=== PATIENT | male | born 1960 | race African-American/Black ===

== ENCOUNTER 2023-05-05 11:49 | Inpatient (IN) | payer MEDICAID, SELFPAY ==
[2023-05-05] VITALS (28 sets, daily range): BP systolic 82–132; BP diastolic 51–91; PULSE 94–121; RESP 20–41; TEMP 36.6–38.2; O2SAT 92–100; BMI 22.5
--- NOTE | 2023-05-05 12:03 | EKG12_ITS ---
Test Reason : ALT LOC Blood Pressure : / mmHG Vent. Rate : 107 BPM Atrial Rate : 107 BPM P-R Int : 112 ms QRS Dur : 076 ms QT Int : 348 ms P-R-T Axes : 045 040 050 degrees QTc Int : 464 ms Sinus tachycardia Otherwise normal ECG Confirmed by Aj Younger ([id number]), fashion editor ELIZABETH CAO ([id number]) on 05/06/2023 10:34:44 AM Referred By: Confirmed By:Aj Younger
--- NOTE | 2023-05-05 12:04 | CT_ITS ---
EXAM: CT HEAD WITHOUT INTRAVENOUS CONTRAST CLINICAL INDICATION: AMS TECHNIQUE: Multiple axial images were obtained of the head without intravenous contrast. This CT exam was performed using one or more of the following dose reduction techniques: automated exposure control, adjustment of the mA and/or kV according to patient size, and/or use of iterative reconstruction technique. COMPARISON: No relevant prior studies available. FINDINGS: BRAIN AND EXTRA-AXIAL SPACES: Chronic bilateral basal ganglia and left thalamic lacunar infarcts noted. No hemorrhage or mass effect. No acute ischemia. Areas of diminished white matter density noted within both cerebral hemispheres suggestive of chronic microvascular change. Prominence of the cortical sulci and ventricles related to volume loss change. BONES/JOINTS: Normal calvarium. SINUSES: Mucoperiosteal thickening of the right maxillary sinus noted indicative of chronic sinusitis. MASTOID AIR CELLS: Normal. Clear. CT/Brain/Head without Contrast IMPRESSION: No acute intracranial abnormality. Chronic microvascular changes. Electronically Signed: Cricket Lancaster MD at 13:36 EST ,
--- NOTE | 2023-05-05 12:07 | ED.VIS.DYS ---
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 Nicotine dependence, other tobacco product, uncomplicated Other hereditary and idiopathic neuropathies Type 2 diabetes mellitus without complications Vitamin D deficiency, unspecified Home Medications ammonium lactate 12 % topical cream 1 applic topical BID PRN dry skin 05/05/23 [History Last Taken Unknown] aspirin 81 mg chewable tablet 1 tab feeding tube DAILY CARDIOVASCULAR 05/05/23 [History Last Taken Unknown] atorvastatin 80 mg tablet 80 mg feeding tube DAILY CHOLESTEROL 05/05/23 [History Last Taken Unknown] carvedilol 25 mg tablet 25 mg feeding tube BID HIGH BLOOD PRESSURE 05/05/23 [History Last Taken Unknown] cholecalciferol (vitamin D3) 50 mcg (2,000 unit) capsule 50 mcg feeding tube DAILY VIT D DEFICIENCY 05/05/23 [History Last Taken Unknown] insulin glargine 100 unit/mL subcutaneous solution 16 unit subcut QPM DIABETES 05/05/23 [History Last Taken Unknown] losartan 50 mg tablet 50 mg feeding tube DAILY HIGH BLOOD PRESSURE 05/05/23 [History Last Taken Unknown] multivitamin with iron-mineral 1 tab feeding tube DAILY VITAMIN 05/05/23 [History Last Taken Unknown] thiamine HCl (vitamin B1) 100 mg tablet 100 mg feeding tube DAILY VITAMIN B DIFICIENCY 05/05/23 [History Last Taken Unknown] Allergy/AdvReac Type Severity Reaction Status Date / Time No Known Allergies Allergy Verified 05/05/23 11:58 Social History Smoking Status: Former smoker EXAM Physical Exam Const Vital Signs: 05/05/23 11:50 05/05/23 11:58 05/05/23 11:58 Temperature 98 F Temperature Source Temporal Pulse Rate 110 H 121 H Respiratory Rate 34 H 41 H Respiratory Effort Short of Breath Respiratory Depth Shallow Respiratory Pattern Tachypnea Blood Pressure 83/59 L Blood Pressure Mean 67 Pulse Ox 93 Oxygen Delivery Method Non-Rebreather Non-Rebreather Oxygen Flow Rate (L/min) 05/05/23 12:00 05/05/23 12:27 05/05/23 12:28 Temperature Temperature Source Pulse Rate 107 H Respiratory Rate 34 H Respiratory Effort Respiratory Depth Respiratory Pattern Blood Pressure 84/54 L 98/70 Blood Pressure Mean 64 79 Pulse Ox 96 94 Oxygen Delivery Method Nasal Cannula Oxygen Flow Rate (L/min) 05/05/23 13:18 Temperature Temperature Source Pulse Rate 102 H Respiratory Rate 25 H Respiratory Effort Respiratory Depth Respiratory Pattern Blood Pressure 94/60 Blood Pressure Mean 71 Pulse Ox 100 Oxygen Delivery Method High Flow Oxygen Flow Rate (L/min) 15 [facility] Medical decision making narrative: HISTORY OF PRESENT ILLNESS: 63 M here with AMS, difficulty breathing. The patient cannot provide a reliable history. Spoke to mom over the phone. Noted facility called to say the patient was having problems breathing. Notes hx of CVA, right sided paralysis. Wants pt to be full code. REVIEW OF SYSTEMS: unable to obtain ROS given mental status PHYSICAL EXAM: Nursing triage notes reviewed, Vital signs reviewed Constitutional: please see mdm HENT: MMM Eyes: Pupils equal round and reactive to light, Extraocular muscles intact Neck: No stridor, no JVD, full neck ROM Lungs: Clear to auscultation, No wheezing or rales. No increased work of breathing, no conversational dyspnea, no accessory muscle use, no nasal flaring. No respiratory distress noted Heart: Regular rate and rhythm, No murmurs, No rubs and No gallops, 2+ distal pulses (radial, femoral, posterior tibial) in all extremities Abdomen: Soft, there is no tenderness, rigidity, rebound or guarding, no obvious peritoneal signs, no palpable pulsatile abdominal masses, no auscultated abdominal bruit : No CVAT rectal: Performed with brenda Pritchett RN revealed dark stool. Sent for Hemoccult Extremities: No edema Neuro: No focal neurological deficits, cranial nerves II through XII intact, 5/5 strength in all extremities. Intact sensation to light touch in all extremities, 2+ reflexes bilateral patella tendons. Normal gait. No ataxia. Skin: No rash or lesions noted MEDICAL DECISION MAKING: Chief Complaint: AMS External records reviewed: No records noted in [facility] Factors affecting care: CVA, right hemiplegia, type 2 diabetes, COPD Social determinants of health: facility resident History obtained from others: EMS, family Consults: n internal medicine, critical care [facility] Narrative: Patient was initially hypotensive, tachycardic and tachypneic. He was also altered and somnolent responsive to painful stimuli minimally. I considered placing the patient on mechanical ventilation however took a cautious approach given hypotension and signs of tachypnea and concern for. The patient decompensation and long-term issues with being able to be weaned off the ventilator. I opted to place the patient on high flow nasal cannula to provide better oxygenation and to resuscitate the patient before I would consider intubating. I considered the following differential diagnosis: sepsis, DKA, UTI, metabolic or infectious encephalopathy, ICH, pneumonia, COVID, CHF, arrhythmia, anemia ALL IMAGES (IF OBTAINED) HAVE BEEN PERSONALLY REVIEWED AND INTERPRETED BY MYSELF. VBG without respiratory acidosis, no metabolic acidosis, no evidence of DKA CBC with leukocytosis, mild anemia, no thrombocytopenia Acetone negative Lactate elevated consistent with endorgan hypoperfusion concerning for distributive infection BMP with acute kidney injury, no significant electrolyte abnormalities,, no anion gap, bicarb normal limit suggestive of no metabolic acidosis High-sensitivity troponin is negative, no evidence of myocardial ischemia Serum albumin low consistent with malnourishment Chest x-ray was read reviewed myself shows evidence of right lower lobe infiltrate consistent with pneumonia. Radiologist agrees my interpretation CT scan head shows no evidence of intracranial abnormality The synthesis of the patient's history, physical exam, labs and images suggest respiratory failure secondary to community-acquired pneumonia. Patient received broad-spectrum antibiotics. Blood cultures and urine culture pending at this time. Given patient's reliance on high flow nasal cannula oxygen he will need admission to the intensive care unit. Discussed this with the hospitalist (Dr. Barrera). The patient and/or family, caregivers express understanding. The patient and/or family, caregivers agrees with the plan. Shared decision making: I will have a discussion with the patient and or visitors regarding risk/benefits of further testing or admission. They will be made aware of of the risk/benefits inherent in this decision they will be given the opportunity to voice understanding. Total critical care time today provided was at least 60 minutes. This excludes separately billable procedures. Critical care time (if documented) is secondary to the patient having high probability of clinically significant/life threatening deterioration in the patient's condition which required my urgent intervention. Impression: 1. AMS 2. Acute Respiratory Failure 3. Community-acquired pneumonia Dispo: Admit to ICU This note was generated with [employer] software. It may contain incorrect words, spelling, and punctuation that were not noted in review of the chart prior to signing. Lab Data Labs: Laboratory Results - last 24 hr 05/05/23 05/05/23 05/05/23 12:02 12:49 12:55 WBC 15.2 H RBC 4.74 Hgb 12.9 L Hct 41.6 MCV 87.8 MCH 27.2 MCHC 31.0 L RDW Std Deviation 39.8 RDW Coeff of [place] 12.4 Plt Count 219 MPV 12.7 H Immature Gran % (Auto) 0.300 Neut % (Auto) 77.9 H Lymph % (Auto) 13.0 L [place] % (Auto) 8.2 Eos % (Auto) 0.1 Baso % (Auto) 0.5 Absolute Neuts (auto) 11.8 H Absolute Lymphs (auto) 1.98 Nucleated RBC % 0 PT 14.2 INR 1.1 APTT 22.6 L Sodium 143 Potassium 4.7 Chloride 106 Carbon Dioxide 32.0 Anion Gap 5 BUN 77 H Creatinine 1.70 H Estim Creat Clear Calc 47.37 Est GFR (MDRD) Af Amer 53 L Est GFR (MDRD) Non-Af 44 L BUN/Creatinine Ratio 45.3 H Glucose 370 H Lactic Acid 3.0 H* Calcium 10.1 Total Bilirubin 0.40 AST 9 L ALT 26 Alkaline Phosphatase 96 Troponin I High Sens 7 Total Protein 7.0 Albumin 3.0 L Globulin 4.0 Albumin/Globulin Ratio 0.8 L Urine Color Yellow Urine Clarity Cloudy Urine pH 6.5 Ur Specific [place] 1.015 Urine Protein 100 H Urine Glucose (UA) 50 H Urine Ketones 5 H Urine Occult Blood 250 H Urine Nitrite Negative Urine Bilirubin Negative Urine Urobilinogen 1 H Ur Leukocyte Esterase 25 H Urine RBC 10-25 SEEN Urine WBC 0-5 SEEN Ur Squamous Epith Cells 0 SEEN Amorphous Sediment 4+ Urine Bacteria 0 SEEN Urine Mucus 0 SEEN Ethyl Alcohol < 3.0 Acetone Level NEGATIVE ABG Data ABG results: ABG 05/05/23 12:07 Specimen Type JER Sample Site Not entered O2 % 15.0 VBG pH 7.44 H VBG pO2 22 L VBG HCO3 33 H VBG Total CO2 35 H VBG O2 Sat (Calc) 39 L VBG Base Excess 9 H POC Mix VBG pCO2 Pt Tmp 48.7 O2 Delivery Device HFNC Radiography Diagnostic Testing: Clinical Impression(s) from Imaging Studies Brain CT 05/05/23 12:04 IMPRESSION: No acute intracranial abnormality. Chronic microvascular changes. Electronically Signed: Cricket Lancaster MD at 13:36 EST , Chest X-Ray 05/05/23 12:20 IMPRESSION: Right lower lobe pneumonia. Question small left lower lobe infiltrate. Electronically Signed: Cricket Lancaster MD at 12:51 EST , Discharge Plan Dx/Rx/DC Orders Clinical Impression: Acute hypoxemic respiratory failure Disposition Disposition: Acute Care Hospital [facility] Discharge Date/Time: 05/05/23 14:26
[2023-05-05] MEDS: 0.9% Normal Saline (1000mL) 1,000 ML 999 ML IV ×3 (12:08→15:17)
[2023-05-05 12:12] LABS: Blood Gas Specimen Type VEN; O2 Delivery Device HFNC; SITE Not entered; VBG BASE EXCESS 9 mmol/L (-1.0-3.5); VBG Bicarbonate 33 mmol/L (22-26); VBG PO2 22 mmHg (25-40); VBG SO2 39 % (50-70); VBG TCO2 35 mmol/L (23-33); VBG pCO2 48.7 mmHg (41-51); VBG pH 7.44 (7.32-7.42)
--- NOTE | 2023-05-05 12:20 | RAD_ITS ---
EXAM: XR CHEST, 1 VIEW CLINICAL INDICATION: AMS TECHNIQUE: Frontal view of the chest. COMPARISON: No relevant prior studies available. FINDINGS: LUNGS AND PLEURAL SPACES: Airspace opacification of the right lower lobe consistent with pneumonia. Questionable infiltrate left lung base. HEART: Normal heart size. MEDIASTINUM: No mediastinal or hilar mass. BONES/JOINTS: No acute abnormality. RAD/Chest 1 View (Portable) IMPRESSION: Right lower lobe pneumonia. Question small left lower lobe infiltrate. Electronically Signed: Cricket Lancaster MD at 12:51 EST ,
[2023-05-05 12:21] LABS: Absolute Lymphocyte Count 1.98 X10^3/uL (0.83-4.51); Absolute Neutrophil Count 11.8 X10^3/uL (2.0-7.7); Basophil# 0.08 X10^3/uL; Basophil% 0.5 % (0-1); Eosinophil# 0.01 X10^3/uL; Eosinophils% 0.1 % (0-5); Hematocrit 41.6 % (40-54); Hemoglobin 12.9 g/dL (13.0-16.5); Lymphocyte # 1.98 X10^3/ul (0.83-4.51); Mean Corpuscular Hgb 27.2 pg (27.0-32.0); Mean Corpuscular Volume 87.8 fL (80-94); Mean Platelet Vol. 12.7 fl (6.2-12.0); Monocyte# 1.24 X10^3/uL; Monocyte% 8.2 % (0-10); NRBC Flagged by Analyzer 0 % (0-5); Neutrophil # 11.82 X10^3/uL (2.7-7.7); Neutrophil % 77.9 % (47-70); Platelet Count 219 K/mm3 (150-450); RBC Distribution Width CV 12.4 % (11.6-14.6); RBC Distribution Width SD 39.8 fl (35.1-43.9); Red Blood Count 4.74 M/mm3 (4.6-6.2); White Blood Count 15.2 K/mm3 (4.4-11.0)
[2023-05-05 12:26] LABS: International Normalized Ratio 1.1; Prothrombin Time (Protime)PT. 14.2 SECONDS (11.7-14.9)
[2023-05-05 12:28] LABS: Partial Thromboplast Time 22.6 Seconds (24.1-36.2)
--- NOTE | 2023-05-05 12:32 | ED.RN ---
NO OLD EKG
[2023-05-05 12:34] LABS: ALB/GLOB Ratio 0.8 RATIO (0.9-2.4); AST(SGOT) 9 U/L (15-37); Alanine Aminotransfer ALT/SGPT 26 U/L (16-61); Alkaline Phosphatase 96 U/L (45-117); Anion Gap 5 (5-15); BUN 77 mg/dL (7-18); BUN/Creat Ratio 45.3 RATIO (10-20); Calcium,Total 10.1 mg/dL (8.5-10.1); Chloride 106 mmol/L (98-107); EST Glomerular Filtration Rate 44 mL/min (>60); Est Glom Filt Rate - Afr Amer 53 mL/min (>60); Estimated Creatinine Clearance 47.37 ml/min; Glucose 370 mg/dL (74-106); Potassium 4.7 mmol/L (3.5-5.1); Sodium Level 143 mmol/L (136-145); Troponin-I HS 7 pg/mL (3.0-78.0)
[2023-05-05 12:59] LABS: Bacteria 0 SEEN /hpf (None Seen); Mucous, Urine 0 SEEN /hpf (<or=2+); Squamous Epithelial Cells - UA 0 SEEN /hpf (0-5)
[2023-05-05 13:03] LABS: Color, Urine Yellow (Yellow); Glucose, Dipstick 50 mg/dl (Normal); Ketone-Dipstick 5 mg/dl (Negative); Leukocyte Esterase-Dipstick 25 /ul (Negative); Nitrite-Dipstick Negative (Negative); Occult Blood-Urine 250 /ul (Negative); Protein-Dipstick 100 mg/dl (Negative); Specific Gravity, Urine 1.015 (1.002-1.030); Urine Bilirubin Dipstick Negative (Negative); Urine Clarity Cloudy (Clear); Urine Urobilinogen 1 mg/dl (Normal); Urine pH 6.5 (5.0 - 8.0)
[2023-05-05 13:12] LABS: Amorphous Sediment 4+; Red Blood Cells-Urine 10-25 SEEN /hpf (0-5); White Blood Cells 0-5 SEEN /hpf (0-5)
[2023-05-05] MEDS: Piperacil/Tazobactam 4.5 GM in 0.9% Normal Saline (100mL MB+) 100 ML IV (13:16)
[2023-05-05 13:45] LABS: Alcohol, Blood (Medical)-Serum < 3.0 mg/dL
--- NOTE | 2023-05-05 13:45 | HP.PCM_ITS ---
HPI - General General Date of Admission: 05/05/23 Date of Service: 05/05/23 Chief Complaint: shortness of breath HPI Narrative DREA MORLEY, is a 63 M who presents via the ED on 05/05/2023 with a PMH as outlined with a complaint of shortness of breath. [facility] from [facility] facility. He was noted to be short of breath and somnolent in his SNF. Patient was alert but could not give much of a history. Vitals in the ED were BP of 94/60, MA of 102, RR of 25 and oxygen sats of 100% on 15L of high flow oxygen. CBC showed hemoglobin of 12.9 with WBC of 15.2 with platelets of 219. Chemistry shows sodium of 143 with potassium of 4.7 and creatinine of 1.7. Lactic acid was 3 and calcium was 10.1. Urinalysis showed 3+ bacteria. CXR showed a right lower lobe pneumonia and brain CT showed no acute intracranial abnormality. He is being admitted to be managed for acute hypoxic respiratory failure due to community acquired pneumonia. [facility] Medical History (Updated 05/05/23 @ 13:[address] 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 Nicotine dependence, other tobacco product, uncomplicated Other hereditary and idiopathic neuropathies Type 2 diabetes mellitus without complications Vitamin D deficiency, unspecified Home Medications ammonium lactate 12 % topical cream 1 applic topical BID PRN dry skin 05/05/23 [History Last Taken Unknown] aspirin 81 mg chewable tablet 1 tab feeding tube DAILY CARDIOVASCULAR 05/05/23 [History Last Taken Unknown] aspirin 81 mg tablet,delayed release (Adult Aspirin Regimen) 81 mg PO DAILY heart 05/05/23 [History Last Taken Unknown] atorvastatin 80 mg tablet 80 mg PO DAILY cholesterol 05/05/23 [History Last Taken Unknown] atorvastatin 80 mg tablet 80 mg feeding tube DAILY CHOLESTEROL 05/05/23 [History Last Taken Unknown] carvedilol 25 mg tablet 25 mg PO BID blood pressur 05/05/23 [History Last Taken Unknown] carvedilol 25 mg tablet 25 mg feeding tube BID HIGH BLOOD PRESSURE 05/05/23 [History Last Taken Unknown] cholecalciferol (vitamin D3) 50 mcg (2,000 unit) capsule 50 mcg PO DAILY bone health 05/05/23 [History Last Taken Unknown] cholecalciferol (vitamin D3) 50 mcg (2,000 unit) capsule 50 mcg feeding tube DA [place]ENA VIT D DEFICIENCY 05/05/23 [History Last Taken Unknown] insulin glargine 100 unit/mL subcutaneous solution 16 unit subcut QPM DIABETES 05/05/23 [History Last Taken Unknown] insulin glargine-yfgn 100 unit/mL subcutaneous solution 16 unit subcut QPM blood sugar 05/05/23 [History Last Taken Unknown] losartan 50 mg tablet 50 mg feeding tube DAILY HIGH BLOOD PRESSURE 05/05/23 [History Last Taken Unknown] losartan 50 mg tablet (Cozaar) 50 mg PO DAILY heart 05/05/23 [History Last Taken Unknown] multivitamin with iron-mineral 1 tab feeding tube DAILY VITAMIN 05/05/23 [History Last Taken Unknown] thiamine HCl (vitamin B1) 100 mg tablet 100 mg PO DAILY supplement 05/05/23 [History Last Taken Unknown] thiamine HCl (vitamin B1) 100 mg tablet 100 mg feeding tube DAILY VITAMIN B DIFICIENCY 05/05/23 [History Last Taken Unknown] Allergy/AdvReac Type Severity Reaction Status Date / Time No Known Allergies Allergy Verified 05/05/23 11:58 Social History Smoking Status: Former smoker ROS Review of Systems ROS Unobtainable: due to encephalopathy Vital Signs Vital Signs Vital Signs: 05/05/23 11:50 05/05/23 11:58 05/05/23 11:58 Temperature 98 F Temperature Source Temporal Pulse Rate 110 H 121 H Respiratory Rate 34 H 41 H Respiratory Effort Short of Breath Respiratory Depth Shallow Respiratory Pattern Tachypnea Blood Pressure 83/59 L Blood Pressure Mean 67 Pulse Ox 93 Oxygen Delivery Method Non-Rebreather Non-Rebreather Oxygen Flow Rate (L/min) 05/05/23 12:00 05/05/23 12:27 05/05/23 12:28 Temperature Temperature Source Pulse Rate 107 H Respiratory Rate 34 H Respiratory Effort Respiratory Depth Respiratory Pattern Blood Pressure 84/54 L 98/70 Blood Pressure Mean 64 79 Pulse Ox 96 94 Oxygen Delivery Method Nasal Cannula Oxygen Flow Rate (L/min) 05/05/23 13:18 Temperature Temperature Source Pulse Rate 102 H Respiratory Rate 25 H Respiratory Effort Respiratory Depth Respiratory Pattern Blood Pressure 94/60 Blood Pressure Mean 71 Pulse Ox 100 Oxygen Delivery Method High Flow Oxygen Flow Rate (L/min) 15 Weight Weight: 166 lb 0.129 oz Body Mass Index (BMI) 22.5 Physical Exam Const Constitutional Narrative: alert, opens his eyes in response to voice but could not respond to any questions Orientation / Consciousness: lethargic HEENT normocephalic and head/scalp atraumatic Eyes PERRL and EOMs intact bilaterally Lymph Lymphatic: no lymphadenopathy noted Resp Resp Narrative: diminished breath sounds bilaterally. Coarse crackles in right lower lung base, no crackles. tachypneic. Effort and Inspection: respiratory distress Cardio Cardio Narrative: tachycardia, normal S1 and S2, no murmurs. GI normal to inspection, nondistended, normoactive bowel sounds, soft to palpation, non-tender and non-distended Extremity normal capillary refill, no clubbing, cyanosis or edema and no calf tenderness Skin General Skin Exam: no breakdown Neuro Neuro Narrative: alert, nonverbal, frail. Right hemiplegia with right hand contracted due to history of previous stroke Motor Exam: general weakness Psych Mood & Affect: flat affect Results Lab / Micro Data 05/05/23 12:02 05/05/23 12:02 Labs: Laboratory Results - last 24 hr 05/05/23 12:02: WBC 15.2 H, RBC 4.74, Hgb 12.9 L, Hct 41.6, MCV 87.8, MCH 27.2, MCHC 31.0 L, RDW Std Deviation 39.8, RDW Coeff of [place] 12.4, Plt Count 219, MPV 12.7 H, Immature Gran % (Auto) 0.300, Neut % (Auto) 77.9 H, Lymph % (Auto) 13.0 L, [place] % (Auto) 8.2, Eos % (Auto) 0.1, Baso % (Auto) 0.5, Absolute Neuts (auto) 11.8 H, Absolute Lymphs (auto) 1.98, Nucleated RBC % 0, PT 14.2, INR 1.1, APTT 22.6 L, Sodium 143, Potassium 4.7, Chloride 106, Carbon Dioxide 32.0, Anion Gap 5, BUN 77 H, Creatinine 1.70 H, Estim Creat Clear Calc 47.37, Est GFR (MDRD) Af Amer 53 L, Est GFR (MDRD) Non-Af 44 L, BUN/Creatinine Ratio 45.3 H, Glucose 370 H, Lactic Acid 3.0 H*, Calcium 10.1, Total Bilirubin 0.40, AST 9 L, ALT 26, Alkaline Phosphatase 96, Troponin I High Sens 7, Total Protein 7.0, Albumin 3.0 L, Globulin 4.0, Albumin/Globulin Ratio 0.8 L, Acetone Level NEGATIVE 05/05/23 12:49: Ethyl Alcohol < 3.0 05/05/23 12:55: Urine Color Yellow, Urine Clarity Cloudy, Urine pH 6.5, Ur Specific [place] 1.015, Urine Protein 100 H, Urine Glucose (UA) 50 H, Urine Ketones 5 H, Urine Occult Blood 250 H, Urine Nitrite Negative, Urine Bilirubin Negative, Urine Urobilinogen 1 H, Ur Leukocyte Esterase 25 H, Urine RBC 10-25 SEEN, Urine WBC 0-5 SEEN, Ur Squamous Epith Cells 0 SEEN, Amorphous Sediment 4+, Urine Bacteria 0 SEEN, Urine Mucus 0 SEEN Micro: Microbiology 05/05/23 12:20 Mucosa - Nose SARS-CoV-2, Influenza & RSV (PCR) - Final 05/05/23 12:25 Stool Stool Occult Blood (JOANA) - Final Occult Blood Positive ABG Data ABG results: ABG 05/05/23 12:07 Specimen Type JER Sample Site Not entered O2 % 15.0 VBG pH 7.44 H VBG pO2 22 L VBG HCO3 33 H VBG Total CO2 35 H VBG O2 Sat (Calc) 39 L VBG Base Excess 9 H POC Mix VBG pCO2 Pt Tmp 48.7 O2 Delivery Device HFNC Imaging Radiology Impression Brain CT 05/05/23 12:04 IMPRESSION: No acute intracranial abnormality. Chronic microvascular changes. Electronically Signed: Cricket Lancaster MD at 13:36 EST , Chest X-Ray 05/05/23 12:20 IMPRESSION: Right lower lobe pneumonia. Question small left lower lobe infiltrate. Electronically Signed: Cricket Lancaster MD at 12:51 EST , Assessment & Plan Assessment/Plan (1) Acute hypoxemic respiratory failure: (2) Pneumonia: PLAN: Plan #Acute hypoxic respiratory failure due to community acquired pneumonia * admitted with a complaint of shortness of breath. * CXR showed right lower lobe pneumonia * now on 15L of oxygen. * start on IV zosyn and vancomycin * get urine for strep and legionella * get sputum and blood cultures * consult critical care * titrate oxygen to maintain sats >90% * low threshold for intubation * #Lactic acidosis:lactic acid is 3. Likely due to hypoxia. Should resolve with hydration and as respiratory status improves #History of stroke: has right sided hemiplegia. Will monitor. On aspirin, plavix and carvedilol. Hold carvedilol due to hypotension #Hypertension: On losartan and carvedilol. Will hold these due to hypotension. #Type 2 diabetes mellitus: On Lantus 16 units twice daily. Insulin sliding sca le. Accu-Cheks ACHS. #DVT prophylaxis; lovenox Code status: full code- unverified. Patient unable to communicate, but per ED doctor he spoke to patient's mother who wanted him to be full code. Charges/Coding Visit Charges Inpatient E&M: 10513 Init Hosp L3 Procedures Hospitalists Procedures: 51816 Advncd Care Plan 30 Min
[2023-05-05] MEDS: Vancomycin HCl 1,250 MG in 0.9% Normal Saline (250mL Bag) 250 ML 167 MG IV (13:56)
--- NOTE | 2023-05-05 14:01 | ED.RN ---
PER DR DESAI TO ADMINISTER 3RD 1000ML AT A RATE OF 250MLS/HR ONCE 2ND 1000ML BOLUS IS COMPLETE.
[2023-05-05 14:29] LABS: Bedside Glucose 351 mg/dL (74-106)
--- NOTE | 2023-05-05 14:40 | PCM.RX.CS ---
Consult Antibiotic Management Pharmacy has been consulted to manage selected antibiotic: Vancomycin Type of Intervention Type of Consult: New start Suspected Infection Suspected Infection: Pneumonia Prior Doses of Antibiotics Prior Doses of Antibiotics Received/Current Regimen: Vancomycin 1250 mg IV x 1 given 05/05/23 @ 1356, also patient is on piperacillin/tazobactam 3.375 grams Q8H Labs Labs: Sodium 143 mmol/L (136-145) 05/05/23 12:02 Potassium 4.7 mmol/L (3.5-5.1) 05/05/23 12:02 Chloride 106 mmol/L (98-107) 05/05/23 12:02 Carbon Dioxide 32.0 mmol/L (21.0-32.0) 05/05/23 12:02 Anion Gap 5 (5-15) 05/05/23 12:02 BUN 77 mg/dL (7-18) H 05/05/23 12:02 Creatinine 1.70 mg/dL (0.70-1.30) H 05/05/23 12:02 Est GFR (MDRD) Af Amer 53 mL/min (>60) L 05/05/23 12:02 Est GFR (MDRD) Non-Af 44 mL/min (>60) L 05/05/23 12:02 BUN/Creatinine Ratio 45.3 RATIO (10-20) H 05/05/23 12:02 Glucose 370 mg/dL (74-106) H 05/05/23 12:02 Microbiology Microbiology: Microbiology 05/05/23 12:20 Mucosa - Nose SARS-CoV-2, Influenza & RSV (PCR) - Final 05/05/23 12:25 Stool Stool Occult Blood (JOANA) - Final Occult Blood Positive Dosing Weight Weight used for dosin.3 kg Estimated Creatinine Clearance Estimated Creatinine Clearance: ~47 Goal Trough Goal Trough: 15-20 mcg/mL Pharmacy Plan for Drug Dosing Pharmacy Plan for Drug Dosing: Vancomycin 1250 mg IV x1, followed by 500 mg IV Q12H based on weight and renal function Pharmacy Service will continue to monitor and adjust dosing as required. Follow-Up Labs Follow-Up Labs: Trough: Vancomycin Date/Time Labs Ordered Labs to be done on [date and time ordered]: 05/10/23 @ 8602
--- NOTE | 2023-05-05 15:34 | PCMCONS.TICU ---
HPI Consult Data Date of Consult: 05/05/23 HPI Narrative HPI Narrative: 63yo M w/ CVA 12/2022 c/b R sided hemiplegia, DM, h/o EtOH/tobacco abuse, anemia, dysphagia s/p G-tube who was admitted for respiratory failure. He is unable to provide much history. Per his sister he was apparently [facility] when [facility], however earlier today he apparently developed worsening lethargy and respiratory distress and so was sent here. He was hypoxic on arrival requiring up to 15L NC, now weaning down. Also febrile and hypotensive, now s/p 3L IVF boluses. He is lethargic but is arousable and will answer some simple questions when stimulated. At baseline per family he does have some intermittent mild confusion and word slurring, but can carry some conversations. He apparently is given some careful oral feeding along with G tube feedings, no reported vomiting or choking recently. He was also noted to have several melanic bowel movements here. No prior h/o cardiac or pulmonary disease. Used to drink EtOH heavily daily and smoke tobacco until he had his CVA. 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 Nicotine dependence, other tobacco product, uncomplicated Other hereditary and idiopathic neuropathies Type 2 diabetes mellitus without complications Vitamin D deficiency, unspecified Home Medications ammonium lactate 12 % topical cream 1 applic topical BID PRN dry skin 05/05/23 [History Last Taken Unknown] aspirin 81 mg chewable tablet 1 tab feeding tube DAILY CARDIOVASCULAR 05/05/23 [History Last Taken Unknown] atorvastatin 80 mg tablet 80 mg feeding tube DAILY CHOLESTEROL 05/05/23 [History Last Taken Unknown] carvedilol 25 mg tablet 25 mg feeding tube BID HIGH BLOOD PRESSURE 05/05/23 [History Last Taken Unknown] cholecalciferol (vitamin D3) 50 mcg (2,000 unit) capsule 50 mcg feeding tube DAILY VIT D DEFICIENCY 05/05/23 [History Last Taken Unknown] insulin glargine 100 unit/mL subcutaneous solution 16 unit subcut QPM DIABETES 05/05/23 [History Last Taken Unknown] losartan 50 mg tablet 50 mg feeding tube DAILY HIGH BLOOD PRESSURE 05/05/23 [History Last Taken Unknown] multivitamin with iron-mineral 1 tab feeding tube DAILY VITAMIN 05/05/23 [History Last Taken Unknown] thiamine HCl (vitamin B1) 100 mg tablet 100 mg feeding tube DAILY VITAMIN B DIFICIENCY 05/05/23 [History Last Taken Unknown] Allergy/AdvReac Type Severity Reaction Status Date / Time No Known Allergies Allergy Verified 05/05/23 11:58 Social History Smoking Status: Former smoker ROS Review of Systems ROS Unobtainable: due to encephalopathy Objective Data Objective Data Vital Signs: Vital Signs Last response Temperature 38.1 C H 05/05/23 14:55 Temperature Source Core 05/05/23 14:55 Pulse Rate 105 H 05/05/23 14:55 Respiratory Rate 27 H 05/05/23 14:55 Respiratory Effort Short of Breath 05/05/23 11:58 Respiratory Depth Shallow 05/05/23 11:58 Respiratory Pattern Tachypnea 05/05/23 11:58 Blood Pressure 95/55 L 05/05/23 14:55 Blood Pressure Mean 68 05/05/23 14:55 Blood Pressure Source Monitor 05/05/23 14:55 Blood Pressure Position Semi-Fowlers 05/05/23 14:55 Blood Pressure Location Right Arm 05/05/23 14:55 Pulse Ox 100 05/05/23 14:55 Oxygen Delivery Method High Flow 05/05/23 14:55 Oxygen Flow Rate (L/min) 15 05/05/23 14:55 I&O: I&O Last 24 Hours 05/04/23 05/05/23 05/05/23 23:59 11:59 23:59 Intake Total 2099 Balance 2099 I&O: Total Stay 05/05/23 11:49 thru 05/05/23 15:16 Intake Total 2099 Current Meds Ordered / Administered: Current meds ordered / Administered Generic Name Dose Route Start Last Admin Trade Name Freq PRN Reason Stop Dose Admin Acetaminophen 650 mg 05/05/23 14:29 Acetaminophen 325 Mg Tablet PO Q6H PRN PRN Pain 1-10 Or Fever >100.7 Enoxaparin Sodium 40 mg 05/06/23 10:00 Enoxaparin 40 Mg/0.4 Ml Syringe SC DAILY VINCE Sodium Chloride 1,000 mls @ 150 mls/hr 05/05/23 14:29 IV 05/06/23 03:48 .[id number] [facility] Vancomycin IV-PHARMACY TO DOSE 500 mls @ 250 mls/hr 05/05/23 14:29 1 each/ Sodium Chloride IV PRN PRN Rx to Dose Protocol Piperacillin Sod/Tazobactam 50 mls @ 12.5 mls/hr 05/05/23 22:00 Sod 3.375 gm/ Sodium Chloride IV Q8 VINCE Sodium Chloride 250 mls @ 15 mls/hr 05/05/23 14:40 IV .[id number] PRN Additional IVPB Infusion Sodium Chloride 250 mls @ 15 mls/hr 05/05/23 14:40 IV .[id number] PRN Saline Flush Vancomycin HCl 500 mg in 100 mls @ 100 mls/hr 05/06/23 02:00 IV Q12H VINCE Morphine Sulfate 2 - 4 mg 05/05/23 14:29 Morphine 2 Mg/Ml Syringe IV Q3H PRN PRN Pain Score 6-10 Ondansetron HCl 4 mg 05/05/23 14:29 Ondansetron 4 Mg/2 Ml Vial IV Q8H PRN PRN NAUSEA/VOMITING Sodium Chloride 10 - 40 ml 05/05/23 14:40 0.9% Saline Lock 10 Ml Syringe IV UD PRN SALINE FLUSH Vancomycin Protocol 1 lab 05/06/23 23:30 Vancomycin Trough/Random Due 05/07/23 03:30 DAILY [facility] Lab / Micro Data 05/05/23 12:02 05/05/23 12:02 Labs: Laboratory Results - last 24 hr 05/05/23 12:02: WBC 15.2 H, RBC 4.74, Hgb 12.9 L, Hct 41.6, MCV 87.8, MCH 27.2, MCHC 31.0 L, RDW Std Deviation 39.8, RDW Coeff of [place] 12.4, Plt Count 219, MPV 12.7 H, Immature Gran % (Auto) 0.300, Neut % (Auto) 77.9 H, Lymph % (Auto) 13.0 L, [place] % (Auto) 8.2, Eos % (Auto) 0.1, Baso % (Auto) 0.5, Absolute Neuts (auto) 11.8 H, Absolute Lymphs (auto) 1.98, Nucleated RBC % 0, PT 14.2, INR 1.1, APTT 22.6 L, Sodium 143, Potassium 4.7, Chloride 106, Carbon Dioxide 32.0, Anion Gap 5, BUN 77 H, Creatinine 1.70 H, Estim Creat Clear Calc 47.37, Est GFR (MDRD) Af Amer 53 L, Est GFR (MDRD) Non-Af 44 L, BUN/Creatinine Ratio 45.3 H, Glucose 370 H, Lactic Acid 3.0 H*, Calcium 10.1, Total Bilirubin 0.40, AST 9 L, ALT 26, Alkaline Phosphatase 96, Troponin I High Sens 7, Total Protein 7.0, Albumin 3.0 L, Globulin 4.0, Albumin/Globulin Ratio 0.8 L, Acetone Level NEGATIVE 05/05/23 12:49: Ethyl Alcohol < 3.0 05/05/23 12:55: Urine Color Yellow, Urine Clarity Cloudy, Urine pH 6.5, Ur Specific [place] 1.015, Urine Protein 100 H, Urine Glucose (UA) 50 H, Urine Ketones 5 H, Urine Occult Blood 250 H, Urine Nitrite Negative, Urine Bilirubin Negative, Urine Urobilinogen 1 H, Ur Leukocyte Esterase 25 H, Urine RBC 10-25 SEEN, Urine WBC 0-5 SEEN, Ur Squamous Epith Cells 0 SEEN, Amorphous Sediment 4+, Urine Bacteria 0 SEEN, Urine Mucus 0 SEEN 05/05/23 13:58: POC Glucose 351 H Micro: Microbiology 05/05/23 12:20 Mucosa - Nose SARS-CoV-2, Influenza & RSV (PCR) - Final 05/05/23 12:25 Stool Stool Occult Blood (JOANA) - Final Occult Blood Positive ABG Data ABG results: ABG 05/05/23 12:07 Specimen Type JER Sample Site Not entered O2 % 15.0 VBG pH 7.44 H VBG pO2 22 L VBG HCO3 33 H VBG Total CO2 35 H VBG O2 Sat (Calc) 39 L VBG Base Excess 9 H POC Mix VBG pCO2 Pt Tmp 48.7 O2 Delivery Device HFNC Imaging Radiology Impression Brain CT 05/05/23 12:04 IMPRESSION: No acute intracranial abnormality. Chronic microvascular changes. Electronically Signed: Cricket Lancaster MD at 13:36 EST , Chest X-Ray 05/05/23 12:20 IMPRESSION: Right lower lobe pneumonia. Question small left lower lobe infiltrate. Electronically Signed: Cricket Lancaster MD at 12:51 EST , Assessment and Plan . Assessment and plan: Physical Exam: Gen - NAD, chronically ill-appearing HEENT - MMM. Sclera anicteric Resp - Diminished in bases. Mild tachypnea CV - RRR. No m/g/r Abd - Soft, NT, ND. +G-tube in place Ext - No c/c/e. MSK - No joint swelling/deformity Skin - No rashes? Neuro - Lethargic. Baseline hemiplegia. Will wake up when stimulated and can answer some simple questions, but falls back asleep I have reviewed the pertinent vital sign, laboratory, and imaging data. ASSESSMENT: # Acute hypoxic respiratory failure # Pneumonia - possible aspiration # GI bleed/melena # Lactic acidosis # YADI - vs CKD, unknown baseline # CVA 12/2022 c/b R sided hemiplegia # DM # h/o EtOH/tobacco abuse # Anemia # Dysphagia s/p G-tube PLAN: -On 12L NC, wean to keep sats > 90%. Can switch to HHFNC if increased WOB; low threshold to intubate if worsening -Empiric vanc/cefepime/doxy (switched zosyn given renal failure). f/u Cx, MRSA nares, urine strep/legionella. COVID/flu/RSV negative -Cont IVF. Monitor for worsening hypotension, may need pressors. Trend lactate -Nebs, mucomyst -Follow CBC. Start PPI gtt. Recommend GI consult -Follow mental status. CT head without acute pathology -Speech eval when improved -SQ insulin FEN/GI: NPO Proph DVT/GI: SCDs, protonix gtt Updated family at bedside Critical Care Time: 60 mins The entirety of this encounter was completed via telemedicine
--- NOTE | 2023-05-05 15:52 | EKG12_ITS ---
Test Reason : routine Blood Pressure : / mmHG Vent. Rate : 106 BPM Atrial Rate : 106 BPM P-R Int : 120 ms QRS Dur : 076 ms QT Int : 326 ms P-R-T Axes : 045 047 042 degrees QTc Int : 433 ms Sinus tachycardia Otherwise normal ECG When compared with ECG of 05-MAY-2023 12:13, MANUAL COMPARISON REQUIRED, DATA IS UNCONFIRMED Confirmed by Aj Younegr ([id number]), avid editor ELIZABETH CAO ([id number]) on 05/07/2023 7:46:43 AM Referred By: Carlos Confirmed By:Aj Younger
[2023-05-05 16:13] LABS: Reflex Lactate? Y
[2023-05-05] MEDS: 0.9% Normal Saline (1000mL) 1,000 ML 100 ML IV (16:26)
[2023-05-05] MEDS: guaiFENesin 10 ML UDC (200MG/10ML) GT ×2 (17:13→22:33)
[2023-05-05] MEDS: Doxycycline 100 MG in Dextrose 5%-Water (250mL Bag) 250 ML 250 MG IV ×2 (17:13→22:15)
[2023-05-05] MEDS: Acetaminophen 650 MG/20 ML UDC GT (17:13)
[2023-05-05] MEDS: Pantoprazole Sodium 80 MG in 0.9% Normal Saline (50mL Bag) 15 ML 420 MG IV BOLUS (17:13)
[2023-05-05] MEDS: 0.9% Normal Saline (250mL Bag) 250 ML 15 ML IV (17:20)
[2023-05-05 17:24] LABS: Lactic Acid 4.2 mmol/L (0.4-1.9)
[2023-05-05] MEDS: Pantoprazole Sodium 80 MG in 0.9% Normal Saline (100mL Bag) 80 ML 10 MG CONT INF (17:24)
[2023-05-05 17:57] LABS: Hematocrit 34.3 % (40-54); Hemoglobin 10.2 g/dL (13.0-16.5); Mean Corp Hgb Conc 29.7 g/dL (32-36); Mean Corpuscular Hgb 26.6 pg (27.0-32.0); Mean Corpuscular Volume 89.6 fL (80-94); Mean Platelet Vol. 12.5 fl (6.2-12.0); Platelet Count 155 K/mm3 (150-450); RBC Distribution Width CV 12.4 % (11.6-14.6); RBC Distribution Width SD 39.8 fl (35.1-43.9); Red Blood Count 3.83 M/mm3 (4.6-6.2); White Blood Count 13.4 K/mm3 (4.4-11.0)
[2023-05-05 18:31] LABS: M R Staph aureus DNA By PCR Negative (Negative); Staph aureus DNA By PCR POSITIVE (Negative)
[2023-05-05 18:32] LABS: Probe Check PASS; Specimen Processing Control PASS
[2023-05-05] MEDS: Ipratropium/Albuterol Sulfate 3 ML AMPUL.NEB INHALATION (19:01)
[2023-05-05] MEDS: Budesonide Respules 0.5 MG/2 ML AMPUL.NEB. INHALATION (19:01)
[2023-05-05] MEDS: Acetylcysteine 800 MG/4 ML VIAL.NEB. INHALATION (19:03)
[2023-05-05] MEDS: Insulin Glargine-YFGN 100 UNIT/ML Pen 16 UNIT SC (22:08)
[2023-05-05] MEDS: Cefepime HCl 1 GM in 0.9% Normal Saline (50mL MB+) 50 ML IV (22:10)
[2023-05-05 22:50] LABS: Bedside Glucose 354 mg/dL (74-106)
[2023-05-06] VITALS (19 sets, daily range): BP systolic 87–133; BP diastolic 53–94; PULSE 92–113; RESP 17–34; TEMP 36.9–38.2; O2SAT 27–100; BMI 22.5; BMI 27.8
--- NOTE | 2023-05-06 00:04 | CT_ITS ---
EXAM: CT CHEST WITHOUT INTRAVENOUS CONTRAST CLINICAL INDICATION: electrical alternans TECHNIQUE: Helically acquired images were obtained of the chest without intravenous contrast. This CT exam was performed using one or more of the following dose reduction techniques: automated exposure control, adjustment of the mA and/or kV according to patient size, and/or use of iterative reconstruction technique. RADIATION DOSE: CTDIvol = 14.78 mGy, DLP = 528.03 mGy-cm COMPARISON: Single view chest 05/05/2023 FINDINGS: LUNGS AND PLEURAL SPACES: Dense right lower lobe consolidation with some additional patchy airspace disease in the right upper and left lower lobes. Small right pleural effusion. No mass. HEART: Unremarkable. Heart size is normal. No pericardial effusion. No significant coronary artery calcifications. MEDIASTINUM: Unremarkable. No mediastinal or hilar adenopathy. Esophagus is unremarkable. No hiatal hernia. THYROID: Unremarkable. No thyroid lesions. BONES/JOINTS: Unremarkable. No suspicious lytic or blastic abnormality. VASCULATURE: Unremarkable. Thoracic aorta is non-dilated. CT/Chest without Contrast IMPRESSION: Dense right lower lobe consolidation with some additional patchy airspace disease in the right upper and left lower lobes. Small right pleural effusion. Findings consistent with pneumonia. Electronically Signed: Tez Ibarra MD at 0:58 EST ,
--- NOTE | 2023-05-06 00:05 | NURSING ---
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 Notified Dr. Thomason of findings, STAT chest CT/noncon; pt transported to radiology on monitor and O2 at 2lpm NC. Returned to room and repositioned in bed.
[2023-05-06 01:17] LABS: Absolute Neutrophil Count 8.1 X10^3/uL (2.0-7.7); Basophil# 0.04 X10^3/uL; Basophil% 0.4 % (0-1); Eosinophil# 0.02 X10^3/uL; Eosinophils% 0.2 % (0-5); Hematocrit 34.8 % (40-54); Hemoglobin 10.5 g/dL (13.0-16.5); Lymphocyte % 22.3 % (19-41); Mean Corp Hgb Conc 30.2 g/dL (32-36); Mean Corpuscular Hgb 26.9 pg (27.0-32.0); Mean Corpuscular Volume 89.2 fL (80-94); Mean Platelet Vol. 12.7 fl (6.2-12.0); Monocyte# 0.55 X10^3/uL; Monocyte% 4.9 % (0-10); NRBC Flagged by Analyzer 0 % (0-5); Neutrophil # 8.05 X10^3/uL (2.7-7.7); Neutrophil % 71.9 % (47-70); Platelet Count 171 K/mm3 (150-450); RBC Distribution Width CV 12.5 % (11.6-14.6); RBC Distribution Width SD 40.5 fl (35.1-43.9); White Blood Count 11.2 K/mm3 (4.4-11.0)
[2023-05-06 01:32] LABS: Anion Gap 5 (5-15); BUN 70 mg/dL (7-18); BUN/Creat Ratio 47.3 RATIO (10-20); Calcium,Total 9.1 mg/dL (8.5-10.1); Chloride 115 mmol/L (98-107); Creatinine, Serum 1.48 mg/dL (0.70-1.30); EST Glomerular Filtration Rate 51 mL/min (>60); Est Glom Filt Rate - Afr Amer 62 mL/min (>60); Estimated Creatinine Clearance 56.07 ml/min; Glucose 400 mg/dL (74-106); Potassium 3.9 mmol/L (3.5-5.1); Sodium Level 145 mmol/L (136-145)
[2023-05-06] MEDS: Acetylcysteine 800 MG/4 ML VIAL.NEB. INHALATION ×2 (01:36→06:49)
[2023-05-06] MEDS: Ipratropium/Albuterol Sulfate 3 ML AMPUL.NEB INHALATION ×4 (01:36→20:04)
[2023-05-06 01:42] LABS: Lactic Acid 3.3 mmol/L (0.4-1.9)
--- NOTE | 2023-05-06 01:52 | CPS ---
Patient agitated and not keeping aerosol mask on. Patient only took half of treatment at this time
[2023-05-06] MEDS: Vancomycin IV 500 MG/100 ML BAG 100 MG IV ×2 (02:03→13:28)
[2023-05-06] MEDS: 0.9% Saline Lock 10 ML Syringe IV ×3 (02:04→22:05)
[2023-05-06] MEDS: Pantoprazole Sodium 80 MG in 0.9% Normal Saline (100mL Bag) 80 ML 10 MG CONT INF ×3 (03:23→22:04)
[2023-05-06] MEDS: 0.9% Normal Saline (1000mL) 1,000 ML 100 ML IV (03:23)
[2023-05-06 05:14] LABS: Reflex Lactate? Y
[2023-05-06] MEDS: guaiFENesin 10 ML UDC (200MG/10ML) GT ×3 (06:49→22:06)
[2023-05-06] MEDS: Budesonide Respules 0.5 MG/2 ML AMPUL.NEB. INHALATION ×2 (06:49→20:04)
--- NOTE | 2023-05-06 07:18 | PCM.PN.INT ---
Assessment & Plan Assessment/Plan (1) Acute hypoxemic respiratory failure: (2) Pneumonia: PLAN: Plan RECOMMENDATIONS: 1. Continue antibiotics as ordered. 2. Discontinue IV fluids. 3. Supplemental oxygen, if needed, to maintain saturations at or above 90%. 4. Maintain n.p.o. status. 5. Speech therapy evaluation. 6. Restart bolus tube feeding per baseline regimen. 7. Continue bronchodilator therapy. IMPRESSIONS: 1. Acute hypoxemic respiratory failure The patient was initially admitted to the hospital from his nursing facility in the setting of acute respiratory failure over concerns for aspiration pneumonia. The patient has improved clinically over the last 24 hours with supportive care, including supplemental oxygen and IV antimicrobial therapy. In addition, the patient is being maintained on scheduled bronchodilators, which will be continued without change. Recommend continuing antibiotics as ordered. The patient is currently maintaining appropriate oxygen saturations on room air. Speech therapy is scheduled to evaluate the patient today. The patient will be maintained n.p.o. status. Baseline bolus tube feeding can be initiated today from my perspective. 2. History of CVA with residual right-sided hemiplegia/hypertension/diabetes mellitus/history of alcohol and tobacco dependency/dysphagia Complicates care, management, recovery and prognosis. Continue home medications as indicated. Speech therapy to evaluate the patient. Maintain n.p.o. status for now. This note was generated with [employer] dictation software. It may contain incorrect words, spelling, and punctuation that were not noted in checking the note before signing. Subjective Subjective The patient was seen and examined at the bedside this morning. Events from the last 24 hours have been reviewed. The patient is currently afebrile, hemodynamically stable and maintaining appropriate oxygen saturations on room air. The patient was admitted yesterday after presenting from his senior living facility with shortness of breath. There is concern for potential aspiration event leading to his clinical decompensation. The patient has improved significantly from a respiratory perspective over the last 24 hours. White count this morning was noted to be 11,000 with a hemoglobin of 10.5 g/dL. Platelet count is normal. The patient is essentially nonverbal this morning. Objective Data Objective Data The patient's most recent lab work, culture data and imaging studies have all been personally reviewed. Stool for occult blood was noted to be positive on May 04. Strep and urine Legionella antigens were negative. Blood and urine cultures are pending. Vital Signs: Vital Signs Temp Pulse Resp BP Pulse Ox O2 Del Method O2 Flow Rate 100.4 F H 109 H 34 H 119/75 94 Nasal Cannula 2 05/06/23 06:00 05/06/23 07:00 05/06/23 07:00 05/06/23 07:00 05/06/23 07:00 05/06/23 07:00 05/06/23 07:00 Oxygen Flow Rate (L/min) 2 Oxygen Delivery Method Nasal Cannula Weight: 205 lb 0.478 oz Body Mass Index (BMI) 27.8 Intake & Output: Intake and Output for Last 24 Hours 05/04/23 05/05/23 05/06/23 23:59 23:59 23:59 Intake Total 4634.17 / 4634.17 655.58 / 655.58 Output Total 800 / 1150 850 / 850 Balance 3834.17 / 3484.17 -194.42 / -194.42 Lab / Micro Data Attestation: I reviewed the patient's lab results. 05/06/23 01:05 05/06/23 01:05 Labs: Laboratory Results - last 24 hr 05/05/23 12:02: WBC 15.2 H, RBC 4.74, Hgb 12.9 L, Hct 41.6, MCV 87.8, MCH 27.2, MCHC 31.0 L, RDW Std Deviation 39.8, RDW Coeff of [place] 12.4, Plt Count 219, MPV 12.7 H, Immature Gran % (Auto) 0.300, Neut % (Auto) 77.9 H, Lymph % (Auto) 13.0 L, [place] % (Auto) 8.2, Eos % (Auto) 0.1, Baso % (Auto) 0.5, Absolute Neuts (auto) 11.8 H, Absolute Lymphs (auto) 1.98, Nucleated RBC % 0, PT 14.2, INR 1.1, APTT 22.6 L, Sodium 143, Potassium 4.7, Chloride 106, Carbon Dioxide 32.0, Anion Gap 5, BUN 77 H, Creatinine 1.70 H, Estim Creat Clear Calc 47.37, Est GFR (MDRD) Af Amer 53 L, Est GFR (MDRD) Non-Af 44 L, BUN/Creatinine Ratio 45.3 H, Glucose 370 H, Lactic Acid 3.0 H*, Calcium 10.1, Total Bilirubin 0.40, AST 9 L, ALT 26, Alkaline Phosphatase 96, Troponin I High Sens 7, Total Protein 7.0, Albumin 3.0 L, Globulin 4.0, Albumin/Globulin Ratio 0.8 L, Acetone Level NEGATIVE 05/05/23 12:49: Ethyl Alcohol < 3.0 05/05/23 12:55: Urine Color Yellow, Urine Clarity Cloudy, Urine pH 6.5, Ur Specific [place] 1.015, Urine Protein 100 H, Urine Glucose (UA) 50 H, Urine Ketones 5 H, Urine Occult Blood 250 H, Urine Nitrite Negative, Urine Bilirubin Negative, Urine Urobilinogen 1 H, Ur Leukocyte Esterase 25 H, Urine RBC 10-25 SEEN, Urine WBC 0-5 SEEN, Ur Squamous Epith Cells 0 SEEN, Amorphous Sediment 4+, Urine Bacteria 0 SEEN, Urine Mucus 0 SEEN 05/05/23 13:58: POC Glucose 351 H 05/05/23 15:00: S.aureus Protein A PCR Cancelled 05/05/23 15:00: S.aureus Protein A PCR POSITIVE H, MRSA (PCR) Cancelled 05/05/23 15:00: MRSA (PCR) Negative 05/05/23 16:30: Lactic Acid 4.2 H* 05/05/23 17:50: WBC 13.4 H, RBC 3.83 L, Hgb 10.2 L, Hct 34.3 L, MCV 89.6, MCH 26.6 L, MCHC 29.7 L, RDW Std Deviation 39.8, RDW Coeff of [place] 12.4, Plt Count 155, MPV 12.5 H 05/05/23 22:07: POC Glucose 354 H 05/06/23 01:05: WBC 11.2 H, RBC 3.90 L, Hgb 10.5 L, Hct 34.8 L, MCV 89.2, MCH 26.9 L, MCHC 30.2 L, RDW Std Deviation 40.5, RDW Coeff of [place] 12.5, Plt Count 171, MPV 12.7 H, Immature Gran % (Auto) 0.300, Neut % (Auto) 71.9 H, Lymph % (Auto) 22.3, [place] % (Auto) 4.9, Eos % (Auto) 0.2, Baso % (Auto) 0.4, Absolute Neuts (auto) 8.1 H, Absolute Lymphs (auto) 2.50, Nucleated RBC % 0, Sodium 145, Potassium 3.9, Chloride 115 H, Carbon Dioxide 25.0, Anion Gap 5, BUN 70 H, Creatinine 1.48 H, Estim Creat Clear Calc 56.07, Est GFR (MDRD) Af Amer 62, Est GFR (MDRD) Non-Af 51 L, BUN/Creatinine Ratio 47.3 H, Glucose 400 H, Lactic Acid 3.3 H*, Calcium 9.1 Micro: Microbiology 05/05/23 12:55 Urine Catheter - [place] Legionella Antigen - Final 05/05/23 12:55 Urine Catheter - [place] Streptococcus pneumoniae Antigen (M - Final 05/05/23 12:20 Mucosa - Nose SARS-CoV-2, Influenza & RSV (PCR) - Final 05/05/23 12:25 Stool Stool Occult Blood (JOANA) - Final Occult Blood Positive ABG Data ABG results: ABG 05/05/23 12:07 Specimen Type JER Sample Site Not entered O2 % 15.0 VBG pH 7.44 H VBG pO2 22 L VBG HCO3 33 H VBG Total CO2 35 H VBG O2 Sat (Calc) 39 L VBG Base Excess 9 H POC Mix VBG pCO2 Pt Tmp 48.7 O2 Delivery Device HFNC Radiography Diagnostic Testing: Radiology Impression Brain CT 05/05/23 12:04 IMPRESSION: No acute intracranial abnormality. Chronic microvascular changes. Electronically Signed: Cricket Lancaster MD at 13:36 EST Reading Location ID and State: [facility] / [place] Tel , Service support , Chest X-Ray 05/05/23 12:20 IMPRESSION: Right lower lobe pneumonia. Question small left lower lobe infiltrate. Electronically Signed: Cricket Lancaster MD at 12:51 EST , Chest CT 05/06/23 00:04 IMPRESSION: Dense right lower lobe consolidation with some additional patchy airspace disease in the right upper and left lower lobes. Small right pleural effusion. Findings consistent with pneumonia. Electronically Signed: Tez Ibarra MD at 0:58 EST , Physical Exam Const alert and no apparent distress General Appearance: cooperative HEENT normocephalic and head/scalp atraumatic Eyes PERRL, EOMs intact bilaterally and conjunctivae normal Neck supple General: trachea midline Chest inspection of chest normal Resp Effort and Inspection: tachypneic Auscultation: diminished lung sounds Cardio S1 normal heart sound and S2 normal heart sound Rate: tachycardic GI normal to inspection, nondistended, normoactive bowel sounds Inspection: GI tube present Extremity no clubbing, cyanosis or edema Skin no rashes or lesions noted Neuro Neuro Narrative: Baseline neurological status. Psych Mood & Affect: flat affect Charges/Coding Visit Charges Inpatient E&M: 40351 Subs Hosp L3
[2023-05-06] MEDS: Atorvastatin Calcium 80 MG Tablet GT (08:24)
[2023-05-06] MEDS: Thiamine Hydrochloride 100 MG Tablet GT (08:24)
[2023-05-06] MEDS: Multivitamins,Ther W-Minerals Tablet 1 TABLET GT (08:24)
[2023-05-06] MEDS: Cholecalciferol (VIT D3) 25 MCG TABLET (1,000 UNITS) 50 MCG GT (08:24)
[2023-05-06] MEDS: Cefepime HCl 1 GM in 0.9% Normal Saline (50mL MB+) 50 ML IV ×2 (10:04→22:03)
[2023-05-06 10:19] LABS: Hematocrit 30.2 % (40-54); Hemoglobin 9.5 g/dL (13.0-16.5); Mean Corp Hgb Conc 31.5 g/dL (32-36); Mean Corpuscular Hgb 27.7 pg (27.0-32.0); Mean Platelet Vol. 12.4 fl (6.2-12.0); Platelet Count 159 K/mm3 (150-450); RBC Distribution Width CV 12.6 % (11.6-14.6); RBC Distribution Width SD 40.7 fl (35.1-43.9); Red Blood Count 3.43 M/mm3 (4.6-6.2); White Blood Count 11.6 K/mm3 (4.4-11.0)
[2023-05-06] MEDS: Insulin Lispro 100 UNIT/ML INSULN.PEN SC ×3 (11:05→19:47)
[2023-05-06 11:21] LABS: Bedside Glucose 244 mg/dL (74-106)
--- NOTE | 2023-05-06 12:06 | CASEMGMT ---
Addendum entered by Amira Cuba 05/06/23 12:19: Patients anna plan requires precert for skilled and intermediate. Amira Cuba, Discharge Planning Asst. Original Note: Discharge Planning Updates sent via [facility] to [facility]. Asked if precert is needed. Awaiting response. Amira Cuba, Discharge Planning Asst.
--- NOTE | 2023-05-06 13:04 | PN.HOSP_ITS ---
Reason for Visit Reason for Visit: Diagnoses Pneumonia, unspecified organism (05/05/23) Acute respiratory failure with hypoxia (05/05/23) Subjective Subjective No acute events overnight. Patient seen at bedside this morning. Patient was sleeping on arrival to the room. He denied any acute pain or discomfort. His cognition and speech are slowed but this is chronic for him after his stroke. He is currently breathing comfortably on room air with good oxygen saturations. No other acute concerns at this time. Objective Data Objective Data Vital Signs: Vital Signs Temp Pulse Resp BP Pulse Ox O2 Del Method O2 Flow Rate 99.7 F H 105 H 20 H 110/68 99 Room Air 2 05/06/23 12:00 05/06/23 12:21 05/06/23 12:21 05/06/23 12:00 05/06/23 12:00 05/06/23 12:00 05/06/23 07:00 Oxygen Flow Rate (L/min) 2 Oxygen Delivery Method Room Air Weight: 93 kg Body Mass Index (BMI) 27.8 Intake & Output: Intake and Output for Last 24 Hours 05/04/23 05/05/23 05/06/23 23:59 23:59 23:59 Intake Total 4634.17 / 4634.17 1497.16 / 1497.16 Output Total 800 / 1150 1250 / 1250 Balance 3834.17 / 3484.17 247.16 / 247.16 Lab / Micro Data 05/06/23 10:10 05/06/23 01:05 Labs: Laboratory Results - last 24 hr 05/05/23 12:49: Ethyl Alcohol < 3.0 05/05/23 12:55: Urine Color Yellow, Urine Clarity Cloudy, Urine pH 6.5, Ur Specific [place] 1.015, Urine Protein 100 H, Urine Glucose (UA) 50 H, Urine Ketones 5 H, Urine Occult Blood 250 H, Urine Nitrite Negative, Urine Bilirubin Negative, Urine Urobilinogen 1 H, Ur Leukocyte Esterase 25 H, Urine RBC 10-25 SEEN, Urine WBC 0-5 SEEN, Ur Squamous Epith Cells 0 SEEN, Amorphous Sediment 4+, Urine Bacteria 0 SEEN, Urine Mucus 0 SEEN 05/05/23 13:58: POC Glucose 351 H 05/05/23 15:00: S.aureus Protein A PCR Cancelled 05/05/23 15:00: S.aureus Protein A PCR POSITIVE H, MRSA (PCR) Cancelled 05/05/23 15:00: MRSA (PCR) Negative 05/05/23 16:30: Lactic Acid 4.2 H* 05/05/23 17:50: WBC 13.4 H, RBC 3.83 L, Hgb 10.2 L, Hct 34.3 L, MCV 89.6, MCH 26.6 L, MCHC 29.7 L, RDW Std Deviation 39.8, RDW Coeff of Warren 12.4, Plt Count 155, MPV 12.5 H 05/05/23 22:07: POC Glucose 354 H 05/06/23 01:05: WBC 11.2 H, RBC 3.90 L, Hgb 10.5 L, Hct 34.8 L, MCV 89.2, MCH 26.9 L, MCHC 30.2 L, RDW Std Deviation 40.5, RDW Coeff of Warren 12.5, Plt Count 171, MPV 12.7 H, Immature Gran % (Auto) 0.300, Neut % (Auto) 71.9 H, Lymph % (Auto) 22.3, [place] % (Auto) 4.9, Eos % (Auto) 0.2, Baso % (Auto) 0.4, Absolute Neuts (auto) 8.1 H, Absolute Lymphs (auto) 2.50, Nucleated RBC % 0, Sodium 145, Potassium 3.9, Chloride 115 H, Carbon Dioxide 25.0, Anion Gap 5, BUN 70 H, Creatinine 1.48 H, Estim Creat Clear Calc 56.07, Est GFR (MDRD) Af Amer 62, Est GFR (MDRD) Non-Af 51 L, BUN/Creatinine Ratio 47.3 H, Glucose 400 H, Lactic Acid 3.3 H*, Calcium 9.1 05/06/23 10:10: WBC 11.6 H, RBC 3.43 L, Hgb 9.5 L, Hct 30.2 L, MCV 88.0, MCH 27.7, MCHC 31.5 L, RDW Std Deviation 40.7, RDW Coeff of Warren 12.6, Plt Count 159, MPV 12.4 H 05/06/23 11:03: POC Glucose 244 H Micro: Microbiology 05/05/23 12:55 Urine Catheter - Hubbard Legionella Antigen - Final 05/05/23 12:55 Urine Catheter - Hubbard Streptococcus pneumoniae Antigen (M - Final 05/05/23 12:20 Mucosa - Nose SARS-CoV-2, Influenza & RSV (PCR) - Final 05/05/23 12:25 Stool Stool Occult Blood (JOANA) - Final Occult Blood Positive Radiography Diagnostic Testing: Radiology Impression Brain CT 05/05/23 12:04 IMPRESSION: No acute intracranial abnormality. Chronic microvascular changes. Electronically Signed: Cricket Lancaster MD at 13:36 EST , Chest CT 05/06/23 00:04 IMPRESSION: Dense right lower lobe consolidation with some additional patchy airspace disease in the right upper and left lower lobes. Small right pleural effusion. Findings consistent with pneumonia. Electronically Signed: Tez Ibarra MD at 0:58 EST , Physical Exam Const alert, no apparent distress and average body habitus Constitutional Narrative: Elderly male, chronically ill-appearing, alert and answering questions with short responses, cognition and speech delayed, otherwise comfortably in bed and in no acute distress. General Appearance: cooperative and comfortable HEENT normocephalic, head/scalp atraumatic, hearing grossly normal bilaterally, nasal mucous membranes and turbinates normal and moist oral mucous membranes Eyes PERRL, EOMs intact bilaterally and conjunctivae normal Neck no lymphadenopathy and supple Lymph Lymphatic: no lymphadenopathy noted Chest inspection of chest normal Resp normal respiratory effort and no use of accessory muscles Resp Narrative: Breathing comfortably on room air with good oxygen saturations. Mildly decrease d breath sounds bilaterally, worse in right base. No wheezing or crackles noted. Cardio no murmurs and peripheral pulses 2+ throughout Cardio Narrative: Tachycardic, regular rhythm. GI normal to inspection, nondistended, normoactive bowel sounds, soft to palpation, non-tender and non-distended Extremity normal to inspection and no pedal edema Skin no rashes or lesions noted Neuro Neuro Narrative: Residual right-sided hemiplegia noted. Sensorium / Orientation: alert Psych mental status grossly normal Assessment & Plan Assessment/Plan (1) Pneumonia: (2) Acute hypoxemic respiratory failure: (3) Sepsis without septic shock: PLAN: Plan Patient is a 63-year-old male who presented to [facility] ED on 06/01/2023 with shortness of breath. 1. Acute hypoxic respiratory failure and sepsis without shock secondary to community-acquired pneumonia with unknown organism, improving Chest x-ray on admit showed right lower lobe pneumonia, CT chest showed dense right lower lobe consolidation with some additional patchy airspace disease in right upper and left lower lobes consistent with pneumonia. Required up to 15 L of oxygen on admission. Met sepsis criteria on admission with leukocytosis, fever, tachycardia, tachypnea, YADI, altered mental status as noted below. Given 1 L normal saline on admission with maintenance fluids after this, with some improvement in tachycardia, blood pressure stable throughout. Did not give full 30 cc/kg for sepsis fluids given respiratory failure. Respiratory panel negative. Urine antigens negative. Unable to produce sputum culture. Blood cultures pending. ? Telephone Information Clerk following. Stable on room air on 05/05, okay for transfer out of the ICU. Continue IV vancomycin and cefepime for antibiotic coverage. Continue scheduled bronchodilators. Okay to start baseline bolus tube feeding on 05/05 per regional account executive. 2. Acute metabolic encephalopathy, improving ? Presumed secondary to respiratory failure and sepsis as noted above. CT head on admit with no acute findings. Mental status improving with treatment as above, continue to monitor. 3. Suspected YADI, improving ? Creatinine 1.70 on admit, baseline creatinine unknown. Creatinine improved to 1.48 on 05/05 after IV fluids. Adequate urine output. Monitor daily BMP and urine output. 4. Recent history of stroke with right-sided hemiplegia and dysphagia ? Had recent stroke in 12/2022. Has been residing at skilled nurse facility since then. Has PEG tube in place for tube feeds. Nutrition consulted, okay to resume tube feeds on 05/05 as noted above. Chronic medical conditions: ? Hypertension: Continue to hold home Coreg and losartan for now, restart when able. ? Type 2 diabetes mellitus: Continue home Lantus 16 units at night with sliding scale insulin with tube feeds, adjust as needed. ? Hyperlipidemia: Continue home statin. ? GERD: Continue home PPI. DVT prophylaxis: Lovenox CODE STATUS: Full code, unverified Expected disposition: Back to SNF, 2 to 3 days Total clinical time spent by myself addressing the patient's medical issues, reviewing all the data, and collaborating with patient's care team: 35 minutes. Charges/Coding Visit Charges Inpatient E&M: 82467 Subs Hosp L2
[2023-05-06] MEDS: Jevity 1.5 1,000 ML 30 ML GT (14:50)
--- NOTE | 2023-05-06 16:34 | CASEMGMT ---
Social Work SW met w/pt's parents in room in regard to plan. Pt has been at [facility] just since last Saturday. Pt had a [facility] in December, [facility]. Pt's parents are not happy with the care at [facility]. SW did provide a list to pt's [facility] w[facility] insurance, in pt's preferred geographic area, and with quality and resource use data. They would like referrals sent to [place], [facility] and [facility]. Referrals to be sent in the morning. Pt's mother states that they did have referrals sent to [place] and [facility] from the [place] but they did not take pt and she wasn't sure why. [facility], but it may have something to do with the type of Medicaid pt has, if has something called [facility] Medicaid they may not cover terminal worker care, and then they would need to apply for disability or wait until pt turns 65. THAI Piedra
[2023-05-06] MEDS: Acetaminophen 650 MG/20 ML UDC GT (16:43)
--- NOTE | 2023-05-06 18:34 | CON.PCM.GI_ITS ---
HPI Consult Data Date of Consult: 05/06/23 HPI Narrative Reason for Consultation: GI bleed HPI Narrative: DREA MORLEY, is a 63 M who presents via the ED on 05/05/2023 with a PMH as outlined with a complaint of shortness of breath. He was brought from his senior care facility. He was noted to be short of breath and somnolent in his SNF. Patient was alert but could not give much of a history. Vitals in the ED were BP of 94/60, SD of 102, RR of 25 and oxygen sats of 100% on 15L of high flow oxygen. CBC showed hemoglobin of 12.9 with WBC of 15.2 with platelets of 219. Chemistry shows sodium of 143 with potassium of 4.7 and crea tinine of 1.7. Lactic acid was 3 and calcium was 10.1. Urinalysis showed 3+ bacteria. CXR showed a right lower lobe pneumonia and brain CT showed no acute intracranial abnormality. He is being admitted to be managed for acute hypoxic respiratory failure due to community acquired pneumonia. I was asked to see him because of vomiting, aspiration pneumonia and esophageal dysphagia. Patient cannot give a history due to his previous history of CVA so most history is obtained from the chart. [facility] Medical History (Updated 05/06/23 @ 15:[address] 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 Nicotine dependence, other tobacco product, uncomplicated Other hereditary and idiopathic neuropathies Type 2 diabetes mellitus without complications Vitamin D deficiency, unspecified Home Medications ammonium lactate 12 % topical cream 1 applic topical BID PRN dry skin 05/05/23 [History Last Taken Unknown] aspirin 81 mg chewable tablet 1 tab feeding tube DAILY CARDIOVASCULAR 05/05/23 [History Last Taken Unknown] atorvastatin 80 mg tablet 80 mg feeding tube DAILY CHOLESTEROL 05/05/23 [History Last Taken Unknown] carvedilol 25 mg tablet 25 mg feeding tube BID HIGH BLOOD PRESSURE 05/05/23 [History Last Taken Unknown] cholecalciferol (vitamin D3) 50 mcg (2,000 unit) capsule 50 mcg feeding tube DAILY VIT D DEFICIENCY 05/05/23 [History Last Taken Unknown] insulin glargine 100 unit/mL subcutaneous solution 16 unit subcut QPM DIABETES 05/05/23 [History Last Taken Unknown] losartan 50 mg tablet 50 mg feeding tube DAILY HIGH BLOOD PRESSURE 05/05/23 [History Last Taken Unknown] multivitamin with iron-mineral 1 tab feeding tube DAILY VITAMIN 05/05/23 [History Last Taken Unknown] thiamine HCl (vitamin B1) 100 mg tablet 100 mg feeding tube DAILY VITAMIN B DIFICIENCY 05/05/23 [History Last Taken Unknown] Allergy/AdvReac Type Severity Reaction Status Date / Time No Known Allergies Allergy Verified 05/05/23 11:58 Social History Smoking Status: Former smoker ROS Review of Systems ROS Unobtainable: due to encephalopathy Physical Exam Const alert, no apparent distress and average body habitus Constitutional Narrative: Elderly male, chronically ill-appearing, more awake and alert appearing today, answers questions with short appropriate responses, cognition and speech remain delayed, resting comfortably in bed and in no acute distress. General Appearance: cooperative and comfortable HEENT normocephalic, head/scalp atraumatic, hearing grossly normal bilaterally and nasal mucous membranes and turbinates normal Eyes PERRL, EOMs intact bilaterally and conjunctivae normal Chest inspection of chest normal Resp normal respiratory effort and no use of accessory muscles Resp Narrative: Breathing comfortably on room air with good oxygen saturations. Mildly decreased breath sounds bilaterally, worse in right base. No wheezing or crackles noted. Cardio regular rate, regular rhythm, no murmurs and peripheral pulses 2+ throughout GI normal to inspection, nondistended, normoactive bowel sounds, soft to palpation, non-tender and non-distended Extremity normal to inspection and no pedal edema Skin no rashes or lesions noted Neuro Neuro Narrative: Residual right-sided hemiplegia noted. Sensorium / Orientation: alert Psych mental status grossly normal Lab / Micro Data 05/07/23 01:33 05/07/23 01:33 Labs: Laboratory Results - last 24 hr 05/06/23 16:42: POC Glucose 249 H 05/06/23 19:46: POC Glucose 269 H 05/07/23 00:26: POC Glucose 214 H 05/07/23 01:33: WBC 8.6, RBC 3.21 L, Hgb 8.9 L, Hct 28.2 L, MCV 87.9, MCH 27.7, MCHC 31.6 L, RDW Std Deviation 40.7, RDW Coeff of Warren 12.7, Plt Count 150, MPV 12.3 H, Sodium 150 H, Potassium 3.7, Chloride 124 H, Carbon Dioxide 24.0, Anion Gap 2 L, BUN 47 H, Creatinine 1.07, Estim Creat Clear Calc 77.56, Est GFR (MDRD) Af Amer 90, Est GFR (MDRD) Non-Af 74, BUN/Creatinine Ratio 43.9 H, Glucose 235 H , Hemoglobin A1c 7.4 H, Calcium 9.2, Vancomycin Trough 12.2 05/07/23 03:57: POC Glucose 219 H 05/07/23 09:26: POC Glucose 234 H 05/07/23 13:37: POC Glucose 168 H Micro: Microbiology 05/05/23 12:02 Blood Culture (Wb) - Anticubital Left Blood Culture - Prel iminary No growth in 48 hours. 05/05/23 12:00 Blood Culture (Wb) - Anticubital Right Blood Culture - Preliminary No growth in 48 hours. 05/05/23 12:55 Urine, Catheterized Urine Culture - Final Culture exhibits no growth. Assessment & Plan Assessment/Plan (1) Acute hypoxemic respiratory failure: (2) Pneumonia: PLAN: Plan # Dysphagia with nausea vomiting and dysphagia * Differential diagnosis does include esophageal dysphagia secondary to previous CVA. He likely has oropharyngeal dysphagia also. He did have some hematemesis that is possibly secondary to tube feedings, not through the esophagus particularly if he is not at a 90 degree angle. Recommendations to evaluate his upper GI tract. His bowel return was explained alternatives, risk, benefits include nondistended bleeding, infection, sepsis, perforation, need for bankruptcy judge and . He will have an ASA of 3. * #Acute hypoxic respiratory failure due to community acquired pneumonia * admitted with a complaint of shortness of breath. * CXR showed right lower lobe pneumonia * Currently being followed by pulmonary/ intensive care * #Lactic acidosis:lactic acid is 3. Likely due to hypoxia. Should resolve with hydration and as respiratory status improves #History of stroke: has right sided hemiplegia. Will monitor. On aspirin, plavix and carvedilol. Hold carvedilol due to hypotension #Hypertension: On losartan and carvedilol. Will hold these due to hypotension. #Type 2 diabetes mellitus: On Lantus 16 units twice daily. Insulin sliding scale. Accu-Cheks ACHS. #DVT prophylaxis; lovenox Code status: full code- unverified. Patient unable to communicate, but per ED doctor he spoke to patient's mother who wanted him to be full code. Charges/Coding Visit Charges Inpatient E&M: 94661 Init Hosp L3
[2023-05-06 18:49] LABS: Bedside Glucose 249 mg/dL (74-106)
[2023-05-06] MEDS: Insulin Glargine-YFGN 100 UNIT/ML Pen 16 UNIT SC (21:59)
[2023-05-06 22:58] LABS: Bedside Glucose 269 mg/dL (74-106)
[2023-05-07] VITALS (9 sets, daily range): BP systolic 99–154; BP diastolic 62–83; PULSE 85–101; RESP 14–20; TEMP 36.3–37.2; O2SAT 91–100; BMI 27.8; BMI 22.6
[2023-05-07] MEDS: Insulin Lispro 100 UNIT/ML INSULN.PEN SC ×5 (00:31→21:38)
[2023-05-07] MEDS: 0.9% Saline Lock 10 ML Syringe IV (00:31)
[2023-05-07 01:00] LABS: Bedside Glucose 214 mg/dL (74-106)
[2023-05-07 01:44] LABS: Hematocrit 28.2 % (40-54); Hemoglobin 8.9 g/dL (13.0-16.5); Mean Corp Hgb Conc 31.6 g/dL (32-36); Mean Corpuscular Hgb 27.7 pg (27.0-32.0); Mean Corpuscular Volume 87.9 fL (80-94); Mean Platelet Vol. 12.3 fl (6.2-12.0); Platelet Count 150 K/mm3 (150-450); RBC Distribution Width CV 12.7 % (11.6-14.6); RBC Distribution Width SD 40.7 fl (35.1-43.9); Red Blood Count 3.21 M/mm3 (4.6-6.2); White Blood Count 8.6 K/mm3 (4.4-11.0)
[2023-05-07 01:58] LABS: Anion Gap 2 (5-15); BUN 47 mg/dL (7-18); BUN/Creat Ratio 43.9 RATIO (10-20); Calcium,Total 9.2 mg/dL (8.5-10.1); Chloride 124 mmol/L (98-107); Creatinine, Serum 1.07 mg/dL (0.70-1.30); EST Glomerular Filtration Rate 74 mL/min (>60); Est Glom Filt Rate - Afr Amer 90 mL/min (>60); Estimated Creatinine Clearance 77.56 ml/min; Glucose 235 mg/dL (74-106); Potassium 3.7 mmol/L (3.5-5.1); Sodium Level 150 mmol/L (136-145)
[2023-05-07 02:00] LABS: Vancomycin, Trough Level 12.2 ug/mL (5.0-15.0)
--- NOTE | 2023-05-07 02:16 | PCM.RX.CS ---
Consult Antibiotic Management Pharmacy has been consulted to manage selected antibiotic: Vancomycin Type of Intervention Type of Consult: Follow-up Suspected Infection Suspected Infection: Pneumonia Labs Labs: Sodium 150 mmol/L (136-145) H 05/07/23 01:33 Potassium 3.7 mmol/L (3.5-5.1) 05/07/23 01:33 Chloride 124 mmol/L (98-107) H 05/07/23 01:33 Carbon Dioxide 24.0 mmol/L (21.0-32.0) 05/07/23 01:33 Anion Gap 2 (5-15) L 05/07/23 01:33 BUN 47 mg/dL (7-18) H 05/07/23 01:33 Creatinine 1.07 mg/dL (0.70-1.30) 05/07/23 01:33 Est GFR (MDRD) Af Amer 90 mL/min (>60) 05/07/23 01:33 Est GFR (MDRD) Non-Af 74 mL/min (>60) 05/07/23 01:33 BUN/Creatinine Ratio 43.9 RATIO (10-20) H 05/07/23 01:33 Glucose 235 mg/dL (74-106) H 05/07/23 01:33 Vancomycin Trough 12.2 ug/mL (5.0-15.0) 05/07/23 01:33 Microbiology Microbiology: Microbiology 05/05/23 12:55 Urine Catheter - Hubbard Legionella Antigen - Final 05/05/23 12:55 Urine Catheter - Hubbard Streptococcus pneumoniae Antigen (M - Final 05/05/23 12:20 Mucosa - Nose SARS-CoV-2, Influenza & RSV (PCR) - Final 05/05/23 12:25 Stool Stool Occult Blood (JOANA) - Final Occult Blood Positive Dosing Weight Weight used for dosin kg Estimated Creatinine Clearance Estimated Creatinine Clearance: 78 Goal Trough Goal Trough: 15-20 mcg/mL Pharmacy Plan for Drug Dosing Pharmacy Plan for Drug Dosing: Vancomycin trough level of 12.2, drawn 12 hours post-dose, was below the target range of 15-20. Consistent with improvement in renal function (SCr from 1.70 to 1.07). Will increase dose to 750mg q12h, and will draw another trough level prior to fourth dose of the new regimen. Pharmacy Service will continue to monitor and adjust dosing as required. Follow-Up Labs Follow-Up Labs: Trough: Vancomycin Date/Time Labs Ordered Labs to be done on [date and time ordered]: 05/08/23 @1400
[2023-05-07] MEDS: Vancomycin HCl 750 MG in 0.9% Normal Saline (250mL Bag) 250 ML 250 MG IV ×2 (02:19→15:18)
[2023-05-07 04:28] LABS: Bedside Glucose 219 mg/dL (74-106)
[2023-05-07] MEDS: guaiFENesin 10 ML UDC (200MG/10ML) GT ×2 (05:20→21:29)
[2023-05-07] MEDS: Budesonide Respules 0.5 MG/2 ML AMPUL.NEB. INHALATION (06:57)
[2023-05-07] MEDS: Ipratropium/Albuterol Sulfate 3 ML AMPUL.NEB INHALATION ×2 (06:57→12:47)
[2023-05-07] MEDS: Pantoprazole Sodium 80 MG in 0.9% Normal Saline (100mL Bag) 80 ML 10 MG CONT INF ×2 (09:21→19:44)
--- NOTE | 2023-05-07 09:25 | CASEMGMT ---
Addendum entered by Amira Cuba 05/07/23 12:42: CC declined referral. SW updated. Amira Cuba, Discharge Planning Asst. Original Note: Discharge Planning Referral sent via [facility] to [place], [facility], and [facility]. Amira Cuba, Discharge Planning Asst.
[2023-05-07 09:48] LABS: Hemoglobin A1c 7.4 % (3.8-5.6)
[2023-05-07] MEDS: Cefepime HCl 1 GM in 0.9% Normal Saline (50mL MB+) 50 ML IV ×2 (09:59→21:32)
[2023-05-07 10:02] LABS: Bedside Glucose 234 mg/dL (74-106)
--- NOTE | 2023-05-07 10:13 | PCM.PN.HOSP ---
Reason for Visit Reason for Visit: Diagnoses Sepsis, unspecified organism (05/05/23) Pneumonia, unspecified organism (05/05/23) Acute respiratory failure with hypoxia (05/05/23) Subjective Subjective No acute events overnight. Patient seen at bedside this morning. Patient appeared more awake and alert this morning than previous days. Was making appropriate eye contact and answering questions with short appropriate responses. Primary concern this morning was that his mouth felt dry and he was hoping to drink water if possible, however I noted to patient that he remains n.p.o. at this time given history of dysphagia in setting of previous stroke. He otherwise denies any acute pain or discomfort. No other acute concerns. Objective Data Objective Data Vital Signs: Vital Signs Temp Pulse Resp BP Pulse Ox O2 Del Method O2 Flow Rate 99.0 F 97 16 141/77 H 95 Room Air 2 05/07/23 09:23 05/07/23 09:23 05/07/23 09:23 05/07/23 09:23 05/07/23 09:23 05/07/23 09:23 05/06/23 07:02 Oxygen Flow Rate (L/min) 2 Oxygen Delivery Method Room Air Weight: 75.9 kg Body Mass Index (BMI) 22.6 Intake & Output: Intake and Output for Last 24 Hours 05/05/23 05/06/23 05/07/23 23:59 23:59 23:59 Intake Total 4634.17 / 4634.17 2049.66 / 2049.66 1033.00 / 1033.00 Output Total 800 / 1150 1650 / 1650 900 / 900 Balance 3834.17 / 3484.17 399.66 / 399.66 133.00 / 133.00 Lab / Micro Data 05/07/23 01:33 05/07/23 01:33 Labs: Laboratory Results - last 24 hr 05/06/23 10:10: WBC 11.6 H, RBC 3.43 L, Hgb 9.5 L, Hct 30.2 L, MCV 88.0, MCH 27.7, MCHC 31.5 L, RDW Std Deviation 40.7, RDW Coeff of Warren 12.6, Plt Count 159, MPV 12.4 H 05/06/23 11:03: POC Glucose 244 H 05/06/23 16:42: POC Glucose 249 H 05/06/23 19:46: POC Glucose 269 H 05/07/23 00:26: POC Glucose 214 H 05/07/23 01:33: WBC 8.6, RBC 3.21 L, Hgb 8.9 L, Hct 28.2 L, MCV 87.9, MCH 27.7, MCHC 31.6 L, RDW Std Deviation 40.7, RDW Coeff of Warren 12.7, Plt Count 150, MPV 12.3 H, Sodium 150 H, Potassium 3.7, Chloride 124 H, Carbon Dioxide 24.0, Anion Gap 2 L, BUN 47 H, Creatinine 1.07, Estim Creat Clear Calc 77.56, Est GFR (MDRD) Af Amer 90, Est GFR (MDRD) Non-Af 74, BUN/Creatinine Ratio 43.9 H, Glucose 235 H, Hemoglobin A1c 7.4 H, Calcium 9.2, Vancomycin Trough 12.2 05/07/23 03:57: POC Glucose 219 H 05/07/23 09:26: POC Glucose 234 H Micro: Microbiology 05/05/23 12:02 Blood Culture (Wb) - Anticubital Left Blood Culture - Preliminary No growth in 48 hours. 05/05/23 12:00 Blood Culture (Wb) - Anticubital Right Blood Culture - Preliminary No growth in 48 hours. 05/05/23 12:55 Urine, Catheterized Urine Culture - Final Culture exhibits no growth. 05/05/23 12:55 Urine Catheter - Hubbard Legionella Antigen - Final 05/05/23 12:55 Urine Catheter - Hubbard Streptococcus pneumoniae Antigen (M - Final 05/05/23 12:20 Mucosa - Nose SARS-CoV-2, Influenza & RSV (PCR) - Final 05/05/23 12:25 Stool Stool Occult Blood (JOANA) - Final Occult Blood Positive Physical Exam Const alert, no apparent distress and average body habitus Constitutional Narrative: Elderly male, chronically ill-appearing, more awake and alert appearing today, answers questions with short appropriate responses, cognition and speech remain delayed, resting comfortably in bed and in no acute distress. General Appearance: cooperative and comfortable HEENT normocephalic, head/scalp atraumatic, hearing grossly normal bilaterally and nasal mucous membranes and turbinates normal Eyes PERRL, EOMs intact bilaterally and conjunctivae normal Chest inspection of chest normal Resp normal respiratory effort and no use of accessory muscles Resp Narrative: Breathing comfortably on room air with good oxygen saturations. Mildly decreased breath sounds bilaterally, worse in right base. No wheezing or crackles noted. Cardio regular rate, regular rhythm, no murmurs and peripheral pulses 2+ throughout GI normal to inspection, nondistended, normoactive bowel sounds, soft to palpation, non-tender and non-distended Extremity normal to inspection and no pedal edema Skin no rashes or lesions noted Neuro Neuro Narrative: Residual right-sided hemiplegia noted. Sensorium / Orientation: alert Psych mental status grossly normal Assessment & Plan Assessment/Plan (1) Pneumonia: (2) Acute hypoxemic respiratory failure: (3) Sepsis without septic shock: PLAN: Plan Patient is a 63-year-old male who presented to [facility] ED on 06/01/2023 with shortness of breath. 1. Acute hypoxic respiratory failure and sepsis without shock secondary to community-acquired pneumonia with unknown organism, improving Chest x-ray on admit showed right lower lobe pneumonia, CT chest showed dense right lower lobe consolidation with some additional patchy airspace disease in right upper and left lower lobes consistent with pneumonia. Required up to 15 L of oxygen on admission. Met sepsis criteria on admission with leukocytosis, fever, tachycardia, tachypnea, YADI, altered mental status as noted below. Given 1 L normal saline on admission with maintenance fluids after this, with some improvement in tachycardia, blood pressure stable throughout. Did not give full 30 cc/kg for sepsis fluids given respiratory failure. Respiratory panel negative. Urine antigens negative. Unable to produce sputum culture. Blood cultures pending. ? Copy Chaser followed. Stable on room air on 05/05, transferred out of ICU. Continue IV vancomycin and cefepime for antibiotic coverage for now. Continue scheduled bronchodilators. Tube feeds restarted on 05/05 without issue. 2. Acute metabolic encephalopathy, resolved ? Presumed secondary to respiratory failure and sepsis as noted above. CT head on admit with no acute findings. Mental status improved to baseline on 05/06. 3. Suspected YADI, improving ? Creatinine 1.70 on admit, baseline creatinine unknown. Creatinine improving with IV fluids and restarting tube feeds, most recent creatinine 1.07 on 05/06 Adequate urine output. Monitor daily BMP and urine output. 4. Recent history of stroke with right-sided hemiplegia and dysphagia ? Had recent stroke in 12/2022. Has been residing at skilled nurse facility since then. Has PEG tube in place for tube feeds. Nutrition consulted, okay to resume tube feeds on 05/05 as noted above. Speech therapy following, planning for MBSS on 05/06 to further assess concerns for aspiration. 5. Hypernatremia ? Sodium 150 on 05/06, chloride 124. Presumed secondary to dehydration from n.p.o. status. Continue free water flushes of 175 mL every 4 hours with tube feeds for now, monitor daily sodium. Chronic medical conditions: ? Hypertension: Continue to hold home Coreg and losartan for now, restart when able. ? Type 2 diabetes mellitus: Continue home Lantus 16 units at night with sliding scale insulin with tube feeds, adjust as needed. ? Hyperlipidemia: Continue home statin. ? GERD: Continue home PPI. DVT prophylaxis: Lovenox CODE STATUS: Full code, unverified Expected disposition: Back to SNF, 2 to 3 days Total clinical time spent by myself addressing the patient's medical issues, reviewing all the data, and collaborating with patient's care team: 35 minutes. Charges/Coding Visit Charges Inpatient E&M: 25265 Subs Hosp L2
[2023-05-07 14:01] LABS: Bedside Glucose 168 mg/dL (74-106)
--- NOTE | 2023-05-07 15:52 | CASEMGMT ---
[facility] accepted patient. DAGO sent updates to [facility] and asked that they start pre-cert. DAGO also called patient's mom Amanda and let her know [facility] accepted, but the other 2 facilities declined. Amanda would like [facility]. DAGO told Amanda someone would notify her when patient is approved and ready for discharge. Plan: d/c to [facility] pending insurance approval. Ayaka Coley CIVIL DESIGN TECHNICIAN JASE
--- NOTE | 2023-05-07 16:00 | EGD_PTH ---
PATIENT: DREA MORLEY LOC: [facility] U#:[id number] AGE/SX: 63/M ROOM: [facility] RE05/05/[address]: Dr. Roverto Zavala DO : 1960 BED: 1 DIS: 05/10/2023 SPEC #: [id number] RECD: 05/08/23 12:10 STATUS: RIYA REQ #: [id number] ROSE MARY: 05/07/23 16:[address]: Ryan Larios DEPT: SURGICAL PATHOLOGY RECD BY: Silvia Jorge ENTERED: 05/08/23 12:10 SP TYPE: EGD BIOPSY OTHR DR: MD Dr. Roverto Perry DO Dr. Bruce Arthur, MD Dr. Derek Brown, DO Dr. Gautam Baskaran, MD Dr. Yordanos Habtegebriel, MD Dr. Hemant Dand, MD Dr. Kimber Foust, MD Dr. Lamia Aljundi, MD Dr. Nana Yaa Koram, MD Dr. Pavan Irukulla, MD Dr. Saad Farooqi, MD Dr. Vikram Anand, MD Dr. William Haden, MD Caitlin Stathopoulos, PORTABLE GRINDING MACHINE OPERATOR-C Tissues: Esophageal mucous membrane Procedures: Special Stain Group I Surgery Specimen Level IV GMS Stain (control) Comments: @ Ordering doctor for SUIV edited from to @ by LINA at 05/08/23 1517 @ Submitting doctor edited from to @ by LINA at 05/08/23 1518 HEADER OPERATION: EGD, biopsy PRE-OP DIAGNOSIS: GI bleed TISSUE SUBMITTED: Random esophagus MICROSCOPIC DIAGNOSIS Esophagus, random biopsy: Fragments of squamous mucosa with extensive ulceration, fibrinopurulent exudation, acute inflammation and reactive epithelial changes. Negative for malignancy. See comment. SJ:patricia 05/09/2023 COMMENT Special stain for fungi is positive for organisms (yeast and pseudohyphae) consistent with Lynnette species in the fibrinopurulent exudate; matched control is appropriate. Correlation with clinical, endoscopic findings and appropriate follow up are necessary. This case has been reviewed in consultation with Dr. Epps who concurs with the above diagnosis. MICROSCOPIC DESCRIPTION Slides are reviewed. GROSS DESCRIPTION Received in fixative is one container labeled with the patient's name and designated random esophagus. The specimen consists of multiple irregular fragments of light parker soft tissue that in aggregate measure 0.6 x 0.5 x 0.1 cm. The specimen is totally submitted in one cassette. / SJ:patricia 05/08/2023 TC:2 CPT: 64871, 41198
--- NOTE | 2023-05-07 18:08 | OP.EGD_ITS ---
Patient Name: Ata Copeland Procedure Date: 05/07/2023 5:45 PM Date of : 1960 Age: 63 Procedure: Upper GI endoscopy Indications: Coffee-ground emesis Providers: Ryan Larios DO Medicines: Monitored Anesthesia Care Patient Profile: This is a 63 year old male. Refer to note in patient chart for documentation of history and physical. Patient has symptoms of acute regurgitation and acute vomiting. Complications: No immediate complications. Procedure: Pre-Anesthesia Assessment: - Prior to the procedure, a History and Physical was performed, and patient medications and allergies were reviewed. The patient is competent. The risks and benefits of the procedure and the sedation options and risks were discussed with the patient. All questions were answered and informed consent was obtained. Patient identification and proposed procedure were verified by the physician in the pre-procedure area. Mental Status Examination: alert and oriented. Airway Examination: normal oropharyngeal airway and neck mobility. Respiratory Examination: clear to auscultation. CV Examination: normal. Prophylactic Antibiotics: The patient does not require prophylactic antibiotics. Prior Anticoagulants: The patient has taken no anticoagulant or antiplatelet agents. After reviewing the risks and benefits, the patient was deemed in satisfactory condition to undergo the procedure. The anesthesia plan was to use monitored anesthesia care (MAC). Immediately prior to administration of medications, the patient was re-assessed for adequacy to receive sedatives. The heart rate, respiratory rate, oxygen saturations, blood pressure, adequacy of pulmonary ventilation, and response to care were monitored throughout the procedure. The physical status of the patient was re-assessed after the procedure. After obtaining informed consent, the endoscope was passed under direct vision. Throughout the procedure, the patient's blood pressure, pulse, and oxygen saturations were monitored continuously. The gastroscope was introduced through the mouth, and advanced to the second part of duodenum. The upper GI endoscopy was accomplished without difficulty. The patient tolerated the procedure well. Scope In: 5:59:49 PM Scope Out: 6:02:38 PM Total Procedure Duration Time 0 hours 2 minutes 49 seconds Findings: LA Grade D (one or more mucosal breaks involving at least 75% of esophageal circumference) esophagitis with bleeding was found 34 to 39 cm from the incisors. Biopsies for histology were taken with a cold forceps for evaluation of celiac disease. Verification of patient identification for the specimen was done. Estimated blood loss was minimal. Coagulation for hemostasis using monopolar probe was successful. Estimated blood loss was minimal. There was evidence of an intact gastrostomy with a patent G-tube present in the gastric body. This was characterized by healthy appearing mucosa. No gross lesions were noted in the duodenal bulb. Impression: - LA Grade D erosive esophagitis with bleeding. Biopsied. Treated with a monopolar probe. - Intact gastrostomy with a patent G-tube present characterized by healthy appearing mucosa. - No gross lesions in the duodenal bulb. Recommendation: - Return patient to hospital phan for ongoing care. - Resume previous diet. - Continue present medications. - Await pathology results. - Repeat upper endoscopy in 3 months for surveillance. Procedure Code(s): --- Professional --- 80715, 59, Esophagogastroduodenoscopy, flexible, transoral; with control of bleeding, any method 47049, 51, Esophagogastroduodenoscopy, flexible, transoral; with biopsy, single or multiple CPT copyright 2021 [employer]. All rights reserved. The codes documented in this report are preliminary and upon underwater hunter trapper review may be revised to meet current compliance requirements. Ryan Larios DO 05/07/2023 6:08:29 PM This report has been signed electronically. Number of Addenda: 0 Note Initiated On: 05/07/2023 5:45 PM
--- NOTE | 2023-05-07 18:09 | OP.CCLET_ITS ---
05/07/2023 Jovan Jiménez Re : Upper GI endoscopy procedure for Ata Copeland Dear Lavell This procedure was performed on Sunday, May 07, 2023. My impressions and recommendations are as follows: Impressions : - LA Grade D erosive esophagitis with bleeding. Biopsied. Treated with a monopolar probe. - Intact gastrostomy with a patent G-tube present characterized by healthy appearing mucosa. - No gross lesions in the duodenal bulb. Recommendations : - Return patient to hospital phan for ongoing care. - Resume previous diet. - Continue present medications. - Await pathology results. - Repeat upper endoscopy in 3 months for surveillance. My findings are described in the full procedure note, which is enclosed. If I can be of further assistance, please feel free to contact me at . Sincerely, Ryan Larios, 05/07/2023 6:08:29 PM This report has been signed electronically.
[2023-05-07] MEDS: Jevity 1.5 1,000 ML 60 ML GT (18:59)
[2023-05-07] MEDS: 0.9% Normal Saline (1000mL) 1,000 ML 15 ML IV (19:00)
[2023-05-07 19:23] LABS: Bedside Glucose 161 mg/dL (74-106)
[2023-05-07] MEDS: Insulin Glargine-YFGN 100 UNIT/ML Pen 16 UNIT SC (21:39)
[2023-05-07 23:32] LABS: Bedside Glucose 215 mg/dL (74-106)
[2023-05-08 01:04] VITALS: BP 130/62; PULSE 98; RESP 18; TEMP 36.6; O2SAT 98
[2023-05-08] MEDS: Insulin Lispro 100 UNIT/ML INSULN.PEN SC ×6 (01:08→20:52)
[2023-05-08] MEDS: Vancomycin HCl 750 MG in 0.9% Normal Saline (250mL Bag) 250 ML 250 MG IV (01:52)
[2023-05-08 02:41] LABS: Bedside Glucose 238 mg/dL (74-106)
[2023-05-08 03:21] VITALS: BMI 22.5
[2023-05-08 04:19] VITALS: BP 143/76; PULSE 97; RESP 18; TEMP 36.9; O2SAT 99
[2023-05-08 05:06] LABS: Bedside Glucose 226 mg/dL (74-106)
[2023-05-08] MEDS: Pantoprazole Sodium 80 MG in 0.9% Normal Saline (100mL Bag) 80 ML 10 MG CONT INF ×2 (05:15→15:16)
[2023-05-08] MEDS: guaiFENesin 10 ML UDC (200MG/10ML) GT ×3 (05:23→20:46)
[2023-05-08] MEDS: Multivitamins,Ther W-Minerals Tablet 1 TABLET GT (08:32)
[2023-05-08] MEDS: Cholecalciferol (VIT D3) 25 MCG TABLET (1,000 UNITS) 50 MCG GT (08:45)
[2023-05-08] MEDS: Thiamine Hydrochloride 100 MG Tablet GT (08:45)
[2023-05-08] MEDS: Atorvastatin Calcium 80 MG Tablet GT (08:45)
[2023-05-08 08:51] LABS: Bedside Glucose 196 mg/dL (74-106)
--- NOTE | 2023-05-08 10:04 | ST.MBS ---
Modified Barium Swallow Patient Information Study Date: 05/08/23 Study Time: 09:30 Direct Billable Minutes: 83 Total Minutes procedure & reportin Diagnosis: PNA J18.9, Acute hypoxemic respiratory failure J96.0 Referring Physician: Roverto Zavala Reason for Referral: Objectively assess swallow function, assess risk for aspiration, and determine recommendations for least restrictive diet textures and compensatory strategies to improve safety of swallow. 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 The patient presented to [facility] ED on 05/05/2023 with shortness of breath from his SNF. CXR showed a right lower lobe pneumonia. He was admitted to be managed for acute hypoxic respiratory failure due to community acquired pneumonia. Of note, the patient has dysphagia s/p G-tube. At SNF, he has been on mechanical soft textures / mildly thick liquids with FFWP. BSE completed 05/06/23 recommending NPO with sips of water after oral care and plans for MBSS once cleared for oral intake by GI. EGD 05/07/23 showed esophagitis with bleeding that was treated, he was cleared to resume previous diet. Current Diet Ordered: NPO with sips of water via tsp Dentition: WNL and Natural Teeth Mental Status: Impaired (from CVA; however, able to follow commands without difficulty) Respiratory Status: Oxygenating on Room Air Penetration-Aspiration Scale Penetration-Aspiration Scale: OBJECTIVE ASSESSMENT OF SWALLOW FUNCTION (QUANTITATIVE ? PER TRIAL): PENETRATION / ASPIRATION SCALE (LINDER): 1 = does not enter airway 2 = enters airway/above vocal folds/ejected 3 = enters airway/above vocal folds/not ejected 4 = enters airway/contacts vocal folds/ejected 5 = enters airway/contacts vocal folds/not ejected 6 = enters airway/below vocal folds/ejected 7 = enters airway/below vocal folds/not ejected despite effort 8 = enters airway/below vocal folds/no effort VIDEOFLOROSCOPIC SCALE SCORE (LINDER): Grade I = aspiration of material that has penetrated into the laryngeal vestibule, intact cough reflex Grade II = aspiration < 10 % of the bolus, intact cough reflex Grade III = aspiration of < 10 % of the bolus, reduced cough reflex or aspiration of > 10 % of the bolus, intact cough reflex Grade IV = aspiration of > 10 % of the bolus, reduced cough reflex Penetration-Aspiration Scale Score Thin Liquid via teaspoon: Result: 1= does not enter airway Thin Liquid via teaspoon Trial 2: Result: 1= does not enter airway Thin Liquid via small single sip: cup: Result: 2= enter airway/above vocal folds/ejected [place] Thick Liquid via small single sip: cup: Result: 1= does not enter airway Pudding via teaspoon: Result: 1= does not enter airway Comment: Esophageal Screen - min retention in the mid esophagus with little to no improvement from thin liquid wash. 1/2 Cookie: Result: 1= does not enter airway Thin Liquid via sequential sips:straw: Result: 2= enter airway/above vocal folds/ejected Oral Phase Labial Seal: No Labial Escape Tongue Control During Bolus Hold: Posterior escape of greater than half of bolus Bolus Preparation/Mastication: Disorganized chewing/mashing with solid pieces of bolus unchewed Bolus Transport/Lingual Motion: Slowed tongue motion Oral Residue: Trace residue lining oral structures Pharyngeal Phase Initiation of Pharyngeal Swallow: Bolus head in pyriforms Soft Palate Elevation: Trace column of contrast/air between soft palate and pharyngeal wall Laryngeal Elevation: Comp. Superior move thyroid cart w/comp. apprx arytenoid cart-epig pet Anterior Hyoid Excursion: Partial anterior movement Epiglottic Movement: Complete inversion Laryngeal Vestibule Closure at Height of Swallow: Incomplete; narrow column of air/contrast in laryngeal vestibule Pharyngeal Stripping Wave: Present - complete Pharyngoesophageal Segment Opening: Complete distension and complete duration; no obstruction of flow Tongue Base Retraction: Trace column of contrast between tongue base & post. pharyngeal wall Pharyngeal Residue: Trace residue within or on pharyngeal structures Esophageal Phase Esophageal Clearance: Esophageal retention (minimal retention of pudding in the mid esophagus) Diagnosis/Impression Diagnosis: Mild-Moderate Oropharyngeal Dysphagia R13.12 Impression: The oral phase is primarily marked by... -Decreased bolus control with >1/2 of the bolus spilling posteriorly to the pyriforms prior to swallow onset observed with all trials. -Slowed tongue motion for A-P transport. -Trace oral residue after the swallow, which mostly cleared with independent initiation of a second swallow as needed.? -Disorganized mastication with pieces of the cookie left un-chewed.? ? The pharyngeal phase is primarily marked by... -Delayed swallow onset. -Trace laryngeal penetration with two trials of thin liquids that all reliably ejected from the laryngeal vestibule after the swallow. No aspiration observed. ? The esophageal phase is primarily marked by... -Minimal esophageal retention of pudding in mid esophagus. Thin liquid wash made little to no impact in clearing pudding contrast from the mid esophagus.? Recommendations Diet: Mechanical Soft Textures (Soft and Bite Size Textures - IDDSI Level 6) and Thin Liquids Comment: Frequent oral care Compensatory Strategies: Small Bites, Small Sips, Slow Rate, Alternate bites/solids and sips/liquids, Sitting upright and Remain sitting upright for 30 minutes after PO intake Supervision: 1:1 Close Supervision Recommend Repeat Modified Barium Swallow: TBD Need for Skilled Speech Therapy Services: Yes Comment: -Train the patient in use of strategies to decrease risk for aspiration. -Ongoing assessment of diet tolerance of recommended textures. -Train the patient oropharyngeal exercise program to improve bolus control, anterior hyoid excursion, and swallow onset (lingual resistance, Kerri, CTAR). Education Completed: 1. Described result of evaluation., 2. Pt understands evaluation & agrees with goals and treatment plan., 4. Family/caregivers understand evaluation & agree w/ goals & tx plan. (HOUSEKEEPER MANAGER called mother to educate her on results and recommendations of MBSS. Education well received.) and 7. Pt requires further education on strategies & risks. Status Active ST Patient: Active Contact Information [facility] Speech Therapy:: Julee Fonseca M.A. [facility]-HOUSEKEEPER MANAGER? Speech-Language Pathologist?? [facility] [address]?? [place] [address]?? [email or web address]?? [phone]??
[2023-05-08] MEDS: Cefepime HCl 1 GM in 0.9% Normal Saline (50mL MB+) 50 ML IV ×2 (10:09→20:41)
[2023-05-08 10:12] VITALS: BP 145/82; PULSE 91; RESP 14; TEMP 36.7; O2SAT 97
[2023-05-08 10:30] LABS: Hematocrit 31.8 % (40-54); Hemoglobin 9.5 g/dL (13.0-16.5); Mean Corp Hgb Conc 29.9 g/dL (32-36); Mean Corpuscular Volume 90.3 fL (80-94); Mean Platelet Vol. 12.9 fl (6.2-12.0); POSITIVE COUNT YES; RBC Distribution Width CV 12.7 % (11.6-14.6); RBC Distribution Width SD 41.8 fl (35.1-43.9); Red Blood Count 3.52 M/mm3 (4.6-6.2); White Blood Count 7.6 K/mm3 (4.4-11.0)
[2023-05-08 10:49] LABS: Scan Indicated on CBC? Y/N YES- FLAGS NOTED
[2023-05-08 10:59] LABS: Anion Gap 5 (5-15); BUN 19 mg/dL (7-18); BUN/Creat Ratio 24.7 RATIO (10-20); Calcium,Total 8.5 mg/dL (8.5-10.1); Chloride 119 mmol/L (98-107); Creatinine, Serum 0.77 mg/dL (0.70-1.30); EST Glomerular Filtration Rate 109 mL/min (>60); Est Glom Filt Rate - Afr Amer 132 mL/min (>60); Estimated Creatinine Clearance 104.58 ml/min; Glucose 219 mg/dL (74-106); Potassium 3.6 mmol/L (3.5-5.1); Sodium Level 143 mmol/L (136-145)
[2023-05-08 11:04] LABS: Platelet Count 133 K/mm3 (150-450)
[2023-05-08 12:23] LABS: Bedside Glucose 226 mg/dL (74-106)
[2023-05-08] MEDS: Jevity 1.5 1,000 ML 60 ML GT (12:24)
--- NOTE | 2023-05-08 13:22 | PCM.PN.HOSP ---
Reason for Visit Reason for Visit: Diagnoses Sepsis, unspecified organism (05/05/23) Pneumonia, unspecified organism (05/05/23) Acute respiratory failure with hypoxia (05/05/23) Subjective Subjective No acute events overnight. Patient seen at bedside this morning. Sitting up comfortably in bed, in no acute distress. Appears similar to yesterday, more awake and alert and appears to have a good level of energy this morning. Patient's primary concern is being able to eat and drink if able. Patient notably had an EGD done yesterday that showed no concerning findings, and plan was for MBSS today to determine patient's swallowing capabilities. Patient denied any other acute concerns this morning. Objective Data Objective Data Vital Signs: Vital Signs Temp Pulse Resp BP Pulse Ox O2 Del Method O2 Flow Rate 98.1 F 91 14 145/82 H 97 Room Air 4 05/08/23 10:12 05/08/23 10:12 05/08/23 10:12 05/08/23 10:12 05/08/23 10:12 05/08/23 10:12 05/07/23 18:20 Oxygen Flow Rate (L/min) 4 Oxygen Delivery Method Room Air Weight: 75.3 kg Body Mass Index (BMI) 22.5 Intake & Output: Intake and Output for Last 24 Hours 05/06/23 05/07/23 05/08/23 23:59 23:59 23:59 Intake Total 2049.66 / 2049.66 1848.00 / 1848.00 1570.17 / 1570.17 Output Total 1650 / 1650 1700 / 2550 2200 / 2200 Balance 399.66 / 399.66 148.00 / -702.00 -629.83 / -629.83 Lab / Micro Data 05/08/23 10:00 05/08/23 10:00 Labs: Laboratory Results - last 24 hr 05/07/23 13:37: POC Glucose 168 H 05/07/23 19:03: POC Glucose 161 H 05/07/23 21:27: POC Glucose 215 H 05/08/23 01:07: POC Glucose 238 H 05/08/23 04:26: POC Glucose 226 H 05/08/23 08:29: POC Glucose 196 H 05/08/23 10:00: WBC 7.6, RBC 3.52 L, Hgb 9.5 L, Hct 31.8 L, MCV 90.3, MCH 27.0, MCHC 29.9 L D, RDW Std Deviation 41.8, RDW Coeff of Warren 12.7, Plt Count 133 L, MPV 12.9 H, Sodium 143, Potassium 3.6, Chloride 119 H, Carbon Dioxide 19.0 L, Anion Gap 5, BUN 19 H, Creatinine 0.77, Estim Creat Clear Calc 104.58, Est GFR (MDRD) Af Amer 132, Est GFR (MDRD) Non-Af 109, BUN/Creatinine Ratio 24.7 H, Glucose 219 H, Calcium 8.5 05/08/23 11:58: POC Glucose 226 H Micro: Microbiology 05/05/23 12:02 Blood Culture (Wb) - Anticubital Left Blood Culture - Preliminary No growth in 48 hours. 05/05/23 12:00 Blood Culture (Wb) - Anticubital Right Blood Culture - Preliminary No growth in 48 hours. 05/05/23 12:55 Urine, Catheterized Urine Culture - Final Culture exhibits no growth. 05/05/23 12:55 Urine Catheter - Hubbard Legionella Antigen - Final 05/05/23 12:55 Urine Catheter - Hubbard Streptococcus pneumoniae Antigen (M - Final 05/05/23 12:20 Mucosa - Nose SARS-CoV-2, Influenza & RSV (PCR) - Final 05/05/23 12:25 Stool Stool Occult Blood (JOANA) - Final Occult Blood Positive Physical Exam Const alert, no apparent distress and average body habitus Constitutional Narrative: Elderly male, chronically ill-appearing, awake and alert appearing today, answers questions with short appropriate responses, cognition and speech remain delayed, resting comfortably in bed and in no acute distress. General Appearance: cooperative and comfortable HEENT normocephalic, head/scalp atraumatic, hearing grossly normal bilaterally and nasal mucous membranes and turbinates normal Eyes PERRL, EOMs intact bilaterally and conjunctivae normal Chest inspection of chest normal Resp normal respiratory effort and no use of accessory muscles Resp Narrative: Breathing comfortably on room air with good oxygen saturations. Mildly decreased breath sounds bilaterally, worse in right base. No wheezing or crackles noted. Cardio regular rate, regular rhythm, no murmurs and peripheral pulses 2+ throughout GI normal to inspection, nondistended, normoactive bowel sounds, soft to palpation, non-tender and non-distended Extremity normal to inspection and no pedal edema Skin no rashes or lesions noted Neuro Neuro Narrative: Residual right-sided hemiplegia noted. Sensorium / Orientation: alert Psych mental status grossly normal Assessment & Plan Assessment/Plan (1) Pneumonia: (2) Acute hypoxemic respiratory failure: (3) Sepsis without septic shock: PLAN: Plan Patient is a 63-year-old male who presented to [facility] ED on 06/01/2023 with shortness of breath. 1. Acute hypoxic respiratory failure and sepsis without shock secondary to community-acquired pneumonia with unknown organism, improving Chest x-ray on admit showed right lower lobe pneumonia, CT chest showed dense right lower lobe consolidation with some additional patchy airspace disease in right upper and left lower lobes consistent with pneumonia. Required up to 15 L of oxygen on admission. Met sepsis criteria on admission with leukocytosis, fever, tachycardia, tachypnea, YADI, altered mental status as noted below. Given 1 L normal saline on admission with maintenance fluids after this, with some improvement in tachycardia, blood pressure stable throughout. Did not give full 30 cc/kg for sepsis fluids given respiratory failure. Respiratory panel negative. Urine antigens negative. Unable to produce sputum culture. Blood cultures pending. ? Steam Setter followed. Stable on room air on 05/05, transferred out of ICU. Continue IV vancomycin and cefepime for antibiotic coverage for now. Continue scheduled bronchodilators. Tube feeds restarted on 05/05 without issue. 2. Acute metabolic encephalopathy, resolved ? Presumed secondary to respiratory failure and sepsis as noted above. CT head on admit with no acute findings. Mental status improved to baseline on 05/06. 3. Suspected YADI, resolved ? Creatinine 1.70 on admit, baseline creatinine unknown. Creatinine improving with IV fluids and restarting tube feeds, most recent creatinine 0.77 on 05/07 with adequate urine output. Monitor daily BMP and urine output. 4. Recent history of stroke with right-sided hemiplegia and dysphagia ? Had recent stroke in 12/2022. Has been residing at skilled nurse facility since then. Has PEG tube in place for tube feeds. ? Nutrition following, tube feeds restarted on 05/05 without issue. ? GI following, EGD on 05/06 showed erosive esophagitis with bleeding that was treated with heater probe, otherwise showed an intact gastrostomy with patent G-tube characterized by healthy-appearing mucosa. ? Speech therapy following. Patient completed MBSS on 05/07, okay for diet with mechanical soft textures and thin liquids with small bites, small sips, slow rate and one-to-one close supervision. ? PT/OT/case management following. Planning for SNF on discharge, [facility] opposed to returning to his previous SNF as he had a poor experience there. Medically ready for discharge on 05/07, awaiting placement. 5. Hypernatremia, improved ? Sodium 150 on 05/06, chloride 124. Presumed secondary to dehydration from n.p.o. status. Slightly increased to 200 ml of free water given with each tube feed bolus every 4 hours on 05/06, repeat sodium 143 on 05/07. Continue free water with tube feeds, will discuss with nutrition on amount of free water given as needed. Monitor daily sodium. 6. Acute on chronic anemia ? Hemoglobin 12.9 on admit, decreased to 10.2 after IV fluids. No previously known baseline. Hemoglobin slowly downtrended during admission with eliana at 8.9 on 05/06. GI following, s/p EGD on 05/06 that showed grade D erosive esophagitis with bleeding that was treated, no ulcers noted. Repeat hemoglobin 9.5 on 05/07. Continue p.o. PPI twice daily. Monitor hemoglobin daily. Chronic medical conditions: ? Hypertension: Continue to hold home Coreg and losartan for now, restart when able. ? Type 2 diabetes mellitus: Continue home Lantus 16 units at night with sliding scale insulin with tube feeds, adjust as needed. ? Hyperlipidemia: Continue home statin. ? GERD: Increased to p.o. PPI twice daily as noted above. DVT prophylaxis: Lovenox CODE STATUS: Full code, unverified Expected disposition: SNF, medically ready for discharge on 05/07, awaiting placement. Total clinical time spent by myself addressing the patient's medical issues, reviewing all the data, and collaborating with patient's care team: 35 minutes. Charges/Coding Visit Charges Inpatient E&M: 25837 Subs Hosp L2
[2023-05-08 14:41] LABS: Vancomycin, Trough Level 10.8 ug/mL (5.0-15.0)
--- NOTE | 2023-05-08 15:01 | PCM.RX.CS ---
Consult Antibiotic Management Pharmacy has been consulted to manage selected antibiotic: Vancomycin Type of Intervention Type of Consult: Follow-up Suspected Infection Suspected Infection: Pneumonia Prior Doses of Antibiotics Prior Doses of Antibiotics Received/Current Regimen: Presently on 750mg iv q12h. Labs Labs: Sodium 143 mmol/L (136-145) 05/08/23 10:00 Potassium 3.6 mmol/L (3.5-5.1) 05/08/23 10:00 Chloride 119 mmol/L (98-107) H 05/08/23 10:00 Carbon Dioxide 19.0 mmol/L (21.0-32.0) L 05/08/23 10:00 Anion Gap 5 (5-15) 05/08/23 10:00 BUN 19 mg/dL (7-18) H 05/08/23 10:00 Creatinine 0.77 mg/dL (0.70-1.30) 05/08/23 10:00 Est GFR (MDRD) Af Amer 132 mL/min (>60) 05/08/23 10:00 Est GFR (MDRD) Non-Af 109 mL/min (>60) 05/08/23 10:00 BUN/Creatinine Ratio 24.7 RATIO (10-20) H 05/08/23 10:00 Glucose 219 mg/dL (74-106) H 05/08/23 10:00 Vancomycin Trough 10.8 ug/mL (5.0-15.0) 05/08/23 14:00 Microbiology Microbiology: Microbiology 05/05/23 12:02 Blood Culture (Wb) - Anticubital Left Blood Culture - Preliminary No growth in 48 hours. 05/05/23 12:00 Blood Culture (Wb) - Anticubital Right Blood Culture - Preliminary No growth in 48 hours. 05/05/23 12:55 Urine, Catheterized Urine Culture - Final Culture exhibits no growth. 05/05/23 12:55 Urine Catheter - Hubbard Legionella Antigen - Final 05/05/23 12:55 Urine Catheter - Hubbard Streptococcus pneumoniae Antigen (M - Final 05/05/23 12:20 Mucosa - Nose SARS-CoV-2, Influenza & RSV (PCR) - Final 05/05/23 12:25 Stool Stool Occult Blood (JOANA) - Final Occult Blood Positive Dosing Weight Weight used for dosin kg Estimated Creatinine Clearance Estimated Creatinine Clearance: 105ml/min Goal Trough Goal Trough: 15-20 mcg/mL Pharmacy Plan for Drug Dosing Pharmacy Plan for Drug Dosing: Trough today 12hrs post dose 10.8 and below desired range of 15-20mcg/ml. Explained by renal CrCl improving from 78 to 105ml/min. Recommend a dose change to 1000mg iv q12h with repeat trough before fourth dose of new regimen. Pharmacy Service will continue to monitor and adjust dosing as required. Follow-Up Labs Follow-Up Labs: Trough: Vancomycin (3.8.24 @0230)
[2023-05-08 16:00] VITALS: BP 155/82; PULSE 92; RESP 14; TEMP 36.6; O2SAT 97
[2023-05-08] MEDS: Vancomycin IV 1,000 MG/200 ML BAG 200 MG IV (16:13)
[2023-05-08 16:28] LABS: Bedside Glucose 238 mg/dL (74-106)
--- NOTE | 2023-05-08 19:32 | PN.GI_ITS ---
Subjective Subjective Patient underwent an upper endoscopy yesterday. He tolerated procedure without any problems. There was no acute pathology seen in the patient's esophagus that would contribute to his ongoing Dysphagia except for severe erosive esophagitis.. Patient is scheduled to get follow-up swallowing evaluation today. Objective Data Objective Data Vital Signs: Vital Signs Temp Pulse Resp BP Pulse Ox O2 Del Method O2 Flow Rate 97.9 F 92 14 155/82 H 97 Room Air 4 05/08/23 16:00 05/08/23 16:00 05/08/23 16:00 05/08/23 16:00 05/08/23 16:00 05/08/23 16:00 05/07/23 18:20 Oxygen Flow Rate (L/min) 4 Oxygen Delivery Method Room Air Weight: 166 lb 0.129 oz Body Mass Index (BMI) 22.5 Intake & Output: Intake and Output for Last 24 Hours 05/06/23 05/07/23 05/08/23 23:59 23:59 23:59 Intake Total 2049.66 / 2049.66 1848.00 / 1848.00 2130.17 / 2130.17 Output Total 1650 / 1650 1700 / 2550 2850 / 2850 Balance 399.66 / 399.66 148.00 / -702.00 -719.83 / -719.83 Lab / Micro Data 05/08/23 10:00 05/08/23 10:00 Labs: Laboratory Results - last 24 hr 05/07/23 21:27: POC Glucose 215 H 05/08/23 01:07: POC Glucose 238 H 05/08/23 04:26: POC Glucose 226 H 05/08/23 08:29: POC Glucose 196 H 05/08/23 10:00: WBC 7.6, RBC 3.52 L, Hgb 9.5 L, Hct 31.8 L, MCV 90.3, MCH 27.0, MCHC 29.9 L D, RDW Std Deviation 41.8, RDW Coeff of [place] 12.7, Plt Count 133 L, MPV 12.9 H, Sodium 143, Potassium 3.6, Chloride 119 H, Carbon Dioxide 19.0 L, Anion Gap 5, BUN 19 H, Creatinine 0.77, Estim Creat Clear Calc 104.58, Est GFR (MDRD) Af Amer 132, Est GFR (MDRD) Non-Af 109, BUN/Creatinine Ratio 24.7 H, Glucose 219 H, Calcium 8.5 05/08/23 11:58: POC Glucose 226 H 05/08/23 14:00: Vancomycin Trough 10.8 05/08/23 16:04: POC Glucose 238 H Micro: Microbiology 05/05/23 12:02 Blood Culture (Wb) - Anticubital Left Blood Culture - Prelimi nary No growth in 48 hours. 05/05/23 12:00 Blood Culture (Wb) - Anticubital Right Blood Culture - Preliminary No growth in 48 hours. 05/05/23 12:55 Urine, Catheterized Urine Culture - Final Culture exhibits no growth. 05/05/23 12:55 Urine Catheter - Hubbard Legionella Antigen - Final 05/05/23 12:55 Urine Catheter - Hubbard Streptococcus pneumoniae Antigen (M - Final 05/05/23 12:20 Mucosa - Nose SARS-CoV-2, Influenza & RSV (PCR) - Final 05/05/23 12:25 Stool Stool Occult Blood (JOANA) - Final Occult Blood Positive Physical Exam Const alert, no apparent distress and average body habitus Constitutional Narrative: Elderly male, chronically ill-appearing, more awake and alert appearing today, answers questions with short appropriate responses, cognition and speech remain delayed, resting comfortably in bed and in no acute distress. General Appearance: cooperative and comfortable HEENT normocephalic, head/scalp atraumatic, hearing grossly normal bilaterally and nasal mucous membranes and turbinates normal Eyes PERRL, EOMs intact bilaterally and conjunctivae normal Chest inspection of chest normal Resp normal respiratory effort and no use of accessory muscles Resp Narrative: Breathing comfortably on room air with good oxygen saturations. Mildly decreased breath sounds bilaterally, worse in right base. No wheezing or crackles noted. Cardio regular rate, regular rhythm, no murmurs and peripheral pulses 2+ throughout GI normal to inspection, nondistended, normoactive bowel sounds, soft to palpation, non-tender and non-distended Extremity normal to inspection and no pedal edema Skin no rashes or lesions noted Neuro Neuro Narrative: Residual right-sided hemiplegia noted. Sensorium / Orientation: alert Psych mental status grossly normal Assessment & Plan Assessment/Plan (1) Acute hypoxemic respiratory failure: (2) Pneumonia: PLAN: Plan # Dysphagia with nausea vomiting and dysphagia * Differential diagnosis does include esophageal dysphagia secondary to previous CVA. He likely has oropharyngeal dysphagia also. He did have some hematemesis that is possibly secondary to tube feedings, not through the esophagus particularly if he is not at a 90 degree angle. Recommendations to evaluate his upper GI tract. His bowel return was explained alternatives, risk, benefits include nondistended bleeding, infection, sepsis, perforation, need for armed security officer and . He will have an ASA of 3. * #Acute hypoxic respiratory failure due to community acquired pneumonia * admitted with a complaint of shortness of breath. * CXR showed right lower lobe pneumonia * Currently being followed by pulmonary/ intensive care * #Lactic acidosis:lactic acid is 3. Likely due to hypoxia. Should resolve with hydration and as respiratory status improves #History of stroke: has right sided hemiplegia. Will monitor. On aspirin, plavix and carvedilol. Hold carvedilol due to hypotension #Hypertension: On losartan and carvedilol. Will hold these due to hypotension. #Type 2 diabetes mellitus: On Lantus 16 units twice daily. Insulin sliding scale. Accu-Cheks ACHS. #DVT prophylaxis; lovenox Code status: full code- unverified. Patient unable to communicate, but per ED doctor he spoke to patient's mother who wanted him to be full code. 05/08/23-EGD findings :LA Grade D (one or more mucosal breaks involving at least 75% of esophageal circumference) esophagitis with bleeding was found 34 to 39 cm from the incisors. Biopsies for histology were taken with a cold forceps for evaluation of celiac disease. Verification of patient identification for the specimen was done. Estimated blood loss was minimal. Coagulation for hemostasis using monopolar probe was successful. Estimated blood loss was minimal. There was evidence of an intact gastrostomy with a patent G-tube present in the gastric body. This was characterized by healthy appearing mucosa. No gross lesions were noted in the duodenal bulb. Impression: - LA Grade D erosive esophagitis with bleeding. Biopsied. Treated with a monopolar probe. - Intact gastrostomy with a patent G-tube present characterized by healthy appearing mucosa. - No gross lesions in the duodenal bulb. Recommendation: - Return patient to hospital phan for ongoing care. - Resume previous diet. - Continue present medications. - Await pathology results. - Repeat upper endoscopy in 3 months for surveillance -Protonix 40 mg twice daily via PEG Charges/Coding Visit Charges Inpatient E&M: 89835 Subs Hosp L3
[2023-05-08] MEDS: Insulin Glargine-YFGN 100 UNIT/ML Pen 16 UNIT SC (20:52)
[2023-05-08 20:56] VITALS: BP 141/70; PULSE 89; RESP 15; TEMP 36.8; O2SAT 95
[2023-05-08 21:55] LABS: Bedside Glucose 262 mg/dL (74-106)
[2023-05-09] MEDS: Pantoprazole Sodium 80 MG in 0.9% Normal Saline (100mL Bag) 80 ML 10 MG CONT INF (01:00)
[2023-05-09] MEDS: Insulin Lispro 100 UNIT/ML INSULN.PEN SC ×6 (01:00→21:32)
[2023-05-09 01:12] LABS: Bedside Glucose 233 mg/dL (74-106)
[2023-05-09 03:40] VITALS: BP 123/98; PULSE 83; RESP 15; TEMP 37.1; O2SAT 100
[2023-05-09] MEDS: Vancomycin IV 1,000 MG/200 ML BAG 200 MG IV ×2 (03:52→14:28)
[2023-05-09] MEDS: Jevity 1.5 1,000 ML 60 ML GT ×2 (04:52→21:17)
[2023-05-09] MEDS: guaiFENesin 10 ML UDC (200MG/10ML) GT ×3 (04:52→21:17)
[2023-05-09 06:00] VITALS: BMI 22.6
[2023-05-09 06:27] LABS: Hematocrit 41.3 % (40-54); Mean Corp Hgb Conc 31.5 g/dL (32-36); Mean Corpuscular Hgb 27.5 pg (27.0-32.0); Mean Corpuscular Volume 87.3 fL (80-94); Mean Platelet Vol. 12.2 fl (6.2-12.0); Platelet Count 100 K/mm3 (150-450); RBC Distribution Width CV 12.1 % (11.6-14.6); RBC Distribution Width SD 39.3 fl (35.1-43.9); Red Blood Count 4.73 M/mm3 (4.6-6.2); White Blood Count 4.1 K/mm3 (4.4-11.0)
[2023-05-09 06:30] LABS: Anion Gap 7 (5-15); BUN 14 mg/dL (7-18); BUN/Creat Ratio 18.4 RATIO (10-20); Calcium,Total 8.3 mg/dL (8.5-10.1); Chloride 109 mmol/L (98-107); Creatinine, Serum 0.76 mg/dL (0.70-1.30); EST Glomerular Filtration Rate 110 mL/min (>60); Est Glom Filt Rate - Afr Amer 133 mL/min (>60); Estimated Creatinine Clearance 106.24 ml/min; Glucose 260 mg/dL (74-106); Potassium 3.4 mmol/L (3.5-5.1); Sodium Level 140 mmol/L (136-145)
[2023-05-09 06:50] LABS: Bedside Glucose 242 mg/dL (74-106)
[2023-05-09 07:28] VITALS: O2SAT 95
[2023-05-09] MEDS: Multivitamins,Ther W-Minerals Tablet 1 TABLET GT (08:23)
[2023-05-09] MEDS: Atorvastatin Calcium 80 MG Tablet GT (08:23)
[2023-05-09] MEDS: Thiamine Hydrochloride 100 MG Tablet GT (08:24)
[2023-05-09] MEDS: Cholecalciferol (VIT D3) 25 MCG TABLET (1,000 UNITS) 50 MCG GT (08:24)
--- NOTE | 2023-05-09 08:37 | CASEMGMT ---
Discharge Planning Divine notified that patient will not be returning. Copy of patients passr records requested. Amira Cuba, Discharge Planning Asst.
[2023-05-09 08:42] LABS: Bedside Glucose 207 mg/dL (74-106)
[2023-05-09 08:59] LABS: POSITIVE MORPHOLOGY YES
[2023-05-09 09:40] VITALS: BP 143/74; PULSE 88; RESP 14; TEMP 37; O2SAT 95
[2023-05-09] MEDS: Pantoprazole Sodium 40 MG Tablet PO ×2 (09:49→21:16)
[2023-05-09] MEDS: Cefepime HCl 1 GM in 0.9% Normal Saline (50mL MB+) 50 ML IV ×2 (09:52→21:17)
[2023-05-09 12:19] LABS: Bedside Glucose 164 mg/dL (74-106)
--- NOTE | 2023-05-09 15:14 | PCM.PN.HOSP ---
Reason for Visit Reason for Visit: Diagnoses Sepsis, unspecified organism (05/05/23) Pneumonia, unspecified organism (05/05/23) Acute respiratory failure with hypoxia (05/05/23) Subjective Subjective No acute events overnight. Patient seen at bedside this morning. Therapy was working with him when I saw him this morning. Patient appeared well this morning, similar to previous days. Denied any acute pain or discomfort today. No other acute concerns. Objective Data Objective Data Vital Signs: Vital Signs Temp Pulse Resp BP Pulse Ox O2 Del Method O2 Flow Rate 98.6 F 88 14 143/74 H 95 Room Air 4 05/09/23 09:40 05/09/23 09:40 05/09/23 09:40 05/09/23 09:40 05/09/23 09:40 05/09/23 10:00 05/07/23 18:20 Oxygen Flow Rate (L/min) 4 Oxygen Delivery Method Room Air Weight: 75.5 kg Body Mass Index (BMI) 22.6 Intake & Output: Intake and Output for Last 24 Hours 05/07/23 05/08/23 05/09/23 23:59 23:59 23:59 Intake Total 1848.00 / 1848.00 2200.17 / 2200.17 1478.83 / 1478.83 Output Total 1700 / 2550 3050 / 3050 350 / 350 Balance 148.00 / -702.00 -849.83 / -849.83 1128.83 / 1128.83 Lab / Micro Data 05/09/23 05:50 05/09/23 05:50 Labs: Laboratory Results - last 24 hr 05/08/23 16:04: POC Glucose 238 H 05/08/23 20:48: POC Glucose 262 H 05/09/23 00:55: POC Glucose 233 H 05/09/23 05:12: POC Glucose 242 H 05/09/23 05:50: WBC 4.1 L, RBC 4.73, Hgb 13.0, Hct 41.3, MCV 87.3, MCH 27.5, MCHC 31.5 L D, RDW Std Deviation 39.3, RDW Coeff of Warren 12.1, Plt Count 100 L, MPV 12.2 H, Sodium 140, Potassium 3.4 L, Chloride 109 H, Carbon Dioxide 24.0, Anion Gap 7, BUN 14, Creatinine 0.76, Estim Creat Clear Calc 106.24, Est GFR (MDRD) Af Amer 133, Est GFR (MDRD) Non-Af 110, BUN/Creatinine Ratio 18.4, Glucose 260 H, Calcium 8.3 L 05/09/23 08:17: POC Glucose 207 H 05/09/23 11:55: POC Glucose 164 H Micro: Microbiology 05/05/23 12:02 Blood Culture (Wb) - Anticubital Left Blood Culture - Preliminary No growth in 48 hours. 05/05/23 12:00 Blood Culture (Wb) - Anticubital Right Blood Culture - Preliminary No growth in 48 hours. 05/05/23 12:55 Urine, Catheterized Urine Culture - Final Culture exhibits no growth. 05/05/23 12:55 Urine Catheter - Hubbard Legionella Antigen - Final 05/05/23 12:55 Urine Catheter - Hubbard Streptococcus pneumoniae Antigen (M - Final 05/05/23 12:20 Mucosa - Nose SARS-CoV-2, Influenza & RSV (PCR) - Final 05/05/23 12:25 Stool Stool Occult Blood (JOANA) - Final Occult Blood Positive Physical Exam Const alert, no apparent distress and average body habitus Constitutional Narrative: Elderly male, chronically ill-appearing, awake and alert appearing today, answers questions with short appropriate responses, cognition and speech remain delayed, resting comfortably in bed and in no acute distress. General Appearance: cooperative and comfortable HEENT normocephalic, head/scalp atraumatic, hearing grossly normal bilaterally and nasal mucous membranes and turbinates normal Eyes PERRL, EOMs intact bilaterally and conjunctivae normal Chest inspection of chest normal Resp normal respiratory effort and no use of accessory muscles Resp Narrative: Breathing comfortably on room air with good oxygen saturations. Mildly decreased breath sounds bilaterally, worse in right base. No wheezing or crackles noted. Cardio regular rate, regular rhythm, no murmurs and peripheral pulses 2+ throughout GI normal to inspection, nondistended, normoactive bowel sounds, soft to palpation, non-tender and non-distended Extremity normal to inspection and no pedal edema Skin no rashes or lesions noted Neuro Neuro Narrative: Residual right-sided hemiplegia noted. Sensorium / Orientation: alert Psych mental status grossly normal Assessment & Plan Assessment/Plan (1) Pneumonia: (2) Acute hypoxemic respiratory failure: (3) Sepsis without septic shock: PLAN: Plan Patient is a 63-year-old male who presented to [facility] ED on 06/01/2023 with shortness of breath. 1. Acute hypoxic respiratory failure and sepsis without shock secondary to community-acquired pneumonia with unknown organism, improving Chest x-ray on admit showed right lower lobe pneumonia, CT chest showed dense right lower lobe consolidation with some additional patchy airspace disease in right upper and left lower lobes consistent with pneumonia. Required up to 15 L of oxygen on admission. Met sepsis criteria on admission with leukocytosis, fever, tachycardia, tachypnea, YADI, altered mental status as noted below. Given 1 L normal saline on admission with maintenance fluids after this, with some improvement in tachycardia, blood pressure stable throughout. Did not give full 30 cc/kg for sepsis fluids given respiratory failure. Respiratory panel negative. Urine antigens negative. Unable to produce sputum culture. Blood cultures pending. ? Ingredient Scaler Helper followed. Stable on room air on 05/05, transferred out of ICU. Continue IV vancomycin for antibiotic coverage for now. Continue scheduled bronchodilators. Tube feeds restarted on 05/05 without issue. 2. Acute metabolic encephalopathy, resolved ? Presumed secondary to respiratory failure and sepsis as noted above. CT head on admit with no acute findings. Mental status improved to baseline on 05/06. 3. Suspected YADI, resolved ? Creatinine 1.70 on admit, baseline creatinine unknown. Creatinine improving with IV fluids and restarting tube feeds, most recent creatinine 0.77 on 05/07 with adequate urine output. Monitor daily BMP and urine output. 4. Recent history of stroke with right-sided hemiplegia and dysphagia ? Had recent stroke in 12/2022. Has been residing at skilled nurse facility since then. Has PEG tube in place for tube feeds. ? Nutrition following, tube feeds restarted on 05/05 without issue. ? GI following, EGD on 05/06 showed erosive esophagitis with bleeding that was treated with heater probe, otherwise showed an intact gastrostomy with patent G-tube characterized by healthy-appearing mucosa. ? Speech therapy following. Patient completed MBSS on 05/07, okay for diet with mechanical soft textures and thin liquids with small bites, small sips, slow rate and one-to-one close supervision. ? PT/OT/case management following. Planning for SNF on discharge, [facility] to returning to his previous SNF as he had a poor experience there. Medically ready for discharge on 05/07, awaiting placement. 5. Hypernatremia, improved ? Sodium 150 on 05/06, chloride 124. Presumed secondary to dehydration from n.p.o. status. Slightly increased to 200 ml of free water given with each tube feed bolus every 4 hours on 05/06, repeat sodium 143 on 05/07. Continue free water with tube feeds, will discuss with nutrition on amount of free water given as needed. Monitor daily sodium. 6. Acute on chronic anemia ? Hemoglobin 12.9 on admit, decreased to 10.2 after IV fluids. No previously known baseline. Hemoglobin slowly downtrended during admission with eliana at 8.9 on 05/06. GI following, s/p EGD on 05/06 that showed grade D erosive esophagitis with bleeding that was treated, no ulcers noted. Repeat hemoglobin 9.5 on 05/07. Continue p.o. PPI twice daily. Monitor hemoglobin daily. Chronic medical conditions: ? Hypertension: Continue to hold home Coreg and losartan for now, restart when able. ? Type 2 diabetes mellitus: Continue home Lantus 16 units at night with sliding scale insulin with tube feeds, adjust as needed. ? Hyperlipidemia: Continue home statin. ? GERD: Increased to p.o. PPI twice daily as noted above. DVT prophylaxis: Lovenox CODE STATUS: Full code, unverified Expected disposition: SNF, medically ready for discharge on 05/07, awaiting placement Total clinical time spent by myself addressing the patient's medical issues, reviewing all the data, and collaborating with patient's care team: 35 minutes. Charges/Coding Visit Charges Inpatient E&M: 32360 Subs Hosp L2
[2023-05-09 15:40] VITALS: BP 166/91; PULSE 96; RESP 18; TEMP 37.1; O2SAT 99
[2023-05-09 16:12] LABS: Bedside Glucose 224 mg/dL (74-106)
[2023-05-09 20:00] VITALS: PULSE 97; RESP 32
[2023-05-09] MEDS: Ipratropium/Albuterol Sulfate 3 ML AMPUL.NEB INHALATION (20:03)
[2023-05-09] MEDS: Budesonide Respules 0.5 MG/2 ML AMPUL.NEB. INHALATION (20:05)
[2023-05-09] MEDS: Insulin Glargine-YFGN 100 UNIT/ML Pen 16 UNIT SC (21:33)
[2023-05-09 21:38] VITALS: BP 135/75; PULSE 101; RESP 16; TEMP 37.2; O2SAT 100
[2023-05-09 21:56] LABS: Bedside Glucose 298 mg/dL (74-106)
[2023-05-10] MEDS: Insulin Lispro 100 UNIT/ML INSULN.PEN SC ×4 (01:05→11:51)
[2023-05-10 01:24] LABS: Bedside Glucose 247 mg/dL (74-106)
[2023-05-10 01:58] VITALS: PULSE 96; RESP 32
[2023-05-10] MEDS: Ipratropium/Albuterol Sulfate 3 ML AMPUL.NEB INHALATION (01:58)
[2023-05-10 02:47] LABS: Hematocrit 43.9 % (40-54); Mean Corp Hgb Conc 31.9 g/dL (32-36); Mean Corpuscular Hgb 27.2 pg (27.0-32.0); Mean Corpuscular Volume 85.2 fL (80-94); Mean Platelet Vol. 12.1 fl (6.2-12.0); Platelet Count 105 K/mm3 (150-450); RBC Distribution Width SD 37.2 fl (35.1-43.9); Red Blood Count 5.15 M/mm3 (4.6-6.2); White Blood Count 5.1 K/mm3 (4.4-11.0)
[2023-05-10 02:55] LABS: Anion Gap 9 (5-15); BUN 12 mg/dL (7-18); BUN/Creat Ratio 16.2 RATIO (10-20); Calcium,Total 8.5 mg/dL (8.5-10.1); Chloride 103 mmol/L (98-107); Creatinine, Serum 0.74 mg/dL (0.70-1.30); EST Glomerular Filtration Rate 114 mL/min (>60); Est Glom Filt Rate - Afr Amer 137 mL/min (>60); Estimated Creatinine Clearance 109.11 ml/min; Glucose 246 mg/dL (74-106); Potassium 3.6 mmol/L (3.5-5.1); Sodium Level 136 mmol/L (136-145)
[2023-05-10 02:58] LABS: Vancomycin, Trough Level 13.1 ug/mL (5.0-15.0)
--- NOTE | 2023-05-10 03:06 | PCM.RX.CS ---
Consult Antibiotic Management Pharmacy has been consulted to manage selected antibiotic: Vancomycin Type of Intervention Type of Consult: Follow-up Labs Labs: Sodium 136 mmol/L (136-145) 05/10/23 02:19 Potassium 3.6 mmol/L (3.5-5.1) 05/10/23 02:19 Chloride 103 mmol/L (98-107) 05/10/23 02:19 Carbon Dioxide 24.0 mmol/L (21.0-32.0) 05/10/23 02:19 Anion Gap 9 (5-15) 05/10/23 02:19 BUN 12 mg/dL (7-18) 05/10/23 02:19 Creatinine 0.74 mg/dL (0.70-1.30) 05/10/23 02:19 Est GFR (MDRD) Af Amer 137 mL/min (>60) 05/10/23 02:19 Est GFR (MDRD) Non-Af 114 mL/min (>60) 05/10/23 02:19 BUN/Creatinine Ratio 16.2 RATIO (10-20) 05/10/23 02:19 Glucose 246 mg/dL (74-106) H 05/10/23 02:19 Vancomycin Trough 13.1 ug/mL (5.0-15.0) 05/10/23 02:19 Microbiology Microbiology: Microbiology 05/05/23 12:02 Blood Culture (Wb) - Anticubital Left Blood Culture - Preliminary No growth in 48 hours. 05/05/23 12:00 Blood Culture (Wb) - Anticubital Right Blood Culture - Preliminary No growth in 48 hours. 05/05/23 12:55 Urine, Catheterized Urine Culture - Final Culture exhibits no growth. 05/05/23 12:55 Urine Catheter - Hubbard Legionella Antigen - Final 05/05/23 12:55 Urine Catheter - Hubbard Streptococcus pneumoniae Antigen (M - Final 05/05/23 12:20 Mucosa - Nose SARS-CoV-2, Influenza & RSV (PCR) - Final 05/05/23 12:25 Stool Stool Occult Blood (JOANA) - Final Occult Blood Positive Goal Trough Goal Trough: 15-20 mcg/mL Pharmacy Plan for Drug Dosing Pharmacy Plan for Drug Dosing: Pharmacy Service will continue to monitor and adjust dosing as required. TROUGH 13.1 @ 12 HOURS. INCREASE TO 1250MG Q12H AND FOLLOW UP TROUGH PRIOR TO 4TH DOSE Follow-Up Labs Follow-Up Labs: Trough: Vancomycin Date/Time Labs Ordered Labs to be done on [date and time ordered]: 05/10 @ 4531
[2023-05-10] MEDS: 0.9% Saline Lock 10 ML Syringe IV (03:14)
[2023-05-10] MEDS: Vancomycin HCl 1,250 MG in 0.9% Normal Saline (250mL Bag) 250 ML 167 MG IV ×2 (03:15→15:14)
[2023-05-10 03:33] LABS: Scan Indicated on CBC? Y/N NO
[2023-05-10 03:38] VITALS: BP 132/72; PULSE 96; RESP 16; TEMP 36.7; O2SAT 96
[2023-05-10] MEDS: guaiFENesin 10 ML UDC (200MG/10ML) GT ×2 (04:55→15:14)
[2023-05-10] MEDS: 0.9% Normal Saline (250mL Bag) 250 ML 15 ML IV (05:04)
[2023-05-10 05:53] VITALS: BMI 23.1
[2023-05-10 06:36] LABS: Bedside Glucose 251 mg/dL (74-106)
[2023-05-10] MEDS: Cefepime HCl 1 GM in 0.9% Normal Saline (50mL MB+) 50 ML IV (08:11)
[2023-05-10] MEDS: Multivitamins,Ther W-Minerals Tablet 1 TABLET GT (08:15)
[2023-05-10] MEDS: Thiamine Hydrochloride 100 MG Tablet GT (08:15)
[2023-05-10] MEDS: Pantoprazole Sodium 40 MG Tablet PO (08:15)
[2023-05-10] MEDS: Atorvastatin Calcium 80 MG Tablet GT (08:16)
[2023-05-10] MEDS: Cholecalciferol (VIT D3) 25 MCG TABLET (1,000 UNITS) 50 MCG GT (08:16)
[2023-05-10 08:32] LABS: Bedside Glucose 214 mg/dL (74-106)
--- NOTE | 2023-05-10 09:22 | CASEMGMT ---
[facility] sent updates to [facility]. Await pre-cert. Ayaka Coley [employer] CERTIFIED SURGICAL TECHNICIAN
[2023-05-10 09:38] VITALS: BP 133/68; PULSE 98; RESP 16; TEMP 37.2; O2SAT 95
--- NOTE | 2023-05-10 10:44 | CASEMGMT ---
Social Work As per admitting RN, pt does not have LW/POA, declined further information. THAI Piedra
--- NOTE | 2023-05-10 14:02 | DCINST_ITS ---
Discharge Instructions Diet Discharge Diet: No restrictions Activity Discharge Activity: No Restrictions Weight Bearing Status: Full weight bearing Follow Up Care Test Results: Test results from this visit will be discussed in further detail at your follow- up appointment, if applicable. Discharge Plan Admission Admit Date/Time: 05/05/23 13:56 Primary Reason for Your Visit: acute respiratory failure secondary to pneumonia Attending Provider: Roverto Zavala Primary Care Provider: Maddy Monte Consulting Providers: Abril Barrera Discharge Orders/Prescriptions Prescriptions: New pantoprazole 40 mg Tablet,Delayed Release (Dr/Ec) 40 mg PO BID Qty: 0 0RF doxycycline hyclate 100 mg capsule 100 mg PO BID 2 Days Qty: 4 0RF Continued ammonium lactate 12 % cream 1 applic topical BID PRN (Reason: dry skin) aspirin 81 mg tablet,chewable 1 tab feeding tube DAILY atorvastatin 80 mg tablet 80 mg feeding tube DAILY carvedilol 25 mg tablet 25 mg feeding tube BID cholecalciferol (vitamin D3) 50 mcg (2,000 unit) capsule 50 mcg feeding tube DAILY insulin glargine 100 unit/mL solution 16 unit subcut QPM Rx Instructions: DO NOT HOLD UNLESS APPROVED BY losartan 50 mg tablet 50 mg feeding tube DAILY multivitamin with iron-mineral Tablet 1 tab feeding tube DAILY thiamine HCl (vitamin B1) 100 mg tablet 100 mg feeding tube DAILY Referrals / Follow Up: Juan C Barnes MD [Med Staff - Active Staff] - Maddy Monte, WEATHERIZATION FIELD TECHNICIAN-C [Primary Care Provider] - Disposition Disposition (needs filled in before D/C Order can be placed): [facility]
--- NOTE | 2023-05-10 14:05 | PCM.TXEXTCAR ---
Diet Diet Order/Speech Therapy: 05/08/23 09:57 Diet: Regular - General Food consistency:: Soft & Bite Sized Liquid Consistency:: Regular/Thin Is pt able to select menu?: No Diet Comments: Direct supervision - SMALL bites/sips, one at a time Routine Orders/Code Status Code Status: Full Code Therapies Weight Bearing: Weight bearing as tolerated Physical Therapy: Eval and Treat Occupational Therapy: Eval and Treat Speech Therapy: Eval and Treat Problem/Diagnosis (1) Pneumonia: Status: Acute Code(s): J18.9 - Pneumonia, unspecified organism (2) Acute hypoxemic respiratory failure: Status: Acute Code(s): J96.01 - Acute respiratory failure with hypoxia (3) Sepsis without septic shock: Status: Acute Code(s): A41.9 - Sepsis, unspecified organism Plan Patient is a 63-year-old male who presented to [facility] ED on 05/05/2023 with shortness of breath. Hospital course as noted below. Patient was discharged to SNF in stable condition on 05/09. 1. Acute hypoxic respiratory failure and sepsis without shock secondary to community-acquired pneumonia with unknown organism, improving Chest x-ray on admit showed right lower lobe pneumonia, CT chest showed dense right lower lobe consolidation with some additional patchy airspace disease in right upper and left lower lobes consistent with pneumonia. Required up to 15 L of oxygen on admission. Met sepsis criteria on admission with leukocytosis, fever, tachycardia, tachypnea, YADI, altered mental status as noted below. Given 1 L normal saline on admission with maintenance fluids after this, with some improvement in tachycardia, blood pressure stable throughout. Did not give full 30 cc/kg for sepsis fluids given respiratory failure. Respiratory panel negative. Urine antigens negative. Unable to produce sputum culture. Blood cultures negative. ? Scientist Electronics followed. Stable on room air on 05/05, transferred out of ICU. Treated with cefepime and vancomycin while inpatient, discharged on doxycycline to complete a 7-day course of antibiotics total. Continue scheduled bronchodilators. Tube feeds restarted on 05/05 without issue. 2. Acute metabolic encephalopathy, resolved ? Presumed secondary to respiratory failure and sepsis as noted above. CT head on admit with no acute findings. Mental status improved to baseline on 05/06. 3. Suspected YADI, resolved ? Creatinine 1.70 on admit, baseline creatinine unknown. Creatinine improving with IV fluids and restarting tube feeds, most recent creatinine 0.77 on 05/07 with adequate urine output. Monitor daily BMP and urine output. 4. Recent history of stroke with right-sided hemiplegia and dysphagia ? Had recent stroke in 12/2022. Has been residing at skilled nurse facility since then. Has PEG tube in place for tube feeds. ? Nutrition following, tube feeds restarted on 05/05 without issue. ? GI following, EGD on 05/06 showed erosive esophagitis with bleeding that was treated with heater probe, otherwise showed an intact gastrostomy with patent G-tube characterized by healthy-appearing mucosa. ? Speech therapy following. Patient completed MBSS on 05/07, okay for diet with mechanical soft textures and thin liquids with small bites, small sips, slow rate and one-to-one close supervision. ? PT/OT/case management followed. Medically ready for discharge on 05/07, discharged to SNF in stable condition on 05/09. 5. Hypernatremia, resolved ? Sodium 150 on 05/06, chloride 124. Presumed secondary to dehydration from n.p.o. status. Slightly increased to 200 ml of free water given with each tube feed bolus every 4 hours on 05/06, repeat sodium 143 on 05/07. Nutrition followed, appreciate further recs with how much free water to give with tube feeds going forward. 6. Acute on chronic anemia ? Hemoglobin 12.9 on admit, decreased to 10.2 after IV fluids. No previously known baseline. Hemoglobin slowly downtrended during admission with eliana at 8.9 on 05/06. GI following, s/p EGD on 05/06 that showed grade D erosive esophagitis with bleeding that was treated, no ulcers noted. Repeat hemoglobin 9.5 on 05/07. Continue p.o. PPI twice daily. Hemoglobin stable ~9 on discharge. Chronic medical conditions: ? Hypertension: Home Coreg and losartan held during admission, okay to resume on discharge. ? Type 2 diabetes mellitus: Continue home Lantus 16 units at night with sliding scale insulin with tube feeds, adjust as needed. ? Hyperlipidemia: Continue home statin. ? GERD: Increased to p.o. PPI twice daily as noted above. Total clinical time spent by myself addressing the patient's medical issues, reviewing all the data, and collaborating with patient's care team: 35 minutes. Allergies/Procedures Done in Hospital Allergies No Known Allergies Allergy (Verified 05/05/23 11:58) Procedures: EKG and - (CT brain without contrast, CXR, CT chest w/out contrast, MBSS) Type of Care/Length of Stay Estimated LOS: Convalescent Care Less Than 30 days Type of Care Needed: Skilled Rehab Potential: Fair Prognosis: Fair Additional Orders/Day of Discharge H&P will serve as current which was dated: 05/05/23 Day of Discharge: 05/10/23 Dietary and Speech Recommendations Dietitian Recommendations/Changes: Continue TF support via PEG tube: Jevity 1.5 at 60mL/hour with 200mL H2O flush every 4 hours to provide 2160 calories, 92 g protein, and 2294mL total fluid/day. PO diet for comfort: regular diet as tolerated with textures/consistency per AIRCRAFT STEEL FABRICATOR. Will adjust diet/Enteral nutrition support as indicated; TF meeting~100% estimated nutrition needs as currently ordered. Discharge Plan Admission Admit Date/Time: 05/05/23 13:56 Primary Reason for Your Visit: acute respiratory failure secondary to pneumonia Attending Provider: Roverto Zavala Primary Care Provider: Maddy Monte Consulting Providers: Abril Barrera Discharge Orders/Prescriptions Prescriptions: New pantoprazole 40 mg Tablet,Delayed Release (Dr/Ec) 40 mg PO BID Qty: 0 0RF Continued ammonium lactate 12 % cream 1 applic topical BID PRN (Reason: dry skin) aspirin 81 mg tablet,chewable 1 tab feeding tube DAILY atorvastatin 80 mg tablet 80 mg feeding tube DAILY carvedilol 25 mg tablet 25 mg feeding tube BID cholecalciferol (vitamin D3) 50 mcg (2,000 unit) capsule 50 mcg feeding tube DAILY insulin glargine 100 unit/mL solution 16 unit subcut QPM Rx Instructions: DO NOT HOLD UNLESS APPROVED BY losartan 50 mg tablet 50 mg feeding tube DAILY multivitamin with iron-mineral Tablet 1 tab feeding tube DAILY thiamine HCl (vitamin B1) 100 mg tablet 100 mg feeding tube DAILY Referrals / Follow Up: Juan C Barnes MD [Med Staff - Active Staff] - Maddy Monte NP-C [Primary Care Provider] - Disposition Disposition (needs filled in before D/C Order can be placed): [facility] Facility Charges/Coding Visit Charges Inpatient E&M: 90696 Disch Hosp >30min
--- NOTE | 2023-05-10 14:11 | PCM.DC.SUM ---
Providers Date of Admission: 05/05/23 Date of Discharge: 05/10/23 Primary Care Physician: KATIE Jiménez Consultations 05/05/23 14:17 Consult: Pilot Captain / Pulmonary Medicine Routine Consulting Provider: Intensivists/Pulmonary Med Reason for Consult: acute hypoxic respiratory failure EMERGENT Consult: No Notified: Yes Date Notified: 05/05/23 Time Notified: 14:17 Method of Notification: Notified TELE-ICU 05/05/23 18:53 Consult: Gastroenterology Routine Consulting Provider: [facility] Reason for Consult: GI Bleed EMERGENT Consult: No Notified: Yes Date Notified: 05/05/23 Time Notified: 18:54 Method of Notification: Text Reason For Visit: ACUTE HYPOXIC RESPIRATORY FAILURE Diagnosis Discharge Diagnosis (1) Pneumonia: Status: Acute Code(s): J18.9 - Pneumonia, unspecified organism (2) Acute hypoxemic respiratory failure: Status: Acute Code(s): J96.01 - Acute respiratory failure with hypoxia (3) Sepsis without septic shock: Status: Acute Code(s): A41.9 - Sepsis, unspecified organism Medications at Discharge Home Medications ammonium lactate 12 % topical cream 1 applic topical BID PRN dry skin 05/05/23 aspirin 81 mg chewable tablet 1 tab feeding tube DAILY CARDIOVASCULAR 05/05/23 atorvastatin 80 mg tablet 80 mg feeding tube DAILY CHOLESTEROL 05/05/23 carvedilol 25 mg tablet 25 mg feeding tube BID HIGH BLOOD PRESSURE 05/05/23 cholecalciferol (vitamin D3) 50 mcg (2,000 unit) capsule 50 mcg feeding tube DAILY VIT D DEFICIENCY 05/05/23 insulin glargine 100 unit/mL subcutaneous solution 16 unit subcut QPM DIABETES 05/05/23 losartan 50 mg tablet 50 mg feeding tube DAILY HIGH BLOOD PRESSURE 05/05/23 multivitamin with iron-mineral 1 tab feeding tube DAILY VITAMIN 05/05/23 thiamine HCl (vitamin B1) 100 mg tablet 100 mg feeding tube DAILY VITAMIN B DIFICIENCY 05/05/23 doxycycline hyclate 100 mg capsule 100 mg PO BID 2 days #4 caps 05/10/23 pantoprazole 40 mg tablet,delayed release 40 mg PO BID #0 tabs 05/10/23 Hospital Course Operations None Procedures EKG, Modified Barium Swallow and - (CT brain without contrast, CT chest without contrast, chest x-ray) Summary of Care Provided Minutes Spent on Discharge: 35 Hospital Course: Patient is a 63-year-old male who presented to [facility] ED on 05/05/2023 with shortness of breath. Hospital course as noted below. Patient was discharged to SNF in stable condition on 05/09. 1. Acute hypoxic respiratory failure and sepsis without shock secondary to community-acquired pneumonia with unknown organism, improving Chest x-ray on admit showed right lower lobe pneumonia, CT chest showed dense right lower lobe consolidation with some additional patchy airspace disease in right upper and left lower lobes consistent with pneumonia. Required up to 15 L of oxygen on admission. Met sepsis criteria on admission with leukocytosis, fever, tachycardia, tachypnea, YADI, altered mental status as noted below. Given 1 L normal saline on admission with maintenance fluids after this, with some improvement in tachycardia, blood pressure stable throughout. Did not give full 30 cc/kg for sepsis fluids given respiratory failure. Respiratory panel negative. Urine antigens negative. Unable to produce sputum culture. Blood cultures negative. ? Pilot Captain followed. Stable on room air on 05/05, transferred out of ICU. Treated with cefepime and vancomycin while inpatient, discharged on doxycycline to complete a 7-day course of antibiotics total. Continue scheduled bronchodilators. Tube feeds restarted on 05/05 without issue. 2. Acute metabolic encephalopathy, resolved ? Presumed secondary to respiratory failure and sepsis as noted above. CT head on admit with no acute findings. Mental status improved to baseline on 05/06. 3. Suspected YADI, resolved ? Creatinine 1.70 on admit, baseline creatinine unknown. Creatinine improving with IV fluids and restarting tube feeds, most recent creatinine 0.77 on 05/07 with adequate urine output. Monitor daily BMP and urine output. 4. Recent history of stroke with right-sided hemiplegia and dysphagia ? Had recent stroke in 12/2022. Has been residing at skilled nurse facility since then. Has PEG tube in place for tube feeds. ? Nutrition following, tube feeds restarted on 05/05 without issue. ? GI following, EGD on 05/06 showed erosive esophagitis with bleeding that was treated with heater probe, otherwise showed an intact gastrostomy with patent G-tube characterized by healthy-appearing mucosa. ? Speech therapy following. Patient completed MBSS on 05/07, okay for diet with mechanical soft textures and thin liquids with small bites, small sips, slow rate and one-to-one close supervision. ? PT/OT/case management followed. Medically ready for discharge on 05/07, discharged to SNF in stable condition on 05/09. 5. Hypernatremia, resolved ? Sodium 150 on 05/06, chloride 124. Presumed secondary to dehydration from n.p.o. status. Slightly increased to 200 ml of free water given with each tube feed bolus every 4 hours on 05/06, repeat sodium 143 on 05/07. Nutrition followed, appreciate further recs with how much free water to give with tube feeds going forward. 6. Acute on chronic anemia ? Hemoglobin 12.9 on admit, decreased to 10.2 after IV fluids. No previously known baseline. Hemoglobin slowly downtrended during admission with eliana at 8.9 on 05/06. GI following, s/p EGD on 05/06 that showed grade D erosive esophagitis with bleeding that was treated, no ulcers noted. Repeat hemoglobin 9.5 on 05/07. Continue p.o. PPI twice daily. Hemoglobin stable ~9 on discharge. Chronic medical conditions: ? Hypertension: Home Coreg and losartan held during admission, okay to resume on discharge. ? Type 2 diabetes mellitus: Continue home Lantus 16 units at night with sliding scale insulin with tube feeds, adjust as needed. ? Hyperlipidemia: Continue home statin. ? GERD: Increased to p.o. PPI twice daily as noted above. Total clinical time spent by myself addressing the patient's medical issues, reviewing all the data, and collaborating with patient's care team: 35 minutes. Physical Exam Const alert, no apparent distress and average body habitus Constitutional Narrative: Elderly male, chronically ill-appearing, awake and alert appearing today, answers questions with short appropriate responses, cognition and speech remain delayed, resting comfortably in bed and in no acute distress. General Appearance: cooperative and comfortable HEENT normocephalic, head/scalp atraumatic, hearing grossly normal bilaterally and nasal mucous membranes and turbinates normal Eyes PERRL, EOMs intact bilaterally and conjunctivae normal Chest inspection of chest normal Resp normal respiratory effort and no use of accessory muscles Resp Narrative: Breathing comfortably on room air with good oxygen saturations. Mildly decreased breath sounds bilaterally, worse in right base. No wheezing or crackles noted. Cardio regular rate, regular rhythm, no murmurs and peripheral pulses 2+ throughout GI normal to inspection, nondistended, normoactive bowel sounds, soft to palpation, non-tender and non-distended Extremity normal to inspection and no pedal edema Skin no rashes or lesions noted Neuro Neuro Narrative: Residual right-sided hemiplegia noted. Sensorium / Orientation: alert Psych mental status grossly normal Weight / BMI Weight Weight: 77.25 kg Body Mass Index (BMI) 23.1 ABG / Lab / Microbiology Data 05/10/23 02:19 05/10/23 02:19 Laboratory: Laboratory Results - last 24 hr 05/09/23 15:45: POC Glucose 224 H 05/09/23 21:32: POC Glucose 298 H 05/10/23 01:03: POC Glucose 247 H 05/10/23 02:19: WBC 5.1, RBC 5.15, Hgb 14.0, Hct 43.9, MCV 85.2, MCH 27.2, MCHC 31.9 L, RDW Std Deviation 37.2, RDW Coeff of [place] 12.0, Plt Count 105 L, MPV 12.1 H, Sodium 136, Potassium 3.6, Chloride 103, Carbon Dioxide 24.0, Anion Gap 9, BUN 12, Creatinine 0.74, Estim Creat Clear Calc 109.11, Est GFR (MDRD) Af Amer 137, Est GFR (MDRD) Non-Af 114, BUN/Creatinine Ratio 16.2, Glucose 246 H, Calcium 8.5, Vancomycin Trough 13.1 05/10/23 05:00: POC Glucose 251 H 05/10/23 08:08: POC Glucose 214 H Microbiology: Microbiology 05/05/23 12:02 Blood Culture (Wb) - Anticubital Left Blood Culture - Final No growth in 5 days. 05/05/23 12:00 Blood Culture (Wb) - Anticubital Right Blood Culture - Final No growth in 5 days. 05/05/23 12:55 Urine, Catheterized Urine Culture - Final Culture exhibits no growth. 05/05/23 12:55 Urine Catheter - [place] Legionella Antigen - Final 05/05/23 12:55 Urine Catheter - [place] Streptococcus pneumoniae Antigen (M - Final 05/05/23 12:20 Mucosa - Nose SARS-CoV-2, Influenza & RSV (PCR) - Final 05/05/23 12:25 Stool Stool Occult Blood (JOANA) - Final Occult Blood Positive D/C Instructions Discharge Diet: No restrictions Weight Bearing Status: Full weight bearing Meaningful Use Info Meaningful Use Diagnoses (Choose all that apply): None applicable Discharge Plan Admission Admit Date/Time: 05/05/23 13:56 Primary Reason for Your Visit: acute respiratory failure secondary to pneumonia Attending Provider: Roverto Zavala Primary Care Provider: Maddy Monte Consulting Providers: Abril Barrera Discharge Orders/Prescriptions Prescriptions: New pantoprazole 40 mg Tablet,Delayed Release (Dr/Ec) 40 mg PO BID Qty: 0 0RF doxycycline hyclate 100 mg capsule 100 mg PO BID 2 Days Qty: 4 0RF Continued ammonium lactate 12 % cream 1 applic topical BID PRN (Reason: dry skin) aspirin 81 mg tablet,chewable 1 tab feeding tube DAILY atorvastatin 80 mg tablet 80 mg feeding tube DAILY carvedilol 25 mg tablet 25 mg feeding tube BID cholecalciferol (vitamin D3) 50 mcg (2,000 unit) capsule 50 mcg feeding tube DAILY insulin glargine 100 unit/mL solution 16 unit subcut QPM Rx Instructions: DO NOT HOLD UNLESS APPROVED BY losartan 50 mg tablet 50 mg feeding tube DAILY multivitamin with iron-mineral Tablet 1 tab feeding tube DAILY thiamine HCl (vitamin B1) 100 mg tablet 100 mg feeding tube DAILY Referrals / Follow Up: Juan C Barnes MD [Med Staff - Active Staff] - Maddy Monte NP-C [Primary Care Provider] - Disposition Disposition (needs filled in before D/C Order can be placed): [facility] Charges/Coding Visit Charges Inpatient E&M: 56178 Disch Hosp >30min
--- NOTE | 2023-05-10 14:17 | CASEMGMT ---
Patient was approved to go to [facility]. SW notified physician. DAGO called [facility] and arranged for patient to get picked up at 19:00. SW sent orders and bead picker time to [facility] via [facility]. DAGO notified RN, corporate secretary, and patient's mom via phone. Plan: d/c to [facility] under skilled level of care. Physicians will transport patient via cot. Ayaka Coley [employer] JASE
[2023-05-10 14:24] LABS: Bedside Glucose 210 mg/dL (74-106)
--- NOTE | 2023-05-10 14:53 | PHA.DC.MR.R ---
Pharmacy [place] Med Reconciliation Pharmacy Service has performed discharge medication reconciliation for this patient. The patient's discharge medication list was reviewed for discrepancies and discrepancies were resolved. Medications at Discharge Home Medications ammonium lactate 12 % topical cream 1 applic topical BID PRN dry skin 05/05/23 aspirin 81 mg chewable tablet 1 tab feeding tube DAILY CARDIOVASCULAR 05/05/23 atorvastatin 80 mg tablet 80 mg feeding tube DAILY CHOLESTEROL 05/05/23 carvedilol 25 mg tablet 25 mg feeding tube BID HIGH BLOOD PRESSURE 05/05/23 cholecalciferol (vitamin D3) 50 mcg (2,000 unit) capsule 50 mcg feeding tube DAILY VIT D DEFICIENCY 05/05/23 insulin glargine 100 unit/mL subcutaneous solution 16 unit subcut QPM DIABETES 05/05/23 losartan 50 mg tablet 50 mg feeding tube DAILY HIGH BLOOD PRESSURE 05/05/23 multivitamin with iron-mineral 1 tab feeding tube DAILY VITAMIN 05/05/23 thiamine HCl (vitamin B1) 100 mg tablet 100 mg feeding tube DAILY VITAMIN B DIFICIENCY 05/05/23 doxycycline hyclate 100 mg capsule 100 mg PO BID 2 days #4 caps 05/10/23 pantoprazole 40 mg tablet,delayed release 40 mg PO BID #0 tabs 05/10/23
[2023-05-10] MEDS: Jevity 1.5 1,000 ML 60 ML GT (15:16)
== END 2023-05-10 18:37 | disposition skilled nursing facility (03) | DRG 720 ==
LOC: ED 13:47 → ICU 14:13 → PCU 05-06 18:56
PROVIDERS: Family Medicine; Internal Medicine Gastroenterology; Internal Medicine Pulmonary Disease; Admitting Provider Student in an Organized Health Care Education/Training Program; Emergency Provider Emergency Medicine; PCP Nurse Practitioner Family; Visit Provider Hospitalist
PROC: 0DJ08ZZ Inspection of Upper Intestinal Tract, Via Natural or Artificial Opening Endoscopic (ICD-10-PCS; CPT 43235; principal; 2023-05-07 15:55)
DX: A41.9 Sepsis, unspecified organism (principal); J96.01 Acute respiratory failure with hypoxia; J69.0 Pneumonitis due to inhalation of food and vomit; G93.41 Metabolic encephalopathy; K21.01 Gastro-esophageal reflux disease with esophagitis, with bleeding; N17.9 Acute kidney failure, unspecified; I69.351 Hemiplegia and hemiparesis following cerebral infarction affecting right dominant side; E11.9 Type 2 diabetes mellitus without complications; Z79.4 Long term (current) use of insulin; Z93.1 Gastrostomy status; D64.9 Anemia, unspecified; I10 Essential (primary) hypertension; E87.0 Hyperosmolality and hypernatremia; E78.5 Hyperlipidemia, unspecified; I69.391 Dysphagia following cerebral infarction; E86.0 Dehydration; Z79.82 Long term (current) use of aspirin; Z79.899 Other long term (current) drug therapy; Z87.891 Personal history of nicotine dependence
CPT/HCPCS: 36415; 36569; 70450; 71045; 71250; 74230; 80048; 80053; 80202; 80320; 81001; 82009; 82274; 82803; 82962; 83036; 83605; 84484; 85025; 85027; 85610; 85730; 87040; 87086; 87449; 87631; 87640; 88305; 88312; 92526; 92610; 92611; 93005; 94640; 94762; 97110; 97162; 97166; 97530; 97535; 97802; 97803; 99252; 99285; J7030; J7040; J7050; A4216; G0463; G0480; J3490

== ENCOUNTER 2023-05-15 09:09 | Emergency (ER) | payer MEDICAID, SELFPAY ==
[2023-05-15] VITALS (27 sets, daily range): BP systolic 96–158; BP diastolic 66–96; PULSE 76–112; RESP 16–18; TEMP 36–36.6; O2SAT 94–99; BMI 18.7
--- NOTE | 2023-05-15 09:42 | RAD_ITS ---
STUDY: X-RAY CHEST REASON FOR EXAM: Male, 63 years old. Fever and cough TECHNIQUE: Single AP portable view of the chest. COMPARISON: 05/05/2023 FINDINGS: Lungs are expanded with partial but not yet complete resolution of previously described opacifications in the right mid and lower lung pickard. Previously noted opacification in the left lung base has cleared. Normal size heart. Normal mediastinum and aman. Normal visualized pulmonary arteries. Normal visualized aortic arch and descending thoracic aorta. Normal visualized thoracic spine. Normal visualized ribs, clavicles, and shoulders. There is no demonstrated abnormality of the visualized soft tissue structures of the upper abdomen.
--- NOTE | 2023-05-15 09:42 | EX.ED.DYSGE1 ---
HPI History of Present Illness Chief Complaint: Nausea/Vomiting Informant: patient and parent Onset/Context/Timing Onset: Today Context: Gradual Onset Timing: Continuous Current Severity: Mild Maximum Severity: Mild Narrative Narrative: 63-year-old male currently in [facility] of the [facility]. Had a large stroke with right-sided hemiparalysis in December. Was here than [facility] in the [place]. He then was readmitted and discharged a week ago for pneumonia and dehydration. He does have a history of diabetes and hypertension also. Reportedly had nausea and vomiting today. Patient is a limited informant. His parents have arrived while was doing my exam. I spoken with them. 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 Nicotine dependence, other tobacco product, uncomplicated Other hereditary and idiopathic neuropathies Type 2 diabetes mellitus without complications Vitamin D deficiency, unspecified Home Medications ammonium lactate 12 % topical cream 1 applic topical BID PRN dry skin 05/05/23 [History Last Taken Unknown] aspirin 81 mg chewable tablet 1 tab feeding tube DAILY CARDIOVASCULAR 05/05/23 [History Last Taken Unknown] atorvastatin 80 mg tablet 80 mg feeding tube DAILY CHOLESTEROL 05/05/23 [History Last Taken Unknown] carvedilol 25 mg tablet 25 mg feeding tube BID HIGH BLOOD PRESSURE 05/05/23 [History Last Taken Unknown] cholecalciferol (vitamin D3) 50 mcg (2,000 unit) capsule 50 mcg feeding tube DAILY VIT D DEFICIENCY 05/05/23 [History Last Taken Unknown] insulin glargine 100 unit/mL subcutaneous solution 16 unit subcut QPM DIABETES 05/05/23 [History Last Taken Unknown] losartan 50 mg tablet 50 mg feeding tube DAILY HIGH BLOOD PRESSURE 05/05/23 [History Last Taken Unknown] multivitamin with iron-mineral 1 tab feeding tube DAILY VITAMIN 05/05/23 [History Last Taken Unknown] thiamine HCl (vitamin B1) 100 mg tablet 100 mg feeding tube DAILY VITAMIN B DIFICIENCY 05/05/23 [History Last Taken Unknown] doxycycline hyclate 100 mg capsule 100 mg PO BID 2 days #4 caps 05/10/23 [Rx Last Taken Unknown] pantoprazole 40 mg tablet,delayed release 40 mg PO BID #0 tabs 05/10/23 [Rx Last Taken Unknown] ondansetron 4 mg disintegrating tablet 4 mg PO Q6H PRN nausea and vomiting #10 tabs 05/15/23 [Rx Last Taken Unknown] Allergy/AdvReac Type Severity Reaction Status Date / Time No Known Allergies Allergy Verified 05/15/23 09:09 Social History Smoking Status: Former smoker ROS ROS ED ROS Narrative Nausea and vomiting today.Patient is a limited informant. Review of Systems ROS Unobtainable: Denies due to encephalopathy Constitutional Constitutional ED: Denies chills or fever(s) Eyes Eyes: Denies blurry vision ENT ENT ED: Denies ear pain Cardiovascular Cardiovascular: Denies chest pain Respiratory/Chest Respiratory/Chest: Denies cough Gastrointestinal Gastrointestinal: Reports nausea and vomiting; Denies abdominal pain, constipation, diarrhea or melena Genitourinary Genitourinary ED: Denies dysuria or hematuria Musculoskeletal Musculoskeletal: Denies arthralgias Integumentary Denies abscess Neurologic Neurologic: Denies headache(s) Psychiatric Psychiatric: Denies anxiety Endocrine Endocrinology: Denies cold intolerance Hematologic/Lymphatic Hematologic/Lymphatic: Reports none Allergic/Immunologic Allergic/Immunologic ED: Denies mouth swelling, tongue swelling or urticaria EXAM Physical Exam Narrative Exam Narrative: Six 3-year-old male initial blood pressure 96/66. Pulse ox 95% on room air. Afebrile. H EENT exam at light. Dry mucous members. Neck nontender no lymphadenopathy. Lungs clear to auscultation bilaterally. Heart regular rhythm rate about 110 no murmur. Chest wall and ribs nontender. Abdomen soft, nondistended normal bowel sounds no peritoneal signs. No signs of obstruction. He does have a left upper quadrant feeding tube. Extremities he has paralysis on the right upper and right lower extremity. They fall right back to the bed. 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 The hemiparalysis on the right is chronic from his stroke in December. He is awake. He does answer limited questions. He is a limited informant. Const Vital Signs: 05/15/23 09:10 05/15/23 09:10 05/15/23 11:09 Temperature 96.8 F L 96.8 F L Temperature Source Temporal Temporal Pulse Rate 112 H 111 H 109 H Respiratory Rate 18 18 18 Blood Pressure 96/66 96/66 100/68 Blood Pressure Mean 76 76 78 Pulse Ox 95 95 99 Oxygen Delivery Method Room Air 05/15/23 13:00 05/15/23 15:00 Temperature Temperature Source Pulse Rate 108 H 107 H Respiratory Rate 18 16 Blood Pressure 119/86 H 136/85 H Blood Pressure Mean 97 102 Pulse Ox 97 97 Oxygen Delivery Method Room Air Room Air Positive well nourished and well developed; Negative for obese, cachectic, contractures or unkempt General Appearance ED: well developed; Negative for unkempt, cachectic, contractures, cyanotic, diaphoretic, NAD or pallor Nutritional Appearance: Negative for cachectic or obese HEENT Reports dry mucous membranes; Denies moist mucous membranes Negative for trauma or tenderness Mouth ED: Yes dry mucous membranes Mouth: dry mucous membranes Eyes PERRL and EOMs intact bilaterally General Eye ED: Negative for pale conjunctiva or scleral icterus Neck no lymphadenopathy, supple and no JVD General: Negative for tenderness Lymph Lymphatic: Negative for other Chest Wall inspection of chest normal and palpation of chest normal Chest: Negative for other Resp normal respiratory effort and clear to auscultation bilaterally Effort and Inspection: Negative for retractions Auscultation: Negative for rales, rhonchi or wheezes Cardio regular rhythm, S1 normal heart sound, S2 normal heart sound and no murmurs; Negative for regular rate Palpation: Negative for palpable S3 or palpable S4 Rate: tachycardic Rhythm: Negative for abnormal rhythm GI normal to inspection, nondistended, normoactive bowel sounds, non-tender, non-distended and no masses Inspection: Negative for abdominal distention Auscultation: normoactive bowel sounds Palpation: soft; Negative for tender, guarding or rebound tenderness present Back/Spine no CVA tenderness General Back: Negative for CVA tenderness Cervical Spine: Negative for cervical spine tenderness Thoracic Spine / Upper Back: Negative for thoracic spinal tenderness Lumbar Spine / Lower Back: Negative for lumbar spinal tenderness Extremity Negative for normal to inspection Extremity Narrative: Right upper and lower extremity paralysis. General Extremety ED: Negative for edema or tenderness General Extremity: Negative for edema Neuro No oriented x3 Neuro Narrative: Right-sided hemiparalysis. Awake. Alert. Limited informant. Sensorium / Orientation: alert and orientation impaired Motor Exam: strength abnormal; Negative for strength 5/5 throughout Psych mental status grossly normal Appearance: Negative for unkempt Attitude: No agitated Mood & Affect: Negative for depressed, anxious or tearful Skin no rashes or lesions noted and no wounds General Skin Exam: Negative for jaundice or pallor Lesions: No lesion noted Rashes: No rashes noted Trauma: Negative for abrasion Wounds: Negative for wounds noted MDM MDM MDM Narrative Medical decision making narrative: 63-year-old male history of a large stroke in December with right-sided paralysis. Currently in extended-care facility resident. Presents today hypotensive with nausea and vomiting. Patient is a limited informant but his parents are present in the room I spoke to them about his history. Repeat exam patient doing well at 12:20 PM. I discussed with the patient and his mom his lab results. Due to the elevated white count him to get a CT of his abdomen. Repeat abdominal exam complains of mild periumbilical left-sided tenderness. There is no hernia, mass or obstruction. There is deafly no peritoneal signs. There is no specific right upper or right lower quadrant tenderness. No appreciable mass. He does not anymore currently for nausea according to his mom. He is receiving IV fluids. There is elevated blood sugar of 436 will be treated with subcu insulin. His gap is only 8. He is not in DKA. CAT scan of his abdomen showed no acute intra-abdominal pathology. He has a resolving right-sided pneumonia. The chest x-ray was much improved on that. Patient doing well at 2:25 PM. Will be discharged back to extended-care facility. I spoke to his parents earlier. Patient's had no signs of bleeding. We will hook his PEG tube up to suction and ensure there is no blood there. He has had multiple episodes of vomiting and has been no blood in his emesis. I did speak to Dr. Larios about his recent endoscopy. He and I are comfortable the patient being discharged back to the extended care facility. History & Record Review Discussion w/independent historian: Patient and Family Additional record(s) reviewed:: Prior inpatient record, Prior outpatient record, Prior ED visit and Prior labs Lab Data Attestation: I reviewed the patient's lab results. Lab results narrative: CBC shows an elevated white count at 18.0. H&H 9.4 and 30. Platelets 549. Electrolytes show a gap of 8. BUN of 27 creatinine 1.19 consistent with dehydration. Glucose is elevated 436. Liver enzymes alk phos is 208. ALT 72. Lipase is only 77. Urinalysis is negative. No white or red cells. No nitrites nor bacteria. Labs: Laboratory Results - last 24 hr 05/15/23 05/15/23 10:25 13:20 WBC 18.0 H RBC 3.58 L Hgb 9.4 L Hct 30.4 L MCV 84.9 MCH 26.3 L MCHC 30.9 L RDW Std Deviation 36.3 RDW Coeff of [place] 11.9 Plt Count 549 H MPV 11.2 Immature Gran % (Auto) 0.400 Neut % (Auto) 80.9 H Lymph % (Auto) 14.0 L Faulk % (Auto) 3.8 Eos % (Auto) 0.6 Baso % (Auto) 0.3 Absolute Neuts (auto) 14.5 H Absolute Lymphs (auto) 2.52 Nucleated RBC % 0 Sodium 138 Potassium 4.4 Chloride 98 Carbon Dioxide 32.0 Anion Gap 8 BUN 27 H Creatinine 1.19 Estim Creat Clear Calc 66.05 Est GFR (MDRD) Af Amer 79 Est GFR (MDRD) Non-Af 66 BUN/Creatinine Ratio 22.7 H Glucose 436 H Calcium 10.5 H Total Bilirubin 0.30 AST 20 ALT 72 H Alkaline Phosphatase 208 H Total Protein 8.4 H Albumin 2.5 L Globulin 5.9 H Albumin/Globulin Ratio 0.4 L Lipase 77 H Urine Color Yellow Urine Clarity Clear Urine pH 7.0 Ur Specific [place] 1.010 Urine Protein 100 H Urine Glucose (UA) 1000 H Urine Ketones Negative Urine Occult Blood Negative Urine Nitrite Negative Urine Bilirubin Negative Urine Urobilinogen Normal Ur Leukocyte Esterase 25 H Urine RBC 0 SEEN Urine WBC 0 SEEN Ur Squamous Epith Cells 0-5 SEEN Urine Bacteria 0 SEEN Urine Mucus 0 SEEN Radiography Chest X-Ray - ED: 1 View, Read by ED Physician, Read by Radiologist, Heart, Lungs, Mediastinum, Bony Structures, No Acute Disease and Chronic Changes Diagnostic Testing: Clinical Impression(s) from Imaging Studies Chest X-Ray 05/15/23 09:42 IMPRESSION: Improvement since the previous study with near complete resolution of the previously noted right lower lobe infiltrate. Follow-up recommended to assure complete resolution. Previously noted left basilar opacification has cleared Electronically Signed: Jeff Mariano MD at 10:14 EDT , Abdomen/Pelvis CT 05/15/23 12:19 IMPRESSION: 1. Residual right middle and lower lobe pneumonia with interval improvement in the right lower lobe consolidation. 2. No acute abdominal or pelvic abnormality. Electronically Signed: Cricket Lancaster MD at 13:06 EDT , Chest x-ray, portable, single view interpreted both by myself and the radiologist is unremarkable. Chronic changes. No acute process. Prior pneumonia is resolved. CT shows no acute intra-abdominal pathology. Read by the radiologist and reviewed by me. Discharge Plan Triage Chief Complaint: Nausea/Vomiting ED Provider: Venancio Boswell Dx/Rx/DC Orders Clinical Impression: History of embolic stroke, Hyperglycemia due to diabetes mellitus, History of diabetes mellitus, Abdominal pain, Vomiting Instructions: ED Diabetic Hyperglycemia, ED Vomiting (Adult) Prescriptions: New ondansetron 4 mg tablet,disintegrating 4 mg PO Q6H PRN (Reason: nausea and vomiting) Qty: 10 0RF Rx Instructions: Zofran for the nausea. You can put it through his feeding tube. No Action ammonium lactate 12 % cream 1 applic topical BID PRN (Reason: dry skin) aspirin 81 mg tablet,chewable 1 tab feeding tube DAILY atorvastatin 80 mg tablet 80 mg feeding tube DAILY carvedilol 25 mg tablet 25 mg feeding tube BID cholecalciferol (vitamin D3) 50 mcg (2,000 unit) capsule 50 mcg feeding tube DAILY insulin glargine 100 unit/mL solution 16 unit subcut QPM Rx Instructions: DO NOT HOLD UNLESS APPROVED BY losartan 50 mg tablet 50 mg feeding tube DAILY multivitamin with iron-mineral Tablet 1 tab feeding tube DAILY thiamine HCl (vitamin B1) 100 mg tablet 100 mg feeding tube DAILY pantoprazole 40 mg Tablet,Delayed Release (Dr/Ec) 40 mg PO BID Qty: 0 0RF doxycycline hyclate 100 mg capsule 100 mg PO BID 2 Days Qty: 4 0RF Primary Care Provider: Juan C Barnes Referrals: Juan C Barnes MD [Primary Care Provider] - 1-2 Days if not improving Maddy Monte NP-C [Non-Staff -Ordering Privileges] - Activity Restrictions/Additional Instructions: Follow-up in next several days for reevaluation either by your staff there or with his primary care provider. Plenty of fluids. Zofran as needed for nausea which you can put into his feeding tube. His labs show an elevated blood sugar of 436. We gave him insulin here subcu 12 units. His blood sugar will need to be rechecked tonight at dinnertime. Otherwise his labs and the CAT scan of his abdomen did not show any acute pathology. Disposition Disposition: Home, Self Care
[2023-05-15] MEDS: Ondansetron 4 MG/2 ML Vial IV ×2 (10:04→12:55)
[2023-05-15] MEDS: 0.9% Normal Saline (1000mL) 1,000 ML 1000 ML IV (10:04)
[2023-05-15 10:38] LABS: Absolute Lymphocyte Count 2.52 X10^3/uL (0.83-4.51); Absolute Neutrophil Count 14.5 X10^3/uL (2.0-7.7); Basophil# 0.06 X10^3/uL; Basophil% 0.3 % (0-1); Eosinophils% 0.6 % (0-5); Hematocrit 30.4 % (40-54); Hemoglobin 9.4 g/dL (13.0-16.5); Lymphocyte # 2.52 X10^3/ul (0.83-4.51); Mean Corp Hgb Conc 30.9 g/dL (32-36); Mean Corpuscular Hgb 26.3 pg (27.0-32.0); Mean Corpuscular Volume 84.9 fL (80-94); Mean Platelet Vol. 11.2 fl (6.2-12.0); Monocyte# 0.68 X10^3/uL; Monocyte% 3.8 % (0-10); NRBC Flagged by Analyzer 0 % (0-5); Neutrophil # 14.51 X10^3/uL (2.7-7.7); Neutrophil % 80.9 % (47-70); Platelet Count 549 K/mm3 (150-450); RBC Distribution Width CV 11.9 % (11.6-14.6); RBC Distribution Width SD 36.3 fl (35.1-43.9); Red Blood Count 3.58 M/mm3 (4.6-6.2)
[2023-05-15 10:56] LABS: ALB/GLOB Ratio 0.4 RATIO (0.9-2.4); AST(SGOT) 20 U/L (15-37); Alanine Aminotransfer ALT/SGPT 72 U/L (16-61); Albumin, Serum 2.5 g/dL (3.2-5.0); Alkaline Phosphatase 208 U/L (45-117); Anion Gap 8 (5-15); BUN 27 mg/dL (7-18); BUN/Creat Ratio 22.7 RATIO (10-20); Calcium,Total 10.5 mg/dL (8.5-10.1); Chloride 98 mmol/L (98-107); Creatinine, Serum 1.19 mg/dL (0.70-1.30); EST Glomerular Filtration Rate 66 mL/min (>60); Est Glom Filt Rate - Afr Amer 79 mL/min (>60); Estimated Creatinine Clearance 66.05 ml/min; Globulin 5.9 g/dL (2.2-4.2); Glucose 436 mg/dL (74-106); Lipase 77 U/L (13-75); Potassium 4.4 mmol/L (3.5-5.1); Protein, Total 8.4 g/dL (6.4-8.2); Sodium Level 138 mmol/L (136-145)
--- NOTE | 2023-05-15 12:19 | CT_ITS ---
EXAM: CT ABDOMEN AND PELVIS WITH INTRAVENOUS CONTRAST CLINICAL INDICATION: vomiting, hiccups TECHNIQUE: Helically acquired images were obtained of the abdomen and pelvis with intravenous contrast. This CT exam was performed using one or more of the following dose reduction techniques: automated exposure control, adjustment of the mA and/or kV according to patient size, and/or use of iterative reconstruction technique. CONTRAST: 100 ml isovue 300 COMPARISON: CT chest 05/06/2023 FINDINGS: LOWER THORAX: Significant improvement in the consolidation/atelectasis of the right lower lobe. Residual airspace opacification of the right middle and lower lobes. Minimal residual right pleural effusion. ABDOMEN: LIVER: Normal. Homogeneous. No focal mass. PANCREAS: Normal. No focal cystic or solid mass. SPLEEN: Normal. Normal size without focal cystic or solid mass. ADRENALS: Normal. No nodules. KIDNEYS AND URETERS: 13 mm simple appearing left renal cyst. No follow-up indicated. Normal renal size and position. No hydronephrosis. STOMACH AND BOWEL: Residual high density contrast within the large bowel and rectum. Nonspecific fluid distention of the stomach. PELVIS: APPENDIX: No evidence of acute appendicitis. BLADDER: Normal. REPRODUCTIVE: Unremarkable as visualized. No mass. ABDOMEN and PELVIS: INTRAPERITONEAL SPACE: Normal. No ascites or other fluid collection. No free air. BONES/JOINTS: No suspicious lytic or blastic abnormality. SOFT TISSUES: Normal. No discrete abdominal or pelvic wall hernia. VASCULATURE: Normal. Abdominal aorta is non-dilated. LYMPH NODES: Normal. No enlarged lymph nodes. TUBES, LINES AND DEVICES: Gastrostomy tube in place. CT/Abdomen/Pelvis W IV Cont ONLY IMPRESSION: 1. Residual right middle and lower lobe pneumonia with interval improvement in the right lower lobe consolidation. 2. No acute abdominal or pelvic abnormality. Electronically Signed: Cricket Lancaster MD at 13:06 EDT ,
[2023-05-15 13:26] LABS: Bacteria 0 SEEN /hpf (None Seen); Mucous, Urine 0 SEEN /hpf (<or=2+); Red Blood Cells-Urine 0 SEEN /hpf (0-5); White Blood Cells 0 SEEN /hpf (0-5)
[2023-05-15 13:31] LABS: Color, Urine Yellow (Yellow); Glucose, Dipstick 1000 mg/dl (Normal); Ketone-Dipstick Negative (Negative); Leukocyte Esterase-Dipstick 25 /ul (Negative); Nitrite-Dipstick Negative (Negative); Occult Blood-Urine Negative /ul (Negative); Protein-Dipstick 100 mg/dl (Negative); Urine Bilirubin Dipstick Negative (Negative); Urine Clarity Clear (Clear); Urine Urobilinogen Normal (Normal)
--- OUTSIDE RECORDS SUMMARY | 2023-05-15 14:07 | XMS RPT_ITS | CCD ---
Author Name Unknown Address [address] [place] [address] Organization [facility] Care Team Providers Care Mold Shaker Name Role Phone DEAN MCGINNIS Admitting Unavailable CHA WILLINGHAM Attending Unavailable PARISH GODINEZ Consulting Unavaila ble Problems Problem Classification Problem Date Documented Da te Episodic/Chronic Acute cerebrovascular disease (1 source) Cerebral infarction, unspecified; Translations: [Acute ischemic stroke (HCC)] Onset: 12-10-2022 Chronic Malaise and fatigue (1 source) Weakness; Translations: [Right sided weakness] Onset: 12-10-2022 Episodic Other connective tissue disease (1 source) Facial weakness; Translations: [Facial droop] Onset: 12-09-2022 Episodic Residual codes; unclassified (1 source) Altered mental status, unspecified; Translations: [Altered mental status, unspecified altered mental status type] Onset: 12-06-2022 Episodic Results Test Name Value Interpretation Reference Range Facil ity Encounters Encounter Date Encounter Type Care Provider Facility Start: 12-09-2022 End: 12-10-2022 Evaluation and management of inpatient DEANSAMANTHA MCGINNIS Facility:[id number] Start: 12-06-2022 End: 12-07-2022 Emergency department patient visit DEANSAMANTHA MCGINNIS Facility:[id number] Payers Date Payer Category Payer Unknown [id number] Progress note 12-15-2022 Note Date & Type Note Facility 12-15-2022 Note HNO ID: [id number] Author: Note, Interface Service: ? Author Type: ? Type: Progress Notes Filed: 12/15/2022 6:01 AM Note Text: Epic Scheduled Downtime: 12/15/2022 1:00:00 AM to 12/15/2022 1:28:00 AM [facility] Progress note 12-10-2022 Note Date & Type Note Facility 12-10-2022 Note HNO ID: [id number] Author: Cha Willingham DO Service: Hospital Medicine Author Type: Physician Type: Progress Notes Filed: 12/10/2022 9:32 PM Note Text: DISCHARGE SUMMARY PATIENT NAME: Ata Copeland Code Status: Full Code Highest Readmission Risk Score: 12 The 30 day readmissions risk score is derived from an internally validated risk model which evaluates patient level characteristics, utilization history, medication orders and lab results up until the day of discharge. Patients with a score of 40 or above are considered highest risk for readmission. Specific patient level drivers will be listed at the bottom of the summary. Admission Information Admission Information ADMIT DATE: 12/09/2022 DISCHARGE DATE: 12/10/2022 MY DOCTORS AND MEDICAL TEAM: My Main Hospital Doctor: Cha Willingham DO Primary Care Provider: [facility] OSMIN MARTIN My Medical Team Members: Treatment Team: Attending Provider: Cha Willingham DO Consulting: Parish Godinez MD Attending: MR CHARISSA WESLEY MY CONDITION AT DISCHARGE: Fair REASON I WAS IN THE HOSPITAL: Strokelike symptoms SUMMARY OF WHAT HAPPENED WHILE I WAS IN THE HOSPITAL: Admitted for further stroke evaluation with MRI, echocardiogram dual antiplatelet therapy was started with aspirin and Plavix high intensity statin permissive hypertension was followed by stroke neurologist ACCELERATOR SYSTEMS DIRECTOR, PT and OT to work with patient, risk stratification has dyslipidemia with LDL (bad cholesterol) 180 when goal is < 70, HDL 37 goal is greater than 40, blood sugars have not been well controlled on average over the past 3 months with an A1c of 8.1% goal is less than 7%, magnesium was slightly low at 1.5 this morning requiring IV replacement meanwhile the preference was to be transferred back to [facility] and George Cerrillos accepted with transport plan for the evening and screening COVID test. MRI confirmed strokes Acute infarcts in the left mesial temporal lobe, posterior limb of the internal capsule and lateral thalamus, likely in the left anterior choroidal artery territory. 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) Mixed dyslipidemia Hypertensive emergency Alcohol abuse history Tobacco abuse history Hypomagnesemia OPERATIONS PERFORMED WHILE IN THE HOSPITAL: None IMPORTANT TEST/PROCEDURES: No procedures performed TEST RESULTS NOT AVAILABLE AT THIS TIME: No pending results Discharge Disposition Discharge Disposition: Acute Care Facility Additional Provider to Provider Information: Treatment Team: Attending Provider: Cha Willingham DO Consulting: Parish Godinez MD Attending: MR CHARISSA WESLEY Transitions of Care Critical Issues: SPECIALIST [facility] LABS AND PROCEDURES PENDING AT DISCHARGE: No pending results. FOLLOW-UP APPOINTMENTS ALREADY SCHEDULED WITH A [facility] PROVIDER: No future appointments. ALLERGIES No Known Allergies DISCHARGE MEDICATION: Medication List You have not been prescribed any medications. Discharge Physical Exam: VITAL SIGNS: BP 189/96 Pulse 97 Temp 36.6 ?C (97.9 ?F) (Oral) Resp 18 Ht 170.2 cm (5' 7 ) Wt 79.5 kg (175 lb 4.8 oz) SpO2 96% BMI 27.46 kg/m? GENERAL: Alert, no distress, cooperative LUNGS: Lungs clear to auscultation, Good diaphragmatic excursion CARDIAC: Normal S1 and S2; no rubs, murmurs, or gallops ABDOMEN: Soft, nontender EXTREMITIES: Extremities normal, no deformities, edema, clubbing or skin discoloration. Good capillary refill., No ulcers NEURO: Grossly normal cognition, motor function, and cranial nerves III-XII, slight dysarthria, right sided weakness The patient's risk for 30-day readmission is determined using the following contributing factors: Pt variables contributing to increased readmission risk: 13 Active Medication Orders 10 Most Recent BUN Result 9.6 First Resulted Calcium During Admission 2 Number of Previous ED Visits (6 mos.) 1 Previous ED Visit (6 mos.)? 1 Insurance - Private Coverage 1 Active Anticoagulant I have performed the [id number] and relevant services for a total of >30 minutes. SIGNATURE: Cha Willingham DO DATE: December 10, 2022 TIME: 1:43 PM [facility] Progress note 12-10-2022 Note Date & Type Note Facility 12-10-2022 Note HNO ID: [id number] Author: Luz Maria Schulz RT(R) Service: ? Author Type: Technologist Type: Progress Notes Filed: 12/10/2022 9:29 AM Note Text: Summary: MRI Radiology Service Progress Note PATIENT NAME: Ata Copeland DATE OF SERVICE: December 10, 2022 TIME: 9:29 AM PATIENT IDENTITY VERIFICATION COMPLETED USING TWO (2) IDENTIFIERS: Name and Date of confirmed by patient verbally and Name and Date of confirmed by identification band. FALL SCREENING: Has the patient had 2 falls in the last year or 1 fall with injury or currently using an Ambulatory Assistive Device (Walker, Cane, Wheelchair, Crutches, etc.)? Inpatient: Screened on floor PATIENT GENDER DATA: Male PATIENT RELEVANT IMPLANT DATA REVIEWED: Yes RADIOLOGY DEPARTMENT: MR; Exam(s) Completed: Head: Routine Brain PERIPHERAL IV DATA: Not applicable SIGNED BY: Luz Maria Schulz, (R) December 10, 2022 9:29 AM [facility] Clinical Note 12-09-2022 Note Date & Type Note Facility 12-09-2022 Note HNO ID: [id number] Author: Taiwo Taylor RN Service: Care Management Author Type: Registered Nurse Type: Care Mgt Progress Note Filed: 12/09/2022 1:17 PM Note Text: CARE MANAGEMENT PROGRESS NOTE SERVICE DATE: 12/09/2022 SERVICE TIME: 10:05 AM LOS: [address] Bustillo pt will need to be admitted for probable stroke, but pt is service connected [facility] and prefers to transfer to [facility] to make sure stay is covered. Called [facility] and spoke to Toshia who will review clinicals that were faxed and call back. 11:05 Josephine from [facility] called back, states she will fax over consent to transfer form for pt to complete and will review case with their ED physician for approval for ED to ED transfer. If approved, she will arrange transportation. 13:10 [facility] called back, states their ED physician does not want to do ED to ED transfer, would rather pt be evaluated by their neurologist for direct admit to neurology, but they do not have an on-call neurologist over the weekend. Josephine states to admit pt here at [facility] today and they will follow up in the morning for transfer to [facility]. Dr. Bustillo notified. SIGNATURE: Taiwo Taylor RN PATIENT NAME: Ata Copeland DATE: December 09, 2022 TIME: 10:05 AM PAGER/CONTACT #: [phone] [facility] Summary Purpose Family History No Family History Records Found Advance Directives No Advanced Directives Records Found Additional Source Comments (unrecognized sect ion and content) No Status Records Found INFORMATION SOURCE (unrecogn ized section and content) FOR RECORDS PERTAINING TO PATIENTS WHO ARE OR HAVE BEEN ENROLLED IN A CHEMICAL DEPENDENCY/SUBSTANCEABUSE PROGRAM, SOME INFORMATION MAY BE OMITTED. This clinical summary was aggregated from multiple sources. Caution should be exercised in using it in the provision of clinical care. This summary normalizes information from multiple sources, and as a consequence, information in this document may materially change the coding, format and clinical context of patient data. In addition, data may be omitted in some cases. CLINICAL DECISIONS SHOULD BE BASED ON THE PRIMARY CLINICAL RECORDS. [employer] provides no warranty or guarantee of the accuracy or completeness of information in this document.
[2023-05-15 14:10] LABS: Squamous Epithelial Cells - UA 0-5 SEEN /hpf (0-5)
[2023-05-15] MEDS: Insulin Lispro 100 UNIT/ML INSULN.PEN 12 UNIT SC (14:52)
--- NOTE | 2023-05-15 17:29 | NURSING ---
CALLED [facility], ETA IS 90 MIN
== END 2023-05-15 19:03 | disposition home or self-care (01) ==
PROVIDERS: Emergency Provider Emergency Medicine; PCP Family Medicine; Visit Provider Emergency Medicine
DX: E11.65 Type 2 diabetes mellitus with hyperglycemia (principal); I69.351 Hemiplegia and hemiparesis following cerebral infarction affecting right dominant side; R10.9 Unspecified abdominal pain; R11.10 Vomiting, unspecified; Z87.891 Personal history of nicotine dependence
CPT/HCPCS: 51701; 36415; 71045; 74177; 80053; 81001; 83690; 85025; 96374; 96376; 99284; J7030; P9612; Q9967; A4216; J2405

== ENCOUNTER 2023-06-24 10:55 | Day surgery (SDC) | payer MEDICAID, SELFPAY ==
--- NOTE | 2023-06-24 | ESO_PTH ---
PATIENT: DREA MORLEY LOC: EN U#:[id number] AGE/SX: 63/M ROOM: RE06/24/[address]: Dr. Ryan Larios DO : 1960 BED: DIS: 06/24/2023 SPEC #: [id number] RECD: 06/24/23 18:23 STATUS: RIYA JOE #: [id number] ROSE MARY: 06/24/23 00:[address]: Ryan Larios DEPT: SURGICAL PATHOLOGY RECD BY: Kee Pineda ENTERED: 06/25/23 08:00 SP TYPE: KEY MARTINEZ DR: Dr. Juan C Barnes MD Tissues: Esophagus, NOS Procedures: Special Stain Group II Surgery Specimen Level IV Alcian Blue/PAS (control) HEADER OPERATION: EGD with biopsy PRE-OP DIAGNOSIS: Screening TISSUE SUBMITTED: Distal esophagus biopsy MICROSCOPIC DIAGNOSIS Distal esophagus, biopsy: Fragments of gastroesophageal mucosa with chronic inflammation. Intestinal metaplasia (goblet cell metaplasia) not identified. See comment. TONNY/ 06/26/23 COMMENT Alcian blue/PAS stain with matched control is used in the evaluation of the specimen. MICROSCOPIC DESCRIPTION Slides are reviewed. GROSS DESCRIPTION Received in fixative is one container labeled with the patient's name and designated Distal esophagus biopsy. The specimen consists of two irregular fragments of light parker soft tissue that in aggregate measure 0.8 x 0.4 x 0.1 cm. The specimen is totally submitted in one cassette. / 06/25/2023 TC:3 CPT:96752,53609
--- NOTE | 2023-06-24 11:29 | HP.PCM_ITS ---
History and Physical Date of Admission: 06/24/23 DREA MORLEY, is a 63 M who presents to the office today for HFU. BGI established via [facility] hospitalization .05.25-05.10.23. Presented with SOB per pneumonia. GI consulted for emesis, aspiration pneumonia and dysphagia. EGD 05.07.2324 Grade D erosive esophagitis with bleeding. Increased PPI to BID. [facility] ER 05.15.23 presented with nausea and vomiting. OV 06.07.23- Pt here with transporter with [facility]. States he is not having any nausea or vomiting. Unsure how long he has PEG or why it was placed. Pt states he does do some oral intake without difficulty. ROS Const Constitutional: No fatigue ENT ENT: No difficulty swallowing Gastro GI: No abdominal pain, belching, bloating, change in bowel habits, change in stool character, coffee ground emesis, constipation, cramping, diarrhea, heartburn, difficulty swallowing, feeling full early, excessive flatus, incontinent of stools, Vomiting blood/hematemesis, Blood in stool, loose stools, Black,tarry stools, nausea/dyspepsia, pain with swallowing, vomiting or other Musc Musculoskeletal: No joint pain Skin Skin: No yellowing of the eye or itchy eyes Psych Psychiatric: No anxiety and No depression Endo Endocrine: No fatigue Aller/Imm Allergy/Immunologic: No itchy eyes Kayden/Lymp Hematologic/Lymphatic: No easy bleeding or easy bruising Exam Const General: cooperative and comfortable Nutritional Appearance: average body habitus and well nourished [facility] Head: normal to inspection Ears: hearing grossly normal bilaterally Nose: external nose normal Face and sinus: normal facial exam Mouth: oral mucosae normal Throat: posterior oropharynx normal Eyes General: appearance normal, both eyes and all related structures Neck Neck: normal visual inspection Chest Chest palpation & inspection: normal inspection of the chest and normal palpation of entire chest wall Resp Effort & Inspection: normal respiratory effort Auscultation: Bilateral: Clear to Auscultation Cardio Palpation: normal PMI Rate: regular rate Rhythm: regular rhythm GI Inspection: normal to inspection Auscultation: normal bowel sounds Percussion: normal to percussion Palpation: no hepatosplenomegaly Skin General: no rashes or lesions noted Neuro General: patient alert Extrem General: normal to inspection Psych Affect: normal affect Quality Reporting Tobacco Screening ([facility] 138) Smoking Status: Former smoker Assessment and Plan Assessment and Plan (1) Abdominal pain: Status: Inactive Plan: 63-year-old male history of a large stroke in December with right-sided paralysis. Currently in extended-care facility resident. Presented to the ER due to him being hypotensive with nausea and vomiting. Repeat exam patient doing well at 12:20 PM. I discussed with the patient and his mom his lab results. Due to the elevated white count him to get a CT of his abdomen. Repeat abdominal exam complains of mild periumbilical left-sided tenderness. There is no hernia, mass or obstruction. There is deafly no peritoneal signs. There is no specific right upper or right lower quadrant tenderness. No appreciable mass. He does not anymore currently for nausea according to his mom. He is receiving IV fluids. There is elevated blood sugar of 436 will be treated with subcu insulin. His gap is only 8. He is not in DKA. CAT scan of his abdomen showed no acute intra-abdominal pathology. He has a resolving right-sided pneumonia. The chest x-ray was much improved on that. His upper endoscopy did show severe erosive esophagitis LA grade D along with some inflammation in his stomach thought to be secondary to delayed gastric emptying from getting a PEG tube placed in the history of diabetes. Recommendation: Repeat upper endoscopy, check lab work including ESR, CRP, lactic acid, LDH and CBC I have examined the patient and the H&P has been reviewed. There are no clinical changes since date of exam.
[2023-06-24] MEDS: Lactated Ringers 1,000 ML 15 ML IV (11:30)
[2023-06-24 11:42] VITALS: BP 133/72; PULSE 81; RESP 16; TEMP 36.4; O2SAT 98; BMI 17.8
[2023-06-24 11:51] LABS: Bedside Glucose 128 mg/dL (74-106)
--- NOTE | 2023-06-24 13:23 | OP.EGD_ITS ---
Patient Name: Ata Copeland Procedure Date: 06/24/2023 11:53 AM Date of : 1960 Age: 63 Procedure: Upper GI endoscopy Indications: Epigastric abdominal pain, Esophageal reflux Providers: Ryan Larios DO Referring MD: Juan C Barnes MD Medicines: Monitored Anesthesia Care Patient Profile: This is a 63 year old male. Refer to note in patient chart for documentation of history and physical. Patient has symptoms of chronic regurgitation, acute vomiting and chronic vomiting. Complications: No immediate complications. Procedure: Pre-Anesthesia Assessment: - Prior to the procedure, a History and Physical was performed, and patient medications and allergies were reviewed. The risks and benefits of the procedure and the sedation options and risks were discussed with the patient. All questions were answered and informed consent was obtained. Patient identification and proposed procedure were verified by the physician. Mental Status Examination: normal. Prophylactic Antibiotics: The patient does not require prophylactic antibiotics. Prior Anticoagulants: The patient has taken no anticoagulant or antiplatelet agents. ASA Grade Assessment: II - A patient with mild systemic disease. After reviewing the risks and benefits, the patient was deemed in satisfactory condition to undergo the procedure. The anesthesia plan was to use monitored anesthesia care (MAC). Immediately prior to administration of medications, the patient was re-assessed for adequacy to receive sedatives. The heart rate, respiratory rate, oxygen saturations, blood pressure, adequacy of pulmonary ventilation, and response to care were monitored throughout the procedure. The physical status of the patient was re-assessed after the procedure. After obtaining informed consent, the endoscope was passed under direct vision. Throughout the procedure, the patient's blood pressure, pulse, and oxygen saturations were monitored continuously. The gastroscope was introduced through the mouth, and advanced to the second part of duodenum. The upper GI endoscopy was accomplished without difficulty. The patient tolerated the procedure well. Scope In: 1:15:46 PM Scope Out: 1:18:14 PM Total Procedure Duration Time 0 hours 2 minutes 28 seconds Findings: The examined esophagus was normal. The Z-line was irregular and was found 39 cm from the incisors. Biopsies were taken with a cold forceps for histology. Verification of patient identification for the specimen was done. Estimated blood loss was minimal. There was evidence of an intact gastrostomy with a patent G-tube present in the gastric body. This was characterized by healthy appearing mucosa. No gross lesions were noted in the first portion of the duodenum. Impression: - Normal esophagus. - Z-line irregular, 39 cm from the incisors. Biopsied. - Intact gastrostomy with a patent G-tube present characterized by healthy appearing mucosa. - No gross lesions in the first portion of the duodenum. Recommendation: - Return patient to referring hospital for ongoing care. - Resume previous diet. - Continue present medications. - Await pathology results. - Repeat upper endoscopy in 1 year for surveillance. Procedure Code(s): --- Professional --- 68212, Esophagogastroduodenoscopy, flexible, transoral; with biopsy, single or multiple CPT copyright 2021 [employer]. All rights reserved. The codes documented in this report are preliminary and upon closing machine operator review may be revised to meet current compliance requirements. Ryan Larios DO 06/24/2023 1:23:28 PM This report has been signed electronically. Number of Addenda: 0 Note Initiated On: 06/24/2023 11:53 AM
--- NOTE | 2023-06-24 13:24 | OP.CCLET_ITS ---
06/24/2023 Juan C Barnes MD [address] [id number] Re : Upper GI endoscopy procedure for Ata Copeland Dear Dr. Barnes This procedure was performed on Saturday, June 24, 2023. My impressions and recommendations are as follows: Impressions : - Normal esophagus. - Z-line irregular, 39 cm from the incisors. Biopsied. - Intact gastrostomy with a patent G-tube present characterized by healthy appearing mucosa. - No gross lesions in the first portion of the duodenum. Recommendations : - Return patient to referring hospital for ongoing care. - Resume previous diet. - Continue present medications. - Await pathology results. - Repeat upper endoscopy in 1 year for surveillance. My findings are described in the full procedure note, which is enclosed. If I can be of further assistance, please feel free to contact me at . Sincerely, Ryan Larios, 06/24/2023 1:23:28 PM This report has been signed electronically.
[2023-06-24 13:25] VITALS: BP 133/72; BP 98/70; PULSE 84; RESP 14; TEMP 36.4; O2SAT 100
[2023-06-24 13:30] VITALS: BP 102/74; BP 133/72; PULSE 84; RESP 16; O2SAT 100
[2023-06-24 13:35] VITALS: BP 116/86; BP 133/72; PULSE 86; RESP 16; O2SAT 100
[2023-06-24 13:40] VITALS: BP 133/72; BP 137/96; PULSE 92; RESP 16; TEMP 36.3; O2SAT 100
[2023-06-24 14:05] VITALS: BP 133/72
--- NOTE | 2023-06-24 14:13 | SUR.PHASEII ---
NURSE LARISA FROM [facility] CALLED FOR REPORT.
== END 2023-06-24 14:05 | disposition home or self-care (01) ==
LOC: EN 10:56 → AC 10:58
PROVIDERS: PCP Family Medicine; Referring Provider Family Medicine; Visit Provider Internal Medicine Gastroenterology
PROC: 0DJ08ZZ Inspection of Upper Intestinal Tract, Via Natural or Artificial Opening Endoscopic (ICD-10-PCS; CPT 43235; principal; 2023-06-24 12:00)
DX: R10.9 Unspecified abdominal pain (principal); Z93.1 Gastrostomy status; Z79.4 Long term (current) use of insulin; E11.9 Type 2 diabetes mellitus without complications; I10 Essential (primary) hypertension; K21.9 Gastro-esophageal reflux disease without esophagitis; E78.00 Pure hypercholesterolemia, unspecified; E55.9 Vitamin D deficiency, unspecified; Z86.73 Personal history of transient ischemic attack (TIA), and cerebral infarction without residual deficits; Z87.891 Personal history of nicotine dependence; Z79.899 Other long term (current) drug therapy
CPT/HCPCS: 43239; 82962; 88305; 88313; J7120; J2405

== ENCOUNTER 2023-08-10 09:59 | Inpatient (IN) | payer MEDICAID, SELFPAY ==
[2023-08-10] VITALS (8 sets, daily range): BP systolic 124–153; BP diastolic 73–80; PULSE 64–97; RESP 12–26; TEMP 35.7–37.2; O2SAT 98–100; BMI 23.3; BMI 23.8
--- NOTE | 2023-08-10 10:08 | RAD_ITS ---
STUDY: X-RAY CHEST REASON FOR EXAM: Male, 63 years old. Worsening shortness of breath TECHNIQUE: Single AP portable view of the chest. COMPARISON: 05/15/2023 FINDINGS: EKG leads overlie the chest. Stable elevation of the right hemidiaphragm The lungs are clear and expanded. There is no demonstrated pleural abnormality. Normal size heart. Normal mediastinum and aman. Normal visualized pulmonary arteries. Normal visualized aortic arch and descending thoracic aorta. Normal visualized thoracic spine. Normal visualized ribs, clavicles, and shoulders. There is no demonstrated abnormality of the visualized soft tissue structures of the upper abdomen. RAD/Chest 1 View IMPRESSION: No acute pulmonary process Electronically Signed: Jeff Mariano MD at 10:48 EDT ,
--- NOTE | 2023-08-10 10:08 | EKG12_ITS ---
Test Reason : CP Blood Pressure : / mmHG Vent. Rate : 092 BPM Atrial Rate : 092 BPM P-R Int : 128 ms QRS Dur : 080 ms QT Int : 378 ms P-R-T Axes : 046 036 058 degrees QTc Int : 467 ms Sinus rhythm with frequent Premature ventricular complexes Otherwise normal ECG Confirmed by OSWALDO SOMMERS, OUMAR ([id number]), scientific publications editor ELIZABETH CAO ([id number]) on 08/12/2023 9:49:13 AM Referred By: Confirmed By:OUMAR CHACON MD
[2023-08-10 10:20] LABS: Absolute Lymphocyte Count 2.65 X10^3/uL (0.83-4.51); Absolute Neutrophil Count 4.5 X10^3/uL (2.0-7.7); Basophil# 0.04 X10^3/uL; Basophil% 0.5 % (0-1); Eosinophil# 0.08 X10^3/uL; Hematocrit 41.2 % (40-54); Hemoglobin 12.9 g/dL (13.0-16.5); Lymphocyte # 2.65 X10^3/ul (0.83-4.51); Lymphocyte % 34.2 % (19-41); Mean Corp Hgb Conc 31.3 g/dL (32-36); Mean Corpuscular Hgb 26.5 pg (27.0-32.0); Mean Corpuscular Volume 84.6 fL (80-94); Mean Platelet Vol. 12.7 fl (6.2-12.0); Monocyte# 0.46 X10^3/uL; Monocyte% 5.9 % (0-10); NRBC Flagged by Analyzer 0 % (0-5); Neutrophil # 4.49 X10^3/uL (2.7-7.7); Neutrophil % 58.1 % (47-70); Platelet Count 221 K/mm3 (150-450); RBC Distribution Width CV 13.2 % (11.6-14.6); RBC Distribution Width SD 40.7 fl (35.1-43.9); Red Blood Count 4.87 M/mm3 (4.6-6.2); White Blood Count 7.7 K/mm3 (4.4-11.0)
--- NOTE | 2023-08-10 10:29 | CT_ITS ---
STUDY: CT ABDOMEN AND PELVIS WITH CONTRAST REASON FOR EXAM: Male, 63 years old. Diffuse abdominal pain, blood noted in PEG tube RADIATION DOSAGE (If Supplied By Facility): CTDIvol = ( 12.62 ) mGy, DLP = ( 799.05 ) mGycm TECHNIQUE: Transaxial images were obtained from the dome of the diaphragm to the symphysis pubis without oral contrast. IV 100mL Isovue-370 was administered. Sagittal and coronal images were reconstructed. Individualized dose optimization techniques were used for this CT. COMPARISON: 05/15/2023 FINDINGS: The visualized lung bases are unremarkable. The visualized portions of the heart are within normal limits. Normal liver. Normal gallbladder and extrahepatic biliary system. Normal spleen. Normal pancreas. Normal bilateral adrenal glands. No obstructive uropathy, or suspicious solid renal lesion there is a simple left renal cyst. Stomach is distended with an air-fluid level, PEG tube noted in the body the stomach without complication. The pyloric channel and proximal half of the duodenum is also fluid distended, there is a transition point and narrowing of the fourth portion of the duodenum as it crosses between the aorta and the SMA. Retained stool noted throughout the colon including the rectum distended with stool. The appendix is visualized and appears normal. Appendix seen on coronal reconstructed image 64 Normal abdominal aorta. Normal inferior vena cava. Normal retroperitoneum. No bladder wall thickening or mass lesion, there are dependent bladder calcifications noted. Normal abdominal wall. Mild degenerative bony changes CT/Abdomen/Pelvis W IV Cont ONLY IMPRESSION: Distended stomach containing an air-fluid level with distended proximal half of the duodenum. There is a transition point in the distal duodenum as it passes between the aorta and the SMA, there may be a nutcracker effect present PEG tube noted in the body of the stomach with no CT evidence of complication Simple left renal cyst no specific follow-up needed Dependent bladder calcifications Degenerative bony changes Electronically Signed: Jeff Mariano MD at 11:47 EDT ,
--- NOTE | 2023-08-10 10:31 | ED.VIS.GI ---
HPI HPI - GI History of Present Illness Chief Complaint: GI Bleed Detail of Chief Complaint: Blood in PEG tube and vomiting Informant: patient and SNF Narrative Narrative: Patient presents via EMS from snf with concern for blood in his feeding tube and vomiting. Patient has had prior stroke and does have some expressive aphasia but will answer yes/no questions. He denies any chest pain. He does admit to abdominal pain. He admits to vomiting that started this morning and abdominal pain that started this morning. Denies being on blood thinners. Patient with prior gastrostomy. No history of ulcers. [facility] Medical History (Updated 08/10/23 @ 12:[address] 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 Type 2 diabetes mellitus without complications Iron deficiency anemia, unspecified Hyperlipidemia, unspecified Essential (primary) hypertension Cerebral infarction 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 Hemiplegia, unspecified affecting right dominant side Hemiplegia Diabetes Home Medications ?Medication ?Instructions ?Recorded ?Last Taken ?Type ammonium lactate 12 % topical cream 1 applic topical BID PRN dry skin 05/05/23 Unknown History atorvastatin 80 mg tablet 80 mg feeding tube QHS CHOLESTEROL 05/05/23 Unknown History carvedilol 25 mg tablet 25 mg feeding tube BID HIGH BLOOD 05/05/23 06/23/23 20:00 History PRESSURE cholecalciferol (vitamin D3) 50 50 mcg feeding tube DAILY VIT D 05/05/23 Unknown History mcg (2,000 unit) capsule DEFICIENCY insulin glargine 100 unit/mL 18 unit subcut QPM DIABETES 05/05/23 Unknown History subcutaneous solution losartan 50 mg tablet 50 mg feeding tube DAILY HIGH 05/05/23 Unknown History BLOOD PRESSURE multivitamin with iron-mineral 1 tab feeding tube DAILY VITAMIN 05/05/23 Unknown History thiamine HCl (vitamin B1) 100 mg 100 mg feeding tube DAILY VITAMIN 05/05/23 Unknown History tablet B DIFICIENCY ondansetron 4 mg disintegrating 4 mg PO Q6H PRN nausea and 05/15/23 Unknown Rx tablet vomiting #10 tabs acetaminophen 500 mg capsule 500 mg feeding tube Q6H PRN pain 06/19/23 Unknown History bisacodyl 10 mg rectal suppository 10 mg [place] DAILY PRN constipation 06/19/23 Unknown History esomeprazole magnesium 40 mg 40 mg PO BID 06/19/23 Unknown History granules delayed release for susp (Nexium Packet) insulin lispro 100 unit/mL 1 sliding scale dose subcut 4X/DAY 06/19/23 Unknown History subcutaneous pen metoclopramide HCl 10 mg tablet 10 mg feeding tube 4X/DAY 08/10/23 Unknown History Allergy/AdvReac Type Severity Reaction Status Date / Time No Known Allergies Allergy Verified 06/24/23 11:36 Surgical History (Updated 06/19/23 @ 15:12 by Chelsi Urbina) History of gastrostomy Social History Smoking Status: Former smoker ROS ROS ED Review of Systems ROS Unobtainable: other Constitutional Constitutional ED: Reports lethargy; Denies chills, fever(s), sweats or weight loss Eyes Eyes: Denies blurry vision, change in vision or diplopia ENT ENT ED: Denies rhinorrhea or sore throat Cardiovascular Cardiovascular: Denies chest pain, orthopnea or racing heartbeat Respiratory/Chest Respiratory/Chest: Denies cough, dyspnea, dyspnea on exertion, orthopnea or sputum Gastrointestinal Gastrointestinal: Reports abdominal pain, nausea, vomiting and other Details: Blood in feeding tube ; Denies diarrhea Genitourinary Genitourinary ED: Denies dysuria, hematuria or urinary frequency Musculoskeletal Musculoskeletal: Denies arthralgias, back pain, myalgias or neck pain Integumentary Denies abscess, Abrasions or rash Neurologic Neurologic: Denies headache(s) or weakness Psychiatric Psychiatric: Denies anxiety, depression or suicidal thoughts Endocrine Endocrinology: Denies polydipsia, polyphagia or polyuria Hematologic/Lymphatic Hematologic/Lymphatic: Denies easy bleeding, easy bruising or lymphadenopathy Allergic/Immunologic Allergic/Immunologic ED: Denies mouth swelling, tongue swelling or urticaria EXAM Physical Exam Const Vital Signs: 08/10/23 10:00 08/10/23 10:05 08/10/23 11:05 Temperature 96.2 F L 96.2 F L 98.9 F Temperature Source Temporal Temporal Temporal Pulse Rate 95 93 78 Respiratory Rate 26 H 26 H 16 Blood Pressure 126/73 H 126/73 H 134/78 H Blood Pressure Mean 90 90 96 Pulse Ox 98 100 98 Oxygen Delivery Method Room Air Room Air Room Air 08/10/23 12:00 Temperature 98.9 F Temperature Source Temporal Pulse Rate 95 Respiratory Rate 16 Blood Pressure 153/80 H Blood Pressure Mean 104 Pulse Ox 99 Oxygen Delivery Method Room Air Positive well nourished and well developed General Appearance ED: well developed and NAD HEENT Reports TM's clear and moist mucous membranes normocephalic and atraumatic; Negative for trauma or tenderness Tympanic Membrane ED: Yes TM's clear Eyes PERRL and EOMs intact bilaterally General Eye ED: Negative for pale conjunctiva or scleral icterus Neck no lymphadenopathy, supple and no JVD General: Negative for tenderness Chest Wall inspection of chest normal and palpation of chest normal Chest: Negative for tenderness Resp normal respiratory effort and clear to auscultation bilaterally Effort and Inspection: Negative for respiratory distress or pain with movement Auscultation: Negative for rhonchi, wheezes or diminished lung sounds Cardio regular rate, regular rhythm, S1 normal heart sound, S2 normal heart sound and no murmurs Peripheral Pulses: pulses 2+ throughout GI normal to inspection, nondistended, normoactive bowel sounds, soft to palpation, non-tender, non-distended and no masses Back/Spine no CVA tenderness and no thoracic nor lumbar tenderness Extremity normal to inspection General Extremety ED: Negative for edema General Extremity: Negative for edema Neuro oriented x3, CN's II-XII intact bilaterally, no sensory deficits noted and gait normal Sensorium / Orientation: awake, alert, oriented to person, oriented to place and oriented to time Motor Exam: strength 5/5 throughout and strength abnormal Psych mental status grossly normal Skin no rashes or lesions noted and no wounds MDM MDM MDM Narrative Medical decision making narrative: Patient presents with abdominal pain and blood from his PEG tube. Poor historian due to history of aphasia related to prior stroke. Some of the history comes from his significant other was with him. IV line established. CBC with differential white count 7.7 with hemoglobin 12.9 platelet count of 221. Chemistries unremarkable. BUN was 29 and creatinine 0.95. Lactate normal at 1.4. Troponin normal. Type and screen ordered. He was given normal saline. He was started on Protonix drip. CT scan of the abdomen pelvis obtained interpreted by radiology as fluid-filled and distended stomach with air-fluid levels. There is a transition point in the distal duodenum as it passes between the aorta and SMA and there may be a nutcracker effect present. Case discussed with his pearl diver Dr. Larios who recommended admission for EGD. Discussed case with hospitalist who will also evaluate patient for admission. I have concerned about possible gastric outlet obstruction related to the nutcracker effect. Patient will be kept on the Protonix. Lab Data Attestation: I reviewed the patient's lab results. Labs: Laboratory Results - last 24 hr 08/10/23 08/10/23 10:15 10:40 WBC 7.7 RBC 4.87 Hgb 12.9 L Hct 41.2 MCV 84.6 MCH 26.5 L MCHC 31.3 L RDW Std Deviation 40.7 RDW Coeff of [place] 13.2 Plt Count 221 MPV 12.7 H Immature Gran % (Auto) 0.300 Neut % (Auto) 58.1 Lymph % (Auto) 34.2 [place] % (Auto) 5.9 Eos % (Auto) 1.0 Baso % (Auto) 0.5 Absolute Neuts (auto) 4.5 Absolute Lymphs (auto) 2.65 Nucleated RBC % 0 Sodium 139 Potassium 3.9 Chloride 102 Carbon Dioxide 32.0 Anion Gap 5 BUN 29 H Creatinine 0.95 Estim Creat Clear Calc 79.59 Est GFR (MDRD) Af Amer 103 Est GFR (MDRD) Non-Af 85 BUN/Creatinine Ratio 30.6 H Glucose 215 H Lactic Acid 1.4 Calcium 9.9 Troponin I High Sens 8 7 Lipase 54 Blood Type O NEGATIVE Antibody Screen NEGATIVE Radiography Diagnostic Testing: Clinical Impression(s) from Imaging Studies Chest X-Ray 08/10/23 10:08 IMPRESSION: No acute pulmonary process Electronically Signed: Jeff Mariano MD at 10:48 EDT , Abdomen/Pelvis CT 08/10/23 10:29 IMPRESSION: Distended stomach containing an air-fluid level with distended proximal half of the duodenum. There is a transition point in the distal duodenum as it passes between the aorta and the SMA, there may be a nutcracker effect present PEG tube noted in the body of the stomach with no CT evidence of complication Simple left renal cyst no specific follow-up needed Dependent bladder calcifications Degenerative bony changes Electronically Signed: Jeff Mariano MD at 11:47 EDT , 1 view chest x-ray obtained interpreted by myself as no evidence of infiltrate or pneumothorax or acute disease process. Radiology in agreement. EKG Initial EKG: Attestation: I personally reviewed and interpreted this EKG as follows: Comments: Sinus rhythm with rate of 92 bpm with occasional PVCs Discharge Plan Triage Chief Complaint: GI Bleed ED Provider: Narcisa Fuentes Dx/Rx/DC Orders Clinical Impression: Abdominal pain, Acute upper GI bleed, Gastric outlet obstruction Prescriptions: No Action ammonium lactate 12 % cream 1 applic topical BID PRN (Reason: dry skin) atorvastatin 80 mg tablet 80 mg feeding tube QHS carvedilol 25 mg tablet 25 mg feeding tube BID cholecalciferol (vitamin D3) 50 mcg (2,000 unit) capsule 50 mcg feeding tube DAILY insulin glargine 100 unit/mL solution 18 unit subcut QPM Rx Instructions: DO NOT HOLD UNLESS APPROVED BY losartan 50 mg tablet 50 mg feeding tube DAILY multivitamin with iron-mineral Tablet 1 tab feeding tube DAILY thiamine HCl (vitamin B1) 100 mg tablet 100 mg feeding tube DAILY ondansetron 4 mg tablet,disintegrating 4 mg PO Q6H PRN (Reason: nausea and vomiting) Qty: 10 0RF Rx Instructions: Zofran for the nausea. You can put it through his feeding tube. acetaminophen 500 mg capsule 500 mg feeding tube Q6H PRN (Reason: pain) bisacodyl 10 mg suppository 10 mg [place] DAILY PRN (Reason: constipation) insulin lispro 100 unit/mL insulin pen 1 sliding scale dose subcut 4X/DAY Protocol: 6. Sliding Scale Insulin Custom Condition: mg/dl range Dose/Route: Number of Units Condition: 150-199 mg/dl = 1 unit Condition: 200-249 mg/dl = 2 unit Condition: 250-299 mg/dl = 3 unit Condition: 300-349 mg/dl = 4 unit Condition: 350-399 mg/dl = 5 unit Condition: 400-449 mg/dl = 6 unit Condition: 450+= 7 units Protocol Text: Custom Sliding Scale esomeprazole magnesium [Nexium Packet] [address] for susp in packet 40 mg PO BID metoclopramide HCl 10 mg tablet 10 mg feeding tube 4X/DAY Primary Care Provider: Juan C Barnes Referrals: Juan C Barnes MD [Primary Care Provider] - Print Language: Setswana Disposition Disposition: Acute Care Hospital [facility]
[2023-08-10 10:34] LABS: Anion Gap 5 (5-15); BUN 29 mg/dL (7-18); BUN/Creat Ratio 30.6 RATIO (10-20); Calcium,Total 9.9 mg/dL (8.5-10.1); Chloride 102 mmol/L (98-107); Creatinine, Serum 0.95 mg/dL (0.70-1.30); EST Glomerular Filtration Rate 85 mL/min (>60); Est Glom Filt Rate - Afr Amer 103 mL/min (>60); Estimated Creatinine Clearance 79.59 ml/min; Glucose 215 mg/dL (74-106); Potassium 3.9 mmol/L (3.5-5.1); Sodium Level 139 mmol/L (136-145)
[2023-08-10 10:42] LABS: Troponin-I HS 8 pg/mL (3.0-78.0)
[2023-08-10] MEDS: 0.9% Normal Saline (1000mL) 1,000 ML 125 ML IV (10:46)
[2023-08-10] MEDS: Ondansetron 4 MG/2 ML Vial IV (10:46)
[2023-08-10 11:08] LABS: Lipase 54 U/L (13-75); Troponin-I HS 7 pg/mL (3.0-78.0)
[2023-08-10] MEDS: Pantoprazole Sodium 80 MG in 0.9% Normal Saline (100mL Bag) 80 ML 10 MG CONT INF (11:11)
[2023-08-10 11:23] LABS: Lactic Acid 1.4 mmol/L (0.4-1.9)
--- NOTE | 2023-08-10 13:01 | NURSING ---
pcu kotskbs upper gi bleed, abd pain, gastric outlet obstruction
--- NOTE | 2023-08-10 15:00 | HP.PCM.HOS_ITS ---
HPI - General General Date of Admission: 08/10/23 HPI Narrative DREA MORLEY, is a 63 M who presents to the hospital from the care home with concerns for GI bleed. He is status post stroke but not on a blood thinner and was complaining of nausea and vomiting and it was noticed that he had some blood in his PEG tube. Hemoglobin here in the ER is 12.9 which is higher than it was on discharge in May when it was 9.4. Guaiac testing in the ER did come back positive gastric fluid. CT of the abdomen and pelvis demonstrated distended stomach especially with a distended first and second portion of the duodenum there is some concern for compression by the SMA. Gastroenterology was notified by the ED physician and will plan on EGD. He was started on PPI ER. He does have a little bit of aphasia but is able to answer some questions in a more yes or no fashion. He denies any abdominal pain currently. [facility] Medical History (Updated 08/10/23 @ 12:[address] 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 Type 2 diabetes mellitus without complications Iron deficiency anemia, unspecified Hyperlipidemia, unspecified Essential (primary) hypertension Cerebral infarction 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 Hemiplegia, unspecified affecting right dominant side Hemiplegia Diabetes Home Medications ?Medication ?Instructions ?Recorded ?Last Taken ?Type ammonium lactate 12 % topical cream 1 applic topical BID PRN dry skin 05/05/23 Unknown History atorvastatin 80 mg tablet 80 mg feeding tube QHS CHOLESTEROL 05/05/23 Unknown History carvedilol 25 mg tablet 25 mg feeding tube BID HIGH BLOOD 05/05/23 06/23/23 20:00 History PRESSURE cholecalciferol (vitamin D3) 50 50 mcg feeding tube DAILY VIT D 05/05/23 Unknown History mcg (2,000 unit) capsule DEFICIENCY insulin glargine 100 unit/mL 18 unit subcut QPM DIABETES 05/05/23 Unknown History subcutaneous solution losartan 50 mg tablet 50 mg feeding tube DAILY HIGH 05/05/23 Unknown History BLOOD PRESSURE multivitamin with iron-mineral 1 tab feeding tube DAILY VITAMIN 05/05/23 Unknown History thiamine HCl (vitamin B1) 100 mg 100 mg feeding tube DAILY VITAMIN 05/05/23 Unknown History tablet B DIFICIENCY ondansetron 4 mg disintegrating 4 mg PO Q6H PRN nausea and 05/15/23 Unknown Rx tablet vomiting #10 tabs acetaminophen 500 mg capsule 500 mg feeding tube Q6H PRN pain 06/19/23 Unknown History bisacodyl 10 mg rectal suppository 10 mg [place] DAILY PRN constipation 06/19/23 Unknown History esomeprazole magnesium 40 mg 40 mg PO BID 06/19/23 Unknown History granules delayed release for susp (Nexium Packet) insulin lispro 100 unit/mL 1 sliding scale dose subcut 4X/DAY 06/19/23 Unknown History subcutaneous pen metoclopramide HCl 10 mg tablet 10 mg feeding tube 4X/DAY 08/10/23 Unknown History Allergy/AdvReac Type Severity Reaction Status Date / Time No Known Allergies Allergy Verified 06/24/23 11:36 Family History (Updated 08/10/23 @ 15:[address] Mau Contreras MD) Other Hypertension Surgical History (Updated 06/19/23 @ 15:12 by Chelsi Urbina) History of gastrostomy Social History Smoking Status: Former smoker ROS Constitutional Constitutional: Denies chills, fatigue, fever(s) or malaise Eyes Eyes: Denies blurry vision ENT HEENT: Denies headache(s) or nasal discharge Cardiovascular Cardiovascular: Denies chest pain, dyspnea on exertion or syncope Respiratory/Chest Respiratory/Chest: Denies cough, shortness of breath at rest or shortness of breath with exertion Gastrointestinal Gastrointestinal: Reports nausea and vomiting; Denies constipation or diarrhea Genitourinary Genitourinary: Denies dysuria Neurologic Neurologic: Denies focal weakness, numbness or tremor(s) Psychiatric Psychiatric: Denies anxiety or depression Vital Signs Vital Signs Vital Signs: 08/10/23 10:00 08/10/23 10:05 08/10/23 11:05 Temperature 96.2 F L 96.2 F L 98.9 F Temperature Source Temporal Temporal Temporal Pulse Rate 95 93 78 Respiratory Rate 26 H 26 H 16 Blood Pressure 126/73 H 126/73 H 134/78 H Blood Pressure Mean 90 90 96 Blood Pressure Source Blood Pressure Position Blood Pressure Location Pulse Ox 98 100 98 Oxygen Delivery Method Room Air Room Air Room Air 08/10/23 12:00 08/10/23 13:00 08/10/23 14:00 Temperature 98.9 F 98.6 F 98.3 F Temperature Source Temporal Temporal Temporal Pulse Rate 95 64 90 Respiratory Rate 16 16 12 Blood Pressure 153/80 H 124/78 H 132/73 H Blood Pressure Mean 104 93 92 Blood Pressure Source Blood Pressure Position Blood Pressure Location Pulse Ox 99 98 98 Oxygen Delivery Method Room Air Room Air Room Air 08/10/23 14:04 08/10/23 14:04 Temperature 98.3 F 98.3 F Temperature Source Temporal Oral Pulse Rate 90 90 Respiratory Rate 14 14 Blood Pressure 132/73 H 132/73 H Blood Pressure Mean 92 92 Blood Pressure Source Monitor Blood Pressure Position Semi-Fowlers Blood Pressure Location Left Arm Pulse Ox 98 98 Oxygen Delivery Method Room Air Room Air Weight Weight: 161 lb 2.526 oz Body Mass Index (BMI) 23.8 Physical Exam Narrative General: Alert, Oriented, Cooperative, No apparent distress HEENT: Atraumatic, PERRLA, EOMI, Normocephalic Oral: Moist Mucosa Neck: Supple, No JVD Lungs: Diminished, Normal air movement, No rhonchi, No wheeze, No rales Cardiovascular: Regular rate, Regular Rhythm, Normal S1, Normal S2, No murmurs Abdomen: Soft, Non Tender, Non-Distended, No Hepato-splenomegaly, PEG tube in place no surrounding redness or bleeding Extremities: No edema, Capillary Refill Less than 3 Seconds Skin: No rashes, No breakdown Musculoskeletal: No Tenderness to Palpation of Joints or Extremities Neurological: Chronic right-sided deficits right upper extremity is contracted towards midline very minimal movement in his right lower extremity Psych/Mental Status: Flat Results Lab / Micro Data 08/10/23 10:15 08/10/23 10:15 Labs: Laboratory Results - last 24 hr 08/10/23 10:15: WBC 7.7, RBC 4.87, Hgb 12.9 L, Hct 41.2, MCV 84.6, MCH 26.5 L, M CHC 31.3 L, RDW Std Deviation 40.7, RDW Coeff of [place] 13.2, Plt Count 221, MPV 12.7 H, Immature Gran % (Auto) 0.300, Neut % (Auto) 58.1, Lymph % (Auto) 34.2, [place] % (Auto) 5.9, Eos % (Auto) 1.0, Baso % (Auto) 0.5, Absolute Neuts (auto) 4.5, Absolute Lymphs (auto) 2.65, Nucleated RBC % 0, Sodium 139, Potassium 3.9, Chloride 102, Carbon Dioxide 32.0, Anion Gap 5, BUN 29 H, Creatinine 0.95, Estim Creat Clear Calc 79.59, Est GFR (MDRD) Af Amer 103, Est GFR (MDRD) Non-Af 85, B UN/Creatinine Ratio 30.6 H, Glucose 215 H, Calcium 9.9, Troponin I High Sens 8 08/10/23 10:40: Lactic Acid 1.4, Troponin I High Sens 7, Lipase 54, Blood Type O NEGATIVE, Antibody Screen NEGATIVE Micro: Microbiology 08/10/23 11:56 Gastric Fluid/Contents Gastric Occult Blood - Final Occult Blood Positive Imaging Radiology Impression Chest X-Ray 08/10/23 10:08 IMPRESSION: No acute pulmonary process Electronically Signed: Jeff Mariano MD at 10:48 EDT , Abdomen/Pelvis CT 08/10/23 10:29 IMPRESSION: Distended stomach containing an air-fluid level with distended proximal half of the duodenum. There is a transition point in the distal duodenum as it passes between the aorta and the SMA, there may be a nutcracker effect present PEG tube noted in the body of the stomach with no CT evidence of complication Simple left renal cyst no specific follow-up needed Dependent bladder calcifications Degenerative bony changes Electronically Signed: Jeff Mariano MD at 11:47 EDT , Assessment & Plan Assessment/Plan (1) Gastric outlet obstruction: (2) Acute upper GI bleed: PLAN: Plan 1. Upper GI bleed with gastric outlet obstruction ? Unclear as to the origin of the gastric outlet obstruction no concern for SMA compression ? Continue with twice daily PPI ? Will place gastrostomy tube to gravity to assist with drainage without having to place an NG tube ? Will hold his home medications ? Will consult gastroenterology for evaluation and an EGD 2. Essential HTN/HLD/history of CVA ? Will hold his home medications ? If necessary can place him on as needed labetalol to control his blood pressure while pending evaluation by GI ? We will monitor make adjustments as necessary 3. DM2 ? Will hold his home insulin ? Will place him on every6 sliding scale insulin with Accu-Cheks ? We will monitor make adjustments as necessary DVT: SCDs 75 minutes was spent on direct patient care, including documentation as well as chart review and collaboration with colleagues Charges/Coding Visit Charges Inpatient E&M: 34406 Init Hosp L3
--- NOTE | 2023-08-10 16:08 | CASEMGMT ---
Social Work As per physician, family would like a different SNF as [facility] was not doing therapy w/pt any longer, and has told family therapy would be $400/day(for one hour, $200 for a half hour). DAGO met w/pt's parents, sister, [id number] and family friend in the room. 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 Pt's mother mentioned a few times that [facility] does not take [facility]. SW explained to pt's mother how [place] benefits work, and that [place] not be involved in payment for SNF, explained that [place] only covers senior living if pt is 70% service connected. Family spoke about possibly making a senior living change due to the therapy. SW explained that the insurance would likely cover therapy only for a couple of weeks no matter where pt goes. DAGO educated pt's family that insurance will stop covering therapy if pt stops making progress, or makes so much progress therapy is not needed. SW said to family it seems that perhaps pt stopped making progress and insurance would not cover anymore. SW did explain we can try again w/[facility] to see if insurance would cover therapy again for a couple of weeks, or we can look at other options. Pt's brother in law seems to have a good understanding of the senior living process and the [place] as he has worked with is own father with the [place] and nursing homes, he reiterated a lot of what SW explained to family. Pt's mother asked about [facility]. DAGO did provide a list via [facility] of alf facilities in network w/pt's insurance, in pt's preferred geographic area, and complete w/quality and resource use data. [facility] is not on the list, SW explained to family we can always check on this on Saturday. SW let them know that DAGO Velazquez will follow up w/them on Saturday to see if they would like new referrals sent, or would like pt to go to [facility] again and try again for insurance to cover therapy. If they choose a different facility, they would likely want to know the out of pocket cost for therapy for when insurance no longer covers. Pt's friend(unclear relationship to family, possibly a caregiver for pt and/or parents--DAGO asked but was not given a clear answer) had multiple questions also for SW regarding whether or not an hour of therapy would be enough for pt. DAGO advised family friend that this is good question for PT/OT or the physician. SW will follow up Saturday to see if family wants to try [facility] again, look into [facility] or another facility. THAI Piedra
[2023-08-10 16:49] LABS: Bedside Glucose 152 mg/dL (74-106)
[2023-08-10 19:14] LABS: Hemoglobin 11.5 g/dL (13.0-16.5)
[2023-08-10] MEDS: 0.9% Normal Saline (1000mL) 1,000 ML 100 ML IV (22:09)
[2023-08-10] MEDS: Pantoprazole Sodium 40 MG in 0.9% Normal Saline (100mL MB+) 100 ML 330 MG IV (22:25)
[2023-08-11 00:33] LABS: Bedside Glucose 130 mg/dL (74-106)
[2023-08-11 03:22] VITALS: BP 114/71; PULSE 91; RESP 18; TEMP 36.9; O2SAT 96
[2023-08-11 06:09] LABS: Absolute Neutrophil Count 2.7 X10^3/uL (2.0-7.7); Basophil# 0.03 X10^3/uL; Basophil% 0.5 % (0-1); Eosinophil# 0.15 X10^3/uL; Eosinophils% 2.5 % (0-5); Hematocrit 33.5 % (40-54); Hemoglobin 10.4 g/dL (13.0-16.5); Lymphocyte % 44.9 % (19-41); Mean Corpuscular Hgb 26.3 pg (27.0-32.0); Mean Corpuscular Volume 84.8 fL (80-94); Monocyte# 0.41 X10^3/uL; Monocyte% 6.8 % (0-10); NRBC Flagged by Analyzer 0 % (0-5); Neutrophil # 2.72 X10^3/uL (2.7-7.7); Neutrophil % 45.1 % (47-70); Platelet Count 197 K/mm3 (150-450); RBC Distribution Width CV 13.2 % (11.6-14.6); RBC Distribution Width SD 41.1 fl (35.1-43.9); Red Blood Count 3.95 M/mm3 (4.6-6.2)
[2023-08-11 06:14] LABS: Bedside Glucose 127 mg/dL (74-106)
[2023-08-11 07:01] LABS: Anion Gap 6 (5-15); BUN 21 mg/dL (7-18); BUN/Creat Ratio 26.8 RATIO (10-20); Calcium,Total 9.1 mg/dL (8.5-10.1); Chloride 112 mmol/L (98-107); Creatinine, Serum 0.78 mg/dL (0.70-1.30); EST Glomerular Filtration Rate 106 mL/min (>60); Est Glom Filt Rate - Afr Amer 128 mL/min (>60); Estimated Creatinine Clearance 96.94 ml/min; Glucose 129 mg/dL (74-106); Potassium 3.5 mmol/L (3.5-5.1); Sodium Level 144 mmol/L (136-145)
--- NOTE | 2023-08-11 09:09 | PN.HOSP_ITS ---
Subjective Subjective Doing well today, feels a bit more comfortable since we are able to drain his stomach by putting his PEG tube to gravity Objective Data Objective Data Vital Signs: Vital Signs Temp Pulse Resp BP Pulse Ox O2 Del Method 98.4 F 91 18 114/71 96 Room Air 08/11/23 03:22 08/11/23 03:22 08/11/23 03:22 08/11/23 03:22 08/11/23 03:22 08/11/23 08:26 Oxygen Delivery Method Room Air Weight: 161 lb 2.526 oz Body Mass Index (BMI) 23.8 Intake & Output: Intake and Output for Last 24 Hours 08/10/23 08/11/23 08/12/23 03:59 03:59 03:59 Intake Total 562.59 / 562.59 Output Total 700 / 700 Balance -137.41 / -137.41 Lab / Micro Data 08/11/23 05:20 08/11/23 05:20 Labs: Laboratory Results - last 24 hr 08/10/23 10:15: WBC 7.7, RBC 4.87, Hgb 12.9 L, Hct 41.2, MCV 84.6, MCH 26.5 L, M CHC 31.3 L, RDW Std Deviation 40.7, RDW Coeff of Warren 13.2, Plt Count 221, MPV 12.7 H, Immature Gran % (Auto) 0.300, Neut % (Auto) 58.1, Lymph % (Auto) 34.2, [place] % (Auto) 5.9, Eos % (Auto) 1.0, Baso % (Auto) 0.5, Absolute Neuts (auto) 4.5, Absolute Lymphs (auto) 2.65, Nucleated RBC % 0, Sodium 139, Potassium 3.9, Chloride 102, Carbon Dioxide 32.0, Anion Gap 5, BUN 29 H, Creatinine 0.95, Estim Creat Clear Calc 79.59, Est GFR (MDRD) Af Amer 103, Est GFR (MDRD) Non-Af 85, B UN/Creatinine Ratio 30.6 H, Glucose 215 H, Calcium 9.9, Troponin I High Sens 8 08/10/23 10:40: Lactic Acid 1.4, Troponin I High Sens 7, Lipase 54, Blood Type O NEGATIVE, Antibody Screen NEGATIVE 08/10/23 16:27: POC Glucose 152 H 08/10/23 19:03: Hgb 11.5 L, Hct 36.0 L 08/11/23 00:12: POC Glucose 130 H 08/11/23 05:20: WBC 6.0, RBC 3.95 L, Hgb 10.4 L, Hct 33.5 L, MCV 84.8, MCH 26.3 L, MCHC 31.0 L, RDW Std Deviation 41.1, RDW Coeff of [place] 13.2, Plt Count 197, MPV 12.0, Immature Gran % (Auto) 0.200, Neut % (Auto) 45.1 L, Lymph % (Auto) 44.9 H, [place] % (Auto) 6.8, Eos % (Auto) 2.5, Baso % (Auto) 0.5, Absolute Neuts (auto) 2.7, Absolute Lymphs (auto) 2.70, Nucleated RBC % 0, Sodium 144, Potassium 3.5, Chloride 112 H, Carbon Dioxide 26.0, Anion Gap 6, BUN 21 H, Creatinine 0.78, Estim Creat Clear Calc 96.94, Est GFR (MDRD) Af Amer 128, Est GFR (MDRD) Non-Af 106, BUN/Creatinine Ratio 26.8 H, Glucose 129 H, Calcium 9.1 08/11/23 05:53: POC Glucose 127 H Micro: Microbiology 08/10/23 11:56 Gastric Fluid/Contents Gastric Occult Blood - Final Occult Blood Positive Radiography Diagnostic Testing: Radiology Impression Chest X-Ray 08/10/23 10:08 IMPRESSION: No acute pulmonary process Electronically Signed: Jeff Mariano MD at 10:48 EDT , Abdomen/Pelvis CT 08/10/23 10:29 IMPRESSION: Distended stomach containing an air-fluid level with distended proximal half of the duodenum. There is a transition point in the distal duodenum as it passes between the aorta and the SMA, there may be a nutcracker effect present PEG tube noted in the body of the stomach with no CT evidence of complication Simple left renal cyst no specific follow-up needed Dependent bladder calcifications Degenerative bony changes Electronically Signed: Jeff Mariano MD at 11:47 EDT , Physical Exam Narrative General: Alert, Oriented, Cooperative, No apparent distress HEENT: Atraumatic, PERRLA, EOMI, Normocephalic Oral: Moist Mucosa Neck: Supple, No JVD Lungs: Diminished, Normal air movement, No rhonchi, No wheeze, No rales Cardiovascular: Regular rate, Regular Rhythm, Normal S1, Normal S2, No murmurs Abdomen: Soft, Non Tender, Non-Distended, No Hepato-splenomegaly, PEG tube in place no surrounding redness or bleeding, with a Hubbard bag hanging to gravity Extremities: No edema, Capillary Refill Less than 3 Seconds Skin: No rashes, No breakdown Musculoskeletal: No Tenderness to Palpation of Joints or Extremities Neurological: Chronic right-sided deficits right upper extremity is contracted towards midline very minimal movement in his right lower extremity Psych/Mental Status: Flat Assessment & Plan Assessment/Plan (1) Gastric outlet obstruction: (2) Acute upper GI bleed: PLAN: Plan 1. Upper GI bleed with gastric outlet obstruction ? Unclear as to the origin of the gastric outlet obstruction with concern for SMA compression ? Continue with twice daily PPI ? Will place gastrostomy tube to gravity, he has had approximately a liter of coffee-ground liquid output ? Will hold his home medications ? Will consult gastroenterology for evaluation and an EGD 2. Essential HTN/HLD/history of CVA ? Will hold his home medications ? If necessary can place him on as needed labetalol to control his blood pressure while pending evaluation by GI ? We will monitor make adjustments as necessary 3. DM2 ? Will hold his home insulin ? Will place him on every6 sliding scale insulin with Accu-Cheks ? We will monitor make adjustments as necessary DVT: SCDs Charges/Coding Visit Charges Inpatient E&M: 47031 Subs Hosp L2
[2023-08-11] MEDS: Pantoprazole Sodium 40 MG in 0.9% Normal Saline (100mL MB+) 100 ML 330 MG IV ×2 (09:10→21:00)
[2023-08-11] MEDS: 0.9% Normal Saline (1000mL) 1,000 ML 100 ML IV ×2 (09:10→21:01)
[2023-08-11 09:20] VITALS: BP 106/72; PULSE 89; RESP 18; TEMP 36.8; O2SAT 97
[2023-08-11 12:30] LABS: Bedside Glucose 143 mg/dL (74-106)
[2023-08-11 14:52] VITALS: BP 114/62; PULSE 84; RESP 18; TEMP 36.6; O2SAT 97
--- NOTE | 2023-08-11 16:21 | CON.PCM.GI_ITS ---
HPI Consult Data Date of Consult: 08/11/23 HPI Narrative Reason for Consultation: GI bleed HPI Narrative: DREA MORLEY, is a 63 M who presents via EMS from long-term with concern for blood in his feeding tube and vomiting. Patient has had prior stroke and does have some expressive aphasia but will answer yes/no questions. He denies any chest pain. He does admit to abdominal pain. He admits to vomiting that started this morning and abdominal pain that started this morning. Denies being on blood thinners. Patient with prior gastrostomy. No history of ulcers. CT scan of the abdomen and pelvis: Distended stomach containing an air-fluid level with distended proximal half of the duodenum. There is a transition point in the distal duodenum as it passes between the aorta and the SMA, there may be a nutcracker effect present PEG tube noted in the body of the stomach with no CT evidence of complication He had an upper endoscopy on 06/24/2023 and it displayed: Findings: The examined esophagus was normal. The Z-line was irregular and was found 39 cm from the incisors. Biopsies were taken with a cold forceps for histology. Verification of patient identification for the specimen was done. Estimated blood loss was minimal. There was evidence of an intact gastrostomy with a patent G-tube present in the gastric body. This was characterized by healthy appearing mucosa. No gross lesions were noted in the first portion of the duodenum. Impression: - Normal esophagus. - Z-line irregular, 39 cm from the incisors. Biopsied. - Intact gastrostomy with a patent G-tube present characterized by healthy appearing mucosa. - No gross lesions in the first portion of the duodenum. [facility] Medical History (Updated 08/10/23 @ 12:[address] 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 Type 2 diabetes mellitus without complications Iron deficiency anemia, unspecified Hyperlipidemia, unspecified Essential (primary) hypertension Cerebral infarction 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 Hemiplegia, unspecified affecting right dominant side Hemiplegia Diabetes Home Medications ?Medication ?Instructions ?Recorded ?Last Taken ?Type ammonium lactate 12 % topical cream 1 applic topical BID PRN dry skin 05/05/23 Unknown History atorvastatin 80 mg tablet 80 mg feeding tube QHS CHOLESTEROL 05/05/23 Unknown History carvedilol 25 mg tablet 25 mg feeding tube BID HIGH BLOOD 05/05/23 06/23/23 20:00 History PRESSURE cholecalciferol (vitamin D3) 50 50 mcg feeding tube DAILY VIT D 05/05/23 Unknown History mcg (2,000 unit) capsule DEFICIENCY insulin glargine 100 unit/mL 18 unit subcut QPM DIABETES 05/05/23 Unknown History subcutaneous solution losartan 50 mg tablet 50 mg feeding tube DAILY HIGH 05/05/23 Unknown History BLOOD PRESSURE multivitamin with iron-mineral 1 tab feeding tube DAILY VITAMIN 05/05/23 Unknown History thiamine HCl (vitamin B1) 100 mg 100 mg feeding tube DAILY VITAMIN 05/05/23 Unknown History tablet B DIFICIENCY ondansetron 4 mg disintegrating 4 mg PO Q6H PRN nausea and 05/15/23 Unknown Rx tablet vomiting #10 tabs acetaminophen 500 mg capsule 500 mg feeding tube Q6H PRN pain 06/19/23 Unknown History bisacodyl 10 mg rectal suppository 10 mg [place] DAILY PRN constipation 06/19/23 Unknown History esomeprazole magnesium 40 mg 40 mg PO BID 06/19/23 Unknown History granules delayed release for susp (Nexium Packet) insulin lispro 100 unit/mL 1 sliding scale dose subcut 4X/DAY 06/19/23 Unknown History subcutaneous pen metoclopramide HCl 10 mg tablet 10 mg feeding tube 4X/DAY 08/10/23 Unknown History Allergy/AdvReac Type Severity Reaction Status Date / Time No Known Allergies Allergy Verified 06/24/23 11:36 Family History (Updated 08/10/23 @ 15:[address] Mau Contreras MD) Other Hypertension Surgical History (Updated 06/19/23 @ 15:12 by Chelsi Urbina) History of gastrostomy Social History Smoking Status: Former smoker ROS Constitutional Constitutional: Denies chills, fatigue, fever(s) or malaise Eyes Eyes: Denies blurry vision ENT HEENT: Denies headache(s) or nasal discharge Cardiovascular Cardiovascular: Denies chest pain, dyspnea on exertion or syncope Respiratory/Chest Respiratory/Chest: Denies cough, shortness of breath at rest or shortness of breath with exertion Gastrointestinal Gastrointestinal: Reports nausea and vomiting; Denies constipation or diarrhea Genitourinary Genitourinary: Denies dysuria Neurologic Neurologic: Denies focal weakness, numbness or tremor(s) Psychiatric Psychiatric: Denies anxiety or depression Physical Exam Narrative General: Alert, Oriented, Cooperative, No apparent distress HEENT: Atraumatic, PERRLA, EOMI, Normocephalic Oral: Moist Mucosa Neck: Supple, No JVD Lungs: Diminished, Normal air movement, No rhonchi, No wheeze, No rales Cardiovascular: Regular rate, Regular Rhythm, Normal S1, Normal S2, No murmurs Abdomen: Soft, Non Tender, Non-Distended, No Hepato-splenomegaly, PEG tube in place no surrounding redness or bleeding, with a Hubbard bag hanging to gravity Extremities: No edema, Capillary Refill Less than 3 Seconds Skin: No rashes, No breakdown Musculoskeletal: No Tenderness to Palpation of Joints or Extremities Neurological: Chronic right-sided deficits right upper extremity is contracted towards midline very minimal movement in his right lower extremity Psych/Mental Status: Flat Lab / Micro Data 08/11/23 05:20 08/11/23 05:20 Labs: Laboratory Results - last 24 hr 08/10/23 16:27: POC Glucose 152 H 08/10/23 19:03: Hgb 11.5 L, Hct 36.0 L 08/11/23 00:12: POC Glucose 130 H 08/11/23 05:20: WBC 6.0, RBC 3.95 L, Hgb 10.4 L, Hct 33.5 L, MCV 84.8, MCH 26.3 L, MCHC 31.0 L, RDW Std Deviation 41.1, RDW Coeff of [place] 13.2, Plt Count 197, MPV 12.0, Immature Gran % (Auto) 0.200, Neut % (Auto) 45.1 L, Lymph % (Auto) 44.9 H, [place] % (Auto) 6.8, Eos % (Auto) 2.5, Baso % (Auto) 0.5, Absolute Neuts (auto) 2.7, Absolute Lymphs (auto) 2.70, Nucleated RBC % 0, Sodium 144, Potassium 3.5, Chloride 112 H, Carbon Dioxide 26.0, Anion Gap 6, BUN 21 H, Creatinine 0.78, Estim Creat Clear Calc 96.94, Est GFR (MDRD) Af Amer 128, Est GFR (MDRD) Non-Af 106, BUN/Creatinine Ratio 26.8 H, Glucose 129 H, Calcium 9.1 08/11/23 05:53: POC Glucose 127 H 08/11/23 11:14: POC Glucose 143 H Assessment & Plan Assessment/Plan (1) Acute hypoxemic respiratory failure: (2) Pneumonia: PLAN: Plan 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 He likely has oropharyngeal dysphagia also. He did have some hematemesis that is possibly secondary to erosive esophagitis ,tube feedings, and gastric outlet obstruction or underlying gastroparesis from PEG tube placement. Not through the esophagus particularly if he is not at a 90 degree angle. Recommendations to evaluate his upper GI tract. 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 He will have an ASA of 3. Code status: full code- unverified. Patient unable to communicate, but per ED doctor he spoke to patient's mother who wanted him to be full code. 05/08/23-EGD findings : -LA Grade D (one or more mucosal breaks involving at least 75% of esophageal circumference) esophagitis with bleeding was found 34 to 39 cm from the incisors. Biopsies for histology were taken with a cold forceps for evaluation of celiac disease. Verification of patient identification for the specimen was done. Estimated blood loss was minimal. Coagulation for hemostasis using monopolar probe was successful. Estimated blood loss was minimal. There was evidence of an intact gastrostomy with a patent G-tube present in the gastric body. This was characterized by healthy appearing mucosa. No gross lesions were noted in the duodenal bulb. Charges/Coding Visit Charges Inpatient E&M: 59623 Init Hosp L3
[2023-08-11 18:04] LABS: Bedside Glucose 122 mg/dL (74-106)
[2023-08-11 19:22] LABS: Hematocrit 31.6 % (40-54); Hemoglobin 9.7 g/dL (13.0-16.5)
[2023-08-11 20:55] VITALS: BP 137/71; PULSE 88; RESP 18; TEMP 37.1; O2SAT 100
[2023-08-12] VITALS (8 sets, daily range): BP systolic 115–147; BP diastolic 59–83; PULSE 88–96; RESP 16–20; TEMP 36.2–37.1; O2SAT 95–100
--- NOTE | 2023-08-12 | EGD_PTH ---
PATIENT: DREA MORLEY LOC: [facility] U#:[id number] AGE/SX: 63/M ROOM: [facility] RE08/10/[address]: Dr. Tommy Batista DO : 1960 BED: 1 DIS: 08/17/2023 SPEC #: [id number] RECD: 08/12/23 11:34 STATUS: RIYA REElvira #: [id number] ROSE MARY: 08/12/23 00:[address]: Ryan Larios DEPT: SURGICAL PATHOLOGY RECD BY: Martha Gonzales ENTERED: 08/12/23 13:05 SP TYPE: EGD BIOPSY OTHR DR: DO Dr. Mau Lucia MD Dr. Paul Nielsen, MD Tissues: Duodenum, NOS Procedures: Surgery Specimen Level IV Comments: @ Ordering doctor for SUIV edited from to @ asher ALICEA at 08/12/23 1345 @ Submitting doctor edited from to @ asher ALICEA at 08/12/23 1345 HEADER OPERATION: EGD with biopsy, electrohemostasis PRE-OP DIAGNOSIS: GI bleed TISSUE SUBMITTED: Duodenal ulcer biopsy MICROSCOPIC DIAGNOSIS Duodenal ulcer, biopsy: Fragments of small intestinal mucosa with mild non-specific chronic inflammation, congestion and hemorrhage. TONNY/ 08/13/2023 MICROSCOPIC DESCRIPTION Slides are reviewed. GROSS DESCRIPTION Received in fixative is one container labeled with the patient's name and designated Duodenal ulcer biopsy. The specimen consists of multiple irregular fragments of light parker soft tissue that in aggregate measure 1.0 x 0.3 x 0.1 cm. The specimen is totally submitted in one cassette. TNONY/ 08/12/2023 TC:3 CPT:02076
[2023-08-12 00:13] LABS: Bedside Glucose 98 mg/dL (74-106)
[2023-08-12 05:31] LABS: Absolute Lymphocyte Count 2.62 X10^3/uL (0.83-4.51); Absolute Neutrophil Count 1.8 X10^3/uL (2.0-7.7); Basophil# 0.05 X10^3/uL; Eosinophil# 0.14 X10^3/uL; Eosinophils% 2.9 % (0-5); Hematocrit 31.1 % (40-54); Hemoglobin 9.5 g/dL (13.0-16.5); Lymphocyte # 2.62 X10^3/ul (0.83-4.51); Lymphocyte % 53.7 % (19-41); Mean Corp Hgb Conc 30.5 g/dL (32-36); Mean Corpuscular Hgb 26.5 pg (27.0-32.0); Mean Corpuscular Volume 86.9 fL (80-94); Mean Platelet Vol. 11.9 fl (6.2-12.0); Monocyte# 0.28 X10^3/uL; Monocyte% 5.7 % (0-10); NRBC Flagged by Analyzer 0 % (0-5); Neutrophil # 1.78 X10^3/uL (2.7-7.7); Neutrophil % 36.5 % (47-70); Platelet Count 194 K/mm3 (150-450); RBC Distribution Width CV 13.3 % (11.6-14.6); RBC Distribution Width SD 42.2 fl (35.1-43.9); Red Blood Count 3.58 M/mm3 (4.6-6.2); White Blood Count 4.9 K/mm3 (4.4-11.0)
[2023-08-12 06:18] LABS: Bedside Glucose 100 mg/dL (74-106)
[2023-08-12] MEDS: 0.9% Normal Saline (1000mL) 1,000 ML 100 ML IV (06:47)
[2023-08-12 06:52] LABS: Anion Gap 7 (5-15); BUN 17 mg/dL (7-18); BUN/Creat Ratio 23.8 RATIO (10-20); Calcium,Total 9.1 mg/dL (8.5-10.1); Chloride 117 mmol/L (98-107); Creatinine, Serum 0.71 mg/dL (0.70-1.30); EST Glomerular Filtration Rate 118 mL/min (>60); Est Glom Filt Rate - Afr Amer 143 mL/min (>60); Estimated Creatinine Clearance 106.49 ml/min; Glucose 106 mg/dL (74-106); Potassium 3.4 mmol/L (3.5-5.1); Sodium Level 146 mmol/L (136-145)
[2023-08-12 07:36] LABS: International Normalized Ratio 1.2; Prothrombin Time (Protime)PT. 15.3 SECONDS (11.7-14.9)
[2023-08-12 07:37] LABS: Partial Thromboplast Time 26.9 Seconds (24.1-36.2)
--- NOTE | 2023-08-12 09:07 | OP.CCLET_ITS ---
08/12/2023 Juan C Barnse MD [address] [id number] Re : Upper GI endoscopy procedure for Ata Min Dear Dr. Barnes This procedure was performed on Saturday, August 12, 2023. My impressions and recommendations are as follows: Impressions : - Normal esophagus. - Intact gastrostomy with a patent G-tube present characterized by healthy appearing mucosa. - Non-bleeding duodenal ulcer with no stigmata of bleeding. Biopsied. - Oozing duodenal ulcer with pigmented material. Treated with a heater probe. Clip was placed. 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 Recommendations : - Return patient to hospital phan for ongoing care. - Resume previous diet. - Continue present medications. My findings are described in the full procedure note, which is enclosed. If I can be of further assistance, please feel free to contact me at . Sincerely, Ryan Friend, 08/12/2023 9:07:27 AM This report has been signed electronically.
--- NOTE | 2023-08-12 09:07 | OP.EGD_ITS ---
Patient Name: Ata Copeland Procedure Date: 08/12/2023 8:32 AM Date of : 1960 Age: 63 Procedure: Upper GI endoscopy Indications: Epigastric abdominal pain, Hematemesis Providers: Ryan Larios DO Medicines: Monitored Anesthesia Care Patient Profile: This is a 63 year old male. Refer to note in patient chart for documentation of history and physical. Patient has symptoms of acute epigastric abdominal pain, acute dyspepsia and acute vomiting. Complications: No immediate complications. Procedure: Pre-Anesthesia Assessment: - Prior to the procedure, a History and Physical was performed, and patient medications and allergies were reviewed. The patient is competent. The risks and benefits of the procedure and the sedation options and risks were discussed with the patient. All questions were answered and informed consent was obtained. Patient identification and proposed procedure were verified by the physician in the pre-procedure area. Mental Status Examination: alert and oriented. Airway Examination: normal oropharyngeal airway and neck mobility. Respiratory Examination: clear to auscultation. CV Examination: normal. Prophylactic Antibiotics: The patient does not require prophylactic antibiotics. Prior Anticoagulants: The patient has taken no anticoagulant or antiplatelet agents. ASA Grade Assessment: III - A patient with severe systemic disease. After reviewing the risks and benefits, the patient was deemed in satisfactory condition to undergo the procedure. The anesthesia plan was to use monitored anesthesia care (MAC). Immediately prior to administration of medications, the patient was re-assessed for adequacy to receive sedatives. The heart rate, respiratory rate, oxygen saturations, blood pressure, adequacy of pulmonary ventilation, and response to care were monitored throughout the procedure. The physical status of the patient was re-assessed after the procedure. After obtaining informed consent, the endoscope was passed under direct vision. Throughout the procedure, the patient's blood pressure, pulse, and oxygen saturations were monitored continuously. The colonoscope was introduced through the mouth, and advanced to the second part of duodenum. The upper GI endoscopy was accomplished without difficulty. The patient tolerated the procedure well. Scope In: 8:51:40 AM Scope Out: 9:00:53 AM Total Procedure Duration Time 0 hours 9 minutes 13 seconds Findings: The examined esophagus was normal. There was evidence of an intact gastrostomy with a patent G-tube present on the greater curvature of the stomach. This was characterized by healthy appearing mucosa. One non-bleeding linear duodenal ulcer with no stigmata of bleeding was found in the second portion of the duodenum. The lesion was 3 mm in largest dimension. Biopsies were taken with a cold forceps for histology. Verification of patient identification for the specimen was done. Estimated blood loss was minimal. One oozing linear duodenal ulcer with pigmented material was found in the second portion of the duodenum. The lesion was 8 mm in largest dimension. Coagulation for hemostasis using heater probe was successful. For location marking, one hemostatic clip was successfully placed. 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 There was no bleeding at the end of the procedure. Impression: - Normal esophagus. - Intact gastrostomy with a patent G-tube present characterized by healthy appearing mucosa. - Non-bleeding duodenal ulcer with no stigmata of bleeding. Biopsied. - Oozing duodenal ulcer with pigmented material. Treated with a heater probe. Clip was placed. 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 Recommendation: - Return patient to hospital phan for ongoing care. - Resume previous diet. - Continue present medications. Procedure Code(s): --- Professional --- 09465, 59, Esophagogastroduodenoscopy, flexible, transoral; with control of bleeding, any method 13024, 51, Esophagogastroduodenoscopy, flexible, transoral; with biopsy, single or multiple 55078, Unlisted procedure, small intestine CPT copyright 2021 [employer]. All rights reserved. The codes documented in this report are preliminary and upon emery wheel molder review may be revised to meet current compliance requirements. Ryan Larios DO 08/12/2023 9:07:27 AM This report has been signed electronically. Number of Addenda: 0 Note Initiated On: 08/12/2023 8:32 AM
[2023-08-12 09:45] LABS: Hemoglobin A1c 5.4 % (3.8-5.6)
[2023-08-12 12:19] LABS: Bedside Glucose 119 mg/dL (74-106)
--- NOTE | 2023-08-12 16:54 | CASEMGMT ---
Advance Directive Validation Upon admission to [facility] patient answered no to any advance directives and declined any further information for such. Patient's parents are both still living, and are reported as patient' next of kin. -CANDIDA Moreira
[2023-08-12] MEDS: Jevity 1.5 1,000 ML 20 ML GT (17:48)
[2023-08-12 17:52] LABS: Bedside Glucose 102 mg/dL (74-106)
[2023-08-12] MEDS: Lansoprazole 15 MG Capsule.DR 30 MG GT ×2 (17:52→22:36)
--- NOTE | 2023-08-12 17:54 | PCM.PN.HOSP ---
Reason for Visit Reason for Visit: Diagnoses Pneumonia, unspecified organism (08/10/23) Acute respiratory failure with hypoxia (08/10/23) Adult hypertrophic pyloric stenosis (08/10/23) Gastrointestinal hemorrhage, unspecified (08/10/23) Subjective Subjective Patient was seen and examined today, he did not carry on a conversation with this examiner. Patient had an EGD today which showed a nonbleeding duodenal ulcer with no stigmata of bleeding, there is also noted to be oozing duodenal ulcer with pigmented material. Treatment was instituted with a heater probe and a clip was placed. I talked briefly to gastroenterology who stated that the patient could resume tube feeds, we do not have a recommendation from dietary however as to which tube feed to institute. For now, I have elected to give the patient fluids through his PEG tube, IV access was lost today and I elected to leave the IV out today and convert some of the meds down the PEG tube. Objective Data Objective Data Vital Signs: Vital Signs Temp Pulse Resp BP Pulse Ox O2 Del Method 98.6 F 89 16 146/72 H 100 Room Air 08/12/23 15:44 08/12/23 15:44 08/12/23 15:44 08/12/23 15:44 08/12/23 15:44 08/12/23 15:44 Oxygen Delivery Method Room Air Weight: 73.1 kg Body Mass Index (BMI) 23.8 Intake & Output: Intake and Output for Last 24 Hours 08/10/23 08/11/23 08/12/23 23:59 23:59 23:59 Intake Total 562.59 / 562.59 2460.00 / 2460.00 1378.34 / 1378.34 Output Total 700 / 700 100 / 100 Balance -137.41 / -137.41 2360.00 / 2360.00 1378.34 / 1378.34 Lab / Micro Data 08/12/23 04:40 08/12/23 04:40 Labs: Laboratory Results - last 24 hr 08/11/23 17:46: POC Glucose 122 H 08/11/23 19:05: Hgb 9.7 L, Hct 31.6 L 08/11/23 23:52: POC Glucose 98 08/12/23 04:40: WBC 4.9, RBC 3.58 L, Hgb 9.5 L, Hct 31.1 L, MCV 86.9, MCH 26.5 L, MCHC 30.5 L, RDW Std Deviation 42.2, RDW Coeff of Warren 13.3, Plt Count 194, MPV 11.9, Immature Gran % (Auto) 0.200, Neut % (Auto) 36.5 L, Lymph % (Auto) 53.7 H, [place] % (Auto) 5.7, Eos % (Auto) 2.9, Baso % (Auto) 1.0, Absolute Neuts (auto) 1.8 L, Absolute Lymphs (auto) 2.62, Nucleated RBC % 0, Sodium 146 H, Potassium 3.4 L, Chloride 117 H, Carbon Dioxide 22.0, Anion Gap 7, BUN 17, Creatinine 0.71, Estim Creat Clear Calc 106.49, Est GFR (MDRD) Af Amer 143, Est GFR (MDRD) Non-Af 118, BUN/Creatinine Ratio 23.8 H, Glucose 106, Hemoglobin A1c 5.4, Calcium 9.1 08/12/23 05:59: POC Glucose 100 08/12/23 06:12: PT 15.3 H, INR 1.2, APTT 26.9 08/12/23 11:56: POC Glucose 119 H 08/12/23 17:33: POC Glucose 102 Micro: Microbiology 08/10/23 11:56 Gastric Fluid/Contents Gastric Occult Blood - Final Occult Blood Positive Physical Exam Narrative Patient is nonverbal, he is resting quietly HEENT head/scalp atraumatic Head and Scalp: normocephalic Eyes conjunctivae normal Neck no JVD Resp normal respiratory effort, no retractions, no use of accessory muscles and clear to auscultation bilaterally Cardio regular rate, regular rhythm, S1 normal heart sound and S2 normal heart sound GI normal to inspection, nondistended, normoactive bowel sounds GI Narrative: Patient has PEG tube in place Extremity no clubbing, cyanosis or edema Neuro Neuro Narrative: Patient is nonverbal to this examiner, patient has right hemiplegia Psych Psych Narrative: Patient has flat affect Assessment & Plan Assessment/Plan (1) Acute upper GI bleed: PLAN: Plan 1. 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 at this time, again tube feeds may be reinstituted tomorrow #6 chronic debility secondary to cerebrovascular disease-patient's family has requested the patient be discharged to a different snf facility, plans are underway to locate one for the patient. Total clinical time spent by myself addressing the patient's medical issues, reviewing all of his data, and collaborating with patient's care team: 35 minutes Charges/Coding Visit Charges Inpatient E&M: 19187 Subs Hosp L2
[2023-08-12 18:07] LABS: Magnesium 1.8 mg/dL (1.6-2.6)
--- NOTE | 2023-08-12 18:43 | CASEMGMT ---
Social Work Followed up with patient's mother via phone regarding discharge planning for this patient. At this point family is still wants patient to go to a different nursing facility but has not yet considered any other alternatives other than interested [facility]. This show card writer asked though mother to please review chart and determine additional choices. The mother reportedly called this show card writer later today or in the morning with choices. This show card writer spoke with Lo at [facility] regarding patient's particular insurance. She and reports [facility]. Based on this facility being the facility of choice and interest, this show card writer made referral via care port. Message left for the patient's mother with update. Plan: Referral pending at [facility]. -THAI Moreira, SPA THERAPIST *This note was generated with shopp dictation software. It may contain incorrect words, spelling, and punctuation that were not noted in review of the chart prior to signing*
[2023-08-13 00:30] LABS: Bedside Glucose 156 mg/dL (74-106)
[2023-08-13 04:55] VITALS: BP 133/66; PULSE 88; RESP 16; TEMP 36.9; O2SAT 98
[2023-08-13 05:54] LABS: Hematocrit 29.6 % (40-54)
[2023-08-13] MEDS: Insulin Lispro 100 UNIT/ML INSULN.PEN SC ×4 (06:14→22:22)
[2023-08-13 06:50] LABS: Anion Gap 6 (5-15); BUN 12 mg/dL (7-18); BUN/Creat Ratio 16.9 RATIO (10-20); Calcium,Total 9.1 mg/dL (8.5-10.1); Chloride 116 mmol/L (98-107); Creatinine, Serum 0.71 mg/dL (0.70-1.30); EST Glomerular Filtration Rate 119 mL/min (>60); Est Glom Filt Rate - Afr Amer 144 mL/min (>60); Estimated Creatinine Clearance 106.49 ml/min; Glucose 164 mg/dL (74-106); Potassium 3.3 mmol/L (3.5-5.1); Sodium Level 146 mmol/L (136-145)
[2023-08-13 06:59] LABS: Bedside Glucose 173 mg/dL (74-106)
[2023-08-13 08:27] VITALS: BP 121/69; PULSE 78; RESP 16; TEMP 37.1; O2SAT 100
[2023-08-13 11:41] LABS: Bedside Glucose 240 mg/dL (74-106)
[2023-08-13] MEDS: Potassium Chloride Oral Soln 20 MEQ/15 ML UDC 40 MEQ GT (12:09)
[2023-08-13] MEDS: Lansoprazole 15 MG Capsule.DR 30 MG GT ×2 (12:09→22:17)
[2023-08-13 16:14] LABS: Bedside Glucose 178 mg/dL (74-106)
--- NOTE | 2023-08-13 16:43 | PN.HOSP_ITS ---
Reason for Visit Reason for Visit: Diagnoses Pneumonia, unspecified organism (08/10/23) Acute respiratory failure with hypoxia (08/10/23) Adult hypertrophic pyloric stenosis (08/10/23) Gastrointestinal hemorrhage, unspecified (08/10/23) Subjective Subjective Patient was seen and examined today, he is nonverbal to this examiner, he does not appear to be in any distress, his tube feeds were restarted yesterday and I talked to dietary today concerning oral intake, they will talk with speech therapy to verify if the patient can have oral intake. Patient's flushes were adjusted today by nutritional services. Objective Data Objective Data Vital Signs: Vital Signs Temp Pulse Resp BP Pulse Ox O2 Del Method 98.8 F 78 16 121/69 H 100 Room Air 08/13/23 08:27 08/13/23 08:27 08/13/23 08:27 08/13/23 08:27 08/13/23 08:27 08/13/23 09:55 Oxygen Delivery Method Room Air Weight: 73.1 kg Body Mass Index (BMI) 23.8 Intake & Output: Intake and Output for Last 24 Hours 08/11/23 08/12/23 08/13/23 23:59 23:59 23:59 Intake Total 2460.00 / 2460.00 1508.34 / 1508.34 574.83 / 574.83 Output Total 100 / 100 Balance 2360.00 / 2360.00 1508.34 / 1508.34 574.83 / 574.83 Lab / Micro Data 08/13/23 05:11 08/13/23 05:11 Labs: Laboratory Results - last 24 hr 08/12/23 04:40: Magnesium 1.8 08/12/23 17:33: POC Glucose 102 08/13/23 00:09: POC Glucose 156 H 08/13/23 05:11: Hgb 9.0 L, Hct 29.6 L, Sodium 146 H, Potassium 3.3 L, Chloride 116 H, Carbon Dioxide 24.0, Anion Gap 6, BUN 12, Creatinine 0.71, Estim Creat Clear Calc 106.49, Est GFR (MDRD) Af Amer 144, Est GFR (MDRD) Non-Af 119, BUN/Creatinine Ratio 16.9, Glucose 164 H, Calcium 9.1 08/13/23 06:11: POC Glucose 173 H 08/13/23 11:23: POC Glucose 240 H 08/13/23 15:53: POC Glucose 178 H Micro: Microbiology 08/10/23 11:56 Gastric Fluid/Contents Gastric Occult Blood - Final Occult Blood Positive Physical Exam Narrative Patient is nonverbal, he is resting quietly HEENT head/scalp atraumatic Head and Scalp: normocephalic Eyes conjunctivae normal Neck no JVD Resp normal respiratory effort, no retractions, no use of accessory muscles and clear to auscultation bilaterally Cardio regular rate, regular rhythm, S1 normal heart sound and S2 normal heart sound GI normal to inspection, nondistended, normoactive bowel sounds GI Narrative: Patient has PEG tube in place Extremity no clubbing, cyanosis or edema Neuro Neuro Narrative: Patient is nonverbal to this examiner, patient has right hemiplegia Psych Psych Narrative: Patient has flat affect Assessment & Plan Assessment/Plan (1) Acute upper GI bleed: PLAN: Plan 1. 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 at this time, speech therapy has recommended a modified barium swallow, tube feeds will be continued at this time #6 chronic debility secondary to cerebrovascular disease-patient's family has requested the patient be discharged to a different jail facility, plans are underway to locate one for the patient. Total clinical time spent by myself addressing the patient's medical issues, reviewing all of his data, and collaborating with patient's care team: 35 minutes Charges/Coding Visit Charges Inpatient E&M: 33961 Subs Hosp L2
[2023-08-13 16:47] VITALS: BP 149/72; PULSE 69; RESP 16; TEMP 36.7; O2SAT 98
--- NOTE | 2023-08-13 17:53 | EX.PCM.PN.GI ---
Subjective Subjective Patient went underwent an upper endoscopy yesterday. The examined esophagus was normal. There was evidence of an intact gastrostomy with a patent G-tube present on the greater curvature of the stomach. This was characterized by healthy appearing mucosa. One non-bleeding linear duodenal ulcer with no stigmata of bleeding was found in the second portion of the duodenum. The lesion was 3 mm in largest dimension. Biopsies were taken with a cold forceps for histology. Verification of patient identification for the specimen was done. Estimated blood loss was minimal. One oozing linear duodenal ulcer with pigmented material was found in the second portion of the duodenum. The lesion was 8 mm in largest dimension. Coagulation for hemostasis using heater probe was successful. For location marking, one hemostatic clip was successfully placed. Clip battery parts assembler: [employer]. There was no bleeding at the end of the procedure. Impression: - Normal esophagus. - Intact gastrostomy with a patent G-tube present characterized by healthy appearing mucosa. - Non-bleeding duodenal ulcer with no stigmata of bleeding. Biopsied. - Oozing duodenal ulcer with pigmented material. Treated with a heater probe. Clip was placed. Clip battery parts assembler: [employer]. Recommendation: - Return patient to hospital phan for ongoing care. - Resume previous diet. - Continue present medications. Objective Data Objective Data Vital Signs: Vital Signs Temp Pulse Resp BP Pulse Ox O2 Del Method 98.1 F 72 16 142/72 H 97 Room Air 08/14/23 15:14 08/14/23 15:14 08/14/23 15:14 08/14/23 15:14 08/14/23 15:14 08/14/23 15:14 Oxygen Delivery Method Room Air Weight: 161 lb 2.526 oz Body Mass Index (BMI) 23.8 Intake & Output: Intake and Output for Last 24 Hours 08/12/23 08/13/23 08/14/23 23:59 23:59 23:59 Intake Total 1508.34 / 1508.34 1080.66 / 1080.66 1000 / 1000 Balance 1508.34 / 1508.34 1080.66 / 1080.66 1000 / 1000 Lab / Micro Data 08/13/23 05:11 08/13/23 05:11 Labs: Laboratory Results - last 24 hr 08/13/23 18:11: POC Glucose 184 H 08/13/23 22:20: POC Glucose 161 H 08/14/23 06:20: POC Glucose 201 H 08/14/23 11:39: POC Glucose 183 H Micro: Microbiology 08/10/23 11:56 Gastric Fluid/Contents Gastric Occult Blood - Final Occult Blood Positive Physical Exam Narrative patient is alert, he does say yes or no to questions HEENT head/scalp atraumatic Head and Scalp: normocephalic Eyes conjunctivae normal Neck no JVD Resp normal respiratory effort, no retractions, no use of accessory muscles and clear to auscultation bilaterally Cardio regular rate, regular rhythm, S1 normal heart sound and S2 normal heart sound GI normal to inspection, nondistended, normoactive bowel sounds GI Narrative: Patient has PEG tube in place Extremity no clubbing, cyanosis or edema, patient has right arm contracture Neuro Neuro Narrative: Patient patient is alert, he does say yes or no to questions, patient is hemiplegic on the right Psych Psych Narrative: Patient has flat affect Assessment & Plan Assessment/Plan (1) Acute hypoxemic respiratory failure: (2) Pneumonia: PLAN: Plan Dysphagia secondary to previous CVA Differential diagnosis does include esophageal dysphagia secondary to previous CVA. He likely has oropharyngeal dysphagia also. He did have some hematemesis that is possibly secondary to erosive esophagitis ,tube feedings, and gastric outlet obstruction or underlying gastroparesis from PEG tube placement. Not through the esophagus particularly if he is not at a 90 degree angle. Recommendations to evaluate his upper GI tract. His power of privacy attorney was explained alternatives, risk, benefits include nondistended bleeding, infection, sepsis, perforation, need for harnessmaker and . He will have an ASA of 3. Code status: full code- unverified. Patient unable to communicate, but per ED doctor he spoke to patient's mother who wanted him to be full code. 05/08/23-EGD findings : -LA Grade D (one or more mucosal breaks involving at least 75% of esophageal circumference) esophagitis with bleeding was found 34 to 39 cm from the incisors. Biopsies for histology were taken with a cold forceps for evaluation of celiac disease. Verification of patient identification for the specimen was done. Estimated blood loss was minimal. Coagulation for hemostasis using monopolar probe was successful. Estimated blood loss was minimal. There was evidence of an intact gastrostomy with a patent G-tube present in the gastric body. This was characterized by healthy appearing mucosa. No gross lesions were noted in the duodenal bulb. Patient is doing a lot better. He is tolerating his tube feedings. Continue PPI therapy. Charges/Coding Visit Charges Inpatient E&M: 83651 Subs Hosp L3
[2023-08-13] MEDS: Jevity 1.5 1,000 ML 50 ML GT (18:17)
[2023-08-13 18:30] LABS: Bedside Glucose 184 mg/dL (74-106)
--- NOTE | 2023-08-13 19:13 | CASEMGMT ---
Social Work Several messages to [facility] today to verify whether can accept patient. Spoke then with Corporate Bakery Demonstrator, Anamaria Ivan, from [facility]. Updated Anamaria to reason the family is inquiring to make a facility change. Received word back from [facility] that patient can be accepted, but will need precert. Call to patient's mother Amanda to update. Initially patient's mother appearing confused on the phone, regarding the update about [facility]. The mother made some comments about which facility on [facility], and if patient was at the hospital, would patient go to [facility] to wait for approval to [facility]. Educated that both facilities, [facility] and [facility] are on [facility]. After giving the motehr some time, and answering some questions the mother indicated that would go with [facility]. However the mother did also ask this keno writer/runner what this keno writer/runner suggests the mother to do. Explained this keno writer/runner cannot suggest a facility, but that the mother needs to weigh goals of care and concerns. Educated the mother that no matter where patient goes, the insurance approval for therapy is time limited and cannot guarantee a time. Due to the mother's initial uncertainty and apparent confusion about the discharge planning process, this keno writer/runner call the high school social science teacher at [facility], Xenia, to inquire whether 400 dollars was the rate for therapy services, and if this was something quoted to the family. Xenia agreed to verify and call this keno writer/runner back. Xenia called back to state that as patient is managed care medicaid, any therapy services are covered by the facility, not by the managed care. Patient had recently plateaued at the [facility], but if current PT/OT/ST notes indicate a need for services again would provide this, though would be time limited. Xenia reports patient does need a precert to return to [facility]. Called the patient's mother and left VM of need to return call. In light of patient being at [facility] since April, and the mother's initial confusion about what this keno writer/runner was calling for today, this keno writer/runner wants to ensure the mother is making an informed choice on patient's behalf. Plan: Need to clarify family preference for SNF: [facility] vs [facility]. Once this is known, [facility] mathews precert started on 08.14.2023. -CANDIDA Moreira
[2023-08-13 21:58] VITALS: BP 141/83; PULSE 72; RESP 16; TEMP 36.3; O2SAT 100
[2023-08-13] MEDS: Menthol/Lanolin/Calamine/Znox 113 GM Tube 1 APPLIC TOPICAL (22:18)
[2023-08-13 23:01] LABS: Bedside Glucose 161 mg/dL (74-106)
[2023-08-14 02:58] VITALS: BP 137/72; PULSE 72; RESP 16; TEMP 36.4; O2SAT 100
[2023-08-14] MEDS: Insulin Lispro 100 UNIT/ML INSULN.PEN SC ×3 (06:22→18:57)
[2023-08-14 07:08] LABS: Bedside Glucose 201 mg/dL (74-106)
--- NOTE | 2023-08-14 10:40 | PN.HOSP_ITS ---
Reason for Visit Reason for Visit: Diagnoses Pneumonia, unspecified organism (08/10/23) Acute respiratory failure with hypoxia (08/10/23) Adult hypertrophic pyloric stenosis (08/10/23) Gastrointestinal hemorrhage, unspecified (08/10/23) Subjective Subjective Patient was seen and examined today, he does not appear to be in any distress, he was able to do say yes and no today to me, according to nursing, he is scheduled for a modified barium swallow today Objective Data Objective Data Vital Signs: Vital Signs Temp Pulse Resp BP Pulse Ox O2 Del Method 97.6 F L 72 16 137/72 H 100 Room Air 08/14/23 02:58 08/14/23 02:58 08/14/23 02:58 08/14/23 02:58 08/14/23 02:58 08/14/23 02:59 Oxygen Delivery Method Room Air Weight: 73.1 kg Body Mass Index (BMI) 23.8 Intake & Output: Intake and Output for Last 24 Hours 08/12/23 08/13/23 08/14/23 23:59 23:59 23:59 Intake Total 1508.34 / 1508.34 1080.66 / 1080.66 Balance 1508.34 / 1508.34 1080.66 / 1080.66 Lab / Micro Data 08/13/23 05:11 08/13/23 05:11 Labs: Laboratory Results - last 24 hr 08/13/23 11:23: POC Glucose 240 H 08/13/23 15:53: POC Glucose 178 H 08/13/23 18:11: POC Glucose 184 H 08/13/23 22:20: POC Glucose 161 H 08/14/23 06:20: POC Glucose 201 H Micro: Microbiology 08/10/23 11:56 Gastric Fluid/Contents Gastric Occult Blood - Final Occult Blood Positive Physical Exam Narrative patient is alert, he does say yes or no to questions HEENT head/scalp atraumatic Head and Scalp: normocephalic Eyes conjunctivae normal Neck no JVD Resp normal respiratory effort, no retractions, no use of accessory muscles and clear to auscultation bilaterally Cardio regular rate, regular rhythm, S1 normal heart sound and S2 normal heart sound GI normal to inspection, nondistended, normoactive bowel sounds GI Narrative: Patient has PEG tube in place Extremity no clubbing, cyanosis or edema, patient has right arm contracture Neuro Neuro Narrative: Patient patient is alert, he does say yes or no to questions, patient is hemiplegic on the right Psych Psych Narrative: Patient has flat affect Assessment & Plan Assessment/Plan (1) Acute upper GI bleed: PLAN: Plan 1. 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 at this time, speech therapy has recommended a modified barium swallow, tube feeds will be continued at this time, it may be possible to modify his diet based on results of his modified barium swallow #6 chronic debility secondary to cerebrovascular disease-patient's family has requested the patient be discharged to a different half-way facility, plans are underway to locate one for the patient. Total clinical time spent by myself addressing the patient's medical issues, reviewing all of his data, and collaborating with patient's care team: 35 minutes Charges/Coding Visit Charges Inpatient E&M: 38162 Subs Hosp L2
[2023-08-14 11:36] VITALS: BP 148/84; PULSE 71; RESP 16; TEMP 36.4; O2SAT 97
[2023-08-14] MEDS: Menthol/Lanolin/Calamine/Znox 113 GM Tube 1 APPLIC TOPICAL ×2 (11:37→20:51)
[2023-08-14] MEDS: Lansoprazole 15 MG Capsule.DR 30 MG GT ×2 (11:37→20:53)
--- NOTE | 2023-08-14 11:44 | CASEMGMT ---
Discharge Planning Updates sent to [facility] via [facility]. Noted that patient would like to return with skilled therapy services. Amira Cuba DC Planning Asst.
--- NOTE | 2023-08-14 11:55 | CASEMGMT ---
Social Work Called patient's mother Amanda. Educated to discussion with [facility] yesterday, 08.13.23, regarding therapy services being covered by the custodial and would be given if therapy is needed/indicated. Educated that once patient plateaus then therapy would be stopped, and this would be the case at any nursing facility. Amanda asked if [facility] would give in writing, the willingness to provide therapy. Educated that this is not necessarily something that is done, but this resume writer will confirm with [facility] willingness to provide therapy. Amanda reported that if the ability to provide therapy is the same at any of the s, then since patient is settled at [facility] would want patient to return there, so long as willing to bring patient back with therapy on board. Called DAGO Michaels at [facility]. Updated Xenia to conversation with the mother. Xenia asked that notation about therapy be indicated in referral in [facility], so that corporate can respond accordingly. Updated Amira, Discharge [employer] District Supervisor, who will send referral over to [facility] and to ask for verification about therapy at discharge. Plan: Pending return to [facility]. Needs insurance precert. -CANDIDA Moreira
[2023-08-14 12:07] LABS: Bedside Glucose 183 mg/dL (74-106)
[2023-08-14 15:14] VITALS: BP 142/72; PULSE 72; RESP 16; TEMP 36.7; O2SAT 97
[2023-08-14] MEDS: Jevity 1.5 1,000 ML 50 ML GT (15:36)
--- NOTE | 2023-08-14 17:55 | PN.GI_ITS ---
Subjective Subjective Patient continues to do well and is awaiting placement. Objective Data Objective Data Vital Signs: Vital Signs Temp Pulse Resp BP Pulse Ox O2 Del Method 98.1 F 72 16 142/72 H 97 Room Air 08/14/23 15:14 08/14/23 15:14 08/14/23 15:14 08/14/23 15:14 08/14/23 15:14 08/14/23 15:14 Oxygen Delivery Method Room Air Weight: 161 lb 2.526 oz Body Mass Index (BMI) 23.8 Intake & Output: Intake and Output for Last 24 Hours 08/12/23 08/13/23 08/14/23 23:59 23:59 23:59 Intake Total 1508.34 / 1508.34 1080.66 / 1080.66 1000 / 1000 Balance 1508.34 / 1508.34 1080.66 / 1080.66 1000 / 1000 Lab / Micro Data 08/13/23 05:11 08/13/23 05:11 Labs: Laboratory Results - last 24 hr 08/13/23 18:11: POC Glucose 184 H 08/13/23 22:20: POC Glucose 161 H 08/14/23 06:20: POC Glucose 201 H 08/14/23 11:39: POC Glucose 183 H Micro: Microbiology 08/10/23 11:56 Gastric Fluid/Contents Gastric Occult Blood - Final Occult Blood Positive Physical Exam Narrative patient is alert, he does say yes or no to questions HEENT head/scalp atraumatic Head and Scalp: normocephalic Eyes conjunctivae normal Neck no JVD Resp normal respiratory effort, no retractions, no use of accessory muscles and clear to auscultation bilaterally Cardio regular rate, regular rhythm, S1 normal heart sound and S2 normal heart sound GI normal to inspection, nondistended, normoactive bowel sounds GI Narrative: Patient has PEG tube in place Extremity no clubbing, cyanosis or edema, patient has right arm contracture Neuro Neuro Narrative: Patient patient is alert, he does say yes or no to questions, patient is hemiplegic on the right Psych Psych Narrative: Patient has flat affect Assessment & Plan Assessment/Plan (1) Acute hypoxemic respiratory failure: (2) Pneumonia: PLAN: Plan 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 He likely has oropharyngeal dysphagia also. He did have some hematemesis that is possibly secondary to erosive esophagitis ,tube feedings, and gastric outlet obstruction or underlying gastroparesis from PEG tube placement. Not through the esophagus particularly if he is not at a 90 degree angle. Recommendations to evaluate his upper GI tract. His power of attorney at law was explained alternatives, risk, benefits include nondistended bleeding, infection, sepsis, perforation, need for fence gate assembler and . He will have an ASA of 3. Code status: full code- unverified. Patient unable to communicate, but per ED doctor he spoke to patient's mother who wanted him to be full code. -EGD findings : -LA Grade D (one or more mucosal breaks involving at least 75% of esophageal circumference) esophagitis with bleeding was found 34 to 39 cm from the incisors. Biopsies for histology were taken with a cold forceps for evaluation of celiac disease. Verification of patient identification for the specimen was done. Estimated blood loss was minimal. Coagulation for hemostasis using monopolar probe was successful. Estimated blood loss was minimal. There was evidence of an intact gastrostomy with a patent G-tube present in the gastric body. This was characterized by healthy appearing mucosa. No gross lesions were noted in the duodenal bulb. Patient is doing a lot better. He is tolerating his tube feedings. Continue PPI therapy. Charges/Coding Visit Charges Inpatient E&M: 91471 Subs Hosp L3
[2023-08-14] MEDS: Potassium Chloride Oral Soln 20 MEQ/15 ML UDC 40 MEQ GT (20:52)
[2023-08-14 21:03] VITALS: BP 151/80; PULSE 67; RESP 16; TEMP 36.7; O2SAT 100
[2023-08-15] MEDS: Insulin Lispro 100 UNIT/ML INSULN.PEN SC ×3 (00:23→17:12)
[2023-08-15 00:43] LABS: Bedside Glucose 155 mg/dL (74-106)
[2023-08-15 03:10] VITALS: BP 117/69; PULSE 74; RESP 14; TEMP 36.4; O2SAT 100
[2023-08-15 06:42] LABS: Absolute Lymphocyte Count 2.52 X10^3/uL (0.83-4.51); Absolute Neutrophil Count 2.4 X10^3/uL (2.0-7.7); Basophil# 0.04 X10^3/uL; Basophil% 0.7 % (0-1); Eosinophil# 0.19 X10^3/uL; Eosinophils% 3.5 % (0-5); Hematocrit 30.2 % (40-54); Hemoglobin 9.2 g/dL (13.0-16.5); Lymphocyte # 2.52 X10^3/ul (0.83-4.51); Lymphocyte % 46.8 % (19-41); Mean Corp Hgb Conc 30.5 g/dL (32-36); Mean Corpuscular Hgb 26.2 pg (27.0-32.0); Monocyte# 0.28 X10^3/uL; Monocyte% 5.2 % (0-10); NRBC Flagged by Analyzer 0 % (0-5); Neutrophil # 2.36 X10^3/uL (2.7-7.7); Neutrophil % 43.8 % (47-70); Platelet Count 194 K/mm3 (150-450); RBC Distribution Width CV 13.2 % (11.6-14.6); RBC Distribution Width SD 40.8 fl (35.1-43.9); Red Blood Count 3.51 M/mm3 (4.6-6.2); White Blood Count 5.4 K/mm3 (4.4-11.0)
[2023-08-15 07:16] LABS: Bedside Glucose 203 mg/dL (74-106)
[2023-08-15 08:54] VITALS: BP 116/73; PULSE 75; RESP 16; TEMP 37.2; O2SAT 100
[2023-08-15] MEDS: Menthol/Lanolin/Calamine/Znox 113 GM Tube 1 APPLIC TOPICAL ×2 (10:09→23:18)
[2023-08-15] MEDS: Lansoprazole 15 MG Capsule.DR 30 MG GT ×2 (10:09→23:18)
[2023-08-15 10:10] LABS: Anion Gap 8 (5-15); BUN 11 mg/dL (7-18); BUN/Creat Ratio 17.6 RATIO (10-20); Chloride 109 mmol/L (98-107); Creatinine, Serum 0.63 mg/dL (0.70-1.30); EST Glomerular Filtration Rate 138 mL/min (>60); Est Glom Filt Rate - Afr Amer 167 mL/min (>60); Estimated Creatinine Clearance 120.02 ml/min; Glucose 224 mg/dL (74-106); Potassium 4.2 mmol/L (3.5-5.1); Sodium Level 140 mmol/L (136-145)
[2023-08-15 10:24] LABS: Bedside Glucose 169 mg/dL (74-106)
[2023-08-15 10:24] LABS: Bedside Glucose 166 mg/dL (74-106)
[2023-08-15 10:33] LABS: Bedside Glucose 149 mg/dL (74-106)
[2023-08-15 12:00] VITALS: BP 137/84; PULSE 79; RESP 16; TEMP 36.8; O2SAT 99
[2023-08-15 14:00] VITALS: BP 137/84; PULSE 79; RESP 16; TEMP 36.8; O2SAT 99
--- NOTE | 2023-08-15 16:41 | PN.GI_ITS ---
Subjective Subjective . She has not seen any signs or symptoms of GI bleeding at this time. She is tolerating a diet. Objective Data Objective Data Vital Signs: Vital Signs Temp Pulse Resp BP Pulse Ox O2 Del Method 98.2 F 79 16 137/84 H 99 Room Air 08/15/23 14:00 08/15/23 14:00 08/15/23 14:00 08/15/23 14:00 08/15/23 14:00 08/15/23 14:00 Oxygen Delivery Method Room Air Weight: 161 lb 2.526 oz Body Mass Index (BMI) 23.8 Intake & Output: Intake and Output for Last 24 Hours 08/13/23 08/14/23 08/15/23 23:59 23:59 23:59 Intake Total 1080.66 / 1080.66 1510 / 1510 1420 / 1420 Balance 1080.66 / 1080.66 1510 / 1510 1420 / 1420 Lab / Micro Data 08/15/23 06:03 08/15/23 06:03 Labs: Laboratory Results - last 24 hr 08/14/23 18:44: POC Glucose 166 H 08/14/23 18:56: POC Glucose 169 H 08/15/23 00:21: POC Glucose 155 H 08/15/23 06:03: WBC 5.4, RBC 3.51 L, Hgb 9.2 L, Hct 30.2 L, MCV 86.0, MCH 26.2 L , MCHC 30.5 L, RDW Std Deviation 40.8, RDW Coeff of [place] 13.2, Plt Count 194, MPV 12.0, Immature Gran % (Auto) 0.000, Neut % (Auto) 43.8 L, Lymph % (Auto) 46.8 H, [place] % (Auto) 5.2, Eos % (Auto) 3.5, Baso % (Auto) 0.7, Absolute Neuts (auto) 2.4, Absolute Lymphs (auto) 2.52, Nucleated RBC % 0, Sodium 140, Potassium 4.2, Chloride 109 H, Carbon Dioxide 23.0, Anion Gap 8, BUN 11, Creatinine 0.63 L, Estim Creat Clear Calc 120.02, Est GFR (MDRD) Af Amer 167, Est GFR (MDRD) Non-Af 138, BUN/Creatinine Ratio 17.6, Glucose 224 H, Calcium 9.0 08/15/23 06:09: POC Glucose 203 H 08/15/23 10:09: POC Glucose 149 H Micro: Microbiology 08/10/23 11:56 Gastric Fluid/Contents Gastric Occult Blood - Final Occult Blood Positive Physical Exam Narrative patient is alert HEENT head/scalp atraumatic Head and Scalp: normocephalic Eyes conjunctivae normal Neck no JVD Resp normal respiratory effort, no retractions, no use of accessory muscles and clear to auscultation bilaterally Cardio regular rate, regular rhythm, S1 normal heart sound and S2 normal heart sound GI normal to inspection, nondistended, normoactive bowel sounds GI Narrative: Patient has PEG tube in place Extremity no clubbing, cyanosis or edema, patient has right arm contracture Neuro Neuro Narrative: Patient patient is alert, he does say yes or no to questions, patient is hemiplegic on the right Psych Psych Narrative: Patient has flat affect Assessment & Plan Assessment/Plan (1) Acute hypoxemic respiratory failure: (2) Pneumonia: PLAN: Plan 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 He likely has oropharyngeal dysphagia also. He did have some hematemesis that is possibly secondary to erosive esophagitis ,tube feedings, and gastric outlet obstruction or underlying gastroparesis from PEG tube placement. Not through the esophagus particularly if he is not at a 90 degree angle. Recommendations to evaluate his upper GI tract. His power of attorney general was explained alternatives, risk, benefits include nondistended bleeding, infection, sepsis, perforation, need for supervisor cigar making hand and . He will have an ASA of 3. Code status: full code- unverified. Patient unable to communicate, but per ED doctor he spoke to patient's mother who wanted him to be full code. -EGD findings : -LA Grade D (one or more mucosal breaks involving at least 75% of esophageal circumference) esophagitis with bleeding was found 34 to 39 cm from the incisors. Biopsies for histology were taken with a cold forceps for evaluation of celiac disease. Verification of patient identification for the specimen was done. Estimated blood loss was minimal. Coagulation for hemostasis using monopolar probe was successful. Estimated blood loss was minimal. There was evidence of an intact gastrostomy with a patent G-tube present in the gastric body. This was characterized by healthy appearing mucosa. No gross lesions were noted in the duodenal bulb. Patient is doing a lot better. He is tolerating his tube feedings. Continue PPI therapy. 08/15/23-hemoglobin continues to be stable. When she gets out of the hospital she will need to have a repeat upper endoscopy in approximately 3 months on medical therapy. Charges/Coding Visit Charges Inpatient E&M: 75670 [facility] Hosp L3
--- NOTE | 2023-08-15 16:59 | PN.HOSP_ITS ---
Reason for Visit Reason for Visit: Diagnoses Pneumonia, unspecified organism (08/10/23) Acute respiratory failure with hypoxia (08/10/23) Adult hypertrophic pyloric stenosis (08/10/23) Gastrointestinal hemorrhage, unspecified (08/10/23) Subjective Subjective Patient was seen and examined today, his diet was advanced to mechanical soft by speech therapy today after I had a discussion with them. We are still waiting on approval for the patient to return to the [facility] for further care. Objective Data Objective Data Vital Signs: Vital Signs Temp Pulse Resp BP Pulse Ox O2 Del Method 98.2 F 79 16 137/84 H 99 Room Air 08/15/23 14:00 08/15/23 14:00 08/15/23 14:00 08/15/23 14:00 08/15/23 14:00 08/15/23 14:00 Oxygen Delivery Method Room Air Weight: 73.1 kg Body Mass Index (BMI) 23.8 Intake & Output: Intake and Output for Last 24 Hours 08/13/23 08/14/23 08/15/23 23:59 23:59 23:59 Intake Total 1080.66 / 1080.66 1510 / 1510 1420 / 1420 Balance 1080.66 / 1080.66 1510 / 1510 1420 / 1420 Lab / Micro Data 08/15/23 06:03 08/15/23 06:03 Labs: Laboratory Results - last 24 hr 08/14/23 18:44: POC Glucose 166 H 08/14/23 18:56: POC Glucose 169 H 08/15/23 00:21: POC Glucose 155 H 08/15/23 06:03: WBC 5.4, RBC 3.51 L, Hgb 9.2 L, Hct 30.2 L, MCV 86.0, MCH 26.2 L , MCHC 30.5 L, RDW Std Deviation 40.8, RDW Coeff of [place] 13.2, Plt Count 194, MPV 12.0, Immature Gran % (Auto) 0.000, Neut % (Auto) 43.8 L, Lymph % (Auto) 46.8 H, [place] % (Auto) 5.2, Eos % (Auto) 3.5, Baso % (Auto) 0.7, Absolute Neuts (auto) 2.4, Absolute Lymphs (auto) 2.52, Nucleated RBC % 0, Sodium 140, Potassium 4.2, Chloride 109 H, Carbon Dioxide 23.0, Anion Gap 8, BUN 11, Creatinine 0.63 L, Estim Creat Clear Calc 120.02, Est GFR (MDRD) Af Amer 167, Est GFR (MDRD) Non-Af 138, BUN/Creatinine Ratio 17.6, Glucose 224 H, Calcium 9.0 08/15/23 06:09: POC Glucose 203 H 08/15/23 10:09: POC Glucose 149 H Micro: Microbiology 08/10/23 11:56 Gastric Fluid/Contents Gastric Occult Blood - Final Occult Blood Positive Physical Exam Narrative patient is alert, he does say yes or no to questions HEENT head/scalp atraumatic Head and Scalp: normocephalic Eyes conjunctivae normal Neck no JVD Resp normal respiratory effort, no retractions, no use of accessory muscles and clear to auscultation bilaterally Cardio regular rate, regular rhythm, S1 normal heart sound and S2 normal heart sound GI normal to inspection, nondistended, normoactive bowel sounds GI Narrative: Patient has PEG tube in place Extremity no clubbing, cyanosis or edema, patient has right arm contracture Neuro Neuro Narrative: Patient patient is alert, he does say yes or no to questions, patient is hemiplegic on the right Psych Psych Narrative: Patient has flat affect Assessment & Plan Assessment/Plan (1) Acute upper GI bleed: PLAN: Plan 1. 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
[2023-08-15 17:08] VITALS: BP 152/82; PULSE 72; RESP 16; TEMP 37.1; O2SAT 100
[2023-08-15 17:58] LABS: Bedside Glucose 164 mg/dL (74-106)
[2023-08-15] MEDS: Jevity 1.5 1,000 ML 50 ML GT (18:00)
[2023-08-15 23:00] VITALS: BP 154/80; PULSE 80; RESP 16; TEMP 36.1; O2SAT 100
[2023-08-15 23:40] LABS: Bedside Glucose 133 mg/dL (74-106)
[2023-08-16 03:53] VITALS: BP 114/73; PULSE 79; RESP 16; TEMP 36.6; O2SAT 99
[2023-08-16] MEDS: Insulin Lispro 100 UNIT/ML INSULN.PEN SC ×4 (06:06→23:38)
[2023-08-16 07:07] LABS: Bedside Glucose 174 mg/dL (74-106)
--- NOTE | 2023-08-16 08:25 | CASEMGMT ---
Discharge Planning Updates sent to [place] via [facility]. Amira Cuba DC Planning Asst.
[2023-08-16 08:30] VITALS: BP 119/74; PULSE 80; RESP 16; TEMP 36.7; O2SAT 100
[2023-08-16] MEDS: Lansoprazole 15 MG Capsule.DR 30 MG GT ×2 (10:48→20:12)
[2023-08-16] MEDS: Menthol/Lanolin/Calamine/Znox 113 GM Tube 1 APPLIC TOPICAL ×2 (10:49→20:12)
[2023-08-16 12:19] LABS: Bedside Glucose 190 mg/dL (74-106)
--- NOTE | 2023-08-16 13:48 | PCM.PN.HOSP ---
Reason for Visit Reason for Visit: Diagnoses Pneumonia, unspecified organism (08/10/23) Acute respiratory failure with hypoxia (08/10/23) Adult hypertrophic pyloric stenosis (08/10/23) Gastrointestinal hemorrhage, unspecified (08/10/23) Subjective Subjective Patient was seen and examined today, he did not talk to be today but nodded his head and smiled when I told him that he was going to continue on an oral diet. We have not received any information about the patient going to an extended care facility at this time. Objective Data Objective Data Vital Signs: Vital Signs Temp Pulse Resp BP Pulse Ox O2 Del Method 98.0 F 80 16 119/74 100 Room Air 08/16/23 08:30 08/16/23 08:30 08/16/23 08:30 08/16/23 08:30 08/16/23 08:30 08/16/23 08:30 Oxygen Delivery Method Room Air Weight: 73.1 kg Body Mass Index (BMI) 23.8 Intake & Output: Intake and Output for Last 24 Hours 08/14/23 08/15/23 08/16/23 23:59 23:59 23:59 Intake Total 1510 / 1510 1870 / 1870 150 / 150 Balance 1510 / 1510 1870 / 1870 150 / 150 Lab / Micro Data 08/15/23 06:03 08/15/23 06:03 Labs: Laboratory Results - last 24 hr 08/15/23 17:12: POC Glucose 164 H 08/15/23 23:20: POC Glucose 133 H 08/16/23 06:04: POC Glucose 174 H 08/16/23 11:56: POC Glucose 190 H Micro: Microbiology 08/10/23 11:56 Gastric Fluid/Contents Gastric Occult Blood - Final Occult Blood Positive Physical Exam Narrative patient is alert, he is nonverbal to this examiner today HEENT head/scalp atraumatic Head and Scalp: normocephalic Eyes conjunctivae normal Neck no JVD Resp normal respiratory effort, no retractions, no use of accessory muscles and clear to auscultation bilaterally Cardio regular rate, regular rhythm, S1 normal heart sound and S2 normal heart sound GI normal to inspection, nondistended, normoactive bowel sounds GI Narrative: Patient has PEG tube in place Extremity no clubbing, cyanosis or edema, patient has right arm contracture Neuro Neuro Narrative: Patient patient is alert, he was nonverbal to this examiner today Psych Psych Narrative: Patient has flat affect Assessment & Plan Assessment/Plan (1) Acute upper GI bleed: PLAN: Plan 1. 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
[2023-08-16 14:28] VITALS: BP 161/90; PULSE 83; RESP 18; TEMP 36.7; O2SAT 97
--- NOTE | 2023-08-16 15:52 | CASEMGMT ---
Social Work Precert not yet attained. SW let pt's mother know if we get precert on the weekend staff will let her know, otherwise we will follow up w/her on Saturday. Message sent to [facility] via [facility] to call the floor should they get precert, and green sheet is on the chart just in case precert comes through. THAI Piedra
[2023-08-16] MEDS: Jevity 1.5 1,000 ML 50 ML GT (18:07)
[2023-08-16 18:22] LABS: Bedside Glucose 181 mg/dL (74-106)
[2023-08-16 20:09] VITALS: BP 133/69; PULSE 79; RESP 16; TEMP 36.6; O2SAT 98
[2023-08-17 02:51] VITALS: BP 116/73; PULSE 77; RESP 16; TEMP 36.6; O2SAT 97
[2023-08-17] MEDS: Insulin Lispro 100 UNIT/ML INSULN.PEN SC ×2 (06:31→12:11)
[2023-08-17 06:33] LABS: Bedside Glucose 178 mg/dL (74-106)
[2023-08-17 06:51] LABS: Bedside Glucose 186 mg/dL (74-106)
[2023-08-17 09:14] VITALS: BP 133/73; PULSE 91; RESP 16; TEMP 36.6; O2SAT 99
[2023-08-17] MEDS: Menthol/Lanolin/Calamine/Znox 113 GM Tube 1 APPLIC TOPICAL (09:17)
[2023-08-17] MEDS: Lansoprazole 15 MG Capsule.DR 30 MG GT (09:17)
[2023-08-17 12:32] LABS: Bedside Glucose 195 mg/dL (74-106)
--- NOTE | 2023-08-17 14:06 | PN.HOSP_ITS ---
Reason for Visit Reason for Visit: Diagnoses Pneumonia, unspecified organism (08/10/23) Acute respiratory failure with hypoxia (08/10/23) Adult hypertrophic pyloric stenosis (08/10/23) Gastrointestinal hemorrhage, unspecified (08/10/23) Subjective Subjective Patient was seen and examined today, he does not appear to be in any distress, he is nonverbal to this examiner today. Objective Data Objective Data Vital Signs: Vital Signs Temp Pulse Resp BP Pulse Ox O2 Del Method 97.8 F 91 16 133/73 H 99 Room Air 08/17/23 09:14 08/17/23 09:14 08/17/23 09:14 08/17/23 09:14 08/17/23 09:14 08/17/23 09:36 Oxygen Delivery Method Room Air Weight: 73.1 kg Body Mass Index (BMI) 23.8 Intake & Output: Intake and Output for Last 24 Hours 08/15/23 08/16/23 08/17/23 23:59 23:59 23:59 Intake Total 1870 / 1870 1300 / 1300 30 / 30 Balance 1870 / 1870 1300 / 1300 30 / 30 Lab / Micro Data 08/15/23 06:03 08/15/23 06:03 Labs: Laboratory Results - last 24 hr 08/16/23 18:01: POC Glucose 181 H 08/16/23 23:37: POC Glucose 178 H 08/17/23 06:30: POC Glucose 186 H 08/17/23 12:09: POC Glucose 195 H Micro: Microbiology 08/10/23 11:56 Gastric Fluid/Contents Gastric Occult Blood - Final Occult Blood Positive Physical Exam Narrative patient is alert, he is nonverbal to this examiner today HEENT head/scalp atraumatic Head and Scalp: normocephalic Eyes conjunctivae normal Neck no JVD Resp normal respiratory effort, no retractions, no use of accessory muscles and clear to auscultation bilaterally Cardio regular rate, regular rhythm, S1 normal heart sound and S2 normal heart sound GI normal to inspection, nondistended, normoactive bowel sounds GI Narrative: Patient has PEG tube in place Extremity no clubbing, cyanosis or edema, patient has right arm contracture Neuro Neuro Narrative: Patient patient is alert, he was nonverbal to this examiner today Psych Psych Narrative: Patient has flat affect Assessment & Plan Assessment/Plan (1) Acute upper GI bleed: PLAN: Plan 1. 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
[2023-08-17 15:10] VITALS: BP 119/71; PULSE 89; RESP 17; TEMP 36.6; O2SAT 100
--- NOTE | 2023-08-17 15:59 | TREXTCAR_ITS ---
Diet Diet Order/Speech Therapy: 08/14/23 12:20 Diet: Regular - General Food consistency:: Mechanical (Minced/Moist) Liquid Consistency:: Regular/Thin Is pt able to select menu?: No Diet Comments: No straws, assist w/tray set up/feeding d/t RUE hemiparesis,1:1 supervision Routine Orders/Code Status Code Status: Full Code Wound(s) abd: Wound Type: Surgical Incision Therapies Physical Therapy: Eval and Treat Occupational Therapy: Eval and Treat Speech Therapy: Eval and Treat Problem/Diagnosis (1) Acute upper GI bleed: Status: Acute Code(s): K92.2 - Gastrointestinal hemorrhage, unspecified Plan 1. 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-complicates care, management, recovery, and prognosis #5 oropharyngeal dysphagia-patient's diet was advanced today to mechanical soft, we will continue tube feedings #6 chronic debility secondary to cerebrovascular disease-patient will return ya k to his extended care facility when we have approval for discharge there Total clinical time spent by myself addressing the patient's medical issues, reviewing all of his data, and collaborating with patient's care team: 25 minutes Allergies/Procedures Done in Hospital Allergies No Known Allergies Allergy (Verified 08/12/23 08:26) Procedures: EGD Type of Care/Length of Stay Estimated LOS: Convalescent Care Less Than 30 days Type of Care Needed: Skilled Rehab Potential: Fair Prognosis: Fair Additional Orders/Day of Discharge H&P will serve as current which was dated: 08/10/23 Day of Discharge: 08/17/23 Dietary and Speech Recommendations Dietitian Recommendations/Changes: Continue PO with Regular diet as tolerated; texture/consistency per [employer] to optimize oral intakes. Continue continuous enteral nutrition via PEG tube: Jevity 1.5 at 50mL/hr goal rate with 150mL feeding tube flush q4 hours to provide 1800kcal, 76.5 grams protein and 1812ml water to meet estimated nutrition needs. Will defer ONS as TF via PEG meeting~100% estimated nutrition needs. Discharge Plan Admission Admit Date/Time: 08/10/23 12:56 Primary Reason for Your Visit: GI bleed Attending Provider: Tommy Batista Primary Care Provider: Juan C Barnes Consulting Providers: Mau Contrears Instructions Additional Instructions / Restrictions: Patient's losartan was stopped, due to his blood pressure being normal without this medication, this medication was not resumed, patient has been off his blood pressure medications for several days, I have chosen to restart the patient's carvedilol at a lower dosage. Patient's Reglan was stopped while in the hospital, if patient's shows signs of gastroparesis, it may need to be restarted. Diet was liberalized to include mechanical soft food. Patient's basal insulin was stopped-his blood sugars were controlled with sliding scale insulin only. Discharge Orders/Prescriptions Prescriptions: New menthol-zinc oxide [Calmoseptine] 0.44-20.6 % Ointment 1 applic topical BID Qty: 0 0RF Protocol: *Topical Application Instructions APPLICATION INSTRUCTIONS: coccyx carvedilol 6.25 mg tablet 6.25 mg feeding tube BID Qty: 1 0RF Rx Instructions: must administer with a meal/food Continued ammonium lactate 12 % cream 1 applic topical BID PRN (Reason: dry skin) atorvastatin 80 mg tablet 80 mg feeding tube QHS cholecalciferol (vitamin D3) 50 mcg (2,000 unit) capsule 50 mcg feeding tube DAILY multivitamin with iron-mineral Tablet 1 tab feeding tube DAILY thiamine HCl (vitamin B1) 100 mg tablet 100 mg feeding tube DAILY ondansetron 4 mg tablet,disintegrating 4 mg PO Q6H PRN (Reason: nausea and vomiting) Qty: 10 0RF Rx Instructions: Zofran for the nausea. You can put it through his feeding tube. acetaminophen 500 mg capsule 500 mg feeding tube Q6H PRN (Reason: pain) bisacodyl 10 mg suppository 10 mg [place] DAILY PRN (Reason: constipation) insulin lispro 100 unit/mL insulin pen 1 sliding scale dose subcut 4X/DAY Protocol: 6. Sliding Scale Insulin Custom Condition: mg/dl range Dose/Route: Number of Units Condition: 150-199 mg/dl = 1 unit Condition: 200-249 mg/dl = 2 unit Condition: 250-299 mg/dl = 3 unit Condition: 300-349 mg/dl = 4 unit Condition: 350-399 mg/dl = 5 unit Condition: 400-449 mg/dl = 6 unit Condition: 450+= 7 units Protocol Text: Custom Sliding Scale esomeprazole magnesium [Nexium Packet] [address] for susp in packet 40 mg PO BID Discontinued carvedilol 25 mg tablet 25 mg feeding tube BID insulin glargine 100 unit/mL solution 18 unit subcut QPM Rx Instructions: DO NOT HOLD UNLESS APPROVED BY losartan 50 mg tablet 50 mg feeding tube DAILY metoclopramide HCl 10 mg tablet 10 mg feeding tube 4X/DAY Referrals / Follow Up: Juan C Barnes MD [Primary Care Provider] - Disposition Disposition (needs filled in before D/C Order can be placed): Long Term Facility
--- NOTE | 2023-08-17 16:10 | DS.PCM_ITS ---
Providers Date of Admission: 08/10/23 Date of Discharge: 08/17/23 Primary Care Physician: Dr. Juan C Barnes MD Consultations 08/10/23 13:44 Consult: Gastroenterology Routine Consulting Provider: Ja Gastroenterology Reason for Consult: duodenal obstruction with GI bleed EMERGENT Consult: No Notified: Yes Date Notified: 08/10/23 Time Notified: 13:00 Method of Notification: ED Physician Initiated Reason For Visit: SBO WITH GI BLEED Diagnosis Discharge Diagnosis (1) Acute upper GI bleed: Status: Acute Code(s): K92.2 - Gastrointestinal hemorrhage, unspecified Plan 1. 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-complicates care, management, recovery, and prognosis #5 oropharyngeal dysphagia-patient's diet was advanced today to mechanical soft, we will continue tube feedings #6 chronic debility secondary to cerebrovascular disease-patient will return back to his extended care facility when we have approval for discharge there Total clinical time spent by myself addressing the patient's medical issues, reviewing all of his data, and collaborating with patient's care team: 25 minutes Medications at Discharge Home Medications ammonium lactate 12 % topical cream 1 applic topical BID PRN dry skin 05/05/23 atorvastatin 80 mg tablet 80 mg feeding tube QHS CHOLESTEROL 05/05/23 cholecalciferol (vitamin D3) 50 mcg (2,000 unit) capsule 50 mcg feeding tube DAILY VIT D DEFICIENCY 05/05/23 multivitamin with iron-mineral 1 tab feeding tube DAILY VITAMIN 05/05/23 thiamine HCl (vitamin B1) 100 mg tablet 100 mg feeding tube DAILY VITAMIN B DIFICIENCY 05/05/23 ondansetron 4 mg disintegrating tablet 4 mg PO Q6H PRN nausea and vomiting #10 tabs 05/15/23 acetaminophen 500 mg capsule 500 mg feeding tube Q6H PRN pain 06/19/23 bisacodyl 10 mg rectal suppository 10 mg IA DAILY PRN constipation 06/19/23 esomeprazole magnesium 40 mg granules delayed release for susp (Nexium Packet) 40 mg PO BID 06/19/23 insulin lispro 100 unit/mL subcutaneous pen 1 sliding scale dose subcut 4X/DAY 06/19/23 carvedilol 6.25 mg tablet 6.25 mg feeding tube BID #1 TAB 08/17/23 menthol 0.44 %-zinc oxide 20.6 % topical ointment (Calmoseptine) 1 applic topical BID #0 grams 08/17/23 Hospital Course Operations None Procedures EGD Summary of Care Provided Minutes Spent on Discharge: 33 Hospital Course: This 63-year-old black male was seen in the emergency room at [facility] after being sent in from a local extended care facility at which she was residing due to blood in his NG tube and persistent vomiting. Patient had a prior debilitating stroke in December 2022, he had expressive aphasia and he admitted to generalized abdominal pain. Workup in the emergency room included a CBC which was remarkable for a hemoglobin of 12.9, patient's BUN was slightly elevated at 29 and glucose was 215. CT of the abdomen and pelvis revealed a distended stomach containing air-fluid level with distended proximal half of the duodenum, there is a transition point in the distal duodenum as it passes between the aorta and the SMA. PEG tube was noted in the body of the stomach. Patient was admitted to PCU for upper GI bleed with gastric outlet obstruction, he was maintained on a PPI, he was seen by gastroenterology in consultation. On 08/12/2023, patient underwent an EGD which showed normal esophagus, there was a nonbleeding duodenal ulcer with no stigmata of bleeding, there is noted to be an oozing duodenal ulcer with pigmented material was treated with a heater probe. Patient's tube feedings were resumed, he had no more vomiting or abdominal pain, speech therapy saw the patient and recommended oral intake, he was started with pur?ed food and then it was transition to mechanical soft diet. It was not necessary to transfuse patient. Patient was seen by PT and OT, family agreed that the patient should go back to his prior senior living, he was skilled for further PT services. On 08/17/2023, patient was seen and examined: patient is alert, he is nonverbal to this examiner today HEENT head/scalp atraumatic Head and Scalp: normocephalic Eyes conjunctivae normal Neck no JVD Resp normal respiratory effort, no retractions, no use of accessory muscles and clear to auscultation bilaterally Cardio regular rate, regular rhythm, S1 normal heart sound and S2 normal heart sound GI normal to inspection, nondistended, normoactive bowel sounds GI Narrative: Patient has PEG tube in place Extremity no clubbing, cyanosis or edema, patient has right arm contracture Neuro Neuro Narrative: Patient patient is alert, he was nonverbal to this examiner today Psych Psych Narrative: Patient has flat affect Patient was transferred to the [facility] in stable condition on 08/17/2023. Weight / BMI Weight Weight: 73.1 kg Body Mass Index (BMI) 23.8 ABG / Lab / Microbiology Data 08/15/23 06:03 08/15/23 06:03 Laboratory: Laboratory Results - last 24 hr 08/16/23 18:01: POC Glucose 181 H 08/16/23 23:37: POC Glucose 178 H 08/17/23 06:30: POC Glucose 186 H 08/17/23 12:09: POC Glucose 195 H Microbiology: Microbiology 08/10/23 11:56 Gastric Fluid/Contents Gastric Occult Blood - Final Occult Blood Positive Meaningful Use Info Meaningful Use Meaningful Use Diagnoses (Choose all that apply): None applicable Ischemic Stroke Statin Dosing Therapy Reference: STATIN DOSE THERAPY REFERENCE: * Patients > 75 years receive moderate or high dose statin therapy. * Patients 75 years or YOUNGER should receive HIGH intensity statin dose unless contraindicated. You will be required to document reason for non-treatment if statin daily dose does not meet guidelines. HIGH DOSE STATIN THERAPY DAILY Atorvastatin > than or = to 40 mg Rosuvastatin > than or = to 20 mg Amlodipine + Atorvastatin > than or = to 2.5/40 mg Ezetimibe + Simvastatin 10/80 mg Simvastatin 80mg Discharge Plan Admission Admit Date/Time: 08/10/23 12:56 Primary Reason for Your Visit: GI bleed Attending Provider: Tommy Batista Primary Care Provider: Juan C Barnes Consulting Providers: Mau Contreras Instructions Additional Instructions / Restrictions: Patient's losartan was stopped, due to his blood pressure being normal without this medication, this medication was not resumed, patient has been off his blood pressure medications for several days, I have chosen to restart the patient's carvedilol at a lower dosage. Patient's Reglan was stopped while in the hospital, if patient's shows signs of gastroparesis, it may need to be restarted. Diet was liberalized to include mechanical soft food. Patient's basal insulin was stopped-his blood sugars were controlled with sliding scale insulin only. Discharge Orders/Prescriptions Prescriptions: New menthol-zinc oxide [Calmoseptine] 0.44-20.6 % Ointment 1 applic topical BID Qty: 0 0RF Protocol: *Topical Application Instructions APPLICATION INSTRUCTIONS: coccyx carvedilol 6.25 mg tablet 6.25 mg feeding tube BID Qty: 1 0RF Rx Instructions: must administer with a meal/food Continued ammonium lactate 12 % cream 1 applic topical BID PRN (Reason: dry skin) atorvastatin 80 mg tablet 80 mg feeding tube QHS cholecalciferol (vitamin D3) 50 mcg (2,000 unit) capsule 50 mcg feeding tube DAILY multivitamin with iron-mineral Tablet 1 tab feeding tube DAILY thiamine HCl (vitamin B1) 100 mg tablet 100 mg feeding tube DAILY ondansetron 4 mg tablet,disintegrating 4 mg PO Q6H PRN (Reason: nausea and vomiting) Qty: 10 0RF Rx Instructions: Zofran for the nausea. You can put it through his feeding tube. acetaminophen 500 mg capsule 500 mg feeding tube Q6H PRN (Reason: pain) bisacodyl 10 mg suppository 10 mg IA DAILY PRN (Reason: constipation) insulin lispro 100 unit/mL insulin pen 1 sliding scale dose subcut 4X/DAY Protocol: 6. Sliding Scale Insulin Custom Condition: mg/dl range Dose/Route: Number of Units Condition: 150-199 mg/dl = 1 unit Condition: 200-249 mg/dl = 2 unit Condition: 250-299 mg/dl = 3 unit Condition: 300-349 mg/dl = 4 unit Condition: 350-399 mg/dl = 5 unit Condition: 400-449 mg/dl = 6 unit Condition: 450+= 7 units Protocol Text: Custom Sliding Scale esomeprazole magnesium [Nexium Packet] [address] for susp in packet 40 mg PO BID Discontinued carvedilol 25 mg tablet 25 mg feeding tube BID insulin glargine 100 unit/mL solution 18 unit subcut QPM Rx Instructions: DO NOT HOLD UNLESS APPROVED BY losartan 50 mg tablet 50 mg feeding tube DAILY metoclopramide HCl 10 mg tablet 10 mg feeding tube 4X/DAY Referrals / Follow Up: Juan C Barnes MD [Primary Care Provider] - Disposition Disposition (needs filled in before D/C Order can be placed): Residential Facility Charges/Coding Visit Charges Inpatient E&M: 21584 Disch Hosp >30min
--- NOTE | 2023-08-17 17:15 | NURSING ---
Report called to nurse Vu at [facility].
[2023-08-17 18:32] LABS: Bedside Glucose 162 mg/dL (74-106)
== END 2023-08-17 18:28 | disposition skilled nursing facility (03) | DRG 241 ==
LOC: ED 12:57 → PCU 13:09
PROVIDERS: Internal Medicine Gastroenterology; Admitting Provider Family Medicine; Emergency Provider Emergency Medicine; PCP Family Medicine; Visit Provider Internal Medicine
PROC: 0DJ08ZZ Inspection of Upper Intestinal Tract, Via Natural or Artificial Opening Endoscopic (ICD-10-PCS; CPT 43235; principal; 2023-08-12 12:25)
DX: K26.9 Duodenal ulcer, unspecified as acute or chronic, without hemorrhage or perforation (principal); K31.1 Adult hypertrophic pyloric stenosis; I69.351 Hemiplegia and hemiparesis following cerebral infarction affecting right dominant side; E11.9 Type 2 diabetes mellitus without complications; Z79.4 Long term (current) use of insulin; Z93.1 Gastrostomy status; I10 Essential (primary) hypertension; I69.391 Dysphagia following cerebral infarction; E78.5 Hyperlipidemia, unspecified; K21.00 Gastro-esophageal reflux disease with esophagitis, without bleeding; Z87.891 Personal history of nicotine dependence; R53.81 Other malaise; R13.12 Dysphagia, oropharyngeal phase
CPT/HCPCS: 36415; 71045; 74177; 80048; 82271; 82962; 83036; 83605; 83690; 83735; 84484; 85014; 85018; 85025; 85610; 85730; 86850; 86900; 86901; 88305; 92526; 92610; 93005; 97110; 97162; 97166; 97530; 97535; 97802; 97803; 99283; J7030; Q9967; J2405

== ENCOUNTER 2023-11-20 08:13 | Day surgery (SDC) | payer MEDICAID, SELFPAY ==
[2023-11-20] VITALS (7 sets, daily range): BP systolic 98–141; BP diastolic 73–87; PULSE 90–98; RESP 16–18; TEMP 36.2–36.7; O2SAT 96–99; BMI 23.0
[2023-11-20] MEDS: Lactated Ringers 1,000 ML 15 ML IV (08:43)
--- NOTE | 2023-11-20 08:50 | PCM.PRE.AN2 ---
ASA Classification* ASA Classification ASA Classification: 3 Assessment & Plan Anesthesia* Anesthesia Assessment Anesthesia Assessment: Discussed sedation and/or anesthesia options, risks, benefits, and alternatives with patient/parents/legal guardian/POA. Questions invited. The patient/parents/legal guardian/POA seems to understand and agrees to proceed with anesthesia plan. Reviewed the physical assessment, medical history, allergy history and patient home medications list prior to surgery/procedure/anesthetic and documented any changes. Performed airway and anesthesia risk assessments. Anesthesia Type Anesthesia Type: MAC Anesthesia Focused Assessment* Airway Assessment Mouth opens: >3 cm Mallampati Score: II Focused Labs Anesthesia Preop lab: CBC WBC 5.4 K/mm3 (4.4-11.0) 08/15/23 06:03 RBC 3.51 M/mm3 (4.6-6.2) L 08/15/23 06:03 Hgb 9.2 g/dL (13.0-16.5) L 08/15/23 06:03 Hct 30.2 % (40-54) L 08/15/23 06:03 Plt Count 194 K/mm3 (150-450) 08/15/23 06:03 CHEMISTRY Potassium 4.2 mmol/L (3.5-5.1) 08/15/23 06:03 Sodium 140 mmol/L (136-145) 08/15/23 06:03 Magnesium 1.8 mg/dL (1.6-2.6) 08/12/23 04:40 BUN 11 mg/dL (7-18) 08/15/23 06:03 Creatinine 0.63 mg/dL (0.70-1.30) L 08/15/23 06:03 Glucose 224 mg/dL (74-106) H 08/15/23 06:03 POC Glucose 162 mg/dL (74-106) H 08/17/23 18:13 COAG PT 15.3 SECONDS (11.7-14.9) H 08/12/23 06:12 Pre-Assessment Diagnosis/Proposed Procedure Planned Operative Procedure(s): EGD Anesthesia History Anesthesia History - neuropsychology director: Anesthesia History - neuropsychology director Hx Hospitalization Yes: 05/2023 cva RESP 11/19/23 09:59 FAILURE Any Problems With Anesthesia No 11/19/23 09:59 Cholinesterase deficiency No 11/19/23 09:59 You/Your Family Experience No 11/19/23 09:59 fever (hyperthermia) with Relationship Recent Exposure to Contagious No 06/24/23 11:45 Disease Does patient have nerve No 11/19/23 09:59 stimulator Patient instructed to have device shut off --Does patient have Pacemaker or ICD? When Was Last Pacemaker Check QUESTION #4 FULL TEXT: You/Your Family Experience fever (hyperthermia) with Anesthesia Last Oral Intake Last Oral intake: Last Oral Intake NPO since Meds taken in AM with sips of water? Meds patient instructed to take am of surgery PONV PONV - neuropsychology director: PONV - neuropsychology director Female No 11/19/23 09:59 HX of Motion Sickness No 11/19/23 09:59 HX of N/V After Surgery No 11/19/23 09:59 Non-Smoker Yes 11/19/23 09:59 Duration of Surgery greater No 11/19/23 09:59 than 60 minutes Number of Risk Factors 1 11/19/23 09:59 PONV Score Low Risk 11/19/23 09:59 Height & Weight Height & Weight: Anesthesia: Height & Weight Height 5 ft 9 in 08/16/23 15:06 Respiratory Assessment Respiratory Assessment - neuropsychology director: Respiratory Tract Infection Hx - neuropsychology director Hx Respiratory Tract Infection No 11/19/23 09:59 STOP Sleep Apnea STOP Sleep Apnea - neuropsychology director: STOP Sleep Apnea - neuropsychology director Hx Hypertension Yes: ON MEDS 11/19/23 09:59 Hx Sleep Apnea No 11/19/23 09:59 CPAP BIPAP Do you snore loudly (louder No 11/19/23 09:59 than talking or can be heard Do you often feel tired/ Yes 11/19/23 09:59 fatigued/ sleepy during daytime? Has anyone observed you stop No 11/19/23 09:59 breathing during sleep? STOP Results Positive 11/19/23 09:59 QUESTION #5 FULL TEXT : Do you snore loudly (louder than talking or can be heard through closed doors)? Tobacco Use History Tobacco Use History - neuropsychology director: Tobacco Use History - neuropsychology director Tobacco Use Smoking Status Former smoker 11/19/23 09:59 Hx Tobacco Use No 11/19/23 09:59 Years Smoking Packs Smoked per Day Smoking Cessation Date was Yes - quit smoking within 15 11/19/23 09:59 within the last 15 years years Hx Smoking Cessation Date Hx Smoking Cessation No 11/19/23 09:59 Counseling Hematologic Medial History Hematologic Hx - neuropsychology director: Hematologic Medical Hx - telephone recorder Hx of Blood Transfusion No 11/19/23 09:59 Hx of Transfusion in last 3 No 11/19/23 09:59 Months Date of Last Transfusion (if within last 3 months) Ever experience any problems No 11/19/23 09:59 with transfusion(s)? Specify any problems Hx of Preganancy in last 3 N/A 11/19/23 09:59 Months Nurse Filling Out Transfusion DSCHRIBER 11/19/23 09:59 & Questions: Date: 11/19/23 11/19/23 09:59 Time: 10:00 11/19/23 09:59 Patient unable to answer at this time (ie. confused, unrespo /Reproduction History /Reproductive History - neuropsychology director: /Reproductive Hx- neuropsychology director Hx Now Gestational Age (in weeks): EDC: Hx Hx Para Hx Section SAB No 11/19/23 09:59 Active Medications Active Medications: Current Medications Generic Name Dose Route Start Last Admin Trade Name Freq PRN Reason Stop Dose Admin Lactated Ringer's 1,000 mls @ 15 mls/hr 11/20/23 08:30 11/20/23 08:43 IV 15 mls/hr .Q48H VINCE Administration PFSH Medical History [place] in half[place]way Skin tear Insulin dependent diabetes mellitus Dietary restriction 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) Generalized muscle weakness Alcohol use Dysphagia GERD (gastroesophageal reflux disease) High cholesterol Hypertension Anemia Stroke/cerebrovascular accident Nicotine dependence, other tobacco product, uncomplicated Alcohol abuse, uncomplicated Other hereditary and idiopathic neuropathies Vitamin D deficiency, unspecified 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 Iron deficiency anemia, unspecified Cerebral infarction 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 Hemiplegia, unspecified affecting right dominant side Home Medications ?Medication ?Instructions ?Recorded ?Last Taken ?Type ammonium lactate 12 % topical cream 1 applic topical BID PRN dry skin 05/05/23 Unknown History atorvastatin 80 mg tablet 80 mg feeding tube QHS CHOLESTEROL 05/05/23 Unknown History cholecalciferol (vitamin D3) 50 50 mcg feeding tube DAILY VIT D 05/05/23 Unknown History mcg (2,000 unit) capsule DEFICIENCY multivitamin with iron-mineral 1 tab feeding tube DAILY VITAMIN 05/05/23 Unknown History thiamine HCl (vitamin B1) 100 mg 100 mg feeding tube DAILY VITAMIN 05/05/23 Unknown History tablet B DIFICIENCY ondansetron 4 mg disintegrating 4 mg PO Q6H PRN nausea and 05/15/23 Unknown Rx tablet vomiting #10 tabs acetaminophen 500 mg capsule 500 mg feeding tube Q6H PRN pain 06/19/23 Unknown History bisacodyl 10 mg rectal suppository 10 mg WA DAILY PRN constipation 06/19/23 Unknown History esomeprazole magnesium 40 mg 40 mg feeding tube BID 06/19/23 Unknown History granules delayed release for susp (Nexium Packet) insulin lispro 100 unit/mL 1 sliding scale dose subcut 4X/DAY 06/19/23 Unknown History subcutaneous pen carvedilol 6.25 mg tablet 6.25 mg feeding tube BID #1 TAB 08/17/23 Unknown Rx menthol 0.44 %-zinc oxide 20.6 % 1 applic topical BID #0 grams 08/17/23 Unknown Rx topical ointment (Calmoseptine) insulin glargine 100 unit/mL 10 unit subcut QPM 11/19/23 Unknown History subcutaneous solution (Lantus U-100 Insulin) magnesium hydroxide 400 mg/5 mL 30 ml PO DAILY PRN constipation 11/19/23 Unknown History oral suspension (Milk of Magnesia) Allergy/AdvReac Type Severity Reaction Status Date / Time No Known Allergies Allergy Verified 11/20/23 08:43 Family History Other Hypertension Surgical History History of gastrostomy Social History Smoking Status: Former smoker Review of Systems (Anesthesia) ROS Narrative System reviewed and no additional complaints, except as documented.
[2023-11-20 09:13] LABS: Bedside Glucose 133 mg/dL (74-106)
--- NOTE | 2023-11-20 09:15 | EGD_PTH ---
PATIENT: DREA MORLEY LOC: EN U#:[id number] AGE/SX: 63/M ROOM: RE11/20/[address]: Dr. Ryan Larios DO : 1960 BED: DIS: 11/20/2023 SPEC #: [id number] RECD: 11/20/23 12:43 STATUS: RIYA REElvira #: [id number] ROSE MARY: 11/20/23 09:[address]: Ryan Larios DEPT: SURGICAL PATHOLOGY RECD BY: Lupillo Dorado ENTERED: 11/20/23 14:25 SP TYPE: EGD BIOPSY JOSE ELIAS DR: Dr. Juan C Barnes MD Tissues: Duodenum, NOS Procedures: Surgery Specimen Level IV HEADER OPERATION: EGD with biopsy PRE-OP DIAGNOSIS: Duodenal ulcer TISSUE SUBMITTED: Duodenum biopsy MICROSCOPIC DIAGNOSIS Duodenum, biopsy: Mild non-specific chronic inflammation. AM. 11/21/2023 MICROSCOPIC DESCRIPTION Slides are reviewed. GROSS DESCRIPTION Received in fixative is one container labeled with the patient's name and designated Duodenum biopsy. The specimen consists of two irregular fragments of light parkre soft tissue that in aggregate measure 0.6 x 0.5 x 0.1 cm. The specimen is totally submitted in one cassette. 11/20/2023 TC:3 CPT:15766
--- NOTE | 2023-11-20 09:29 | PCM.HP.BLA ---
History and Physical Date of Admission: 11/20/23 DREA MORLEY, is a 63 M who presents to the office today for HFU. *BGI established via [facility] hospitalization 05.05.23-05.10.23. Presented with SOB per pneumonia. GI consulted for emesis, aspiration pneumonia and dysphagia. EGD 05.07.2324 Grade D erosive esophagitis with bleeding. Increased PPI to BID. [facility] ER 05.15.23 presented with nausea and vomiting. OV 06.07.23- Pt here with transporter with [facility]. States he is not having any nausea or vomiting. Unsure how long he has PEG or why it was placed. Pt states he does do some oral intake without difficulty. EGD 06.24.23 Normal esophagus. Z-line irregular, 39 cm from the incisors. Biopsied. Intact gastrostomy with a patent G-tube present characterized by healthy appearing mucosa. No gross lesions in the first portion of the duodenum. [facility] ED 08.10.23 - 08.18.23 GI bleed - blood in peg tube and vomiting abd/pelvis CT 08.10.23 Distended stomach containing an air-fluid level with distended proximal half of the duodenum. There is a transition point in the distal duodenum as it passes between the aorta and the SMA, there may be a nutcracker effect present. PEG tube noted in the body of the stomach with no CT evidence of complication. Simple left renal cyst no specific follow-up needed. Dependent bladder calcifications. Degenerative bony changes EGD 08.12.23 Normal esophagus. Intact gastrostomy with a patent G-tube present characterized by healthy appearing mucosa. Non-bleeding duodenal ulcer with no stigmata of bleeding. Biopsied. Oozing duodenal ulcer with pigmented material. Treated with a heater probe. Clip was placed. 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 OV 10.21.23 Patient has been doing well. He denies abdominal pain, blood in his PEG and n/v. He continues to take Nexium 40 mg BID. He has no concerns today. ROS Const Constitutional: No anorexia, fatigue, fever(s), weight change or sleep problems Eyes Eyes: No change in vision ENT ENT: No abnormal hearing, difficulty swallowing, mouth lesions, tongue swelling or throat swelling Resp Respiratory: No cough or shortness of breath Cardio Cardiology: No chest pain at rest, chest pain with exertion, shortness of breath or dyspnea on exertion Gastro GI: No difficulty swallowing Genitourinary Male: No difficulty urinating or burning urination Musc Musculoskeletal: No joint pain, joint swelling, muscle weakness or decreased muscle mass Skin Skin: No hair loss in leg, yellowing of the eye, itchy eyes, rash, skin ulcer or skin swelling Neuro Neurology: No abnormal hearing, abnormal movements, confusion, unsteady gait/balance or memory loss Psych Psychiatric: No anxiety, No confusion and No memory loss Endo Endocrine: No fatigue or weight change Aller/Imm Allergy/Immunologic: No itchy eyes, throat swelling or tongue swelling Kayden/Lymp Hematologic/Lymphatic: No easy bleeding, easy bruising or enlarged lymph nodes Exam Const General: cooperative and comfortable Nutritional Appearance: average body habitus HENMT Head: normal to inspection Ears: hearing grossly normal bilaterally Nose: external nose normal Face and sinus: normal facial exam Eyes General: appearance normal, both eyes and all related structures Neck Neck: normal visual inspection Chest Chest palpation & inspection: normal inspection of the chest Resp Effort & Inspection: normal respiratory effort Cardio Palpation: normal PMI GI Inspection: normal to inspection Palpation: no hepatosplenomegaly Skin General: no rashes or lesions noted Neuro General: patient alert Extrem General: normal to inspection Psych Affect: normal affect Assessment and Plan Assessment and Plan (1) Duodenal ulcer: Status: Acute Plan: Patient is here today for f/u after hospital admission for GI bleed. He had EGD with duodenal ulcers which were treated with heater probe. He has been doing well. He is taking Nexium 40 mg BID -Will schedule for EGD next month to ensure healing of ulcers -He will continue taking Nexium 40 mg BID I have examined the patient and the H&P has been reviewed. There are no clinical changes since date of exam.
--- NOTE | 2023-11-20 10:28 | OP.EGD_ITS ---
Patient Name: Ata Copeland Procedure Date: 11/20/2023 9:19 AM Date of : 1960 Age: 63 Procedure: Upper GI endoscopy Indications: Peptic ulcer Providers: Ryan Larios DO Medicines: Monitored Anesthesia Care Patient Profile: This is a 63 year old male. Refer to note in patient chart for documentation of history and physical. Patient has symptoms. Complications: No immediate complications. Procedure: Pre-Anesthesia Assessment: - Prior to the procedure, a History and Physical was performed, and patient medications and allergies were reviewed. The patient is competent. The risks and benefits of the procedure and the sedation options and risks were discussed with the patient. All questions were answered and informed consent was obtained. Patient identification and proposed procedure were verified by the physician in the pre-procedure area. Mental Status Examination: alert and oriented. Airway Examination: normal oropharyngeal airway and neck mobility. Respiratory Examination: clear to auscultation. CV Examination: normal. Prophylactic Antibiotics: The patient does not require prophylactic antibiotics. Prior Anticoagulants: The patient has taken no anticoagulant or antiplatelet agents. ASA Grade Assessment: II - A patient with mild systemic disease. After reviewing the risks and benefits, the patient was deemed in satisfactory condition to undergo the procedure. The anesthesia plan was to use monitored anesthesia care (MAC). Immediately prior to administration of medications, the patient was re-assessed for adequacy to receive sedatives. The heart rate, respiratory rate, oxygen saturations, blood pressure, adequacy of pulmonary ventilation, and response to care were monitored throughout the procedure. The physical status of the patient was re-assessed after the procedure. After obtaining informed consent, the endoscope was passed under direct vision. Throughout the procedure, the patient's blood pressure, pulse, and oxygen saturations were monitored continuously. The gastroscope was introduced through the mouth, and advanced to the second part of duodenum. The upper GI endoscopy was accomplished without difficulty. The patient tolerated the procedure well. Scope In: 10:18:36 AM Scope Out: 10:23:12 AM Total Procedure Duration Time 0 hours 4 minutes 36 seconds Findings: The examined esophagus was normal. There was evidence of an intact gastrostomy with a patent G-tube present in the gastric body. This was characterized by healthy appearing mucosa. Patchy mildly erythematous mucosa without active bleeding and with no stigmata of bleeding was found in the duodenal bulb. Biopsies were taken with a cold forceps for histology. Verification of patient identification for the specimen was done. Estimated blood loss was minimal. Impression: - Normal esophagus. - Intact gastrostomy with a patent G-tube present characterized by healthy appearing mucosa. - Erythematous duodenopathy. Biopsied. Recommendation: - Discharge patient to home. - Resume previous diet. - Continue present medications. - Await pathology results. Procedure Code(s): --- Professional --- 22359, Esophagogastroduodenoscopy, flexible, transoral; with biopsy, single or multiple CPT copyright 2021 [employer]. All rights reserved. The codes documented in this report are preliminary and upon vp of customer experience strategy review may be revised to meet current compliance requirements. Ryan Larios DO 11/20/2023 10:27:40 AM This report has been signed electronically. Number of Addenda: 0 Note Initiated On: 11/20/2023 9:19 AM
--- NOTE | 2023-11-20 10:28 | OP.CCLET_ITS ---
11/20/2023 Juan C Barnes MD [address] [id number] Re : Upper GI endoscopy procedure for Ata Copeland Dear Dr. Barnes This procedure was performed on Monday, November 20, 2023. My impressions and recommendations are as follows: Impressions : - Normal esophagus. - Intact gastrostomy with a patent G-tube present characterized by healthy appearing mucosa. - Erythematous duodenopathy. Biopsied. Recommendations : - Discharge patient to home. - Resume previous diet. - Continue present medications. - Await pathology results. My findings are described in the full procedure note, which is enclosed. If I can be of further assistance, please feel free to contact me at . Sincerely, Ryan Larios, 11/20/2023 10:27:40 AM This report has been signed electronically.
--- NOTE | 2023-11-20 10:35 | PCM.POST.ANE ---
Anesthesia: Postop Eval I Current Vital Signs Temperature: 97.1 F Pulse Rate: 97 Blood Pressure: 98/73 Respiratory Rate: 18 Pulse Ox: 98 Oxygen Delivery Method: Room Air Assessment Airway patent: Yes Spontaneous unlabored respirations: Yes Mental status: Asleep nausea: No Vomiting: No Anesthesia Complication: No Fluid Hydration Crystalloid volume administer (ml): 400 Total IV fluid infused: 400 Progress Note Anesthesia document: Postop Eval 1 completed: Yes
--- NOTE | 2023-11-20 13:08 | PCM.POSTANE2 ---
Anesthesia Postop Eval I Sum Postop Eval Completion status Anesthesia document: Postop Eval 1 completed: Yes Anesthesia Postop Eval I Summary Anesthesia Postop Eval I Summary: Anesthesia Postop Eval I: Assessment Summary Airway patent Yes 11/20/23 10:35 [email or web address] Spontaneous unlabored Yes 11/20/23 10:35 [email or web address] respirations Mental status Asleep 11/20/23 10:35 [email or web address] nausea No 11/20/23 10:35 [email or web address] Vomiting No 11/20/23 10:35 [email or web address] Anesthesia Postop Eval I: Fluid Summary Crystalloid volume administer 400 11/20/23 10:35 [email or web address] (ml) Colloids volume administered ( ml) Blood Product volume administered (ml) Total IV fluid infused 400 11/20/23 10:35 [email or web address] Anesthesia Postop Eval I: Summary Notes Anesthesia Complication No 11/20/23 10:35 [email or web address] Anesthesia Complication Comment: Post-operative progress note Anesthesia: Postop Eval II Evaluation Mental status: Awake Pain Level: 0 nausea: No Vomiting: No
== END 2023-11-20 11:30 | disposition home or self-care (01) ==
LOC: EN 08:15 → AC 08:17
PROVIDERS: PCP Family Medicine; Referring Provider Family Medicine; Visit Provider Internal Medicine Gastroenterology
PROC: 0DJ08ZZ Inspection of Upper Intestinal Tract, Via Natural or Artificial Opening Endoscopic (ICD-10-PCS; CPT 43235; principal; 2023-11-20 09:10)
DX: K29.80 Duodenitis without bleeding (principal); Z93.1 Gastrostomy status; E11.9 Type 2 diabetes mellitus without complications; Z79.4 Long term (current) use of insulin; I10 Essential (primary) hypertension; K21.9 Gastro-esophageal reflux disease without esophagitis; E78.00 Pure hypercholesterolemia, unspecified; E55.9 Vitamin D deficiency, unspecified; E53.8 Deficiency of other specified B group vitamins; Z86.73 Personal history of transient ischemic attack (TIA), and cerebral infarction without residual deficits; Z87.19 Personal history of other diseases of the digestive system; Z79.899 Other long term (current) drug therapy; Z87.891 Personal history of nicotine dependence
CPT/HCPCS: 43239; 82962; 88305; J7120; J2405

== ENCOUNTER → 2024-07-20 | Outpatient (CLI) | payer MEDICAID, SELFPAY ==
[2024-07-20 16:04] LABS: Hematocrit 46.5 % (40-54); Hemoglobin 14.7 g/dL (13.0-16.5); Mean Corp Hgb Conc 31.6 g/dL (32-36); Mean Corpuscular Hgb 27.5 pg (27.0-32.0); Mean Corpuscular Volume 87.1 fL (80-94); Mean Platelet Vol. 13.8 fl (6.2-12.0); Platelet Count 158 K/mm3 (150-450); RBC Distribution Width CV 12.2 % (11.6-14.6); RBC Distribution Width SD 38.5 fl (35.1-43.9); Red Blood Count 5.34 M/mm3 (4.6-6.2); White Blood Count 5.2 K/mm3 (4.4-11.0)
[2024-07-20 16:33] LABS: Erythrocyte Sedimentation Rate 16 mm/hr (0-20)
[2024-07-20 16:50] LABS: ALB/GLOB Ratio 1.5 RATIO (0.9-2.4); AST(SGOT) 18 U/L (<=37); Alanine Aminotransfer ALT/SGPT 27 U/L (<=46); Albumin, Serum 4.6 g/dL (3.4-4.8); Alkaline Phosphatase 178 U/L (40-129); Anion Gap 11 (5-15); BUN 21 mg/dL (4-19); BUN/Creat Ratio 24.9 RATIO (10-20); Calcium,Total 10.2 mg/dL (7.6-11.0); Carbon Dioxide 26.7 mmol/L (21.0-32.0); Chloride 101 mmol/L (98-108); Cholesterol 143 mg/dL (<=200); Creatinine, Serum 0.84 mg/dL (0.70-1.20); EST Glomerular Filtration Rate 97 (>60); Globulin 3.1 g/dL (2.2-4.2); Glucose 182 mg/dL (70-99); High Density Lipoprotein 35 mg/dL; Low Density Lipoprotein Calc. 70 mg/dL; Protein, Total 7.7 g/dL (5.9-8.4); Sodium Level 139 mmol/L (133-145); Triglycerides 187 mg/dL; Very Low Density Lipoprotein 37 mg/dL (5-40); cholesterol:hdl ratio screen 4.04
[2024-07-20 17:18] LABS: Vitamin B12 2229 pg/mL (180-914)
[2024-07-20 21:27] LABS: Ammonia 55.6 umol/L (16-60)
[2024-07-22 11:08] LABS: ANTINUCLEAR ANTIBODIES DIRECT Negative (Negative)
== END | disposition home or self-care (01) ==
PROVIDERS: PCP Family Medicine; Referring Provider Psychiatry & Neurology Neurology; Visit Provider Psychiatry & Neurology Neurology
DX: F01.50 Vascular dementia, unspecified severity, without behavioral disturbance, psychotic disturbance, mood disturbance, and anxiety (principal); I67.9 Cerebrovascular disease, unspecified; E78.5 Hyperlipidemia, unspecified
CPT/HCPCS: 36415; 80053; 80061; 81240; 81241; 82140; 82607; 82747; 83735; 84207; 84425; 84443; 85014; 85027; 85300; 85301; 85302; 85303; 85305; 85306; 85652; 86038; 86147; 86160; 86162; 86225

== ENCOUNTER → 2024-08-18 | Outpatient (CLI) | payer MEDICAID, SELFPAY ==
--- NOTE | 2024-08-18 13:01 | ECHOD_ITS ---
Reason For Study Reason For Study: HTN, HX OF STROKE Procedure This was a 2D Doppler, Color Flow transthoracic echocardiogram. Exam done with patient reclined in wheel chair. Exam performed in department. Left Ventricle Normal LV size. The left ventricular ejection fraction is 60 %. Stage 1 diastolic dysfunction. No regional wall motion abnormalities noted. Right Ventricle Normal RV size. Normal systolic function. Atria Normal left atrium. Normal right atrium. Mitral Valve Normal mitral valve. Tricuspid Valve Normal tricuspid valve. Aortic Valve Trisinus/trileaflet aortic valve. Pulmonic Valve Normal pulmonic valve. Great Vessels Normal aortic root. The pulmonary artery is normal size. Inferior vena cava collapse with respiration. Pericardium/Pleural No pericardial effusion. Medication Unable to complete bubble study, patient declined. MMode/2D Measurements & Calculations LVIDd: 3.6 cm IVSd: 1.2 cm LVOT diam: 2.2 cm LVIDs: 2.5 cm LVPWd: 1.1 cm RVDd: 3.0 cm FS: 30.0 % LVOT area: 3.8 cm2 LAV(MOD-bp): 13.3 ml LVAd ap4: 16.4 cm2 LVAd ap2: 14.1 cm2 LAV(MOD-bp) Indexed: 6.1 ml/m2 LVLd ap4: 6.6 cm LVLd ap2: 6.4 cm LAV(MOD-sp2): 14.1 ml EDV(MOD-sp4): 33.2 ml EDV(MOD-sp2): 25.6 ml LAV(MOD-sp4): 10.6 ml EDV(sp4-el): 34.5 ml EDV(sp2-el): 26.4 ml LVAs ap4: 7.5 cm2 LVAs ap2: 6.9 cm2 LVLs ap4: 5.1 cm LVLs ap2: 5.1 cm ESV(MOD-sp4): 9.3 ml ESV(MOD-sp2): 7.8 ml ESV(sp4-el): 9.4 ml ESV(sp2-el): 8.0 ml EF(MOD-sp4): 71.9 % EF(MOD-sp2): 69.4 % EF(sp4-el): 72.8 % SV(MOD-sp4): 23.8 ml SV(MOD-sp2): 17.7 ml SV(sp4-el): 25.1 ml SI(MOD-sp4): 11.0 ml/m2 SI(MOD-sp2): 8.2 ml/m2 Ao sinus diam: 3.[address] Junction: 2.3 cm LA A4 area: 6.6 cm2 LA dimension(2D): 2.6 cm TAPSE: 1.4 cm RA A4 area: 5.7 cm2 Time Measurements MV dec time: 0.25 sec Doppler Measurements & Calculations MV E max tonny: 47.2 cm/sec Lat Peak E' Tonny: 10.1 cm/sec Med Peak E' Tonny: 9.2 cm/sec MV A max tonny: 78.0 cm/sec E/E' lat: 4.7 E/E' med: 5.1 MV E/A: 0.61 MV dec slope: 191.3 cm/sec2 Ao V2 max: 80.5 cm/sec LV V1 max: 82.5 cm/sec Ao max P.6 mmHg LV V1 max P.7 mmHg Ao V2 mean: 64.0 cm/sec LV V1 mean P.5 mmHg Ao mean P.7 mmHg LV V1 mean: 58.6 cm/sec Ao V2 VTI: 14.1 cm LV V1 VTI: 12.7 cm AV (velocity ratio): 0.90 AMOR(I,D): 3.5 cm2 AMOR(V,D): 3.9 cm2 SV(LVOT): 48.7 ml ECHO/Echo Complete Interpretation Summary The left ventricular ejection fraction is 60 %. Normal LV size. No regional wall motion abnormalities noted. Stage 1 diastolic dysfunction. Ordering Physician: Werner Mccarty Referring Physician: Juan C Barnes Performed By: Briseyda Buckley RDCS
--- NOTE | 2024-08-18 13:01 | CDU_ITS ---
Reason For Study Reason For Study: HX CVA Rt. Velocities/BP Lt. Velocities/BP Prox CCA 99.2/9.2 cm/sec. Prox CCA 91.9/11.7 cm/sec. Mid CCA 43.9/12.0 cm/sec. Mid CCA 81.8/13.8 cm/sec. Dist CCA 50.4/12.0 cm/sec. Dist CCA 78.3/16.0 cm/sec. Prox ICA 43.9/10.9 cm/sec. Prox ICA 67.9/16.9 cm/sec. Mid ICA 80.7/18.3 cm/sec. Mid ICA 55.1/11.6 cm/sec. Unable to visualize distal ICA. Dist ICA 68.6/24.4 cm/sec. Rt. ICA/CCA = 1.8. Lt. ICA/CCA = 0.8. Prox ECA 123.4/7.0 cm/sec. Prox ECA 69.9/9.7 cm/sec. Rt. Vert. 63.7/8.5 cm/sec. Lt. Vert. 35.8/7.3 cm/sec. Right Extracranial There is homogeneous, smooth atherosclerotic plaque noted in the right common carotid artery. There is heterogeneous, irregular atherosclerotic plaque noted in the right internal carotid artery. The distal right internal carotid artery is not well visualized. The right internal carotid artery is very tortuous. There is heterogeneous, irregular atherosclerotic plaque noted in the right external carotid artery. Antegrade flow is noted in the right vertebral artery. Left Extracranial There is homogeneous, smooth atherosclerotic plaque noted in the left common carotid artery. There is intimal thickening but no significant atherosclerotic plaque noted in the left internal carotid artery. The distal left internal carotid artery is not well visualized. The left internal carotid artery is very tortuous. There is intimal thickening but no significant atherosclerotic plaque noted in the left external carotid artery. Antegrade flow is noted in the left vertebral artery. Procedure Carotid Duplex 22124. This is a Carotid Duplex examination using B-mode, color flow and specral Doppler. Limited views were obtained due to patient positioning, inability to lay flat. The study was technically difficult. Exam performed in department. VL/Carotid Duplex Ultrasound Interpretation Summary Mild (<50%) stenosis right extracranial internal carotid. The distal right inte rnal carotid artery was not well visualized. No significant atherosclerotic plaque or stenosis noted in the left internal carotid artery. Flow within the vertebral arteries is antegrade bilaterally. Ordering Physician: Werner Mccarty Referring Physician: Juan C Barnes Performed By: Mars Flores RVT
== END | disposition home or self-care (01) ==
LOC: CVS 12:58
PROVIDERS: PCP Family Medicine; Referring Provider Psychiatry & Neurology Neurology; Visit Provider Psychiatry & Neurology Neurology
DX: I67.9 Cerebrovascular disease, unspecified (principal); E78.5 Hyperlipidemia, unspecified; I10 Essential (primary) hypertension
CPT/HCPCS: 93306; 93880

== ENCOUNTER → 2024-09-02 | Outpatient (CLI) | payer MEDICAID, SELFPAY ==
--- OUTSIDE RECORDS SUMMARY | 2024-09-02 07:17 | XMS RPT_ITS | CCD ---
Author Organization [facility] Care Team Providers Care Striker Out Name Role Phone Dr. Lawrence Skaggs Emergency Provider KATIE Monte Primary Care Provider Dr. Abril Barrera Admit Provider Dr. Abril Barrera Other Provider Dr. Parish Sanchez Other Provider Dr. Brain Franks Other Provider Dr. Rafael Mahan Attending Provider Dr. Rafael Mahan Other Provider Dr. Vinnie Castillo Other Provider [phone] Elvira Jones Other Provider Dr. Max Mata Other Provider Dr. Germania Moore Other Provider Dr. López Pena Other Provider Unavailable Dr. Michael Mansfield Other Provider Dr. Augie Davila Other Provider Dr. Jd Gonzalez Other Provider Dr. Vaughn Arnold Other Provider Dr. Roverto Zavala Referring Provider [phone] Dr. Roverto Zavala Other Provider Dr. Roverto Zavala Attending Provider [phone] Dr. Ryan Larios Attending Provider [phone] DEAN MCGINNIS Admitting Unavailable CHA WILLINGHAM Attending Unavailable PARISH GODINEZ Consulting Unavaila ble Dr. Lawrence Skaggs Emergency Provider KATIE Monte Primary Care Provider Dr. Abril Barrera Admit Provider Dr. Abril Barrera Other Provider Dr. Parish Sanchez Other Provider Dr. Brain Franks Other Provider Dr. Rafael Mahan Attending Provider Dr. Rafael Mahan Other Provider Dr. Vinnie Castillo Other Provider Dr. Elvira Jones Other Provider Dr. Max Mata Other Provider Dr. Germania Moore Other Provider Dr. López Pena Other Provider Unavailable Dr. Michael Mansfield Other Provider Dr. Augie Davila Other Provider Dr. Jd Gonzalez Other Provider Dr. Vaughn Arnold Other Provider [phone] Dr. Roverto Zavala Referring Provider [phone] Dr. Roverto Zavala Other Provider Dr. Roverto Zavala Attending Provider Dr. Ryan Larios Attending Provider Dr. Juan C Barnes Primary Care Provider Dr. Juan C Barnes Referring Provider Dr. Ryan Larios Other Provider Dr. Juan C Barnes MD Primary Care Provider Dr. Juan C Barnes MD Referring Provider Bibiana SOMMERS, Dr. Caldera Attending Provider Bibiana SOMMERS, Dr. Caldera Referring Provider Saturnino SOMMERS, Dr. Negro Attending Provider Damari SOMMERS, Dr. Degroot Attending Provider Zane Wetzel Attending Unavailable Barnes, Juan C Primary Care Unavailable Marky Matamoros Attending Unavailable Baddour, Werner Referring Unavailable Barnes, Juan C Primary Care Unavailable Friend, Ryan Attending Unavailable Barnes, Juan C Referring Unavailable Barnes, Juan C Primary Care Unavailable Friend, Ryan Consulting Unavailable Barnes, Juan C Referring Unavailable Barnes, Juan C Primary Care Unavailable Constance Fitzgerald Attending Unavailable Baddour, Werner Attending Unavailable Barnes, Juan C Referring Unavailable Barnes, Juan C Primary Care Unavailable Friend, Ryan Attending Unavailable Barnes, Juan C Primary Care Unavailable Barnes, Juan C Referring Unavailable Baddour, Werner Attending Unavailable Baddour, Werner Referring Unavailable Barnes, Juan C Primary Care Unavailable Baddour, Werner Attending Unavailable Baddour, Werner Referring Unavailable Barnes, Juan C Primary Care Unavailable Baddour, Werner Attending Unavailable Baddour, Werner Referring Unavailable Barnes, Juan C Primary Care Unavailable Baddour, Werner Attending Unavailable Baddour, Werner Referring Unavailable Barnes, Juan C Primary Care Unavailable Medications Current Medications Medication Drug Class(es) Dates Sig (Normalized) Sig (Original) acetaminophen 500 mg oral capsule (3 sources) Start: 06-19-2023 Acetaminophen 500 mg capsule Active 500 mg feeding tube EVERY 6 HOURS as needed for pain June 19, 2023 12:00am atorvastatin 80 mg oral tablet (6 sources) HMG-CoA Reductase Inhibitor Start: 05-05-2023 Atorvastatin 80 mg tablet Active 80 mg feeding tube AT BEDTIME May 05, 2023 1:00am bisacodyl 10 mg rectal suppository (3 sources) Stimulant Laxative Start: 06-19-2023 Bisacodyl 10 mg suppository Active 10 mg RC DAILY as needed for constipation June 19, 2023 12:00am carvedilol 6.25 mg oral tablet (8 sources) alpha-Adrenergic Kate, beta-Adrenergic Kate Start: 08-17-2023 Carvedilol 6.25 mg tablet Active 6.25 mg feeding tube TWICE A DAY August 17, 2023 12:00am must administer with a meal/food Start: 05-05-2023 End: 08-17-2023 Carvedilol 25 mg tablet Disc ontinued 25 mg feeding tube TWICE A DAY May 05, 2023 1:00am August 17, 2023 4:05pm cholecalciferol 0.05 mg oral capsule (6 sources) Vitamin D Start: 05-05-2023 Cholecalcifero l (Vitamin D3) 50 mcg (2,000 unit) capsule Active 50 ug feeding tube DAILY May 05, 2023 1:00am esomeprazole 40 mg granules for oral suspension (3 sources) Proton Pump Inhibitor Start: 06-19-2023 Esomeprazole Magnesi um (Nexium Packet) [address] for susp in packet Active 40 mg feeding tube TWICE A DAY June 19, 2023 12:00am Insulin Glargine (3 sources) Insulin Analog Start: 05-05-2023 Insulin Glargi ne Active 18 UNIT SC EVERY EVENING May 05, 2023 1:00am DO NOT HOLD UNLESS APPROVED BY Start: 05-05-2023 Insulin Glargi ne Active 16 UNIT SC EVERY EVENING May 05, 2023 1:00am DO NOT HOLD UNLESS APPROVED BY Start: 05-05-2023 Insulin Glargi ne Active 16 UNIT SC EVERY EVENING May 05, 2023 12:00am DO NOT HOLD UNLESS APPROVED BY Insulin Glargine (Lantus U-100 Insulin) 100 unit/mL solution (2 sources) Start: 11-19-2023 Insulin Glargi ne (Lantus U-100 Insulin) 100 unit/mL solution Active 10 U SC EVERY EVENING November 19, 2023 12:00am Insulin Glargine-Yfgn (1 source) Start: 05-05-2023 Insulin Glargi ne-Yfgn Active 16 UNIT SC EVERY EVENING May 05, 2023 12:00am ammonium lactate 120 mg/ml topical cream (5 sources) Start: 05-05-2023 Ammonium Lacta te 12 % cream Active 1 NMA TOPICAL TWICE A DAY as needed for dry skin May 05, 2023 1:00am Magnesium Hydroxide (2 sources) Start: 11-19-2023 take 1 mL by mouth once daily as needed for constipation Magnesium Hydroxide (Milk Of Magnesia) 400 mg/5 mL suspension Active 30 mL PO DAILY as needed for constipation November 19, 2023 12:00am Menthol / Zinc Oxide (2 sources) Start: 08-17-2023 Menthol-Zinc O xide (Calmoseptine) 0.44-20.6 % Ointment Active 1 NMA TOPICAL TWICE A DAY 0 August 17, 2023 12:00am Please contact the information source for Protocol details. mineral oil 1000 mg/ml enema (2 sources) Start: 07-09-2024 Mineral Oil en delmy Active 118 mL RC daily as needed July 09, 2024 12:00am discard any unused portion Multivitamin With Iron-Mineral (3 sources) Start: 05-05-2023 Multivitamin W ith Iron-Mineral Active 1 TABLET feeding tube DAILY May 05, 2023 1:00am Start: 05-05-2023 Multivitamin W ith Iron-Mineral Active 1 TABLET feeding tube DAILY May 05, 2023 12:00am ondansetron 4 mg disintegrating oral tablet (4 sources) Serotonin-3 Receptor Antagonist Start: 05-15-2023 take 1 tablet by mouth every six hours as needed for nausea and vomiting Ondansetron 4 mg tablet,disintegrating Active 4 mg PO EVERY 6 HOURS as needed for nausea and vomiting May 15, 2023 12:00am Zofran for the nausea. You can put it through his feeding tube. Completed/Discontinued Medications Medication Drug Class(es) Dates Sig (Normalized) Sig (Original) aspirin 81 mg chewable tablet (6 sources) Platelet Aggregation Inhibitor, Nonsteroidal Anti-inflammatory Drug Start: 05-05-2023 take 1 tablet by mouth once daily Aspirin (Adult Aspirin Regimen) 81 mg tablet,delayed release (DR/EC) Active 81 MG PO DAILY May 05, 2023 12:00am via peg tube Start: 05-05-2023 End: 06-19-2023 Aspirin 81 mg tablet,chewabl e Discontinued 1 {tbl} feeding tube DAILY May 05, 2023 1:00am June 19, 2023 2:48pm doxycycline hyclate 100 mg oral capsule (5 sources) Tetracycline-class Drug Start: 05-10-2023 End: 06-19-2023 take 1 capsule by mouth twice daily Doxycycline Hyclate 100 mg capsule Discontinued 100 mg PO TWICE A DAY 4 2 May 10, 2023 1:00am June 19, 2023 2:49pm Insulin Glargine 100 unit/mL solution (2 sources) Start: 05-05-2023 End: 08-17-2023 Insulin Glargine 100 unit/mL solution Discontinued 18 U SC EVERY EVENING May 05, 2023 1:00am August 17, 2023 4:04pm DO NOT HOLD UNLESS APPROVED BY 3 ml insulin lispro 100 unt/ml pen injector (3 sources) Insulin Analog Start: 06-19-2023 End: 07-09-2024 Insulin Lispro 100 unit/mL insulin pen Discontinued 1 sliding scale dose SC 4 TIMES DAILY June 19, 2023 12:00am July 09, 2024 9:13am Please contact the information source for Protocol details. Start: 06-19-2023 Insulin Lispro Active 1 sliding scale dose SC 4 TIMES DAILY June 19, 2023 12:00am losartan potassium 50 mg oral tablet (6 sources) Angiotensin 2 Receptor Kate Start: 05-05-2023 End: 08-17-2023 Losartan 50 mg tablet Discontinued 50 mg feeding tube DAILY May 05, 2023 1:00am August 17, 2023 4:03pm metoclopramide 10 mg oral tablet (2 sources) Dopamine-2 Receptor Antagonist Start: 08-10-2023 End: 08-17-2023 Metoclopramide Hcl 10 mg tablet Discontinued 10 mg feeding tube 4 TIMES DAILY August 10, 2023 12:00am August 17, 2023 4:03pm Multivitamin With Iron-Mineral tablet (2 sources) Start: 05-05-2023 End: 07-09-2024 Multivitamin With Iron-Mineral tablet Discontinued 1 {tbl} feeding tube DAILY May 05, 2023 1:00am July 09, 2024 9:14am pantoprazole 40 mg delayed release oral tablet (5 sources) Proton Pump Inhibitor Start: 05-10-2023 End: 06-19-2023 take 1 tablet by mouth twice daily Pantoprazole 40 mg Tablet,Delayed Release (Dr/Ec) Discontinued 40 mg PO TWICE A DAY 0 May 10, 2023 1:00am June 19, 2023 2:57pm Thiamine (6 sources) Start: 05-05-2023 End: 07-09-2024 Thiamine Hcl (Vitamin B1) 100 mg tablet Discontinued 100 mg feeding tube DAILY May 05, 2023 1:00am July 09, 2024 9:14am Start: 05-05-2023 Thiamine Hcl ( Vitamin B1) Active 100 MG feeding tube DAILY May 05, 2023 1:00am Start: 05-05-2023 Thiamine Hcl ( Vitamin B1) Active 100 MG feeding tube DAILY May 05, 2023 12:00am Start: 05-05-2023 take 100 mg by mouth once césar y Thiamine Hcl (Vitamin B1) Active 100 MG PO DAILY May 05, 2023 12:00am via peg tube Problems Active Problems Problem Classification Problem Date Documented Da te Episodic/Chronic Abdominal pain (6 sources) Abdominal pain; Translations: [Unspecified abdominal pain] 05-15-2023 Episodic Acute cerebrovascular disease (1 source) Cerebral infarction, unspecified; Translations: [Acute ischemic stroke (HCC)] Onset: Chronic Delirium, dementia, and amnestic and other cognitive disorders (6 sources) Vascular dementia ; Translations: [Vascular dementia without behavioral disturbance] Onset: 5 07-09-2024 Chronic Diabetes mellitus with complications (4 sources) Hyperglycemia due to diabetes mellitus; Translations: [Type 2 diabetes mellitus with hyperglycemia] 05-15-2023 Chronic Disorders of lipid metabolism (4 sources) Hyperlipidemia; Translations: [Hyperlipidemia, unspecified] 07-09-2024 Chronic Gastroduodenal ulcer (except hemorrhage) (3 sources) Ulcer of duodenum; Translations: [Duodenal ulcer, unspecified as acute or chronic, without hemorrhage or perforation] Onset: 4 10-21-2023 Chronic Gastrointestinal hemorrhage (2 sources) Acute upper gastrointestinal hemorrhage; Translations: [Gastrointestinal hemorrhage, unspecified] 08-25-2023 Episodic Nausea and vomiting (4 sources) Vomiting; Translations: [Vomiting, unspecified] 05-15-2023 Episodic Other and ill-defined cerebrovascular disease (4 sources) Cerebrovascular disease; Translations: [Cerebrovascular disease, unspecified] 07-09-2024 Chronic Other and ill-defined cerebrovascular disease (2 sources) Cerebrovascular disease, unspecified; Translations: [Cerebrovascular disease, unspecified] Onset: Chronic Other circulatory disease (4 sources) History of embolic cerebrovascular accident; Translations: [Personal history of transient ischemic attack (TIA), and cerebral infarction without residual deficits] 05-15-2023 Episodic Other disorders of stomach and duodenum (2 sources) Pyloric obstruction; Translations: [Adult hypertrophic pyloric stenosis] 08-25-2023 Episodic Other nutritional; endocrine; and metabolic disorders (4 sources) H/O: diabetes mellitus; Translations: [Personal history of other endocrine, nutritional and metabolic disease] 05-15-2023 Episodic Pneumonia (except that caused by tuberculosis or sexually transmitted disease) (10 sources) Pneumonia; Translations: [Pneumonia, unspecified organism] 05-05-2023 Episodic Respiratory failure; insufficiency; arrest (adult) (10 sources) Acute hypoxemic respiratory failure; Translations: [Acute respiratory failure with hypoxia] 05-05-2023 Episodic Septicemia (except in labor) (8 sources) Sepsis without septic shock; Translations: [Sepsis, unspecified organism] 05-06-2023 Episodic Past or Other Problems Problem Classification Problem Date Documented Da te Episodic/Chronic Malaise and fatigue (1 source) Weakness; Translations: [Right sided weakness] Onset: 12-10-2022 Episodic Other connective tissue disease (1 source) Facial weakness; Translations: [Facial droop] Onset: 12-09-2022 Episodic Residual codes; unclassified (1 source) Altered mental status, unspecified; Translations: [Altered mental status, unspecified altered mental status type] Onset: 12-06-2022 Episodic Results Test Name Value Interpretation Reference Range Facility Duplex ultrasound of carotid artery reportOrdered By: Nam Sparks on 08-21-2024 Study report [facility] [address] [place] [address] Carotid Duplex Ultrasound 08/18/24 1307 MR#: [id number] Acct: [id number] Name: DREA COPELAND Rep #:[id number] : 1960 64 From: Nam Sparks MD Attending Dr: Dr. Werner Mccarty MD Status: REG CLI Ordering Dr: Werner Mccarty MD Date: 08/18/24 Location: [facility] Sex: M AA Admitted: Reason For Study Reason For Study: HX CVA Rt. Velocities/BP Lt. Velocities/BP Prox CCA 99.2/9.2 cm/sec. Prox CCA 91.9/11.7 cm/sec. Mid CCA 43.9/12.0 cm/sec. Mid CCA 81.8/13.8 cm/sec. Dist CCA 50.4/12.0 cm/sec. Dist CCA 78.3/16.0 cm/sec. Prox ICA 43.9/10.9 cm/sec. Prox ICA 67.9/16.9 cm/sec. Mid ICA 80.7/18.3 cm/sec. Mid ICA 55.1/11.6 cm/sec. Unable to visualize distal ICA. Dist ICA 68.6/24.4 cm/sec. Rt. ICA/CCA = 1.8. Lt. ICA/CCA = 0.8. Prox ECA 123.4/7.0 cm/sec. Prox ECA 69.9/9.7 cm/sec. Rt. Vert. 63.7/8.5 cm/sec. Lt. Vert. 35.8/7.3 cm/sec. Right Extracranial There is homogeneous, smooth atherosclerotic plaque noted in the right common carotid artery. There is heterogeneous, irregular atherosclerotic plaque noted in the right internal carotid artery. Thedistal right internal carotid artery is not well visualized. The right internal carotid artery is very tortuous. There is heterogeneous, irregular atherosclerotic plaque noted in the right external carotid artery. Antegrade flow is noted in the right vertebral artery. Left Extracranial There is homogeneous, smooth atherosclerotic plaque noted in the left common carotid artery. There is intimal thickening but no significant atherosclerotic plaque noted in the left internal carotid artery. The distal left internal carotid artery is not well visualized. The left internal carotid artery is very tortuous. There is intimal thickening but no significant atherosclerotic plaque noted in the left external carotid artery. Antegrade flow is noted in the left vertebral artery. Procedure Carotid Duplex [id number]. This is a Carotid Duplex examination using B-mode, color flow and specral Doppler. Limited views were obtained due to patient positioning, inability to lay flat. The study was technically difficult. Exam performed in department. VL/Carotid Duplex Ultrasound Interpretation Summary Mild (<50%) stenosis right extracranial internal carotid. The distal right internal carotid artery was not well visualized. No significant atherosclerotic plaque or stenosis noted in the left internal carotid artery. Flow within the vertebral arteries is antegrade bilaterally. Ordering Physician: Werner Mccarty Referring Physician: Juan C Barnes Performed By: Mars Flores, RVT 08/21/242220 Date _ Nam Sparks MD CC: Dr. Juan C Barnes MD; Dr. Werner Mccarty MD ~ Date Dictated: 08/18/24 1307 Date Transcribed: 08/21/242220 Curriculum Assistant: Signed [facility] Other Phone: Carotid Duplex Ultrasoundon 08-18-2024 Carotid Duplex Ultrasound [facility] [address] [place] [id number] Carotid Duplex Ultrasound 08/18/24 1307 MR#: [id number] Acct: [id number] Name: DREA COPELAND Rep #: [id number] : 1960 64 From: Nam Sparks MD Attending Dr: Dr. Werner Mccarty MD Status: R EG CLI Ordering Dr: Werner Mccarty MD Date: 08/18/24 Location: [facility] Sex: M AA Admitted: Reason For Study Reason For Study: HX CVA Rt. Velocities/BP Lt. Velocities/BP Prox CCA 99.2/9.2 cm/sec. Prox CCA 91.9/11.7 cm/sec. Mid CCA 43.9/12.0 cm/sec. Mid CCA 81.8/13.8 cm/sec. Dist CCA 50.4/12.0 cm/sec. Dist CCA 78.3/16.0 cm/sec. Prox ICA 43.9/10.9 cm/sec. Prox ICA 67.9/16.9 cm/sec. Mid ICA 80.7/18.3 cm/sec. Mid ICA 55.1/11.6 cm/sec. Unable to visualize distal ICA. Dist ICA 68.6/24.4 cm/sec. Rt. ICA/CCA = 1.8. Lt. ICA/CCA = 0.8. Prox ECA 123.4/7.0 cm/sec. Prox ECA 69.9/9.7 cm/sec. Rt. Vert. 63.7/8.5 cm/sec. Lt. Vert. 35.8/7.3 cm/sec. Right Extracranial There is homogeneous, smooth atherosclerotic plaque noted in the right common carotid artery. There is heterogeneous, irregular atherosclerotic plaque noted in the right internal carotid artery. The distal right internal carotid artery is not well visualized. The right internal carotid artery is very tortuous. There is heterogeneous, irregular atherosclerotic plaque noted in the right external carotid artery. Antegrade flow is noted in the right vertebral artery. Left Extracranial There is homogeneous, smooth atherosclerotic plaque noted in the left common carotid artery. There is intimal thickening but no significant atherosclerotic plaque noted in the left internal carotid artery. The distal left internal carotid artery is not well visualized. The left internal carotid artery is very tortuous. There is intimal thickening but no significant atherosclerotic plaque noted in the left external carotid artery. Antegrade flow is noted in the left vertebral artery. Procedure Carotid Duplex [id number]. This is a Carotid Duplex examination using B-mode, color flow and specral Doppler. Limited views were obtained due to patient positioning, inability to lay flat. The study was technically difficult. Exam performed in department. VL/Carotid Duplex Ultrasound Interpretation Summary Mild (<50%) stenosis right extracranial internal carotid. The distal right internal carotid artery was not well visualized. No significant atherosclerotic plaque or stenosis noted in the left internal carotid artery. Flow within the vertebral arteries is antegrade bilaterally. Ordering Physician: Werner Mccarty Referring Physician: Juan C Barnes Performed By: Mars Flores RVT 08/21/242220 Date Nam Sparks MD CC: Dr. Juan C Barnes MD; Dr. Werner Mccarty MD Date Dictated: 08/18/24 1307 Date Transcribed: 08/21/242220 Curriculum Assistant: Signed [facility] Echo Completeon 08-18-2024 Echo Complete [facility] [address] [place] [address] Echo Complete 08/18/24 1346 MR#: [id number] Acct: [id number] Name: DREA COPELAND Rep #: [id number] : 1960 64 From: Zane Wetzel MD Attending Dr: Dr. Werner Mccarty MD Status: R EG CLI Ordering Dr: Werner Mccarty MD Date: 08/18/24 Location: [facility] Sex: M AA Admitted: Reason For Study Reason For Study: HTN, HX OF STROKE Procedure This was a 2D Doppler, Color Flow transthoracic echocardiogram. Exam done with patient reclined in wheel chair. Exam performed in department. Left Ventricle Normal LV size. The left ventricular ejection fraction is 60 %. Stage 1 diastolic dysfunction. No regional wall motion abnormalities noted. Right Ventricle Normal RV size. Normal systolic function. Atria Normal left atrium. Normal right atrium. Mitral Valve Normal mitral valve. Tricuspid Valve Normal tricuspid valve. Aortic Valve Trisinus/trileaflet aortic valve. Pulmonic Valve Normal pulmonic valve. Great Vessels Normal aortic root. The pulmonary artery is normal size. Inferior vena cava collapse with respiration. Pericardium/Pleural No pericardial effusion. Medication Unable to complete bubble study, patient declined. MMode/2D Measurements Calculations LVIDd: 3.6 cm IVSd: 1.2 cm LVOT diam: 2.2 cm LVIDs: 2.5 cm LVPWd: 1.1 cm RVDd: 3.0 cm FS: 30.0 % LVOT area: 3.8 cm2 LAV(MOD-bp): 13.3 ml LVAd ap4: 16.4 cm2 LVAd ap2: 14.1 cm2 LAV(MOD-bp) Indexed: 6.1 ml/m2 LVLd ap4: 6.6 cm LVLd ap2: 6.4 cm LAV(MOD-sp2): 14.1 ml EDV(MOD-sp4): 33.2 ml EDV(MOD-sp2): 25.6 ml LAV(MOD-sp4): 10.6 ml EDV(sp4-el): 34.5 ml EDV(sp2-el): 26.4 ml LVAs ap4: 7.5 cm2 LVAs ap2: 6.9 cm2 LVLs ap4: 5.1 cm LVLs ap2: 5.1 cm ESV(MOD-sp4): 9.3 ml ESV(MOD-sp2): 7.8 ml ESV(sp4-el): 9.4 ml ESV(sp2-el): 8.0 ml EF(MOD-sp4): 71.9 % EF(MOD-sp2): 69.4 % EF(sp4-el): 72.8 % SV(MOD-sp4): 23.8 ml SV(MOD-sp2): 17.7 ml SV(sp4-el): 25.1 ml SI(MOD-sp4): 11.0 ml/m2 SI(MOD-sp2): 8.2 ml/m2 Ao sinus diam: 3.[address] Junction: 2.3 cm LA A4 area: 6.6 cm2 LA dimension(2D): 2.6 cm TAPSE: 1.4 cm RA A4 area: 5.7 cm2 Time Measurements MV dec time: 0.25 sec Doppler Measurements Calculations MV E max puja: 47.2 cm/sec Lat Peak E' Puja: 10.1 cm/sec Med Peak E' Puja: 9.2 cm/sec MV A max puja: 78.0 cm/sec E/E' lat: 4.7 E/E' med: 5.1 MV E/A: 0.61 MV dec slope: 191.3 cm/sec2 Ao V2 max: 80.5 cm/sec LV V1 max: 82.5 cm/sec Ao max P.6 mmHg LV V1 max P.7 mmHg Ao V2 mean: 64.0 cm/sec LV V1 mean P.5 mmHg Ao mean P.7 mmHg LV V1 mean: 58.6 cm/sec Ao V2 VTI: 14.1 cm LV V1 VTI: 12.7 cm AV (velocity ratio): 0.90 AMOR(I,D): 3.5 cm2 AMOR(V,D): 3.9 cm2 SV(LVOT): 48.7 ml ECHO/Echo Complete Interpretation Summary The left ventricular ejection fraction is 60 %. Normal LV size. No regional wall motion abnormalities noted. Stage 1 diastolic dysfunction. Ordering Physician: Werner Mccarty Referring Physician: Juan C Barnes Performed By: Briseyda Buckley RDCS 08/18/24 1427 Date Zane Wetzel MD CC: Dr. Juan C Barnes MD; Dr. Werner Mccarty MD Date Dictated: 08/18/24 1346 Date Transcribed: 08/18/24 142 Curriculum Assistant: Signed [facility] Echocardiogram study reportO rdered By: Zane Wetzel on 08-18-2024 Study report [facility] [address] [place] [address] Echo Complete 08/18/24 1346 MR#: [id number] Acct: [id number] Name: DREA COPELAND Rep #:[id number] : 1960 64 From: Zane Myles Attending Dr: Dr. Werner Mccarty MD Status: REG CLI Ordering Dr: Werner Mccarty MD Date: 08/18/24 Location: [facility] Sex: M AA Admitted: Reason For Study Reason For Study: HTN, HX OF STROKE Procedure This was a 2D Doppler, Color Flow transthoracic echocardiogram. Exam done with patient reclined in wheel chair. Exam performed in department. Left Ventricle Normal LV size. The left ventricular ejection fraction is 60 %. Stage 1 diastolic dysfunction. No regional wall motion abnormalities noted. Right Ventricle Normal RV size. Normal systolic function. Atria Normal left atrium. Normal right atrium. Mitral Valve Normal mitral valve. Tricuspid Valve Normal tricuspid valve. Aortic Valve Trisinus/trileaflet aortic valve. Pulmonic Valve Normal pulmonic valve. Great Vessels Normal aortic root. The pulmonary artery is normal size. Inferior vena cava collapse with respiration. Pericardium/Pleural No pericardial effusion. Medication Unable to complete bubble study, patient declined. MMode/2D Measurements & Calculations LVIDd: 3.6 cm IVSd: 1.2 cm LVOT diam: 2.2 cm LVIDs: 2.5 cm LVPWd: 1.1 cm RVDd: 3.0 cm FS: 30.0 % LVOT area: 3.8 cm2 LAV(MOD-bp): 13.3 ml LVAd ap4: 16.4 cm2 LVAd ap2: 14.1 cm2 LAV(MOD-bp) Indexed: 6.1 ml/m2 LVLd ap4: 6.6 cm LVLd ap2: 6.4 cm LAV(MOD-sp2): 14.1 ml EDV(MOD-sp4): 33.2 ml EDV(MOD-sp2): 25.6 ml LAV(MOD-sp4): 10.6 ml EDV(sp4-el): 34.5 ml EDV(sp2-el): 26.4 ml LVAs ap4: 7.5 cm2 LVAs ap2: 6.9 cm2 LVLs ap4: 5.1 cm LVLs ap2: 5.1 cm ESV(MOD-sp4): 9.3 ml ESV(MOD-sp2): 7.8 ml ESV(sp4-el): 9.4 ml ESV(sp2-el): 8.0 ml EF(MOD-sp4): 71.9 % EF(MOD-sp2): 69.4 % EF(sp4-el): 72.8 % SV(MOD-sp4): 23.8 ml SV(MOD-sp2): 17.7 ml SV(sp4-el): 25.1 ml SI(MOD-sp4): 11.0 ml/m2 SI(MOD-sp2): 8.2 ml/m2 Ao sinus diam: 3.[address] Junction: 2.3 cm LA A4 area: 6.6 cm2 LA dimension(2D): 2.6 cm TAPSE: 1.4 cm RA A4 area: 5.7 cm2 Time Measurements MV dec time: 0.25 sec Doppler Measurements & Calculations MV E max puja: 47.2 cm/sec Lat Peak E' Puja: 10.1 cm/sec Med Peak E' Puja: 9.2 cm/sec MV A max puja: 78.0 cm/sec E/E' lat: 4.7 E/E' med: 5.1 MV E/A: 0.61 MV dec slope: 191.3 cm/sec2 Ao V2 max: 80.5 cm/sec LV V1 max: 82.5 cm/sec Ao max P.6 mmHg LV V1 max P.7 mmHg Ao V2 mean: 64.0 cm/sec LV V1 mean P.5 mmHg Ao mean P.7 mmHg LV V1 mean: 58.6 cm/sec Ao V2 VTI: 14.1 cm LV V1 VTI: 12.7 cm AV (velocity ratio): 0.90 AMOR(I,D): 3.5 cm2 AMOR(V,D): 3.9 cm2 SV(LVOT): 48.7 ml ECHO/Echo Complete Interpretation Summary The left ventricular ejection fraction is 60 %. Normal LV size. No regional wall motion abnormalities noted. Stage 1 diastolic dysfunction. Ordering Physician: Werner Mccarty Referring Physician: Juan C Barnes Performed By: Briseyda Buckley RDCS 08/18/24 1427 Date _ Zane Wetzel MD CC: Dr. Juan C Barnes MD; Dr. Werner Mccarty MD ~ Date Dictated: 08/18/24 1346 Date Transcribed: 08/18/241426 Curriculum Assistant: Signed [facility] Work Phone: AT III Func / Immunolon 05-3 AT3 AG, IMMUNOL 124 Normal 72-124 [facility] Comment on above: Order Comment: Test( s) 415684-Ztoracvgbczm Antigenwas developed and its performance characteristicsdetermined by [facility]. It has not been cleared or approvedby the Food and Drug Administration. Performed By: #### L 4500.5000, L101.9900, L503.5510, L3100.1725, L3100.7250, L501.9520, L501.5200, L3100.5600, L3100.7050, L500.4100, L3100.5450, L3100.5800, L3100.5700, L3300.8000, L500.4050, L3100.7325, L3300.0450, L100.0500, L4500.2000, L3100.7300, L3100.8408, L4500.0100, L3300.8200, L503.0106 ####[facility] [address] [place], [place], [address] AT3 FUNCTIONAL 151 High 75-135 [facility] Comment on above: Order Comment: Test( s) 733012-Rymbmiweoeux Antigenwas developed and its performance characteristicsdetermined by [facility]. It has not been cleared or approvedby the Food and Drug Administration. Result Comment: An e levated antithrombin activity is of no known clinical significance. Direct Xa inhibitor anticoagulants such as rivaroxaban, apixaban and edoxaban will lead to spuriously elevated antithrombin activity levels possibly masking a deficiency. Performed By: #### L 4500.5000, L101.9900, L503.5510, L3100.1725, L3100.7250, L501.9520, L501.5200, L3100.5600, L3100.7050, L500.4100, L3100.5450, L3100.5800, L3100.5700, L3300.8000, L500.4050, L3100.7325, L3300.0450, L100.0500, L4500.2000, L3100.7300, L3100.8408, L4500.0100, L3300.8200, L503.0106 ####[facility] [address] [facility] [place], [address] Anticardiolipin IgA,G,Mon ANTICARDIO IgA < 9 Normal 0-11 [facility] Comment on above: Order Comment: Test( s) 486572-Wkxiweopltyz Antigenwas developed and its performance characteristicsdetermined by [facility]. It has not been cleared or approvedby the Food and Drug Administration. Result Comment: Nega tive: <12 Indeterminate: 12 - 20 Low-Med Positive: >20 - 80 High Positive: >80 Performed By: #### L 4500.5000, L101.9900, L503.5510, L3100.1725, L3100.7250, L501.9520, L501.5200, L3100.5600, L3100.7050, L500.4100, L3100.5450, L3100.5800, L3100.5700, L3300.8000, L500.4050, L3100.7325, L3300.0450, L100.0500, L4500.2000, L3100.7300, L3100.8408, L4500.0100, L3300.8200, L503.0106 ####[facility] [address] [facility] [place], [address] ANTICARDIO IgG < 9 Normal 0-14 [facility] Comment on above: Order Comment: Test( s) 409481-Lqzaurmrozoi Antigenwas developed and its performance characteristicsdetermined by [facility]. It has not been cleared or approvedby the Food and Drug Administration. Result Comment: Nega tive: <15 Indeterminate: 15 - 20 Low-Med Positive: >20 - 80 High Positive: >80 Performed By: #### L 4500.5000, L101.9900, L503.5510, L3100.1725, L3100.7250, L501.9520, L501.5200, L3100.5600, L3100.7050, L500.4100, L3100.5450, L3100.5800, L3100.5700, L3300.8000, L500.4050, L3100.7325, L3300.0450, L100.0500, L4500.2000, L3100.7300, L3100.8408, L4500.0100, L3300.8200, L503.0106 ####[facility] [address] [place], [address] Anticardio.IgM < 9 Normal 0-12 [facility] Comment on above: Order Comment: Test( s) 348652-Fznrmhyhoxnz Antigenwas developed and its performance characteristicsdetermined by [facility]. It has not been cleared or approvedby the Food and Drug Administration. Result Comment: Nega tive: <13 Indeterminate: 13 - 20 Low-Med Positive: >20 - 80 High Positive: >80 Performed By: #### L 4500.5000, L101.9900, L503.5510, L3100.1725, L3100.7250, L501.9520, L501.5200, L3100.5600, L3100.7050, L500.4100, L3100.5450, L3100.5800, L3100.5700, L3300.8000, L500.4050, L3100.7325, L3300.0450, L100.0500, L4500.2000, L3100.7300, L3100.8408, L4500.0100, L3300.8200, L503.0106 ####[facility] [address] [facility]. [place], [place], [id number] Complement C3on 07-31-2024 COMP C3 184 mg/dL High 82-167 [facility] Comment on above: Order Comment: Test( s) 597331-Ldglazazrdgy Antigenwas developed and its performance characteristicsdetermined by [facility]. It has not been cleared or approvedby the Food and Drug Administration. Performed By: #### L 4500.5000, L101.9900, L503.5510, L3100.1725, L3100.7250, L501.9520, L501.5200, L3100.5600, L3100.7050, L500.4100, L3100.5450, L3100.5800, L3100.5700, L3300.8000, L500.4050, L3100.7325, L3300.0450, L100.0500, L4500.2000, L3100.7300, L3100.8408, L4500.0100, L3300.8200, L503.0106 ####[facility] [address] [facility]. [place], [place], [id number] Complement C4on 07-31-2024 COMPLEMENT, C4 29 mg/dL Normal 12-38 [facility] Comment on above: Order Comment: Test( s) 738633-Konthtzgbbyh Antigenwas developed and its performance characteristicsdetermined by [facility]. It has not been cleared or approvedby the Food and Drug Administration. Performed By: #### L 4500.5000, L101.9900, L503.5510, L3100.1725, L3100.7250, L501.9520, L501.5200, L3100.5600, L3100.7050, L500.4100, L3100.5450, L3100.5800, L3100.5700, L3300.8000, L500.4050, L3100.7325, L3300.0450, L100.0500, L4500.2000, L3100.7300, L3100.8408, L4500.0100, L3300.8200, L503.0106 ####[facility] [address] [place], [address] Complement CH50on 07-31-2024 COMPLEMENT,CH50 > 60 Normal >41 [facility] Comment on above: Order Comment: Test( s) 828141-Xjwjbsfixyoa Antigenwas developed and its performance characteristicsdetermined by [facility]. It has not been cleared or approvedby the Food and Drug Administration. Result Comment: Age Male Female 1 - 30 days Not Estab. Not Estab. 31 days - 6 months >32 >20 7 months - 17 years >39 >39 >17 years >41 >41 NOTE: The adult (>17 years) reference interval range is used to flag abnormals on this report. If the patient is 17 years old or younger, use the table above to determine out of range values. Performed By: #### L 4500.5000, L101.9900, L503.5510, L3100.1725, L3100.7250, L501.9520, L501.5200, L3100.5600, L3100.7050, L500.4100, L3100.5450, L3100.5800, L3100.5700, L3300.8000, L500.4050, L3100.7325, L3300.0450, L100.0500, L4500.2000, L3100.7300, L3100.8408, L4500.0100, L3300.8200, L503.0106 ####[facility] [address] [place], [address] Fact V Leiden Mutationon 05- 30-2025 FACTOR V LEIDEN Comment Normal . [facility] Comment on above: Order Comment: Test( s) 431503-Bquumktevgem Antigenwas developed and its performance characteristicsdetermined by [facility]. It has not been cleared or approvedby the Food and Drug Administration. Result Comment: Resu lt: c.1601G>A (p.Heg430Hft) - Not Detected This result is not associated with an increased risk for venous thromboembolism. See Additional Clinical Information and Comments. Additional Clinical Information: Venous thromboembolism is a multifactorial disease influenced by genetic, environmental, and circumstantial risk factors. The c.1601G>A (p. Oas838Iii) variant in the F5 gene, commonly referred to as Factor V Leiden, is a genetic risk factor for venous thromboembolism. Heterozygous carriers of this variant have a 6- to 8-fold increased risk for venous thromboembolism. Individuals homozygous for this variant (ie, with a copy of the variant on each chromosome) have an approximately 80-fold increased risk for venous thromboembolism. Individuals who carry both a c.*97G>A variant in the F2 gene and Factor V Leiden have an approximately 20-fold increased risk for venous thromboembolism. Risks are likely to be even higher in more complex genotype combinations involving the F2 c.*97G>A variant and Factor V Leiden (PMID: 28221810). Additional risk factors include but are not limited to: deficiency of protein C, protein S, or antithrombin III, age, male sex, personal or family history of deep vein thromboembolism, smoking, surgery, prolonged immobilization, malignant neoplasm, tamoxifen treatment, raloxifene treatment, oral contraceptive use, hormone replacement therapy, and . Management of thrombotic risk and thrombotic events should follow established guidelines and fit the clinical circumstance. This result cannot predict the occurrence or recurrence of a thrombotic event. Comment: Genetic counseling is recommended to discuss the potential clinical implications of positive results, as well as recommendations for testing family members. Genetic Coordinators are available for health care providers to discuss results at [phone] Test Details: Variant Analyzed: c.1601G>A (p. Grl838Ovi), referred to as Factor V Leiden Methods/Limitations: DNA analysis of the F5 gene (NM_000130.5) was performed by PCR amplification followed by electrophoresis. The diagnostic sensitivity is >99%. Results must be combined with clinical information for the most accurate interpretation. Molecular-based testing is highly accurate, but as in any laboratory test, diagnostic errors may occur. False positive or false negative results may occur for reasons that include genetic variants, blood transfusions, bone marrow transplantation, somatic or tissue-specific mosaicism, mislabeled samples, or erroneous representation of family relationships. This test was developed and its performance characteristics determined by [facility]. It has not been cleared or approved by the Food and Drug Administration. References: Dylan S, Zeny MATHEW, Jer R, Gerson WW, Miles JH; [employer] Professional Practice and Guidelines Committee. Addendum: [place] [employer] consensus statement on factor V Leiden mutation testing. [employer] Med. 2020May 06. doi: 10.1038/[id number]-g. PMID: 08685566. Benedicto PEREZ. Factor V Leiden Thrombophilia. 1998July 15 (Updated 2017Mar 07). In: Steve MP, Bobbi HH, Jared RA, et al., editors. Thien(R) (Internet). [place] ([place]): [facility]; 1401-3905. Available from: https://www.ncbi.nlm.nih.gov/books/VWJ3966/ Reece S, Zeny MATHEW, Rickey X, Aime B, Diana EB, Ana P, Jass CS; [employer] Laboratory Animal Pathology Teacher Committee. Venous thromboembolism laboratory testing (factor V Leiden and factor II c. *97G>A), 2018 update: a technical standard of the [place] [employer] and [employer] ([employer]). Ilana Med. 2018 Feb;20(12): 5374-0711. doi: 10.1038/b47963-354-8211-z. Epub 2017Dec 06. PMID: 86418881. Performed By: #### L 4500.5000, L101.9900, L503.5510, L3100.1725, L3100.7250, L501.9520, L501.5200, L3100.5600, L3100.7050, L500.4100, L3100.5450, L3100.5800, L3100.5700, L3300.8000, L500.4050, L3100.7325, L3300.0450, L100.0500, L4500.2000, L3100.7300, L3100.8408, L4500.0100, L3300.8200, L503.0106 ####[facility] [address] [place], [place], [address] Reviewed By Comment Normal . [facility] Comment on above: Order Comment: Test( s) 858542-Mamrjfnpqpog Antigenwas developed and its performance characteristicsdetermined by [facility]. It has not been cleared or approvedby the Food and Drug Administration. Result Comment: Tech nical Component performed at [facility] [place] Professional Component performed by: Leno Allen, PhD, [facility] [address] [id number], [facility], [address] [facility] [place] [address] Performed By: #### L 4500.5000, L101.9900, L503.5510, L3100.1725, L3100.7250, L501.9520, L501.5200, L3100.5600, L3100.7050, L500.4100, L3100.5450, L3100.5800, L3100.5700, L3300.8000, L500.4050, L3100.7325, L3300.0450, L100.0500, L4500.2000, L3100.7300, L3100.8408, L4500.0100, L3300.8200, L503.0106 ####[facility] [address] [place], [place], [address] Factor II, DNA Analysison FACTOR II, DNA Comment Normal . [facility] Comment on above: Order Comment: Test( s) 569014-Kapxltyunrnf Antigenwas developed and its performance characteristicsdetermined by [facility]. It has not been cleared or approvedby the Food and Drug Administration. Result Comment: Resu lt: c.*97G>A - Not Detected This result is not associated with an increased risk for venous thromboembolism. See Additional Clinical Information and Comments. Additional Clinical Information: Venous thromboembolism is a multifactorial disease influenced by genetic, environmental, and circumstantial risk factors. The c.*97G>A variant in the F2 gene is a genetic risk factor for venous thromboembolism. Heterozygous carriers have a 2- to 4-fold increased risk for venous thromboembolism. Homozygotes for the c.*97G>A variant are rare. The annual risk of VTE in homozygotes has been reported to be 1.1%/year. Individuals who carry both a c.*97G>A variant in the F2 gene and a c.1601G>A (p. Eui908Qfy) variant in the F5 gene (commonly referred to as Factor V Leiden) have an approximately 20- fold increased risk for venous thromboembolism. Risks are likely to be even higher in more complex genotype combinations involving the F2 c.*97G>A variant and Factor V Leiden (PMID: 85595980). Additional risk factors include but are not limited to: deficiency of protein C, protein S, or antithrombin III, age, male sex, personal or family history of deep vein thromboembolism, smoking, surgery, prolonged immobilization, malignant neoplasm, tamoxifen treatment, raloxifene treatment, oral contraceptive use, hormone replacement therapy, and . Management of thrombotic risk and thrombotic events should follow established guidelines and fit the clinical circumstance. This result cannot predict the occurrence or recurrence of a thrombotic event. Comments: Genetic counseling is recommended to discuss the potential clinical implications of positive results, as well as recommendations for testing family members. Genetic Coordinators are available for health care providers to discuss results at [phone] Test Details: Variant analyzed: c.*97G>A, previously referred to as N03026T Methods/Limitations: DNA analysis of the F2 gene (NM_000506.5) was performed by PCR amplification followed by restriction enzyme analysis. The diagnostic sensitivity is >99%. Results must be combined with clinical information for the most accurate interpretation. Molecular-based testing is highly accurate, but as in any laboratory test, diagnostic errors may occur. False positive or false negative results may occur for reasons that include genetic variants, blood transfusions, bone marrow transplantation, somatic or tissue-specific mosaicism, mislabeled samples, or erroneous representation of family relationships. This test was developed and its performance characteristics determined by [facility]. It has not been cleared or approved by the Food and Drug Administration. References: Dylan S, Zeny AK, Jer R, Gerson WW, Miles JH; [employer] Professional Practice and Guidelines Committee. Addendum: [place] [employer] consensus statement on factor V Leiden mutation testing. Ilana Med. 2020May 06. doi: 10.1038/[id number]-j. PMID: 02031370. Benedicto PEREZ. Prothrombin Thrombophilia. 2005Sep 25 [Updated 2020Apr 07]. In: Steve MP, Bobbi HH, Jared RA, et al., editors. Thien(R) [Internet]. [place] ([place]): [facility]; 7921-9343. Available from: https://www.ncbi.nlm.nih.gov/books/NNE4111/ Reece S, Zeny AK, Rickey X, Aime B, Diana EB, Ana P, Jass CS; [employer] Laboratory Animal Pathology Teacher Committee. Venous thromboembolism laboratory testing (factor V Leiden and factor II c.*97G>A), 2018 update: a technical standard of the [place] [employer] ([employer]MG). Ilana Med. 2018 Feb;20(12):8703-3997. doi: 10.1038/[id number]-p. Epub 2017Dec 06. PMID: 64718222. Performed By: #### L 4500.5000, L101.9900, L503.5510, L3100.1725, L3100.7250, L501.9520, L501.5200, L3100.5600, L3100.7050, L500.4100, L3100.5450, L3100.5800, L3100.5700, L3300.8000, L500.4050, L3100.7325, L3300.0450, L100.0500, L4500.2000, L3100.7300, L3100.8408, L4500.0100, L3300.8200, L503.0106 ####[facility] [address], [address] Folates, RBCon 07-31-2024 Fol.,Hemolysate 536.0 ng/mL Normal Not Estab. [facility] Comment on above: Order Comment: Test( s) 850485-Yctuwukqbwbb Antigenwas developed and its performance characteristicsdetermined by [facility]. It has not been cleared or approvedby the Food and Drug Administration. Performed By: #### L 4500.5000, L101.9900, L503.5510, L3100.1725, L3100.7250, L501.9520, L501.5200, L3100.5600, L3100.7050, L500.4100, L3100.5450, L3100.5800, L3100.5700, L3300.8000, L500.4050, L3100.7325, L3300.0450, L100.0500, L4500.2000, L3100.7300, L3100.8408, L4500.0100, L3300.8200, L503.0106 ####[facility] [address] [facility] [place], [address] Folate, RBC 1087 ng/mL Normal >498 [facility] Comment on above: Order Comment: Test( s) 178296-Syjhzujgzlwb Antigenwas developed and its performance characteristicsdetermined by [facility]. It has not been cleared or approvedby the Food and Drug Administration. Performed By: #### L 4500.5000, L101.9900, L503.5510, L3100.1725, L3100.7250, L501.9520, L501.5200, L3100.5600, L3100.7050, L500.4100, L3100.5450, L3100.5800, L3100.5700, L3300.8000, L500.4050, L3100.7325, L3300.0450, L100.0500, L4500.2000, L3100.7300, L3100.8408, L4500.0100, L3300.8200, L503.0106 ####[facility] [address] [facility]. [place], [place], [address] Hematocrit (Bld) [Volume fraction] 49.3 % Normal 37.5-51.0 [facility] Comment on above: Order Comment: Test( s) 509784-Gxdtptuigxli Antigenwas developed and its performance characteristicsdetermined by [facility]. It has not been cleared or approvedby the Food and Drug Administration. Performed By: #### L 4500.5000, L101.9900, L503.5510, L3100.1725, L3100.7250, L501.9520, L501.5200, L3100.5600, L3100.7050, L500.4100, L3100.5450, L3100.5800, L3100.5700, L3300.8000, L500.4050, L3100.7325, L3300.0450, L100.0500, L4500.2000, L3100.7300, L3100.8408, L4500.0100, L3300.8200, L503.0106 ####[facility] [address] [place], [place], [address] L3300.8200on 07-31-2024 VITAMIN B6 29.1 ug/L Normal 3.4-65.2 [facility] Comment on above: Order Comment: Test( s) 308627-Ywciijhjboqw Antigenwas developed and its performance characteristicsdetermined by [facility]. It has not been cleared or approvedby the Food and Drug Administration. Result Comment: Defi ciency: <3.4 Marginal: 3.4 - 5.1 Adequate: >5.1 Performed By: #### L 4500.5000, L101.9900, L503.5510, L3100.1725, L3100.7250, L501.9520, L501.5200, L3100.5600, L3100.7050, L500.4100, L3100.5450, L3100.5800, L3100.5700, L3300.8000, L500.4050, L3100.7325, L3300.0450, L100.0500, L4500.2000, L3100.7300, L3100.8408, L4500.0100, L3300.8200, L503.0106 ####[facility] [address] [place], [address] Lupus Anticoagulant Compon 0 07-31-2024 aPTT Coag (Bld) [Time] 25.6 s Normal 0.0-43.5 [facility] Comment on above: Order Comment: Test( s) 870495-Urdwjsbryosa Antigenwas developed and its performance characteristicsdetermined by [facility]. It has not been cleared or approvedby the Food and Drug Administration. Performed By: #### L 4500.5000, L101.9900, L503.5510, L3100.1725, L3100.7250, L501.9520, L501.5200, L3100.5600, L3100.7050, L500.4100, L3100.5450, L3100.5800, L3100.5700, L3300.8000, L500.4050, L3100.7325, L3300.0450, L100.0500, L4500.2000, L3100.7300, L3100.8408, L4500.0100, L3300.8200, L503.0106 ####[facility] [address] [facility]. [place], [place], [address] DILUTE PT (dPT) 36.9 sec Normal 0.0-47.6 [facility] Comment on above: Order Comment: Test( s) 685720-Luikitmekypj Antigenwas developed and its performance characteristicsdetermined by [facility]. It has not been cleared or approvedby the Food and Drug Administration. Performed By: #### L 4500.5000, L101.9900, L503.5510, L3100.1725, L3100.7250, L501.9520, L501.5200, L3100.5600, L3100.7050, L500.4100, L3100.5450, L3100.5800, L3100.5700, L3300.8000, L500.4050, L3100.7325, L3300.0450, L100.0500, L4500.2000, L3100.7300, L3100.8408, L4500.0100, L3300.8200, L503.0106 ####[facility] [address] [facility] [place], [address] dPT Conf. Ratio 1.27 Ratio Normal 0.00-1.34 [facility] Comment on above: Order Comment: Test( s) 405746-Zqqhcplbjznn Antigenwas developed and its performance characteristicsdetermined by [facility]. It has not been cleared or approvedby the Food and Drug Administration. Performed By: #### L 4500.5000, L101.9900, L503.5510, L3100.1725, L3100.7250, L501.9520, L501.5200, L3100.5600, L3100.7050, L500.4100, L3100.5450, L3100.5800, L3100.5700, L3300.8000, L500.4050, L3100.7325, L3300.0450, L100.0500, L4500.2000, L3100.7300, L3100.8408, L4500.0100, L3300.8200, L503.0106 ####[facility] [address] [facility] [place], [address] DRVVT 39.5 sec Normal 0.0-47.0 [facility] Comment on above: Order Comment: Test( s) 610067-Qiwidijjbpcq Antigenwas developed and its performance characteristicsdetermined by [facility]. It has not been cleared or approvedby the Food and Drug Administration. Performed By: #### L 4500.5000, L101.9900, L503.5510, L3100.1725, L3100.7250, L501.9520, L501.5200, L3100.5600, L3100.7050, L500.4100, L3100.5450, L3100.5800, L3100.5700, L3300.8000, L500.4050, L3100.7325, L3300.0450, L100.0500, L4500.2000, L3100.7300, L3100.8408, L4500.0100, L3300.8200, L503.0106 ####[facility] [address] [facility] [place], [address] Interpretation Comment: Normal . [facility] Comment on above: Order Comment: Test( s) 246722-Xarmzpykrmpo Antigenwas developed and its performance characteristicsdetermined by [facility]. It has not been cleared or approvedby the Food and Drug Administration. Result Comment: No l upus anticoagulant was detected. Performed By: #### L 4500.5000, L101.9900, L503.5510, L3100.1725, L3100.7250, L501.9520, L501.5200, L3100.5600, L3100.7050, L500.4100, L3100.5450, L3100.5800, L3100.5700, L3300.8000, L500.4050, L3100.7325, L3300.0450, L100.0500, L4500.2000, L3100.7300, L3100.8408, L4500.0100, L3300.8200, L503.0106 ####[facility] [address] [place], [address] THROMBIN TIME 22.6 sec Normal 0.0-23.0 [facility] Comment on above: Order Comment: Test( s) 867393-Dlhdppyzudhu Antigenwas developed and its performance characteristicsdetermined by [facility]. It has not been cleared or approvedby the Food and Drug Administration. Performed By: #### L 4500.5000, L101.9900, L503.5510, L3100.1725, L3100.7250, L501.9520, L501.5200, L3100.5600, L3100.7050, L500.4100, L3100.5450, L3100.5800, L3100.5700, L3300.8000, L500.4050, L3100.7325, L3300.0450, L100.0500, L4500.2000, L3100.7300, L3100.8408, L4500.0100, L3300.8200, L503.0106 ####[facility] [address] [place], [address] Protein C Antigenon 08-01-19 25 PROTEIN C Ag 126 Normal 60-150 [facility] [facility] Comment on above: Order Comment: Test( s) 728999-Swnmsjjctmdy Antigenwas developed and its performance characteristicsdetermined by [employer]. It has not been cleared or approvedby the Food and Drug Administration. Performed By: #### L 4500.5000, L101.9900, L503.5510, L3100.1725, L3100.7250, L501.9520, L501.5200, L3100.5600, L3100.7050, L500.4100, L3100.5450, L3100.5800, L3100.5700, L3300.8000, L500.4050, L3100.7325, L3300.0450, L100.0500, L4500.2000, L3100.7300, L3100.8408, L4500.0100, L3300.8200, L503.0106 ####[facility] [address], [address] Protein C, Functionalon 07-04 PROTEIN C,FUNC 135 Normal 73-180 [facility] Comment on above: Order Comment: Test( s) 745194-Lsclygehknbb Antigenwas developed and its performance characteristicsdetermined by [employer]. It has not been cleared or approvedby the Food and Drug Administration. Result Comment: Perf ormed at: [address] [id number] [place] Reamer: Bandar De Anda MD, Phone: [phone] Performed at: [address] [id number] [place] Reamer: Jorge Calderon PhD, Phone: [phone] Performed at: [facility] [address] [place], [place] [id number] [place] Reamer: Arjun Flanagan [facility], Phone: [phone] Performed By: #### L 4500.5000, L101.9900, L503.5510, L3100.1725, L3100.7250, L501.9520, L501.5200, L3100.5600, L3100.7050, L500.4100, L3100.5450, L3100.5800, L3100.5700, L3300.8000, L500.4050, L3100.7325, L3300.0450, L100.0500, L4500.2000, L3100.7300, L3100.8408, L4500.0100, L3300.8200, L503.0106 ####[facility] [address] [facility]. [place], [place], [id number] Protein S Antigenon 08-01-19 25 PROTEIN S, FREE 120 Normal 61-136 [facility] Comment on above: Order Comment: Test( s) 277062-Pxjcncsqapiz Antigenwas developed and its performance characteristicsdetermined by [employer]. It has not been cleared or approvedby the Food and Drug Administration. Performed By: #### L 4500.5000, L101.9900, L503.5510, L3100.1725, L3100.7250, L501.9520, L501.5200, L3100.5600, L3100.7050, L500.4100, L3100.5450, L3100.5800, L3100.5700, L3300.8000, L500.4050, L3100.7325, L3300.0450, L100.0500, L4500.2000, L3100.7300, L3100.8408, L4500.0100, L3300.8200, L503.0106 ####[facility] [address] [facility]. [place], [place], [id number] PROTEIN S,TOTAL 95 Normal 60-150 [facility] Comment on above: Order Comment: Test( s) 743267-Apoiqzehnyem Antigenwas developed and its performance characteristicsdetermined by [employer] [employer]. It has not been cleared or approvedby the Food and Drug Administration. Result Comment: This test was developed and its performance characteristics determined by [facility]. It has not been cleared or approved by the Food and Drug Administration. Performed By: #### L 4500.5000, L101.9900, L503.5510, L3100.1725, L3100.7250, L501.9520, L501.5200, L3100.5600, L3100.7050, L500.4100, L3100.5450, L3100.5800, L3100.5700, L3300.8000, L500.4050, L3100.7325, L3300.0450, L100.0500, L4500.2000, L3100.7300, L3100.8408, L4500.0100, L3300.8200, L503.0106 ####[facility] [address] [place], [place], [id number] Protein S, Functionalon 07-04 PROTEIN S, FUNC 97 Normal 63-140 [facility] Comment on above: Order Comment: Test( s) 943908-Vxhhvwwvcbbi Antigenwas developed and its performance characteristicsdetermined by [employer]. It has not been cleared or approvedby the Food and Drug Administration. Result Comment: Prot ein S activity may be falsely increased (masking an abnormal, low result) in patients receiving direct Xa inhibitor (e.g., rivaroxaban, apixaban, edoxaban) or a direct thrombin inhibitor (e.g., dabigatran) anticoagulant treatment due to assay interference by these drugs. Performed By: #### L 4500.5000, L101.9900, L503.5510, L3100.1725, L3100.7250, L501.9520, L501.5200, L3100.5600, L3100.7050, L500.4100, L3100.5450, L3100.5800, L3100.5700, L3300.8000, L500.4050, L3100.7325, L3300.0450, L100.0500, L4500.2000, L3100.7300, L3100.8408, L4500.0100, L3300.8200, L503.0106 ####[facility] [address] [place], [place], [id number] Vitamin B1, Thiamineon 07-31 VIT B1 THIAMINE 156.9 nmol/L Normal 66.5-200.0 [facility] Comment on above: Order Comment: Test( s) 483736-Uqxawbrjfjyz Antigenwas developed and its performance characteristicsdetermined by [employer]. It has not been cleared or approvedby the Food and Drug Administration. Performed By: #### L 4500.5000, L101.9900, L503.5510, L3100.1725, L3100.7250, L501.9520, L501.5200, L3100.5600, L3100.7050, L500.4100, L3100.5450, L3100.5800, L3100.5700, L3300.8000, L500.4050, L3100.7325, L3300.0450, L100.0500, L4500.2000, L3100.7300, L3100.8408, L4500.0100, L3300.8200, L503.0106 ####[facility] [address], [address] CASI w/ Reflex Mult Confirmon 07-28-2024 ANTI-DNA (DS)AB TNP Normal [facility] Comment on above: Performed By: #### L 4500.5000, L101.9900, L503.5510, L3100.1725, L3100.7250, L501.9520, L501.5200, L3100.5600, L3100.7050, L500.4100, L3100.5450, L3100.5800, L3100.5700, L3300.8000, L500.4050, L3100.7325, L3300.0450, L100.0500, L4500.2000, L3100.7300, L3100.8408, L4500.0100, L3300.8200, L503.0106 #### [facility] [address] [place], [address] ANTI-SS-A TNP Normal [facility] Comment on above: Performed By: #### L 4500.5000, L101.9900, L503.5510, L3100.1725, L3100.7250, L501.9520, L501.5200, L3100.5600, L3100.7050, L500.4100, L3100.5450, L3100.5800, L3100.5700, L3300.8000, L500.4050, L3100.7325, L3300.0450, L100.0500, L4500.2000, L3100.7300, L3100.8408, L4500.0100, L3300.8200, L503.0106 #### [facility] [address] [place], [place], [id number] ANTI-SS-B TNP Normal [facility] Comment on above: Performed By: #### L 4500.5000, L101.9900, L503.5510, L3100.1725, L3100.7250, L501.9520, L501.5200, L3100.5600, L3100.7050, L500.4100, L3100.5450, L3100.5800, L3100.5700, L3300.8000, L500.4050, L3100.7325, L3300.0450, L100.0500, L4500.2000, L3100.7300, L3100.8408, L4500.0100, L3300.8200, L503.0106 #### [facility] [address] [place], [place], [id number] Ammoniaon 07-20-2024 Ammonia (P) [Moles/Vol] 55.6 umol/L Normal 16-60 [facility] Comment on above: Order Comment: CURT Myles ON ORIG. DRAW Performed By: #### L 4500.5000, L101.9900, L503.5510, L3100.1725, L3100.7250, L501.9520, L501.5200, L3100.5600, L3100.7050, L500.4100, L3100.5450, L3100.5800, L3100.5700, L3300.8000, L500.4050, L3100.7325, L3300.0450, L100.0500, L4500.2000, L3100.7300, L3100.8408, L4500.0100, L3300.8200, L503.0106 ####[facility] [address] [place], [address] Anion gap in Serum or Plasma Ordered By: Wernerheidy Mccarty on 07-20-2024 Anion gap [Moles/Vol] 11 mmol/L 5-15 [facility] BUN/creatinine ratioOrdered By: Werner [facility] on 07-20-2024 Urea nitrogen/Creatinine [Mass ratio] 24.9 mg/mg High 10-20 [facility] Bilirubin, totalOrdered By: [facility] 07-20-2024 Bilirubin [Mass/Vol] 0.30 mg/dL 0.00-1.30 [facility] Blood or tissue coagulation factor II targeted mutation analysis by molecular geneticOrdered By: Wernerheidy Mccarty on 07-20-2024 F2 gene targeted mutation analysis [employer] Nom (Bld/Tiss) Comment . [facility] Comment on above: Result: c.*97G>A - N ot DetectedThis result is not associated with an increased risk for venousthromboembolism. See Additional Clinical Information andComments.Additional Clinical Information:Venous thromboembolism is a multifactorial disease influenced bygenetic, environmental, and circumstantial risk factors. The c.*97G>Avariant in the F2 gene is a genetic risk factor for venousthromboembolism. Heterozygous carriers have a 2- to 4-fold increasedrisk for venous thromboembolism. Homozygotes for the c.*97G>A variantare rare. The annual risk of VTE in homozygotes has been reported santo 1.1%/year. Individuals who carry both a c.*97G>A variant in theF2 gene and a c.1601G>A (p. Tij224Ais) variant in the F5 gene(commonly referred to as Factor V Leiden) have an approximately 20-fold increased risk for venous thromboembolism. Risks are likely santo even higher in more complex genotype combinations involving theF2 c.*97G>A variant and Factor V Leiden (PMID: 55051009). Additionalrisk factors include but are not limited to: deficiency of protein C,protein S, or antithrombin III, age, male sex, personal or familyhistory of deep vein thromboembolism, smoking, surgery, prolongedimmobilization, malignant neoplasm, tamoxifen treatment, raloxifenetreatment, oral contraceptive use, hormone replacement therapy, andpregnancy. Management of thrombotic risk and thrombotic events shouldfollow established guidelines and fit the clinical circumstance. Thisresult cannot predict the occurrence or recurrence of a thromboticevent.Comments:Genetic counseling is recommended to discuss the potential clinicalimplications of positive results, as well as recommendations fortesting family members.Genetic Coordinators are available for health care providers to discussresults at [phone] Details:Variant analyzed: c.*97G>A, previously referred to as V03753MRhkzhhz/Limitations:DNA analysis of the F2 gene (NM_000506.5) was performed by PCRamplification followed by restriction enzyme analysis. The diagnosticsensitivity is >99%. Results must be combined with clinicalinformation for the most accurate interpretation. Molecular-basedtesting is highly accurate, but as in any laboratory test, diagnosticerrors may occur. False positive or false negative results may occurfor reasons that include genetic variants, blood transfusions, bonemarrow transplantation, somatic or tissue-specific mosaicism,mislabeled samples, or erroneous representation of familyrelationships.This test was developed and its performance characteristics determinedby [employer]. It has not been cleared or approved by the Food and DrugAdministration.References:Dylan S, Zeny AK, Jer R, Gerson WW, Miles JH; [employer] ProfessionalPractice and Guidelines Committee. Addendum: [place] [employer] consensus statement on factor V Leiden mutationtesting. Ilana Med. 2020May 06. doi: 10.1038/e64864-592-47121-a.PMID: 57625951.Benedicto PEREZ. Prothrombin Thrombophilia. 2005Sep 25[Updated 2020Apr 07]. In: Steve MP, Bobbi YI, Jared RA, et al.,editors. Thien(R) [Internet]. [place] ([place]): [facility]; 7854-5149. Available from:https://www.ncbi.nlm.nih.gov/books/TOA6556/Reece S, Zeny AK, Rickey X, Aime B, Diana EB, Ana P, Jass CS;[facility] Laboratory Animal Pathology Teacher Committee. Venous thromboembolismlaboratory testing (factor V Leiden and factor II c.*97G>A),2018 update: a technical standard of the [place] [employer] ([employer]). Ilana Med. 2018 Feb;20(12):9762-6861.doi: 10.1038/[id number]-p. Epub 2017Dec 06. PMID: 24163390. CBC-Complete Blood Cnt No Di ffon 07-20-2024 Erythrocyte distribution width (RBC) [Ratio] 12.2 % Normal 11.6-14.6 [facility] Comment on above: Performed By: #### L 4500.5000, L101.9900, L503.5510, L3100.1725, L3100.7250, L501.9520, L501.5200, L3100.5600, L3100.7050, L500.4100, L3100.5450, L3100.5800, L3100.5700, L3300.8000, L500.4050, L3100.7325, L3300.0450, L100.0500, L4500.2000, L3100.7300, L3100.8408, L4500.0100, L3300.8200, L503.0106 #### [facility] [address], [address] Hematocrit (Bld) [Volume fraction] 46.5 % Normal 40-54 [facility] Comment on above: Performed By: #### L 4500.5000, L101.9900, L503.5510, L3100.1725, L3100.7250, L501.9520, L501.5200, L3100.5600, L3100.7050, L500.4100, L3100.5450, L3100.5800, L3100.5700, L3300.8000, L500.4050, L3100.7325, L3300.0450, L100.0500, L4500.2000, L3100.7300, L3100.8408, L4500.0100, L3300.8200, L503.0106 #### [facility] [address] [place], [address] Hemoglobin (Bld) [Mass/Vol] 14.7 g/dL Normal 13.0-16.5 [facility] Comment on above: Performed By: #### L 4500.5000, L101.9900, L503.5510, L3100.1725, L3100.7250, L501.9520, L501.5200, L3100.5600, L3100.7050, L500.4100, L3100.5450, L3100.5800, L3100.5700, L3300.8000, L500.4050, L3100.7325, L3300.0450, L100.0500, L4500.2000, L3100.7300, L3100.8408, L4500.0100, L3300.8200, L503.0106 #### [facility] [address] [place], [address] ( MCH (RBC) [Entitic mass] 27.5 pg Normal 27.0-32.0 [facility] Comment on above: Performed By: #### L 4500.5000, L101.9900, L503.5510, L3100.1725, L3100.7250, L501.9520, L501.5200, L3100.5600, L3100.7050, L500.4100, L3100.5450, L3100.5800, L3100.5700, L3300.8000, L500.4050, L3100.7325, L3300.0450, L100.0500, L4500.2000, L3100.7300, L3100.8408, L4500.0100, L3300.8200, L503.0106 #### [facility] [address] [facility], [address] MCHC (RBC) [Mass/Vol] 31.6 g/dL Low 32-36 [facility] Comment on above: Performed By: #### L 4500.5000, L101.9900, L503.5510, L3100.1725, L3100.7250, L501.9520, L501.5200, L3100.5600, L3100.7050, L500.4100, L3100.5450, L3100.5800, L3100.5700, L3300.8000, L500.4050, L3100.7325, L3300.0450, L100.0500, L4500.2000, L3100.7300, L3100.8408, L4500.0100, L3300.8200, L503.0106 #### [facility] [address] [facility] [address] [place], [place], [id number] MCV (RBC) [Entitic vol] 87.1 fL Normal 80-94 [facility] Comment on above: Performed By: #### L 4500.5000, L101.9900, L503.5510, L3100.1725, L3100.7250, L501.9520, L501.5200, L3100.5600, L3100.7050, L500.4100, L3100.5450, L3100.5800, L3100.5700, L3300.8000, L500.4050, L3100.7325, L3300.0450, L100.0500, L4500.2000, L3100.7300, L3100.8408, L4500.0100, L3300.8200, L503.0106 #### [facility] [address] [place], [place], [id number] Platelet mean volume (Bld) [Entitic vol] 13.8 fL High 6.2-12.0 [facility] Comment on above: Performed By: #### L 4500.5000, L101.9900, L503.5510, L3100.1725, L3100.7250, L501.9520, L501.5200, L3100.5600, L3100.7050, L500.4100, L3100.5450, L3100.5800, L3100.5700, L3300.8000, L500.4050, L3100.7325, L3300.0450, L100.0500, L4500.2000, L3100.7300, L3100.8408, L4500.0100, L3300.8200, L503.0106 #### [facility] [address] [place], [place], [id number] Platelets (Bld) [#/Vol] 158 10*3/uL Normal 150-450 [facility] Comment on above: Performed By: #### L 4500.5000, L101.9900, L503.5510, L3100.1725, L3100.7250, L501.9520, L501.5200, L3100.5600, L3100.7050, L500.4100, L3100.5450, L3100.5800, L3100.5700, L3300.8000, L500.4050, L3100.7325, L3300.0450, L100.0500, L4500.2000, L3100.7300, L3100.8408, L4500.0100, L3300.8200, L503.0106 #### [facility]. [place], [place], [address] RBC (Bld) [#/Vol] 5.34 10*6/uL Normal 4.6-6.2 [facility] Comment on above: Performed By: #### L 4500.5000, L101.9900, L503.5510, L3100.1725, L3100.7250, L501.9520, L501.5200, L3100.5600, L3100.7050, L500.4100, L3100.5450, L3100.5800, L3100.5700, L3300.8000, L500.4050, L3100.7325, L3300.0450, L100.0500, L4500.2000, L3100.7300, L3100.8408, L4500.0100, L3300.8200, L503.0106 #### [facility] [address] [place], [address] RDW SD 38.5 fl Normal 35.1-43.9 [facility] Comment on above: Performed By: #### L 4500.5000, L101.9900, L503.5510, L3100.1725, L3100.7250, L501.9520, L501.5200, L3100.5600, L3100.7050, L500.4100, L3100.5450, L3100.5800, L3100.5700, L3300.8000, L500.4050, L3100.7325, L3300.0450, L100.0500, L4500.2000, L3100.7300, L3100.8408, L4500.0100, L3300.8200, L503.0106 #### [facility] [address] [place], [address] WBC (Bld) [#/Vol] 5.2 10*3/uL Normal 4.4-11.0 [facility] Comment on above: Performed By: #### L 4500.5000, L101.9900, L503.5510, L3100.1725, L3100.7250, L501.9520, L501.5200, L3100.5600, L3100.7050, L500.4100, L3100.5450, L3100.5800, L3100.5700, L3300.8000, L500.4050, L3100.7325, L3300.0450, L100.0500, L4500.2000, L3100.7300, L3100.8408, L4500.0100, L3300.8200, L503.0106 #### [facility] [address] [place], [address] Calculated very low density lipoprotein (VLDL) cholesterol measurementOrdered By: Werner Mccarty on 07-20-2024 Calculated very low density lipoprotein (VLDL) cholesterol measurement 37 mg/dL 5-40 [facility] Carbon dioxide, total [Moles /volume] in Central venous bloodOrdered By: Werner Mccarty on 07-20-2024 CO2 [Moles/Vol] 26.7 mmol/L 21.0-32.0 [facility] Chloride assayOrdered By: Ra zain Mccarty on 07-20-2024 Chloride [Moles/Vol] 101 mmol/L 98-108 [facility] Comprehensive Metabolic Prof ilon 07-20-2024 Albumin [Mass/Vol] 4.6 g/dL Normal 3.4-4.8 [facility] Comment on above: Performed By: #### L 4500.5000, L101.9900, L503.5510, L3100.1725, L3100.7250, L501.9520, L501.5200, L3100.5600, L3100.7050, L500.4100, L3100.5450, L3100.5800, L3100.5700, L3300.8000, L500.4050, L3100.7325, L3300.0450, L100.0500, L4500.2000, L3100.7300, L3100.8408, L4500.0100, L3300.8200, L503.0106 #### [facility] [address] [facility] [place], [address] Albumin/Globulin [Mass ratio] 1.5 {ratio} Normal 0.9-2.4 [facility] Comment on above: Performed By: #### L 4500.5000, L101.9900, L503.5510, L3100.1725, L3100.7250, L501.9520, L501.5200, L3100.5600, L3100.7050, L500.4100, L3100.5450, L3100.5800, L3100.5700, L3300.8000, L500.4050, L3100.7325, L3300.0450, L100.0500, L4500.2000, L3100.7300, L3100.8408, L4500.0100, L3300.8200, L503.0106 #### [facility] [address] [facility] [place], [address] ALK PHOS 178 U/L High 40-129 [facility] Comment on above: Performed By: #### L 4500.5000, L101.9900, L503.5510, L3100.1725, L3100.7250, L501.9520, L501.5200, L3100.5600, L3100.7050, L500.4100, L3100.5450, L3100.5800, L3100.5700, L3300.8000, L500.4050, L3100.7325, L3300.0450, L100.0500, L4500.2000, L3100.7300, L3100.8408, L4500.0100, L3300.8200, L503.0106 #### [facility] [address] [facility] [place], [address] ALT [Catalytic activity/Vol] 27 U/L Normal <=46 [facility] Comment on above: Performed By: #### L 4500.5000, L101.9900, L503.5510, L3100.1725, L3100.7250, L501.9520, L501.5200, L3100.5600, L3100.7050, L500.4100, L3100.5450, L3100.5800, L3100.5700, L3300.8000, L500.4050, L3100.7325, L3300.0450, L100.0500, L4500.2000, L3100.7300, L3100.8408, L4500.0100, L3300.8200, L503.0106 #### [facility] [address] [place], [address] AST [Catalytic activity/Vol] 18 U/L Normal <=37 [facility] Comment on above: Performed By: #### L 4500.5000, L101.9900, L503.5510, L3100.1725, L3100.7250, L501.9520, L501.5200, L3100.5600, L3100.7050, L500.4100, L3100.5450, L3100.5800, L3100.5700, L3300.8000, L500.4050, L3100.7325, L3300.0450, L100.0500, L4500.2000, L3100.7300, L3100.8408, L4500.0100, L3300.8200, L503.0106 #### [facility] [address] [facility] [place], [address] Bilirubin [Mass/Vol] 0.30 mg/dL Normal 0.00-1.30 [facility] Comment on above: Performed By: #### L 4500.5000, L101.9900, L503.5510, L3100.1725, L3100.7250, L501.9520, L501.5200, L3100.5600, L3100.7050, L500.4100, L3100.5450, L3100.5800, L3100.5700, L3300.8000, L500.4050, L3100.7325, L3300.0450, L100.0500, L4500.2000, L3100.7300, L3100.8408, L4500.0100, L3300.8200, L503.0106 #### [facility] [address] [facility] [place], [address] BUN/CRE 24.9 RATIO High 10-20 [facility] Comment on above: Performed By: #### L 4500.5000, L101.9900, L503.5510, L3100.1725, L3100.7250, L501.9520, L501.5200, L3100.5600, L3100.7050, L500.4100, L3100.5450, L3100.5800, L3100.5700, L3300.8000, L500.4050, L3100.7325, L3300.0450, L100.0500, L4500.2000, L3100.7300, L3100.8408, L4500.0100, L3300.8200, L503.0106 #### [facility] [address] [facility] [place], [place], [id number] Calcium [Mass/Vol] 10.2 mg/dL Normal 7.6-11.0 [facility] Comment on above: Performed By: #### L 4500.5000, L101.9900, L503.5510, L3100.1725, L3100.7250, L501.9520, L501.5200, L3100.5600, L3100.7050, L500.4100, L3100.5450, L3100.5800, L3100.5700, L3300.8000, L500.4050, L3100.7325, L3300.0450, L100.0500, L4500.2000, L3100.7300, L3100.8408, L4500.0100, L3300.8200, L503.0106 #### [facility] [address] [place], [address] Chloride [Moles/Vol] 101 mmol/L Normal 98-108 [facility] Comment on above: Performed By: #### L 4500.5000, L101.9900, L503.5510, L3100.1725, L3100.7250, L501.9520, L501.5200, L3100.5600, L3100.7050, L500.4100, L3100.5450, L3100.5800, L3100.5700, L3300.8000, L500.4050, L3100.7325, L3300.0450, L100.0500, L4500.2000, L3100.7300, L3100.8408, L4500.0100, L3300.8200, L503.0106 #### [facility] [address] [place], [address] (189) CO2 [Moles/Vol] 26.7 mmol/L Normal 21.0-32.0 [facility] Comment on above: Performed By: #### L 4500.5000, L101.9900, L503.5510, L3100.1725, L3100.7250, L501.9520, L501.5200, L3100.5600, L3100.7050, L500.4100, L3100.5450, L3100.5800, L3100.5700, L3300.8000, L500.4050, L3100.7325, L3300.0450, L100.0500, L4500.2000, L3100.7300, L3100.8408, L4500.0100, L3300.8200, L503.0106 #### [facility] [address] [facility] [place], [place], [id number] Creatinine [Mass/Vol] 0.84 mg/dL Normal 0.70-1.20 [facility] Comment on above: Performed By: #### L 4500.5000, L101.9900, L503.5510, L3100.1725, L3100.7250, L501.9520, L501.5200, L3100.5600, L3100.7050, L500.4100, L3100.5450, L3100.5800, L3100.5700, L3300.8000, L500.4050, L3100.7325, L3300.0450, L100.0500, L4500.2000, L3100.7300, L3100.8408, L4500.0100, L3300.8200, L503.0106 #### [facility] [address] [facility] [place], [place], [id number] GAP 11 Normal 5-15 [facility] Comment on above: Performed By: #### L 4500.5000, L101.9900, L503.5510, L3100.1725, L3100.7250, L501.9520, L501.5200, L3100.5600, L3100.7050, L500.4100, L3100.5450, L3100.5800, L3100.5700, L3300.8000, L500.4050, L3100.7325, L3300.0450, L100.0500, L4500.2000, L3100.7300, L3100.8408, L4500.0100, L3300.8200, L503.0106 #### [facility] [address] [place], [place], [id number] GFR/1.73 sq M.predicted among non-blacks MDRD (S/P/Bld) [Vol rate/Area] 97 mL/min/{1.73_m2} Normal >60 [facility] Comment on above: Result Comment: mL/m in/1.73m2 CKD-EPI Creatinine Equation (2020) Performed By: #### L 4500.5000, L101.9900, L503.5510, L3100.1725, L3100.7250, L501.9520, L501.5200, L3100.5600, L3100.7050, L500.4100, L3100.5450, L3100.5800, L3100.5700, L3300.8000, L500.4050, L3100.7325, L3300.0450, L100.0500, L4500.2000, L3100.7300, L3100.8408, L4500.0100, L3300.8200, L503.0106 #### [facility] [address] [place], [place], [id number] (023) Globulin (S) [Mass/Vol] 3.1 g/dL Normal 2.2-4.2 [facility] Comment on above: Performed By: #### L 4500.5000, L101.9900, L503.5510, L3100.1725, L3100.7250, L501.9520, L501.5200, L3100.5600, L3100.7050, L500.4100, L3100.5450, L3100.5800, L3100.5700, L3300.8000, L500.4050, L3100.7325, L3300.0450, L100.0500, L4500.2000, L3100.7300, L3100.8408, L4500.0100, L3300.8200, L503.0106 #### [facility] [address] [place], [address] (086) Glucose [Mass/Vol] 182 mg/dL High 70-99 [facility] Comment on above: Performed By: #### L 4500.5000, L101.9900, L503.5510, L3100.1725, L3100.7250, L501.9520, L501.5200, L3100.5600, L3100.7050, L500.4100, L3100.5450, L3100.5800, L3100.5700, L3300.8000, L500.4050, L3100.7325, L3300.0450, L100.0500, L4500.2000, L3100.7300, L3100.8408, L4500.0100, L3300.8200, L503.0106 #### [facility] [address] [facility] [place], [place], [id number] Potassium [Moles/Vol] 5.0 mmol/L Normal 3.3-5.1 [facility] Comment on above: Performed By: #### L 4500.5000, L101.9900, L503.5510, L3100.1725, L3100.7250, L501.9520, L501.5200, L3100.5600, L3100.7050, L500.4100, L3100.5450, L3100.5800, L3100.5700, L3300.8000, L500.4050, L3100.7325, L3300.0450, L100.0500, L4500.2000, L3100.7300, L3100.8408, L4500.0100, L3300.8200, L503.0106 #### [facility] [address] [place], [address] Sodium [Moles/Vol] 139 mmol/L Normal 133-145 [facility] Comment on above: Performed By: #### L 4500.5000, L101.9900, L503.5510, L3100.1725, L3100.7250, L501.9520, L501.5200, L3100.5600, L3100.7050, L500.4100, L3100.5450, L3100.5800, L3100.5700, L3300.8000, L500.4050, L3100.7325, L3300.0450, L100.0500, L4500.2000, L3100.7300, L3100.8408, L4500.0100, L3300.8200, L503.0106 #### [facility] [address] [place], [place], [id number] T PROT 7.7 g/dL Normal 5.9-8.4 [facility] Comment on above: Performed By: #### L 4500.5000, L101.9900, L503.5510, L3100.1725, L3100.7250, L501.9520, L501.5200, L3100.5600, L3100.7050, L500.4100, L3100.5450, L3100.5800, L3100.5700, L3300.8000, L500.4050, L3100.7325, L3300.0450, L100.0500, L4500.2000, L3100.7300, L3100.8408, L4500.0100, L3300.8200, L503.0106 #### [facility] [address] [place], [address] Urea nitrogen [Mass/Vol] 21 mg/dL High 4-19 [facility] Comment on above: Performed By: #### L 4500.5000, L101.9900, L503.5510, L3100.1725, L3100.7250, L501.9520, L501.5200, L3100.5600, L3100.7050, L500.4100, L3100.5450, L3100.5800, L3100.5700, L3300.8000, L500.4050, L3100.7325, L3300.0450, L100.0500, L4500.2000, L3100.7300, L3100.8408, L4500.0100, L3300.8200, L503.0106 #### [facility] [address] [place], [place], [id number] Dilute Rashad's viper venom timeOrdered By: Werner Mccarty on 07-20-2024 dRVVT Coag (PPP) [Time] 39.5 s 0.0-47.0 [facility] Erythrocyte Sed Rateon 07-20 SED RATE 16 mm/hr Normal 0-20 [facility] Comment on above: Performed By: #### L 4500.5000, L101.9900, L503.5510, L3100.1725, L3100.7250, L501.9520, L501.5200, L3100.5600, L3100.7050, L500.4100, L3100.5450, L3100.5800, L3100.5700, L3300.8000, L500.4050, L3100.7325, L3300.0450, L100.0500, L4500.2000, L3100.7300, L3100.8408, L4500.0100, L3300.8200, L503.0106 #### [facility] [address] [place], [place], [id number] Erythrocyte distribution wid th ratioOrdered By: Werner Mccarty on 07-20-2024 Erythrocyte distribution width (RBC) [Ratio] 12.2 % 11.6-14.6 [facility] Erythrocyte distribution wid th standard deviationOrdered By: Werner [facility] on 07-20-2024 Erythrocyte distribution width (RBC) [Ratio] 38.5 fl 35.1-43.9 [facility] Erythrocyte folate measureme nt with hematocritOrdered By: Werner Mccarty on 07-20-2024 Hematocrit (Bld) [Volume fraction] 49.3 % 37.5-51.0 [facility] Erythrocyte sedimentation ra teOrdered By: Werner Mccarty on 07-20-2024 ESR (Bld) [Velocity] 16 mm/h 0-20 [facility] Functional protein C measure mentOrdered By: Wernerheidy Mccarty on 07-20-2024 Protein C actual/normal Chromogenic method (PPP) [Rel catalytic activity/Vol] 135 % 73-180 [facility] Comment on above: Performed at: BN - [facility] [address] [id number] Director: Bandar De Anda MD, Phone: [phone] at: CB - [facility] [address] [id number] Director: Jorge Calderon PhD, Phone: [phone] at: TG - [facility] [id number] [place], [place] [id number] Director: Arjun Flanagan [facility], Phone: [phone] Glomerular filtration rate ( GFR) estimation/1.73 sq m using serum, plasma, or whole bOrdered By: Werner Mccarty on 07-20-2024 GFR/1.73 sq M.predicted among non-blacks MDRD (S/P/Bld) [Vol rate/Area] 97 mL/min/{1.73_m2} >60 [facility] Comment on above: mL/min/1.73m2 CKD-EP I Creatinine Equation (2020) Hematocrit Auto (Bld) [Volum e fraction]Ordered By: Werner Mccarty on 07-20-2024 Hematocrit (Bld) [Volume fraction] 46.5 % 40-54 [facility] Hemoglobin measurementOrdere d By: Werner Mccarty on 07-20-2024 Hemoglobin (Bld) [Mass/Vol] 14.7 g/dL 13.0-16.5 [facility] LDL calc ser/plasOrdered By: Werner Mccarty on 07-20-2024 Cholesterol in LDL [Mass/Vol] 70 mg/dL [facility] Comment on above: Spradblibi=454-640 m g/dL & Higher Lvsu=514 mg/dL or greater Laboratory - Chemistry and C hemistry - challengeOrdered By: Werner Mccarty on 07-20-2024 AST [Catalytic activity/Vol] 18 U/L <38 [facility] Lipid Profileon 07-20-2024 CHOL:HDL 4.04 Normal [facility] Comment on above: Performed By: #### L 4500.5000, L101.9900, L503.5510, L3100.1725, L3100.7250, L501.9520, L501.5200, L3100.5600, L3100.7050, L500.4100, L3100.5450, L3100.5800, L3100.5700, L3300.8000, L500.4050, L3100.7325, L3300.0450, L100.0500, L4500.2000, L3100.7300, L3100.8408, L4500.0100, L3300.8200, L503.0106 #### [facility] [address] [place], [address] Cholesterol [Mass/Vol] 143 mg/dL Normal <=200 [facility] Comment on above: Result Comment: Chol esterol level, Desirable <200 mg/dL Borderline high cholesterol 200-239 mg/dL High cholesterol >=240 mg/dL Recommendations of the NCEP Adult Treatment Panel for the following risk-cutoff thresholds for the [place] population. Performed By: #### L 4500.5000, L101.9900, L503.5510, L3100.1725, L3100.7250, L501.9520, L501.5200, L3100.5600, L3100.7050, L500.4100, L3100.5450, L3100.5800, L3100.5700, L3300.8000, L500.4050, L3100.7325, L3300.0450, L100.0500, L4500.2000, L3100.7300, L3100.8408, L4500.0100, L3300.8200, L503.0106 #### [facility] [address] [place], [address] Cholesterol in HDL [Mass/Vol] 35 mg/dL Low [facility] Comment on above: Result Comment: Megan onal Cholesterol Education Program (NCEP) guidelines: <40 mg/dL: Low HDL-cholesterol (major risk factor for CHD) >= 60 mg/dL: High HDL-cholesterol (negative risk factor for CHD) HDL-cholesterol is affected by a number of factors, e.g. smoking, exercise, hormones, sex and age. Performed By: #### L 4500.5000, L101.9900, L503.5510, L3100.1725, L3100.7250, L501.9520, L501.5200, L3100.5600, L3100.7050, L500.4100, L3100.5450, L3100.5800, L3100.5700, L3300.8000, L500.4050, L3100.7325, L3300.0450, L100.0500, L4500.2000, L3100.7300, L3100.8408, L4500.0100, L3300.8200, L503.0106 #### [facility] [address] [place], [address] Cholesterol in LDL [Mass/Vol] 70 mg/dL Normal [facility] Comment on above: Result Comment: Bord szyhge=827-164 mg/dL Higher Tsfe=172 mg/dL or greater Performed By: #### L 4500.5000, L101.9900, L503.5510, L3100.1725, L3100.7250, L501.9520, L501.5200, L3100.5600, L3100.7050, L500.4100, L3100.5450, L3100.5800, L3100.5700, L3300.8000, L500.4050, L3100.7325, L3300.0450, L100.0500, L4500.2000, L3100.7300, L3100.8408, L4500.0100, L3300.8200, L503.0106 #### [facility] [address] [place], [address] Cholesterol in VLDL [Mass/Vol] 37 mg/dL Normal 5-40 [facility] Comment on above: Performed By: #### L 4500.5000, L101.9900, L503.5510, L3100.1725, L3100.7250, L501.9520, L501.5200, L3100.5600, L3100.7050, L500.4100, L3100.5450, L3100.5800, L3100.5700, L3300.8000, L500.4050, L3100.7325, L3300.0450, L100.0500, L4500.2000, L3100.7300, L3100.8408, L4500.0100, L3300.8200, L503.0106 #### [facility] [address] [place], [place], [id number] Triglyceride [Mass/Vol] 187 mg/dL Normal [facility] Comment on above: Result Comment: The drugs N-Acetylcysteine and Metamizole may falsely depress this assay. Normal range: <150 mg/dL Borderline High: 150-199 mg/dL High: 200-499 mg/dL Very High: >500 mg/dL Performed By: #### L 4500.5000, L101.9900, L503.5510, L3100.1725, L3100.7250, L501.9520, L501.5200, L3100.5600, L3100.7050, L500.4100, L3100.5450, L3100.5800, L3100.5700, L3300.8000, L500.4050, L3100.7325, L3300.0450, L100.0500, L4500.2000, L3100.7300, L3100.8408, L4500.0100, L3300.8200, L503.0106 #### [facility] [address] [place], [address] MCV (mean corpuscular volume ) determinationOrdered By: Werner Mccarty on 07-20-2024 MCV (RBC) [Entitic vol] 87.1 fL 80-94 [facility] Magnesiumon 07-20-2024 Magnesium [Mass/Vol] 2.0 mg/dL Normal 1.5-2.2 [facility] Comment on above: Performed By: #### L 4500.5000, L101.9900, L503.5510, L3100.1725, L3100.7250, L501.9520, L501.5200, L3100.5600, L3100.7050, L500.4100, L3100.5450, L3100.5800, L3100.5700, L3300.8000, L500.4050, L3100.7325, L3300.0450, L100.0500, L4500.2000, L3100.7300, L3100.8408, L4500.0100, L3300.8200, L503.0106 #### [facility] [place], [address] Magnesium measurement (mass/ volume)Ordered By: Werner Mccarty on 07-20-2024 Magnesium (Unsp spec) [Mass/Vol] 2.0 mg/dL 1.5-2.2 [facility] Mean corpuscular hemoglobin (MCH) determinationOrdered By: Werner Mccarty on 07-20-2024 MCH (RBC) [Entitic mass] 27.5 pg 27.0-32.0 [facility] Mean corpuscular hemoglobin concentration (MCHC) determinationOrdered By: Werner Mccarty on 07-20-2024 MCHC (RBC) [Mass/Vol] 31.6 g/dL Low 32-36 [facility] Mean platelet volume determi nationOrdered By: Werner Mccarty on 07-20-2024 Platelet mean volume (Bld) [Entitic vol] 13.8 fL High 6.2-12.0 [facility] Platelet countOrdered By: Ra zain Mccarty on 07-20-2024 Platelets (Bld) [#/Vol] 158 10*3/uL 150-450 [facility] Platelet poor plasma antithr ombin actual/normal ratio by chromogenic method (relativeOrdered By: Werner Mccarty on 07-20-2024 Antithrombin actual/normal Chromogenic method (PPP) [Rel catalytic activity/Vol] 151 % High 75-135 [facility] Comment on above: An elevated antithro mbin activity is of no known clinicalsignificance. Direct Xa inhibitor anticoagulants such asrivaroxaban, apixaban and edoxaban will lead to spuriouslyelevated antithrombin activity levels possibly masking adeficiency. Platelet poor plasma antithr ombin antigen detection by immunoassayOrdered By: Werner Mccarty on 07-20-2024 Antithrombin Ag IA Ql (PPP) 124 % 72-124 [facility] Platelet poor plasma protein S actual/normal ratio (relative time)Ordered By: Werner Mccarty on 07-20-2024 Protein S actual/normal Coag (PPP) [Relative time] 97 % 63-140 [facility] Comment on above: Protein S activity m ay be falsely increased (masking anabnormal, low result) in patients receiving direct Xainhibitor (e.g., rivaroxaban, apixaban, edoxaban) or adirect thrombin inhibitor (e.g., dabigatran) anticoagulanttreatment due to assay interference by these drugs. Potassium measurement (mass/ volume)Ordered By: Werner Mccarty on 07-20-2024 Potassium (Unsp spec) [Mass/Vol] 5.0 mmol/L 3.3-5.1 [facility] Protein C antigen assayOrder ed By: Werner Mccarty on 07-20-2024 Protein C Ag actual/normal IA (PPP) [Relative mass conc] 126 % 60-150 [facility] Protein S measurement in sami telet poor plasma by coagulation assay (units/volume)Ordered By: Werner Mccarty on 07-20-2024 Protein S Coag Qn (PPP) 95 % 60-150 [facility] Comment on above: This test was develo ped and its performance characteristicsdetermined by [facility]. It has not been cleared orapproved by the Food and Drug Administration. Protein S, freeOrdered By: Aziza Mccarty on 07-20-2024 Protein S Free Ag IA Qn (PPP) 120 % 61-136 [facility] RBC Auto (Bld) [#/Vol]Ordere d By: Werner Mccarty on 07-20-2024 RBC (Bld) [#/Vol] 5.34 10*6/uL 4.6-6.2 [facility] Screening total cholesterol/ high density lipoprotein (HDL) cholesterol ratioOrdered By: Werner Mccarty on 07-20-2024 Cholesterol.total/Heidy sterol in HDL [Mass ratio] 4.04 {ratio} [facility] Serum DNA double strand anti body assay (units/volume)Ordered By: Werner Mccarty on 07-20-2024 DNA double strand Ab Qn (S) [facility] Comment on above: Test not performed Serum Scl-70 antibody assay (units/volume)Ordered By: Werner Mccarty on 07-20-2024 SCL-70 extractable nuclear Ab Qn (S) [facility] Comment on above: Test not performed Serum cardiolipin IgG antibo dy assay by immunoassay (units/volume)Ordered By: Werner Mccarty on 07-20-2024 Cardiolipin IgG IA Qn (S) < 9 GPL U/mL 0-14 [facility] Comment on above: Negative: <15 Indete rminate: 15 - 20 Low-Med Positive: >20 - 80 High Positive: >80 Serum creatinine measurement (mass/volume)Ordered By: Werner Mccarty on 07-20-2024 Creatinine [Mass/Vol] 0.84 mg/dL 0.70-1.20 [facility] Serum globulin measurementOr dered By: Werner Mccarty on 07-20-2024 Globulin (S) [Mass/Vol] 3.1 g/dL 2.2-4.2 [facility] Serum glucose measurement (m ass/volume)Ordered By: Werner Mccarty on 07-20-2024 Glucose [Mass/Vol] 182 mg/dL High 70-99 [facility] Serum or plasma alanine montoya otransferase (ALT) measurementOrdered By: Werner Mccarty on 07-20-2024 ALT [Catalytic activity/Vol] 27 U/L <47 [facility] Serum or plasma albumin ruslan urement (mass/volume)Ordered By: Werner Mccarty on 07-20-2024 Albumin [Mass/Vol] 4.6 g/dL 3.4-4.8 [facility] Serum or plasma albumin/glob ulin mass ratioOrdered By: Werner Mccarty on 07-20-2024 Albumin/Globulin [Mass ratio] 1.5 {ratio} 0.9-2.4 [facility] Serum or plasma alkaline jignesh sphatase measurementOrdered By: Werner Mccarty on 07-20-2024 ALP [Catalytic activity/Vol] 178 U/L High 40-129 [facility] Serum or plasma calcium ruslan urement (mass/volume)Ordered By: Werner Mccarty on 07-20-2024 Calcium [Mass/Vol] 10.2 mg/dL 7.6-11.0 [facility] Serum or plasma cardiolipin IgA antibody assay (units/volume)Ordered By: Werner Mccarty on 07-20-2024 Cardiolipin IgA Qn < 9 APL U/mL 0-11 [facility] Comment on above: Negative: <12 Indete rminate: 12 - 20 Low-Med Positive: >20 - 80 High Positive: >80 Serum or plasma cholesterol in HDL measurement (mass/volume)Ordered By: Werner Mccarty on 07-20-2024 Cholesterol in HDL [Mass/Vol] 35 mg/dL Low >40 [facility] Comment on above: National Cholesterol Education Program (NCEP) guidelines:<40 mg/dL: Low HDL-cholesterol (major risk factor for CHD)>= 60 mg/dL: High HDL-cholesterol (negative risk factor for CHD)HDL-cholesterol is affected by a number of factors, e.g. smoking, exercise, hormones, sex and age. Serum or plasma cholesterol measurement (mass/volume)Ordered By: Werner Mccarty on 07-20-2024 Cholesterol [Mass/Vol] 143 mg/dL <201 [facility] Comment on above: Cholesterol level, D esirable <200 mg/dLBorderline high cholesterol 200-239 mg/dLHigh cholesterol >=240 mg/dLRecommendations of the NCEP Adult Treatment Panel for the following risk-cutoff thresholds for the [place] population. Serum or plasma complement C 4 measurement (mass/volume)Ordered By: Werner Mccarty on 07-20-2024 Complement C4 [Mass/Vol] 29 mg/dL 12-38 [facility] Serum or plasma thiamine allan surement (mass/volume)Ordered By: Werner Mccarty on 07-20-2024 Thiamine [Mass/Vol] 156.9 nmol/L 66.5-200.0 [facility] Serum or plasma urea nitroge n measurement (mass/volume)Ordered By: Werner Mccarty on 07-20-2024 Urea nitrogen [Mass/Vol] 21 mg/dL High 4-19 [facility] Sodium levelOrdered By: Gloria Mccarty on 05-19-2025 Sodium [Moles/Vol] 139 mmol/L 133-145 [facility] TSH DL <= 0.005 mIU/L QnOrde red By: Werner Mccarty on 07-20-2024 TSH Qn 1.510 uIU/mL 0.300-4.20 0 [facility] Thrombin timeOrdered By: Vargas Mccarty on 07-20-2024 Thrombin time Coag (PPP) [Time] 22.6 sec 0.0-23.0 [facility] Thyroid Stim Hormone (TSH)on 07-20-2024 TSH 1.510 uIU/mL Normal 0.300-4.20 0 [facility] Comment on above: Performed By: #### L 4500.5000, L101.9900, L503.5510, L3100.1725, L3100.7250, L501.9520, L501.5200, L3100.5600, L3100.7050, L500.4100, L3100.5450, L3100.5800, L3100.5700, L3300.8000, L500.4050, L3100.7325, L3300.0450, L100.0500, L4500.2000, L3100.7300, L3100.8408, L4500.0100, L3300.8200, L503.0106 ####[facility] [id number], [address] Total proteinOrdered By: Vargas Mccarty on 07-20-2024 Protein [Mass/Vol] 7.7 g/dL 5.9-8.4 [facility] Triglycerides measurementOrd ered By: Werner Mccarty on 07-20-2024 Triglyceride [Mass/Vol] 187 mg/dL <199 [facility] Comment on above: The drugs N-Acetylcy steine and Metamizole may falsely depress this assay. Normal range: <150 mg/dLBorderline High: 150-199 mg/dLHigh: 200-499 mg/dLVery High: >500 mg/dL Venous blood ammonia measure mentOrdered By: Werner Mccarty on 07-20-2024 Ammonia (P) [Moles/Vol] 55.6 umol/L 16-60 [facility] Vitamin B12on 07-20-2024 Cobalamin (Vitamin B12) [Mass/Vol] 2229 pg/mL High 180-914 [facility] Comment on above: Performed By: #### L 4500.5000, L101.9900, L503.5510, L3100.1725, L3100.7250, L501.9520, L501.5200, L3100.5600, L3100.7050, L500.4100, L3100.5450, L3100.5800, L3100.5700, L3300.8000, L500.4050, L3100.7325, L3300.0450, L100.0500, L4500.2000, L3100.7300, L3100.8408, L4500.0100, L3300.8200, L503.0106 ####[facility] [address] [place], [address] Vitamin B12 ser/plasOrdered By: Werner Mccarty on 07-20-2024 Cobalamin (Vitamin B12) [Mass/Vol] 2229 pg/mL High 180-914 [facility] White blood cell (WBC) count Ordered By: Werner Mccarty on 07-20-2024 WBC (Bld) [#/Vol] 5.2 10*3/uL 4.4-11.0 [facility] Neurology Visit Reporton Neurology Visit Report [facility] [address], [address] [place], [place] [id number] OFFICE VISIT Date of Service: 07/09/24 MR#: [id number] Acct: [id number] Name: DREA COPELAND Rep #: [id number] : 1960 Provider: Dr. Werner quick MD Age/Sex: 64/M Location: [facility] Status: Signed HPI HPI Chief Complaint: Establish Care Details: History: The patient is a 64-year-old right-handed male with a past medical history of hypertension, diabetes mellitus, hyperlipidemia, anemia, vitamin D deficiency, gastroesophageal reflux disease, prior alcohol abuse, and stroke who presents for evaluation of his stroke. He resides in a care home facility and is accompanied by caregiver. The patient he is able to give only a few details regarding his history. Records indicate that his stroke occurred in December 2022 and manifested with a right hemiparesis. It appears that he also had dysarthria and dysphagia. Review of a head CT from 2023 reveals old left thalamic and left posterior limb internal capsule infarcts, advanced bilateral periventricular and subcortical white matter chronic small vessel ischemic disease, and moderate diffuse cerebral atrophy. Further details regarding his stroke are presently not available. He is not on aspirin, clopidogrel or an anticoagulant. Records indicate a history of duodenal ulcer with hemorrhage. He now resides in a care home facility. He has a feeding tube due to inadequate oral caloric intake. He is able to feed himself to a limited degree. He is nonambulatory and requires total care in other activities of daily living. He is currently not receiving physical therapy. He denies having headaches, vision change, or numbness. His caregiver reports that the patient is often confused and has memory difficulty. He has a tendency to forget recent conversations. The patient states that he has not had other strokes other than the stroke that occurred in December 2022. Past Medical History: As above. There is no history of heart disease, lung disease, seizure, thyroid disease, cancer, or renal disease. Social History: He has a history of smoking tobacco; he quit smoking tobacco when his stroke occurred several years ago. He has a prior history of alcohol abuse. He quit drinking alcohol when his stroke occurred in years past. There is no history of illicit drug use. He graduated from high school. Family History: There is no family history of cerebral aneurysm, seizure, or stroke. Review of Systems: As above. The patient has not had any recent fever, rash, weight change, chest pain, shortness of breath, or gastrointestinal problems. He is incontinent of urine. He denies having sleep disturbance. He denies having depression or anxiety. Physical Exam: General: Well-developed, well-nourished male in no acute distress. Neuro: The patient is awake; he is bradyphrenic; he exhibits a paucity of speech; his speech is somewhat slow; Mini-Mental status exam score is 13/30; he has difficulty following simple commands Cranial nerves: PERRL, 2-3mm bilaterally; EOMI; visual montgomery are full; tongue is midline Cerebellar system: No nystagmus or dysmetria Deep tendon reflexes: +2 at the right brachioradialis and biceps bilaterally, absent at the left brachioradialis, +1 at the right triceps, absent at the left triceps, absent at the right knee, +1 at the left knee and ankles; plantar responses are downward on the left and upward on the right Motor: Strength 5/5 in the left abductor pollicis brevis, left first dorsal interosseous, left biceps, left triceps, 0/5 in the right hand and right biceps, 1/5 at the right quadriceps, 4+/5 at the left quadriceps, 0/5 in the right foot dorsiflexors and 3/5 in the left foot dorsiflexors; hypertonia and contractures are noted in the right upper extremity and right lower extremity Sensory: Decreased vibration is noted in the right foot; there are no deficits to vibration in the left foot; there are no deficits to soft touch in the feet Gait: The patient is nonambulatory HEENT: Normocephalic; atraumatic; tympanic membranes are clear Neck: No bruits Heart: Regular rhythm and rate Extremities: No cyanosis or edema Supplemental Info Head CT (05/05/2023): FINDINGS: BRAIN AND EXTRA-AXIAL SPACES: Chronic bilateral basal ganglia and left thalamic lacunar infarcts noted. No hemorrhage or mass effect. No acute ischemia. Areas of diminished white matter density noted within both cerebral hemispheres suggestive of chronic microvascular change. Prominence of the cortical sulci and ventricles related to volume loss change. BONES/JOINTS: Normal calvarium. SINUSES: Mucoperiosteal thickening of the right maxillary sinus noted indicative of chronic sinusitis. MASTOID AIR CELLS: Normal. Clear. IMPRESSION: No acute intracranial abnormality. Chronic microvascular changes. These images were reviewed on 5 (more content not included)... Normal [facility] Bedside Glucoseon 11-20-2023 FINGERSTICK GLU 133 mg/dL High 74-106 [facility] Comment on above: Result Comment: GADIEL SPANN OF PATIENT CARE PER NURSING PROTOCOL Performed By: #### L 501.080 #### [facility] [address] [place], [address] EGD Reporton 11-20-2023 EGD Report [facility] Medical Records Department [address] [place] [address] EGD Report MR#: [id number] Acct: [id number] Name: DREA COPELAND Rep #: [id number] : 1960 63 From: Ryan Larios DO PCP: Dr. Juan C Barnes MD Status:[facility] Patient Name: Drea Copeland Procedure Date: 11/20/2023 9:19 AM Date of : 1960 Age: 63 Procedure: Upper GI endoscopy Indications: Peptic ulcer Providers: Ryan Larios DO Medicines: Monitored Anesthesia Care Patient Profile: This is a 63 year old male. Refer to note in patient chart for documentation of history and physical. Patient has symptoms. Complications: No immediate complications. Procedure: Pre-Anesthesia Assessment: - Prior to the procedure, a History and Physical was performed, and patient medications and allergies were reviewed. The patient is competent. The risks and benefits of the procedure and the sedation options and risks were discussed with the patient. All questions were answered and informed consent was obtained. Patient identification and proposed procedure were verified by the physician in the pre-procedure area. Mental Status Examination: alert and oriented. Airway Examination: normal oropharyngeal airway and neck mobility. Respiratory Examination: clear to auscultation. CV Examination: normal. Prophylactic Antibiotics: The patient does not require prophylactic antibiotics. Prior Anticoagulants: The patient has taken no anticoagulant or antiplatelet agents. ASA Grade Assessment: II - A patient with mild systemic disease. After reviewing the risks and benefits, the patient was deemed in satisfactory condition to undergo the procedure. The anesthesia plan was to use monitored anesthesia care (MAC). Immediately prior to administration of medications, the patient was re-assessed for adequacy to receive sedatives. The heart rate, respiratory rate, oxygen saturations, blood pressure, adequacy of pulmonary ventilation, and response to care were monitored throughout the procedure. The physical status of the patient was re-assessed after the procedure. After obtaining informed consent, the endoscope was passed under direct vision. Throughout the procedure, the patient's blood pressure, pulse, and oxygen saturations were monitored continuously. The gastroscope was introduced through the mouth, and advanced to the second part of duodenum. The upper GI endoscopy was accomplished without difficulty. The patient tolerated the procedure well. Scope In: 10:18:36 AM Scope Out: 10:23:12 AM Total Procedure Duration Time 0 hours 4 minutes 36 seconds Findings: The examined esophagus was normal. There was evidence of an intact gastrostomy with a patent G-tube present in the gastric body. This was characterized by healthy appearing mucosa. Patchy mildly erythematous mucosa without active bleeding and with no stigmata of bleeding was found in the duodenal bulb. Biopsies were taken with a cold forceps for histology. Verification of patient identification for the specimen was done. Estimated blood loss was minimal. Impression: - Normal esophagus. - Intact gastrostomy with a patent G-tube present characterized by healthy appearing mucosa. - Erythematous duodenopathy. Biopsied. Recommendation: - Discharge patient to home. - Resume previous diet. - Continue present medications. - Await pathology results. Procedure Code(s): --- Professional --- 97230, Esophagogastroduodenoscopy, flexible, transoral; with biopsy, single or multiple CPT copyright 2021 [employer]. All rights reserved. The codes documented in this report are preliminary and upon cable stretcher and tester review may be revised to meet current compliance requirements. Ryan Larios DO 11/20/2023 10:27:40 AM This report has been signed electronically. Number of Addenda: 0 Note Initiated On: 11/20/2023 9:19 AM 11/20/23 1027 Date Ryan Larios DO Cosigner Signature: Date (if indicated) CC: Dr. Juan C Barnes MD; Ryan Larios DO Date Dictated: 11/20/23918 Date Transcribed: Curriculum Assistant: ALIRIO Signed [facility] MR/POSTOP.Anila 11-20-2023 MR/POSTOP.[facility] Medical Records Department [address] [place] [address] Anesthesia Postop Eval I 11/20/23 1035 MR#: [id number] Acct: [id number] Name: DREA COPELAND Rep #: [id number] : 1960 63 From: Tylor Schmidt PCP: Dr. Juan C Barnes MD Status:[facility] Y Race: AA Location: [place] [address] Anesthesia: Postop Eval I Current Vital Signs Temperature: 97.1 F Pulse Rate: 97 Blood Pressure: 98/73 Respiratory Rate: 18 Pulse Ox: 98 Oxygen Delivery Method: Room Air Assessment Airway patent: Yes Spontaneous unlabored respirations: Yes Mental status: Asleep nausea: No Vomiting: No Anesthesia Complication: No Fluid Hydration Crystalloid volume administer (ml): 400 Total IV fluid infused: 400 Progress Note Anesthesia document: Postop Eval 1 completed: Yes 11/20/23 1035 Date Tylor Lara Signature: Date CC: Signed [facility] MR/[id number] 11-20-2023 MR/POSTOPAN2 [facility] Medical Records Department [address] [place] [address] Anesthesia Postop Eval II 11/20/23 1308 MR#: [id number] Acct: [id number] Name: DREA COPELAND Rep #: [id number] : 1960 63 From: Reyes Menard MD PCP: Dr. Juan C Barnes MD Status:[facility] Y Race: AA Location: [place] Anesthesia Postop Eval I Sum Postop Eval Completion status Anesthesia document: Postop Eval 1 completed: Yes Anesthesia Postop Eval I Summary Anesthesia Postop Eval I Summary: Anesthesia Postop Eval I: Assessment Summary Airway patent Yes 11/20/23 10:35 [email or web address] Spontaneous unlabored Yes 11/20/23 10:35 [email or web address] respirations Mental status Asleep 11/20/23 10:35 [email or web address] nausea No 11/20/23 10:35 [email or web address] Vomiting No 11/20/23 10:35 [email or web address] Anesthesia Postop Eval I: Fluid Summary Crystalloid volume administer 400 11/20/23 10:35 [email or web address] (ml) Colloids volume administered ( ml) Blood Product volume administered (ml) Total IV fluid infused 400 11/20/23 10:35 [email or web address] Anesthesia Postop Eval I: Summary Notes Anesthesia Complication No 11/20/23 10:35 [email or web address] Anesthesia Complication Comment: Post-operative progress note Anesthesia: Postop Eval II Evaluation Mental status: Awake Pain Level: 0 nausea: No Vomiting: No 11/20/23 1308 Date Reyes Lara Signature: Date CC: Signed [facility] Surgery Specimen Level Bhavin 11-20-2023 Surgery Specimen Level IV Patient Age/Sex Location Account Attending Physician DREA COPELAND/M YAMILE [id number] Ryan Larios DO Specimen: [id number] Received: 11/20/23 Status: RIYA Aldridge Num: [id number] Spec Type: EGD BIOPSY Subm Dr: Ryan Larios DO HEADER OPERATION: EGD with biopsy PRE-OP DIAGNOSIS: Duodenal ulcer TISSUE SUBMITTED: Duodenum biopsy MICROSCOPIC DIAGNOSIS Duodenum, biopsy: Mild non-specific chronic inflammation. AM. 11/21/2023 MICROSCOPIC DESCRIPTION Slides are reviewed. GROSS DESCRIPTION Received in fixative is one container labeled with the patient's name and designated Duodenum biopsy. The specimen consists of two irregular fragments of light parker soft tissue that in aggregate measure 0.6 x 0.5 x 0.1 cm. The specimen is totally submitted in one cassette. TONNY. 11/20/2023 TC:3 CPT:61538 Patient Age/Sex Location Account Attending Physician DREA COPELAND 63/M EN [id number] Ryan DO Harriet Signed (signature on file) Dr. Anil Epps, 11/21/23 1418 [facility] Comment on above: Performed By: #### P SUIV ####[facility] [id number] [place], [place], [id number] Gastroenterology Visit Repor ton 10-21-2023 Gastroenterology Visit Report [facility] [address] [place] [address] OFFICE VISIT Date of Service: 10/21/23 MR#: [id number] Acct: [id number] Name: DREA COPELAND Rep #: [id number] : 1960 Provider: ESTHELA Ty Age/Sex: 63/M Location: [facility] [place] Status: Signed Intake Vital Signs 08/16/23 15:06 Height 5 ft 9 in Intake Visit Reasons: Hosp f/u Allergies No Known Allergies Allergy (Verified 08/12/23 08:26) Medications ???Medication ???Instructions ???Recorded ???Confirmed ???Type ammonium lactate 12 % topical cream 1 applic topical BID PRN dry skin 05/05/23 10/21/23 History atorvastatin 80 mg tablet 80 mg feeding tube QHS CHOLESTEROL 05/05/23 10/21/23 History cholecalciferol (vitamin D3) 50 50 mcg feeding tube DAILY VIT D 05/05/23 10/21/23 History mcg (2,000 unit) capsule DEFICIENCY multivitamin with iron-mineral 1 tab feeding tube DAILY VITAMIN 05/05/23 10/21/23 History thiamine HCl (vitamin B1) 100 mg 100 mg feeding tube DAILY VITAMIN 05/05/23 10/21/23 History tablet B DIFICIENCY ondansetron 4 mg disintegrating 4 mg PO Q6H PRN nausea and 05/15/23 10/21/23 Rx tablet vomiting #10 tabs acetaminophen 500 mg capsule 500 mg feeding tube Q6H PRN pain 06/19/23 10/21/23 History bisacodyl 10 mg rectal suppository 10 mg NC DAILY PRN constipation 06/19/23 10/21/23 History esomeprazole magnesium 40 mg 40 mg PO BID 06/19/23 10/21/23 History granules delayed release for susp (Nexium Packet) insulin lispro 100 unit/mL 1 sliding scale dose subcut 4X/DAY 06/19/23 10/21/23 History subcutaneous pen carvedilol 6.25 mg tablet 6.25 mg feeding tube BID #1 TAB 08/17/23 10/21/23 Rx menthol 0.44 %-zinc oxide 20.6 % 1 applic topical BID #0 grams 08/17/23 10/21/23 Rx topical ointment (Calmoseptine) [facility] Medical History (Updated 10/21/23 @ 12:30 by ESTHELA Ty) 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) Generalized muscle weakness Alcohol use Dysphagia GERD (gastroesophageal reflux disease) High cholesterol Hypertension Anemia Stroke/cerebrovascular accident Nicotine dependence, other tobacco product, uncomplicated Alcohol abuse, uncomplicated Other hereditary and idiopathic neuropathies Vitamin D deficiency, unspecified 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 Mau Contreras MD) Other Hypertension Social History Smoking Status: Former smoker HPI HPI Details: DREA COPELAND, is a 63 M who presents to the office today for HFU. *BGI established via [facility] hospitalization 3.05.25-05.10.23. Presented with SOB per pneumonia. GI consulted for emesis, aspiration pneumonia and dysphagia. EGD 05.07.2324 Grade D erosive esophagitis with bleeding. Increased PPI to BID. [facility] ER 05.15.23 presented with nausea and vomiting. OV 06.07.23- Pt here with transporter with the Avenue. States he is not having any nausea or vomiting. Unsure how long he has PEG or why it was placed. Pt states he does do some oral intake without difficulty. EGD 06.24.23 Normal esophagus. Z-line irregular, 39 cm from the incisors. Biopsied. Intact gastrostomy with a patent G-tube present characterized by healthy appearing mucosa. No gross lesions in the first portion of the duodenum. [facility] ED 08.10.23 - 08.18.23 GI bleed - blood in peg tube and vomiting abd/pelvis CT .10.25 Distended stomach containing an air-fluid level with distended proximal half of the duodenum. There is a transition point in the distal duodenum as it passes between the aorta and the SMA, there may be a nutcracker effect present. PEG tube noted in the body of the stomach with no CT evidence of complication. Simple left renal cyst no specific follow-up needed. Dependent bladder calcifications. Degenerative bony changes EGD 08.12.23 Normal esophagus. Intact gastrostomy with a patent G-tube present characterized by healthy appearing mucosa. Non-bleeding duodenal ulcer with no stigmata of bleeding. Biopsied. Oozing duodenal ulcer with pigmented material. Treated with a heater probe. Clip was placed. 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 OV 10.21.23 Patient has been doing well. He denies abdominal pain, blood in his PEG and n/v. He continues to take Nexium 40 mg BID. He has no concerns today. ROS Const (more content not included)... [facility] Thin prep Papanicolaou smear with manual screeningOrdered By: Ryan Larios on 06-24-2023 Thin prep Papanicolaou smear with manual screening 128 mg/dL 74-106 [facility] Comment on above: MANAGEMENT OF PATIEN T CARE PER NURSING PROTOCOL Basic metabolic 2000 panelon 05-28-2023 Anion gap [Moles/Vol] 5 mmol/L Normal 5-16 [facility] Comment on above: Order Comment: Speci men Type: BLOOD SPECIMEN Ordering Facility: [facility] Address: [address] [place] [address] Performed By: #### 2 4321-2, 5643-2, 6744-6, 6218-7 #### [facility] CLIA [id number] [address] [place] [address] [place] Calcium [Mass/Vol] 9.3 mg/dL Normal 8.5-10.5 [facility] Comment on above: Order Comment: Speci men Type: BLOOD SPECIMEN Ordering Facility: [facility] Address: [address] [place] [address] Performed By: #### 2 4321-2, 5643-2, 8824-6, 6598-7 #### [facility] CLIA [id number] [address] [place] [address] [place] Chloride [Moles/Vol] 104 mmol/L Normal 98-107 [facility] Comment on above: Order Comment: Speci men Type: BLOOD SPECIMEN Ordering Facility: [facility] Address: [address] [place] [address] Performed By: #### 2 4321-2, 5643-2, 0874-6, 7318-7 #### [facility] CLIA [id number] [address] [place], [place] [address] [place] CO2 [Moles/Vol] 27 mmol/L Normal 21-32 [facility] Comment on above: Order Comment: Speci men Type: BLOOD SPECIMEN Ordering Facility: [facility] Address: [address] [place] [id number] Performed By: #### 2 4321-2, 5643-2, 4024-6, 3298-7 #### [facility] CLIA [id number] [address] [place], [place] [address] [place] Creatinine [Mass/Vol] 0.71 mg/dL Normal 0.50-1.40 [facility] Comment on above: Order Comment: Speci sona Type: BLOOD SPECIMEN Ordering Facility: [facility] Address: [address] [place] [address] Result Comment: Bianka ents receiving either N-Acetylcysteine (NAC) or Metamizole prior to venipuncture, may have falsely depressed results. Performed By: #### 2 4321-2, 5643-2, 4024-6, 3298-7 #### [facility] CLIA [id number] [address] [place] [address] Creatinine and Glomerular filtration rate.predicted panel (S/P/Bld) 103 mL/min/1.73m??? Normal >=60 [facility] Comment on above: Order Comment: Speci men Type: BLOOD SPECIMEN Ordering Facility: [facility] Address: [address] [place] [address] Result Comment: Rocio mated Glomerular Filtration Rate (eGFR) is calculated using the 2020 CKD-EPI creatinine equation. This equation utilizes serum creatinine, sex, and age as parameters. The creatinine assay has traceable calibration to isotope dilution-mass spectrometry. Refer to KDIGO guidelines for clinical interpretation. In patients with unstable renal function, e.g. those with acute kidney injury, the eGFR may not accurately reflect actual GFR. Performed By: #### 2 4321-2, 5643-2, 4024-6, 3298-7 #### [facility] CLIA [id number] [address] [place], [place] [address] [place] Glucose [Mass/Vol] 166 mg/dL High 70-100 [facility] Comment on above: Order Comment: Felixi sona Type: BLOOD SPECIMEN Ordering Facility: [facility] Address: [address] [place] [address] Result Comment: The [place] [employer] (ADA) provides guidance for cutoff values for fasting glucose and random glucose. The ADA defines fasting as no caloric intake for at least 8 hours. Fasting plasma glucose results between 100 to 125 mg/dL indicate increased risk for diabetes (prediabetes). Fasting plasma glucose results greater than or equal to 126 mg/dL meet the criteria for diagnosis of diabetes. In the absence of unequivocal hyperglycemia, results should be confirmed by repeat testing. In a patient with classic symptoms of hyperglycemia or hyperglycemic crisis, random plasma glucose results greater than or equal to 200 mg/dL meet the criteria for diagnosis of diabetes. Reference: Standards of Medical Care in Diabetes 2016, [place] [employer]. Diabetes Care. 2016.39(Suppl 1). Results may be falsely elevated after the administration of Sulfapyridine. Results may be falsely depressed after the administration of Sulfasalazine. Performed By: #### 2 4321-2, 5643-2, 4024-6, 3298-7 #### [facility] CLIA [id number] [address] [place] [address] [place] Potassium [Moles/Vol] 4.5 mmol/L Normal 3.5-5.1 [facility] Comment on above: Order Comment: Speci men Type: BLOOD SPECIMEN Ordering Facility: [facility] Address: [address] [place] [address] Performed By: #### 2 4321-2, 5643-2, 0054-6, 1138-7 #### [facility] CLIA [id number] [address] [place] [address] [place] Sodium [Moles/Vol] 136 mmol/L Normal 136-145 [facility] Comment on above: Order Comment: Speci men Type: BLOOD SPECIMEN Ordering Facility: [facility] Address: [address] [place] [address] Performed By: #### 2 4321-2, 5643-2, 1654-6, 1588-7 #### [facility] CLIA [id number] [address] [place] [address] [place] Urea nitrogen [Mass/Vol] 17 mg/dL Normal 7-26 [facility] Comment on above: Order Comment: Speci men Type: BLOOD SPECIMEN Ordering Facility: [facility] Address: [place] [address] Performed By: #### 2 4321-2, 5643-2, 4024-6, 3298-7 #### [facility] CLIA [id number] [facility] [place] [address] [place] Basophil percentageOrdered B y: Juan C Barnes on 05-21-2023 Chloride [Moles/Vol] 113 mmol/L 98-107 [facility] Glucose [Mass/Vol] 214 mg/dL 74-106 [facility] Comment on above: Glucose result great er than or equal to 200 mg/dLsuggests DIABETES MELLITUS per A.D.A. criteria. Potassium [Moles/Vol] 4.1 mmol/L 3.5-5.1 [facility] Sodium [Moles/Vol] 153 mmol/L 136-145 [facility] Laboratory - Chemistry and C hemistry - challengeOrdered By: Juan C Barnes on 05-21-2023 CO2 [Moles/Vol] 35.0 mmol/L 21.0-32.0 [facility] Urea nitrogen/Creatinine [Mass ratio] 45.1 mg/mg 10-20 [facility] No Panel InformationOrdered By: Juan C Barnes on 05-21-2023 Estimated GFR (MDRD) Amer 65 mL/min >60 [facility] Comment on above: GFR Calc Estimated GFR (MDRD) Non-Af Amer 54 mL/min >60 [facility] Comment on above: Non- GFR Calc Serum or plasma calcium ruslan urement (mass/volume)Ordered By: Juan C Barnes on 05-21-2023 Calcium [Mass/Vol] 9.8 mg/dL 8.5-10.1 [facility] Serum or plasma creatinine m easurement (mass/volume)Ordered By: Juan C Barnes on 05-21-2023 Creatinine [Mass/Vol] 1.42 mg/dL 0.70-1.30 [facility] Comment on above: The validity of the calculated GFR & GFRAA in patients over 70 years has not been determined. Clinical correlation is essential. Serum or plasma urea nitroge n measurement (mass/volume)Ordered By: Juan C Barnes on 05-21-2023 Urea nitrogen [Mass/Vol] 64 mg/dL 7-18 [facility] Thin prep Papanicolaou smear with manual screeningOrdered By: Juan C Barnes on 05-21-2023 Thin prep Papanicolaou smear with manual screening 5 5-15 [facility] Absolute lymphocyte countOrd ered By: Venancio Boswell on 05-15-2023 Lymphocytes Auto (Unsp spec) [#/Vol] 2.52 10*3/uL 0.83-4.51 [facility] Automated lymphocyte count a s percentage of total leukocytesOrdered By: Venancio Boswell on 05-15-2023 Lymphocytes/100 WBC Auto (Unsp spec) 14.0 % 19-41 [facility] Basophil percentageOrdered B y: Venancio Boswell on 05-15-2023 Basophil percentage 0 SEEN /hpf 0-5 [facility] Basophils/100 WBC (Bld) 0.3 % 0-1 [facility] Bilirubin [Mass/Vol] 0.30 mg/dL 0.20-1.00 [facility] Comment on above: For patients on eltr ombopag therapy, use of [employer] TBIL is not recommended. Chloride [Moles/Vol] 98 mmol/L 98-107 [facility] Eosinophils/100 WBC (Bld) 0.6 % 0-5 [facility] Glucose [Mass/Vol] 436 mg/dL 74-106 [facility] Comment on above: Glucose result great er than or equal to 200 mg/dLsuggests DIABETES MELLITUS per A.D.A. criteria. Hemoglobin (Bld) [Mass/Vol] 9.4 g/dL 13.0-16.5 [facility] Monocytes/100 WBC (Bld) 3.8 % 0-10 [facility] Neutrophils (Bld) [#/Vol] 14.5 10*3/uL 2.0-7.7 [facility] Neutrophils/100 WBC (Bld) 80.9 % 47-70 [facility] Potassium [Moles/Vol] 4.4 mmol/L 3.5-5.1 [facility] Protein [Mass/Vol] 8.4 g/dL 6.4-8.2 [facility] Sodium [Moles/Vol] 138 mmol/L 136-145 [facility] WBC (Bld) [#/Vol] 18.0 10*3/uL 4.4-11.0 [facility] Bilirubin Test strip Ql (U)O rdered By: Venancio Boswell on 05-15-2023 Bilirubin Ql (U) Negative Negative [facility] Determination of erythrocyte mean corpuscular volume (MCV)Ordered By: Venancio Boswell on 05-15-2023 MCV (RBC) [Entitic vol] 84.9 fL 80-94 [facility] Erythrocyte distribution wid th ratioOrdered By: Venancio Boswell on 05-15-2023 Erythrocyte distribution width (RBC) [Ratio] 11.9 % 11.6-14.6 [facility] Erythrocyte distribution wid th standard deviationOrdered By: Venancio Boswell on 05-15-2023 Erythrocyte distribution width (RBC) [Entitic vol] 36.3 fL 35.1-43.9 [facility] Hematocrit Auto (Bld) [Volum e fraction]Ordered By: Venancio Boswell on 05-15-2023 Hematocrit (Bld) [Volume fraction] 30.4 % 40-54 [facility] Immature granulocytes/100 WB C Auto (Bld)Ordered By: Venancio Boswell on 05-15-2023 Immature granulocytes/100 WBC (Bld) 0.400 % 0.0-0.9 [facility] Comment on above: IG% - Immature Granu locytes (promyelocytes, myelocytes and metamyelocytes) > 1% indicates that a LEFT SHIFT is Present. Ketones Test strip Ql (U)Ord ered By: Venancio Boswell on 05-15-2023 Ketones Ql (U) Negative Negative [facility] - Chemistry and C hemistry - challengeOrdered By: Venancio Boswell on 05-15-2023 Albumin/Globulin [Mass ratio] 0.4 {ratio} 0.9-2.4 [facility] ALP [Catalytic activity/Vol] 208 U/L 45-117 [facility] ALT [Catalytic activity/Vol] 72 U/L 16-61 [facility] CO2 [Moles/Vol] 32.0 mmol/L 21.0-32.0 [facility] Globulin (S) [Mass/Vol] 5.9 g/dL 2.2-4.2 [facility] Lipase [Catalytic activity/Vol] 77 U/L 13-75 [facility] Comment on above: Please note:LIPASE r evised reference range effective 22. New Lipase methodology. Expected to produce lower values than the previous assay method. NEW Reference Range: 13 - 75 U/L Urea nitrogen/Creatinine [Mass ratio] 22.7 mg/mg 10-20 [facility] - Hematology and Cell countsOrdered By: Venancio Boswell on 05-15-2023 MCH (RBC) [Entitic mass] 26.3 pg 27.0-32.0 [facility] MCHC (RBC) [Mass/Vol] 30.9 g/dL 32-36 [facility] Nucleated RBC/100 WBC (Bld) [Ratio] 0 % 0-5 [facility] Platelet mean volume (Bld) [Entitic vol] 11.2 fL 6.2-12.0 [facility] Platelets (Bld) [#/Vol] 549 10*3/uL 150-450 [facility] Mucus LM Ql (Urine sed)Order ed By: Venancio Boswell on 05-15-2023 Mucus Ql (Urine sed) 0 SEEN /hpf [facility] Nitrite Test strip Ql (U)Ord ered By: Venancio Boswell on 05-15-2023 Nitrite Ql (U) Negative Negative [facility] No Panel InformationOrdered By: Venancio Boswell on 05-15-2023 Urine RBC 0 SEEN /hpf 0-5 [facility] Estimated Creatinine Clearance Calc 66.05 ml/min [facility] Estimated GFR (MDRD) Amer 79 mL/min >60 [facility] Comment on above: GFR Calc Estimated GFR (MDRD) Non-Af Amer 66 mL/min >60 [facility] Comment on above: Non- GFR Calc Protein Test strip Ql (U)Ord ered By: Venancio Boswell on 05-15-2023 Protein Ql (U) 100 mg/dl Negative [facility] RBC Auto (Bld) [#/Vol]Ordere d By: Venancio Boswell on 05-15-2023 RBC (Bld) [#/Vol] 3.58 10*6/uL 4.6-6.2 [facility] Serum or plasma calcium ruslan urement (mass/volume)Ordered By: Venancio Boswell on 03-13-2024 Calcium [Mass/Vol] 10.5 mg/dL 8.5-10.1 [facility] Serum or plasma creatinine m easurement (mass/volume)Ordered By: Venancio Boswell on 05-15-2023 Creatinine [Mass/Vol] 1.19 mg/dL 0.70-1.30 [facility] Comment on above: The validity of the calculated GFR & GFRAA in patients over 70 years has not been determined. Clinical correlation is essential. Serum or plasma urea nitroge n measurement (mass/volume)Ordered By: Venancio Boswell on 05-15-2023 Urea nitrogen [Mass/Vol] 27 mg/dL 7-18 [facility] Squamous epithelial cells de tection in urine sediment by light microscopyOrdered By: Venancio Boswell on 05-15-2023 Epithelial cells.squamous LM Ql (Urine sed) 0-5 SEEN /hpf 0-5 [facility] Thin prep Papanicolaou smear with manual screeningOrdered By: Venancio Boswell on 05-15-2023 Thin prep Papanicolaou smear with manual screening 2.5 g/dL 3.2-5.0 [facility] Thin prep Papanicolaou smear with manual screening 20 U/L 15-37 [facility] Thin prep Papanicolaou smear with manual screening 8 5-15 [facility] Urine blood detectionOrdered By: Venancio Boswell on 05-15-2023 RBC Ql (U) Negative Negative [facility] Urine clarityOrdered By: Payam Boswell on 05-15-2023 Clarity (U) Clear Clear [facility] Urine color determinationOrd ered By: Venancio Boswell on 05-15-2023 Color (U) Yellow Yellow [facility] Urine glucose detectionOrder ed By: Venancio Boswell on 05-15-2023 Glucose Ql (U) 1000 mg/dl Normal [facility] Urine leukocyte esterase det ection by dipstickOrdered By: Venancio Boswell on 05-15-2023 Leukocyte esterase Test strip Ql (U) 25 /ul Negative [facility] Urine pHOrdered By: Venancio gramajo on 05-15-2023 pH (U) 7.0 [pH] 5.0 - 8.0 [facility] Urine sediment bacteria coun t by microscopy (number/high power field)Ordered By: Venancio Boswell on 05-15-2023 Bacteria LM.HPF (Urine sed) [#/Area] 0 /[HPF] None Seen [facility] Urine specific gravity measu rementOrdered By: Venancio Boswell on 05-15-2023 Specific gravity (U) [Rel density] 1.010 1.002-1.03 0 [facility] Urine urobilinogen measureme ntOrdered By: Venancio Boswell on 05-15-2023 Urobilinogen Ql (U) Normal mg/dl Normal [facility] Basophil percentageOrdered B y: Roverto Zavala on 05-10-2023 Chloride [Moles/Vol] 103 mmol/L 98-107 [facility] Glucose [Mass/Vol] 246 mg/dL 74-106 [facility] Comment on above: Glucose result great er than or equal to 200 mg/dLsuggests DIABETES MELLITUS per A.D.A. criteria. Hemoglobin (Bld) [Mass/Vol] 14.0 g/dL 13.0-16.5 [facility] Potassium [Moles/Vol] 3.6 mmol/L 3.5-5.1 [facility] Sodium [Moles/Vol] 136 mmol/L 136-145 [facility] WBC (Bld) [#/Vol] 5.1 10*3/uL 4.4-11.0 [facility] Determination of erythrocyte mean corpuscular volume (MCV)Ordered By: Roverto Zavala on 05-10-2023 MCV (RBC) [Entitic vol] 85.2 fL 80-94 [facility] Erythrocyte distribution wid th ratioOrdered By: Roverto Zavala on 05-10-2023 Erythrocyte distribution width (RBC) [Ratio] 12.0 % 11.6-14.6 [facility] Erythrocyte distribution wid th standard deviationOrdered By: Roverto Zavala on 05-10-2023 Erythrocyte distribution width (RBC) [Entitic vol] 37.2 fL 35.1-43.9 [facility] Hematocrit Auto (Bld) [Volum e fraction]Ordered By: Roverto Zavala on 05-10-2023 Hematocrit (Bld) [Volume fraction] 43.9 % 40-54 [facility] Laboratory - Chemistry and C hemistry - challengeOrdered By: Roverto Zavala on 05-10-2023 CO2 [Moles/Vol] 24.0 mmol/L 21.0-32.0 [facility] Urea nitrogen/Creatinine [Mass ratio] 16.2 mg/mg 10-20 [facility] - Hematology and Cell countsOrdered By: Roverto Zavala on 05-10-2023 MCH (RBC) [Entitic mass] 27.2 pg 27.0-32.0 [facility] MCHC (RBC) [Mass/Vol] 31.9 g/dL 32-36 [facility] Platelet mean volume (Bld) [Entitic vol] 12.1 fL 6.2-12.0 [facility] Platelets (Bld) [#/Vol] 105 10*3/uL 150-450 [facility] No Panel InformationOrdered By: Roverto Zavala on 05-10-2023 Estimated Creatinine Clearance Calc 109.11 ml/min [facility] Estimated GFR (MDRD) Amer 137 mL/min >60 [facility] Comment on above: GFR Calc Estimated GFR (MDRD) Non-Af Amer 114 mL/min >60 [facility] Comment on above: Non- GFR Calc RBC Auto (Bld) [#/Vol]Ordere d By: Roverto Zavala on 05-10-2023 RBC (Bld) [#/Vol] 5.15 10*6/uL 4.6-6.2 [facility] Serum or plasma calcium ruslan urement (mass/volume)Ordered By: Roverto Zavala on 05-10-2023 Calcium [Mass/Vol] 8.5 mg/dL 8.5-10.1 [facility] Serum or plasma creatinine m easurement (mass/volume)Ordered By: Roverto Zavala on 05-10-2023 Creatinine [Mass/Vol] 0.74 mg/dL 0.70-1.30 [facility] Comment on above: The validity of the calculated GFR & GFRAA in patients over 70 years has not been determined. Clinical correlation is essential. Serum or plasma trough vanco mycin levelOrdered By: Roverto Zavala on 05-10-2023 Vancomycin trough [Mass/Vol] 13.1 ug/mL 5.0-15.0 [facility] Comment on above: VANCOMYCIN STANDARED DRUG THERAPY TROUGH LEVEL: 5.0 - 15.0 mg/L VANCOMYCIN HIGH INTENSITY THERAPY TROUGH LEVEL: 15.0 - 20.0 mg/L High Intensity therapy recommended for serious lifethreatening infections include:- Jxopcgttum-Vfqniqoudueg-Yuurvqobn (Ventilator/Healtcare Associated)-Sepsis PLEASE CONTACT PHARMACY SERVICES (#[phone]) FOR INTERPRETATIONOF RESULTS. Serum or plasma urea nitroge n measurement (mass/volume)Ordered By: Roverto Zavala on 05-10-2023 Urea nitrogen [Mass/Vol] 12 mg/dL 7-18 [facility] Thin prep Papanicolaou smear with manual screeningOrdered By: Roverto Zavala on 05-10-2023 Thin prep Papanicolaou smear with manual screening 210 mg/dL 74-106 [facility] Comment on above: MANAGEMENT OF PATIEN T CARE PER NURSING PROTOCOL Thin prep Papanicolaou smear with manual screening 9 5-15 [facility] Whole blood hemoglobin A1c/t otal hemoglobin ratio (mass fraction)Ordered By: Roverto Zavala on 05-07-2023 HbA1c (Bld) [Mass fraction] 7.4 % 3.8-5.6 [facility] Comment on above: Normal < 5.7 % Predi abetic 5.7 - 6.4 % Diabetic >or= 6.5 % Please note range changes. Absolute lymphocyte countOrd ered By: Abril Barrera on 05-06-2023 Lymphocytes Auto (Unsp spec) [#/Vol] 2.50 10*3/uL 0.83-4.51 [facility] Automated lymphocyte count a s percentage of total leukocytesOrdered By: Abril Barrera on 05-06-2023 Lymphocytes/100 WBC Auto (Unsp spec) 22.3 % 19-41 [facility] Basophil percentageOrdered B y: Abril Barrera on 05-06-2023 Basophils/100 WBC (Bld) 0.4 % 0-1 [facility] Eosinophils/100 WBC (Bld) 0.2 % 0-5 [facility] Monocytes/100 WBC (Bld) 4.9 % 0-10 [facility] Neutrophils (Bld) [#/Vol] 8.1 10*3/uL 2.0-7.7 [facility] Neutrophils/100 WBC (Bld) 71.9 % 47-70 [facility] Basophil percentageOrdered B y: Jd Gonzalez on 05-06-2023 Lactate [Moles/Vol] 3.3 mmol/L 0.4-2.0 [facility] Comment on above: Critical Result(s) C alled at: 01:41:12 05/06/2023 by: Gregory Manrique. [facility]. Results read back by same. Immature granulocytes/100 WB C Auto (Bld)Ordered By: Abril Barrera on 05-06-2023 Immature granulocytes/100 WBC (Bld) 0.300 % 0.0-0.9 [facility] Comment on above: IG% - Immature Granu locytes (promyelocytes, myelocytes and metamyelocytes) > 1% indicates that a LEFT SHIFT is Present. Laboratory - Hematology and Cell countsOrdered By: Abril Barrera on 05-06-2023 Nucleated RBC/100 WBC (Bld) [Ratio] 0 % 0-5 [facility] Absolute lymphocyte countOrd ered By: Lawrence Skaggs on 05-05-2023 Lymphocytes Auto (Unsp spec) [#/Vol] 1.98 10*3/uL 0.83-4.51 [facility] Activated partial thrombopla stin time (aPTT) in platelet poor plasma by coagulation aOrdered By: Lawrence Skaggs on 05-05-2023 aPTT Coag (PPP) [Time] 22.6 s 24.1-36.2 [facility] Amorphous sediment detection in urine sediment by light microscopyOrdered By: Lawrence Skaggs on 05-05-2023 Amorphous sediment LM Ql (Urine sed) 4+ [facility] Automated lymphocyte count a s percentage of total leukocytesOrdered By: Lawrence Skaggs on 05-05-2023 Lymphocytes/100 WBC Auto (Unsp spec) 13.0 % 19-41 [facility] Base excessOrdered By: Galileo Skaggs on 05-05-2023 Base excess Calc (BldV) [Moles/Vol] 9 mmol/L -1.0-3.5 [facility] Basophil percentageOrdered B y: Lawrence Skaggs on 05-05-2023 Basophil percentage 0-5 SEEN /hpf 0-5 [facility] Basophils/100 WBC (Bld) 0.5 % 0-1 [facility] Bilirubin [Mass/Vol] 0.40 mg/dL 0.20-1.00 [facility] Comment on above: For patients on eltr ombopag therapy, use of [employer] TBIL is not recommended. Chloride [Moles/Vol] 106 mmol/L 98-107 [facility] Eosinophils/100 WBC (Bld) 0.1 % 0-5 [facility] Glucose [Mass/Vol] 370 mg/dL 74-106 [facility] Comment on above: Glucose result great er than or equal to 200 mg/dLsuggests DIABETES MELLITUS per A.D.A. criteria. Hemoglobin (Bld) [Mass/Vol] 12.9 g/dL 13.0-16.5 [facility] Lactate [Moles/Vol] 3.0 mmol/L 0.4-2.0 [facility] Comment on above: Critical Result(s) C alled at: 12:42:21 05/05/2023 by: Lo Lennon. Results read back by same. Monocytes/100 WBC (Bld) 8.2 % 0-10 [facility] Neutrophils (Bld) [#/Vol] 11.8 10*3/uL 2.0-7.7 [facility] Neutrophils/100 WBC (Bld) 77.9 % 47-70 [facility] Potassium [Moles/Vol] 4.7 mmol/L 3.5-5.1 [facility] Protein [Mass/Vol] 7.0 g/dL 6.4-8.2 [facility] Sodium [Moles/Vol] 143 mmol/L 136-145 [facility] WBC (Bld) [#/Vol] 15.2 10*3/uL 4.4-11.0 [facility] Bilirubin Test strip Ql (U)O rdered By: Lawrence Skaggs on 05-05-2023 Bilirubin Ql (U) Negative Negative [facility] CO2 (BldV) [Moles/Vol]Ordere d By: Lawrence Skaggs on 05-05-2023 CO2 [Moles/Vol] 35 mmol/L 23-33 [facility] Culture, urineOrdered By: Hanna Skaggs on 05-05-2023 Bacteria identified Cx Nom (U) Culture exhibits no growth. [facility] Bacteria identified Cx Nom (U) Culture exhibits no growth. [facility] Determination of erythrocyte mean corpuscular volume (MCV)Ordered By: Lawrence Skaggs on 05-05-2023 MCV (RBC) [Entitic vol] 87.8 fL 80-94 [facility] Erythrocyte distribution wid th ratioOrdered By: Lawrence Skaggs on 05-05-2023 Erythrocyte distribution width (RBC) [Ratio] 12.4 % 11.6-14.6 [facility] Erythrocyte distribution wid th standard deviationOrdered By: Lawrence Skaggs on 05-05-2023 Erythrocyte distribution width (RBC) [Entitic vol] 39.8 fL 35.1-43.9 [facility] Hematocrit Auto (Bld) [Volum e fraction]Ordered By: Lawrence Skaggs on 05-05-2023 Hematocrit (Bld) [Volume fraction] 41.6 % 40-54 [facility] Immature granulocytes/100 WB C Auto (Bld)Ordered By: Lawrence Skaggs on 05-05-2023 Immature granulocytes/100 WBC (Bld) 0.300 % 0.0-0.9 [facility] Comment on above: IG% - Immature Granu locytes (promyelocytes, myelocytes and metamyelocytes) > 1% indicates that a LEFT SHIFT is Present. Ketones Test strip Ql (U)Ord ered By: Lawrence Skaggs on 05-05-2023 Ketones Ql (U) 5 mg/dl Negative [facility] Laboratory - Chemistry and C hemistry - challengeOrdered By: Lawrence Skaggs on 05-05-2023 HCO3 (Bld) [Moles/Vol] 33 mmol/L 22-26 [facility] Albumin/Globulin [Mass ratio] 0.8 {ratio} 0.9-2.4 [facility] ALP [Catalytic activity/Vol] 96 U/L 45-117 [facility] ALT [Catalytic activity/Vol] 26 U/L 16-61 [facility] CO2 [Moles/Vol] 32.0 mmol/L 21.0-32.0 [facility] Globulin (S) [Mass/Vol] 4.0 g/dL 2.2-4.2 [facility] Urea nitrogen/Creatinine [Mass ratio] 45.3 mg/mg 10-20 [facility] Laboratory - CoagulationOrde red By: Lawrence Skaggs on 05-05-2023 INR Coag (Bld) [Relative time] 1.1 {INR} [facility] PT Coag (PPP) [Time] 14.2 s 11.7-14.9 [facility] Laboratory - Hematology and Cell countsOrdered By: Lawrence Skaggs on 05-05-2023 MCH (RBC) [Entitic mass] 27.2 pg 27.0-32.0 [facility] MCHC (RBC) [Mass/Vol] 31.0 g/dL 32-36 [facility] Nucleated RBC/100 WBC (Bld) [Ratio] 0 % 0-5 [facility] Platelet mean volume (Bld) [Entitic vol] 12.7 fL 6.2-12.0 [facility] Platelets (Bld) [#/Vol] 219 10*3/uL 150-450 [facility] Laboratory - Microbiology an d Antimicrobial susceptibilityOrdered By: Lawrence Skaggs on 05-05-2023 SARS-CoV-2 (COVID-19) RNA YARA+probe Ql (Unsp spec) [facility] Bacteria identified Cx Nom (Bld) No growth in 5 days. [facility] SARS-CoV-2 (COVID-19) RNA YARA+probe Ql (Unsp spec) [facility] Bacteria identified Cx Nom (Bld) No growth in 5 days. [facility] Lower GI hemoglobin IA Ql (S tl)Ordered By: Lawrence Skaggs on 05-05-2023 Stool Occult Blood (JOANA) Positive [facility] Stool Occult Blood (JOANA) Positive [facility] Mucus LM Ql (Urine sed)Order ed By: Lawrence Skaggs on 05-05-2023 Mucus Ql (Urine sed) 0 SEEN /hpf [facility] Nitrite Test strip Ql (U)Ord ered By: Lawrence Skaggs on 05-05-2023 Nitrite Ql (U) Negative Negative [facility] No Panel InformationOrdered By: Abril Barrera on 05-05-2023 Methicillin-Resist S.aureus DNA PCR Negative Negative [facility] No Panel InformationOrdered By: Lawrence Skaggs on 05-05-2023 Urine RBC 10-25 SEEN /hpf 0-5 [facility] Ethyl Alcohol Level < 3.0 mg/dL [facility] Comment on above: The serum:whole bloo d ethanol ratio is approximately 1.14and varies slightly with hematocrit. Medical Alcohol reference interval and critical value innon-tolerant individuals; 50 - 100 Impairment 100 Intoxication 100 - 250 Severe Poisoning 250 - 400 Deep/possible fatal coma Blood Gas Oxygen Percent 15.0 [facility] Blood Gas Sample Site Not entered [facility] Blood Gas Specimen Type JER [facility] Oxygen Delivery Device HFNC [facility] Estimated Creatinine Clearance Calc 47.37 ml/min [facility] Estimated GFR (MDRD) Amer 53 mL/min >60 [facility] Comment on above: GFR Calc Estimated GFR (MDRD) Non-Af Amer 44 mL/min >60 [facility] Comment on above: Non- GFR Calc Troponin I High Sensitivity 7 pg/mL 3.0-78.0 [facility] Comment on above: Please Note: New La t Units and Gender Specific Reference Ranges. For more information see Policy Stat [employer] High Sensitivity Troponin (TNIH) and attachments. PCO2 venousOrdered By: Galileo Skaggs on 05-05-2023 CO2 (BldV) [Partial pressure] 48.7 mm[Hg] 41-51 [facility] PO2 venousOrdered By: Lawrence Skaggs on 05-05-2023 Oxygen (BldV) [Partial pressure] 22 mm[Hg] 25-40 [facility] Protein Test strip Ql (U)Ord ered By: Lawrence Skaggs on 05-05-2023 Protein Ql (U) 100 mg/dl Negative [facility] RBC Auto (Bld) [#/Vol]Ordere d By: Lawrence Skaggs on 05-05-2023 RBC (Bld) [#/Vol] 4.74 10*6/uL 4.6-6.2 [facility] Serum or plasma acetone ruslan urement (mass/volume)Ordered By: Lawrence Skaggs on 05-05-2023 Acetone [Mass/Vol] Negative NEG [facility] Serum or plasma calcium ruslan urement (mass/volume)Ordered By: Lawrence Skaggs on 03-03-2024 Calcium [Mass/Vol] 10.1 mg/dL 8.5-10.1 [facility] Serum or plasma creatinine m easurement (mass/volume)Ordered By: Lawrence Skaggs on 05-05-2023 Creatinine [Mass/Vol] 1.70 mg/dL 0.70-1.30 [facility] Comment on above: The validity of the calculated GFR & GFRAA in patients over 70 years has not been determined. Clinical correlation is essential. Serum or plasma urea nitroge n measurement (mass/volume)Ordered By: Lawrence Skaggs on 05-05-2023 Urea nitrogen [Mass/Vol] 77 mg/dL 7-18 [facility] Squamous epithelial cells de tection in urine sediment by light microscopyOrdered By: Lawrence Skaggs on 05-05-2023 Epithelial cells.squamous LM Ql (Urine sed) 0 SEEN /hpf 0-5 [facility] Staphylococcus aureus DNA de tection by probe and target amplification methodOrdered By: Abril Barrera on 05-05-2023 S. aureus DNA YARA+probe Ql (Unsp spec) Positive Negative [facility] Thin prep Papanicolaou smear with manual screeningOrdered By: Lawrence Skaggs on 05-05-2023 Thin prep Papanicolaou smear with manual screening 3.0 g/dL 3.2-5.0 [facility] Thin prep Papanicolaou smear with manual screening 9 U/L 15-37 [facility] Thin prep Papanicolaou smear with manual screening 5 5-15 [facility] Urine blood detectionOrdered By: Lawrence Skaggs on 05-05-2023 RBC Ql (U) 250 /ul Negative [facility] Urine clarityOrdered By: Itzel Skaggs on 05-05-2023 Clarity (U) Cloudy Clear [facility] Urine color determinationOrd ered By: Lawrenec Skaggs on 05-05-2023 Color (U) Yellow Yellow [facility] Urine glucose detectionOrder ed By: Lawrence Skaggs on 05-05-2023 Glucose Ql (U) 50 mg/dl Normal [facility] Urine leukocyte esterase det ection by dipstickOrdered By: Lawrence Skaggs on 05-05-2023 Leukocyte esterase Test strip Ql (U) 25 /ul Negative [facility] Urine pHOrdered By: Lawrence banda on 05-05-2023 pH (U) 6.5 [pH] 5.0 - 8.0 [facility] Urine sediment bacteria coun t by microscopy (number/high power field)Ordered By: Lawrence Skaggs on 05-05-2023 Bacteria LM.HPF (Urine sed) [#/Area] 0 /[HPF] None Seen [facility] Urine specific gravity measu rementOrdered By: Lawrence Skaggs on 05-05-2023 Specific gravity (U) [Rel density] 1.015 1.002-1.03 0 [facility] Urine urobilinogen measureme ntOrdered By: Lawrence Skaggs on 05-05-2023 Urobilinogen Ql (U) 1 mg/dl Normal [facility] Venous blood pH measurementO rdered By: Lawrence Skaggs on 05-05-2023 pH (BldV) 7.44 [pH] 7.32-7.42 [facility] Vital signsOrdered By: Galileo Skaggs on 05-05-2023 Oxygen saturation in Blood 39 % 50-70 [facility] CASE MANAGEMon 12-10-2022 CASE MANAGEM HNO ID: [id number] Author: Karen Mahan RN Service: ? Author Type: Registered Nurse Type: Care Mgt Progress Note Filed: 12/10/2022 2:54 PM Note Text: CARE MANAGEMENT PROGRESS NOTE SERVICE DATE: 12/10/2022 SERVICE TIME: 2:54 PM LOS: 1 day [facility] has set transport for this patient for 630pm. MD and nursing staff notified. DC packet on chart with facesheet and HANDP. SIGNATURE: Karen Mahan RN PATIENT NAME: Drea Copeland DATE: December 10, 2022 TIME: 2:54 PM PAGER/CONTACT #: [phone] [facility] CASE MANAGEM HNO ID: [id number] Author: Karen Mahan RN Service: ? Author Type: Registered Nurse Type: Care Mgt Progress Note Filed: 12/10/2022 2:06 PM Note Text: CARE MANAGEMENT PROGRESS NOTE SERVICE DATE: 12/10/2022 SERVICE TIME: 2:05 PM LOS: 1 day Per Kay with [facility] transfer [facility], they will accept patient. Awaiting transport time. Form with patient and MD signature faxed back to [facility] this date. SIGNATURE: Karen Mahan RN PATIENT NAME: Drea Copeland DATE: December 10, 2022 TIME: 2:05 PM PAGER/CONTACT #: [phone] Normal [facility] CBC panel Auto (Bld)on 12-10 Erythrocyte distribution width (RBC) [Ratio] 11.9 % Normal 11.5-15.0 [facility] Comment on above: Order Comment: Speci men Type: BLOOD SPECIMEN Ordering Facility: [facility] Address: [address] [place] [address] Performed By: #### 2 4321-2, 5643-2, 4024-6, 3298-7 #### [facility] CLIA [id number] [address] [place] [address] [place] Hematocrit (Bld) [Volume fraction] 48.6 % Normal 39.0-51.0 [facility] Comment on above: Order Comment: Speci men Type: BLOOD SPECIMEN Ordering Facility: [facility] Address: [address] [place] [address] Performed By: #### 2 4321-2, 5643-2, 4024-6, 3298-7 #### [facility] CLIA [id number] [address] [place] [address] [place] Hemoglobin (Bld) [Mass/Vol] 16.5 g/dL Normal 13.0-17.0 [facility] Comment on above: Order Comment: Speci men Type: BLOOD SPECIMEN Ordering Facility: [facility] Address: [address] [place] [address] Performed By: #### 2 4321-2, 5643-2, 4024-6, 3298-7 #### [facility] CLIA [id number] [address] [place], [place] [address] [place] MCH (RBC) [Entitic mass] 28.8 pg Normal 26.0-34.0 [facility] Comment on above: Order Comment: Speci men Type: BLOOD SPECIMEN Ordering Facility: [facility] Address: [address] [id number] Performed By: #### 2 4321-2, 5643-2, 4024-6, 3298-7 #### [facility] CLIA [id number] [address] [place] [address] [place] MCHC (RBC) [Mass/Vol] 34.0 g/dL Normal 30.5-36.0 [facility] Comment on above: Order Comment: Speci men Type: BLOOD SPECIMEN Ordering Facility: [facility] Address: [address] [id number] Performed By: #### 2 4321-2, 5643-2, 4024-6, 3298-7 #### [facility] CLIA [id number] [address] [place] [address] [place] MCV (RBC) [Entitic vol] 84.8 fL Normal 80.0-100.0 [facility] Comment on above: Order Comment: Speci men Type: BLOOD SPECIMEN Ordering Facility: [facility] Address: [address] [id number] Performed By: #### 2 4321-2, 5643-2, 4024-6, 3298-7 #### [facility] CLIA [id number] [address] [place], [place] [address] [place] Nucleated RBC (Bld) [#/Vol] 10*3/uL Normal <0.01 [facility] Comment on above: Order Comment: Speci men Type: BLOOD SPECIMEN Ordering Facility: [facility] Address: [address] [id number] Performed By: #### 2 4321-2, 5643-2, 4024-6, 3298-7 #### [facility] CLIA [id number] [address] [place] [address] [place] Platelet mean volume (Bld) [Entitic vol] 10.3 fL Normal 9.0-12.7 [facility] Comment on above: Order Comment: Speci men Type: BLOOD SPECIMEN Ordering Facility: [facility] Address: [address] [place], [place] [address] Performed By: #### 2 4321-2, 5643-2, 4024-6, 3298-7 #### [facility] CLIA [id number] [address] [place], [place] [address] [place] Platelets (Bld) [#/Vol] 204 10*3/uL Normal 150-400 [facility] Comment on above: Order Comment: Speci men Type: BLOOD SPECIMEN Ordering Facility: [facility] Address: [address] [place] [address] Performed By: #### 2 4321-2, 5643-2, 4024-6, 3298-7 #### [facility] CLIA [id number] [address] [place], [place] [address] [place] RBC (Bld) [#/Vol] 5.73 10*6/uL Normal 4.20-6.00 [facility] Comment on above: Order Comment: Felixi sona Type: BLOOD SPECIMEN Ordering Facility: [facility] Address: [address] [place], [place] [address] Performed By: #### 2 4321-2, 5643-2, 4024-6, 3298-7 #### [facility] CLIA [id number] [address] [place], [place] [address] [place] WBC (Bld) [#/Vol] 7.22 10*3/uL Normal 3.70-11.00 [facility] Comment on above: Order Comment: Speci men Type: BLOOD SPECIMEN Ordering Facility: [facility] Address: [address] [place], [place] [address] Performed By: #### 2 4321-2, 5643-2, 4024-6, 3298-7 #### [facility] CLIA [id number] [address] [place], [place] [address] [facility] [place] CONSULTon 12-10-2022 CONSULT HNO ID: [id number] Author: Vishal Oneal DO Service: Neurology General Author Type: Physician Type: Consults Filed: 12/10/2022 4:07 PM Note Text: INITIAL CONSULT - GENERAL NEUROLOGY SERVICE DATE: 12/10/2022 Current Attending Provider: Cha Willingham DO Reason for Evaluation: Acute stroke HPI: This is Mr. Drea Copeland a 62 year old male who presented to the [facility] with right hemiparesis and word finding problems originally came to the emergency room then left AMA. Apparently over the weekend symptoms progressed came into the emergency room blood pressure was well over 220 was further admitted for stroke evaluation. He continues to have aphasia right upper extremity greater than lower extremity weakness not necessarily worse. 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 Current Facility-Administered Medications Medication Dose Route Frequency NaCl 0.9% iv flush bag 20 mL INTRAVENOUS PRN sodium chloride 0.9 % (flush) 2-10 mL (BD POSIFLUSH) 2-10 mL INTRAVENOUS DIRECTED PRN And perflutren lipid microspheres 1.1 mg/mL 1.3 mL injection (DEFINITY) 1.3 mL INTRAVENOUS DIRECTED PRN NaCl 0.9% iv infusion 75 mL/hr INTRAVENOUS CONTINUOUS dextrose 40 % 15 g 15 g ORAL PRN Or glucagon 1 mg injection 1 mg INTRAMUSCULAR PRN Or dextrose 10% iv bolus 12.5 g INTRAVENOUS PRN insulin lispro injection (rapid acting) (HumaLOG) SUBCUTANEOUS w MEALS aspirin 81 mg chewable tab(s) 81 mg ORAL DAILY clopidogrel 75 mg tab(s) (PLAVIX) 75 mg ORAL DAILY atorvastatin 40 mg tab(s) (LIPITOR) 40 mg ORAL AT BEDTIME hydrALAZINE 10 mg injection (APRESOLINE) 10 mg INTRAVENOUS q 4 H PRN heparin 5,000 Units injection 5,000 Units SUBCUTANEOUS q 12 H PAST MEDICAL HISTORY Diagnosis Date Diabetes (HCC) Dyslipidemia Hypertension Smoking PAST SURGICAL HISTORY Procedure Laterality Date NONE Social History Tobacco Use Smoking status: Every Day Packs/day: 1 Types: Cigarettes Smokeless tobacco: Never Substance Use Topics Alcohol use: Yes Alcohol/week: 14.0 standard drinks of alcohol Types: 14 Shots of liquor per week Drug use: Not Currently No family history on file. ALLERGIES No Known Allergies None REVIEW OF SYSTEMS: Pertinent positives and negatives reviewed in above HPI otherwise are negative PHYSICAL EXAM: Blood pressure 178/107, pulse 92, temperature 37 ?C (98.6 ?F), temperature source Oral, resp. rate 18, height 170.2 cm (5' 7), weight 79.5 kg (175 lb 4.8 oz), SpO2 97 %. Neurological: Expressive aphasia some comprehensive component on complex right upper extremity moderate to severely weak mild right-sided weakness and leg LABS/DATA: Recent Labs 12/10/22 0446 12/09/22 0758 CHOL 252* -- LDL 180* -- WBC 7.22 6.59 HB 16.5 16.7 HCT 48.6 49.0 PLT 204 194 NA 142 142 K 4.0 3.7 CHLOR 107 104 CO2 22 27 CREAT 1.01 1.03 BUN 10 9 GLUC 183* 201* TPROT 6.6 6.9 ALB 3.7 3.9 MG 1.5* 1.5* CA 9.3 9.6 ALKPHOS 100 107 TBILI 1.1* 1.1* AST 16 17 ALT 15 17 LIPASE -- 37 APTT -- 30.8 INR -- 1.2 Cholesterol, Total (mg/dL) Date Value 12/10/2022 252 LDL Cholesterol (mg/dL) Date Value 12/10/2022 180 HDL Cholesterol (mg/dL) Date Value 12/10/2022 37 Triglyceride (mg/dL) Date Value 12/10/2022 174 Hemoglobin A1C (%) Date Value 12/10/2022 8.1 CTA Head and/or Neck - Last 2 CTA NECK W IVCON Exam End: 12/09/2022 10:33 AM (Final result) Impression: IMPRESSION: No large vessel occlusion or high-grade stenosis in the head or neck. Arterial blood flow was measured to detect acute large vessel occlusion by computer aided detection software: Not Performed. Curriculum Assistant: [facility] Transcribe Date/Time: Dec 09 2022 10:34A Dictated by : CHA MCNAMARA MD This examination was interpreted and the report reviewed and electronically signed by: CHA MCNAMARA MD on Dec 09 2022 10:39AM EST CTA HEAD W IVCON Exam End: 12/09/2022 10:33 AM (Final result) Impression: IMPRESSION: No large vessel occlusion or high-grade stenosis in the head or neck. Arterial blood flow was measured to detect acute large vessel occlusion by computer aided detection software: Not Performed. Curriculum Assistant: [facility] Transcribe Date/Time: Dec 09 2022 10:34A Dictated by : CHA MCNAMARA MD This examination was interpreted and the report reviewed and electronically signed by: CHA MCNAMARA MD on Dec 09 2022 10:39AM EST CT Head/Brain - Last [address] BRAIN WO IVCON Exam End: 12/09/2022 9:22 AM (Final result) Impression: IMPRESSION: Chronic changes are stable. No acute process. Curriculum Assistant: DONTAE Transcribe Date/Time: Dec 09 2022 9:24A Dictated by : JENNA KNOX MD This examination was interpreted and the report reviewed and electronically signed by: JENNA KNOX MD on Dec 09 2022 9:25AM EST CT BRAIN ATTACK WO IVCON Exam En (more content not included)... [facility] CONSULT HNO ID: [id number] Author: Sandy Aquino APRN.[employer] Service: Neurology Stroke Author Type: Nurse Practitioner Type: Consults Filed: 12/10/2022 9:49 AM Note Text: Rivet Maker Note SERVICE DATE: 12/10/2022 SERVICE TIME: 9:22 AM PCP: [facility] OSMIN MARTIN REASON FOR STROKE EVALUATION: Aphasia, right hemiparesis Subjective HPI: 62 year old male who awoke on 12/06/2022 with a right hemiparesis and difficulty getting his words out. Came to ED on 12/06/22 for evaluation, but ultimately left AMA. His significant other of 15 years (Leigh) tells me that over the weekend his aphasia and right hemiparesis progressed thus prompting his return to the ED via EMS yesterday. Initial BP was 230/113. 169/100 this AM. Leigh says he smokes about 1ppd, drinks 2 shots per day and does not consistently take his medications for HTN, Hyperlipidemia and DM. He does not take Aspirin with any regularity. PAST MEDICAL HISTORY Diagnosis Date Diabetes (HCC) Dyslipidemia Hypertension Smoking PAST SURGICAL HISTORY Procedure Laterality Date NONE SOCIAL HISTORY Social History Tobacco Use Smoking status: Every Day Packs/day: 1 Types: Cigarettes Smokeless tobacco: Never Substance Use Topics Alcohol use: Yes Alcohol/week: 14.0 standard drinks of alcohol Types: 14 Shots of liquor per week Drug use: Not Currently No family history on file. ALLERGIES No Known Allergies MEDICATION Pre-admission No medications prior to admission. Current Current Facility-Administered Medications Medication Dose Route Frequency Provider Last Rate Last Admin magnesium sulfate 1 g in D5W 100 mL 1 g INTRAVENOUS q 1 H Cha Willingham DO iv contrast (radiology procedure) INTRAVENOUS DIRECTED PRN Hubert Bustillo MD NaCl 0.9% iv flush bag 20 mL INTRAVENOUS PRN Hubert Bustillo MD sodium chloride 0.9 % (flush) 2-10 mL (BD POSIFLUSH) 2-10 mL INTRAVENOUS DIRECTED PRN Dean Mcginnis DO And perflutren lipid microspheres 1.1 mg/mL 1.3 mL injection (DEFINITY) 1.3 mL INTRAVENOUS DIRECTED PRN Dean Mcginnis DO NaCl 0.9% iv infusion 75 mL/hr INTRAVENOUS CONTINUOUS Dean Mcginnis DO 75 mL/hr at 12/10/22600 75 mL/hr at 12/10/22600 dextrose 40 % 15 g 15 g ORAL PRN Dean Mcginnis DO Or glucagon 1 mg injection 1 mg INTRAMUSCULAR PRN Dean Mcginnis DO Or dextrose 10% iv bolus 12.5 g INTRAVENOUS PRN Dean Mcginnis DO insulin lispro injection (rapid acting) (HumaLOG) SUBCUTANEOUS w MEALS Dean Mcginnis DO 2 Units at 12/10/22609 aspirin 81 mg chewable tab(s) 81 mg ORAL DAILY Dean Mcginnis DO 81 mg at 12/09/222049 clopidogrel 75 mg tab(s) (PLAVIX) 75 mg ORAL DAILY Dean Mcginnis DO 75 mg at 12/09/222049 atorvastatin 40 mg tab(s) (LIPITOR) 40 mg ORAL AT BEDTIME Dean Mcginnis DO 40 mg at 12/09/222049 hydrALAZINE 10 mg injection (APRESOLINE) 10 mg INTRAVENOUS q 4 H PRN Dean Mcginnis DO heparin 5,000 Units injection 5,000 Units SUBCUTANEOUS q 12 H Dean Mcginnis DO 5,000 Units at 12/09/222049 REVIEW OF SYSTEMS ROS limited given aphasia with inconsistent responses. . Objective PHYSICAL EXAM Vital Signs: BP 174/95 Pulse 88 Temp 36.9 ?C (98.5 ?F) (Oral) Resp 18 Ht 170.2 cm (5' 7) Wt 79.5 kg (175 lb 4.8 oz) SpO2 98% BMI 27.46 kg/m? MENTAL STATUS: Alert, oriented to person. Cannot correctly state the month, year or his age. Has difficulty following verbal commands and can only follow with about 50% accuracy. Has expressive and receptive aphasia. Naming 1/3. Perseverates answers. Answers, at times, are obviously incorrect or out of context to the question asked. Can repeat. CRANIAL NERVES: PERRLA, Extraocular movements intact, Hearing intact to finger rub bilaterally, and Tongue protrudes midline. Right central facial weakness. Decreased blink to visual threat on the right. MOTOR STRENGTH: LUE and LLE strength wnl. Right Hemiparesis- No movement of the RUE. RUE with increased tone. Right leg- can lift it off the bed and hold it up for a few seconds 3/5. SENSATION: Intact light touch COORDINATION: No obvious ataxia on the left. Cannot test the right due to severity of weakness. GAIT: Not attempted for safety. Physical Exam NIHSS: NIHSS Score LOC 0 = Alert and Attentive LOC Questions 2 = Neither LOC Commands 1 = One command LOC Normal Gaze 0 = Normal Visual [place] 2 = Complete Hemianopia Facial Palsy 2 = Complete, lower Motor Left Arm 0 = No drift Motor Right Arm 4 Motor Left Leg 0 = No drift Motor Right Leg 1 = Drift, but does not hit bed Limb Ataxia 0 = Absent Sensory 0 = Normal Language 2 = Severe Dysarthria 1 = Mild to Moderate Extinction/Neglect 0 = Absent NIHSS Total (0-42): 15 DATA: Diagnostic tests reviewed for today's visit: 12/09/2022 CTA COW/Carotids- IMPRESSION: No large vessel occlusion or high-grade stenosis in the head or neck. Arterial blood (more content not included)... Normal [facility] Comprehensive metabolic 2000 panelon 12-10-2022 Albumin [Mass/Vol] 3.7 g/dL Normal 3.2-5.0 [facility] Comment on above: Order Comment: Speci men Type: BLOOD SPECIMEN Ordering Facility: [facility] Address: [place] [address] Performed By: #### 2 4321-2, 5643-2, 4024-6, 3298-7 #### [facility] CLIA [id number] [address] [place] [address] [facility] ALP [Catalytic activity/Vol] 100 U/L Normal 45-117 [facility] Comment on above: Order Comment: Speci men Type: BLOOD SPECIMEN Ordering Facility: [facility] Address: [address] [place] [address] Performed By: #### 2 4321-2, 5643-2, 4024-6, 3298-7 #### [facility] CLIA [id number] [address] [place] [address] STATES OF [facility] ALT [Catalytic activity/Vol] 15 U/L Normal 13-61 [facility] Comment on above: Order Comment: Speci men Type: BLOOD SPECIMEN Ordering Facility: [facility] Address: [address] [place] [address] Result Comment: Resu lts may be falsely depressed after the administration of Sulfasalazine and/or Sulfapyridine. Performed By: #### 2 4321-2, 5643-2, 4024-6, 329-7 #### [facility] CLIA [id number] [address] [place] [address] Anion gap [Moles/Vol] 13 mmol/L Normal 5-16 [facility] Comment on above: Order Comment: Speci men Type: BLOOD SPECIMEN Ordering Facility: [facility] Address: [address] [place] [address] Performed By: #### 2 4321-2, 5643-2, 4024-6, 3298-7 #### [facility] CLIA [id number] [address] [place] [address] OF [facility] AST [Catalytic activity/Vol] 16 U/L Normal 8-34 [facility] Comment on above: Order Comment: Speci men Type: BLOOD SPECIMEN Ordering Facility: [facility] Address: [address] [place] [address] Result Comment: Resu lts may be falsely depressed after the administration of Sulfasalazine and/or Sulfapyridine. Performed By: #### 2 4321-2, 5643-2, 4024-6, 3298-7 #### [facility] CLIA [id number] [address] [place] [address] [place] Bilirubin [Mass/Vol] 1.1 mg/dL High 0.2-1.0 [facility] Comment on above: Order Comment: Speci men Type: BLOOD SPECIMEN Ordering Facility: [facility] Address: [address] [place] [address] Performed By: #### 2 4321-2, 5643-2, 4024-6, 3298-7 #### [facility] CLIA [id number] [address] [place] [address] [place] Calcium [Mass/Vol] 9.3 mg/dL Normal 8.5-10.5 [facility] Comment on above: Order Comment: Speci men Type: BLOOD SPECIMEN Ordering Facility: [facility] Address: [address] [place] [address] Performed By: #### 2 4321-2, 5643-2, 4024-6, 3297 #### [facility] CLIA [id number] [address] [place] [address] [place] Chloride [Moles/Vol] 107 mmol/L Normal 98-107 [facility] Comment on above: Order Comment: Speci men Type: BLOOD SPECIMEN Ordering Facility: [facility] Address: [address] [place] [address] Performed By: #### 2 4321-2, 5643-2, 4024-6, 329-7 #### [facility] CLIA [id number] [address] [place], [place] [address] [place] CO2 [Moles/Vol] 22 mmol/L Normal 21-32 [facility] Comment on above: Order Comment: Speci men Type: BLOOD SPECIMEN Ordering Facility: [facility] Address: [address] [place] [address] Performed By: #### 2 4321-2, 5643-2, 4024-6, 329-7 #### [facility] CLIA [id number] [address] [place], [place] [address] [place] Creatinine [Mass/Vol] 1.01 mg/dL Normal 0.50-1.40 [facility] Comment on above: Order Comment: Fatmata magallanes Type: BLOOD SPECIMEN Ordering Facility: [facility] Address: [address] [place] [address] Result Comment: Bianka ents receiving either N-Acetylcysteine (NAC) or Metamizole prior to venipuncture, may have falsely depressed results. Performed By: #### 2 4321-2, 5643-2, 4024-6, 3298-7 #### [facility] CLIA [id number] [address] [place] [address] [place] Creatinine and Glomerular filtration rate.predicted panel (S/P/Bld) 84 mL/min/1.73m??? Normal >=60 [facility] Comment on above: Order Comment: Fatmata magallanes Type: BLOOD SPECIMEN Ordering Facility: [facility] Address: [address] [place] [address] Result Comment: Rocio mated Glomerular Filtration Rate (eGFR) is calculated using the 2020 CKD-EPI creatinine equation. This equation utilizes serum creatinine, sex, and age as parameters. The creatinine assay has traceable calibration to isotope dilution-mass spectrometry. Refer to KDIGO guidelines for clinical interpretation. In patients with unstable renal function, e.g. those with acute kidney injury, the eGFR may not accurately reflect actual GFR. Performed By: #### 2 4321-2, 5643-2, 4024-6, 3298-7 #### [facility] CLIA [id number] [address] [place], [place] [address] [place] Glucose [Mass/Vol] 183 mg/dL High 70-100 [facility] Comment on above: Order Comment: Fatmata magallanes Type: BLOOD SPECIMEN Ordering Facility: [facility] Address: [address] [id number] Result Comment: The [place] Diabetes Association (ADA) provides guidance for cutoff values for fasting glucose and random glucose. The ADA defines fasting as no caloric intake for at least 8 hours. Fasting plasma glucose results between 100 to 125 mg/dL indicate increased risk for diabetes (prediabetes). Fasting plasma glucose results greater than or equal to 126 mg/dL meet the criteria for diagnosis of diabetes. In the absence of unequivocal hyperglycemia, results should be confirmed by repeat testing. In a patient with classic symptoms of hyperglycemia or hyperglycemic crisis, random plasma glucose results greater than or equal to 200 mg/dL meet the criteria for diagnosis of diabetes. Reference: Standards of Medical Care in Diabetes 2016, [place] Diabetes Association. Diabetes Care. 2016.39(Suppl 1). Results may be falsely elevated after the administration of Sulfapyridine. Results may be falsely depressed after the administration of Sulfasalazine. Performed By: #### 2 4321-2, 5643-2, 4024-6, 3298-7 #### [facility] CLIA [id number] [address] [place] [address] [place] Potassium [Moles/Vol] 4.0 mmol/L Normal 3.5-5.1 [facility] Comment on above: Order Comment: Speci sona Type: BLOOD SPECIMEN Ordering Facility: [facility] Address: [address] [place] [address] Performed By: #### 2 4321-2, 5643-2, 4024-6, 329-7 #### [facility] CLIA [id number] [address] [place] [address] [place] Protein [Mass/Vol] 6.6 g/dL Normal 6.0-8.5 [facility] Comment on above: Order Comment: Fatmata magallanes Type: BLOOD SPECIMEN Ordering Facility: [facility] Address: [address] [id number] Performed By: #### 2 4321-2, 5643-2, 4024-6, 329-7 #### [facility] CLIA [id number] [address] [place] [address] [place] Sodium [Moles/Vol] 142 mmol/L Normal 136-145 [facility] Comment on above: Order Comment: Felixi men Type: BLOOD SPECIMEN Ordering Facility: [facility] Address: [address] [place] [address] Performed By: #### 2 4321-2, 5643-2, 4024-6, 3298-7 #### [facility] CLIA [id number] [address] [place], [place] [address] [place] Urea nitrogen [Mass/Vol] 10 mg/dL Normal 7- [facility] Comment on above: Order Comment: Speci men Type: BLOOD SPECIMEN Ordering Facility: [facility] Address: [place] [address] Performed By: #### 2 4321-2, 5643-2, 4024-6, 3298-7 #### [facility] CLIA [id number] [address] [place], [place] [address] [facility] ECHOon 12-10-2022 Echocardiography Echocardiography Rep ort: Transthoracic Echo [facility] Date of service: 12/10/2022 9:53:25 AM Ordering physician: DEAN MCGINNIS Indication: Initial evaluation of Heart Failure Technologist: Alexandra Nuñez [facility] Interpreting physician: Aj Elias MD PATIENT: Name: DREA COPELAND : 1960 Age: 62 years Gender: M History of hypertension, diabetes mellitus, dyslipidemia and smoker. Primary rhythm: sinus. Height: 170.20 cm BSA: 2.09 m Weight: 92.08 kg BMI: 31.8 kg/m Heart rate 89 bpm Blood pressure 162/90 mmHg Color Doppler was utilized to interrogate the cardiac valves assessed and spectral Doppler was utilized to determine the flow velocities and pressure gradients reported in this exam. MEASUREMENTS: Value Indexed Normal Max aortic dimension 3.1 cm Ao < 3.8 Left atrial volume 51 ml (biplane A-L) 24 ml/m Marcela <= 34 LV ID (diastole) 4.2 cm (2D) 2.01 cm/m LV ID (systole) 3.0 cm (2D) 1.44 cm/m IVS, leaflet tips 1.2 cm (2D) Posterior wall thickness 1.2 cm (2D) Left ventricular mass 178 g (2D) 85 g/m LV stroke volume 50 ml (2D biplane) LVOT stroke volume 62 ml 30 ml/m LV end diastolic volume 81 ml (2D biplane) 38.6 ml/m 34<=EDVi<75 LV end systolic volume 30 ml (2D biplane) 14.5 ml/m Ejection Fraction 62 % (2D biplane) EF > 52 FINDINGS: LEFT VENTRICLE The left ventricle is normal in size. There is moderate concentric left ventricular hypertrophy. Left ventricular systolic function is normal. Grade I left ventricular diastolic dysfunction. Mitral annular lateral E/e': 6.5. Mitral annular septal E/e': 11.4. Wall Motion: All scored segments are normal. RIGHT VENTRICLE The right ventricle is normal in size. Right ventricular systolic function is normal. RV systolic tissue Doppler velocity is 19.3 cm/s. Tricuspid annular displacement is 1.6 cm. Estimated right ventricular systolic pressure is not reported due to an insufficient tricuspid regurgitation signal. Estimated right atrial pressure is 3 mmHg based on IVC assessment. LEFT ATRIUM The left atrial cavity is normal in size. RIGHT ATRIUM The right atrial cavity is normal in size. Inferior Vena Cava: The inferior vena cava appears normal measuring 1.5 cm. The vessel decreases greater than 50 percent with inspiration. MITRAL VALVE There is no mitral stenosis. There is trace mitral valve regurgitation. The pressure half time is 54 msec. The peak mitral E/A ratio is 0.58. The average mitral E/e' ratio is 8.9. The mitral flow deceleration time is 187 msec. TRICUSPID VALVE There is no tricuspid stenosis. There is trace tricuspid valve regurgitation. AORTIC VALVE There is no aortic valve stenosis. There is no aortic valve regurgitation. Tricuspid aortic valve. The peak gradient is 4 mmHg (peak velocity = 98.6 cm/s). The mean gradient is 2 mmHg. The LVOT mean velocity is 70.9 cm/s. The LVOT diameter is 2.1 cm. The aortic VTI is 16.6 cm. The mean velocity in the aortic valve is 65.4 cm/s. The dimensionless valve index is 1.08. AV area is 3.73 cm (1.79 cm /m ) by continuity, VTI. The LVOT stroke volume index is 30 ml/m . PULMONIC VALVE There is no pulmonic stenosis. There is trace pulmonic valve regurgitation. AORTA The visualized aorta is normal in size. Measurements - Sinus: 3.1 cm. Sinotubular junction 2.6 cm. PERICARDIUM The pericardium is normal. There is no pericardial effusion. CONCLUSIONS: - Exam indication: Initial evaluation of Heart Failure - The left ventricle is normal in size. There is moderate concentric left ventricular hypertrophy. Left ventricular systolic function is normal. EF = 62 5% (2D biplane) Grade I left ventricular diastolic dysfunction. - The right ventricle is normal in size. Right ventricular systolic function is normal. - No significant valvular abnormalities. - The patient has not had a prior CC echocardiographic exam for comparison. * * * Final * * * CC [employer] : [id number] [employer] Normal [facility] HbA1c (Bld)on 12-10-2022 Average glucose Estimated from glycated hemoglobin (Bld) [Mass/Vol] 186 mg/dL [facility] Comment on above: Order Comment: Fatmata magallanes Type: BLOOD SPECIMEN Ordering Facility: [facility] Address: [address] [place] [address] Result Comment: eAG: (Estimated average glucose) is a calculated value from HgbA1c and is computer help desk representative of the average blood glucose level in the last 2-3 month period. Performed By: #### 2 4321-2, 5643-2, 4024-6, 3298-7 #### [facility] CLIA [id number] [address] [place] [address] [place] HbA1c (Bld) [Mass fraction] 8.1 % High 4.3-6.0 [facility] Comment on above: Order Comment: Fatmata magallanes Type: BLOOD SPECIMEN Ordering Facility: [facility] Address: [address] [place] [address] Result Comment: [place] Diabetes Association guidelines indicate that patients with HgbA1c in the range 5.7-6.4% are at increased risk for development of diabetes, and intervention by lifestyle modification may be beneficial. HgbA1c greater or equal to 6.5% is considered diagnostic of diabetes. Performed By: #### 2 4321-2, 5643-2, 4024-6, 3298-7 #### [facility] CLIA [id number] [address] [place] [address] [place] Lipid 1996 panelon 3 Cholesterol [Mass/Vol] 252 mg/dL High 0-199 [facility] Comment on above: Order Comment: Fatmata magallanes Type: BLOOD SPECIMEN Ordering Facility: [facility] Address: [address] [place] [address] Result Comment: <200 mg/dL, Desirable 200-239 mg/dL, Borderline high >239 mg/dL, High Performed By: #### 2 4321-2, 5643-2, 4024-6, 3298-7 #### [facility] CLIA [id number] [address] [place], [place] [address] [facility] Cholesterol in HDL [Mass/Vol] 37 mg/dL Low >40 [facility] Comment on above: Order Comment: Fatmata magallanes Type: BLOOD SPECIMEN Ordering Facility: [facility] Address: [address] [place] [address] Result Comment: 40-5 9 mg/dL, Acceptable >59 mg/dL, High: Negative risk factor for coronary heart disease <40 mg/dL, Low: Positive risk factor for coronary heart disease Performed By: #### 2 4321-2, 5643-2, 4024-6, 9218-7 #### [facility] CLIA [id number] [address] [place] [address] [facility] Cholesterol in LDL [Mass/Vol] 180 mg/dL High 0-129 [facility] Comment on above: Order Comment: Fatmata magallanes Type: BLOOD SPECIMEN Ordering Facility: [facility] Address: [address] [place] [address] Result Comment: <100 mg/dL, Optimal 100-129 mg/dL, Near optimal/above optimal 130-159 mg/dL, Borderline high 160-189 mg/dL, High >189 mg/dL, Very high Secondary prevention optimal LDL Cholesterol levels are recommended to be < 70 mg/dL Performed By: #### 2 4321-2, 5643-2, 4024-6, 1288-7 #### [facility] CLIA [id number] [address] [place] [address] [facility] Cholesterol in LDL/Cholesterol in HDL [Mass ratio] 4.86 {ratio} High <2.54 [facility] Comment on above: Order Comment: Speci men Type: BLOOD SPECIMEN Ordering Facility: [facility] Address: [address] [place] [place] [address] Result Comment: Brittni berg: 1. National Cholesterol Education Program ATP III Guideline At-A-Glance Quick Desk Reference: National Heart, Lung, and Blood [place]. National Institutes of Health. 2001: NIH Publication No. 01-3305. 2. An International Atherosclerosis Society position paper: global recommendations for the management of dyslipidemia: executive summary, Atherosclerosis. 2014: 232(2):410-413. Performed By: #### 2 4321-2, 5643-2, 4024-6, 3298-7 #### [facility] CLIA [id number] [address] [place] [address] [place] Cholesterol in VLDL [Mass/Vol] 35 mg/dL High <30 [facility] Comment on above: Order Comment: Speci men Type: BLOOD SPECIMEN Ordering Facility: [facility] Address: [address] [place] [address] Performed By: #### 2 4321-2, 5643-2, 4024-6, 3298-7 #### [facility] CLIA [id number] [address] [place] [address] [place] Cholesterol non HDL [Mass/Vol] 215 mg/dL High <130 [facility] Comment on above: Order Comment: Speci men Type: BLOOD SPECIMEN Ordering Facility: [facility] Address: [address] [place] [address] Result Comment: <130 mg/dL, Optimal 130-159 mg/dL, Near optimal/above optimal 160-189 mg/dL, Borderline high 190-219 mg/dL, High >219 mg/dL, Very high Secondary prevention optimal non HDL Cholesterol levels are recommended to be <100 mg/dL Performed By: #### 2 4321-2, 5643-2, 4024-6, 3298-7 #### [facility] CLIA [id number] [address] [place], [place] [address] [place] Cholesterol.total/Heidy sterol in HDL [Mass ratio] 6.81 {ratio} High <5.10 [facility] Comment on above: Order Comment: Speci men Type: BLOOD SPECIMEN Ordering Facility: [facility] Address: [address] [id number] Performed By: #### 2 4321-2, 5643-2, 4024-6, 3298-7 #### [facility] CLIA [id number] [address] [place], [place] [address] [facility] FASTING TIME 0 hrs Normal [facility] Comment on above: Order Comment: Speci men Type: BLOOD SPECIMEN Ordering Facility: [facility] Address: [address] [place] [address] Performed By: #### 2 4321-2, 5643-2, 4024-6, 3298-7 #### [facility] CLIA [id number] [address] [place], [place] [address] [place] [facility] Triglyceride [Mass/Vol] 174 mg/dL High 30-149 M [facility] Comment on above: Order Comment: Speci men Type: BLOOD SPECIMEN Ordering Facility: [facility] Address: [address] [place] [address] Result Comment: <150 mg/dL, Normal 150-199 mg/dL, Borderline high 200-499 mg/dL, High >499 mg/dL, Very high Patients receiving either N-Acetylcysteine (NAC) or Metamizole prior to venipuncture, may have falsely depressed results. Performed By: #### 2 4321-2, 5643-2, 4024-6, 3298-7 #### [facility] CLIA [id number] [address] [place], [place] [address] [place] MRI BRAIN WO IVCONon 023 MRI BRAIN WO IVCON * * *Final Report* * * DATE OF EXAM: Dec 10 2022 9:39AM [facility] 0294 - MRI BRAIN WO IVCON / PROCEDURE REASON: Transient ischemic attack (TIA) * * * * Physician Interpretation * * * * EXAMINATION: MRI BRAIN WO IVCON CLINICAL HISTORY: Aphasia, right-sided weakness x1 week TECHNIQUE: Routine noncontrast MRI protocol including diffusion images. MQ: [id number] COMPARISON: CT head 12/09/2022, 12/06/2022, CTA head 12/09/2022 RESULT: Acute Change: There are multiple areas of restricted diffusion in the left mesial temporal lobe and periventricular white matter involving the left hippocampal body with contiguous extension into the left periatrial white matter, left thalamus/thalamocapsular junction, and posterior limb of the internal capsule compatible with acute infarcts, likely within the left anterior choroidal artery territory. There is associated T2 and FLAIR hyperintensity with minimal localized mass effect. No significant gradient echo artifact to suggest associated hemorrhage. Hemorrhage: No evidence of prior parenchymal hemorrhage on the gradient echo images. Mass Lesion/ Mass Effect: No evidence of an intracranial mass or extra-axial fluid collection. Minimal localized mass effect associated with the acute infarcts. Chronic Change: Extensive, confluent increased T2 and FLAIR signal is present in the supratentorial white matter which is nonspecific but likely represents extensive chronic microvascular ischemia. There are remote infarcts in the bilateral lentiform nuclei, thalami, anterior limbs of the internal capsules, external capsules, and whitaker radiata as well as small remote infarcts in bilateral cerebellar hemispheres. Small remote lacunar infarct in the left genu of the corpus callosum. Tiny remote lacunar infarct in the right paramedian fritz. Parenchyma: There is mild to moderate generalized parenchymal volume loss. The brain parenchyma is otherwise within normal limits of signal intensity and morphology. Ventricles: Ventriculomegaly corresponds to the degree of parenchymal volume loss. Skull Base: Hypothalamic and pituitary region are grossly normal. Craniocervical junction is normal. No significant marrow replacement process. Vasculature: Major intracranial arterial structures, and dural venous sinuses show typical flow void, suggesting patency by spin echo criteria. Other: There is complete opacification of the right maxillary sinus with medial extension resulting in partial obstruction of the right middle meatus. Mild T1 hyperintensity and heterogeneous T2 material in the right maxillary sinus could reflect increased proteinaceous content. Findings could reflect postobstructive chronic inspissated secretions from obstructing nasal mass such as nasal polyp. The remainder of the visualized paranasal sinuses and mastoid air cells are clear. The orbits and extracranial soft tissues are unremarkable. IMPRESSION: Acute infarcts in the left mesial temporal lobe, posterior limb of the internal capsule and lateral thalamus, likely in the left anterior choroidal artery territory. No associated parenchymal hemorrhage. Minimal mass effect. Extensive chronic microvascular ischemic changes with numerous superimposed remote lacunar and cerebellar infarcts. Chronic inflammatory changes in the right maxillary sinus with complete opacification by post obstructive secretions, which could reflect obstructing nasal mass such as a nasal polyp.. Curriculum Assistant: DONTAE Transcribe Date/Time: Dec 10 2022 9:40A Dictated by : CESARIO WILLIAMSON DO This examination was interpreted and the report reviewed and electronically signed by: WM REYEZ MD on Dec 10 2022 10:32AM EST [id number] Normal [facility] Magnesium SerPl-mCncon 12-10 Magnesium [Mass/Vol] 1.5 mg/dL Low 1.6-2.6 [facility] Comment on above: Order Comment: Speci men Type: BLOOD SPECIMEN Ordering Facility: [facility] Address: [address] [place] [address] Performed By: #### 2 4321-2, 5643-2, 4024-6, 3298-7 #### [facility] CLIA [id number] [address] [place] [address] OF [facility] NURSING PROGon 12-10-2022 NURSING PROG HNO ID: [id number] Author: Miranda Guzman RN Service: Nursing Author Type: Registered Nurse Type: Nursing Progress Note Filed: 12/10/2022 6:55 PM Note Text: Medication given for high blood pressure. Patient alert to Person and Place.. Sister at bedside, updated on patient status with patient's permission. Second bag of Mag hung at this time. Normal [facility] NURSING PROG HNO ID: [id number] Author: Miranda Guzman RN Service: Nursing Author Type: Registered Nurse Type: Nursing Progress Note Filed: 12/10/2022 3:41 PM Note Text: Lost patient's IV site, RN attempted x2 with no success. Peer Rn attempted x1 with no success. Awaiting arrival of staff with ultrasound machine. Normal [facility] SARS-CoV-2 RNA Resp Ql YARA+p robeon 12-10-2022 SARS-CoV-2 (COVID-19) RNA YARA+probe Ql (Resp) COVID 19 RESULT: Not detected The method used is RT-PCR or an equivalent NAAT method. Reference Range(the expected result in uninfected individuals): Not detected [facility] Comment on above: Performed By: #### 2 4321-2, 5643-2, 4024-6, 3298-7 #### [facility] CLIA [id number] [address] [place] [address] [place] THERAPY NTon 12-10-2022 THERAPY NT HNO ID: [id number] Author: Robinson Chowdhury, PT Service: Physical Therapy Author Type: Physical Therapist Type: Therapy (PT/OT/Speech/Resp) Filed: 12/10/2022 2:28 PM Note Text: Physical Therapy Evaluation SERVICE DATE: 12/10/2022 SERVICE TIME: 1320 to 1346 ROOM: [place] [address] Recommended Discharge Disposition: Acute Rehab Recommended Discharge Disposition Due to: Patient requires an active, intensive rehabilitation therapy program due to:, anticipate community discharge/previous community dweller, decline in functional status requiring daily skilled care, ongoing intervention of multiple therapy disciplines, poor trunk control PT 6 Clicks Score: 8 Precautions/Activity Restrictions: Fall Risk Current Hospital Course: Pt presents to [facility] with stroke like symptoms. He was admitted for further testing and treatment Reason for Hospital Admission: CVA, R facial droop, R weakness, HTN urgency Relevant Past Medical History: HTN, DM, EtOHA abuse Pt tolerated PT evaluation fairly. Pt presents with limitations in all mobility and required physical assistance and cuing for safety. They would be unsafe to return home at this time. They would benefit from further therapeutic services in order to decrease their impairments and increase their function Response to Therapy Interventions: Good Participation in Activities, Low Activity Tolerance Continued Skilled Needs Due to: Functional Mobility/Skill Impairments, Safety Concerns Physical Therapy Problem List: Safety Deficits, Decreased Activity Tolerance, Decreased Strength, Functional Mobility Impairment, Balance Impaired Treatment Interventions: Education, Functional Mobility Training, Balance Training, Neuromuscular Re-education, Strengthening Plan for Next Visit: Bed Mobility, Fall Prevention, Gait Training, Sit to Stand Transfers, Sitting Balance, Standing Balance, Standing Tolerance Home Environment Patient Lives With: Significant Other Assistance Available: 24-Hour Entry To Home: Stairs, With Rail Number Of Stairs Into Home: 12 Number Of Stairs To Bed/Bath: 12 Stairs to Bed/Bath with: Unilateral Rail Tub/Shower Type: walk in shower Equipment Owned: Grab Bars- Shower, Shower Chair Prior Functional Level: Within Functional Limits Prior Functional Level Comments: Pt reports independence with all activity prior to admission. He reports ambulating without an AD CURRENT FUNCTIONAL STATUS: Most recent performance Current Functional Mobility Assist Level Additional Information Rolling Supine to Sit Maximal Assistance, Additional Information pt with instability and increased lateral sway in sitting. Pt c/o dizziness upon sitting and was unable to attempt standing Sit to Supine Maximal Assistance Scooting Sit to Stand Stand to Sit Bed to Chair Toilet/Commode Gait Stairs Curb Step Car Transfer Blank montgomery indicate activity not attempted Range of Motion: WFL Strength: Strength Limitation Comments Strength Limitation Comments: R UE grossly 1/5, R LE grossly 1/ Vital Signs Pulse: 93 SpO2: 98 % O2 Therapy: Room Air Balance: Static Sitting Static Sitting Balance: Fair Patient able to maintain balance with handhold support, may require occasional minimal assistance JH-HLM: 3: Sit at edge of bed Learning/Educational Needs: Plan of Care Goals for Plan of Care: Patient/Caregiver Goals: Walk, Go Home Goals: Patient will demonstrate understanding of importance of mobility during hospital stay and resolve all functional needs identified. Transfer Supine to/from Sit with: Minimal Assistance Transfer Sit to/from Stand with: Minimal Assistance Ambulate with: Minimal Assistance Distance: 40 Device: Wheeled Walker Rehab Potential: Good Patient will be discontinued from Physical Therapy when no further skilled needs are identified in this setting. PLAN: PT Frequency: 5 Times Per Week Plan of Care developed with: Patient, Family TREATMENT INTERVENTIONS: Therapy Diagnosis: Reduced mobility-other, Muscle Weakness (generalized) Interventions Provided: Evaluation, Therapeutic Activity (05837) $ Evaluation-Moderate (00764) Billed Units: 1 unit Therapeutic Activity (12308) Treatment Minutes: 11 $ Therapeutic Activity (33910) Billed Units: 1 unit Training AND Education Provided in: Anatomy and Impact on Deficits, Assistive Device Use, Bed Mobility, Benefits of In-Hospital Mobility, Discharge Planning, Disease Specific Education, Expected Functional Level, Falls Prevention, Gait Pattern, Reduction of Deviations, Positioning, Precautions/Restrictions, Role of Physical Therapy, Transfers The Following Therapeutic Skills Were Used: Cues for Sequencing/Proper Technique for Activity, Cuing Verbal, Movement Facilitation, Physical Assist Timed Code Treatment (minutes): 11 Skilled Treatment Time (minutes): 26 Please see discipline specific clinical documentation flowsheet for complete details (more content not included)... [facility] THERAPY NT HNO ID: [id number] Author: Becky Graham OTR/L Service: Occupational Therapy Author Type: Occupational Therapist Type: Therapy (PT/OT/Speech/Resp) Filed: 12/10/2022 10:52 AM Note Text: OCCUPATIONAL THERAPY MISSED VISIT SERVICE DATE: 12/10/2022 SERVICE TIME: 1052 to 1052 ROOM: [place] [address] ([facility]ARD [facility]) Patient not seen due to Test / Procedure (Card lab). SIGNATURE: Becky Graham OTR/L PATIENT NAME: Drea Copeland DATE: December 10, 2022 TIME: 10:52 AM Normal [facility] CBC W Auto Differential pane l (Bld)on 12-09-2022 Basophils (Bld) [#/Vol] 0.04 10*3/uL Normal <0.11 [facility] Comment on above: Order Comment: Speci men Type: BLOOD SPECIMEN Ordering Facility: [facility] Address: [address] [place] [address] Performed By: #### 5 8410-2 #### [facility] CLIA [id number] [address] [place] [address] [place] Basophils/100 WBC (Bld) 0.6 % Normal [facility] Comment on above: Order Comment: Speci men Type: BLOOD SPECIMEN Ordering Facility: [facility] Address: [address] [place] [address] Performed By: #### 5 8410-2 #### [facility] CLIA [id number] [address] [place] [address] [place] Differential cell count method Nom (Bld) Auto Normal [facility] Comment on above: Order Comment: Speci men Type: BLOOD SPECIMEN Ordering Facility: [facility] Address: [address] [place] [address] Performed By: #### 5 8410-2 #### [facility] CLIA [id number] [address] [place] [address] [place] Eosinophils (Bld) [#/Vol] 0.08 10*3/uL Normal <0.46 [facility] Comment on above: Order Comment: Speci men Type: BLOOD SPECIMEN Ordering Facility: [facility] Address: [address] [place] [address] Performed By: #### 5 8410-2 #### [facility] CLIA [id number] [address] [place] [address] [place] Eosinophils/100 WBC (Bld) 1.2 % Normal [facility] Comment on above: Order Comment: Speci men Type: BLOOD SPECIMEN Ordering Facility: [facility] Address: [address] [place] [address] Performed By: #### 5 8410-2 #### [facility] CLIA [id number] [address] [place] [address] [place] Erythrocyte distribution width (RBC) [Ratio] 11.6 % Normal 11.5-15.0 [facility] Comment on above: Order Comment: Speci men Type: BLOOD SPECIMEN Ordering Facility: [facility] Address: [address] [place] [address] Performed By: #### 5 8410-2 #### [facility] CLIA [id number] [address] [place] [address] [place] Hematocrit (Bld) [Volume fraction] 49.0 % Normal 39.0-51.0 [facility] Comment on above: Order Comment: Speci men Type: BLOOD SPECIMEN Ordering Facility: [facility] Address: [address] [place] [address] Performed By: #### 5 8410-2 #### [facility] CLIA [id number] [address] [place] [address] [place] Hemoglobin (Bld) [Mass/Vol] 16.7 g/dL Normal 13.0-17.0 [facility] Comment on above: Order Comment: Speci men Type: BLOOD SPECIMEN Ordering Facility: [facility] Address: [address] [place] [address] Performed By: #### 5 8410-2 #### [facility] CLIA [id number] [address] [place] [address] [place] Immature granulocytes (Bld) [#/Vol] 10*3/uL Normal <0.10 [facility] Comment on above: Order Comment: Speci men Type: BLOOD SPECIMEN Ordering Facility: [facility] Address: [address] [place] [address] Performed By: #### 5 8410-2 #### [facility] CLIA [id number] [address] [place] [address] [place] Immature granulocytes/100 WBC (Bld) 0.3 % Normal [facility] Comment on above: Order Comment: Speci men Type: BLOOD SPECIMEN Ordering Facility: [facility] Address: [address] [place] [address] Performed By: #### 5 8410-2 #### [facility] CLIA [id number] [address] [place] [address] [place] Lymphocytes (Bld) [#/Vol] 2.22 10*3/uL Normal 1.00-4.00 [facility] Comment on above: Order Comment: Speci men Type: BLOOD SPECIMEN Ordering Facility: [facility] Address: [address] [place] [address] Performed By: #### 5 8410-2 #### [facility] CLIA [id number] [address] [place] [address] [place] Lymphocytes/100 WBC (Bld) 33.7 % Normal [facility] Comment on above: Order Comment: Speci men Type: BLOOD SPECIMEN Ordering Facility: [facility] Address: [address] [place] [address] Performed By: #### 5 8410-2 #### [facility] CLIA [id number] [address] [place] [address] [place] MCH (RBC) [Entitic mass] 28.9 pg Normal 26.0-34.0 [facility] Comment on above: Order Comment: Speci men Type: BLOOD SPECIMEN Ordering Facility: [facility] Address: [address] [place] [address] Performed By: #### 5 8410-2 #### [facility] CLIA [id number] [address] [place] [address] [place] MCHC (RBC) [Mass/Vol] 34.1 g/dL Normal 30.5-36.0 [facility] Comment on above: Order Comment: Speci men Type: BLOOD SPECIMEN Ordering Facility: [facility] Address: [address] [place] [address] Performed By: #### 5 8410-2 #### [facility] CLIA [id number] [address] [place] [address] [place] MCV (RBC) [Entitic vol] 84.8 fL Normal 80.0-100.0 [facility] Comment on above: Order Comment: Speci men Type: BLOOD SPECIMEN Ordering Facility: [facility] Address: [address] [place] [address] Performed By: #### 5 8410-2 #### [facility] CLIA [id number] [address] [place] [address] [place] Monocytes (Bld) [#/Vol] 0.37 10*3/uL Normal <0.87 [facility] Comment on above: Order Comment: Speci men Type: BLOOD SPECIMEN Ordering Facility: [facility] Address: [address] [place] [address] Performed By: #### 5 8410-2 #### [facility] CLIA [id number] [address] [place] [address] [place] Monocytes/100 WBC (Bld) 5.6 % Normal [facility] Comment on above: Order Comment: Speci men Type: BLOOD SPECIMEN Ordering Facility: [facility] Address: [address] [place] [address] Performed By: #### 5 8410-2 #### [facility] CLIA [id number] [address] [place] [address] [place] Neutrophils (Bld) [#/Vol] 3.86 10*3/uL Normal 1.45-7.50 [facility] Comment on above: Order Comment: Speci men Type: BLOOD SPECIMEN Ordering Facility: [facility] Address: [address] [place] [address] Performed By: #### 5 8410-2 #### [facility] CLIA [id number] [address] [place] [address] [place] Neutrophils/100 WBC (Bld) 58.6 % Normal [facility] Comment on above: Order Comment: Speci men Type: BLOOD SPECIMEN Ordering Facility: [facility] Address: [address] [place] [address] Performed By: #### 5 8410-2 #### [facility] CLIA [id number] [address] [place] [address] [place] Nucleated RBC (Bld) [#/Vol] 10*3/uL Normal <0.01 [facility] Comment on above: Order Comment: Speci men Type: BLOOD SPECIMEN Ordering Facility: [facility] Address: [address] [place] [address] Performed By: #### 5 8410-2 #### [facility] CLIA [id number] [address] [place] [address] [place] Nucleated RBC/100 WBC (Bld) [Ratio] 0.0 /100 WBC Normal [facility] Comment on above: Order Comment: Speci men Type: BLOOD SPECIMEN Ordering Facility: [facility] Address: [address] [place] [address] Performed By: #### 5 8410-2 #### [facility] CLIA [id number] [address] [place] [address] [place] Platelet mean volume (Bld) [Entitic vol] 10.3 fL Normal 9.0-12.7 [facility] Comment on above: Order Comment: Speci men Type: BLOOD SPECIMEN Ordering Facility: [facility] Address: [address] [place] [address] Performed By: #### 5 8410-2 #### [facility] CLIA [id number] [address] [place] [address] [place] Platelets (Bld) [#/Vol] 194 10*3/uL Normal 150-400 [facility] Comment on above: Order Comment: Speci men Type: BLOOD SPECIMEN Ordering Facility: [facility] Address: [address] [place] [address] Performed By: #### 5 8410-2 #### [facility] CLIA [id number] [address] [place], [place] [address] [place] RBC (Bld) [#/Vol] 5.78 10*6/uL Normal 4.20-6.00 [facility] Comment on above: Order Comment: Speci men Type: BLOOD SPECIMEN Ordering Facility: [facility] Address: [address] [place] [id number] Performed By: #### 5 8410-2 #### [facility] CLIA [id number] [address] [place], [place] [address] [facility] [place] WBC (Bld) [#/Vol] 6.59 10*3/uL Normal 3.70-11.00 [facility] Comment on above: Order Comment: Speci men Type: BLOOD SPECIMEN Ordering Facility: [facility] Address: [address] [id number] Performed By: #### 5 8410-2 #### [facility] CLIA [id number] [address] [place], [place] [address] [facility] CT BRAIN WO IVCONon 12-10-[address] BRAIN WO IVCON * * *Final Report* * * DATE OF EXAM: Dec 09 2022 9:22AM [facility] 0504 - CT BRAIN WO IVCON / PROCEDURE REASON: Neuro deficit, acute, stroke suspected * * * * Physician Interpretation * * * * EXAMINATION: CT BRAIN WO IVCON CLINICAL HISTORY: TECHNIQUE: Serial axial images without IV contrast were obtained from the vertex to the foramen magnum. MQ: CTBWO_3 CT Radiation dose: Integrated Dose-Length Product (DLP) for this visit = 770.97 mGy*cm CT Dose Reduction Employed: Iterative recon COMPARISON: None. RESULT: Post-operative change: None. Acute change: No evidence of an acute infarct or other acute parenchymal process. Hemorrhage: No evidence of acute intracranial hemorrhage. ECASS hemorrhagic transformation score: Not Applicable Mass Lesion / Mass Effect: There is no evidence of an intracranial mass or extraaxial fluid collection. No significant mass effect. Chronic change: Extensive confluent foci of low attenuation are present in the supratentorial white matter which is nonspecific but likely represents extensive microvascular ischemia. Parenchyma: There is moderate generalized volume loss. The brain parenchyma is otherwise within normal limits for age. Ventricles: The ventricles are within normal limits of size and configuration for age. Paranasal sinuses and skull base: Chronic opacification with periosteal reaction right maxillary sinus, unchanged. The skull base and imaged soft tissues are unremarkable. Hard Candy Spinner (topogram) images: Unremarkable. IMPRESSION: Chronic changes are stable. No acute process. Curriculum Assistant: PSCB Transcribe Date/Time: Dec 09 2022 9:24A Dictated by : JENNA KNOX MD This examination was interpreted and the report reviewed and electronically signed by: JENNA KNOX MD on Dec 09 2022 9:25AM EST [id number] [facility] CTA HEAD W IVCONon CTA HEAD W IVCON * * *Final Report* * * DATE OF EXAM: Dec 09 2022 10:33AM [facility] 0022 - CTA HEAD W IVCON / PROCEDURE REASON: Neuro deficit, acute, stroke suspected * * * * Physician Interpretation * * * * CTA NECK W IVCON, CTA HEAD W IVCON HISTORY: Neuro deficit, acute, stroke suspected TECHNIQUE: CTA head and neck. 3-D post-processed images were created, reviewed and archived. MQ: CTAHN_3 Contrast: IV administration of 80 cc Isovue 300 Dose-Length Product (DLP): 479.61 mGy*cm CT Dose Reduction Employed: Automated exposure control(AEC) and iterative recon COMPARISON: CT brain 12/09/2022, CTA head/neck 12/06/2022 RESULT: BRAIN: Evaluation of the individual slices of the CTA demonstrates no evidence of an acute stroke. ASPECT Score = 10 Hemorrhage: No evidence of acute intracranial hemorrhage. ECASS hemorrhagic transformation score: Not Applicable Complete opacification of the right maxillary sinus, a component of which may be reactive/odontogenic secondary to multiple adjacent maxillary periapical lucencies, with prominent bulging of the medial wall into the right nasal cavity, and thickening/sclerosis of the sinus junior compatible with chronic osteitis. NECK: Soft tissues: Within normal limits. Spine: Straightening of the cervical lordosis. Mild spondylosis. Lungs: The imaged lungs are clear. CT ARTERIOGRAM: EXTRACRANIAL CIRCULATION: Aortic arch and branch vessels: Conventional 3-vessel arch branch anatomy. No significant stenosis in the proximal brachiocephalic vessels. Carotid Stenosis: Right Common: No significant stenosis. Right Internal Carotid Plaque: No significant plaque formation. Right Internal Carotid Stenosis (% by NASCET Criteria): 0% Left Common: No significant stenosis. Left Internal Carotid Plaque: No significant plaque formation. Left Internal Carotid Stenosis (% by NASCET Criteria): 0% Cervical Vertebral Arteries: Patency: Bilateral Dominance: Right INTRACRANIAL CIRCULATION: Anterior circulation: Distal ICAs, ACAs and MCAs are normal in caliber. A1 segments are codominant. Posterior circulation: Distal vertebral arteries, basilar trunk and steamship agent are normal in caliber. No vessel cut off, filling defect, significant focal narrowing, or evidence of aneurysm. Opacified dural venous sinuses and major deep and superficial draining veins are patent. Hard Candy Spinner (topogram) images: No additional findings. IMPRESSION: No large vessel occlusion or high-grade stenosis in the head or neck. Arterial blood flow was measured to detect acute large vessel occlusion by computer aided detection software: Not Performed. Curriculum Assistant: DONTAE Transcribe Date/Time: Dec 09 2022 10:34A Dictated by : CHA MCNAMARA MD This examination was interpreted and the report reviewed and electronically signed by: CHA MCNAMARA MD on Dec 09 2022 10:39AM EST [id number] Normal [facility] CTA NECK W IVCONon CTA NECK W IVCON * * *Final Report* * * DATE OF EXAM: Dec 09 2022 10:33AM [facility] 0024 - CTA NECK W IVCON / PROCEDURE REASON: Neuro deficit, acute, stroke suspected * * * * Physician Interpretation * * * * CTA NECK W IVCON, CTA HEAD W IVCON HISTORY: Neuro deficit, acute, stroke suspected TECHNIQUE: CTA head and neck. 3-D post-processed images were created, reviewed and archived. MQ: CTAHN_3 Contrast: IV administration of 80 cc Isovue 300 Dose-Length Product (DLP): 479.61 mGy*cm CT Dose Reduction Employed: Automated exposure control(AEC) and iterative recon COMPARISON: CT brain 12/09/2022, CTA head/neck 12/06/2022 RESULT: BRAIN: Evaluation of the individual slices of the CTA demonstrates no evidence of an acute stroke. ASPECT Score = 10 Hemorrhage: No evidence of acute intracranial hemorrhage. ECASS hemorrhagic transformation score: Not Applicable Complete opacification of the right maxillary sinus, a component of which may be reactive/odontogenic secondary to multiple adjacent maxillary periapical lucencies, with prominent bulging of the medial wall into the right nasal cavity, and thickening/sclerosis of the sinus junior compatible with chronic osteitis. NECK: Soft tissues: Within normal limits. Spine: Straightening of the cervical lordosis. Mild spondylosis. Lungs: The imaged lungs are clear. CT ARTERIOGRAM: EXTRACRANIAL CIRCULATION: Aortic arch and branch vessels: Conventional 3-vessel arch branch anatomy. No significant stenosis in the proximal brachiocephalic vessels. Carotid Stenosis: Right Common: No significant stenosis. Right Internal Carotid Plaque: No significant plaque formation. Right Internal Carotid Stenosis (% by NASCET Criteria): 0% Left Common: No significant stenosis. Left Internal Carotid Plaque: No significant plaque formation. Left Internal Carotid Stenosis (% by NASCET Criteria): 0% Cervical Vertebral Arteries: Patency: Bilateral Dominance: Right INTRACRANIAL CIRCULATION: Anterior circulation: Distal ICAs, ACAs and MCAs are normal in caliber. A1 segments are codominant. Posterior circulation: Distal vertebral arteries, basilar trunk and steamship agent are normal in caliber. No vessel cut off, filling defect, significant focal narrowing, or evidence of aneurysm. Opacified dural venous sinuses and major deep and superficial draining veins are patent. Hard Candy Spinner (topogram) images: No additional findings. IMPRESSION: No large vessel occlusion or high-grade stenosis in the head or neck. Arterial blood flow was measured to detect acute large vessel occlusion by computer aided detection software: Not Performed. Curriculum Assistant: DONTAE Transcribe Date/Time: Dec 09 2022 10:34A Dictated by : CHA MCNAMARA MD This examination was interpreted and the report reviewed and electronically signed by: CHA MCNAMARA MD on Dec 09 2022 10:39AM EST [id number] Normal [facility] Comprehensive metabolic 2000 panelon 12-09-2022 Albumin [Mass/Vol] 3.9 g/dL Normal 3.2-5.0 [facility] Comment on above: Order Comment: Speci men Type: BLOOD SPECIMEN Ordering Facility: [facility] Address: [address] [place] [address] Performed By: #### 5 8410-2 #### [facility] CLIA [id number] [address] [place] [address] [place] ALP [Catalytic activity/Vol] 107 U/L Normal 45-117 [facility] Comment on above: Order Comment: Speci men Type: BLOOD SPECIMEN Ordering Facility: [facility] Address: [address] [place] [address] Performed By: #### 5 8410-2 #### [facility] CLIA [id number] [address] [place] [address] [place] ALT [Catalytic activity/Vol] 17 U/L Normal 13-61 [facility] Comment on above: Order Comment: Speci men Type: BLOOD SPECIMEN Ordering Facility: [facility] Address: [address] [place] [address] Result Comment: Resu lts may be falsely depressed after the administration of Sulfasalazine and/or Sulfapyridine. Performed By: #### 5 8410-2 #### [facility] CLIA [id number] [address] [place] [address] [place] Anion gap [Moles/Vol] 11 mmol/L Normal 5-16 [facility] Comment on above: Order Comment: Speci men Type: BLOOD SPECIMEN Ordering Facility: [facility] Address: [address] [place] [address] Performed By: #### 5 8410-2 #### [facility] CLIA [id number] [address] [place] [address] [place] AST [Catalytic activity/Vol] 17 U/L Normal 8-34 [facility] Comment on above: Order Comment: Speci men Type: BLOOD SPECIMEN Ordering Facility: [facility] Address: [address] [place] [address] Result Comment: Resu lts may be falsely depressed after the administration of Sulfasalazine and/or Sulfapyridine. Performed By: #### 5 8410-2 #### [facility] CLIA [id number] [address] [place] [address] [place] Bilirubin [Mass/Vol] 1.1 mg/dL High 0.2-1.0 [facility] Comment on above: Order Comment: Speci men Type: BLOOD SPECIMEN Ordering Facility: [facility] Address: [address] [place] [address] Performed By: #### 5 8410-2 #### [facility] CLIA [id number] [address] [place] [address] [place] Calcium [Mass/Vol] 9.6 mg/dL Normal 8.5-10.5 [facility] Comment on above: Order Comment: Speci men Type: BLOOD SPECIMEN Ordering Facility: [facility] Address: [address] [place] [address] Performed By: #### 5 8410-2 #### [facility] CLIA [id number] [address] [place] [address] [place] Chloride [Moles/Vol] 104 mmol/L Normal 98-107 [facility] Comment on above: Order Comment: Speci men Type: BLOOD SPECIMEN Ordering Facility: [facility] Address: [address] [place] [address] Performed By: #### 5 8410-2 #### [facility] CLIA [id number] [address] [place] [address] [place] CO2 [Moles/Vol] 27 mmol/L Normal 21-32 [facility] Comment on above: Order Comment: Speci men Type: BLOOD SPECIMEN Ordering Facility: [facility] Address: [address] [place] [address] Performed By: #### 5 8410-2 #### [facility] CLIA [id number] [address] [place] [address] [place] Creatinine [Mass/Vol] 1.03 mg/dL Normal 0.50-1.40 [facility] Comment on above: Order Comment: Speci men Type: BLOOD SPECIMEN Ordering Facility: [facility] Address: [address] [place] [address] Result Comment: Bianka ents receiving either N-Acetylcysteine (NAC) or Metamizole prior to venipuncture, may have falsely depressed results. Performed By: #### 5 8410-2 #### [facility] CLIA [id number] [address] [place] [address] [place] Creatinine and Glomerular filtration rate.predicted panel (S/P/Bld) 82 mL/min/1.73m??? Normal >=60 [facility] Comment on above: Order Comment: Fatmata magallanes Type: BLOOD SPECIMEN Ordering Facility: [facility] Address: [address] [place] [address] Result Comment: Rocio mated Glomerular Filtration Rate (eGFR) is calculated using the 2020 CKD-EPI creatinine equation. This equation utilizes serum creatinine, sex, and age as parameters. The creatinine assay has traceable calibration to isotope dilution-mass spectrometry. Refer to KDIGO guidelines for clinical interpretation. In patients with unstable renal function, e.g. those with acute kidney injury, the eGFR may not accurately reflect actual GFR. Performed By: #### 5 8410-2 #### [facility] CLIA [id number] [address] [place] [address] [place] Glucose [Mass/Vol] 201 mg/dL High 70-100 [facility] Comment on above: Order Comment: Fatmata magallanes Type: BLOOD SPECIMEN Ordering Facility: [facility] Address: [address] [place] [address] Result Comment: The [place] Diabetes Association (ADA) provides guidance for cutoff values for fasting glucose and random glucose. The ADA defines fasting as no caloric intake for at least 8 hours. Fasting plasma glucose results between 100 to 125 mg/dL indicate increased risk for diabetes (prediabetes). Fasting plasma glucose results greater than or equal to 126 mg/dL meet the criteria for diagnosis of diabetes. In the absence of unequivocal hyperglycemia, results should be confirmed by repeat testing. In a patient with classic symptoms of hyperglycemia or hyperglycemic crisis, random plasma glucose results greater than or equal to 200 mg/dL meet the criteria for diagnosis of diabetes. Reference: Standards of Medical Care in Diabetes 2016, [place] [employer]. Diabetes Care. 2016.39(Suppl 1). Results may be falsely elevated after the administration of Sulfapyridine. Results may be falsely depressed after the administration of Sulfasalazine. Performed By: #### 5 8410-2 #### [facility] CLIA [id number] [address] [place], [place] [id number] [place] Potassium [Moles/Vol] 3.7 mmol/L Normal 3.5-5.1 [facility] Comment on above: Order Comment: Speci men Type: BLOOD SPECIMEN Ordering Facility: [facility] Address: [address] [place] [address] Performed By: #### 5 8410-2 #### [facility] CLIA [id number] [address] [place] [address] [place] Protein [Mass/Vol] 6.9 g/dL Normal 6.0-8.5 [facility] Comment on above: Order Comment: Speci men Type: BLOOD SPECIMEN Ordering Facility: [facility] Address: [address] [place] [address] Performed By: #### 5 8410-2 #### [facility] CLIA [id number] [address] [place] [address] [place] Sodium [Moles/Vol] 142 mmol/L Normal 136-145 [facility] Comment on above: Order Comment: Speci men Type: BLOOD SPECIMEN Ordering Facility: [facility] Address: [address] [place] [address] Performed By: #### 5 8410-2 #### [facility] CLIA [id number] [address] [place] [address] [place] Urea nitrogen [Mass/Vol] 9 mg/dL Normal 7-26 [facility] Comment on above: Order Comment: Speci men Type: BLOOD SPECIMEN Ordering Facility: [facility] Address: [address] [place] [address] Performed By: #### 5 8410-2 #### [facility] CLIA [id number] [address] [place], [place] [address] [place] ECG COMPLETEon 12-09-2022 ECG COMPLETE Ventricular Rate : 9 0 BPM Atrial Rate : 90 BPM P-R Interval : 142 ms QRS Duration : 82 ms Q-T Interval : 378 ms QTC Calculation(Bazett) : 463 ms Calculated P [place] : 51 degrees Calculated R [place] : 40 degrees Calculated T [place] : 56 degrees Normal sinus rhythm Prolonged QT Abnormal ECG When compared with ECG of 06-DEC-2022 17:22, No significant change was found Confirmed by TIMI TSAI MD ([id number]) on 12/09/2022 4:32:23 PM NAME : DREA COPELAND PID : [id number] : 1960 Gender : Male Race : ORD : [id number] Procedure Date : Dec 09 2022 08:02:26 Edit Date : Dec 09 2022 16:32:23 Diagnosis: Normal sinus rhythm Prolonged QT Abnormal ECG When compared with ECG of 06-DEC-2022 17:22, No significant change was found Confirmed by TIMI TSAI MD ([id number]) on 12/09/2022 4:32:23 PM Test Reason : STAT Location : 0 : ED 10 Overread By : TIMI TSAI MD Edited By : TIMI TSAI MD Referred By : , Acquired by : [facility], [facility] ED NOTEon 12-09-2022 ED NOTE HNO ID: [id number] Author: Noy Harding RN Service: ? Author Type: Registered Nurse Type: ED Notes Filed: 12/09/2022 2:16 PM Note Text: Report to 5M RN [facility] ED NOTE HNO ID: [id number] Author: Alexandra Crawford RN Service: ? Author Type: Registered Nurse Type: ED Notes Filed: 12/09/2022 7:47 AM Note Text: Bed: 10-ED Expected date: Expected time: Means of arrival: Comments: EMS [facility] ED PROV NOTEon 12-09-2022 ED PROV NOTE HNO ID: [id number] Author: Hubert Bustilol MD Service: Emergency Medicine Author Type: Physician Type: ED Provider Notes Filed: 12/09/2022 11:13 AM Note Text: ED Provider Note Patient Name: Drea Copeland : 1960 SERVICE DATE: 12/09/22 History Patient presents with: Limb Weakness: Pt was seen for stroke symptoms. Pt left ama and wants to be seen for R sided weakness d/t not being able to get around. This is a 62-year-old male who presents with right-sided weakness. This been ongoing since and has not resolved. He was here in the ER on . He left AMA. It was recommended that he be admitted at that time but he refused admission. He does apparently have a history of alcohol use. Also history of hypertension. Denies history of prior stroke or TIA. He denies any chest pain or shortness of breath, abdominal pain, head pain. History provided by: Patient and medical records No past medical history on file. No past surgical history on file. No family history on file. Social History Tobacco Use - Smoking status: Not on file - Smokeless tobacco: Not on file Substance and Sexual Activity - Alcohol use: Not on file - Drug use: Not on file - Sexual activity: Not on file ALLERGIES No Known Allergies Review of Systems All other systems reviewed and are negative. Physical Exam Vitals [12/09/22 0753] BP Pulse Temp Temp src Resp SpO2 Weight Height (!) 230/113 (!) 91 36.6 ?C (97.8 ?F) Oral 16 98 % 92.1 kg (203 lb) 1.702 m (5' 7) Physical Exam Vitals and nursing note reviewed. Constitutional: General: He is not in acute distress. Appearance: Normal appearance. He is not ill-appearing, toxic-appearing or diaphoretic. HENT: Head: Normocephalic and atraumatic. Eyes: General: No scleral icterus. Right eye: No discharge. Left eye: No discharge. Extraocular Movements: Extraocular movements intact. Conjunctiva/sclera: Conjunctivae normal. Cardiovascular: Rate and Rhythm: Normal rate and regular rhythm. Heart sounds: Normal heart sounds. Pulmonary: Effort: Pulmonary effort is normal. Breath sounds: Normal breath sounds. Abdominal: Palpations: Abdomen is soft. Tenderness: There is no abdominal tenderness. Musculoskeletal: General: No deformity or signs of injury. Cervical back: Neck supple. Right lower leg: No edema. Left lower leg: No edema. Skin: General: Skin is warm and dry. Neurological: Mental Status: He is alert. Cranial Nerves: Cranial nerve deficit present. Motor: Weakness present. Comments: He has significant weakness on the right side he is able to lift the right arm against gravity but not sustained effort. Able to lift the right leg against gravity again but not sustained effort. There is right lower facial droop, there is no apparent dysarthria or aphasia. Extraocular movements do appear to be intact. Psychiatric: Mood and Affect: Mood normal. ED STROKE DOCUMENTATION (last 48 hours) Stroke Care Path Flowsheet Row Name 12/09/22 1101 Last Known Well Date Patient Last Known Well 12/06/22 -AB Date/Time of Last Known Well Unknown Time Unknown -AB NIHSS NIHSS - Initial or Subsequent Initial -AB NIHSS Initial - LIP ENTRY ONLY !!!!! REMEMBER TO VALIDATE DATE AND TIME !!!!! LOC 0 - alert and responsive -AB LOC Questions 2 - none correct -AB LOC Commands 0 - both correct -AB Best Gaze 0 - normal gaze -AB Visual 0 - no visual loss -AB Facial Palsy 2 - partial paralysis -AB Motor Left Arm 0 - no drift -AB Motor Right Arm 1 - drift but does not hit bed -AB Motor Left Leg 0 - no drift -AB Motor Right Leg 1 - drift but does not hit bed -AB Limb Ataxia 0 - no ataxia (or aphasic, hemiplegic) -AB Sensory 0 - normal -AB Best Language 0 - normal -AB Dysarthria 0 - normal -AB Extinction and Inattention 0 - normal, none detected (or visual loss alone) -AB Initial NIHSS Score 6 -AB User Daugherty (r) = Recorded By, (t) = Taken By, (c) = Cosigned By Initials Name AB Hubert Bustillo MD Diagnostic Testing ED Labs Ordered and Reviewed COMP METABOLIC PANEL - Abnormal; Notable for the following components: Result Value Ref Range Bilirubin, Total 1.1 (*) 0.2 - 1.0 mg/dL Glucose 201 (*) 70 - 100 mg/dL All other components within normal limits MAGNESIUM BLD - Abnormal; Notable for the following components: Magnesium 1.5 (*) 1.6 - 2.6 mg/dL All other components within normal limits HIGH SENSITIVITY TROPONIN I - Normal PROTHROMBIN TIME/PT - Normal ACTIVATED PTT - Normal Narrative: Unfractionated Heparin Therapeutic Ranges: Standard Heparin Nomogram: 53 to 78 seconds (anti-Xa level of 0.3 to 0.7 U/ml) Low Dose/ACS Nomogram: 49 to 67 seconds (anti-Xa level of 0.2 to 0.5 U/ml) Stroke Treatment Nomogram: 49 to 67 seconds (anti-Xa level of 0.2 to 0.5 U/ml) Note: The APTT therapeutic range has been determined for the current lot of laboratory APTT re (more content not included)... Normal [facility] Ethanol SerPl-mCncon 023 Ethanol [Mass/Vol] 0.004 gm/dL Normal <0.010 [facility] Comment on above: Order Comment: Fatmata magallanes Type: BLOOD SPECIMEN Ordering Facility: [facility] Address: [address] [place] [address] Performed By: #### 5 8410-2 #### [facility] CLIA [id number] [address] [place] [address] [place] HIGH SENSITIVITY TROPONIN Io n 12-09-2022 Tropinin I.cardiac panel High sensitivity method 15.1 pg/mL Normal 0.0-54.0 [facility] Comment on above: Order Comment: Fatmata magallanes Type: BLOOD SPECIMEN Ordering Facility: [facility] Address: [address] [place] [address] Result Comment: This assay uses different antibodies than our current assay, and assays, even by the same chief deputy may recognize different regions of the antibody and cannot be used interchangeably. Expect results of this assay to run higher than the previous assay. Performed By: #### 5 8410-2 #### [facility] CLIA [id number] [address] [place] [address] [place] HISTORY PHYSICALon HISTORY PHYSICAL HNO ID: [id number] Author: Dean Mcginnis DO Service: Hospital Medicine Author Type: Physician Type: HANDP Filed: 12/09/2022 6:21 PM Note Text: HISTORY AND PHYSICAL SERVICE DATE: 12/09/2022 SERVICE TIME: 6:00 PM PRIMARY CARE PHYSICIAN: NEO MARTIN Subjective CHIEF COMPLAINT: Right-sided facial droop and weakness HPI: Patient is a 62-year-old male who was brought to the [facility] emergency department earlier today by EMS for further evaluation of right-sided facial droop and weakness. Apparently, he presented to our emergency department earlier this week with similar symptoms. He was also dealing with mental status changes as well at that time. Admission was recommended, but the patient declined and left against medical advice. Unfortunately, outside of his mentation right-sided deficits have not improved, prompting him to return today. Upon arrival to the emergency department the patient was found to be markedly hypertensive with a blood pressure of 230/113. He was also mildly tachycardic. On exam right-sided facial droop and weakness were seen. Routine labs revealed hyperglycemia that was consistent with his known diabetes. High-sensitivity troponin was within normal limits. Blood alcohol level was as well. CT scan of the brain was obtained. No acute intracranial abnormalities were seen. CT angiography of the head/neck was also obtained. No large vessel occlusion and/or stenosis was seen. Patient has been given a full-dose aspirin due to concerns for possible stroke. He has also been given multiple antihypertensives. PAST MEDICAL HISTORY: Type II diabetes mellitus Hypertension Hyperlipidemia Diabetic neuropathy EtOH use/abuse Tobacco abuse PAST SURGICAL HISTORY: Colonoscopy FAMILY HISTORY: Mother: hypertension SOCIAL HISTORY: Current everyday smoker, daily EtOH use ALLERGIES: No Known Allergies REVIEW OF SYSTEMS: Constitutional: no fever/chills/sweats, no fatigue, no weakness, no weight gain/loss HEENT: no vision changes, no hearing loss, no nasal congestion/drainage, no sore throat Cardiovascular: no chest pain, no palpitations, no orthopnea, no leg swelling, no syncope Respiratory: no shortness of breath, no cough, no sputum production, no wheezing, no hemoptysis Gastrointestinal: no abdominal pain, no nausea/vomiting, no diarrhea, no constipation, no bloody stool, no loss of appetite Genitourinary: no dysuria, no hematuria, no retention, no urgency, no penile/vaginal discharge, no vaginal bleeding Musculoskeletal: no joint pain/swelling, no back pain, no muscle aches Skin: no rashes Lymphatic: no enlarged lymph nodes Endocrine: no polyuria, no polydipsia, no temperature intolerance Neurology: admits to right-sided facial droop and weakness, no headache, no dizziness, no numbness, no tingling, no difficulty with speech Psychiatry: no anxiety, no depression, no suicidal ideation MEDICATIONS: Current Facility-Administered Medications Medication Dose Route Frequency iv contrast (radiology procedure) INTRAVENOUS DIRECTED PRN NaCl 0.9% iv flush bag 20 mL INTRAVENOUS PRN sodium chloride 0.9 % (flush) 2-10 mL (BD POSIFLUSH) 2-10 mL INTRAVENOUS DIRECTED PRN And perflutren lipid microspheres 1.1 mg/mL 1.3 mL injection (DEFINITY) 1.3 mL INTRAVENOUS DIRECTED PRN NaCl 0.9% iv infusion 75 mL/hr INTRAVENOUS CONTINUOUS hydrALAZINE 20 mg injection (APRESOLINE) 20 mg INTRAVENOUS ONCE dextrose 40 % 15 g 15 g ORAL PRN Or glucagon 1 mg injection 1 mg INTRAMUSCULAR PRN Or dextrose 10% iv bolus 12.5 g INTRAVENOUS PRN insulin lispro injection (rapid acting) (HumaLOG) SUBCUTANEOUS w MEALS aspirin 81 mg chewable tab(s) 81 mg ORAL DAILY clopidogrel 75 mg tab(s) (PLAVIX) 75 mg ORAL DAILY atorvastatin 40 mg tab(s) (LIPITOR) 40 mg ORAL AT BEDTIME Objective BP 189/105 Pulse 81 Temp (Src) 98.8 (Oral) Resp 18 Ht 5' 7 (1.70m) Wt 173 lb 9.6 oz (78.7kg) SpO2 98% BMI 27.18 kg/(m2). O2 Therapy: Room Air PHYSICAL EXAM: General: alert and oriented x3, resting comfortably Neck: supple, no hepatojugular reflux or jugular venous distention, no carotid bruits Lungs: clear to auscultation bilaterally, no wheezing, rales, or rhonchi Cardiac: regular rate and rhythm, normal S1 and S2, no murmurs, gallops, or rubs Abdomen: soft, nontender, nondistended, bowel sounds present Extremities: no edema, cyanosis, or clubbing Skin: no rashes or breakdown Lymphatic: no cervical or supraclavicular lymphadenopathy Neurologic: right-sided facial droop and weakness, cranial nerves II-XII are grossly intact Psychiatry: normal affect, no hallucinations, no suicidal ideation DATA: Recent Results (from the past 24 hour(s)) COMP METABOLIC PANEL Collection Time: 12/09/22 7:58 AM Result Value Ref Range Protein, Total 6.9 6.0 - 8.5 g/dL Albumin 3.9 3.2 - 5.0 g/dL Calcium, Total 9.6 8.5 - 10.5 mg/dL Luis Alberto (more content not included)... Normal [facility] Lipase SerPl-cCncon 12-10-19 Lipase [Catalytic activity/Vol] 37 U/L Normal 12-60 [facility] Comment on above: Order Comment: Fatmata magallanes Type: BLOOD SPECIMEN Ordering Facility: [facility] Address: [place] [id number] Performed By: #### 5 8410-2 #### [facility] CLIA [id number] [address] [facility] [place] [address] [place] Magnesium SerPl-mCncon 12-09 Magnesium [Mass/Vol] 1.5 mg/dL Low 1.6-2.6 [facility] Comment on above: Order Comment: Fatmata magallanes Type: BLOOD SPECIMEN Ordering Facility: [facility] Address: [place] [place] [id number] Performed By: #### 5 8410-2 #### [facility] CLIA [id number] [address] [place] [place] [id number] [place] PT panel Coag (PPP)on 2022 INR Coag (PPP) [Relative time] 1.2 {INR} Normal 0.9-1.3 [facility] Comment on above: Order Comment: Fatmata magallanes Type: BLOOD SPECIMEN Ordering Facility: [facility] Address: [place] [place] [id number] Result Comment: Kylie min K Antagonist (VKA) Therapeutic Range: INR 2 to 3 (Target INR of 2.5) Note: For patients treated with VKA drugs, such as warfarin, the [place] [employer] 2012 Guideline recommends a therapeutic INR range of 2 to 3 (target INR of 2.5). This recommendation includes high-risk patients with antiphospholipid syndrome with previous arterial or venous thromboembolism, current-generation mechanical or bioprosthetic aortic heart valve replacement. Note: Patients with mechanical aortic valve replacement and additional risk factors for thromboembolic events (atrial fibrillation, previous thromboembolism, LV dysfunction, hypercoagulable conditions) or an older generation mechanical AVR (i.e., ball in-Cage) or any mechanical MVR should have a INR therapeutic range of 2.5 to 3.5 (target INR of 3). Vonnie GH, et al. Chest 2012, 141:7S-47S Giles RA, et al. JACC 2017, 70: 252-289 Performed By: #### 5 8410-2 #### [facility] CLIA [id number] [address] [place] [address] [place] PT Coag (PPP) [Time] 12.6 s Normal 9.7-13.0 [facility] Comment on above: Order Comment: Speci men Type: BLOOD SPECIMEN Ordering Facility: [facility] Address: [address] [place] [address] Performed By: #### 5 8410-2 #### [facility] CLIA [id number] [address] [place] [address] [place] TOX SCREEN ROUT URon 023 Amphetamines Confirm (U) [Mass/Vol] Negative Normal Negative [facility] Comment on above: Order Comment: Speci men Type: BLOOD SPECIMEN Ordering Facility: [facility] Address: [address] [place] [address] Result Comment: Cuto ff threshold at 1000 ng/mL. Performed By: #### 2 4321-2, 5643-2, 4024-6, 3298-7 #### [facility] CLIA [id number] [address] [place] [address] [place] BARBITURATES, URINE Negative Normal Negative [facility] Comment on above: Order Comment: Speci men Type: BLOOD SPECIMEN Ordering Facility: [facility] Address: [address] [place] [address] Result Comment: Cuto ff threshold at 200 ng/mL. Performed By: #### 2 4321-2, 5643-2, 4024-6, 3298-7 #### [facility] CLIA [id number] [address] [place] [address] [place] BENZODIAZEPINES, UR Negative Normal Negative [facility] Comment on above: Order Comment: Speci men Type: BLOOD SPECIMEN Ordering Facility: [facility] Address: [address] [place] [address] Result Comment: Cuto ff threshold at 200 ng/mL. Performed By: #### 2 4321-2, 5643-2, 4024-6, 3298-7 #### [facility] CLIA [id number] [address] [place], [place] [address] [place] Cannabinoids Screen Ql (U) Negative Normal Negative [facility] Comment on above: Order Comment: Speci men Type: BLOOD SPECIMEN Ordering Facility: [facility] Address: [address] [place] [address] Result Comment: Cuto ff threshold at 50 ng/mL. Performed By: #### 2 4321-2, 5643-2, 4024-6, 3298-7 #### [facility] CLIA [id number] [address] [place] [address] [place] Cocaine Ql (U) Negative Normal Negative [facility] Comment on above: Order Comment: Speci men Type: BLOOD SPECIMEN Ordering Facility: [facility] Address: [address] [place] [address] Result Comment: Cuto ff threshold at 300 ng/mL. Performed By: #### 2 4321-2, 5643-2, 4024-6, 3298-7 #### [facility] CLIA [id number] [address] [place] [address] [place] Opiates Screen Ql (U) Negative Normal Negative [facility] Comment on above: Order Comment: Speci men Type: BLOOD SPECIMEN Ordering Facility: [facility] Address: [address] [place] [address] Result Comment: Cuto ff threshold at 300 ng/mL. Performed By: #### 2 4321-2, 5643-2, 4024-6, 3298-7 #### [facility] CLIA [id number] [address] [place] [address] [place] Phencyclidine Ql (U) Negative Normal Negative [facility] Comment on above: Order Comment: Speci men Type: BLOOD SPECIMEN Ordering Facility: [facility] Address: [address] [place] [address] Result Comment: Cuto ff threshold at 25 ng/mL. Performed By: #### 2 4321-2, 5643-2, 4024-6, 3298-7 #### [facility] CLIA [id number] [address] [place] [address] [place] Urinalysis complete panel (U )on 12-09-2022 Bacteria LM.HPF (Urine sed) [#/Area] None Seen Normal None Seen [facility] Comment on above: Order Comment: Speci men Type: BLOOD SPECIMEN Ordering Facility: [facility] Address: [address] [place] [address] Performed By: #### 2 4321-2, 5643-2, 4024-6, 3298-7 #### [facility] CLIA [id number] [address] [place] [address] [place] Bilirubin Ql (U) Negative Normal Negative [facility] Comment on above: Order Comment: Speci men Type: BLOOD SPECIMEN Ordering Facility: [facility] Address: [address] [place] [address] Performed By: #### 2 4321-2, 5643-2, 4024-6, 3298-7 #### [facility] CLIA [id number] [address] [place] [address] [place] Clarity (Unsp spec) Clear Normal Clear [facility] Comment on above: Order Comment: Speci men Type: BLOOD SPECIMEN Ordering Facility: [facility] Address: [address] [place] [address] Performed By: #### 2 4321-2, 5643-2, 4024-6, 3298-7 #### [facility] CLIA [id number] [address] [place] [address] [place] Color (U) Yellow Normal Yellow [facility] Comment on above: Order Comment: Speci men Type: BLOOD SPECIMEN Ordering Facility: [facility] Address: [address] [place] [address] Performed By: #### 2 4321-2, 5643-2, 4024-6, 3298-7 #### [facility] CLIA [id number] [address] [place] [address] [place] Epithelial cells LM.HPF (Urine sed) [#/Area] Few Normal [facility] Comment on above: Order Comment: Speci men Type: BLOOD SPECIMEN Ordering Facility: [facility] Address: [address] [place] [address] Performed By: #### 2 4321-2, 5643-2, 4024-6, 3297 #### [facility] CLIA [id number] [address] [place], [place] [address] [facility] [place] Glucose Test strip (U) [Mass/Vol] 1+ Abnormal Negative [facility] Comment on above: Order Comment: Speci men Type: BLOOD SPECIMEN Ordering Facility: [facility] Address: [address] [place] [address] Performed By: #### 2 4321-2, 5643-2, 4024-6, 3297 #### [facility] CLIA [id number] [address] [place], [place] [address] [place] Hemoglobin Ql (U) 2+ Abnormal Negative [facility] Comment on above: Order Comment: Speci men Type: BLOOD SPECIMEN Ordering Facility: [facility] Address: [address] [place] [address] Performed By: #### 2 4321-2, 5643-2, 4024-6, 3297 #### [facility] CLIA [id number] [address] [place], [place] [address] [place] Ketones Ql (U) 1+ Abnormal Negative [facility] Comment on above: Order Comment: Speci men Type: BLOOD SPECIMEN Ordering Facility: [facility] Address: [address] [place] [address] Performed By: #### 2 4321-2, 5643-2, 4024-6, 7 #### [facility] CLIA [id number] [address] [place], [place] [address] [facility] [place] Leukocyte esterase Test strip Ql (U) Negative Normal Negative [facility] Comment on above: Order Comment: Speci men Type: BLOOD SPECIMEN Ordering Facility: [facility] Address: [address] [place] [address] Performed By: #### 2 4321-2, 5643-2, 4024-6, 329-7 #### [facility] CLIA [id number] [address] [place] [address] [place] Nitrite Ql (U) Negative Normal Negative [facility] Comment on above: Order Comment: Speci men Type: BLOOD SPECIMEN Ordering Facility: [facility] Address: [address] [place] [address] Performed By: #### 2 4321-2, 5643-2, 4024-6, 329-7 #### [facility] CLIA [id number] [address] [place], [place] [address] [place] pH (U) 5.0 [pH] Normal 5.0-8.0 [facility] Comment on above: Order Comment: Speci men Type: BLOOD SPECIMEN Ordering Facility: [facility] Address: [address] [place] [address] Performed By: #### 2 4321-2, 5643-2, 402-6, 3367 #### [facility] CLIA [id number] [address] [place] [address] [place] Protein (U) [Mass/Vol] 3+ Abnormal Negative [facility] Comment on above: Order Comment: Speci men Type: BLOOD SPECIMEN Ordering Facility: [facility] Address: [address] [place] [address] Performed By: #### 2 4321-2, 5643-2, 4024-6, 4877 #### [facility] CLIA [id number] [address] [place], [place] [address] [place] RBC LM.HPF (Urine sed) [#/Area] 3-5 /HPF Abnormal 0-3 /HPF [facility] Comment on above: Order Comment: Speci men Type: BLOOD SPECIMEN Ordering Facility: [facility] Address: [address] [place] [address] Performed By: #### 2 4321-2, 5643-2, 4024-6, 329-7 #### [facility] CLIA [id number] [address] [place], [place] [address] [place] Specific gravity (U) [Rel density] >1.030 High 1.005-1.03 0 [facility] Comment on above: Order Comment: Speci men Type: BLOOD SPECIMEN Ordering Facility: [facility] Address: [address] [place] [address] Performed By: #### 2 4321-2, 5643-2, 4024-6, 3298-7 #### [facility] CLIA [id number] [address] [place] [address] [place] Urobilinogen Ql (U) Negative Normal Negative [facility] Comment on above: Order Comment: Speci men Type: BLOOD SPECIMEN Ordering Facility: [facility] Address: [address] [place] [address] Performed By: #### 2 4321-2, 5643-2, 4024-6, 3298-7 #### [facility] CLIA [id number] [address] [place] [address] [place] WBC LM.HPF (Urine sed) [#/Area] 0-5 /HPF Normal 0-5 /HPF [facility] Comment on above: Order Comment: Speci men Type: BLOOD SPECIMEN Ordering Facility: [facility] Address: [address] [place] [address] Performed By: #### 2 4321-2, 5643-2, 4024-6, 3298-7 #### [facility] CLIA [id number] [address] [place] [address] [place] XR CHEST 1V FRONTAL PORTon 1 XR CHEST 1V FRONTAL PORT * * *Final Report* * * DATE OF EXAM: Dec 09 2022 8:58AM [id number] [id number] - XR CHEST 1V FRONTAL PORT / PROCEDURE REASON: Mental status change * * * * Physician Interpretation * * * * EXAMINATION: CHEST RADIOGRAPH (PORTABLE SINGLE VIEW AP) Exam Date/Time: 12/09/2022 8:58 AM CLINICAL HISTORY: Mental status change MQ: XCPR_5 Comparison: None RESULT: Lines, tubes, and devices: Overlying EKG monitoring leads. Lungs and pleura: Patient rotation. No vascular congestion, focal consolidation, large pleural effusion, or visible pneumothorax. Cardiomediastinal silhouette: Normal cardiomediastinal silhouette. Other: No acute bony abnormalities. IMPRESSION: No acute radiographic process. Dictated by Angular Developer: Brandon Ortiz MD I, Jenna Knox MD, have supervised the procedure and/or image review, and agree with the above interpretation and report. Curriculum Assistant: PSCB Transcribe Date/Time: Dec 09 2022 9:04A Dictated by : BRANDON ORTIZ MD This examination was interpreted and the report reviewed and electronically signed by: JENNA KNOX MD on Dec 09 2022 9:19AM EST [id number] Normal [facility] aPTT PPPon 12-09-2022 aPTT Coag (PPP) [Time] 30.8 s Normal 23.0-32.4 [facility] Comment on above: Order Comment: Fatmata magallanes Type: BLOOD SPECIMEN Ordering Facility: [facility] Address: [address] [place] [address] Performed By: #### 5 8410-2 #### [facility] CLIA [id number] [address] ED NOTEon 12-07-2022 ED NOTE HNO ID: [id number] Author: Ember Alvarado RN Service: ? Author Type: Registered Nurse Type: ED Notes Filed: 12/07/2022 1:31 AM Note Text: Pts spouse re-educated on risks if patient was to leave, Physician discussed and confirmed with patient that if she was to leave with the patient that they would have resources, assistance from family, and follow up with his PCP first thing in the morning. Pts spouse made the decision to sign pt out AMA. Pt was alert to self at the time of discharge, pt was able to ambulate with minimal assistance from , pt was not experiencing any symptoms of withdraw, SOB, chest pain, headache, and denied any sensory deficits. Normal [facility] APAP SerPl-mCncon 12-06-2022 Acetaminophen [Mass/Vol] ug/mL Low 12-31 [facility] Comment on above: Order Comment: Fatmata magallanes Type: BLOOD SPECIMEN Ordering Facility: [facility] Address: [address] [place] [id number] Result Comment: Toxi c > 50 ug/mL 4 hours post ingestion The Aissatou Trejo nomogram can be used to estimate the probability of hepatotoxicity via the relationship of plasma acetaminophen concentration to the post ingestion interval. (Tor. Pediatrics. 1975. 55:871 to 876 and Aissatou et al. Arch Manager Behavior Med. 1981. 141:380 to 385). Reference ranges and high/low indicator flags are provided as general guidelines only. The treating physician must determine appropriate target levels/dosing based on the specific clinical situation. Performed By: #### 2 4321-2, 5643-2, 4024-6, 3298-7 #### [facility] CLIA [id number] [address] [place], [place] [address] [place] Basic metabolic 2000 panelon 12-06-2022 Anion gap [Moles/Vol] 10 mmol/L Normal 5-16 [facility] Comment on above: Order Comment: Fatmata magallanes Type: BLOOD SPECIMEN Ordering Facility: [facility] Address: [address] [place] [address] Performed By: #### 2 4321-2, 5643-2, 4024-6, 3298-7 #### [facility] CLIA [id number] [address] [place], [place] [address] [place] Calcium [Mass/Vol] 9.7 mg/dL Normal 8.5-10.5 [facility] Comment on above: Order Comment: Fatmata magallanes Type: BLOOD SPECIMEN Ordering Facility: [facility] Address: [address] [facility] [place] [address] Performed By: #### 2 4321-2, 5643-2, 4024-6, 3298-7 #### [facility] CLIA [id number] [address] [place], [place] [address] [place] Chloride [Moles/Vol] 103 mmol/L Normal 98-107 [facility] Comment on above: Order Comment: Felixi sona Type: BLOOD SPECIMEN Ordering Facility: [facility] Address: [address] [place] [address] Performed By: #### 2 4321-2, 5643-2, 4024-6, 3298-7 #### [facility] CLIA [id number] [address] [place] [address] [place] CO2 [Moles/Vol] 25 mmol/L Normal 21-32 [facility] Comment on above: Order Comment: Speci men Type: BLOOD SPECIMEN Ordering Facility: [facility] Address: [address] [place] [address] Performed By: #### 2 4321-2, 5643-2, 4024-6, 329-7 #### [facility] CLIA [id number] [address] [place] [address] [place] Creatinine [Mass/Vol] 1.08 mg/dL Normal 0.50-1.40 [facility] Comment on above: Order Comment: Speci men Type: BLOOD SPECIMEN Ordering Facility: [facility] Address: [address] [place] [address] Result Comment: Bianka ents receiving either N-Acetylcysteine (NAC) or Metamizole prior to venipuncture, may have falsely depressed results. Performed By: #### 2 4321-2, 5643-2, 4024-6, 329-7 #### [facility] CLIA [id number] [address] [place] [address] Creatinine and Glomerular filtration rate.predicted panel (S/P/Bld) 78 mL/min/1.73m??? Normal >=60 [facility] Comment on above: Order Comment: Speci sona Type: BLOOD SPECIMEN Ordering Facility: [facility] Address: [address] [place] [address] Result Comment: Rocio mated Glomerular Filtration Rate (eGFR) is calculated using the 2020 CKD-EPI creatinine equation. This equation utilizes serum creatinine, sex, and age as parameters. The creatinine assay has traceable calibration to isotope dilution-mass spectrometry. Refer to KDIGO guidelines for clinical interpretation. In patients with unstable renal function, e.g. those with acute kidney injury, the eGFR may not accurately reflect actual GFR. Performed By: #### 2 4321-2, 5643-2, 4024-6, 329-7 #### [facility] CLIA [id number] [address] [place] [address] [place] Glucose [Mass/Vol] 267 mg/dL High 70-100 [facility] Comment on above: Order Comment: Fatmata magallanes Type: BLOOD SPECIMEN Ordering Facility: [facility] Address: [address] [place] [address] Result Comment: The [place] [employer] Association (ADA) provides guidance for cutoff values for fasting glucose and random glucose. The ADA defines fasting as no caloric intake for at least 8 hours. Fasting plasma glucose results between 100 to 125 mg/dL indicate increased risk for diabetes (prediabetes). Fasting plasma glucose results greater than or equal to 126 mg/dL meet the criteria for diagnosis of diabetes. In the absence of unequivocal hyperglycemia, results should be confirmed by repeat testing. In a patient with classic symptoms of hyperglycemia or hyperglycemic crisis, random plasma glucose results greater than or equal to 200 mg/dL meet the criteria for diagnosis of diabetes. Reference: Standards of Medical Care in Diabetes 2016, [place] [employer]. Diabetes Care. 2016.39(Suppl 1). Results may be falsely elevated after the administration of Sulfapyridine. Results may be falsely depressed after the administration of Sulfasalazine. Performed By: #### 2 4321-2, 5643-2, 4024-6, 3298-7 #### [facility] CLIA [id number] [address] [place] [address] [place] Potassium [Moles/Vol] Normal [facility] Comment on above: Order Comment: Fatmata magallanes Type: BLOOD SPECIMEN Ordering Facility: [facility] Address: [address] [place] [address] Result Comment: Unab le to assay due to interference from hemolysis. Suggest reorder as clinically indicated. Performed By: #### 2 4321-2, 5643-2, 4024-6, 3298-7 #### [facility] CLIA [id number] [address] [place], [place] [address] [place] Sodium [Moles/Vol] 138 mmol/L Normal 136-145 [facility] Comment on above: Order Comment: Fatmata magallanes Type: BLOOD SPECIMEN Ordering Facility: [facility] Address: [address] [place], [place] [address] [id number] Performed By: #### 2 4321-2, 5643-2, 4024-6, 3298-7 #### [facility] CLIA [id number] [address] [place], [place] [address] [place] Urea nitrogen [Mass/Vol] 15 mg/dL Normal 7-26 [facility] Comment on above: Order Comment: Speci men Type: BLOOD SPECIMEN Ordering Facility: [facility] Address: [address] [place] [address] Performed By: #### 2 4321-2, 5643-2, 4024-6, 3298-7 #### [facility] CLIA [id number] [address] [place], [place] [address] [facility] [place] CBC panel Auto (Bld)on 12-06 Erythrocyte distribution width (RBC) [Ratio] 11.8 % Normal 11.5-15.0 [facility] Comment on above: Order Comment: Speci men Type: BLOOD SPECIMEN Ordering Facility: [facility] Address: [address] [place] [id number] Performed By: #### 5 8410-2 #### [facility] CLIA [id number] [address] [place] [address] [place] Hematocrit (Bld) [Volume fraction] 50.8 % Normal 39.0-51.0 [facility] Comment on above: Order Comment: Speci men Type: BLOOD SPECIMEN Ordering Facility: [facility] Address: [address] [place] [address] Performed By: #### 5 8410-2 #### [facility] CLIA [id number] [address] [place], [place] [address] [place] Hemoglobin (Bld) [Mass/Vol] 17.0 g/dL Normal 13.0-17.0 [facility] Comment on above: Order Comment: Speci men Type: BLOOD SPECIMEN Ordering Facility: [facility] Address: [address] [place] [address] Performed By: #### 5 8410-2 #### [facility] CLIA [id number] [address] [place] [address] [place] MCH (RBC) [Entitic mass] 28.5 pg Normal 26.0-34.0 [facility] Comment on above: Order Comment: Speci men Type: BLOOD SPECIMEN Ordering Facility: [facility] Address: [address] [place] [address] Performed By: #### 5 8410-2 #### [facility] CLIA [id number] [address] [place] [address] [place] MCHC (RBC) [Mass/Vol] 33.5 g/dL Normal 30.5-36.0 [facility] Comment on above: Order Comment: Speci men Type: BLOOD SPECIMEN Ordering Facility: [facility] Address: [address] [place] [address] Performed By: #### 5 8410-2 #### [facility] CLIA [id number] [address] [place] [address] [place] MCV (RBC) [Entitic vol] 85.2 fL Normal 80.0-100.0 [facility] Comment on above: Order Comment: Speci men Type: BLOOD SPECIMEN Ordering Facility: [facility] Address: [address] [place] [address] Performed By: #### 5 8410-2 #### [facility] CLIA [id number] [address] [place] [address] [place] Nucleated RBC (Bld) [#/Vol] 10*3/uL Normal <0.01 [facility] Comment on above: Order Comment: Speci men Type: BLOOD SPECIMEN Ordering Facility: [facility] Address: [address] [place] [address] Performed By: #### 5 8410-2 #### [facility] CLIA [id number] [address] [place] [address] [place] Platelet mean volume (Bld) [Entitic vol] 11.1 fL Normal 9.0-12.7 [facility] Comment on above: Order Comment: Speci men Type: BLOOD SPECIMEN Ordering Facility: [facility] Address: [address] [place] [address] Performed By: #### 5 8410-2 #### [facility] CLIA [id number] [address] [place], [place] [address] [place] Platelets (Bld) [#/Vol] 204 10*3/uL Normal 150-400 [facility] Comment on above: Order Comment: Speci men Type: BLOOD SPECIMEN Ordering Facility: [facility] Address: [address] [place] [address] Performed By: #### 5 8410-2 #### [facility] CLIA [id number] [address] [place] [address] [place] RBC (Bld) [#/Vol] 5.96 10*6/uL Normal 4.20-6.00 [facility] Comment on above: Order Comment: Speci men Type: BLOOD SPECIMEN Ordering Facility: [facility] Address: [address] [place] [address] Performed By: #### 5 8410-2 #### [facility] CLIA [id number] [address] [place] [address] [place] WBC (Bld) [#/Vol] 6.65 10*3/uL Normal 3.70-11.00 [facility] Comment on above: Order Comment: Speci men Type: BLOOD SPECIMEN Ordering Facility: [facility] Address: [address] [place] [address] Performed By: #### 5 8410-2 #### [facility] CLIA [id number] [address] [place], [place] [address] [facility] [place] CT BRAIN ATTACK WO IVCONon 1 CT BRAIN ATTACK WO IVCON * * *Final Report* * * DATE OF EXAM: Dec 06 2022 5:15PM [facility] 0502 - CT BRAIN ATTACK WO IVCON / PROCEDURE REASON: Focal neuro deficit, new, fixed, or worsening, 4.5 to 24 hours, NIHSS 6 or great * * * * Physician Interpretation * * * * EXAMINATION: CT BRAIN ATTACK WO IVCON CLINICAL HISTORY: Last known well 3 hours earlier, with mental status change and disorientation. NIH 1. Brain attack. TECHNIQUE: Routine CT of the brain without IV contrast. MQ: CTBA_4 CT Radiation dose: Integrated CT Dose-Length Product (DLP) for this visit = 770.97 mGy*cm CT Dose Reduction Employed: Automated exposure control(AEC) and iterative recon COMPARISON: None. RESULT: Acute ischemic change: None. ASPECT Score = 10 Hemorrhage: No evidence of acute intracranial hemorrhage. ECASS hemorrhagic transformation score: Not Applicable Mass Lesion / Mass Effect: There is no evidence of an intracranial mass or extraaxial fluid collection. No significant mass effect. Chronic change: Extensive confluent foci of low attenuation are present in the white matter which is nonspecific but likely represents extensive microvascular ischemia. 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 The brain parenchyma is otherwise within normal limits for age. Ventricles: Normal caliber and morphology. Other: The visualized calvarium, skull base, orbits and extracranial soft tissues are normal. Hard Candy Spinner (topogram) images: No additional findings. IMPRESSION: 1. NO ACUTE INTRACRANIAL PROCESS 2. SEVERE NONSPECIFIC WHITE MATTER CHANGE CRITICAL TEST/RESULTS: Notification initiated at 1720. Communicated with Dr Araiza on 12/06/2022 at 1720 . CR_1 Curriculum Assistant: DONTAE Transcribe Date/Time: Dec 06 2022 5:18P Dictated by : LENORA DAUGHERTY MD This examination was interpreted and the report reviewed and electronically signed by: LENORA DAUGHERTY MD on Dec 06 2022 5:22PM EST [id number] CRITICAL!! Invalid Interpretation Code [facility] CTA HEAD W IVCONon 3 CTA HEAD W IVCON * * *Final Report* * * DATE OF EXAM: Dec 06 2022 8:22PM [facility] 0022 - CTA HEAD W IVCON / PROCEDURE REASON: Headache, sudden, severe * * * * Physician Interpretation * * * * EXAMINATION: CTA NECK W IVCON, CTA HEAD W IVCON HISTORY: Transient ischemic attack facial droop, slurred speech and unsteady gait, resolved TECHNIQUE: Spiral high resolution axial images were obtained through the head, neck and superior mediastinum following bolus administration of intravenous contrast for CT angiography. 3D maximum intensity projection images were created, reviewed and archived . MQ: CTAHN_4 Contrast: 80 mL Isovue [address] Radiation dose: Integrated Dose-Length Product (DLP) for this visit = 450.52 mGy*cm. CT Dose Reduction Employed: Automated exposure control(AEC) and iterative recon COMPARISON: CT brain 12/06/2022 RESULT: BRAIN: Evaluation of the individual slices of the CTA demonstrates no evidence of an acute stroke. ASPECT Score = 10 Hemorrhage: No evidence of acute intracranial hemorrhage. ECASS hemorrhagic transformation score: Not Applicable NECK: Soft tissues: Complete opacification of the right maxillary sinus with extension of mucosal thickening into the right middle meatus, suggesting a sinonasal polyp. Partial opacification of the right nasal cavity. The remainder of the paranasal sinuses are otherwise grossly clear. 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 Periodontal disease with small periapical lucencies extending into the maxillary sinus floor along the bilateral posterior maxillary molars. The soft tissue planes are maintained throughout. No evidence of a soft tissue mass in the neck or superior mediastinum. No significant lymphadenopathy is seen. Spine: There is reversal of the cervical lordosis with apex at C5. Multilevel moderate degenerative changes are present. Lung apices: The visualized lung apices are clear. CT ARTERIOGRAM: Extracranial Circulation: Aortic Arch: There is a normal branching pattern from the aortic arch. There is no significant stenosis in the proximal brachiocephalic vessels. Carotid Stenosis: Right Common: No significant stenosis. Right Internal Carotid Plaque: No significant plaque formation. Right Internal Carotid Stenosis (% by NASCET Criteria): 0% Left Common: No significant stenosis. Left Internal Carotid Plaque: No significant plaque formation. Left Internal Carotid Stenosis (% by NASCET Criteria): 0% Cervical Vertebral Arteries: Patency: Bilateral Dominance: Codominant Intracranial Circulation: Anterior Circulation: Bilateral intracranial ICAs are patent without significant stenosis. There are codominant A1 segments with a small patent anterior communicating artery. The proximal KARY branches are patent without significant stenosis. Focal moderate stenosis of the distal right A2 segment. The proximal bilateral MCA branches are patent without significant stenoses or occlusion. Vertebrobasilar Circulation: Bilateral intradural vertebral arteries and basilar artery are patent and normal in caliber. origin of the right ASSIST[employer] LIVING CARE MANAGER with hypoplastic right P1 segment. Patent left posterior communicating artery. The proximal bilateral steamship agent are patent and normal in caliber. Proximal bilateral SCA and PICA are patent. Dural venous sinuses, major deep and superficial draining veins are patent. Hard Candy Spinner (topogram) images: Unremarkable. IMPRESSION: No proximal large vessel occlusion, high-grade stenosis or aneurysm intracranially. Focal moderate stenosis of the distal right A2 KARY segment. Patent extracranial arterial vasculature without significant stenosis. Marked inflammatory paranasal sinus disease most pronounced in the right maxillary sinus extending into the right middle meatus, suggesting sinonasal polyp. Arterial blood flow was measured to detect acute large vessel occlusion by computer aided detection software: Not Performed. Concordance between software and imaging review: Not Applicable. Curriculum Assistant: PSCB Transcribe Date/Time: Dec 06 2022 8:37P Dictated by : WM REYEZ MD This examination was interpreted and the report reviewed and electronically signed by: WM REYEZ MD on Dec 06 2022 8:45PM EST [id number] [facility] CTA NECK W IVCONon CTA NECK W IVCON * * *Final Report* * * DATE OF EXAM: Dec 06 2022 8:22PM [facility] 0024 - CTA NECK W IVCON / PROCEDURE REASON: Transient ischemic attack (TIA) * * * * Physician Interpretation * * * * EXAMINATION: CTA NECK W IVCON, CTA HEAD W IVCON HISTORY: Transient ischemic attack facial droop, slurred speech and unsteady gait, resolved TECHNIQUE: Spiral high resolution axial images were obtained through the head, neck and superior mediastinum following bolus administration of intravenous contrast for CT angiography. 3D maximum intensity projection images were created, reviewed and archived . MQ: CTAHN_4 Contrast: 80 mL Isovue [address] Radiation dose: Integrated Dose-Length Product (DLP) for this visit = 450.52 mGy*cm. CT Dose Reduction Employed: Automated exposure control(AEC) and iterative recon COMPARISON: CT brain 12/06/2022 RESULT: BRAIN: Evaluation of the individual slices of the CTA demonstrates no evidence of an acute stroke. ASPECT Score = 10 Hemorrhage: No evidence of acute intracranial hemorrhage. ECASS hemorrhagic transformation score: Not Applicable NECK: Soft tissues: Complete opacification of the right maxillary sinus with extension of mucosal thickening into the right middle meatus, suggesting a sinonasal polyp. Partial opacification of the right nasal cavity. The remainder of the paranasal sinuses are otherwise grossly clear. 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 Periodontal disease with small periapical lucencies extending into the maxillary sinus floor along the bilateral posterior maxillary molars. The soft tissue planes are maintained throughout. No evidence of a soft tissue mass in the neck or superior mediastinum. No significant lymphadenopathy is seen. Spine: There is reversal of the cervical lordosis with apex at C5. Multilevel moderate degenerative changes are present. Lung apices: The visualized lung apices are clear. CT ARTERIOGRAM: Extracranial Circulation: Aortic Arch: There is a normal branching pattern from the aortic arch. There is no significant stenosis in the proximal brachiocephalic vessels. Carotid Stenosis: Right Common: No significant stenosis. Right Internal Carotid Plaque: No significant plaque formation. Right Internal Carotid Stenosis (% by NASCET Criteria): 0% Left Common: No significant stenosis. Left Internal Carotid Plaque: No significant plaque formation. Left Internal Carotid Stenosis (% by NASCET Criteria): 0% Cervical Vertebral Arteries: Patency: Bilateral Dominance: Codominant Intracranial Circulation: Anterior Circulation: Bilateral intracranial ICAs are patent without significant stenosis. There are codominant A1 segments with a small patent anterior communicating artery. The proximal KARY branches are patent without significant stenosis. Focal moderate stenosis of the distal right A2 segment. The proximal bilateral MCA branches are patent without significant stenoses or occlusion. Vertebrobasilar Circulation: Bilateral intradural vertebral arteries and basilar artery are patent and normal in caliber. origin of the right ASSISTED LIVING CARE MANAGER with hypoplastic right P1 segment. Patent left posterior communicating artery. The proximal bilateral steamship agent are patent and normal in caliber. Proximal bilateral SCA and PICA are patent. Dural venous sinuses, major deep and superficial draining veins are patent. Hard Candy Spinner (topogram) images: Unremarkable. IMPRESSION: No proximal large vessel occlusion, high-grade stenosis or aneurysm intracranially. Focal moderate stenosis of the distal right A2 KARY segment. Patent extracranial arterial vasculature without significant stenosis. Marked inflammatory paranasal sinus disease most pronounced in the right maxillary sinus extending into the right middle meatus, suggesting sinonasal polyp. Arterial blood flow was measured to detect acute large vessel occlusion by computer aided detection software: Not Performed. Concordance between software and imaging review: Not Applicable. Curriculum Assistant: DONTAE Transcribe Date/Time: Dec 06 2022 8:37P Dictated by : WM REEYZ MD This examination was interpreted and the report reviewed and electronically signed by: WM REYEZ MD on Dec 06 2022 8:45PM EST [id number] [facility] ECG COMPLETEon 12-06-2022 ECG COMPLETE Ventricular Rate : 1 02 BPM Atrial Rate : 102 BPM P-R Interval : 150 ms QRS Duration : 78 ms Q-T Interval : 360 ms QTC Calculation(Bazett) : 469 ms Calculated P [place] : 52 degrees Calculated R [place] : 44 degrees Calculated T [place] : 60 degrees Sinus tachycardia Prolonged QT Abnormal ECG No previous ECGs available Confirmed by TIMI TSAI MD ([id number]) on 12/07/2022 5:50:42 PM NAME : DREA COPELAND PID : [id number] : 1960 Gender : Male Race : ORD : [id number] Procedure Date : Dec 06 2022 17:22:37 Edit Date : Dec 07 2022 17:50:45 Diagnosis: Sinus tachycardia Prolonged QT Abnormal ECG No previous ECGs available Confirmed by TIMI TSAI MD ([id number]) on 12/07/2022 5:50:42 PM Test Reason : STAT Location : 0 : ED [id number] Overread By : TIMI TSAI MD Edited By : TIMI TSAI MD Referred By : , Acquired by : [facility] ED NOTEon 12-06-2022 ED NOTE HNO ID: [id number] Author: Ember Alvarado RN Service: ? Author Type: Registered Nurse Type: ED Notes Filed: 12/06/2022 6:06 PM Note Text: Pt requesting to leave, LIP discussed patients risks with both patient and . [facility] ED PROV NOTEon 12-06-2022 ED PROV NOTE HNO ID: [id number] Author: Henrry Montalvo MD Service: Emergency Medicine Author Type: Physician Type: ED Provider Notes Filed: 12/06/2022 11:15 PM Note Text: ED CONTINUATION OF CARE NOTE Code Status: Full Code Assumed care from: Dr. Araiza Presentation / Findings / Interventions / Plan / Items to Follow Up: For full HPI please refer to main ED note however in short patient is a 16-year-old male presented to the emergency department for concern of altered mental status versus stroke. Stroke alert was called and CT Noncon was ordered. Patient sent to mo pending multiple reevaluations and laboratory evaluation. On multiple reevaluations patient continued to have altered mental status, perseveration, concern for potential confabulation. Alcohol level was near normal. Concern for potential Warnicke encephalopathy. Patient placed on CIWA protocol and given thiamine, folic acid. CTAs were obtained after further information from family was obtained with last known well this morning concern for potential LVO. CTA showed no signs of LVO or dissection or significant stenosis of major vessels. Patient continues to be alert to self as well as significant confusion. And without capacity to make medical decisions. At this time is that the patient would benefit from admission for further evaluation for Warnicke encephalopathy versus CVA. Multiple very lengthy conversations with both , uncle, patient or head. Patient continued to be confused and very perseverative not able to answer questions appropriately. stated she is uncertain if the patient will stay however she would like him to have further work-up and intermittently stating that she would like to sign him out AMA. At this time patient was admitted to Dr. Banks for further evaluation given concern of signs of expressive aphasia versus Warnicke encephalopathy. He was discussed with Dr. Banks that is intermittently wanted to sign patient out AMA and that if she does so she will be alerted. Addendum: Of note after admission and after Dr. Banks spoke with the patient the signed the patient out AMA. It was discussed thoroughly on multiple different occasions the risk and benefits including worsening morbidity, mortality, , significant weakness or numbness if he was to have a stroke, worsening encephalopathy that may become permanent. She states she demonstrated understanding's of potentially needing surgery as it would otherwise not be needed if he was to stay for evaluation versus worsening condition including morbidity or . Patient signed out AMA. Clinical Impressions as of 12/06/222238 Altered mental status, unspecified altered mental status type SIGNATURE: Henrry Montalvo MD PATIENT NAME: Drea Copeland DATE: December 06, 2022 TIME: 8:53 PM PAGER/CONTACT #: HENRRY MONTALVO 12/06/222239 HENRRY MONTALVO 12/06/22 231 [facility] ED PROV NOTE HNO ID: [id number] Author: Cheikh Araiza, DO Service: ? Author Type: Donation Coordinator Type: ED Provider Notes Filed: 12/07/2022 9:03 AM Note Text: ED Provider Note Patient Name: Drea Copeland : 1960 SERVICE DATE: 12/06/22 History Patient presents with: Potential Stroke Symptoms: Patient to with c/o facial droop, slurred speech and unsteady gait that started around 1415 today, upon arrival symptoms have resolved. NIH 0 Patient is a 62-year-old male with past medical history of diabetes who presents to the emergency department as a prehospital stroke alert. Patient's last known well was suspected to be 2:15 PM. Patient was witnessed by somebody who cuts his grass. Started to have slurring of his words and not making sense when talking. He was not able to identify some objects per EMS. Patient denies any history of strokes. He denies having headache or vision changes. He denies unilateral weakness or loss of sensation. He denies falls, head trauma. He is not on any blood thinning medications. Since arrival to the ER patient's speech has otherwise been improving. EMS states that he was having a difficult time standing to even walk. No past medical history on file. No past surgical history on file. No family history on file. Social History Tobacco Use Smoking status: Not on file Smokeless tobacco: Not on file Substance and Sexual Activity Alcohol use: Not on file Drug use: Not on file Sexual activity: Not on file ALLERGIES No Known Allergies Review of Systems Physical Exam Vitals BP Pulse Temp Temp src Resp SpO2 Weight Height 12/06/22 1700 12/06/22 1700 12/06/22 1729 12/06/22 1729 12/06/22 1700 12/06/22 1700 12/06/22 1722 12/06/22 1722 (!) 238/115 (!) 107 36.7 ?C (98 ?F) Oral 20 97 % 92.1 kg (203 lb) 1.702 m (5' 7) Physical Exam Vitals and nursing note reviewed. Constitutional: General: He is not in acute distress. Appearance: Normal appearance. He is not ill-appearing. HENT: Head: Normocephalic and atraumatic. Mouth/Throat: Mouth: Mucous membranes are moist. Eyes: Extraocular Movements: Extraocular movements intact. Pupils: Pupils are equal, round, and reactive to light. Cardiovascular: Rate and Rhythm: Normal rate and regular rhythm. Heart sounds: No murmur heard. Pulmonary: Effort: Pulmonary effort is normal. Breath sounds: Normal breath sounds. Abdominal: General: There is no distension. Palpations: Abdomen is soft. Tenderness: There is no abdominal tenderness. Musculoskeletal: General: Normal range of motion. Cervical back: Normal range of motion and neck supple. Skin: General: Skin is warm and dry. Capillary Refill: Capillary refill takes less than 2 seconds. Findings: No rash. Neurological: Mental Status: He is alert. Mental status is at baseline. Cranial Nerves: No cranial nerve deficit. Sensory: No sensory deficit. Comments: NIH score of 1. He was not able to answer question about date. He did not know the month or year. Otherwise 5 out of 5 muscle strength throughout. Diagnostic Testing ED Labs Ordered and Reviewed CBC - Normal BASIC METABOLIC PNL ACTIVATED PTT PROTHROMBIN TIME/PT GLUCOSE - ED(POC) HIGH SENSITIVITY TROPONIN I ALCOHOL/ETHANOL BLD Procedures ED Course / Clinical Impression Clinical Impressions as of 12/07/22 0858 Altered mental status, unspecified altered mental status type MDM / Disposition / Plan Patient presents to the emergency department as a prehospital stroke alert. Patient having significant aphasia per EMS but this has improved. He is not able to answer month and year questions for myself currently. NIH of 1. Patient taken directly over to CT scan for imaging. This did not reveal acute intracranial hemorrhage, mass but did show significant microvascular changes with likely old stroke. Patient has no history of this. Basic lab work is currently pending. Patient continues not to show that he has mental capacity to make his own medical decisions as he is unable to repeat the potential concerns that would want to bring him into the hospital. He will frequently just repeat back half of the sentence that I have told him. He does not state ever that he would be admitted for stroke evaluation. Patient does not seem to comprehend that he could be having a stroke. He is trying to leave the department AGAINST MEDICAL ADVICE. He was agreeable to waiting till his showed up to pick him up. The patient's and uncle did come to the hospital. I did review my concern with potential stroke with them as well as the patient. Patient does not appear to comprehend the risk/benefits with hospitalization versus going home. Family does state that he does drink a glass of vodka per day. He is never gone through withdrawal but they do not feel he is ever stopped drinking long enough to have withdrawal symptoms. My concern would eithe (more content not included)... Normal [facility] Ethanol SerPl-mCncon 023 Ethanol [Mass/Vol] 0.090 gm/dL High <0.010 [facility] Comment on above: Order Comment: Speci men Type: BLOOD SPECIMEN Ordering Facility: [facility] Address: [address] [place] [address] Performed By: #### 2 4321-2, 5643-2, 4024-6, 3298-7 #### [facility] CLIA [id number] [address] [place] [address] [place] HIGH SENSITIVITY TROPONIN Io n 12-06-2022 Tropinin I.cardiac panel High sensitivity method 8.1 pg/mL Normal 0.0-54.0 [facility] Comment on above: Order Comment: Speci men Type: BLOOD SPECIMEN Ordering Facility: [facility] Address: [address] [place] [address] Result Comment: This assay uses different antibodies than our current assay, and assays, even by the same chief deputy may recognize different regions of the antibody and cannot be used interchangeably. Expect results of this assay to run higher than the previous assay. Performed By: #### H RADHA #### [facility] CLIA [id number] [address] [place] [address] [place] POTASSIUM BLDon 12-06-2022 Potassium [Moles/Vol] 4.0 mmol/L Normal 3.5-5.1 [facility] Comment on above: Order Comment: Speci men Type: BLOOD SPECIMENOrdering Facility: [facility] Address: [address] [place] [address] Performed By: #### K 1, 3016-3 ####[facility]ORYCLIA [id number] [address] [place] PT panel Coag (PPP)on 2022 INR Coag (PPP) [Relative time] 1.0 {INR} Normal 0.9-1.3 [facility] Comment on above: Order Comment: Speci men Type: BLOOD SPECIMEN Ordering Facility: [facility] Address: [address] [id number] Result Comment: Kylie min K Antagonist (VKA) Therapeutic Range: INR 2 to 3 (Target INR of 2.5) Note: For patients treated with VKA drugs, such as warfarin, the [place] [employer] 2012 Guideline recommends a therapeutic INR range of 2 to 3 (target INR of 2.5). This recommendation includes high-risk patients with antiphospholipid syndrome with previous arterial or venous thromboembolism, current-generation mechanical or bioprosthetic aortic heart valve replacement. Note: Patients with mechanical aortic valve replacement and additional risk factors for thromboembolic events (atrial fibrillation, previous thromboembolism, LV dysfunction, hypercoagulable conditions) or an older generation mechanical AVR (i.e., ball in-Cage) or any mechanical MVR should have a INR therapeutic range of 2.5 to 3.5 (target INR of 3). Vonnie MONZON, et al. Chest 2012, 141:7S-47S Giles DEVINE, et al. [facility] 2017, 70: 252-289 Performed By: #### 3 4528-0, 29460-8 #### [facility] CLIA [id number] [address] [place] [address] [place] PT Coag (PPP) [Time] 10.6 s Normal 9.7-13.0 [facility] Comment on above: Order Comment: Fatmata magallanes Type: BLOOD SPECIMEN Ordering Facility: [facility] Address: [address] [place] [address] Performed By: #### 3 4528-0, 53203-2 #### [facility] CLIA [id number] [address] [place] [address] [place] Salicylates SerPl-mCncon Salicylates [Mass/Vol] mg/dL Normal 2.8-20.0 [facility] Comment on above: Order Comment: Fatmata magallanes Type: BLOOD SPECIMEN Ordering Facility: [facility] Address: [address] [place] [address] Result Comment: Refe rence ranges and high/low indicator flags are provided as general guidelines only. The treating physician must determine appropriate target levels/dosing based on the specific clinical situation. Performed By: #### 2 4321-2, 5643-2, 4024-6, 3298-7 #### [facility] CLIA [id number] [address] [place] [address] [place] TOX SCREEN ROUT URon 05-2 023 Amphetamines Confirm (U) [Mass/Vol] Negative Normal Negative [facility] Comment on above: Order Comment: Speci men Type: URINE SPECIMENOrdering Facility: [facility] Address: [address] [place] [address] Result Comment: Cuto ff threshold at 1000 ng/mL. Performed By: #### U TOX2 ####[facility]ORYCLIA [id number] [place] [address] [place] BARBITURATES, URINE Negative Normal Negative [facility] Comment on above: Order Comment: Speci men Type: URINE SPECIMENOrdering Facility: [facility] Address: [address] [place] [address] Result Comment: Cuto ff threshold at 200 ng/mL. Performed By: #### U TOX2 ####[facility]ORYCLIA [id number] [place] [address] [place] BENZODIAZEPINES, UR Negative Normal Negative [facility] Comment on above: Order Comment: Speci men Type: URINE SPECIMENOrdering Facility: [facility] Address: [address] [place] [address] Result Comment: Cuto ff threshold at 200 ng/mL. Performed By: #### U TOX2 ####[facility]ORYCLIA [id number] [place] [address] [place] Cannabinoids Screen Ql (U) Negative Normal Negative [facility] Comment on above: Order Comment: Speci men Type: URINE SPECIMENOrdering Facility: [facility] Address: [address] [place] [address] Result Comment: Cuto ff threshold at 50 ng/mL. Performed By: #### U TOX2 ####[facility]ORYCLIA [id number] [place] [address] [place] Cocaine Ql (U) Negative Normal Negative [facility] Comment on above: Order Comment: Speci men Type: URINE SPECIMENOrdering Facility: [facility] Address: [address] [place] [address] Result Comment: Cuto ff threshold at 300 ng/mL. Performed By: #### U TOX2 ####[facility]ORYCLIA [id number] [place] [address] [place] Opiates Screen Ql (U) Negative Normal Negative [facility] Comment on above: Order Comment: Speci men Type: URINE SPECIMENOrdering Facility: [facility] Address: [address] [place] [address] Result Comment: Cuto ff threshold at 300 ng/mL. Performed By: #### U TOX2 ####[facility]ORYCLIA [id number] [address] Phencyclidine Ql (U) Negative Normal Negative [facility] Comment on above: Order Comment: Speci men Type: URINE SPECIMENOrdering Facility: [facility] Address: [address] [place] [address] Result Comment: Cuto ff threshold at 25 ng/mL. Performed By: #### U TOX2 ####[facility]ORYCLIA [id number] [address] [place] TSH SerPl-aCncon 12-06-2022 TSH Qn 1.325 m[IU]/L Normal 0.358-3.74 0 [facility] Comment on above: Order Comment: Speci men Type: BLOOD SPECIMENOrdering Facility: [facility] Address: [address] [place] [address] Result Comment: 3rd generation ultra sensitive TSH. Performed By: #### K 1, 3016-3 ####[facility]ORYCLIA [id number] [address] OF [facility] Urinalysis complete panel (U )on 12-06-2022 Bacteria LM.HPF (Urine sed) [#/Area] None Seen Normal None Seen [facility] Comment on above: Order Comment: Speci men Type: URINE SPECIMENOrdering Facility: [facility] Address: [address] [place] [address] Performed By: #### 2 4356-8 ####[facility]ORYCLIA [id number] [place] [address] [place] Bilirubin Ql (U) Negative Normal Negative [facility] Comment on above: Order Comment: Speci men Type: URINE SPECIMENOrdering Facility: [facility] Address: [address] [place] [address] Performed By: #### 2 4356-8 ####[facility]ORYCLIA [id number] [address] OF [place] Clarity (Unsp spec) Clear Normal Clear [facility] Comment on above: Order Comment: Speci men Type: URINE SPECIMENOrdering Facility: [facility] Address: [address] [place] [address] Performed By: #### 2 4356-8 ####[facility]ORYIA [id number] [place] [address] [place] Color (U) Yellow Normal Yellow [facility] Comment on above: Order Comment: Speci men Type: URINE SPECIMENOrdering Facility: [facility] Address: [address] [place] [address] Performed By: #### 2 4356-8 ####[facility]ATORYIA [id number] [address] [place] Epithelial cells LM.HPF (Urine sed) [#/Area] Few Normal [facility] Comment on above: Order Comment: Speci men Type: URINE SPECIMENOrdering Facility: [facility] Address: [address] [place] [address] Performed By: #### 2 4356-8 ####[facility]ORYIA [id number] [address] OF [place] Glucose Test strip (U) [Mass/Vol] 3+ Abnormal Negative [facility] Comment on above: Order Comment: Speci men Type: URINE SPECIMENOrdering Facility: [facility] Address: [address] [place] [address] Performed By: #### 2 4356-8 ####[facility]ORYCLIA [id number] [address] [place] Hemoglobin Ql (U) 1+ Abnormal Negative [facility] Comment on above: Order Comment: Speci men Type: URINE SPECIMENOrdering Facility: [facility] Address: [address] [place] [address] Performed By: #### 2 4356-8 ####[facility]ATORYCLIA [id number] [place] [address] [place] Hyaline casts (Urine sed) [#/Area] 1-3 /LPF Abnormal 0 /LPF [facility] Comment on above: Order Comment: Speci men Type: URINE SPECIMENOrdering Facility: [facility] Address: [address] [place] [address] Performed By: #### 2 4356-8 ####[facility]ATORYCLIA [id number] [place] [address] [place] Ketones Ql (U) Negative Normal Negative [facility] Comment on above: Order Comment: Speci men Type: URINE SPECIMENOrdering Facility: [facility] Address: [address] [place] [address] Performed By: #### 2 4356-8 ####[facility]ATORYCLIA [id number] [address] Leukocyte esterase Test strip Ql (U) Negative Normal Negative [facility] Comment on above: Order Comment: Speci men Type: URINE SPECIMENOrdering Facility: [facility] Address: [address] [place] [address] Performed By: #### 2 4356-8 ####[facility]ATORYCLIA [id number] [place] [address] [place] Nitrite Ql (U) Negative Normal Negative [facility] Comment on above: Order Comment: Speci men Type: URINE SPECIMENOrdering Facility: [facility] Address: [address] [place] [address] Performed By: #### 2 4356-8 ####[facility]ORYCLIA [id number] [address] [place] pH (U) 5.0 [pH] Normal 5.0-8.0 [facility] Comment on above: Order Comment: Speci men Type: URINE SPECIMENOrdering Facility: [facility] Address: [address] [place] [address] Performed By: #### 2 4356-8 ####[facility]ORYCLIA [id number] [place] [address] [place] Protein (U) [Mass/Vol] 3+ Abnormal Negative [facility] Comment on above: Order Comment: Speci men Type: URINE SPECIMENOrdering Facility: [facility] Address: [address] [place] [address] Performed By: #### 2 4356-8 ####[facility]ORYCLIA [id number] [place] [address] [place] RBC LM.HPF (Urine sed) [#/Area] 0-3 /HPF Normal 0-3 /HPF [facility] Comment on above: Order Comment: Speci men Type: URINE SPECIMENOrdering Facility: [facility] Address: [address] [place] [address] Performed By: #### 2 4356-8 ####[facility]ORYIA [id number] [address] [place] Specific gravity (U) [Rel density] 1.011 Normal 1.005-1.03 0 [facility] Comment on above: Order Comment: Speci men Type: URINE SPECIMENOrdering Facility: [facility] Address: [address] [place] [address] Performed By: #### 2 4356-8 ####[facility]ORYIA [id number] [address] [place] Urobilinogen Ql (U) Negative Normal Negative [facility] Comment on above: Order Comment: Speci men Type: URINE SPECIMENOrdering Facility: [facility] Address: [address] [place] [address] Performed By: #### 2 4356-8 ####[facility]ORYCLIA [id number] [place] [address] [place] WBC LM.HPF (Urine sed) [#/Area] 0-5 /HPF Normal 0-5 /HPF [facility] Comment on above: Order Comment: Speci men Type: URINE SPECIMENOrdering Facility: [facility] Address: [address] [place] [address] Performed By: #### 2 4356-8 ####[facility]ORYCLIA [id number] [place] [address] [place] aPTT PPPon 12-06-2022 aPTT Coag (PPP) [Time] 26.8 s Normal 23.0-32.4 [facility] Comment on above: Order Comment: Speci men Type: BLOOD SPECIMEN Ordering Facility: [facility] Address: [address] [place] [address] Performed By: #### 3 4528-0, 84812-0 #### [facility] CLIA [id number] STATES OF [facility] Vital Signs Date Time Vital Sign Value Performing Clinician Faci lity 07-09-2024 09:04-0400 Body temperature 97.7 [degF] Dr. Juan C Barnes MD Work Phone: [facility] 07-09-2024 09:04-0400 Diastolic blood pressure 89 mm[Hg] Dr. Juan C Barnes MD Work Phone: [facility] 07-09-2024 09:04-0400 Heart rate 76 /min Dr. Juan C Barnes MD Work Phone: [facility] 07-09-2024 09:04-0400 Respiratory rate 15 /min Dr. Juan C Barnes MD Work Phone: [facility] 07-09-2024 09:04-0400 SaO2% (BldA) [Mass fraction] 100 % Dr. Juan C Barnes MD Work Phone: [facility] 07-09-2024 09:04-0400 Systolic blood pressure 153 mm[Hg] Dr. Juan C Barnes MD Work Phone: [facility] 06-24-2023 13:40-0400 Body temperature 97.3 [degF] Dr. Lawrence Skaggs Work Phone: 5(474)178-385480 [place] [address] 06-24-2023 13:40-0400 Diastolic blood pressure 96 mm[Hg] Dr. Lawrence Skaggs Work Phone: 7(499)796-563782 [place] [address] 06-24-2023 13:40-0400 Heart rate 92 /min Dr. Lawrence Skaggs Work Phone: 7(875)312-116882 [place] [address] 06-24-2023 13:40-0400 Respiratory rate 16 /min Dr. Lawrence Skaggs Work Phone: 5(646)684-286582 [place] [address] 06-24-2023 13:40-0400 SaO2% (BldA) [Mass fraction] 100 % Dr. Lawrence Skaggs Work Phone: 4(563)114-814782 [place] [address] 06-24-2023 13:40-0400 Systolic blood pressure 137 mm[Hg] Dr. Lawrence Skaggs Work Phone: 0(809)067-617380 [place] [address] 06-24-2023 11:42-0400 Body height 198.[address] Lawrence Skaggs Work Phone: 6(367)463-885980 [place] [address] 06-24-2023 11:42-0400 Body mass index (BMI) [Ratio] 17.8 kg/m2 Dr. Lawrence Skaggs Work Phone: 0(477)260-991580 [place] [address] 06-24-2023 11:42-0400 Body weight 69.[address] Lawrence Skaggs Work Phone: 7(850)094-926280 [place] [address] 05-15-2023 19:00-0400 Body temperature 98 [degF] Dr. Lawrence Skaggs Work Phone: 7(202)505-372080 [place] [address] 05-15-2023 19:00-0400 Diastolic blood pressure 74 mm[Hg] Dr. Lawrence Skaggs Work Phone: 6(509)344-304880 [place] [address] 05-15-2023 19:00-0400 Heart rate 76 /min Dr. Lawrence Skaggs Work Phone: 8(511)699-009180 [place] [address] 05-15-2023 19:00-0400 Respiratory rate 18 /min Dr. Lawrence Skaggs Work Phone: 5(548)862-036182 [place] [address] 05-15-2023 19:00-0400 SaO2% (BldA) [Mass fraction] 99 % Dr. Lawrence Skaggs Work Phone: 6(635)091-172482 [place] [address] 05-15-2023 19:00-0400 Systolic blood pressure 126 mm[Hg] Dr. Lawrence Skaggs Work Phone: 1(464)773-884482 [place] [address] 05-15-2023 09:12-0400 Body mass index (BMI) [Ratio] 18.7 kg/m2 Dr. Lawrence Skaggs Work Phone: 4(555)720-669482 [place] [address] 05-15-2023 09:12-0400 Body weight 73.[address] Lawrence Skaggs Work Phone: 8(915)813-722480 [place] [address] 05-15-2023 09:10-0400 Body height 198.[address] Lawrence Skaggs Work Phone: 0(045)439-312880 [place] [address] 05-10-2023 12:46-0500 Body height 182.[address] Lawrence Skaggs Work Phone: 2(399)153-027980 [place] [address] 05-10-2023 12:46-0500 Body weight 77.[address] Lawrence Skaggs Work Phone: 3(938)857-258780 [place] [address] 05-10-2023 09:38-0500 Body temperature 98.9 [degF] Dr. Lawrence Skaggs Work Phone: 1(203)043-793880 [place] [address] 05-10-2023 09:38-0500 Diastolic blood pressure 68 mm[Hg] Dr. Lawrence Skaggs Work Phone: 3(268)489-934280 [place] [address] 05-10-2023 09:38-0500 Heart rate 98 /min Dr. Lawrence Skaggs Work Phone: 5(555)334-575180 [place] [address] 05-10-2023 09:38-0500 Respiratory rate 16 /min Dr. Lawrence Skaggs Work Phone: [facility] 05-10-2023 09:38-0500 SaO2% (BldA) [Mass fraction] 95 % Dr. Lawrence Skaggs Work Phone: [facility] 05-10-2023 09:38-0500 Systolic blood pressure 133 mm[Hg] Dr. Lawrence Skaggs Work Phone: [facility] 05-10-2023 05:53-0500 Body mass index (BMI) [Ratio] 23.1 kg/m2 Dr. Lawrence Skaggs Work Phone: [facility] 05-07-2023 18:20-0500 Inhaled oxygen flow rate 4 L/min Dr. Lawrence Skaggs Work Phone: [facility] 05-05-2023 14:19-0500 Body temperature 97.9 [degF] [facility] 05-05-2023 14:19-0500 Diastolic blood pressure 59 mm[Hg] [facility] 05-05-2023 14:19-0500 Heart rate 101 /min [facility] 05-05-2023 14:19-0500 Respiratory rate 34 /min [facility] 05-05-2023 14:19-0500 SaO2% (BldA) [Mass fraction] 99 % [facility] 05-05-2023 14:19-0500 Systolic blood pressure 104 mm[Hg] [facility] 05-05-2023 14:00-0500 Inhaled oxygen flow rate 15 L/min [facility] 05-05-2023 11:50-0500 Body height 182.88 cm [facility] 05-05-2023 11:50-0500 Body mass index (BMI) [Ratio] 22.5 kg/m2 [facility] 05-05-2023 11:50-0500 Body weight 75.3 kg [facility] Encounters Encounter Date Encounter Type Care Provider Facility Start: 09-02-2024 [facility] Werner Razo y:[facility] Start: 08-18-2024 Non-patient / Non-visit Dr. Zane Wetzel MD -[facility] Start: 08-18-2024 End: 08-18-[address] Juan C Barnes MD Work Phone: [facility] Work Phone: Start: 08-18-2024 End: 08-18-[address] Werner Mccarty MD -Cardiovascular Services Work Phone: Start: 08-18-2024 End: 08-18-2024 ambulatory [facility] Facility:[facility] Start: 07-22-2024 Non-patient / Non-visit Dr. Marky Matamoros MD -[facility] Work Phone: Start: 07-22-2024 ambulatory Marky Matamoros Facility:[facility] Start: 07-22-[address] Dean Mccarty MD -Cardiovascular Services Work Phone: Start: 07-20-2024 End: 07-20-[address] Juan C Barnes MD Work Phone: [facility] Work Phone: Start: 07-20-2024 End: 07-20-[address] Werner Mccarty MD -[facility] Work Phone: Start: 07-20-2024 End: 07-20-2024 ambulatory [facility] Facility:[facility] Start: 07-09-2024 End: 07-09-[address] Werner Mccarty MD -[facility] Work Phone: Start: 07-09-2024 End: 07-09-2024 ambulatory [facility] Facility:[facility] Start: 11-20-2023 ambulatory [facility] Facility :[facility] Start: 11-20-2023 End: 11-20-2023 ambulatory Ryan Larios Facility:[facility] Start: 10-21-2023 End: 10-21-2023 ambulatory Juan C Barnes Facility:[facility] Start: 06-24-2023 Non-patient / Non-visit Dr. Lawrence Skaggs Work Phone: [facility] Start: 06-24-2023 End: 06-24-2023 Admission to same day surgery center Dr. Lawrence Skaggs Work Phone: [facility] Work Phone: Start: 06-24-2023 End: 06-24-[address] Lawrence Skaggs Work Phone: [facility] Work Phone: Start: 06-07-2023 End: 06-07-[address] Lawrence Skaggs Work Phone: [facility] Work Phone: Start: 05-21-[address] Lawrence Skaggs Work Phone: [facility] Start: 05-15-2023 End: 05-15-2023 Emergency department patient visit Dr. Lawrence Skaggs Work Phone: [facility] Work Phone: Start: 05-10-2023 Non-patient / Non-visit Dr. Lawrence Skaggs Work Phone: [facility] Work Phone: Start: 05-09-2023 Non-patient / Non-visit Dr. Lawrence Skaggs Work Phone: [facility] Work Phone: Start: 05-08-2023 Non-patient / Non-visit Dr. Lawrence Skaggs Work Phone: [facility] Start: 05-08-2023 Non-patient / Non-visit Dr. Lawrence Skaggs Work Phone: [facility] Work Phone: Start: 05-07-2023 Non-patient / Non-visit Dr. Lawrence Skaggs Work Phone: [facility] Start: 05-07-2023 Non-patient / Non-visit Dr. Lawrence Skaggs Work Phone: [facility] Work Phone: Start: 05-06-2023 Non-patient / Non-visit Dr. Lawrence Skaggs Work Phone: [facility] Start: 05-06-2023 Non-patient / Non-visit Dr. Lawrence Skaggs Work Phone: [facility] Work Phone: Start: 05-06-2023 Non-patient / Non-visit Dr. Lawrence Skaggs Work Phone: [facility] Start: 05-05-2023 End: 05-10-2023 [facility] Start: 12-09-2022 End: 12-10-2022 Evaluation and management of inpatient [facility] Facility:[id number] Start: 12-06-2022 End: 12-07-2022 Emergency department patient visit [facility] Facility:[id number] Procedures Date Procedure Procedure Detail Performing Clinician Start: 07-20-[address] Juan C Barnes MD Work Phone: Comment on above: Performed at: [address] [id number] Director: Jorge Calderon PhD, Phone: [phone] Start: 07-20-2024 Antibody to centromere measurement Dr. Candida Barnes MD Work Phone: Comment on above: Test not performed Start: 07-20-2024 Antibody to extractable nuclear antigen measurement Dr. Juan C Barnes MD Work Phone: Comment on above: Test not performed Start: 07-20-2024 Antibody to MARTY-[address] Juan C perez MD Work Phone: Comment on above: Test not performed Start: 07-20-2024 Antibody to lupus La protein measurement Dr. Juan C Barnes MD Work Phone: Comment on above: Test not performed Start: 07-20-2024 Antibody to SS-A measurement Dr. Juan C perez MD Work Phone: Comment on above: Test not performed Start: 07-20-[address] Juan C mares MD Work Phone: Comment on above: Test not performed Start: 07-20-2024 C>3< complement assay Dr. Juan C Barnes MD Work Phone: Start: 07-20-[address] Le[address] genotype Dr. Juan C mares MD Work Phone: Comment on above: Result: c.1601G>A (p.[id number]) - Not De tectedThis result is not associated with an increased risk for venousthromboembolism. See Additional Clinical Information andComments.Additional Clinical Information: Venous thromboembolism is a multifactorial diseaseinfluenced by genetic, environmental, and circumstantialrisk factors. The c.1601G>A (p. [id number]) variant in theF5 gene, commonly referred to as Factor V Leiden, is agenetic risk factor for venous thromboembolism.Heterozygous carriers of this variant have a 6- to 8-foldincreased risk for venous thromboembolism. Individualshomozygous for this variant (ie, with a copy of the varianton each chromosome) have an approximately 80-fold increasedrisk for venous thromboembolism. Individuals who carry qi c.*97G>A variant in the F2 gene and Factor V Leiden havean approximately 20-fold increased risk for venousthromboembolism. Risks are likely to be even higher in morecomplex genotype combinations involving the F2 c.*97G>Avariant and Factor V Leiden (PMID: 35477788). Additionalrisk factors include but are not limited to: deficiency ofprotein C, protein S, or antithrombin III, age, male sex,personal or family history of deep vein thromboembolism,smoking, surgery, prolonged immobilization, malignantneoplasm, tamoxifen treatment, raloxifene treatment, oralcontraceptive use, hormone replacement therapy, andpregnancy. Management of thrombotic risk and thromboticevents should follow established guidelines and fit theclinical circumstance. This result cannot predict theoccurrence or recurrence of a thrombotic event.Comment: Genetic counseling is recommended to discuss thepotential clinical implications of positive results, aswell as recommendations for testing family members. Genetic Coordinators are available for health careproviders to discuss results at [phone]).Test Details: Variant Analyzed: c.1601G>A (p. [id number]), referredto as Factor V LeidenMethods/Limitations: DNA analysis of the F5 gene (NM_000130.5) wasperformed by PCR amplification followed by electrophoresis.The diagnostic sensitivity is >99%. Results must becombined with clinical information for the most accurateinterpretation. Molecular-based testing is highly accurate,but as in any laboratory test, diagnostic errors may occur.False positive or false negative results may occur forreasons that include genetic variants, blood transfusions,bone marrow transplantation, somatic or tissue-specificmosaicism, mislabeled samples, or erroneous representationof family relationships. This test was developed and its performancecharacteristics determined by [employer]. It has not beencleared or approved by the Food and Drug Administration.References: Dylan Rucker, Zeny MATHEW, Jer R, Gerson WW, Miles JH;[facility] Professional Practice and Guidelines Committee.Addendum: [place] [employer] consensusstatement on factor V Leiden mutation testing. Ilana Med.2020May 06. doi: 10.1038/s60356-638-42909-k. PMID:30108332. Benedicto PEREZ. Factor V Leiden Thrombophilia. 1998July 15(Updated 2017Mar 07). In: Steve MP, Bobbi HH, Jared RA,et al., editors. Thien(R) (Internet). [place] ([place]):[facility], [place]; 6825-5586. Availablefrom: https://www.ncbi.nlm.nih.gov/books/CON2674/ Reece Rucker, Zeny MATHEW, Rickey X, Aime B, Diana EB, Ana P,Jass CS; [facility] Laboratory Animal Pathology Teacher Committee.Venous thromboembolism laboratory testing (factor V Leidenand factor II c. *97G>A), 2018 update: a technical standardof the [place] [employer] and [employer]omics([facility]). Ilana Med. 2018 Feb;20(12): 7358-8825. doi:10.1038/l40889-321-2822-c. Epub 2017Dec 06. PMID: 74149054. Start: 07-20-2024 Folic acid measurement, RBC Dr. Juan C tellez MD Work Phone: Start: 07-20-2024 Hemolytic complement CH50 level Dr. Juan C Barnes MD Work Phone: Comment on above: Age Male Female 1 - 30 days Not Estab. N ot Estab. 31 days - 6 months >32 >20 7 months - 17 years >39 >39 >17 years >41 >41 NOTE: The adult (>17 years) reference interval range is used to flag abnormals on this report. If the patient is 17 years old or younger, use the table above to determine out of range values. Start: 07-20-[address] Juan C Barnes MD Work Phone: Comment on above: No lupus anticoagulant was detected. Start: 07-20-2024 Lupus anticoagulant assay, platelet neutralization method Dr. Juan C Barnes MD Work Phone: Start: 07-20-2024 Lupus anticoagulant screening test Dr. Candida Barnes MD Work Phone: Start: 07-20-[address] Juan C Barnes MD Work Phone: Start: 07-20-2024 CONE WORKER antibody measurement Dr. Juan C mares MD Work Phone: Comment on above: Test not performed Start: 07-20-2024 Serum IgM anticardiolipin measurement Dr. Juan C Barnes MD Work Phone: Comment on above: Negative: <13 Indeterminate: 13 - 20 Low -Med Positive: >20 - 80 High Positive: >80 Start: 07-20-[address] Juan C Barnes MD Work Phone: Comment on above: Deficiency: <3.4 Marginal: 3.4 - 5.1 Catherine quate: >5.1 Start: 06-24-[address] Lawrence patel Work Phone: Start: 05-15-2023 Computed tomography of abdomen and pelvis with intravenous contrast Dr. Lawrence Skaggs Work Phone: Start: 05-15-2023 Plain chest X-ray Dr. Lawrence Skaggs Work Phone: Start: 05-08-[address] Lawrence Skaggs Work Phone: Start: 05-07-[address] Lawrence patel Work Phone: Start: 05-06-2023 CT of chest without contrast Dr. Lawrence Skaggs Work Phone: Start: 05-05-2023 Bacteria identified in Blood by Culture Dr. Lawrence Skaggs Work Phone: Start: 05-05-2023 Measurement of occult blood in stool specimen using immunoassay Start: 05-05-2023 SARS-CoV-2, Influenza & RSV (PCR) Start: 05-05-[address] Lawrence Skaggs Work Phone: Start: 05-05-2023 Plain chest X-ray Start: 05-05-2023 CT of head without contrast Plan of Treatment Date Care Activity Detail Author Start: 07-20-2024 Cardiolipin IgA and IgG and IgM panel - Serum [facility] Start: 07-20-2024 Complement C3 [Mass/volume] in Serum or Plasma [facility] Start: 07-20-2024 Complement C4 [Mass/volume] in Serum or Plasma [facility] Start: 07-20-2024 Complement total hemolytic CH50 [Units/volume] in Serum or Plasma [facility] Start: 07-20-2024 Cytoplasmic ANCA Screen [facility] Start: 07-20-2024 Factor V Leiden genotype [facility] Start: 07-20-2024 Folic acid measurement, RBC [facility] Start: 07-20-2024 Lupus anticoagulant assay [facility] Start: 07-20-2024 Protein C [Units/volume] in Platelet poor plasma by Coagulation assay [facility] Start: 07-20-2024 Protein C Ag actual/normal in Platelet poor plasma by Immunoassay [facility] Start: 07-20-2024 Protein S assay [facility] Start: 07-20-2024 Protein S function estimate [facility] Start: 07-20-2024 Targeted analysis for gene mutation [facility] Start: 07-20-2024 Thiamine measurement [facility] Start: 07-20-2024 [facility] Start: 07-20-2024 Vitamin B6 measurement [facility] Start: 06-24-2023 Patient discharge [facility] Start: 05-15-2023 [facility] Start: 05-15-2023 Insj non-ndwellg bladder catheter INSERT BLADDER CATHETER [facility] Start: 05-13-2023 Blood chemistry [facility] Start: 05-13-2023 Complete blood count [facility] Start: 05-12-2023 Blood chemistry [facility] Start: 05-12-2023 Complete blood count [facility] Start: 05-11-2023 Blood chemistry [facility] Start: 05-11-2023 Complete blood count [facility] Start: 05-10-2023 Patient discharge [facility] Start: 05-09-2023 Removal of urinary catheter [facility] Start: 05-08-2023 [facility] Start: 05-07-2023 Application of intermittent pneumatic compression device [facility] Start: 05-06-2023 End: 05-07-2023 [facility] Start: 05-06-2023 Care planning and problem solving actions [facility] Start: 05-06-2023 Care regimes management [facility] Start: 05-06-2023 Notification of physician [facility] Start: 05-05-2023 Referral to gastroenterology service [facility] Start: 05-05-2023 Speech therapy assessment [facility] Start: 05-05-2023 Following clinical pathway protocol [facility] Start: 05-05-2023 Assessment of risk of venous thromboembolism [facility] Start: 05-05-2023 Bedrest [facility] Start: 05-05-2023 Insertion of catheter into peripheral vein [facility] Start: 05-05-2023 Measuring intake and output [facility] Start: 05-05-2023 Providing care according to standard [facility] Start: 05-05-2023 Referral to occupational therapist [facility] Start: 05-05-2023 Referral to service [facility] Start: 05-05-2023 Vital signs measurements [facility] Start: 05-05-2023 [facility] Start: 05-05-2023 Consultation [facility] Start: 05-05-2023 Bacteria identified in Blood by Culture Blood Culture [facility] Start: 05-05-2023 Bacteria identified in Urine by Culture [facility] Start: 05-05-2023 Verification routine [facility] Start: 05-05-2023 Admission procedure [facility] Start: 05-05-2023 Hospital admission, emergency, from emergency room, medical nature [facility] Start: 05-05-2023 End: 05-06-2023 [facility] Start: 05-05-2023 End: 05-05-2023 Blood culture [facility] Start: 05-05-2023 Inhalation therapy procedure [facility] Start: 05-05-2023 Patient referral to dietitian [facility] Antibody to lupus La protein measurement [facility] Antibody to SS-A measurement [facility] Antithrombin III assay [facility] Antithrombin III ass ay, functional [facility] Blood ammonia measurement [facility] Cardiac event recording [facility] Cardiolipin IgG Ab [Units/volume] in Serum or Plasma [facility] Cardiolipin IgM Ab [Units/volume] in Serum or Plasma [facility] DNA double strand Ab [Units/volume] in Serum [facility] F5 gene mutations fo und [Identifier] in Blood or Tissue by Molecular genetics method [facility] Hematocrit [Volume Fraction] of Blood [facility] IgA anticardiolipin level [facility] Lupus anticoagulant screening test [facility] MR Brain WO and W co ntrast IV [facility] Partial thromboplast in time ratio [facility] Patient Education ED Diabetic Hyperglycemia ED Vomiting (Adult) [facility] Work Phone: Patient referral [facility] Work Phone: Protein S Free Ag actual/normal in Platelet poor plasma by Immunoassay [facility] Protein S, functional assay [facility] Radionuclide gastric emptying study [facility] Thrombin time [facility] US Carotid arteries [facility] Heart [facility] Vitamin B6 measurement [facility] Payers Date Payer Category Payer Self-pay 2023 Unknown [id number] 2018 Unknown [id number] Unknown [id number] 2.16.8 [id number] Unknown [id number] 2.16.8 [id number] Unknown [id number] 2.16.8 [id number] Unknown [id number] 2.16.8 [id number] Unknown [id number] 2.16.8 [id number] Unknown [id number] 2.16.8 [id number] Unknown [id number] 2.16.8 [id number] Unknown [id number] 2.16.8 [id number] Unknown [id number] 2.16.8 [id number] Unknown [id number] 2.16.8 [id number] Social History Date Type Detail Facility Start: 05-05-2023 End: 06-19-2023 Tobacco smoking status NHIS Unknown if ever smoked [facility] Start: 1960 Sex Assigned At Male [facility] Start: 11-19-2023 Tobacco smoking stat NHIS Ex-smoker (finding) [facility] Medical Equipment Procedure Code Equipment Code Equipment Origin al Text Equipment Identifier Dates EGD, with monitored anesthesia care Ligation clip, metallic ([id number] FDA Start: 08-12-2023 Goals Date Patient Goal Desired Activity /State Functional Status Date Assessment Result Facility 05-10-2023 Functional status Bedrest [facility] Work Phone: Mental Status Date Assessment Result Facility 06-24-2023 Cognitive function Light Pain [facility] Work Phone: 06-24-2023 Cognitive function Patient Orientation Pe rson [facility] Work Phone: 05-10-2023 Cognitive function Voice/Name [facility] Work Phone: Clinical Notes 12-09-2022 to 07-09-2024 Note Date & Type Note Facility 07-09-2024 Evaluation note Diagnosis Onset Date Resolution Cerebrovascular disease acute M 2024 9:02am Hyperlipidemia acute July 09, 2 025 9:02am Vascular dementia acute July 9:02am [facility] Work Phone: 1(679) 630-527009-18-2024 [facility] Medical Records Department [address] [place] [address] History Physical Exam 11/20/23 0929 MR#: [id number] Acct: [id number] Name: DREA COPELAND Rep #: [id number] : 1960 63 From: [facility] DO PCP: Dr. Juan C Barnes MD Status:[facility] Location: [place] [address] History and Physical Date of Admission: 11/20/23 DREA COPELAND, is a 63 M who presents to the office today for HFU. *BGI established via [facility] hospitalization 3.05.25-3. Presented with SOB per pneumonia. GI consulted for emesis, aspiration pneumonia and dysphagia. EGD 3.07.2524 Grade D erosive esophagitis with bleeding. Increased PPI to BID. [facility] ER 3.13.24 presented with nausea and vomiting. OV .07.25- Pt here with transporter with the Avenue. States he is not having any nausea or vomiting. Unsure how long he has PEG or why it was placed. Pt states he does do some oral intake without difficulty. EGD 06.24.23 Normal esophagus. Z-line irregular, 39 cm from the incisors. Biopsied. Intact gastrostomy with a patent G-tube present characterized by healthy appearing mucosa. No gross lesions in the first portion of the duodenum. [facility] ED 6.24 - 08.18.23 GI bleed - blood in peg tube and vomiting abd/pelvis CT 08.10.23 Distended stomach containing an air-fluid level with distended proximal half of the duodenum. There is a transition point in the distal duodenum as it passes between the aorta and the SMA, there may be a nutcracker effect present. PEG tube noted in the body of the stomach with no CT evidence of complication. Simple left renal cyst no specific follow-up needed. Dependent bladder calcifications. Degenerative bony changes EGD 08.12.23 Normal esophagus. Intact gastrostomy with a patent G-tube present characterized by healthy appearing mucosa. Non-bleeding duodenal ulcer with no stigmata of bleeding. Biopsied. Oozing duodenal ulcer with pigmented material. Treated with a heater probe. Clip was placed. 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 OV 10.21.23 Patient has been doing well. He denies abdominal pain, blood in his PEG and n/v. He continues to take Nexium 40 mg BID. He has no concerns today. ROS Const Constitutional: No anorexia, fatigue, fever(s), weight change or sleep problems Eyes Eyes: No change in vision ENT ENT: No abnormal hearing, difficulty swallowing, mouth lesions, tongue swelling or throat swelling Resp Respiratory: No cough or shortness of breath Cardio Cardiology: No chest pain at rest, chest pain with exertion, shortness of breath or dyspnea on exertion Gastro GI: No difficulty swallowing Genitourinary Male: No difficulty urinating or burning urination Musc Musculoskeletal: No joint pain, joint swelling, muscle weakness or decreased muscle mass Skin Skin: No hair loss in leg, yellowing of the eye, itchy eyes, rash, skin ulcer or skin swelling Neuro Neurology: No abnormal hearing, abnormal movements, confusion, unsteady gait/balance or memory loss Psych Psychiatric: No anxiety, No confusion and No memory loss Endo Endocrine: No fatigue or weight change Aller/Imm Allergy/Immunologic: No itchy eyes, throat swelling or tongue swelling Kayden/Lymp Hematologic/Lymphatic: No easy bleeding, easy bruising or enlarged lymph nodes Exam Const General: cooperative and comfortable Nutritional Appearance: average body habitus HENMT Head: normal to inspection Ears: hearing grossly normal bilaterally Nose: external nose normal Face and sinus: normal facial exam Eyes General: appearance normal, both eyes and all related structures Neck Neck: normal visual inspection Chest Chest palpation inspection: normal inspection of the chest Resp Effort Inspection: normal respiratory effort Cardio Palpation: normal PMI GI Inspection: normal to inspection Palpation: no hepatosplenomegaly Skin General: no rashes or lesions noted Neuro General: patient alert Extrem General: normal to inspection Psych Affect: normal affect Assessment and Plan Assessment and Plan (1) Duodenal ulcer: Status: Acute Plan: Patient is here today for f/u after hospital admission for GI bleed. He had EGD with duodenal ulcers which were treated with heater probe. He has been doing well. He is taking Nexium 40 mg BID -Will schedule for EGD next month to ensure healing of ulcers -He will continue taking Nexium 40 mg BID I have examined the patient and the H P has been reviewed. There are no clinical changes since date of exam. 11/20/23928 Cosigner Signature (if applicable): CC: Dr. Juan C Barnes MD; Ryan Larios DO [facility] History and physical note Author Ryan Larios [facility] June 24, 2023 11:29am Note Date/Time June 24, 2023 11: 29am [facility] Medical Records Department [address] [place] [address] History & Physical Exam 06/24/23 1129 MR#: [id number] Acct: [id number] Name: DREA COPELAND Rep #:[id number] : 1960 63 From: Ryan Larios DO PCP: Dr. Juan C Barnes MD Status:REG S CT Location: [place] [address] History and Physical Date of Admission: 06/24/23 DREA COPELAND, is a 63 M who presents to the office today for HFU. BGI established via [facility] hospitalization .05.25-05.10.23. Presented with SOB per pneumonia. GI consulted for emesis, aspiration pneumonia and dysphagia. EGD 05.07.2324 Grade D erosive esophagitis with bleeding. Increased PPI to BID. [facility] ER 05.15.23 presented with nausea and vomiting. OV .07.25- Pt here with transporter with the Avenue. States he is not having anynausea or vomiting. Unsure how long he has PEG or why it was placed. Pt states he does do some oral intake without difficulty. ROS Const Constitutional: No fatigue ENT ENT: No difficulty swallowing Gastro GI: No abdominal pain, belching, bloating, change in bowel habits, change in stool character, coffee ground emesis, constipation, cramping, diarrhea, heartburn, difficulty swallowing, feeling full early, excessive flatus, incontinent of stools, Vomiting blood/hematemesis, Blood in stool, loose stools,Black,tarry stools, nausea/dyspepsia, pain with swallowing, vomiting or other Musc Musculoskeletal: No joint pain Skin Skin: No yellowing of the eye or itchy eyes Psych Psychiatric: No anxiety and No depression Endo Endocrine: No fatigue Aller/Imm Allergy/Immunologic: No itchy eyes Kayden/Lymp Hematologic/Lymphatic: No easy bleeding or easy bruising Exam Const General: cooperative and comfortable Nutritional Appearance: average body habitus and well nourished [facility] Head: normal to inspection Ears: hearing grossly normal bilaterally Nose: external nose normal Face and sinus: normal facial exam Mouth: oral mucosae normal Throat: posterior oropharynx normal Eyes General: appearance normal, both eyes and all related structures Neck Neck: normal visual inspection Chest Chest palpation & inspection: normal inspection of the chest and normal palpation of entire chest wall Resp Effort & Inspection: normal respiratory effort Auscultation: Bilateral: Clear to Auscultation Cardio Palpation: normal PMI Rate: regular rate Rhythm: regular rhythm GI Inspection: normal to inspection Auscultation: normal bowel sounds Percussion: normal to percussion Palpation: no hepatosplenomegaly Skin General: no rashes or lesions noted Neuro General: patient alert Extrem General: normal to inspection Psych Affect: normal affect Quality Reporting Tobacco Screening ([facility] 138) Smoking Status: Former smoker Assessment and Plan Assessment and Plan (1) Abdominal pain: Status: Inactive Plan: 63-year-old male history of a large stroke in December with right-sided paralysis. Currently in extended-care facility resident. Presented to the ER due to him being hypotensive with nausea and vomiting. Repeat exam patient doing well at 12:20 PM. I discussed with the patient and his mom his lab results. Due to the elevated white count him to get a CT of hisabdomen. Repeat abdominal exam complains of mild periumbilical left-sided tenderness. There is no hernia, mass or obstruction. There is deafly no peritoneal signs. There is no specific right upper or right lower quadrant tenderness. No appreciable mass. He does not anymore currently for nausea according to his mom. He is receiving IV fluids. There is elevated blood sugar of 436 will be treated with subcu insulin. His gap is only 8. He is not in DKA. CAT scan of his abdomen showed no acute intra- abdominal pathology. He has a resolving right-sided pneumonia. The chestx-ray was much improved on that. His upper endoscopy did show severe erosive esophagitis LA grade D along with some inflammation in his stomach thought to be secondary to delayed gastric emptying from getting a PEG tube placed in the history of diabetes. Recommendation: Repeat upper endoscopy, check lab work including ESR, CRP, lactic acid, LDH and CBC I have examined the patient and the H&P has been reviewed. There are no clinicalchanges since date of exam. 06/24/23 1120 <Electronically signed by Ryan Larios DO> Cosigner Signature (if applicable): CC: Dr. Juan C Barnes MD; Ryan Larios DO~ Signed [facility] Work Phone: 1(579) 496-824204-22-2024 Procedure [facility] 06-24-2023 Procedure [facility]03-13-2024 Discharge summary Author Venancio Boswell [facility] May 15, 2023 4:21pm Note Date/Time May 15, 2023 9:4 7am [facility] Medical Records Department [address] [address] Emergency Department Summary 05/15/23 MR#: [id number] Acct: [id number] Name: DREA COPELAND Rep #:[id number] : 1960 63 From: Venancio Boswell MD PCP: Dr. Juan C Barnes MD Status:REG E R Location: ED HPI History of Present Illness Chief Complaint: Nausea/Vomiting Informant: patient and parent Onset/Context/Timing Onset: Today Context: Gradual Onset Timing: Continuous Current Severity: Mild Maximum Severity: Mild Narrative Narrative: 63-year-old male currently in resident of the halfway [facility]. Had a large stroke with right-sided hemiparalysis in December. Was here than [facility] in the [place]. He then was readmitted and discharged a week ago for pneumonia and dehydration. He does have a history of diabetes and hypertension also. Reportedly had nausea and vomiting today. Patient is a limited informant. His parents have arrived while was doing my exam. I spoken with them. 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 Nicotine dependence, other tobacco product, uncomplicated Other hereditary and idiopathic neuropathies Type 2 diabetes mellitus without complications Vitamin D deficiency, unspecified Home Medications ammonium lactate 12 % topical cream 1 applic topical BID PRN dry skin 05/05/23 [History Last Taken Unknown] aspirin 81 mg chewable tablet 1 tab feeding tube DAILY CARDIOVASCULAR 05/05/23 [History Last Taken Unknown] atorvastatin 80 mg tablet 80 mg feeding tube DAILY CHOLESTEROL 05/05/23 [History Last Taken Unknown] carvedilol 25 mg tablet 25 mg feeding tube BID HIGH BLOOD PRESSURE 05/05/23 [History Last Taken Unknown] cholecalciferol (vitamin D3) 50 mcg (2,000 unit) capsule 50 mcg feeding tube DAILY VIT D DEFICIENCY 05/05/23 [History Last Taken Unknown] insulin glargine 100 unit/mL subcutaneous solution 16 unit subcut QPM DIABETES 05/05/23 [History Last Taken Unknown] losartan 50 mg tablet 50 mg feeding tube DAILY HIGH BLOOD PRESSURE 05/05/23 [History Last Taken Unknown] multivitamin with iron-mineral 1 tab feeding tube DAILY VITAMIN 05/05/23 [History Last Taken Unknown] thiamine HCl (vitamin B1) 100 mg tablet 100 mg feeding tube DAILY VITAMIN B DIFICIENCY 05/05/23 [History Last Taken Unknown] doxycycline hyclate 100 mg capsule 100 mg PO BID 2 days #4 caps 05/10/23 [Rx Last Taken Unknown] pantoprazole 40 mg tablet,delayed release 40 mg PO BID #0 tabs 05/10/23 [Rx Last Taken Unknown] ondansetron 4 mg disintegrating tablet 4 mg PO Q6H PRN nausea and vomiting #10 tabs 05/15/23 [Rx Last Taken Unknown] Allergy/AdvReac Type Severity Reaction Status Date / Time No Known Allergies Allergy Verified 05/15/23 09:09 Social History Smoking Status: Former smoker ROS ROS ED ROS Narrative Nausea and vomiting today.Patient is a limited informant. Review of Systems ROS Unobtainable: Denies due to encephalopathy Constitutional Constitutional ED: Denies chills or fever(s) Eyes Eyes: Denies blurry vision ENT ENT ED: Denies ear pain Cardiovascular Cardiovascular: Denies chest pain Respiratory/Chest Respiratory/Chest: Denies cough Gastrointestinal Gastrointestinal: Reports nausea and vomiting; Denies abdominal pain, constipation, diarrhea or melena Genitourinary Genitourinary ED: Denies dysuria or hematuria Musculoskeletal Musculoskeletal: Denies arthralgias Integumentary Denies abscess Neurologic Neurologic: Denies headache(s) Psychiatric Psychiatric: Denies anxiety Endocrine Endocrinology: Denies cold intolerance Hematologic/Lymphatic Hematologic/Lymphatic: Reports none Allergic/Immunologic Allergic/Immunologic ED: Denies mouth swelling, tongue swelling or urticaria EXAM Physical Exam Narrative Exam Narrative: Six 3-year-old male initial blood pressure 96/66. Pulse ox 95% on room air. Afebrile. H EENT exam at light. Dry mucous members. Neck nontender no lymphadenopathy. Lungs clear to auscultation bilaterally. Heart regular rhythmrate about 110 no murmur. Chest wall and ribs nontender. Abdomen soft, nondistended normal bowel sounds no peritoneal signs. No signs of obstruction. He does have a left upper quadrant feeding tube. Extremities he has paralysis on the right upper and right lower extremity. They fall right back to the bed. 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 The hemiparalysis on the right is chronic from his stroke in December. He is awake. He does answer limited questions. He is a limited informant. Const Vital Signs: 05/15/23 09:10 05/15/23 09:10 05/15/23 11:09 Temperature 96.8 F L 96.8 F L Temperature Source Temporal Temporal Pulse Rate 112 H 111 H 109 H Respiratory Rate 18 18 18 Blood Pressure 96/66 96/66 100/68 Blood Pressure Mean 76 76 78 Pulse Ox 95 95 99 Oxygen Delivery Method Room Air 05/15/23 13:00 05/15/23 15:00 Temperature Temperature Source Pulse Rate 108 H 107 H Respiratory Rate 18 16 Blood Pressure 119/86 H 136/85 H Blood Pressure Mean 97 102 Pulse Ox 97 97 Oxygen Delivery Method Room Air Room Air Positive well nourished and well developed; Negative for obese, cachectic, contractures or unkempt General Appearance ED: well developed; Negative for unkempt, cachectic, contractures, cyanotic, diaphoretic, NAD or pallor Nutritional Appearance: Negative for cachectic or obese HEENT Reports dry mucous membranes; Denies moist mucous membranes Negative for trauma or tenderness Mouth ED: Yes dry mucous membranes Mouth: dry mucous membranes Eyes PERRL and EOMs intact bilaterally General Eye ED: Negative for pale conjunctiva or scleral icterus Neck no lymphadenopathy, supple and no JVD General: Negative for tenderness Lymph Lymphatic: Negative for other Chest Wall inspection of chest normal and palpation of chest normal Chest: Negative for other Resp normal respiratory effort and clear to auscultation bilaterally Effort and Inspection: Negative for retractions Auscultation: Negative for rales, rhonchi or wheezes Cardio regular rhythm, S1 normal heart sound, S2 normal heart sound and no murmurs; Negative for regular rate Palpation: Negative for palpable S3 or palpable S4 Rate: tachycardic Rhythm: Negative for abnormal rhythm GI normal to inspection, nondistended, normoactive bowel sounds, non-tender, non-distended and no masses Inspection: Negative for abdominal distention Auscultation: normoactive bowel sounds Palpation: soft; Negative for tender, guarding or rebound tenderness present Back/Spine no CVA tenderness General Back: Negative for CVA tenderness Cervical Spine: Negative for cervical spine tenderness Thoracic Spine / Upper Back: Negative for thoracic spinal tenderness Lumbar Spine / Lower Back: Negative for lumbar spinal tenderness Extremity Negative for normal to inspection Extremity Narrative: Right upper and lower extremity paralysis. General Extremety ED: Negative for edema or tenderness General Extremity: Negative for edema Neuro No oriented x3 Neuro Narrative: Right-sided hemiparalysis. Awake. Alert. Limited informant. Sensorium / Orientation: alert and orientation impaired Motor Exam: strength abnormal; Negative for strength 5/5 throughout Psych mental status grossly normal Appearance: Negative for unkempt Attitude: No agitated Mood & Affect: Negative for depressed, anxious or tearful Skin no rashes or lesions noted and no wounds General Skin Exam: Negative for jaundice or pallor Lesions: No lesion noted Rashes: No rashes noted Trauma: Negative for abrasion Wounds: Negative for wounds noted MDM MDM MDM Narrative Medical decision making narrative: 63-year-old male history of a large stroke in December with right-sided paralysis. Currently in extended-care facility resident. Presents today hypotensive with nausea and vomiting. Patient is a limited informant but his parents are present in the room I spoke to them about his history. Repeat exam patient doing well at 12:20 PM. I discussed with the patient and his mom his lab results. Due to the elevated white count him to get a CT of hisabdomen. Repeat abdominal exam complains of mild periumbilical left-sided tenderness. There is no hernia, mass or obstruction. There is deafly no peritoneal signs. There is no specific right upper or right lower quadrant tenderness. No appreciable mass. He does not anymore currently for nausea according to his mom. He is receiving IV fluids. There is elevated blood sugar of 436 will be treated with subcu insulin. His gap is only 8. He is not in DKA. CAT scan of his abdomen showed no acute intra- abdominal pathology. He has a resolving right-sided pneumonia. The chestx-ray was much improved on that. Patient doing well at 2:25 PM. Will be discharged back to extended-care facility. I spoke to his parents earlier. Patient's had no signs of bleeding. We will hook his PEG tube up to suction and ensure there is no blood there. He has had multiple episodes of vomiting and has been no blood in his emesis. I did speak to Dr. Larios about his recent endoscopy. He and I are comfortable the patient being discharged back to the extended care facility. History & Record Review Discussion w/independent historian: Patient and Family Additional record(s) reviewed:: Prior inpatient record, Prior outpatient record,Prior ED visit and Prior labs Lab Data Attestation: I reviewed the patient's lab results. Lab results narrative: CBC shows an elevated white count at 18.0. H&H 9.4 and 30. Platelets 549. Electrolytes show a gap of 8. BUN of 27 creatinine 1.19 consistent with dehydration. Glucose is elevated 436. Liver enzymes alk phos is 208. ALT 72. Lipase is only 77. Urinalysis is negative. No white or red cells. No nitrites nor bacteria. Labs: Laboratory Results - last 24 hr 05/15/23 05/15/23 10:25 13:20 WBC 18.0 H RBC 3.58 L Hgb 9.4 L Hct 30.4 L MCV 84.9 MCH 26.3 L MCHC 30.9 L RDW Std Deviation 36.3 RDW Coeff of [place] 11.9 Plt Count 549 H MPV 11.2 Immature Gran % (Auto) 0.400 Neut % (Auto) 80.9 H Lymph % (Auto) 14.0 L [place] % (Auto) 3.8 Eos % (Auto) 0.6 Baso % (Auto) 0.3 Absolute Neuts (auto) 14.5 H Absolute Lymphs (auto) 2.52 Nucleated RBC % 0 Sodium 138 Potassium 4.4 Chloride 98 Carbon Dioxide 32.0 Anion Gap 8 BUN 27 H Creatinine 1.19 Estim Creat Clear Calc 66.05 Est GFR (MDRD) Af Amer 79 Est GFR (MDRD) Non-Af 66 BUN/Creatinine Ratio 22.7 H Glucose 436 H Calcium 10.5 H Total Bilirubin 0.30 AST 20 ALT 72 H Alkaline Phosphatase 208 H Total Protein 8.4 H Albumin 2.5 L Globulin 5.9 H Albumin/Globulin Ratio 0.4 L Lipase 77 H Urine Color Yellow Urine Clarity Clear Urine pH 7.0 Ur Specific [place] 1.010 Urine Protein 100 H Urine Glucose (UA) 1000 H Urine Ketones Negative Urine Occult Blood Negative Urine Nitrite Negative Urine Bilirubin Negative Urine Urobilinogen Normal Ur Leukocyte Esterase 25 H Urine RBC 0 SEEN Urine WBC 0 SEEN Ur Squamous Epith Cells 0-5 SEEN Urine Bacteria 0 SEEN Urine Mucus 0 SEEN Radiography Chest X-Ray - ED: 1 View, Read by ED Physician, Read by Radiologist, Heart, Lungs, Mediastinum, Bony Structures, No Acute Disease and Chronic Changes Diagnostic Testing: Clinical Impression(s) from Imaging Studies Chest X-Ray 05/15/23 09:42 IMPRESSION: Improvement since the previous study with near complete resolution of the previously noted right lower lobe infiltrate. Follow-up recommended to assure complete resolution. Previously noted left basilar opacification has cleared Electronically Signed: Jeff Mariano MD at 10:14 EDT , Abdomen/Pelvis CT 05/15/23 12:19 IMPRESSION: 1. Residual right middle and lower lobe pneumonia with interval improvement in the right lower lobe consolidation. 2. No acute abdominal or pelvic abnormality. Electronically Signed: Cricket Lancaster MD at 13:06 EDT , Chest x-ray, portable, single view interpreted both by myself and the radiologist is unremarkable. Chronic changes. No acute process. Prior pneumonia is resolved. CT shows no acute intra-abdominal pathology. Read by the radiologist and reviewed by me. Discharge Plan Triage Chief Complaint: Nausea/Vomiting ED Provider: Venancio Boswell Dx/Rx/DC Orders Clinical Impression: History of embolic stroke, Hyperglycemia due to diabetes mellitus, History of diabetes mellitus, Abdominal pain, Vomiting Instructions: ED Diabetic Hyperglycemia, ED Vomiting (Adult) Prescriptions: New ondansetron 4 mg tablet,disintegrating 4 mg PO Q6H PRN (Reason: nausea and vomiting) Qty: 10 0RF Rx Instructions: Zofran for the nausea. You can put it through his feeding tube. No Action ammonium lactate 12 % cream 1 applic topical BID PRN (Reason: dry skin) aspirin 81 mg tablet,chewable 1 tab feeding tube DAILY atorvastatin 80 mg tablet 80 mg feeding tube DAILY carvedilol 25 mg tablet 25 mg feeding tube BID cholecalciferol (vitamin D3) 50 mcg (2,000 unit) capsule 50 mcg feeding tube DAILY insulin glargine 100 unit/mL solution 16 unit subcut QPM Rx Instructions: DO NOT HOLD UNLESS APPROVED BY losartan 50 mg tablet 50 mg feeding tube DAILY multivitamin with iron-mineral Tablet 1 tab feeding tube DAILY thiamine HCl (vitamin B1) 100 mg tablet 100 mg feeding tube DAILY pantoprazole 40 mg Tablet,Delayed Release (Dr/Ec) 40 mg PO BID Qty: 0 0RF doxycycline hyclate 100 mg capsule 100 mg PO BID 2 Days Qty: 4 0RF Primary Care Provider: Juan C Barnes Referrals: Juan C Barnes MD [Primary Care Provider] - 1-2 Days if not improving Maddy Monte NP-C [Non-Staff -Ordering Privileges] - Activity Restrictions/Additional Instructions: Follow-up in next several days for reevaluation either by your staff there or with his primary care provider. Plenty of fluids. Zofran as needed for nausea which you can put into his feeding tube. His labs show an elevated blood sugar of 436. We gave him insulin here subcu 12units. His blood sugar will need to be rechecked tonight at dinnertime. Otherwise his labs and the CAT scan of his abdomen did not show any acute pathology. Disposition Disposition: Home, Self Care What to do if you have Problems For any increased pain, shortness of breath, bleeding, nausea or vomiting, chestpain, or any unexpected problems, contact your Primary Care Provider. Call [facility] ([phone]) or report to the closest Emergency Room. Call 911 if necessary. 05/15/23 1621 <Electronically signed by Venancio Boswell MD> Cosigner Signature (if applicable): CC: Dr. Juan C Barnes MD ~ Signed [facility] Work Phone: [phone] 557-757903-08-2024 Consult note Author Vic Leon [facility] May 10, 2023 2:53pm Note Date/Time May 10, 2023 2:53 pm [facility] Medical Records Department [address] [place] [address] Counseling Note - Pharmacy 05/10/23 1453 MR#: [id number] Acct: [id number] Name: DREA COPELAND Rep #:[id number] : 1960 63 From: Vic Leon PCP: KATIE Jiménez Status :ADM IN Y Location: [place] [address] Med Reconciliation Pharmacy Service has performed discharge medication reconciliation for this patient. The patient's discharge medication list was reviewed for discrepancies and discrepancies were resolved. Medications at Discharge Home Medications ammonium lactate 12 % topical cream 1 applic topical BID PRN dry skin 05/05/23 aspirin 81 mg chewable tablet 1 tab feeding tube DAILY CARDIOVASCULAR 05/05/23 atorvastatin 80 mg tablet 80 mg feeding tube DAILY CHOLESTEROL 05/05/23 carvedilol 25 mg tablet 25 mg feeding tube BID HIGH BLOOD PRESSURE 05/05/23 cholecalciferol (vitamin D3) 50 mcg (2,000 unit) capsule 50 mcg feeding tube DAILY VIT D DEFICIENCY 05/05/23 insulin glargine 100 unit/mL subcutaneous solution 16 unit subcut QPM DIABETES 05/05/23 losartan 50 mg tablet 50 mg feeding tube DAILY HIGH BLOOD PRESSURE 05/05/23 multivitamin with iron-mineral 1 tab feeding tube DAILY VITAMIN 05/05/23 thiamine HCl (vitamin B1) 100 mg tablet 100 mg feeding tube DAILY VITAMIN B DIFICIENCY 05/05/23 doxycycline hyclate 100 mg capsule 100 mg PO BID 2 days #4 caps 05/10/23 pantoprazole 40 mg tablet,delayed release 40 mg PO BID #0 tabs 05/10/23 05/10/23 2673 <Electronically signed by Vic robles> Date _ Vic Lara Signature (if applicable): Date CC: ~ Signed [facility] Work Phone: [phone]) 235-523703-08-2024 Discharge summary Author Roverto Zavala [facility] May 10, 2023 2:11pm Note Date/Time May 10, 2023 2:03 pm [facility] Medical Records Department [address] [address] Instructions for Home/Discharge Instructions 05/10/23 1402 MR#: [id number] Acct: [id number] Name: DREA COPELAND Rep #:[id number] : 1960 63 From: Roverto pérez DO PCP: KATIE Jiménez Status :ADM IN Discharge Instructions Diet Discharge Diet: No restrictions Activity Discharge Activity: No Restrictions Weight Bearing Status: Full weight bearing Follow Up Care Test Results: Test results from this visit will be discussed in further detail at your follow- up appointment, if applicable. Discharge Plan Admission Admit Date/Time: 05/05/23 13:56 Primary Reason for Your Visit: acute respiratory failure secondary to pneumonia Attending Provider: Roverto aZvala Primary Care Provider: Maddy Monte Consulting Providers: Abril Barrera Discharge Orders/Prescriptions Prescriptions: New pantoprazole 40 mg Tablet,Delayed Release (Dr/Ec) 40 mg PO BID Qty: 0 0RF doxycycline hyclate 100 mg capsule 100 mg PO BID 2 Days Qty: 4 0RF Continued ammonium lactate 12 % cream 1 applic topical BID PRN (Reason: dry skin) aspirin 81 mg tablet,chewable 1 tab feeding tube DAILY atorvastatin 80 mg tablet 80 mg feeding tube DAILY carvedilol 25 mg tablet 25 mg feeding tube BID cholecalciferol (vitamin D3) 50 mcg (2,000 unit) capsule 50 mcg feeding tube DAILY insulin glargine 100 unit/mL solution 16 unit subcut QPM Rx Instructions: DO NOT HOLD UNLESS APPROVED BY losartan 50 mg tablet 50 mg feeding tube DAILY multivitamin with iron-mineral Tablet 1 tab feeding tube DAILY thiamine HCl (vitamin B1) 100 mg tablet 100 mg feeding tube DAILY Referrals / Follow Up: Juan C Barnes MD [Med Staff - Active Staff] - Maddy Monte NP-C [Primary Care Provider] - Disposition Disposition (needs filled in before D/C Order can be placed): Senior Living Facility 05/10/23 1411<Electronically signed by Roverto Zavala DO>Roverto Zavala DO CC: KATIE Monte; Dr. Abril Barrera MD ~ Signed [facility] Work Phone: [phone]) 298-957703-08-2024 Discharge summary Author Roverto Zavala [facility] May 10, 2023 6:04pm Note Date/Time May 10, 2023 2:11 pm [facility] Medical Records Department [address] [place] [address] [place] [address] Discharge Summary 05/10/23 141 MR#: [id number] Acct: [id number] Name: DREA COPELAND Rep #:[id number] : 1960 63 From: Roverto pérez DO PCP: KATIE Jiménez Status :[facility] Prov[facility] Date of Admission: 05/05/23 Date of Discharge: 05/10/23 Primary Care Physician: KATIE Jiménez Consultations 05/05/23 14:17 Consult: Industrial Insulator / Pulmonary Medicine Routine Consulting Provider: Intensivists/Pulmonary Med Reason for Consult: acute hypoxic respiratory failure EMERGENT Consult: No MD Notified: Yes Date Notified: 05/05/23 Time Notified: 14:17 Method of Notification: Notified TELE-ICU 05/05/23 18:53 Consult: Gastroenterology Routine Consulting Provider: [facility] Reason for Consult: GI Bleed EMERGENT Consult: No MD Notified: Yes Date Notified: 05/05/23 Time Notified: 18:54 Method of Notification: Text Reason For Visit: ACUTE HYPOXIC RESPIRATORY FAILURE Diagnosis Discharge Diagnosis (1) Pneumonia: Status: Acute Code(s): J18.9 - Pneumonia, unspecified organism (2) Acute hypoxemic respiratory failure: Status: Acute Code(s): J96.01 - Acute respiratory failure with hypoxia (3) Sepsis without septic shock: Status: Acute Code(s): A41.9 - Sepsis, unspecified organism Medications at Discharge Home Medications ammonium lactate 12 % topical cream 1 applic topical BID PRN dry skin 05/05/23 aspirin 81 mg chewable tablet 1 tab feeding tube DAILY CARDIOVASCULAR 05/05/23 atorvastatin 80 mg tablet 80 mg feeding tube DAILY CHOLESTEROL 05/05/23 carvedilol 25 mg tablet 25 mg feeding tube BID HIGH BLOOD PRESSURE 05/05/23 cholecalciferol (vitamin D3) 50 mcg (2,000 unit) capsule 50 mcg feeding tube DAILY VIT D DEFICIENCY 05/05/23 insulin glargine 100 unit/mL subcutaneous solution 16 unit subcut QPM DIABETES 05/05/23 losartan 50 mg tablet 50 mg feeding tube DAILY HIGH BLOOD PRESSURE 05/05/23 multivitamin with iron-mineral 1 tab feeding tube DAILY VITAMIN 05/05/23 thiamine HCl (vitamin B1) 100 mg tablet 100 mg feeding tube DAILY VITAMIN B DIFICIENCY 05/05/23 doxycycline hyclate 100 mg capsule 100 mg PO BID 2 days #4 caps 05/10/23 pantoprazole 40 mg tablet,delayed release 40 mg PO BID #0 tabs 05/10/23 Hospital Course Operations None Procedures EKG, Modified Barium Swallow and - (CT brain without contrast, CT chest without contrast, chest x-ray) Summary of Care Provided Minutes Spent on Discharge: 35 Hospital Course: Patient is a 63-year-old male who [facility] to [facility] ED on 05/05/2023 with shortness of breath. Hospital course as noted below. Patient wasdischarged to SNF in stable condition on 05/09. 1. Acute hypoxic respiratory failure and sepsis without shock secondary to community-acquired pneumonia with unknown organism, improving Chest x-ray on admit showed right lower lobe pneumonia, CT chest showed dense right lower lobe consolidation with some additional patchy airspace disease in right upper and left lower lobes consistent with pneumonia. Required up to 15 Lof oxygen on admission. Met sepsis criteria on admission with leukocytosis, fever, tachycardia, tachypnea, YADI, altered mental status as noted below. Given1 L normal saline on admission with maintenance fluids after this, with some improvement in tachycardia, blood pressure stable throughout. Did not give full30 cc/kg for sepsis fluids given respiratory failure. Respiratory panel negative. Urine antigens negative. Unable to produce sputum culture. Blood cultures negative. ? Industrial Insulator followed. Stable on room air on 05/05, transferred out of ICU. Treated with cefepime and vancomycin while inpatient, discharged on doxycycline to complete a 7-day course of antibiotics total. Continue scheduled bronchodilators. Tube feeds restarted on 05/05 without issue. 2. Acute metabolic encephalopathy, resolved ? Presumed secondary to respiratory failure and sepsis as noted above. CT head on admit with no acute findings. Mental status improved to baseline on 05/06. 3. Suspected YADI, resolved ? Creatinine 1.70 on admit, baseline creatinine unknown. Creatinine improving with IV fluids and restarting tube feeds, most recent creatinine 0.77 on 05/07 with adequate urine output. Monitor daily BMP and urine output. 4. Recent history of stroke with right-sided hemiplegia and dysphagia ? Had recent stroke in 12/2022. Has been residing at skilled nurse facility since then. Has PEG tube in place for tube feeds. ? Nutrition following, tube feeds restarted on 05/05 without issue. ? GI following, EGD on 05/06 showed erosive esophagitis with bleeding that was treated with heater probe, otherwise showed an intact gastrostomy with patent G-tube characterized by healthy-appearing mucosa. ? Speech therapy following. Patient completed MBSS on 05/07, okay for diet with mechanical soft textures and thin liquids with small bites, small sips, slow rate and one-to-one close supervision. ? PT/OT/case management followed. Medically ready for discharge on 05/07, discharged to SNF in stable condition on 05/09. 5. Hypernatremia, resolved ? Sodium 150 on 05/06, chloride 124. Presumed secondary to dehydration from n.p.o. status. Slightly increased to 200 ml of free water given with each tube feed bolus every 4 hours on 05/06, repeat sodium 143 on 05/07. Nutrition followed, appreciate further recs with how much free water to give with tube feeds going forward. 6. Acute on chronic anemia ? Hemoglobin 12.9 on admit, decreased to 10.2 after IV fluids. No previously known baseline. Hemoglobin slowly downtrended during admission with eliana at 8.9 on 05/06. GI following, s/p EGD on 05/06 that showed grade D erosive esophagitis with bleeding that was treated, no ulcers noted. Repeat hemoglobin 9.5 on 05/07. Continue p.o. PPI twice daily. Hemoglobin stable ~9 on discharge. Chronic medical conditions: ? Hypertension: Home Coreg and losartan held during admission, okay to resume ondischarge. ? Type 2 diabetes mellitus: Continue home Lantus 16 units at night with sliding scale insulin with tube feeds, adjust as needed. ? Hyperlipidemia: Continue home statin. ? GERD: Increased to p.o. PPI twice daily as noted above. Total clinical time spent by myself addressing the patient's medical issues, reviewing all the data, and collaborating with patient's care team: 35 minutes. Physical Exam Const alert, no apparent distress and average body habitus Constitutional Narrative: Elderly male, chronically ill-appearing, awake and alert appearing today, answers questions with short appropriate responses, cognition and speech remain delayed, resting comfortably in bed and in no acute distress. General Appearance: cooperative and comfortable HEENT normocephalic, head/scalp atraumatic, hearing grossly normal bilaterally and nasal mucous membranes and turbinates normal Eyes PERRL, EOMs intact bilaterally and conjunctivae normal Chest inspection of chest normal Resp normal respiratory effort and no use of accessory muscles Resp Narrative: Breathing comfortably on room air with good oxygen saturations. Mildly decreased breath sounds bilaterally, worse in right base. No wheezing or crackles noted. Cardio regular rate, regular rhythm, no murmurs and peripheral pulses 2+ throughout GI normal to inspection, nondistended, normoactive bowel sounds, soft to palpation,non-tender and non-distended Extremity normal to inspection and no pedal edema Skin no rashes or lesions noted Neuro Neuro Narrative: Residual right-sided hemiplegia noted. Sensorium / Orientation: alert Psych mental status grossly normal Weight / BMI Weight Weight: 77.25 kg Body Mass Index (BMI) 23.1 ABG / Lab / Microbiology Data 05/10/23 02:19 05/10/23 02:19 Laboratory: Laboratory Results - last 24 hr 05/09/23 15:45: POC Glucose 224 H 05/09/23 21:32: POC Glucose 298 H 05/10/23 01:03: POC Glucose 247 H 05/10/23 02:19: WBC 5.1, RBC 5.15, Hgb 14.0, Hct 43.9, MCV 85.2, MCH 27.2, MCHC 31.9 L, RDW Std Deviation 37.2, RDW Coeff of Warren 12.0, Plt Count 105 L, MPV 12.1H, Sodium 136, Potassium 3.6, Chloride 103, Carbon Dioxide 24.0, Anion Gap 9, BUN 12, Creatinine 0.74, Estim Creat Clear Calc 109.11, Est GFR (MDRD) Af Amer 137, Est GFR (MDRD) Non-Af 114, BUN/Creatinine Ratio 16.2, Glucose 246 H, Calcium 8.5, Vancomycin Trough 13.1 05/10/23 05:00: POC Glucose 251 H 05/10/23 08:08: POC Glucose 214 H Microbiology: Microbiology 05/05/23 12:02 Blood Culture (Wb) - Anticubital Left Blood Culture - Final No growth in 5 days. 05/05/23 12:00 Blood Culture (Wb) - Anticubital Right Blood Culture - Final No growth in 5 days. 05/05/23 12:55 Urine, Catheterized Urine Culture - Final Culture exhibits no growth. 05/05/23 12:55 Urine Catheter - Hubbard Legionella Antigen - Final 05/05/23 12:55 Urine Catheter - Hubbard Streptococcus pneumoniae Antigen (M - Final 05/05/23 12:20 Mucosa - Nose SARS-CoV-2, Influenza & RSV (PCR) - Final 05/05/23 12:25 Stool Stool Occult Blood (JOANA) - Final Occult Blood Positive D/C Instructions Discharge Diet: No restrictions Weight Bearing Status: Full weight bearing Meaningful Use Info Meaningful Use Diagnoses (Choose all that apply): None applicable Discharge Plan Admission Admit Date/Time: 05/05/23 13:56 Primary Reason for Your Visit: acute respiratory failure secondary to pneumonia Attending Provider: Roverto Zavala Primary Care Provider: Maddy Monte Consulting Providers: Abril Barrera Discharge Orders/Prescriptions Prescriptions: New pantoprazole 40 mg Tablet,Delayed Release (Dr/Ec) 40 mg PO BID Qty: 0 0RF doxycycline hyclate 100 mg capsule 100 mg PO BID 2 Days Qty: 4 0RF Continued ammonium lactate 12 % cream 1 applic topical BID PRN (Reason: dry skin) aspirin 81 mg tablet,chewable 1 tab feeding tube DAILY atorvastatin 80 mg tablet 80 mg feeding tube DAILY carvedilol 25 mg tablet 25 mg feeding tube BID cholecalciferol (vitamin D3) 50 mcg (2,000 unit) capsule 50 mcg feeding tube DAILY insulin glargine 100 unit/mL solution 16 unit subcut QPM Rx Instructions: DO NOT HOLD UNLESS APPROVED BY losartan 50 mg tablet 50 mg feeding tube DAILY multivitamin with iron-mineral Tablet 1 tab feeding tube DAILY thiamine HCl (vitamin B1) 100 mg tablet 100 mg feeding tube DAILY Referrals / Follow Up: Juan C Barnes MD [Med Staff - Active Staff] - Maddy Monte, INSURANCE COORDINATOR-C [Primary Care Provider] - Disposition Disposition (needs filled in before D/C Order can be placed): Senior Living Facility Charges/Coding Visit Charges Inpatient E&M: 37850 Disch Hosp >30min 05/10/23 180 <Electronically signed by Roverto Zavala DO> Cosigner Signature (if applicable): CC: KATIE Monte; Dr. Roverto Zavala DO~ Signed [facility] Work Phone: 1(554) 213-224203-08-2024 Discharge summary Author Roverto Zavala [facility] May 10, 2023 2:10pm Note Date/Time May 10, 2023 2:10 pm [facility] Medical Records Department [address] [address] Transfer to [facility] MR#: [id number] Acct: [id number] Name: DREA COPELAND Rep #:[id number] : 1960 63 From: Roverto pérez DO PCP: KATIE Jiménez Status :ADM IN Certification of patient admission REQUIRED AT TIME OF ADMISSION. I CERTIFY THAT POST-HOSPITAL ECF SERVICES ARE REQUIRED TO BE GIVEN ON AN IN-PATIENT BASIS BECAUSE OF THE ABOVE NAMED PATIENT'S NEED FOR [facility] CARE ON A CONTINUING BASIS FOR THE CONDITION(S) FOR WHICH HE/SHE WAS RECEIVING IN-PATIENT HOSPITAL SERVICES PRIOR TO HIS/HER TRANSFER TO THE [facility]. 05/10/23 1410<Electronically signed by Roverto Zavala DO> Diet Diet Order/Speech Therapy: 05/08/23 09:57 Diet: Regular - General Food consistency:: Soft & Bite Sized Liquid Consistency:: Regular/Thin Is pt able to select menu?: No Diet Comments: Direct supervision - SMALL bites/sips, one at a time Routine Orders/Code Status Code Status: Full Code Therapies Weight Bearing: Weight bearing as tolerated Physical Therapy: Eval and Treat Occupational Therapy: Eval and Treat Speech Therapy: Eval and Treat Problem/Diagnosis (1) Pneumonia: Status: Acute Code(s): J18.9 - Pneumonia, unspecified organism (2) Acute hypoxemic respiratory failure: Status: Acute Code(s): J96.01 - Acute respiratory failure with hypoxia (3) Sepsis without septic shock: Status: Acute Code(s): A41.9 - Sepsis, unspecified organism Plan Patient is a 63-year-old male who presented to [facility] ED on 05/05/2023 with shortness of breath. Hospital course as noted below. Patient wasdischarged to SNF in stable condition on . Acute hypoxic respiratory failure and sepsis without shock secondary to community-acquired pneumonia with unknown organism, improving Chest x-ray on admit showed right lower lobe pneumonia, CT chest showed dense right lower lobe consolidation with some additional patchy airspace disease in right upper and left lower lobes consistent with pneumonia. Required up to 15 Lof oxygen on admission. Met sepsis criteria on admission with leukocytosis, fever, tachycardia, tachypnea, YADI, altered mental status as noted below. Given1 L normal saline on admission with maintenance fluids after this, with some improvement in tachycardia, blood pressure stable throughout. Did not give full30 cc/kg for sepsis fluids given respiratory failure. Respiratory panel negative. Urine antigens negative. Unable to produce sputum culture. Blood cultures negative. ? Industrial Insulator followed. Stable on room air on 05/05, transferred out of ICU. Treated with cefepime and vancomycin while inpatient, discharged on doxycycline to complete a 7-day course of antibiotics total. Continue scheduled bronchodilators. Tube feeds restarted on 05/05 without issue. 2. Acute metabolic encephalopathy, resolved ? Presumed secondary to respiratory failure and sepsis as noted above. CT head on admit with no acute findings. Mental status improved to baseline on 05/06. 3. Suspected YADI, resolved ? Creatinine 1.70 on admit, baseline creatinine unknown. Creatinine improving with IV fluids and restarting tube feeds, most recent creatinine 0.77 on 05/07 with adequate urine output. Monitor daily BMP and urine output. 4. Recent history of stroke with right-sided hemiplegia and dysphagia ? Had recent stroke in 12/2022. Has been residing at skilled nurse facility since then. Has PEG tube in place for tube feeds. ? Nutrition following, tube feeds restarted on 05/05 without issue. ? GI following, EGD on 05/06 showed erosive esophagitis with bleeding that was treated with heater probe, otherwise showed an intact gastrostomy with patent G-tube characterized by healthy-appearing mucosa. ? Speech therapy following. Patient completed MBSS on 05/07, okay for diet with mechanical soft textures and thin liquids with small bites, small sips, slow rate and one-to-one close supervision. ? PT/OT/case management followed. Medically ready for discharge on 05/07, discharged to SNF in stable condition on 05/09. 5. Hypernatremia, resolved ? Sodium 150 on 05/06, chloride 124. Presumed secondary to dehydration from n.p.o. status. Slightly increased to 200 ml of free water given with each tube feed bolus every 4 hours on 05/06, repeat sodium 143 on 05/07. Nutrition followed, appreciate further recs with how much free water to give with tube feeds going forward. 6. Acute on chronic anemia ? Hemoglobin 12.9 on admit, decreased to 10.2 after IV fluids. No previously known baseline. Hemoglobin slowly downtrended during admission with eliana at 8.9 on 05/06. GI following, s/p EGD on 05/06 that showed grade D erosive esophagitis with bleeding that was treated, no ulcers noted. Repeat hemoglobin 9.5 on 05/07. Continue p.o. PPI twice daily. Hemoglobin stable ~9 on discharge. Chronic medical conditions: ? Hypertension: Home Coreg and losartan held during admission, okay to resume ondischarge. ? Type 2 diabetes mellitus: Continue home Lantus 16 units at night with sliding scale insulin with tube feeds, adjust as needed. ? Hyperlipidemia: Continue home statin. ? GERD: Increased to p.o. PPI twice daily as noted above. Total clinical time spent by myself addressing the patient's medical issues, reviewing all the data, and collaborating with patient's care team: 35 minutes. Allergies/Procedures Done in Hospital Allergies No Known Allergies Allergy (Verified 05/05/23 11:58) Procedures: EKG and - (CT brain without contrast, CXR, CT chest w/out contrast, MBSS) Type of Care/Length of Stay Estimated LOS: Convalescent Care Less Than 30 days Type of Care Needed: Skilled Rehab Potential: Fair Prognosis: Fair Additional Orders/Day of Discharge H&P will serve as current which was dated: 05/05/23 Day of Discharge: 05/10/23 Dietary and Speech Recommendations Dietitian Recommendations/Changes: Continue TF support via PEG tube: Jevity 1.5 at 60mL/hour with 200mL H2O flush every 4 hours to provide 2160 calories, 92 g protein, and 2294mL total fluid/day. PO diet for comfort: regular diet as tolerated with textures/consistency per UNHAIRER. Will adjust diet/Enteral nutrition support as indicated; TF meeting~100% estimated nutrition needs as currently ordered. Discharge Plan Admission Admit Date/Time: 05/05/23 13:56 Primary Reason for Your Visit: acute respiratory failure secondary to pneumonia Attending Provider: Roverto Zavala Primary Care Provider: Maddy Monte Consulting Providers: Abril Barrera Discharge Orders/Prescriptions Prescriptions: New pantoprazole 40 mg Tablet,Delayed Release (Dr/Ec) 40 mg PO BID Qty: 0 0RF Continued ammonium lactate 12 % cream 1 applic topical BID PRN (Reason: dry skin) aspirin 81 mg tablet,chewable 1 tab feeding tube DAILY atorvastatin 80 mg tablet 80 mg feeding tube DAILY carvedilol 25 mg tablet 25 mg feeding tube BID cholecalciferol (vitamin D3) 50 mcg (2,000 unit) capsule 50 mcg feeding tube DAILY insulin glargine 100 unit/mL solution 16 unit subcut QPM Rx Instructions: DO NOT HOLD UNLESS APPROVED BY losartan 50 mg tablet 50 mg feeding tube DAILY multivitamin with iron-mineral Tablet 1 tab feeding tube DAILY thiamine HCl (vitamin B1) 100 mg tablet 100 mg feeding tube DAILY Referrals / Follow Up: Juan C Barnes MD [Med Staff - Active Staff] - Maddy Monte NP-C [Primary Care Provider] - Disposition Disposition (needs filled in before D/C Order can be placed): Senior Living Facility Charges/Coding Visit Charges Inpatient E&M: 92295 Disch Hosp >30min 05/10/23 1410 <Electronically signed by Roverto Zavala DO> Cosigner Signature (if applicable): CC: KATIE Monte; Dr. Abril Barrera MD ~ [facility] Work Phone: 1(411) 358-688603-08-2024 Consult note Author Elliot Walker [facility] May 10, 2023 3:07am Note Date/Time May 10, 2023 3:07 am [facility] Medical Records Department [address] [place] [id number] Pharmacokinetic/Renal -Consult 05/10/23 0306 MR#: [id number] Acct: [id number] Name: DREA COPELAND Rep #:[id number] : 1960 63 From: Elliot Cagle od PCP: KATIE Jiménez Status :ADM IN Y Location: [place] [address] Consult Antibiotic Management Pharmacy has been consulted to manage selected antibiotic: Vancomycin Type of Intervention Type of Consult: Follow-up Labs Labs: Sodium 136 mmol/L (136-145) 05/10/23 02:19 Potassium 3.6 mmol/L (3.5-5.1) 05/10/23 02:19 Chloride 103 mmol/L (98-107) 05/10/23 02:19 Carbon Dioxide 24.0 mmol/L (21.0-32.0) 05/10/23 02:19 Anion Gap 9 (5-15) 05/10/23 02:19 BUN 12 mg/dL (7-18) 05/10/23 02:19 Creatinine 0.74 mg/dL (0.70-1.30) 05/10/23 02:19 Est GFR (MDRD) Af Amer 137 mL/min (>60) 05/10/23 02:19 Est GFR (MDRD) Non-Af 114 mL/min (>60) 05/10/23 02:19 BUN/Creatinine Ratio 16.2 RATIO (10-20) 05/10/23 02:19 Glucose 246 mg/dL (74-106) H 05/10/23 02:19 Vancomycin Trough 13.1 ug/mL (5.0-15.0) 05/10/23 02:19 Microbiology Microbiology: Microbiology 05/05/23 12:02 Blood Culture (Wb) - Anticubital Left Blood Culture - Preliminary No growth in 48 hours. 05/05/23 12:00 Blood Culture (Wb) - Anticubital Right Blood Culture - Preliminary No growth in 48 hours. 05/05/23 12:55 Urine, Catheterized Urine Culture - Final Culture exhibits no growth. 05/05/23 12:55 Urine Catheter - Hubbard Legionella Antigen - Final 05/05/23 12:55 Urine Catheter - Hubbard Streptococcus pneumoniae Antigen (M - Final 05/05/23 12:20 Mucosa - Nose SARS-CoV-2, Influenza & RSV (PCR) - Final 05/05/23 12:25 Stool Stool Occult Blood (JOANA) - Final Occult Blood Positive Goal Trough Goal Trough: 15-20 mcg/mL Pharmacy Plan for Drug Dosing Pharmacy Plan for Drug Dosing: Pharmacy Service will continue to monitor and adjust dosing as required. TROUGH 13.1 @ 12 HOURS. INCREASE TO 1250MG Q12H AND FOLLOW UP TROUGH PRIOR TO 4TH DOSE Follow-Up Labs Follow-Up Labs: Trough: Vancomycin Date/Time Labs Ordered Labs to be done on [date and time ordered]: 05/10 @ 1430 05/10/23 0307 <Electronically signed by Elliot palacios> Date _ Elliot Lara Signature (if applicable): Date CC: ~ Signed [facility] Work Phone: 1(270) 287-225603-07-2024 Progress note Author Roverto Zavala [facility] May 09, 2023 5:14pm Note Date/Time May 09, 2023 3:14 pm [facility] Medical Records Department [address] [address] Progress Note - Hospitalist 05/09/23 1514 MR#: [id number] Acct: [id number] Name: DREA COPELAND Compa Rep #:[id number] : 1960 63 From: Roverto pérze DO PCP: KATIE Jiménez Status :ADM IN Location: [place] [address] Reason for Visit Reason for Visit: Diagnoses Sepsis, unspecified organism (05/05/23) Pneumonia, unspecified organism (05/05/23) Acute respiratory failure with hypoxia (05/05/23) Subjective Subjective No acute events overnight. Patient seen at bedside this morning. Therapy was working with him when I saw him this morning. Patient appeared well this morning, similar to previous days. Denied any acute pain or discomfort today. No other acute concerns. Objective Data Objective Data Vital Signs: Vital Signs Temp Pulse Resp BP Pulse Ox O2 Del Method O2 Flow Rate 98.6 F 88 14 143/74 H 95 Room Air 4 05/09/23 09:40 05/09/23 09:40 05/09/23 09:40 05/09/23 09:40 05/09/23 09:40 05/09/23 10:00 05/07/23 18:20 Oxygen Flow Rate (L/min) 4 Oxygen Delivery Method Room Air Weight: 75.5 kg Body Mass Index (BMI) 22.6 Intake & Output: Intake and Output for Last 24 Hours 05/07/23 05/08/23 05/09/23 23:59 23:59 23:59 Intake Total 1848.00 / 1848.00 2200.17 / 2200.17 1478.83 / 1478.83 Output Total 1700 / 2550 3050 / 3050 350 / 350 Balance 148.00 / -702.00 -849.83 / -849.83 1128.83 / 1128.83 Lab / Micro Data 05/09/23 05:50 05/09/23 05:50 Labs: Laboratory Results - last 24 hr 05/08/23 16:04: POC Glucose 238 H 05/08/23 20:48: POC Glucose 262 H 05/09/23 00:55: POC Glucose 233 H 05/09/23 05:12: POC Glucose 242 H 05/09/23 05:50: WBC 4.1 L, RBC 4.73, Hgb 13.0, Hct 41.3, MCV 87.3, MCH 27.5, MCHC 31.5 L D, RDW Std Deviation 39.3, RDW Coeff of Warren 12.1, Plt Count 100 L, MPV 12.2 H, Sodium 140, Potassium 3.4 L, Chloride 109 H, Carbon Dioxide 24.0, Anion Gap 7, BUN 14, Creatinine 0.76, Estim Creat Clear Calc 106.24, Est GFR (MDRD) Af Amer 133, Est GFR (MDRD) Non-Af 110, BUN/Creatinine Ratio 18.4, Glucose 260 H, Calcium 8.3 L 05/09/23 08:17: POC Glucose 207 H 05/09/23 11:55: POC Glucose 164 H Micro: Microbiology 05/05/23 12:02 Blood Culture (Wb) - Anticubital Left Blood Culture - Preliminary No growth in 48 hours. 05/05/23 12:00 Blood Culture (Wb) - Anticubital Right Blood Culture - Preliminary No growth in 48 hours. 05/05/23 12:55 Urine, Catheterized Urine Culture - Final Culture exhibits no growth. 05/05/23 12:55 Urine Catheter - Hubbard Legionella Antigen - Final 05/05/23 12:55 Urine Catheter - Hubbard Streptococcus pneumoniae Antigen (M - Final 05/05/23 12:20 Mucosa - Nose SARS-CoV-2, Influenza & RSV (PCR) - Final 05/05/23 12:25 Stool Stool Occult Blood (JOANA) - Final Occult Blood Positive Physical Exam Const alert, no apparent distress and average body habitus Constitutional Narrative: Elderly male, chronically ill-appearing, awake and alert appearing today, answers questions with short appropriate responses, cognition and speech remain delayed, resting comfortably in bed and in no acute distress. General Appearance: cooperative and comfortable HEENT normocephalic, head/scalp atraumatic, hearing grossly normal bilaterally and nasal mucous membranes and turbinates normal Eyes PERRL, EOMs intact bilaterally and conjunctivae normal Chest inspection of chest normal Resp normal respiratory effort and no use of accessory muscles Resp Narrative: Breathing comfortably on room air with good oxygen saturations. Mildly decreased breath sounds bilaterally, worse in right base. No wheezing or crackles noted. Cardio regular rate, regular rhythm, no murmurs and peripheral pulses 2+ throughout GI normal to inspection, nondistended, normoactive bowel sounds, soft to palpation,non-tender and non-distended Extremity normal to inspection and no pedal edema Skin no rashes or lesions noted Neuro Neuro Narrative: Residual right-sided hemiplegia noted. Sensorium / Orientation: alert Psych mental status grossly normal Assessment & Plan Assessment/Plan (1) Pneumonia: (2) Acute hypoxemic respiratory failure: (3) Sepsis without septic shock: PLAN: Plan Patient is a 63-year-old male who presented to [facility] ED on 06/01/2023 with shortness of breath. 1. Acute hypoxic respiratory failure and sepsis without shock secondary to community-acquired pneumonia with unknown organism, improving Chest x-ray on admit showed right lower lobe pneumonia, CT chest showed dense right lower lobe consolidation with some additional patchy airspace disease in right upper and left lower lobes consistent with pneumonia. Required up to 15 Lof oxygen on admission. Met sepsis criteria on admission with leukocytosis, fever, tachycardia, tachypnea, YADI, altered mental status as noted below. Given1 L normal saline on admission with maintenance fluids after this, with some improvement in tachycardia, blood pressure stable throughout. Did not give full30 cc/kg for sepsis fluids given respiratory failure. Respiratory panel negative. Urine antigens negative. Unable to produce sputum culture. Blood culturespending. ? Industrial Insulator followed. Stable on room air on 05/05, transferred out of ICU. Continue IV vancomycin for antibiotic coverage for now. Continue scheduled bronchodilators. Tube feeds restarted on 05/05 without issue. 2. Acute metabolic encephalopathy, resolved ? Presumed secondary to respiratory failure and sepsis as noted above. CT head on admit with no acute findings. Mental status improved to baseline on 05/06. 3. Suspected YADI, resolved ? Creatinine 1.70 on admit, baseline creatinine unknown. Creatinine improving with IV fluids and restarting tube feeds, most recent creatinine 0.77 on 05/07 with adequate urine output. Monitor daily BMP and urine output. 4. Recent history of stroke with right-sided hemiplegia and dysphagia ? Had recent stroke in 12/2022. Has been residing at skilled nurse facility since then. Has PEG tube in place for tube feeds. ? Nutrition following, tube feeds restarted on 05/05 without issue. ? GI following, EGD on 05/06 showed erosive esophagitis with bleeding that was treated with heater probe, otherwise showed an intact gastrostomy with patent G-tube characterized by healthy-appearing mucosa. ? Speech therapy following. Patient completed MBSS on 05/07, okay for diet with mechanical soft textures and thin liquids with small bites, small sips, slow rate and one-to-one close supervision. ? PT/OT/case management following. [facility] for SN[facility] as he had a poor experience there. Medically ready for discharge on 05/07, awaiting placement. 5. Hypernatremia, improved ? Sodium 150 on 05/06, chloride 124. Presumed secondary to dehydration from n.p.o. status. Slightly increased to 200 ml of free water given with each tube feed bolus every 4 hours on 05/06, repeat sodium 143 on 05/07. Continue free water with tube feeds, will discuss with nutrition on amount of free water given as needed. Monitor daily sodium. 6. Acute on chronic anemia ? Hemoglobin 12.9 on admit, decreased to 10.2 after IV fluids. No previously known baseline. Hemoglobin slowly downtrended during admission with eliana at 8.9 on 05/06. GI following, s/p EGD on 05/06 that showed grade D erosive esophagitis with bleeding that was treated, no ulcers noted. Repeat hemoglobin 9.5 on 05/07. Continue p.o. PPI twice daily. Monitor hemoglobin daily. Chronic medical conditions: ? Hypertension: Continue to hold home Coreg and losartan for now, restart when able. ? Type 2 diabetes mellitus: Continue home Lantus 16 units at night with sliding scale insulin with tube feeds, adjust as needed. ? Hyperlipidemia: Continue home statin. ? GERD: Increased to p.o. PPI twice daily as noted above. DVT prophylaxis: Lovenox CODE STATUS: Full code, unverified Expected disposition: SNF, medically ready for discharge on 05/07, awaiting placement Total clinical time spent by myself addressing the patient's medical issues, reviewing all the data, and collaborating with patient's care team: 35 minutes. Charges/Coding Visit Charges Inpatient E&M: 98996 Subs Hosp L2 05/09/23 1714 <Electronically signed by Roverto Zavala DO> Cosigner Signature (if applicable): CC: ~ Signed [facility] Work Phone: 1(535) 150-624703-06-2024 Progress note Author Ryan Larios [facility] May 08, 2023 7:35pm Note Date/Time May 08, 2023 7:34 pm [facility] Medical Records Department [address] [place] [address] Progress Note - GI 05/08/23 193 MR#: [id number] Acct: [id number] Name: DREA COPELAND Rep #:[id number] : 1960 63 From: Ryan Larios DO PCP: KATIE Jiménez Status :ADM IN Location: [place] [address] Subjective Subjective Patient underwent an upper endoscopy yesterday. He tolerated procedure without any problems. There was no acute pathology seen in the patient's esophagus thatwould contribute to his ongoing Dysphagia except for severe erosive esophagitis.. Patient is scheduled to get follow-up swallowing evaluation today. Objective Data Objective Data Vital Signs: Vital Signs Temp Pulse Resp BP Pulse Ox O2 Del Method O2 Flow Rate 97.9 F 92 14 155/82 H 97 Room Air 4 05/08/23 16:00 05/08/23 16:00 05/08/23 16:00 05/08/23 16:05/08/23 16:05/08/23 16:05/07/23 18:20 Oxygen Flow Rate (L/min) 4 Oxygen Delivery Method Room Air Weight: 166 lb 0.129 oz Body Mass Index (BMI) 22.5 Intake & Output: Intake and Output for Last 24 Hours 05/06/23 05/07/23 05/08/23 23:59 23:59 23:59 Intake Total 2049.66 / 2049.66 1848.00 / 1848.00 2130.17 / 2130.17 Output Total 1650 / 1650 1700 / 2550 2850 / 2850 Balance 399.66 / 399.66 148.00 / -702.00 -719.83 / -719.83 Lab / Micro Data 05/08/23 10:00 05/08/23 10:00 Labs: Laboratory Results - last 24 hr 05/07/23 21:27: POC Glucose 215 H 05/08/23 01:07: POC Glucose 238 H 05/08/23 04:26: POC Glucose 226 H 05/08/23 08:29: POC Glucose 196 H 05/08/23 10:00: WBC 7.6, RBC 3.52 L, Hgb 9.5 L, Hct 31.8 L, MCV 90.3, MCH 27.0, MCHC 29.9 L D, RDW Std Deviation 41.8, RDW Coeff of Warren 12.7, Plt Count 133 L, MPV 12.9 H, Sodium 143, Potassium 3.6, Chloride 119 H, Carbon Dioxide 19.0 L, Anion Gap 5, BUN 19 H, Creatinine 0.77, Estim Creat Clear Calc 104.58, Est GFR (MDRD) Af Amer 132, Est GFR (MDRD) Non-Af 109, BUN/Creatinine Ratio 24.7 H, Glucose 219 H, Calcium 8.5 05/08/23 11:58: POC Glucose 226 H 05/08/23 14:00: Vancomycin Trough 10.8 05/08/23 16:04: POC Glucose 238 H Micro: Microbiology 05/05/23 12:02 Blood Culture (Wb) - Anticubital Left Blood Culture - Preliminary No growth in 48 hours. 05/05/23 12:00 Blood Culture (Wb) - Anticubital Right Blood Culture - Preliminary No growth in 48 hours. 05/05/23 12:55 Urine, Catheterized Urine Culture - Final Culture exhibits no growth. 05/05/23 12:55 Urine Catheter - Hubbard Legionella Antigen - Final 05/05/23 12:55 Urine Catheter - Hubbard Streptococcus pneumoniae Antigen (M - Final 05/05/23 12:20 Mucosa - Nose SARS-CoV-2, Influenza & RSV (PCR) - Final 05/05/23 12:25 Stool Stool Occult Blood (JOANA) - Final Occult Blood Positive Physical Exam Const alert, no apparent distress and average body habitus Constitutional Narrative: Elderly male, chronically ill-appearing, more awake and alert appearing today, answers questions with short appropriate responses, cognition and speech remain delayed, resting comfortably in bed and in no acute distress. General Appearance: cooperative and comfortable HEENT normocephalic, head/scalp atraumatic, hearing grossly normal bilaterally and nasal mucous membranes and turbinates normal Eyes PERRL, EOMs intact bilaterally and conjunctivae normal Chest inspection of chest normal Resp normal respiratory effort and no use of accessory muscles Resp Narrative: Breathing comfortably on room air with good oxygen saturations. Mildly decreased breath sounds bilaterally, worse in right base. No wheezing or crackles noted. Cardio regular rate, regular rhythm, no murmurs and peripheral pulses 2+ throughout GI normal to inspection, nondistended, normoactive bowel sounds, soft to palpation,non-tender and non-distended Extremity normal to inspection and no pedal edema Skin no rashes or lesions noted Neuro Neuro Narrative: Residual right-sided hemiplegia noted. Sensorium / Orientation: alert Psych mental status grossly normal Assessment & Plan Assessment/Plan (1) Acute hypoxemic respiratory failure: (2) Pneumonia: PLAN: Plan # Dysphagia with nausea vomiting and dysphagia * Differential diagnosis does include esophageal dysphagia secondary to previous CVA. He likely has oropharyngeal dysphagia also. He did have some hematemesis that is possibly secondary to tube feedings, not through the esophagus particularly if he is not at a 90 degree angle. Recommendations to evaluate his upper GI tract. His bowel return was explained alternatives, risk, benefits include nondistended bleeding, infection, sepsis, perforation, need for warehouse logistics manager and . He will have an ASA of 3. * #Acute hypoxic respiratory failure due to community acquired pneumonia * admitted with a complaint of shortness of breath. * CXR showed right lower lobe pneumonia * Currently being followed by pulmonary/ intensive care * #Lactic acidosis:lactic acid is 3. Likely due to hypoxia. Should resolve with hydration and as respiratory status improves #History of stroke: has right sided hemiplegia. Will monitor. On aspirin, plavixand carvedilol. Hold carvedilol due to hypotension #Hypertension: On losartan and carvedilol. Will hold these due to hypotension. #Type 2 diabetes mellitus: On Lantus 16 units twice daily. Insulin sliding scale. Accu-Cheks ACHS. #DVT prophylaxis; lovenox Code status: full code- unverified. Patient unable to communicate, but per ED doctor he spoke to patient's mother who wanted him to be full code. 05/08/23-EGD findings :LA Grade D (one or more mucosal breaks involving at least 75% of esophageal circumference) esophagitis with bleeding was found 34 to 39 cm from the incisors. Biopsies for histology were taken with a cold forceps for evaluation of celiac disease. Verification of patient identification for the specimen was done. Estimated blood loss was minimal. Coagulation for hemostasis using monopolar probe was successful. Estimated blood loss was minimal. There was evidence of an intact gastrostomy with a patent G-tube present in the gastric body. This was characterized by healthy appearing mucosa. No gross lesions were noted in the duodenal bulb. Impression: - LA Grade D erosive esophagitis with bleeding. Biopsied. Treated with a monopolar probe. - Intact gastrostomy with a patent G-tube present characterized by healthy appearing mucosa. - No gross lesions in the duodenal bulb. Recommendation: - Return patient to hospital phan for ongoing care. - Resume previous diet. - Continue present medications. - Await pathology results. - Repeat upper endoscopy in 3 months for surveillance -Protonix 40 mg twice daily via PEG Charges/Coding Visit Charges Inpatient E&M: 15115 [facility] Hosp L3 05/08/231934 <Electronically signed by Ryan Friend DO> Cosigner Signature (if applicable): CC: ~ Signed [facility] Work Phone: 1(883) 401-253403-06-2024 Progress note Author Roverto Zavala [facility] May 08, 2023 3:37pm Note Date/Time May 08, 2023 1:22 pm [facility] Medical Records Department [address] [address] Progress Note - Hospitalist 05/08/23 1322 MR#: [id number] Acct: [id number] Name: DREA COPELAND Rep #:[id number] : 1960 63 From: Roverto pérez DO PCP: KATIE Jiménez Status :ADM IN Location: [place] [address] Reason for Visit Reason for Visit: Diagnoses Sepsis, unspecified organism (05/05/23) Pneumonia, unspecified organism (05/05/23) Acute respiratory failure with hypoxia (05/05/23) Subjective Subjective No acute events overnight. Patient seen at bedside this morning. Sitting up comfortably in bed, in no acute distress. Appears similar to yesterday, more awake and alert and appears to have a good level of energy this morning. Patient's primary concern is being able to eat and drink if able. Patient notably had an EGD done yesterday that showed no concerning findings, and plan was for MBSS today to determine patient's swallowing capabilities. Patient denied any other acute concerns this morning. Objective Data Objective Data Vital Signs: Vital Signs Temp Pulse Resp BP Pulse Ox O2 Del Method O2 Flow Rate 98.1 F 91 14 145/82 H 97 Room Air 4 05/08/23 10:12 05/08/23 10:12 05/08/23 10:12 05/08/23 10:12 05/08/23 10:12 05/08/23 10:12 05/07/23 18:20 Oxygen Flow Rate (L/min) 4 Oxygen Delivery Method Room Air Weight: 75.3 kg Body Mass Index (BMI) 22.5 Intake & Output: Intake and Output for Last 24 Hours 05/06/23 05/07/23 05/08/23 23:59 23:59 23:59 Intake Total 2049.66 / 2049.66 1848.00 / 1848.00 1570.17 / 1570.17 Output Total 1650 / 1650 1700 / 2550 2200 / 2200 Balance 399.66 / 399.66 148.00 / -702.00 -629.83 / -629.83 Lab / Micro Data 05/08/23 10:00 05/08/23 10:00 Labs: Laboratory Results - last 24 hr 05/07/23 13:37: POC Glucose 168 H 05/07/23 19:03: POC Glucose 161 H 05/07/23 21:27: POC Glucose 215 H 05/08/23 01:07: POC Glucose 238 H 05/08/23 04:26: POC Glucose 226 H 05/08/23 08:29: POC Glucose 196 H 05/08/23 10:00: WBC 7.6, RBC 3.52 L, Hgb 9.5 L, Hct 31.8 L, MCV 90.3, MCH 27.0, MCHC 29.9 L D, RDW Std Deviation 41.8, RDW Coeff of Warren 12.7, Plt Count 133 L, MPV 12.9 H, Sodium 143, Potassium 3.6, Chloride 119 H, Carbon Dioxide 19.0 L, Anion Gap 5, BUN 19 H, Creatinine 0.77, Estim Creat Clear Calc 104.58, Est GFR (MDRD) Af Amer 132, Est GFR (MDRD) Non-Af 109, BUN/Creatinine Ratio 24.7 H, Glucose 219 H, Calcium 8.5 05/08/23 11:58: POC Glucose 226 H Micro: Microbiology 05/05/23 12:02 Blood Culture (Wb) - Anticubital Left Blood Culture - Preliminary No growth in 48 hours. 05/05/23 12:00 Blood Culture (Wb) - Anticubital Right Blood Culture - Preliminary No growth in 48 hours. 05/05/23 12:55 Urine, Catheterized Urine Culture - Final Culture exhibits no growth. 05/05/23 12:55 Urine Catheter - Hubbard Legionella Antigen - Final 05/05/23 12:55 Urine Catheter - Hubbard Streptococcus pneumoniae Antigen (M - Final 05/05/23 12:20 Mucosa - Nose SARS-CoV-2, Influenza & RSV (PCR) - Final 05/05/23 12:25 Stool Stool Occult Blood (JOANA) - Final Occult Blood Positive Physical Exam Const alert, no apparent distress and average body habitus Constitutional Narrative: Elderly male, chronically ill-appearing, awake and alert appearing today, answers questions with short appropriate responses, cognition and speech remain delayed, resting comfortably in bed and in no acute distress. General Appearance: cooperative and comfortable HEENT normocephalic, head/scalp atraumatic, hearing grossly normal bilaterally and nasal mucous membranes and turbinates normal Eyes PERRL, EOMs intact bilaterally and conjunctivae normal Chest inspection of chest normal Resp normal respiratory effort and no use of accessory muscles Resp Narrative: Breathing comfortably on room air with good oxygen saturations. Mildly decreased breath sounds bilaterally, worse in right base. No wheezing or crackles noted. Cardio regular rate, regular rhythm, no murmurs and peripheral pulses 2+ throughout GI normal to inspection, nondistended, normoactive bowel sounds, soft to palpation,non-tender and non-distended Extremity normal to inspection and no pedal edema Skin no rashes or lesions noted Neuro Neuro Narrative: Residual right-sided hemiplegia noted. Sensorium / Orientation: alert Psych mental status grossly normal Assessment & Plan Assessment/Plan (1) Pneumonia: (2) Acute hypoxemic respiratory failure: (3) Sepsis without septic shock: PLAN: Plan Patient is a 63-year-old male who presented to [facility] ED on 06/01/2023 with shortness of breath. 1. Acute hypoxic respiratory failure and sepsis without shock secondary to community-acquired pneumonia with unknown organism, improving Chest x-ray on admit showed right lower lobe pneumonia, CT chest showed dense right lower lobe consolidation with some additional patchy airspace disease in right upper and left lower lobes consistent with pneumonia. Required up to 15 Lof oxygen on admission. Met sepsis criteria on admission with leukocytosis, fever, tachycardia, tachypnea, YADI, altered mental status as noted below. Given1 L normal saline on admission with maintenance fluids after this, with some improvement in tachycardia, blood pressure stable throughout. Did not give full30 cc/kg for sepsis fluids given respiratory failure. Respiratory panel negative. Urine antigens negative. Unable to produce sputum culture. Blood cultures pending. ? Industrial Insulator followed. Stable on room air on 05/05, transferred out of ICU. Continue IV vancomycin and cefepime for antibiotic coverage for now. Continue scheduled bronchodilators. Tube feeds restarted on 05/05 without issue. 2. Acute metabolic encephalopathy, resolved ? Presumed secondary to respiratory failure and sepsis as noted above. CT head on admit with no acute findings. Mental status improved to baseline on 05/06. 3. Suspected YADI, resolved ? Creatinine 1.70 on admit, baseline creatinine unknown. Creatinine improving with IV fluids and restarting tube feeds, most recent creatinine 0.77 on 05/07 with adequate urine output. Monitor daily BMP and urine output. 4. Recent history of stroke with right-sided hemiplegia and dysphagia ? Had recent stroke in 12/2022. Has been residing at skilled nurse facility since then. Has PEG tube in place for tube feeds. ? Nutrition following, tube feeds restarted on 05/05 without issue. ? GI following, EGD on 05/06 showed erosive esophagitis with bleeding that was treated with heater probe, otherwise showed an intact gastrostomy with patent G-tube characterized by healthy-appearing mucosa. ? Speech therapy following. Patient completed MBSS on 05/07, okay for diet with mechanical soft textures and thin liquids with small bites, small sips, slow rate and one-to-one close supervision. ? PT/OT/case management following. [facility] SN[facility] as he had a poor experience there. Medically ready for discharge on 05/07, awaiting placement. 5. Hypernatremia, improved ? Sodium 150 on 05/06, chloride 124. Presumed secondary to dehydration from n.p.o. status. Slightly increased to 200 ml of free water given with each tube feed bolus every 4 hours on 05/06, repeat sodium 143 on 05/07. Continue free water with tube feeds, will discuss with nutrition on amount of free water given as needed. Monitor daily sodium. 6. Acute on chronic anemia ? Hemoglobin 12.9 on admit, decreased to 10.2 after IV fluids. No previously known baseline. Hemoglobin slowly downtrended during admission with eliana at 8.9 on 05/06. GI following, s/p EGD on 05/06 that showed grade D erosive esophagitis with bleeding that was treated, no ulcers noted. Repeat hemoglobin 9.5 on 05/07. Continue p.o. PPI twice daily. Monitor hemoglobin daily. Chronic medical conditions: ? Hypertension: Continue to hold home Coreg and losartan for now, restart when able. ? Type 2 diabetes mellitus: Continue home Lantus 16 units at night with sliding scale insulin with tube feeds, adjust as needed. ? Hyperlipidemia: Continue home statin. ? GERD: Increased to p.o. PPI twice daily as noted above. DVT prophylaxis: Lovenox CODE STATUS: Full code, unverified Expected disposition: SNF, medically ready for discharge on 05/07, awaiting placement. Total clinical time spent by myself addressing the patient's medical issues, reviewing all the data, and collaborating with patient's care team: 35 minutes. Charges/Coding Visit Charges Inpatient E&M: 17052 Subs Hosp L2 03/06/24 1537 <Electronically signed by Roverto Zavala DO> Cosigner Signature (if applicable): CC: ~ Signed [facility] Work Phone: 1(459) 867-563503-06-2024 Procedure [facility] 05-07-2023 Consult note Author Ryan Larios [facility] May 07, 2023 6:39pm Note Date/Time May 07, 2023 6:34 pm [facility] Medical Records Department [address] [address] Consultation - GI 05/06/23 1834 MR#: [id number] Acct: [id number] Name: DREA COPELAND Rep #:[id number] : 1960 63 From: Ryan Larios DO PCP: KATIE Jiménez Status :ADM IN Location: [place] [address] HPI Consult Data Date of Consult: 05/06/23 HPI Narrative Reason for Consultation: GI bleed HPI Narrative: DREA COPELAND, is a 63 M who presents via the ED on 05/05/2023 with a PMH as outlined with a complaint of shortness of breath. He was brought from his care home facility. He was noted to be short of breath and somnolent in his SNF. Patient was alert but could not give much of a history. Vitals in the ED were BP of 94/60, NC of 102, RR of 25 and oxygen sats of 100% on 15L of high flow oxygen. CBC showed hemoglobin of 12.9 with WBC of 15.2 withplatelets of 219. Chemistry shows sodium of 143 with potassium of 4.7 and creatinine of 1.7. Lactic acid was 3 and calcium was 10.1. Urinalysis showed 3+ bacteria. CXR showed a right lower lobe pneumonia and brain CT showed no acute intracranial abnormality. He is being admitted to be managed for acute hypoxic respiratory failure due to community acquired pneumonia. I was asked to see him because of vomiting, aspiration pneumonia and esophageal dysphagia. Patient cannot give a history due to his previous history of CVA so most history is obtained from the chart. [facility] Medical History (Updated 05/06/23 @ 15:[address] 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 Nicotine dependence, other tobacco product, uncomplicated Other hereditary and idiopathic neuropathies Type 2 diabetes mellitus without complications Vitamin D deficiency, unspecified Home Medications ammonium lactate 12 % topical cream 1 applic topical BID PRN dry skin 05/05/23 [History Last Taken Unknown] aspirin 81 mg chewable tablet 1 tab feeding tube DAILY CARDIOVASCULAR 05/05/23 [History Last Taken Unknown] atorvastatin 80 mg tablet 80 mg feeding tube DAILY CHOLESTEROL 05/05/23 [History Last Taken Unknown] carvedilol 25 mg tablet 25 mg feeding tube BID HIGH BLOOD PRESSURE 05/05/23 [History Last Taken Unknown] cholecalciferol (vitamin D3) 50 mcg (2,000 unit) capsule 50 mcg feeding tube DAILY VIT D DEFICIENCY 05/05/23 [History Last Taken Unknown] insulin glargine 100 unit/mL subcutaneous solution 16 unit subcut QPM DIABETES 05/05/23 [History Last Taken Unknown] losartan 50 mg tablet 50 mg feeding tube DAILY HIGH BLOOD PRESSURE 05/05/23 [History Last Taken Unknown] multivitamin with iron-mineral 1 tab feeding tube DAILY VITAMIN 05/05/23 [History Last Taken Unknown] thiamine HCl (vitamin B1) 100 mg tablet 100 mg feeding tube DAILY VITAMIN B DIFICIENCY 05/05/23 [History Last Taken Unknown] Allergy/AdvReac Type Severity Reaction Status Date / Time No Known Allergies Allergy Verified 05/05/23 11:58 Social History Smoking Status: Former smoker ROS Review of Systems ROS Unobtainable: due to encephalopathy Physical Exam Const alert, no apparent distress and average body habitus Constitutional Narrative: Elderly male, chronically ill-appearing, more awake and alert appearing today, answers questions with short appropriate responses, cognition and speech remain delayed, resting comfortably in bed and in no acute distress. General Appearance: cooperative and comfortable HEENT normocephalic, head/scalp atraumatic, hearing grossly normal bilaterally and nasal mucous membranes and turbinates normal Eyes PERRL, EOMs intact bilaterally and conjunctivae normal Chest inspection of chest normal Resp normal respiratory effort and no use of accessory muscles Resp Narrative: Breathing comfortably on room air with good oxygen saturations. Mildly decreased breath sounds bilaterally, worse in right base. No wheezing or crackles noted. Cardio regular rate, regular rhythm, no murmurs and peripheral pulses 2+ throughout GI normal to inspection, nondistended, normoactive bowel sounds, soft to palpation,non-tender and non-distended Extremity normal to inspection and no pedal edema Skin no rashes or lesions noted Neuro Neuro Narrative: Residual right-sided hemiplegia noted. Sensorium / Orientation: alert Psych mental status grossly normal Lab / Micro Data 05/07/23 01:33 05/07/23 01:33 Labs: Laboratory Results - last 24 hr 05/06/23 16:42: POC Glucose 249 H 05/06/23 19:46: POC Glucose 269 H 05/07/23 00:26: POC Glucose 214 H 05/07/23 01:33: WBC 8.6, RBC 3.21 L, Hgb 8.9 L, Hct 28.2 L, MCV 87.9, MCH 27.7, MCHC 31.6 L, RDW Std Deviation 40.7, RDW Coeff of Warren 12.7, Plt Count 150, MPV 12.3 H, Sodium 150 H, Potassium 3.7, Chloride 124 H, Carbon Dioxide 24.0, Anion Gap 2 L, BUN 47 H, Creatinine 1.07, Estim Creat Clear Calc 77.56, Est GFR (MDRD)Af Amer 90, Est GFR (MDRD) Non-Af 74, BUN/Creatinine Ratio 43.9 H, Glucose 235 H, Hemoglobin A1c 7.4 H, Calcium 9.2, Vancomycin Trough 12.2 05/07/23 03:57: POC Glucose 219 H 05/07/23 09:26: POC Glucose 234 H 05/07/23 13:37: POC Glucose 168 H Micro: Microbiology 05/05/23 12:02 Blood Culture (Wb) - Anticubital Left Blood Culture - Preliminary No growth in 48 hours. 05/05/23 12:00 Blood Culture (Wb) - Anticubital Right Blood Culture - Preliminary No growth in 48 hours. 05/05/23 12:55 Urine, Catheterized Urine Culture - Final Culture exhibits no growth. Assessment & Plan Assessment/Plan (1) Acute hypoxemic respiratory failure: (2) Pneumonia: PLAN: Plan # Dysphagia with nausea vomiting and dysphagia * Differential diagnosis does include esophageal dysphagia secondary to previous CVA. He likely has oropharyngeal dysphagia also. He did have some hematemesis that is possibly secondary to tube feedings, not through the esophagus particularly if he is not at a 90 degree angle. Recommendations to evaluate his upper GI tract. His bowel return was explained alternatives, risk, benefits include nondistended bleeding, infection, sepsis, perforation, need for warehouse logistics manager and . He will have an ASA of 3. * #Acute hypoxic respiratory failure due to community acquired pneumonia * admitted with a complaint of shortness of breath. * CXR showed right lower lobe pneumonia * Currently being followed by pulmonary/ intensive care * #Lactic acidosis:lactic acid is 3. Likely due to hypoxia. Should resolve with hydration and as respiratory status improves #History of stroke: has right sided hemiplegia. Will monitor. On aspirin, plavixand carvedilol. Hold carvedilol due to hypotension #Hypertension: On losartan and carvedilol. Will hold these due to hypotension. #Type 2 diabetes mellitus: On Lantus 16 units twice daily. Insulin sliding scale. Accu-Cheks ACHS. #DVT prophylaxis; lovenox Code status: full code- unverified. Patient unable to communicate, but per ED doctor he spoke to patient's mother who wanted him to be full code. Charges/Coding Visit Charges Inpatient E&M: 72800 Init Hosp L3 05/07/231838 <Electronically signed by Ryan Larios DO> Cosigner Signature (if applicable): CC: KATIE Monte; Dr. Parish Sanchez MD; Dr. Brain Franks MD; Dr. Rafael Mahan DO; Dr. Vinnie Castillo MD; Dr. Max Mata MD; Dr. Germania Moore MD; Dr. López Pena MD; Dr. Abril Barrera MD; Dr. Michael Mansfield MD; Dr. Augie Davila MD; Dr. Jd Goznalez MD; Dr. Vaughn Arnold MD;Dr. Elvira Jones MD~ Signed [facility] Work Phone: [phone]) 816-530703-05-2024 Procedure [facility] 05-07-2023 Procedure [facility]03-05-2024 Progress note Author Roverto Zavala [facility] May 07, 2023 1:35pm Note Date/Time May 07, 2023 10:1 3am [facility] Medical Records Department [address] [place] [address] Progress Note - Hospitalist 05/07/23 1013 MR#: [id number] Acct: [id number] Name: DREA COPELAND Rep #:[id number] : 1960 63 From: Roverto pérez DO PCP: KATIE Jiménez Status :ADM IN Location: [place] [address] Reason for Visit Reason for Visit: Diagnoses Sepsis, unspecified organism (05/05/23) Pneumonia, unspecified organism (05/05/23) Acute respiratory failure with hypoxia (05/05/23) Subjective Subjective No acute events overnight. Patient seen at bedside this morning. Patient appeared more awake and alert this morning than previous days. Was making appropriate eye contact and answering questions with short appropriate responses. Primary concern this morning was that his mouth felt dry and he was hoping to drink water if possible, however I noted to patient that he remains n.p.o. at this time given history of dysphagia in setting of previous stroke. He otherwise denies any acute pain or discomfort. No other acute concerns. Objective Data Objective Data Vital Signs: Vital Signs Temp Pulse Resp BP Pulse Ox O2 Del Method O2 Flow Rate 99.0 F 97 16 141/77 H 95 Room Air 2 05/07/23 09:23 05/07/23 09:23 05/07/23 09:23 05/07/23 09:23 05/07/23 09:23 05/07/23 09:23 05/06/23 07:02 Oxygen Flow Rate (L/min) 2 Oxygen Delivery Method Room Air Weight: 75.9 kg Body Mass Index (BMI) 22.6 Intake & Output: Intake and Output for Last 24 Hours 05/05/23 05/06/23 05/07/23 23:59 23:59 23:59 Intake Total 4634.17 / 4634.17 2049.66 / 2049.66 1033.00 / 1033.00 Output Total 800 / 1150 1650 / 1650 900 / 900 Balance 3834.17 / 3484.17 399.66 / 399.66 133.00 / 133.00 Lab / Micro Data 05/07/23 01:33 05/07/23 01:33 Labs: Laboratory Results - last 24 hr 05/06/23 10:10: WBC 11.6 H, RBC 3.43 L, Hgb 9.5 L, Hct 30.2 L, MCV 88.0, MCH 27.7, MCHC 31.5 L, RDW Std Deviation 40.7, RDW Coeff of [place] 12.6, Plt Count 159,MPV 12.4 H 05/06/23 11:03: POC Glucose 244 H 05/06/23 16:42: POC Glucose 249 H 05/06/23 19:46: POC Glucose 269 H 05/07/23 00:26: POC Glucose 214 H 05/07/23 01:33: WBC 8.6, RBC 3.21 L, Hgb 8.9 L, Hct 28.2 L, MCV 87.9, MCH 27.7, MCHC 31.6 L, RDW Std Deviation 40.7, RDW Coeff of [place] 12.7, Plt Count 150, MPV 12.3 H, Sodium 150 H, Potassium 3.7, Chloride 124 H, Carbon Dioxide 24.0, Anion Gap 2 L, BUN 47 H, Creatinine 1.07, Estim Creat Clear Calc 77.56, Est GFR (MDRD)Af Amer 90, Est GFR (MDRD) Non-Af 74, BUN/Creatinine Ratio 43.9 H, Glucose 235 H, Hemoglobin A1c 7.4 H, Calcium 9.2, Vancomycin Trough 12.2 05/07/23 03:57: POC Glucose 219 H 05/07/23 09:26: POC Glucose 234 H Micro: Microbiology 05/05/23 12:02 Blood Culture (Wb) - Anticubital Left Blood Culture - Preliminary No growth in 48 hours. 05/05/23 12:00 Blood Culture (Wb) - Anticubital Right Blood Culture - Preliminary No growth in 48 hours. 05/05/23 12:55 Urine, Catheterized Urine Culture - Final Culture exhibits no growth. 05/05/23 12:55 Urine Catheter - Hubbard Legionella Antigen - Final 05/05/23 12:55 Urine Catheter - Hubbard Streptococcus pneumoniae Antigen (M - Final 05/05/23 12:20 Mucosa - Nose SARS-CoV-2, Influenza & RSV (PCR) - Final 05/05/23 12:25 Stool Stool Occult Blood (JOANA) - Final Occult Blood Positive Physical Exam Const alert, no apparent distress and average body habitus Constitutional Narrative: Elderly male, chronically ill-appearing, more awake and alert appearing today, answers questions with short appropriate responses, cognition and speech remain delayed, resting comfortably in bed and in no acute distress. General Appearance: cooperative and comfortable HEENT normocephalic, head/scalp atraumatic, hearing grossly normal bilaterally and nasal mucous membranes and turbinates normal Eyes PERRL, EOMs intact bilaterally and conjunctivae normal Chest inspection of chest normal Resp normal respiratory effort and no use of accessory muscles Resp Narrative: Breathing comfortably on room air with good oxygen saturations. Mildly decreased breath sounds bilaterally, worse in right base. No wheezing or crackles noted. Cardio regular rate, regular rhythm, no murmurs and peripheral pulses 2+ throughout GI normal to inspection, nondistended, normoactive bowel sounds, soft to palpation,non-tender and non-distended Extremity normal to inspection and no pedal edema Skin no rashes or lesions noted Neuro Neuro Narrative: Residual right-sided hemiplegia noted. Sensorium / Orientation: alert Psych mental status grossly normal Assessment & Plan Assessment/Plan (1) Pneumonia: (2) Acute hypoxemic respiratory failure: (3) Sepsis without septic shock: PLAN: Plan Patient is a 63-year-old male who presented to [facility] ED on 06/01/2023 with shortness of breath. 1. Acute hypoxic respiratory failure and sepsis without shock secondary to community-acquired pneumonia with unknown organism, improving Chest x-ray on admit showed right lower lobe pneumonia, CT chest showed dense right lower lobe consolidation with some additional patchy airspace disease in right upper and left lower lobes consistent with pneumonia. Required up to 15 Lof oxygen on admission. Met sepsis criteria on admission with leukocytosis, fever, tachycardia, tachypnea, YADI, altered mental status as noted below. Given1 L normal saline on admission with maintenance fluids after this, with some improvement in tachycardia, blood pressure stable throughout. Did not give full30 cc/kg for sepsis fluids given respiratory failure. Respiratory panel negative. Urine antigens negative. Unable to produce sputum culture. Blood cultures pending. ? Industrial Insulator followed. Stable on room air on 05/05, transferred out of ICU. Continue IV vancomycin and cefepime for antibiotic coverage for now. Continue scheduled bronchodilators. Tube feeds restarted on 05/05 without issue. 2. Acute metabolic encephalopathy, resolved ? Presumed secondary to respiratory failure and sepsis as noted above. CT head on admit with no acute findings. Mental status improved to baseline on 05/06. 3. Suspected YADI, improving ? Creatinine 1.70 on admit, baseline creatinine unknown. Creatinine improving with IV fluids and restarting tube feeds, most recent creatinine 1.07 on 05/06 Adequate urine output. Monitor daily BMP and urine output. 4. Recent history of stroke with right-sided hemiplegia and dysphagia ? Had recent stroke in 12/2022. Has been residing at skilled nurse facility since then. Has PEG tube in place for tube feeds. Nutrition consulted, ny quinteros tube feeds on 05/05 as noted above. Speech therapy following, planning forMBSS on 05/06 to further assess concerns for aspiration. 5. Hypernatremia ? Sodium 150 on 05/06, chloride 124. Presumed secondary to dehydration from n.p.o. status. Continue free water flushes of 175 mL every 4 hours with tube feeds for now, monitor daily sodium. Chronic medical conditions: ? Hypertension: Continue to hold home Coreg and losartan for now, restart when able. ? Type 2 diabetes mellitus: Continue home Lantus 16 units at night with sliding scale insulin with tube feeds, adjust as needed. ? Hyperlipidemia: Continue home statin. ? GERD: Continue home PPI. DVT prophylaxis: Lovenox CODE STATUS: Full code, unverified Expected disposition: Back to SNF, 2 to 3 days Total clinical time spent by myself addressing the patient's medical issues, reviewing all the data, and collaborating with patient's care team: 35 minutes. Charges/Coding Visit Charges Inpatient E&M: 34877 Subs Hosp L2 05/07/23 4158 <Electronically signed by Roverto Zavala DO> Cosigner Signature (if applicable): CC: ~ Signed [facility] Work Phone: 1(594) 560-570703-05-2024 Consult note Author Jonathan Regan [facility] May 07, 2023 2:19am Note Date/Time May 07, 2023 2:19 am [facility] Medical Records Department [address] [place] [address] Pharmacokinetic/Renal -Consult 05/07/236 MR#: [id number] Acct: [id number] Name: DREA COPELAND Rep #:[id number] : 1960 63 From: Jonathan Regan PCP: KATIE Jiménez Status :ADM IN Y Location: [place] [address] Consult Antibiotic Management Pharmacy has been consulted to manage selected antibiotic: Vancomycin Type of Intervention Type of Consult: Follow-up Suspected Infection Suspected Infection: Pneumonia Labs Labs: Sodium 150 mmol/L (136-145) H 05/07/23 01:33 Potassium 3.7 mmol/L (3.5-5.1) 05/07/23 01:33 Chloride 124 mmol/L (98-107) H 05/07/23 01:33 Carbon Dioxide 24.0 mmol/L (21.0-32.0) 05/07/23 01:33 Anion Gap 2 (5-15) L 05/07/23 01:33 BUN 47 mg/dL (7-18) H 05/07/23 01:33 Creatinine 1.07 mg/dL (0.70-1.30) 05/07/23 01:33 Est GFR (MDRD) Af Amer 90 mL/min (>60) 05/07/23 01:33 Est GFR (MDRD) Non-Af 74 mL/min (>60) 05/07/23 01:33 BUN/Creatinine Ratio 43.9 RATIO (10-20) H 05/07/23 01:33 Glucose 235 mg/dL (74-106) H 05/07/23 01:33 Vancomycin Trough 12.2 ug/mL (5.0-15.0) 05/07/23 01:33 Microbiology Microbiology: Microbiology 05/05/23 12:55 Urine Catheter - Hubbard Legionella Antigen - Final 05/05/23 12:55 Urine Catheter - Hubbard Streptococcus pneumoniae Antigen (M - Final 05/05/23 12:20 Mucosa - Nose SARS-CoV-2, Influenza & RSV (PCR) - Final 05/05/23 12:25 Stool Stool Occult Blood (JOANA) - Final Occult Blood Positive Dosing Weight Weight used for dosin kg Estimated Creatinine Clearance Estimated Creatinine Clearance: 78 Goal Trough Goal Trough: 15-20 mcg/mL Pharmacy Plan for Drug Dosing Pharmacy Plan for Drug Dosing: Vancomycin trough level of 12.2, drawn 12 hours post-dose, was below the target range of 15-20. Consistent with improvement in renal function (SCr from 1.70 to 1.07). Will increase dose to 750mg q12h, and will draw another trough level prior to fourth dose of the new regimen. Pharmacy Service will continue to monitor and adjust dosing as required. Follow-Up Labs Follow-Up Labs: Trough: Vancomycin Date/Time Labs Ordered Labs to be done on [date and time ordered]: 05/08/23 @1400 05/07/23 0219 <Electronically signed by Jonathan harvey> Date _ Jonathan Lara Signature (if applicable): Date CC: ~ Signed [facility] Work Phone: [phone]) 680-922903-04-2024 Progress [facility] May 06, 2023 3:59pm Note Date/Time May 06, 2023 1:05 pm [facility] Medical Records Department [address] [place] [address] Progress Note - Hospitalist 05/06/23 1304 MR#: [id number] Acct: [id number] Name: PEYMANDREA Compa Rep #:[id number] : 1960 63 From: Roverto pérez DO PCP: KATIE Jiménez Status :ADM IN Location: ICU ICU02-1 Reason for Visit Reason for Visit: Diagnoses Pneumonia, unspecified organism (05/05/23) Acute respiratory failure with hypoxia (05/05/23) Subjective Subjective No acute events overnight. Patient seen at bedside this morning. Patient was sleeping on arrival to the room. He denied any acute pain or discomfort. His cognition and speech are slowed but this is chronic for him after his stroke. He is currently breathing comfortably on room air with good oxygen saturations. No other acute concerns at this time. Objective Data Objective Data Vital Signs: Vital Signs Temp Pulse Resp BP Pulse Ox O2 Del Method O2 Flow Rate 99.7 F H 105 H 20 H 110/68 99 Room Air 2 05/06/23 12:00 05/06/23 12:21 05/06/23 12:21 05/06/23 12:00 05/06/23 12:00 05/06/23 12:00 05/06/23 07:00 Oxygen Flow Rate (L/min) 2 Oxygen Delivery Method Room Air Weight: 93 kg Body Mass Index (BMI) 27.8 Intake & Output: Intake and Output for Last 24 Hours 05/04/23 05/05/23 05/06/23 23:59 23:59 23:59 Intake Total 4634.17 / 4634.17 1497.16 / 1497.16 Output Total 800 / 1150 1250 / 1250 Balance 3834.17 / 3484.17 247.16 / 247.16 Lab / Micro Data 05/06/23 10:10 05/06/23 01:05 Labs: Laboratory Results - last 24 hr 05/05/23 12:49: Ethyl Alcohol < 3.0 05/05/23 12:55: Urine Color Yellow, Urine Clarity Cloudy, Urine pH 6.5, Ur Specific [place] 1.015, Urine Protein 100 H, Urine Glucose (UA) 50 H, Urine Ketones 5 H, Urine Occult Blood 250 H, Urine Nitrite Negative, Urine Bilirubin Negative, Urine Urobilinogen 1 H, Ur Leukocyte Esterase 25 H, Urine RBC 10-25 SEEN, Urine WBC 0- 5 SEEN, Ur Squamous Epith Cells 0 SEEN, Amorphous Sediment 4+,Urine Bacteria 0 SEEN, Urine Mucus 0 SEEN 05/05/23 13:58: POC Glucose 351 H 05/05/23 15:00: S.aureus Protein A PCR Cancelled 05/05/23 15:00: S.aureus Protein A PCR POSITIVE H, MRSA (PCR) Cancelled 05/05/23 15:00: MRSA (PCR) Negative 05/05/23 16:30: Lactic Acid 4.2 H* 05/05/23 17:50: WBC 13.4 H, RBC 3.83 L, Hgb 10.2 L, Hct 34.3 L, MCV 89.6, MCH 26.6 L, MCHC 29.7 L, RDW Std Deviation 39.8, RDW Coeff of [place] 12.4, Plt Count 155, MPV 12.5 H 05/05/23 22:07: POC Glucose 354 H 05/06/23 01:05: WBC 11.2 H, RBC 3.90 L, Hgb 10.5 L, Hct 34.8 L, MCV 89.2, MCH 26.9 L, MCHC 30.2 L, RDW Std Deviation 40.5, RDW Coeff of [place] 12.5, Plt Count 171, MPV 12.7 H, Immature Gran % (Auto) 0.300, Neut % (Auto) 71.9 H, Lymph % (Auto) 22.3, [place] % (Auto) 4.9, Eos % (Auto) 0.2, Baso % (Auto) 0.4, Absolute Neuts (auto) 8.1 H, Absolute Lymphs (auto) 2.50, Nucleated RBC % 0, Sodium 145, Potassium 3.9, Chloride 115 H, Carbon Dioxide 25.0, Anion Gap 5, BUN 70 H, Creatinine 1.48 H, Estim Creat Clear Calc 56.07, Est GFR (MDRD) Af Amer 62, Est GFR (MDRD) Non-Af 51 L, BUN/Creatinine Ratio 47.3 H, Glucose 400 H, Lactic Acid 3.3 H*, Calcium 9.1 05/06/23 10:10: WBC 11.6 H, RBC 3.43 L, Hgb 9.5 L, Hct 30.2 L, MCV 88.0, MCH 27.7, MCHC 31.5 L, RDW Std Deviation 40.7, RDW Coeff of [place] 12.6, Plt Count 159,MPV 12.4 H 05/06/23 11:03: POC Glucose 244 H Micro: Microbiology 05/05/23 12:55 Urine Catheter - Hubbard Legionella Antigen - Final 05/05/23 12:55 Urine Catheter - Hubbard Streptococcus pneumoniae Antigen (M - Final 05/05/23 12:20 Mucosa - Nose SARS-CoV-2, Influenza & RSV (PCR) - Final 05/05/23 12:25 Stool Stool Occult Blood (JOANA) - Final Occult Blood Positive Radiography Diagnostic Testing: Radiology Impression Brain CT 05/05/23 12:04 IMPRESSION: No acute intracranial abnormality. Chronic microvascular changes. Electronically Signed: Cricket Lancaster MD at 13:36 EST , Chest CT 05/06/23 00:04 IMPRESSION: Dense right lower lobe consolidation with some additional patchy airspace disease in the right upper and left lower lobes. Small right pleural effusion. Findings consistent with pneumonia. Electronically Signed: Tez Ibarra MD at 0:58 EST , Physical Exam Const alert, no apparent distress and average body habitus Constitutional Narrative: Elderly male, chronically ill-appearing, alert and answering questions with short responses, cognition and speech delayed, otherwise comfortably in bed and in no acute distress. General Appearance: cooperative and comfortable HEENT normocephalic, head/scalp atraumatic, hearing grossly normal bilaterally, nasal mucous membranes and turbinates normal and moist oral mucous membranes Eyes PERRL, EOMs intact bilaterally and conjunctivae normal Neck no lymphadenopathy and supple Lymph Lymphatic: no lymphadenopathy noted Chest inspection of chest normal Resp normal respiratory effort and no use of accessory muscles Resp Narrative: Breathing comfortably on room air with good oxygen saturations. Mildly decreased breath sounds bilaterally, worse in right base. No wheezing or crackles noted. Cardio no murmurs and peripheral pulses 2+ throughout Cardio Narrative: Tachycardic, regular rhythm. GI normal to inspection, nondistended, normoactive bowel sounds, soft to palpation,non-tender and non-distended Extremity normal to inspection and no pedal edema Skin no rashes or lesions noted Neuro Neuro Narrative: Residual right-sided hemiplegia noted. Sensorium / Orientation: alert Psych mental status grossly normal Assessment & Plan Assessment/Plan (1) Pneumonia: (2) Acute hypoxemic respiratory failure: (3) Sepsis without septic shock: PLAN: Plan Patient is a 63-year-old male who presented to [facility] ED on 06/01/2023 with shortness of breath. 1. Acute hypoxic respiratory failure and sepsis without shock secondary to community-acquired pneumonia with unknown organism, improving Chest x-ray on admit showed right lower lobe pneumonia, CT chest showed dense right lower lobe consolidation with some additional patchy airspace disease in right upper and left lower lobes consistent with pneumonia. Required up to 15 Lof oxygen on admission. Met sepsis criteria on admission with leukocytosis, fever, tachycardia, tachypnea, YADI, altered mental status as noted below. Given1 L normal saline on admission with maintenance fluids after this, with some improvement in tachycardia, blood pressure stable throughout. Did not give full30 cc/kg for sepsis fluids given respiratory failure. Respiratory panel negative. Urine antigens negative. Unable to produce sputum culture. Blood cultures pending. ? Industrial Insulator following. Stable on room air on 05/05, okay for transfer out of the ICU. Continue IV vancomycin and cefepime for antibiotic coverage. Continuescheduled bronchodilators. Okay to start baseline bolus tube feeding on 05/05 perintensivist. 2. Acute metabolic encephalopathy, improving ? Presumed secondary to respiratory failure and sepsis as noted above. CT head on admit with no acute findings. Mental status improving with treatment as above, continue to monitor. 3. Suspected YADI, improving ? Creatinine 1.70 on admit, baseline creatinine unknown. Creatinine improved to1.48 on 05/05 after IV fluids. Adequate urine output. Monitor daily BMP and urine output. 4. Recent history of stroke with right-sided hemiplegia and dysphagia ? Had recent stroke in 12/2022. Has been residing at skilled nurse facility since then. Has PEG tube in place for tube feeds. Nutrition consulted, okay toresume tube feeds on 05/05 as noted above. Chronic medical conditions: ? Hypertension: Continue to hold home Coreg and losartan for now, restart when able. ? Type 2 diabetes mellitus: Continue home Lantus 16 units at night with sliding scale insulin with tube feeds, adjust as needed. ? Hyperlipidemia: Continue home statin. ? GERD: Continue home PPI. DVT prophylaxis: Lovenox CODE STATUS: Full code, unverified Expected disposition: Back to SNF, 2 to 3 days Total clinical time spent by myself addressing the patient's medical issues, reviewing all the data, and collaborating with patient's care team: 35 minutes. Charges/Coding Visit Charges Inpatient E&M: 20666 Subs Hosp L2 05/06/23 3300 <Electronically signed by Roverto Zavala DO> Cosigner Signature (if applicable): CC: ~ Signed [facility] Work Phone: [phone] Progress note Author Rafaelheriberto Mahan [facility] May 06, 2023 9:44am Note Date/Time May 06, 2023 7:20 am [facility] Medical Records Department [address] [address] Progress Note - Industrial Insulator 05/06/23 0718 MR#: [id number] Acct: [id number] Name: DREA COPELAND Rep #:[id number] : 1960 63 From: Rafael Mahan PCP: KATIE Jiménez Status :ADM IN Location: ICU ICU02-1 Assessment & Plan Assessment/Plan (1) Acute hypoxemic respiratory failure: (2) Pneumonia: PLAN: Plan RECOMMENDATIONS: 1. Continue antibiotics as ordered. 2. Discontinue IV fluids. 3. Supplemental oxygen, if needed, to maintain saturations at or above 90%. 4. Maintain n.p.o. status. 5. Speech therapy evaluation. 6. Restart bolus tube feeding per baseline regimen. 7. Continue bronchodilator therapy. IMPRESSIONS: 1. Acute hypoxemic respiratory failure The patient was initially admitted to the hospital from his nursing facility in the setting of acute respiratory failure over concerns for aspiration pneumonia. The patient has improved clinically over the last 24 hours with supportive care, including supplemental oxygen and IV antimicrobial therapy. In addition, the patient is being maintained on scheduled bronchodilators, which will be continued without change. Recommend continuing antibiotics as ordered. The patient is currently maintaining appropriate oxygen saturations on room air. Speech therapy is scheduled to evaluate the patient today. The patient will be maintained n.p.o. status. Baseline bolus tube feeding can be initiated today from my perspective. 2. History of CVA with residual right-sided hemiplegia/hypertension/diabetes mellitus/history of alcohol and tobacco dependency/dysphagia Complicates care, management, recovery and prognosis. Continue home medicationsas indicated. Speech therapy to evaluate the patient. Maintain n.p.o. status for now. This note was generated with Ternation software. It may contain incorrectwords, spelling, and punctuation that were not noted in checking the note beforesigning. Subjective Subjective The patient was seen and examined at the bedside this morning. Events from the last 24 hours have been reviewed. The patient is currently afebrile, hemodynamically stable and maintaining appropriate oxygen saturations on room air. The patient was admitted yesterday after presenting from his care home facility with shortness of breath. There is concern for potential aspiration event leading to his clinical decompensation. The patient has improved significantly from a respiratory perspective over the last 24 hours. White count this morning was noted to be 11,000 with a hemoglobin of 10.5 g/dL. Platelet count is normal. The patient is essentially nonverbal this morning. Objective Data Objective Data The patient's most recent lab work, culture data and imaging studies have all been personally reviewed. Stool for occult blood was noted to be positive on May 04. Strep and urine Legionella antigens were negative. Blood and urine cultures are pending. Vital Signs: Vital Signs Temp Pulse Resp BP Pulse Ox O2 Del Method O2 Flow Rate 100.4 F H 109 H 34 H 119/75 94 Nasal Cannula 2 05/06/23 06:00 05/06/23 07:00 05/06/23 07:00 05/06/23 07:00 05/06/23 07:00 05/06/23 07:00 05/06/23 07:00 Oxygen Flow Rate (L/min) 2 Oxygen Delivery Method Nasal Cannula Weight: 205 lb 0.478 oz Body Mass Index (BMI) 27.8 Intake & Output: Intake and Output for Last 24 Hours 05/04/23 05/05/23 05/06/23 23:59 23:59 23:59 Intake Total 4634.17 / 4634.17 655.58 / 655.58 Output Total 800 / 1150 850 / 850 Balance 3834.17 / 3484.17 -194.42 / -194.42 Lab / Micro Data Attestation: I reviewed the patient's lab results. 05/06/23 01:05 05/06/23 01:05 Labs: Laboratory Results - last 24 hr 05/05/23 12:02: WBC 15.2 H, RBC 4.74, Hgb 12.9 L, Hct 41.6, MCV 87.8, MCH 27.2, MCHC 31.0 L, RDW Std Deviation 39.8, RDW Coeff of [place] 12.4, Plt Count 219, MPV 12.7 H, Immature Gran % (Auto) 0.300, Neut % (Auto) 77.9 H, Lymph % (Auto) 13.0 L, [place] % (Auto) 8.2, Eos % (Auto) 0.1, Baso % (Auto) 0.5, Absolute Neuts (auto)11.8 H, Absolute Lymphs (auto) 1.98, Nucleated RBC % 0, PT 14.2, INR 1.1, APTT 22.6 L, Sodium 143, Potassium 4.7, Chloride 106, Carbon Dioxide 32.0, Anion Gap 5, BUN 77 H, Creatinine 1.70 H, Estim Creat Clear Calc 47.37, Est GFR (MDRD) Af Amer 53 L, Est GFR (MDRD) Non-Af 44 L, BUN/Creatinine Ratio 45.3 H, Glucose 370 H, Lactic Acid 3.0 H*, Calcium 10.1, Total Bilirubin 0.40, AST 9 L, ALT 26, Alkaline Phosphatase 96, Troponin I High Sens 7, Total Protein 7.0, Albumin 3.0 L, Globulin 4.0, Albumin/Globulin Ratio 0.8 L, Acetone Level NEGATIVE 05/05/23 12:49: Ethyl Alcohol < 3.0 05/05/23 12:55: Urine Color Yellow, Urine Clarity Cloudy, Urine pH 6.5, Ur Specific [place] 1.015, Urine Protein 100 H, Urine Glucose (UA) 50 H, Urine Ketones 5 H, Urine Occult Blood 250 H, Urine Nitrite Negative, Urine Bilirubin Negative, Urine Urobilinogen 1 H, Ur Leukocyte Esterase 25 H, Urine RBC 10-25 SEEN, Urine WBC 0- 5 SEEN, Ur Squamous Epith Cells 0 SEEN, Amorphous Sediment 4+,Urine Bacteria 0 SEEN, Urine Mucus 0 SEEN 05/05/23 13:58: POC Glucose 351 H 05/05/23 15:00: S.aureus Protein A PCR Cancelled 05/05/23 15:00: S.aureus Protein A PCR POSITIVE H, MRSA (PCR) Cancelled 05/05/23 15:00: MRSA (PCR) Negative 05/05/23 16:30: Lactic Acid 4.2 H* 05/05/23 17:50: WBC 13.4 H, RBC 3.83 L, Hgb 10.2 L, Hct 34.3 L, MCV 89.6, MCH 26.6 L, MCHC 29.7 L, RDW Std Deviation 39.8, RDW Coeff of [place] 12.4, Plt Count 155, MPV 12.5 H 05/05/23 22:07: POC Glucose 354 H 05/06/23 01:05: WBC 11.2 H, RBC 3.90 L, Hgb 10.5 L, Hct 34.8 L, MCV 89.2, MCH 26.9 L, MCHC 30.2 L, RDW Std Deviation 40.5, RDW Coeff of [place] 12.5, Plt Count 171, MPV 12.7 H, Immature Gran % (Auto) 0.300, Neut % (Auto) 71.9 H, Lymph % (Auto) 22.3, [place] % (Auto) 4.9, Eos % (Auto) 0.2, Baso % (Auto) 0.4, Absolute Neuts (auto) 8.1 H, Absolute Lymphs (auto) 2.50, Nucleated RBC % 0, Sodium 145, Potassium 3.9, Chloride 115 H, Carbon Dioxide 25.0, Anion Gap 5, BUN 70 H, Creatinine 1.48 H, Estim Creat Clear Calc 56.07, Est GFR (MDRD) Af Amer 62, Est GFR (MDRD) Non-Af 51 L, BUN/Creatinine Ratio 47.3 H, Glucose 400 H, Lactic Acid 3.3 H*, Calcium 9.1 Micro: Microbiology 05/05/23 12:55 Urine Catheter - Hubbard Legionella Antigen - Final 05/05/23 12:55 Urine Catheter - [place] Streptococcus pneumoniae Antigen (M - Final 05/05/23 12:20 Mucosa - Nose SARS-CoV-2, Influenza & RSV (PCR) - Final 05/05/23 12:25 Stool Stool Occult Blood (JOANA) - Final Occult Blood Positive ABG Data ABG results: ABG 05/05/23 12:07 Specimen Type JER Sample Site Not entered O2 % 15.0 VBG pH 7.44 H VBG pO2 22 L VBG HCO3 33 H VBG Total CO2 35 H VBG O2 Sat (Calc) 39 L VBG Base Excess 9 H POC Mix VBG pCO2 Pt Tmp 48.7 O2 Delivery Device HFNC Radiography Diagnostic Testing: Radiology Impression Brain CT 05/05/23 12:04 IMPRESSION: No acute intracranial abnormality. Chronic microvascular changes. Electronically Signed: Cricket Lancaster MD at 13:36 EST , Chest X-Ray 05/05/23 12:20 IMPRESSION: Right lower lobe pneumonia. Question small left lower lobe infiltrate. Electronically Signed: Cricket Lancaster MD at 12:51 EST , Chest CT 05/06/23 00:04 IMPRESSION: Dense right lower lobe consolidation with some additional patchy airspace disease in the right upper and left lower lobes. Small right pleural effusion. Findings consistent with pneumonia. Electronically Signed: Tez Ibarra MD at 0:58 EST , Physical Exam Const alert and no apparent distress General Appearance: cooperative HEENT normocephalic and head/scalp atraumatic Eyes PERRL, EOMs intact bilaterally and conjunctivae normal Neck supple General: trachea midline Chest inspection of chest normal Resp Effort and Inspection: tachypneic Auscultation: diminished lung sounds Cardio S1 normal heart sound and S2 normal heart sound Rate: tachycardic GI normal to inspection, nondistended, normoactive bowel sounds Inspection: GI tube present Extremity no clubbing, cyanosis or edema Skin no rashes or lesions noted Neuro Neuro Narrative: Baseline neurological status. Psych Mood & Affect: flat affect Charges/Coding Visit Charges Inpatient E&M: 45769 Subs Hosp L3 05/06/23 0944 <Electronically signed by Rafael Mahan DO> Cosigner Signature (if applicable): CC: ~ Signed [facility] Work Phone: 1(197) 859-825803-03-2024 Discharge summary Author Lawrence Skaggs [facility] May 05, 2023 8:31pm Note Date/Time May 05, 2023 12:1 6pm [facility] Medical Records Department [address] [place] [address] Emergency Department Summary 05/05/23 MR#: [id number] Acct: [id number] Name: DREA COPELAND Rep #:[id number] : 1960 63 From: Lawrence Morrison PCP: KATIE Jiménez Status :ADM IN Location: ICU ICU02-1 HPI History of Present Illness Chief Complaint: Shortness of Breath [facility] Medical History (Updated 05/05/23 @ 16:22 by Dede Aggarwal) Alcohol abuse, uncomplicated Cerebral infarction 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 Diabetes Essential (primary) hypertension Hemiplegia Hemiplegia, unspecified affecting right dominant side Hyperlipidemia, unspecified Iron deficiency anemia, unspecified 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 Nicotine dependence, other tobacco product, uncomplicated Other hereditary and idiopathic neuropathies Type 2 diabetes mellitus without complications Vitamin D deficiency, unspecified Home Medications ammonium lactate 12 % topical cream 1 applic topical BID PRN dry skin 05/05/23 [History Last Taken Unknown] aspirin 81 mg chewable tablet 1 tab feeding tube DAILY CARDIOVASCULAR 05/05/23 [History Last Taken Unknown] atorvastatin 80 mg tablet 80 mg feeding tube DAILY CHOLESTEROL 05/05/23 [History Last Taken Unknown] carvedilol 25 mg tablet 25 mg feeding tube BID HIGH BLOOD PRESSURE 05/05/23 [History Last Taken Unknown] cholecalciferol (vitamin D3) 50 mcg (2,000 unit) capsule 50 mcg feeding tube DAILY VIT D DEFICIENCY 05/05/23 [History Last Taken Unknown] insulin glargine 100 unit/mL subcutaneous solution 16 unit subcut QPM DIABETES 05/05/23 [History Last Taken Unknown] losartan 50 mg tablet 50 mg feeding tube DAILY HIGH BLOOD PRESSURE 05/05/23 [History Last Taken Unknown] multivitamin with iron-mineral 1 tab feeding tube DAILY VITAMIN 05/05/23 [History Last Taken Unknown] thiamine HCl (vitamin B1) 100 mg tablet 100 mg feeding tube DAILY VITAMIN B DIFICIENCY 05/05/23 [History Last Taken Unknown] Allergy/AdvReac Type Severity Reaction Status Date / Time No Known Allergies Allergy Verified 05/05/23 11:58 Social History Smoking Status: Former smoker EXAM Physical Exam Const Vital Signs: 05/05/23 11:50 05/05/23 11:58 05/05/23 11:58 Temperature 98 F Temperature Source Temporal Pulse Rate 110 H 121 H Respiratory Rate 34 H 41 H Respiratory Effort Short of Breath Respiratory Depth Shallow Respiratory Pattern Tachypnea Blood Pressure 83/59 L Blood Pressure Mean 67 Pulse Ox 93 Oxygen Delivery Method Non-Rebreather Non-Rebreather Oxygen Flow Rate (L/min) 05/05/23 12:00 05/05/23 12:27 05/05/23 12:28 Temperature Temperature Source Pulse Rate 107 H Respiratory Rate 34 H Respiratory Effort Respiratory Depth Respiratory Pattern Blood Pressure 84/54 L 98/70 Blood Pressure Mean 64 79 Pulse Ox 96 94 Oxygen Delivery Method Nasal Cannula Oxygen Flow Rate (L/min) 05/05/23 13:18 Temperature Temperature Source Pulse Rate 102 H Respiratory Rate 25 H Respiratory Effort Respiratory Depth Respiratory Pattern Blood Pressure 94/60 Blood Pressure Mean 71 Pulse Ox 100 Oxygen Delivery Method High Flow Oxygen Flow Rate (L/min) 15 [facility] MDM Narrative Medical decision making narrative: HISTORY OF PRESENT ILLNESS: 63 M here with AMS, difficulty breathing. The patient cannot provide a reliable history. Spoke to mom over the phone. Noted facility called to say the patient was havingproblems breathing. Notes hx of CVA, right sided paralysis. Wants pt to be full code. REVIEW OF SYSTEMS: unable to obtain ROS given mental status PHYSICAL EXAM: Nursing triage notes reviewed, Vital signs reviewed Constitutional: please see mdm HENT: MMM Eyes: Pupils equal round and reactive to light, Extraocular muscles intact Neck: No stridor, no JVD, full neck ROM Lungs: Clear to auscultation, No wheezing or rales. No increased work of breathing, no conversational dyspnea, no accessory muscle use, no nasal flaring. No respiratory distress noted Heart: Regular rate and rhythm, No murmurs, No rubs and No gallops, 2+ distal pulses (radial, femoral, posterior tibial) in all extremities Abdomen: Soft, there is no tenderness, rigidity, rebound or guarding, no obviousperitoneal signs, no palpable pulsatile abdominal masses, no auscultated abdominal bruit : No CVAT rectal: Performed with brenda Pritchett RN revealed dark stool. Sent for Hemoccult Extremities: No edema Neuro: No focal neurological deficits, cranial nerves II through XII intact, 5/5strength in all extremities. Intact sensation to light touch in all extremities,2+ reflexes bilateral patella tendons. Normal gait. No ataxia. Skin: No rash or lesions noted MEDICAL DECISION MAKING: Chief Complaint: AMS External records reviewed: No records noted in [employer] Factors affecting care: CVA, right hemiplegia, type 2 diabetes, COPD Social determinants of health: facility resident History obtained from others: EMS, family Consults: n internal medicine, critical care MDM Narrative: Patient was initially hypotensive, tachycardic and tachypneic. He was also altered and somnolent responsive to painful stimuli minimally. I considered placing the patient on mechanical ventilation however took a cautious approach given hypotension and signs of tachypnea and concern for. The patient decompensation and long-term issues with being able to be weaned off the ventilator. I opted to place the patient on high flow nasal cannula to provide better oxygenation and to resuscitate the patient before I would consider intubating. I considered the following differential diagnosis: sepsis, DKA, UTI, metabolic or infectious encephalopathy, ICH, pneumonia, COVID, CHF, arrhythmia, anemia ALL IMAGES (IF OBTAINED) HAVE BEEN PERSONALLY REVIEWED AND INTERPRETED BY MYSELF. VBG without respiratory acidosis, no metabolic acidosis, no evidence of DKA CBC with leukocytosis, mild anemia, no thrombocytopenia Acetone negative Lactate elevated consistent with endorgan hypoperfusion concerning for distributive infection BMP with acute kidney injury, no significant electrolyte abnormalities,, no anion gap, bicarb normal limit suggestive of no metabolic acidosis High-sensitivity troponin is negative, no evidence of myocardial ischemia Serum albumin low consistent with malnourishment Chest x-ray was read reviewed myself shows evidence of right lower lobe infiltrate consistent with pneumonia. Radiologist agrees my interpretation CT scan head shows no evidence of intracranial abnormality The synthesis of the patient's history, physical exam, labs and images suggest respiratory failure secondary to community-acquired pneumonia. Patient receivedbroad-spectrum antibiotics. Blood cultures and urine culture pending at this time. Given patient's reliance on high flow nasal cannula oxygen he will need admission to the intensive care unit. Discussed this with the hospitalist (Dr. Barrera). The patient and/or family, caregivers express understanding. The patient and/orfamily, caregivers agrees with the plan. Shared decision making: I will have a discussion with the patient and or visitors regarding risk/benefits of further testing or admission. They will be made aware of of the risk/benefits inherent in this decision they will be given the opportunity to voice understanding. Total critical care time today provided was at least 60 minutes. This excludes separately billable procedures. Critical care time (if documented) is secondary to the patient having high probability of clinically significant/life threatening deterioration in the patient's condition which required my urgent intervention. Impression: 1. AMS 2. Acute Respiratory Failure 3. Community-acquired pneumonia Dispo: Admit to ICU This note was generated with [employer] dictation software. It may contain incorrectwords, spelling, and punctuation that were not noted in review of the chart prior to signing. Lab Data Labs: Laboratory Results - last 24 hr 05/05/23 05/05/23 05/05/23 12:02 12:49 12:55 WBC 15.2 H RBC 4.74 Hgb 12.9 L Hct 41.6 MCV 87.8 MCH 27.2 MCHC 31.0 L RDW Std Deviation 39.8 RDW Coeff of [place] 12.4 Plt Count 219 MPV 12.7 H Immature Gran % (Auto) 0.300 Neut % (Auto) 77.9 H Lymph % (Auto) 13.0 L [place] % (Auto) 8.2 Eos % (Auto) 0.1 Baso % (Auto) 0.5 Absolute Neuts (auto) 11.8 H Absolute Lymphs (auto) 1.98 Nucleated RBC % 0 PT 14.2 INR 1.1 APTT 22.6 L Sodium 143 Potassium 4.7 Chloride 106 Carbon Dioxide 32.0 Anion Gap 5 BUN 77 H Creatinine 1.70 H Estim Creat Clear Calc 47.37 Est GFR (MDRD) Af Amer 53 L Est GFR (MDRD) Non-Af 44 L BUN/Creatinine Ratio 45.3 H Glucose 370 H Lactic Acid 3.0 H* Calcium 10.1 Total Bilirubin 0.40 AST 9 L ALT 26 Alkaline Phosphatase 96 Troponin I High Sens 7 Total Protein 7.0 Albumin 3.0 L Globulin 4.0 Albumin/Globulin Ratio 0.8 L Urine Color Yellow Urine Clarity Cloudy Urine pH 6.5 Ur Specific [place] 1.015 Urine Protein 100 H Urine Glucose (UA) 50 H Urine Ketones 5 H Urine Occult Blood 250 H Urine Nitrite Negative Urine Bilirubin Negative Urine Urobilinogen 1 H Ur Leukocyte Esterase 25 H Urine RBC 10-25 SEEN Urine WBC 0-5 SEEN Ur Squamous Epith Cells 0 SEEN Amorphous Sediment 4+ Urine Bacteria 0 SEEN Urine Mucus 0 SEEN Ethyl Alcohol < 3.0 Acetone Level NEGATIVE ABG Data ABG results: ABG 05/05/23 12:07 Specimen Type JER Sample Site Not entered O2 % 15.0 VBG pH 7.44 H VBG pO2 22 L VBG HCO3 33 H VBG Total CO2 35 H VBG O2 Sat (Calc) 39 L VBG Base Excess 9 H POC Mix VBG pCO2 Pt Tmp 48.7 O2 Delivery Device HFNC Radiography Diagnostic Testing: Clinical Impression(s) from Imaging Studies Brain CT 05/05/23 12:04 IMPRESSION: No acute intracranial abnormality. Chronic microvascular changes. Electronically Signed: Cricket Lancaster MD at 13:36 EST , Chest X-Ray 05/05/23 12:20 IMPRESSION: Right lower lobe pneumonia. Question small left lower lobe infiltrate. Electronically Signed: Cricket Lancaster MD at 12:51 EST , Discharge Plan Dx/Rx/DC Orders Clinical Impression: Acute hypoxemic respiratory failure Disposition Disposition: Acute Care Hospital [facility] Discharge Date/Time: 05/05/23 14:26 What to do if you have Problems For any increased pain, shortness of breath, bleeding, nausea or vomiting, chestpain, or any unexpected problems, contact your Primary Care Provider. Call [facility] ([phone]) or report to the closest Emergency Room. Call 911 if necessary. 05/05/232030 <Electronically signed by Lawrence Skaggs DO> Cosigner Signature (if applicable): CC: KATIE Monte ~ Signed [facility] Work Phone: 1(434) 525-610603-03-2024 Consult note Author Jd Gonzalez [facility] May 05, 2023 4:49pm Note Date/Time May 05, 2023 3:37 pm [facility] Medical Records Department [address] [place] [address] Consultation - Industrial Insulator 05/05/23 1534 MR#: [id number] Acct: [id number] Name: DREA COPELAND Rep #:[id number] : 1960 63 From: Jd Gonzalez MD PCP: Maddy Monte [employer] Status :ADM IN Location: ICU ICU02-1 HPI Consult Data Date of Consult: 05/05/23 HPI Narrative HPI Narrative: 63yo M w/ CVA 12/2022 c/b R sided hemiplegia, DM, h/o EtOH/tobacco abuse, anemia, dysphagia s/p G-tube who was admitted for respiratory failure. He is unable to provide much history. Per his sister he was apparently stable when shesaw him yesterday at halfway, however earlier today he apparently developedworsening lethargy and respiratory distress and so was sent here. He was hypoxicon arrival requiring up to 15L NC, now weaning down. Also febrile and hypotensive, now s/p 3L IVF boluses. He is lethargic but is arousable and will answer some simple questions when stimulated. At baseline per family he does have some intermittent mild confusion and word slurring, but can carry some conversations. He apparently is given some careful oral feeding along with G tube feedings, no reported vomiting or choking recently. He was also noted to have several melanic bowel movements here. No prior h/o cardiac or pulmonary disease. Used to drink EtOH heavily daily and smoke tobacco until he had his CVA. 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 Nicotine dependence, other tobacco product, uncomplicated Other hereditary and idiopathic neuropathies Type 2 diabetes mellitus without complications Vitamin D deficiency, unspecified Home Medications ammonium lactate 12 % topical cream 1 applic topical BID PRN dry skin 05/05/23 [History Last Taken Unknown] aspirin 81 mg chewable tablet 1 tab feeding tube DAILY CARDIOVASCULAR 05/05/23 [History Last Taken Unknown] atorvastatin 80 mg tablet 80 mg feeding tube DAILY CHOLESTEROL 05/05/23 [History Last Taken Unknown] carvedilol 25 mg tablet 25 mg feeding tube BID HIGH BLOOD PRESSURE 05/05/23 [History Last Taken Unknown] cholecalciferol (vitamin D3) 50 mcg (2,000 unit) capsule 50 mcg feeding tube DAILY VIT D DEFICIENCY 05/05/23 [History Last Taken Unknown] insulin glargine 100 unit/mL subcutaneous solution 16 unit subcut QPM DIABETES 05/05/23 [History Last Taken Unknown] losartan 50 mg tablet 50 mg feeding tube DAILY HIGH BLOOD PRESSURE 05/05/23 [History Last Taken Unknown] multivitamin with iron-mineral 1 tab feeding tube DAILY VITAMIN 05/05/23 [History Last Taken Unknown] thiamine HCl (vitamin B1) 100 mg tablet 100 mg feeding tube DAILY VITAMIN B DIFICIENCY 05/05/23 [History Last Taken Unknown] Allergy/AdvReac Type Severity Reaction Status Date / Time No Known Allergies Allergy Verified 05/05/23 11:58 Social History Smoking Status: Former smoker ROS Review of Systems ROS Unobtainable: due to encephalopathy Objective Data Objective Data Vital Signs: Vital Signs Last response Temperature 38.1 C H 05/05/23 14:55 Temperature Source Core 05/05/23 14:55 Pulse Rate 105 H 05/05/23 14:55 Respiratory Rate 27 H 05/05/23 14:55 Respiratory Effort Short of Breath 05/05/23 11:58 Respiratory Depth Shallow 05/05/23 11:58 Respiratory Pattern Tachypnea 05/05/23 11:58 Blood Pressure 95/55 L 05/05/23 14:55 Blood Pressure Mean 68 05/05/23 14:55 Blood Pressure Source Monitor 05/05/23 14:55 Blood Pressure Position Semi-Fowlers 05/05/23 14:55 Blood Pressure Location Right Arm 05/05/23 14:55 Pulse Ox 100 05/05/23 14:55 Oxygen Delivery Method High Flow 05/05/23 14:55 Oxygen Flow Rate (L/min) 15 05/05/23 14:55 I&O: I&O Last 24 Hours 05/04/23 05/05/23 05/05/23 23:59 11:59 23:59 Intake Total 2099 Balance 2099 I&O: Total Stay 05/05/23 11:49 thru 05/05/23 15:16 Intake Total 2100 Balance 2100 Current Meds Ordered / Administered: Current meds ordered / Administered Generic Name Dose Route Start Last Admin Trade Name Freq PRN Reason Stop Dose Admin Acetaminophen 650 mg 05/05/23 14:29 Acetaminophen 325 Mg Tablet PO Q6H PRN PRN Pain 1-10 Or Fever >100.7 Enoxaparin Sodium 40 mg 05/06/23 10:00 Enoxaparin 40 Mg/0.4 Ml Syringe SC DAILY [facility] Sodium Chloride 1,000 mls @ 150 mls/hr 05/05/23 14:29 IV 05/06/23 03:48 .[id number] VINCE Vancomycin IV-PHARMACY TO DOSE 500 mls @ 250 mls/hr 05/05/23 14:29 1 each/ Sodium Chloride IV PRN PRN Rx to Dose Protocol Piperacillin Sod/Tazobactam 50 mls @ 12.5 mls/hr 05/05/23 22:00 Sod 3.375 gm/ Sodium Chloride IV Q8 VINCE Sodium Chloride 250 mls @ 15 mls/hr 05/05/23 14:40 IV .[id number] PRN Additional IVPB Infusion Sodium Chloride 250 mls @ 15 mls/hr 05/05/23 14:40 IV .[id number] PRN Saline Flush Vancomycin HCl 500 mg in 100 mls @ 100 mls/hr 05/06/23 02:00 IV Q12H VINCE Morphine Sulfate 2 - 4 mg 05/05/23 14:29 Morphine 2 Mg/Ml Syringe IV Q3H PRN PRN Pain Score 6-10 Ondansetron HCl 4 mg 05/05/23 14:29 Ondansetron 4 Mg/2 Ml Vial IV Q8H PRN PRN NAUSEA/VOMITING Sodium Chloride 10 - 40 ml 05/05/23 14:40 0.9% Saline Lock 10 Ml Syringe IV UD PRN SALINE FLUSH Vancomycin Protocol 1 lab 05/06/23 23:30 Vancomycin Trough/Random Due 05/07/23 03:30 DAILY [facility] Lab / Micro Data 05/05/23 12:02 05/05/23 12:02 Labs: Laboratory Results - last 24 hr 05/05/23 12:02: WBC 15.2 H, RBC 4.74, Hgb 12.9 L, Hct 41.6, MCV 87.8, MCH 27.2, MCHC 31.0 L, RDW Std Deviation 39.8, RDW Coeff of [place] 12.4, Plt Count 219, MPV 12.7 H, Immature Gran % (Auto) 0.300, Neut % (Auto) 77.9 H, Lymph % (Auto) 13.0 L, [place] % (Auto) 8.2, Eos % (Auto) 0.1, Baso % (Auto) 0.5, Absolute Neuts (auto)11.8 H, Absolute Lymphs (auto) 1.98, Nucleated RBC % 0, PT 14.2, INR 1.1, APTT 22.6 L, Sodium 143, Potassium 4.7, Chloride 106, Carbon Dioxide 32.0, Anion Gap 5, BUN 77 H, Creatinine 1.70 H, Estim Creat Clear Calc 47.37, Est GFR (MDRD) Af Amer 53 L, Est GFR (MDRD) Non-Af 44 L, BUN/Creatinine Ratio 45.3 H, Glucose 370 H, Lactic Acid 3.0 H*, Calcium 10.1, Total Bilirubin 0.40, AST 9 L, ALT 26, Alkaline Phosphatase 96, Troponin I High Sens 7, Total Protein 7.0, Albumin 3.0 L, Globulin 4.0, Albumin/Globulin Ratio 0.8 L, Acetone Level NEGATIVE 05/05/23 12:49: Ethyl Alcohol < 3.0 05/05/23 12:55: Urine Color Yellow, Urine Clarity Cloudy, Urine pH 6.5, Ur Specific [place] 1.015, Urine Protein 100 H, Urine Glucose (UA) 50 H, Urine Ketones 5 H, Urine Occult Blood 250 H, Urine Nitrite Negative, Urine Bilirubin Negative, Urine Urobilinogen 1 H, Ur Leukocyte Esterase 25 H, Urine RBC 10-25 SEEN, Urine WBC 0- 5 SEEN, Ur Squamous Epith Cells 0 SEEN, Amorphous Sediment 4+,Urine Bacteria 0 SEEN, Urine Mucus 0 SEEN 05/05/23 13:58: POC Glucose 351 H Micro: Microbiology 05/05/23 12:20 Mucosa - Nose SARS-CoV-2, Influenza & RSV (PCR) - Final 05/05/23 12:25 Stool Stool Occult Blood (JOANA) - Final Occult Blood Positive ABG Data ABG results: ABG 05/05/23 12:07 Specimen Type JER Sample Site Not entered O2 % 15.0 VBG pH 7.44 H VBG pO2 22 L VBG HCO3 33 H VBG Total CO2 35 H VBG O2 Sat (Calc) 39 L VBG Base Excess 9 H POC Mix VBG pCO2 Pt Tmp 48.7 O2 Delivery Device HFNC Imaging Radiology Impression Brain CT 05/05/23 12:04 IMPRESSION: No acute intracranial abnormality. Chronic microvascular changes. Electronically Signed: Cricket Lancaster MD at 13:36 EST Reading Location ID and State: [facility] / [place] Tel , Service support , Chest X-Ray 05/05/23 12:20 IMPRESSION: Right lower lobe pneumonia. Question small left lower lobe infiltrate. Electronically Signed: Cricket Lancaster MD at 12:51 EST Reading Location ID and State: [facility] / [place] Tel , Service support , Assessment and Plan . Assessment and plan: Physical Exam: Gen - NAD, chronically ill-appearing HEENT - MMM. Sclera anicteric Resp - Diminished in bases. Mild tachypnea CV - RRR. No m/g/r Abd - Soft, NT, ND. +G-tube in place Ext - No c/c/e. MSK - No joint swelling/deformity Skin - No rashes? Neuro - Lethargic. Baseline hemiplegia. Will wake up when stimulated and can answer some simple questions, but falls back asleep I have reviewed the pertinent vital sign, laboratory, and imaging data. ASSESSMENT: # Acute hypoxic respiratory failure # Pneumonia - possible aspiration # GI bleed/melena # Lactic acidosis # YADI - vs CKD, unknown baseline # CVA 12/2022 c/b R sided hemiplegia # DM # h/o EtOH/tobacco abuse # Anemia # Dysphagia s/p G-tube PLAN: -On 12L NC, wean to keep sats > 90%. Can switch to HHFNC if increased WOB; low threshold to intubate if worsening -Empiric vanc/cefepime/doxy (switched zosyn given renal failure). f/u Cx, MRSA nares, urine strep/legionella. COVID/flu/RSV negative -Cont IVF. Monitor for worsening hypotension, may need pressors. Trend lactate -Nebs, mucomyst -Follow CBC. Start PPI gtt. Recommend GI consult -Follow mental status. CT head without acute pathology -Speech eval when improved -SQ insulin FEN/GI: NPO Proph DVT/GI: SCDs, protonix gtt Updated family at bedside Critical Care Time: 60 mins The entirety of this encounter was completed via telemedicine 05/05/23 2743 <Electronically signed by Jd Gonzalez MD> Cosigner Signature (if applicable): CC: INSURANCE COORDINATOR-C Maddy Monte; Dr. Parish Sanchez MD; Dr. Brain Franks MD; Dr. Rafael Mahan DO; Dr. Vinnie Castillo MD; Dr. Max Mata MD; Dr. Germania Moore MD; Dr. López Pena MD; Dr. Michael Mansfield MD; Dr. Augie Davila MD; Dr. Jd Gonzalez MD; Dr. Vaughn Arnold MD; Dr. Elvira Jones MD~ Signed [facility] Work Phone: 1(549) 276-694203-03-2024 History and physical note Author [facility] May 05, 2023 3:42pm Note Date/Time May 05, 2023 1:56 pm [facility] Medical Records Department [address] [place] [id number] History & Physical Exam 05/05/23 1345 MR#: [id number] Acct: [id number] Name: DREA COPELAND Rep #:[id number] : 1960 63 From: Abril Barrera MD PCP: KATIE Jiménez Status :ADM IN Location: ICU ICU02-1 HPI - General General Date of Admission: 05/05/23 Date of Service: 05/05/23 Chief Complaint: shortness of breath HPI Narrative DREA COPELAND, is a 63 M who presents via the ED on 05/05/2023 with a PMH as outlined with a complaint of shortness of breath. He was brought from his care home facility. He was noted to be short of breath and somnolent in his SNF. Patient was alert but could not give much of a history. Vitals in the ED were BP of 94/60, NC of 102, RR of 25 and oxygen sats of 100% on 15L of high flow oxygen. CBC showed hemoglobin of 12.9 with WBC of 15.2 withplatelets of 219. Chemistry shows sodium of 143 with potassium of 4.7 and creatinine of 1.7. Lactic acid was 3 and calcium was 10.1. Urinalysis showed 3+ bacteria. CXR showed a right lower lobe pneumonia and brain CT showed no acuteintracranial abnormality. He is being admitted to be managed for acute hypoxic respiratory failure due to community acquired pneumonia. [facility] Medical History (Updated 05/05/23 @ 13:[address] 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 Nicotine dependence, other tobacco product, uncomplicated Other hereditary and idiopathic neuropathies Type 2 diabetes mellitus without complications Vitamin D deficiency, unspecified Home Medications ammonium lactate 12 % topical cream 1 applic topical BID PRN dry skin 05/05/23 [History Last Taken Unknown] aspirin 81 mg chewable tablet 1 tab feeding tube DAILY CARDIOVASCULAR 05/05/23 [History Last Taken Unknown] aspirin 81 mg tablet,delayed release (Adult Aspirin Regimen) 81 mg PO DAILY heart 05/05/23 [History Last Taken Unknown] atorvastatin 80 mg tablet 80 mg PO DAILY cholesterol 05/05/23 [History Last Taken Unknown] atorvastatin 80 mg tablet 80 mg feeding tube DAILY CHOLESTEROL 05/05/23 [History Last Taken Unknown] carvedilol 25 mg tablet 25 mg PO BID blood pressur 05/05/23 [History Last Taken Unknown] carvedilol 25 mg tablet 25 mg feeding tube BID HIGH BLOOD PRESSURE 05/05/23 [History Last Taken Unknown] cholecalciferol (vitamin D3) 50 mcg (2,000 unit) capsule 50 mcg PO DAILY bone health 05/05/23 [History Last Taken Unknown] cholecalciferol (vitamin D3) 50 mcg (2,000 unit) capsule 50 mcg feeding tube DAILY VIT D DEFICIENCY 05/05/23 [History Last Taken Unknown] insulin glargine 100 unit/mL subcutaneous solution 16 unit subcut QPM DIABETES 05/05/23 [History Last Taken Unknown] insulin glargine-yfgn 100 unit/mL subcutaneous solution 16 unit subcut QPM bloodsugar 05/05/23 [History Last Taken Unknown] losartan 50 mg tablet 50 mg feeding tube DAILY HIGH BLOOD PRESSURE 05/05/23 [History Last Taken Unknown] losartan 50 mg tablet (Cozaar) 50 mg PO DAILY heart 05/05/23 [History Last Taken Unknown] multivitamin with iron-mineral 1 tab feeding tube DAILY VITAMIN 05/05/23 [History Last Taken Unknown] thiamine HCl (vitamin B1) 100 mg tablet 100 mg PO DAILY supplement 05/05/23 [History Last Taken Unknown] thiamine HCl (vitamin B1) 100 mg tablet 100 mg feeding tube DAILY VITAMIN B DIFICIENCY 05/05/23 [History Last Taken Unknown] Allergy/AdvReac Type Severity Reaction Status Date / Time No Known Allergies Allergy Verified 05/05/23 11:58 Social History Smoking Status: Former smoker ROS Review of Systems ROS Unobtainable: due to encephalopathy Vital Signs Vital Signs Vital Signs: 05/05/23 11:50 05/05/23 11:58 05/05/23 11:58 Temperature 98 F Temperature Source Temporal Pulse Rate 110 H 121 H Respiratory Rate 34 H 41 H Respiratory Effort Short of Breath Respiratory Depth Shallow Respiratory Pattern Tachypnea Blood Pressure 83/59 L Blood Pressure Mean 67 Pulse Ox 93 Oxygen Delivery Method Non-Rebreather Non-Rebreather Oxygen Flow Rate (L/min) 05/05/23 12:00 05/05/23 12:27 05/05/23 12:28 Temperature Temperature Source Pulse Rate 107 H Respiratory Rate 34 H Respiratory Effort Respiratory Depth Respiratory Pattern Blood Pressure 84/54 L 98/70 Blood Pressure Mean 64 79 Pulse Ox 96 94 Oxygen Delivery Method Nasal Cannula Oxygen Flow Rate (L/min) 05/05/23 13:18 Temperature Temperature Source Pulse Rate 102 H Respiratory Rate 25 H Respiratory Effort Respiratory Depth Respiratory Pattern Blood Pressure 94/60 Blood Pressure Mean 71 Pulse Ox 100 Oxygen Delivery Method High Flow Oxygen Flow Rate (L/min) 15 Weight Weight: 166 lb 0.129 oz Body Mass Index (BMI) 22.5 Physical Exam Const Constitutional Narrative: alert, opens his eyes in response to voice but could not respond to any questions Orientation / Consciousness: lethargic HEENT normocephalic and head/scalp atraumatic Eyes PERRL and EOMs intact bilaterally Lymph Lymphatic: no lymphadenopathy noted Resp Resp Narrative: diminished breath sounds bilaterally. Coarse crackles in right lower lung base, no crackles. tachypneic. Effort and Inspection: respiratory distress Cardio Cardio Narrative: tachycardia, normal S1 and S2, no murmurs. GI normal to inspection, nondistended, normoactive bowel sounds, soft to palpation,non-tender and non-distended Extremity normal capillary refill, no clubbing, cyanosis or edema and no calf tenderness Skin General Skin Exam: no breakdown Neuro Neuro Narrative: alert, nonverbal, frail. Right hemiplegia with right hand contracted due to history of previous stroke Motor Exam: general weakness Psych Mood & Affect: flat affect Results Lab / Micro Data 05/05/23 12:02 05/05/23 12:02 Labs: Laboratory Results - last 24 hr 05/05/23 12:02: WBC 15.2 H, RBC 4.74, Hgb 12.9 L, Hct 41.6, MCV 87.8, MCH 27.2, MCHC 31.0 L, RDW Std Deviation 39.8, RDW Coeff of [place] 12.4, Plt Count 219, MPV 12.7 H, Immature Gran % (Auto) 0.300, Neut % (Auto) 77.9 H, Lymph % (Auto) 13.0 L, [place] % (Auto) 8.2, Eos % (Auto) 0.1, Baso % (Auto) 0.5, Absolute Neuts (auto)11.8 H, Absolute Lymphs (auto) 1.98, Nucleated RBC % 0, PT 14.2, INR 1.1, APTT 22.6 L, Sodium 143, Potassium 4.7, Chloride 106, Carbon Dioxide 32.0, Anion Gap 5, BUN 77 H, Creatinine 1.70 H, Estim Creat Clear Calc 47.37, Est GFR (MDRD) Af Amer 53 L, Est GFR (MDRD) Non-Af 44 L, BUN/Creatinine Ratio 45.3 H, Glucose 370 H, Lactic Acid 3.0 H*, Calcium 10.1, Total Bilirubin 0.40, AST 9 L, ALT 26, Alkaline Phosphatase 96, Troponin I High Sens 7, Total Protein 7.0, Albumin 3.0 L, Globulin 4.0, Albumin/Globulin Ratio 0.8 L, Acetone Level NEGATIVE 05/05/23 12:49: Ethyl Alcohol < 3.0 05/05/23 12:55: Urine Color Yellow, Urine Clarity Cloudy, Urine pH 6.5, Ur Specific [place] 1.015, Urine Protein 100 H, Urine Glucose (UA) 50 H, Urine Ketones 5 H, Urine Occult Blood 250 H, Urine Nitrite Negative, Urine Bilirubin Negative, Urine Urobilinogen 1 H, Ur Leukocyte Esterase 25 H, Urine RBC 10-25 SEEN, Urine WBC 0- 5 SEEN, Ur Squamous Epith Cells 0 SEEN, Amorphous Sediment 4+,Urine Bacteria 0 SEEN, Urine Mucus 0 SEEN Micro: Microbiology 05/05/23 12:20 Mucosa - Nose SARS-CoV-2, Influenza & RSV (PCR) - Final 05/05/23 12:25 Stool Stool Occult Blood (JOANA) - Final Occult Blood Positive ABG Data ABG results: ABG 05/05/23 12:07 Specimen Type JER Sample Site Not entered O2 % 15.0 VBG pH 7.44 H VBG pO2 22 L VBG HCO3 33 H VBG Total CO2 35 H VBG O2 Sat (Calc) 39 L VBG Base Excess 9 H POC Mix VBG pCO2 Pt Tmp 48.7 O2 Delivery Device HFNC Imaging Radiology Impression Brain CT 05/05/23 12:04 IMPRESSION: No acute intracranial abnormality. Chronic microvascular changes. Electronically Signed: Cricket Lancaster MD at 13:36 EST Reading Location ID and State: [address] [place] [address] Tel , Service support , Chest X-Ray 05/05/23 12:20 IMPRESSION: Right lower lobe pneumonia. Question small left lower lobe infiltrate. Electronically Signed: Cricket Lancaster MD at 12:51 EST , Assessment & Plan Assessment/Plan (1) Acute hypoxemic respiratory failure: (2) Pneumonia: PLAN: Plan #Acute hypoxic respiratory failure due to community acquired pneumonia * admitted with a complaint of shortness of breath. * CXR showed right lower lobe pneumonia * now on 15L of oxygen. * start on IV zosyn and vancomycin * get urine for strep and legionella * get sputum and blood cultures * consult critical care * titrate oxygen to maintain sats >90% * low threshold for intubation * #Lactic acidosis:lactic acid is 3. Likely due to hypoxia. Should resolve with hydration and as respiratory status improves #History of stroke: has right sided hemiplegia. Will monitor. On aspirin, plavixand carvedilol. Hold carvedilol due to hypotension #Hypertension: On losartan and carvedilol. Will hold these due to hypotension. #Type 2 diabetes mellitus: On Lantus 16 units twice daily. Insulin sliding scale. Accu-Cheks ACHS. #DVT prophylaxis; lovenox Code status: full code- unverified. Patient unable to communicate, but per ED doctor he spoke to patient's mother who wanted him to be full code. Charges/Coding Visit Charges Inpatient E&M: 98233 Init Hosp L3 Procedures Hospitalists Procedures: 75532 Advncd Care Plan 30 Min 05/05/23 1542 <Electronically signed by Abril Barrera MD> Cosigner Signature (if applicable): CC: KATIE Monte; Dr. Abril Barrera MD~ Signed [facility] Work Phone: [phone]) 760-319603-03-2024 Consult note Author [facility] May 05, 2023 2:57pm Note Date/Time May 05, 2023 2:40 pm [facility] Medical Records Department [address] [place] [id number] Pharmacokinetic/Renal -Consult 05/05/23 1440 MR#: [id number] Acct: [id number] Name: DREA COPELAND Rep #:[id number] : 1960 63 From: Vic Leon PCP: KATIE Jiménez Status :ADM IN Y Location: ICU ICU02-1 Consult Antibiotic Management Pharmacy has been consulted to manage selected antibiotic: Vancomycin Type of Intervention Type of Consult: New start Suspected Infection Suspected Infection: Pneumonia Prior Doses of Antibiotics Prior Doses of Antibiotics Received/Current Regimen: Vancomycin 1250 mg IV x 1 given 05/05/23 @ 1356, also patient is on piperacillin/tazobactam 3.375 grams Q8H Labs Labs: Sodium 143 mmol/L (136-145) 05/05/23 12:02 Potassium 4.7 mmol/L (3.5-5.1) 05/05/23 12:02 Chloride 106 mmol/L (98-107) 05/05/23 12:02 Carbon Dioxide 32.0 mmol/L (21.0-32.0) 05/05/23 12:02 Anion Gap 5 (5-15) 05/05/23 12:02 BUN 77 mg/dL (7-18) H 05/05/23 12:02 Creatinine 1.70 mg/dL (0.70-1.30) H 05/05/23 12:02 Est GFR (MDRD) Af Amer 53 mL/min (>60) L 05/05/23 12:02 Est GFR (MDRD) Non-Af 44 mL/min (>60) L 05/05/23 12:02 BUN/Creatinine Ratio 45.3 RATIO (10-20) H 05/05/23 12:02 Glucose 370 mg/dL (74-106) H 05/05/23 12:02 Microbiology Microbiology: Microbiology 05/05/23 12:20 Mucosa - Nose SARS-CoV-2, Influenza & RSV (PCR) - Final 05/05/23 12:25 Stool Stool Occult Blood (JOANA) - Final Occult Blood Positive Dosing Weight Weight used for dosin.3 kg Estimated Creatinine Clearance Estimated Creatinine Clearance: ~47 Goal Trough Goal Trough: 15-20 mcg/mL Pharmacy Plan for Drug Dosing Pharmacy Plan for Drug Dosing: Vancomycin 1250 mg IV x1, followed by 500 mg IV Q12H based on weight and renal function Pharmacy Service will continue to monitor and adjust dosing as required. Follow-Up Labs Follow-Up Labs: Trough: Vancomycin Date/Time Labs Ordered Labs to be done on [date and time ordered]: 05/10/23 @ 0130 05/05/23 1442 <Electronically signed by Vic robles> Date _ Vic Leon 05/05/23 1457 <Electronically signed by Abril buckner MD> Cosigner Signature (if applicable): Date Abril Barrera MD CC: ~ Signed [facility] Work Phone: [phone]) 433-174910-14-2023 NoteHNO ID: [id number] Author: Note, Interface Service: ? Author Type: ? Type: Progress Notes Filed: 12/15/2022 6:01 AM Note Text: Epic Scheduled Downtime: 12/15/2022 1:00:00 AM to 12/15/2022 1:28:00 [facility]10-09-2023 NoteHNO ID: [id number] Author: Cha Willingham DO Service: Hospital Medicine Author Type: Physician Type: Progress Notes Filed: 12/10/2022 9:32 PM Note Text: DISCHARGE SUMMARY PATIENT NAME: Drea Copeland Code Status: Full Code Highest Readmission [...] Doctor: Cha Willingham DO Primary Care Provider: [facility] My Medical Team Members: Treatment Team: Attending [...] permissive hypertension was followed by stroke neurologist INSURANCE COORDINATOR, PT and OT to work with patient, [...] preference was to be transferred back to [facility] and George Singh accepted with transport plan for the evening [...] Transitions of Care Critical Issues: SPECIALIST FOLLOW-UP: [facility] Neurologist LABS AND PROCEDURES PENDING AT DISCHARGE: No pending results. FOLLOW-UP APPOINTMENTS ALREADY SCHEDULED WITH A [facility] PROVIDER: No future appointments. ALLERGIES No Known Allergies DISCHARGE MEDICATION: Medication List You have not been prescribed any medications. Discharge Physical Exam: VITAL SIGNS: BP 189/96 Pulse 97 Temp 36.6 ?C (97.9 ?F) (Oral) Resp 18 Ht 170.2 cm (5' 7) Wt 79.5 kg (175 lb 4.8 oz) [...] 1 Active Anticoagulant I have performed the ocqg-px-awbr and relevant services for a total of >30 minutes. SIGNATURE: Cha Willingham DO DATE: December 10, 2022 TIME: 1:43 [facility] NoteHNO ID: [id number] Author: Luz Maria Schulz RT(R) Service: ? Author Type: Technologist Type: Progress Notes Filed: 12/10/2022 9:29 AM Note Text: Summary: MRI Radiology Service Progress Note PATIENT NAME: Drea Copeland DATE OF SERVICE: December 10, 2022 [...] PERIPHERAL IV DATA: Not applicable SIGNED BY: RT Vielka(R) December 10, 2022 9:29 [facility]10-08-2023 NoteHNO ID: [id number] Author: Taiwo Taylor RN Service: Care Management Author Type: Registered Nurse Type: Care Mgt Progress Note Filed: 12/09/2022 1:17 PM Note Text: CARE MANAGEMENT PROGRESS NOTE SERVICE DATE: 12/09/2022 SERVICE TIME: 10:05 AM LOS: [address] Bustillo pt will need to be admitted for probable stroke, but pt is service connected NH and prefers to transfer [facility] to make sure stay is covered. Called NH and spoke to Serenity who will review clinicals that were faxed and call back. 11:05 Josephine from NH called back, states she will fax over consent to transfer form for pt to complete and will review case with their ED physician for approval for ED to ED transfer. If approved, she will arrange transportation. 13:10 Josephine from NH called back, states their ED physician does not want to do ED to ED transfer, would rather pt be evaluated by their neurologist for direct admit to neurology, but they do not have an on-call neurologist over the weekend. Josephine states to admit pt here at [facility] today and they will follow up in the morning for transfer to [facility]. Dr. Bustillo notified. SIGNATURE: Taiwo Taylor RN PATIENT NAME: Drea Copeland DATE: December 09, 2022 TIME: 10:05 AM PAGER/CONTACT #: [phone] HospitalEvaluation note * Diagnosis Onset Date Resolution Status Acute hypoxemic respiratory failure acute Pneumonia acute [facility] Work Phone: Evaluation note* Diagnosis Onset Date Resolution Status Acute hypoxemic respiratory failure acute Pneumonia acute Sepsis without septic shock acute [facility] Work Phone: Evaluation note* Diagnosis Onset Date Resolution Status Acute hypoxemic respiratory failure resolved Pneumonia resolved Sepsis without septic shock resolved [facility] Work Phone: Hospital Discharge instructions Additional Instructions Follow-up in next several days for reevaluation either by your staff there or with his primary care provider. Plenty of fluids. Zofran as needed for nausea which you can put into his feeding tube. His labs show an elevated blood sugar of 436. We gave him insulin here subcu 12 units. His blood sugar will need to be rechecked tonight at dinnertime. Otherwise his labs and the CAT scan of his abdomen did not show any acute pathology.[facility] Work Phone: Reason for referral (narrative)No reason for referral information availableWHolzer [facility] Work Phone: Chief Complaint and Reason for Visit Chief Complaint ACUTE HYPOXIC RESPIR ATORY FAILURE Reason for Visit Acute hypoxemic resp iratory failure Pneumonia Chief Complaint ACUTE HYPOXIC RESPIR ATORY FAILURE ACUTE HYPOXIC RESPIRATORY FAILURE ACUTE HYPOXIC RESPIRATORY FAILURE ACUTE HYPOXIC RESPIRATORY FAILURE ACUTE HYPOXIC RESPIRATORY FAILURE ACUTE HYPOXIC RESPIRATORY FAILURE ACUTE HYPOXIC RESPIRATORY FAILURE ACUTE HYPOXIC RESPIRATORY FAILURE ACUTE HYPOXIC RESPIRATORY FAILURE Reason for Visit Acute hypoxemic resp iratory failure Pneumonia Sepsis without septic shock Chief Complaint ACUTE HYPOXIC RESPIR ATORY FAILURE ACUTE HYPOXIC RESPIRATORY FAILURE ACUTE HYPOXIC RESPIRATORY FAILURE ACUTE HYPOXIC RESPIRATORY FAILURE ACUTE HYPOXIC RESPIRATORY FAILURE ACUTE HYPOXIC RESPIRATORY FAILURE ACUTE HYPOXIC RESPIRATORY FAILURE ACUTE HYPOXIC RESPIRATORY FAILURE ACUTE HYPOXIC RESPIRATORY FAILURE N/V Reason for Visit Acute hypoxemic resp iratory failure Pneumonia Sepsis without septic shock Chief Complaint ACUTE HYPOXIC RESPIR ATORY FAILURE ACUTE HYPOXIC RESPIRATORY FAILURE ACUTE HYPOXIC RESPIRATORY FAILURE ACUTE HYPOXIC RESPIRATORY FAILURE ACUTE HYPOXIC RESPIRATORY FAILURE ACUTE HYPOXIC RESPIRATORY FAILURE ACUTE HYPOXIC RESPIRATORY FAILURE ACUTE HYPOXIC RESPIRATORY FAILURE ACUTE HYPOXIC RESPIRATORY FAILURE N/V [facility] Reason for Visit Acute hypoxemic resp iratory failure Pneumonia Sepsis without septic shock Chief Complaint Admit Date STROKE July 09, 2024 9:02am EORDERS July 20, 2024 10:15 am Reason for Visit Admit Date Cerebrovascular disease July 09, 2024 9: 02am Hyperlipidemia July 09, 2024 9:02am Vascular dementia July 09, 2024 9:02am Chief Complaint Admit Date STROKE July 09, 2024 9:02am EORDERS July 20, 2024 10:15 am CEREBROVASCULAR DISEASE July 22, 2024 8 :07am 30 DAY MONITOR July 22, 2024 9:00a m Cerebrovascular disease, Hyperlipidemia August 18, 2024 12:54pm Advance Directives No Advanced Directives Records Found Advance Directive Response Recorded Date/ Time Living Will No May 05, 2023 11:56am Power of Methods Analyst Data Processing No May 04 11:56am Advance Directive Response Recorded Date/ Time Living Will No May 05, 2023 2:40pm Power of Methods Analyst Data Processing No May 04 2:40pm Advance Directive Response Recorded Date/ Time Living Will No May 15, 2023 9:09am Power of Methods Analyst Data Processing No May 14 9:09am Advance Directive Response Recorded Date/ Time Living Will No June 19, 2023 3:12pm Power of Methods Analyst Data Processing No June 18 3:12pm Advance Directive Response Recorded Date/ Time Living Will No August 10, 2023 2 :02pm Do you have a Healthcare Power of Methods Analyst Data Processing? No August 10, 2023 2:02pm Summary Purpose Family History No Family History Records Found Relationship Condition Age at Onset Recorded Date/T gisela Not Specified Hypertension Unknown Additional Source Comments Care Teams (unrecognized sec tion and content) Team Status: Active Member Role Status Dates Dr. Juan C Barnes MD Primary Care Provider Active Team Status: Inactive Member Role Status Dates Dr. Juan C Barnes MD Primary Care Provider Active Start: July 09, 2024 End: July 09, 2024 Dr. Juan C Barnes MD Referring Provider Active Start: July 09, 2024 End: July 09, 2024 Dr. Werner Mccarty MD Attending Provider Active Start: July 09, 2024 End: July 09, 2024 Team Status: Inactive Member Role Status Dates Dr. Juan C Barnes MD Primary Care Provider Active Start: July 20, 2024 End: July 20, 2024 Dr. Werner Mccarty MD Attending Provider Active Start: July 20, 2024 End: July 20, 2024 Dr. Werner Mccarty MD Referring Provider Active Start: July 20, 2024 End: July 20, 2024 Team Status: Active Member Role Status Dates Maddy Monte , INSURANCE COORDINATOR-C Primary Care Provider Acti ve Team Status: Active Member Role Status Dates Dr. Lawrence Skaggs DO Emergency Provider Active Maddy Monte INSURANCE COORDINATOR-C Primary Care Provider Acti ve Dr. Abril Barrera MD Admit Provider, Attending Prov ider Active Team Status: Active Member Role Status Dates Dr. Lawrence Skaggs DO Emergency Provider Active Maddy Monte , INSURANCE COORDINATOR-C Primary Care Provider Acti ve Dr. Abril Barrera MD Admit Provider, Other Provider Active Dr. Parish Sanchez MD Other Provider Active Dr. Brain Franks MD Other Provider Active Dr. Rafael Mahan DO Attending Provider, Other Provide r Active Dr. Vinnie Castillo MD Other Provider Active Dr. Elvira Jones MD Other Provider Active Dr. Max Mata MD Other Provider Active Dr. Germania Moore MD Other Provider Active Dr. López Pena MD Other Provider Active Dr. Michael Mansfield MD Other Provider Active Dr. Augie Davila MD Other Provider Active Dr. Jd Gonzalez MD Other Provider Active Dr. Vaughn Arnold MD Other Provider Active Dr. Roverto Zavala , DO Referring Provider, Other Provider Active Team Status: Active Member Role Status Dates Dr. Lawrence Skaggs , DO Emergency Provider Active Maddy Monte , INSURANCE COORDINATOR-C Primary Care Provider Acti ve Dr. Abril Barrera MD Admit Provider, Other Provider Active Dr. Roverto Zavala , DO Attending Provider, Other Provider Active Dr. Parish Sanchez MD Other Provider Active Dr. Brain Franks MD Other Provider Active Dr. Rafael Mahan , DO Other Provider Active Dr. Vinnie Castillo MD Other Provider Active Dr. Elvira Jones MD Other Provider Active Dr. Max Mata MD Other Provider Active Dr. Germania Moore MD Other Provider Active Dr. López Pena MD Other Provider Active Dr. Michael Mansfield MD Other Provider Active Dr. Augie Davila MD Other Provider Active Dr. Jd Gonzalez MD Other Provider Active Dr. Vaughn Arnold MD Other Provider Active Team Status: Active Member Role Status Dates Maddy Monte , INSURANCE COORDINATOR-C Primary Care Provider Acti ve Dr. Ryan Larios , DO Attending Provider Active Team Status: Active Member Role Status Dates Dr. Lawrence Skaggs , DO Emergency Provider Active Maddy Monte , INSURANCE COORDINATOR-C Primary Care Provider Acti ve Dr. Abril Barrera MD Admit Provider, Other Provider Active Dr. Roverto Zavala , DO Other Provider Active Dr. Parish Sanchez MD Other Provider Active Dr. Brain Franks MD Other Provider Active Dr. Rafael Mahan , DO Other Provider Active Dr. Vinnie Castillo MD Other Provider Active Dr. Elvira Jones MD Other Provider Active Dr. Max Mata MD Other Provider Active Dr. Germania Moore MD Other Provider Active Dr. López Pena MD Other Provider Active Dr. Michael Mansfield MD Other Provider Active Dr. Augie Davila MD Other Provider Active Dr. Jd Gonzalez MD Other Provider Active Dr. Vaughn Arnold MD Other Provider Active Dr. Ryan Larios , DO Attending Provider Active Team Status: Active Member Role Status Dates Dr. Lawrence Skaggs , DO Emergency Provider Active Maddy Stathopoulos , INSURANCE COORDINATOR-C Primary Care Provider Acti ve Dr. Abril Barrera MD Admit Provider, Other Provider Active Dr. Roverto Zavala , DO Attending Provider, Other Provider Active Team Status: Inactive Member Role Status Dates Dr. Lawrence Skaggs , DO Emergency Provider Active Maddy Stathopoulos , INSURANCE COORDINATOR-C Primary Care Provider Acti ve Dr. Abril Barrera MD Admit Provider, Other Provider Active Dr. Roverto Zavala , DO Attending Provider Active Team Status: Active Member Role Status Dates Maddy Stathopoulos , INSURANCE COORDINATOR-C Primary Care Provider Acti ve Dr. Ryan Larios , DO Attending Provider Active Dr. Roverto Zavala , DO Referring Provider Active Team Status: Active Member Role Status Dates Dr. Lawrence Skaggs , DO Emergency Provider Active Maddy Stathopoulos , INSURANCE COORDINATOR-C Primary Care Provider Acti ve Dr. Abril Barrera MD Admit Provider, Other Provider Active Dr. Roverto Zavala , DO Referring Provider, Other Provider Active Dr. Parish Sanchez MD Other Provider Active Dr. Brain Franks MD Other Provider Active Dr. Rafael Mahan , Other Provider Active Dr. Vinnie Castillo MD Other Provider Active Dr. Elvira Jones MD Other Provider Active Dr. Max Mata MD Other Provider Active Dr. Germania Moore MD Other Provider Active Dr. López Pena MD Other Provider Active Dr. Michael Mansfield MD Other Provider Active Dr. Augie Davila MD Other Provider Active Dr. Jd Gonzalez MD Other Provider Active Dr. Vaughn Arnold MD Other Provider Active Dr. Ryan Larios , DO Attending Provider Active Team Status: Inactive Member Role Status Dates Dr. Venancio Boswell MD Emergency Provider Active Dr. Juan C Barnes MD Primary Care Provider Active Team Status: Inactive Member Role Status Dates Dr. Juan C Barnes MD Primary Care Provider, Referring Provider Active Dr. Ryan Friend , DO Attending Provider Active Team Status: Active Member Role Status Dates Dr. Juan C Barnes MD Primary Care Provider, Referring Provider Active Dr. Ryan Larios DO Attending Provider, Other Prov ider Active Team Status: Inactive Member Role Status Dates Dr. Venancio Boswell MD Attending Provider, Emergency Pro vider Active Dr. Juan C Barnes MD Primary Care Provider Active Team Status: Active Member Role Status Dates Dr. Juan C Barnes MD Primary Care Provider Active Juan C BAEZA Attending Provider Active Team Status: Active Member Role Status Dates Dr. Juan C Barnes MD Primary Care Provider Active Start: July 22, 2024 Dr. Werner Mccarty MD Attending Provider Active Start: July 22, 2024 Dr. Werner Mccarty MD Referring Provider Active Start: July 22, 2024 Team Status: Active Member Role Status Dates Dr. Juan C Barnes MD Primary Care Provider Active Start: July 22, 2024 Dr. Marky Matamoros MD Attending Provider Active Start: July 22, 2024 Dr. Werner Mccarty MD Referring Provider Active Start: July 22, 2024 Team Status: Inactive Member Role Status Dates Dr. Juan C Barnes MD Primary Care Provider Active Start: August 18, 2024 End: August 18, 2024 Dr. Werner Mccarty MD Attending Provider Active Start: August 18, 2024 End: August 18, 2024 Dr. Werner Mccarty MD Referring Provider Active Start: August 18, 2024 End: August 18, 2024 Team Status: Active Member Role Status Dates Dr. Juan C Barnes MD Primary Care Provider Active Start: August 18, 2024 Dr. Zane Wetzel MD Attending Provider Active S tart: August 18, 2024 Goals (unrecognized section and content) Goals may be documented in a n alternate sectionGoals may be documented in an alternate sectionGoals may be documented in an alternate section (unrecognized sect ion and content) No Status Records FoundNo Status Records Found INFORMATION SOURCE (unrecogn ized section and content) DATE CREATED AUTHOR 05/30/2023 [facility] DATE CREATED AUTHOR 'S CONNIE VASQUEZ 08/31/2024 [facility] FOR RECORDS PERTAINING TO PATIENTS WHO ARE [...] BE BASED ON THE PRIMARY CLINICAL RECORDS. [facility] [employer] [facility]. provides no warranty or guarantee of the accuracy or completeness of information in this document.
--- NOTE | 2024-09-02 07:22 | MRI_ITS ---
PROCEDURE: BRAIN W/WO CONTRAST 09/02/2024 REASON FOR EXAM: VASCULAR DEMENTIA; HX CVA TECHNIQUE: BRAIN W/WO CONTRAST Multiplanar and multisequence images were obtained. CONTRAST: Clariscan VOLUME: 16 mL COMPARISON: CT head without contrast, 05/05/2019. FINDINGS: There is extensive periventricular and subcortical white matter signal abnormality in both cerebral hemispheres. There are multiple chronic lacunar infarctions in the periventricular and subcortical white matter of both cerebral hemispheres. There is cerebral atrophy with concomitant ventriculomegaly. There is a normal sulcal pattern and gyral configuration. There is no evidence of acute intracranial hemorrhage or infarction. The castillo-white differentiation is well preserved. There is no evidence of restricted diffusion. The basilar cisterns are normal. There are normal flow voids demonstrated in the recognized intracranial vessels. There is abnormal signal in the white matter of the midbrain and fritz, to the left of midline. The cerebellum is unremarkable. The cerebellar pontine angles are normal. The craniovertebral junction is normal. The sella and suprasellar regions are normal. The orbits and retro-orbital regions are unremarkable. The nasal septum is midline. There is no significant paranasal sinus disease. The mastoid air cells are clear. There is normal bone marrow signal in the skull base and calvarium. MRI/Brain W/WO Contrast IMPRESSION: 1. Severe chronic ischemic white matter disease. 2. Multiple lacunar infarctions in the periventricular and subcortical white m atter of both cerebral hemispheres. 3. White matter signal abnormality in the left side of the midbrain and fritz. 4. Cerebral atrophy. 5. No evidence of acute intracranial pathology. Reading Location: [id number]
== END | disposition home or self-care (01) ==
LOC: OPMRI 07:15
PROVIDERS: PCP Family Medicine; Referring Provider Psychiatry & Neurology Neurology; Visit Provider Psychiatry & Neurology Neurology
DX: F01.50 Vascular dementia, unspecified severity, without behavioral disturbance, psychotic disturbance, mood disturbance, and anxiety (principal); I67.9 Cerebrovascular disease, unspecified
CPT/HCPCS: 70553; A9585

== ENCOUNTER → 2024-11-09 | Outpatient (CLI) | payer MEDICAID, SELFPAY ==
--- OUTSIDE RECORDS SUMMARY | 2024-11-09 19:22 | XMS RPT_ITS | CCD ---
Author Organization [facility] Care Team Providers Care Supervisor Metal Cans Name Role Phone Dr. Lawrence Skaggs Emergency Provider KATIE Monte Primary Care Provider Dr. Abril Barrera Admit Provider Dr. Abril Barrera Other Provider Dr. Parish Sanchez Other Provider Dr. Brain Franks Other Provider Dr. Rafael Mahan Attending Provider [phone] Rafael Mahan Other Provider Dr. Vinnie Castillo Other Provider [phone] Elvira Jones Other Provider Dr. Max Mata Other Provider Dr. Germania Moore Other Provider Dr. López Pena Other Provider Unavailable Dr. Michael Mansfield Other Provider Dr. Augie Davila Other Provider Dr. Jd Gonzalez Other Provider Dr. Vaughn Arnold Other Provider Dr. Roverto Zavala Referring Provider Dr. Roverto Zavala Other Provider [phone] Dr. Roverto Zavala Attending Provider [phone] Dr. Ryan Larios Attending Provider DEAN MCGINNIS Admitting Unavailable CHA WILLINGHAM Attending [...] [phone] Dr. Roverto Zavala Referring Provider Dr. Roverto Zavala Other Provider Dr. Roverto [...] Provider Damari SOMMERS, Dr. Degroot Attending Provider Clare SOMMERS, Dr. Nam Hardwick Attending Provider Molly, Juan C Primary Care Unavailable Saturnino, Marky Attending Unavailable Baddour, Werner Referring Unavailable Damari, Zane Attending Unavailable Barnes, Juan C Primary Care Unavailable Barnes, Juan C Primary Care Unavailable Barnes, Juan C Referring Unavailable Friend, Ryan Consulting Unavailable Friend, Ryan Attending Unavailable Atanasov, Constance Attending Unavailable Barnes, Juan C Primary Care Unavailable Barnes, Juan C Referring Unavailable Barnes, Juan C Primary Care Unavailable Barnes, Juan C Referring Unavailable Baddour, Werner Attending Unavailable Barnes, Juan C Primary Care Unavailable Barnes, Juan C Referring Unavailable Friend, Ryan Attending Unavailable Baddour, Werner Referring Unavailable Barnes, Juan C Primary Care Unavailable Baddour, Werner Attending Unavailable Baddour, Werner Referring Unavailable Barnes, Juan C Primary Care Unavailable Baddour, Werner Attending Unavailable Baddour, Werner Referring Unavailable Barnes, Juan C Primary Care Unavailable Baddour, Werner Attending Unavailable Baddour, Werner Attending Unavailable Barnes, Juan C Primary Care Unavailable Baddour, Werner Referring Unavailable Barnes , Dr. Irizarry Primary Care Provider Bibiana SOMMERS, Dr. Caldera Attending Provider Molly SOMMERS, Dr. Irizarry Referring Provider Medications Current Medications Medication Drug Class(es) Dates Sig (Normalized) Sig (Original) acetaminophen 500 mg oral capsule (5 sources) Start: 06-19-2023 Acetaminophen 500 mg capsule Active 500 mg feeding tube EVERY 6 HOURS as needed for pain June 19, 2023 12:00am atorvastatin 80 mg oral tablet (8 sources) HMG-CoA Reductase Inhibitor Start: 05-05-2023 Atorvastatin 80 mg tablet Active 80 mg feeding tube AT BEDTIME May 05, 2023 1:00am CHOLESTEROL bisacodyl 10 mg rectal suppository (5 sources) Stimulant Laxative Start: 06-19-2023 Bisacodyl 10 mg suppository Active 10 mg RC DAILY as needed for constipation June 19, 2023 12:00am carvedilol 6.25 mg oral tablet (12 sources) alpha-Adrenergic Kate, beta-Adrenergic Kate Start: 08-17-2023 Carvedilol 6.25 mg tablet Active 6.25 mg feeding tube TWICE A DAY 0 August 17, 2023 12:00am must administer with a meal/food Start: 05-05-2023 End: 08-17-2023 Carvedilol 25 mg tablet Disc ontinued 25 mg feeding tube TWICE A DAY May 05, 2023 1:00am August 17, 2023 4:05pm HIGH BLOOD PRESSURE cholecalciferol 0.05 mg oral capsule (8 sources) Vitamin D Start: 05-05-2023 Cholecalciferol (Vitamin D3) 50 mcg (2,000 unit) capsule Active 50 ug feeding tube DAILY May 05, 2023 1:00am VIT D DEFICIENCY clopidogrel 75 mg oral tablet (1 source) P2Y12 Platelet Inhibitor Start: 11-09-2024 take 1 tablet by mouth once daily Clopidogrel 75 mg tablet Active 75 mg PO daily 30 5 November 09, 2024 12:00am Take 1 tablet via g-tube daily. Dextromethorphan / guaiFENesin (1 source) Uncompetitive K-kitehu-S-asparta te Receptor Antagonist, Sigma-1 Agonist Start: 11-09-2024 take 1 mL by mouth every six hours as needed Dextromethorphan-Gua ifenesin 5-100 mg/5 mL liquid Active 10 mL PO EVERY 6 HOURS as needed November 09, 2024 12:00am esomeprazole 40 mg granules for oral suspension (5 sources) Proton Pump Inhibitor Start: 06-19-2023 Esomeprazole Magnesium (Nexium Packet) [address] for susp in packet Active 40 mg feeding tube TWICE A DAY June 19, 2023 12:00am Insulin Glargine (3 sources) Insulin Analog Start: 05-05-2023 Insulin Glargine Active 18 UNIT SC EVERY EVENING May 05, 2023 1:00am DO NOT HOLD UNLESS APPROVED BY MD Start: 05-05-2023 Insulin Glargi ne Active 16 UNIT SC EVERY EVENING May 05, 2023 1:00am DO NOT HOLD UNLESS APPROVED BY MD Start: 05-05-2023 Insulin Glargi ne Active 16 UNIT SC EVERY EVENING May 05, 2023 12:00am DO NOT HOLD UNLESS APPROVED BY MD Insulin Glargine (Lantus U-100 Insulin) 100 unit/mL solution (4 sources) Start: 11-19-2023 Insulin Glargi ne (Lantus U-100 Insulin) 100 unit/mL solution Active 10 U SC EVERY EVENING November 19, 2023 12:00am Insulin Glargine-Yfgn (1 source) Start: 05-05-2023 Insulin Glargi ne-Yfgn Active 16 UNIT SC EVERY EVENING May 05, 2023 12:00am ammonium lactate 120 mg/ml topical cream (7 sources) Start: 05-05-2023 Ammonium Lacta te 12 % cream Active 1 NMA TOPICAL TWICE A DAY as needed for dry skin May 05, 2023 1:00am Magnesium Hydroxide (4 sources) Start: 11-19-2023 take 1 mL by mouth o nce daily as needed for constipation Magnesium Hydroxide (Milk Of Magnesia) 400 mg/5 mL suspension Active 30 mL PO DAILY as needed for constipation November 19, 2023 12:00am Menthol / Zinc Oxide (4 sources) Start: 08-17-2023 Menthol-Zinc O xide (Calmoseptine) 0.44-20.6 % Ointment Active 1 NMA TOPICAL TWICE A DAY 0 0 August 17, 2023 12:00am Please contact the information source for Protocol details. Start: 08-17-2023 Menthol-Zinc O xide (Calmoseptine) 0.44-20.6 % Ointment Active 1 NMA TOPICAL TWICE A DAY 0 August 17, 2023 12:00am Please contact the information source for Protocol details. mineral oil 1000 mg/ml enema (4 sources) Start: 07-09-2024 Mineral Oil en delmy Active 118 mL RC daily as needed July 09, 2024 12:00am discard any unused portion Multivitamin With Iron-Pecan Gap al (3 sources) Start: 05-05-2023 Multivitamin W ith Iron-Mineral Active 1 TABLET feeding tube DAILY May 05, 2023 1:00am Start: 05-05-2023 Multivitamin W ith Iron-Mineral Active 1 TABLET feeding tube DAILY May 05, 2023 12:00am olmesartan medoxomil 40 mg oral tablet (1 source) Angiotensin 2 Receptor Kate Start: 11-09-2024 take 1 tablet by mouth once daily in the morning Olmesartan 40 mg tablet Active 40 mg PO EVERY MORNING 30 5 November 09, 2024 12:00am Take 1 tablet via g-tube every morning ondansetron 4 mg disintegrating oral tablet (6 sources) Serotonin-3 Receptor Antagonist Start: 05-15-2023 take 1 tablet by mouth every six hours as needed for nausea and vomiting Ondansetron 4 mg tablet,disintegra ting Active 4 mg PO EVERY 6 HOURS as needed for nausea and vomiting 10 0 May 15, 2023 12:00am Zofran for the nausea. You can put it through his feeding tube. Completed/Discontinued Medications Medication Drug Class(es) Dates Sig (Normalized) Sig (Original) aspirin 81 mg chewable tablet (8 sources) Platelet Aggregation Inhibitor, Nonsteroidal Anti-inflammatory Drug Start: 05-05-2023 take 1 tablet by mouth once daily Aspirin (Adult Aspirin Regimen) 81 mg tablet,delayed release (DR/EC) Active 81 MG PO DAILY May 05, 2023 12:00am via peg tube Start: 05-05-2023 End: 06-19-2023 Aspirin 81 mg tablet,chewabl e Discontinued 1 {tbl} feeding tube DAILY May 05, 2023 1:00am June 19, 2023 2:48pm CARDIOVASCULAR doxycycline hyclate 100 mg oral capsule (7 sources) Tetracycline-class Drug Start: 05-10-2023 End: 06-19-2023 take 1 capsule by mouth twice daily Doxycycline Hyclate 100 mg capsule Discontinued 100 mg PO TWICE A DAY 4 2 0 May 10, 2023 1:00am June 19, 2023 2:49pm Insulin Glargine 100 unit/mL solution (4 sources) Start: 05-05-2023 End: 08-17-2023 Insulin Glargine 100 unit/mL solution Discontinued 18 U SC EVERY EVENING May 05, 2023 1:00am August 17, 2023 4:04pm DIABETES DO NOT HOLD UNLESS APPROVED BY MD Start: 05-05-2023 End: 08-17-2023 Insulin Glargine 100 unit/mL solution Discontinued 18 U SC EVERY EVENING May 05, 2023 1:00am August 17, 2023 4:04pm DO NOT HOLD UNLESS APPROVED BY 3 ml insulin lispro 100 unt/ml pen injector (5 sources) Insulin Analog Start: 06-19-2023 End: 07-09-2024 Insulin Lispro 100 unit/mL insulin pen Discontinued 1 sliding scale dose SC 4 TIMES DAILY June 19, 2023 12:00am July 09, 2024 9:13am Please contact the information source for Protocol details. Start: 06-19-2023 Insulin Lispro Active 1 sliding scale dose SC 4 TIMES DAILY June 19, 2023 12:00am losartan potassium 50 mg oral tablet (8 sources) Angiotensin 2 Receptor Kate Start: 05-05-2023 End: 08-17-2023 Losartan 50 mg tablet Discontinued 50 mg feeding tube DAILY May 05, 2023 1:00am August 17, 2023 4:03pm HIGH BLOOD PRESSURE metoclopramide 10 mg oral tablet (4 sources) Dopamine-2 Receptor Antagonist Start: 08-10-2023 End: 08-17-2023 Metoclopramide Hcl 10 mg tablet Discontinued 10 mg feeding tube 4 TIMES DAILY August 10, 2023 12:00am August 17, 2023 4:03pm Multivitamin With Iron-Mineral tablet (4 sources) Start: 05-05-2023 End: 07-09-2024 Multivitamin With Iron-Mineral tablet Discontinued 1 {tbl} feeding tube DAILY May 05, 2023 1:00am July 09, 2024 9:14am VITAMIN Start: 05-05-2023 End: 07-09-2024 Multivitamin With Iron-Pecan Gap al tablet Discontinued 1 {tbl} feeding tube DAILY May 05, 2023 1:00am July 09, 2024 9:14am pantoprazole 40 mg delayed release oral tablet (7 sources) Proton Pump Inhibitor Start: 05-10-2023 End: 06-19-2023 take 1 tablet by mouth twice daily Pantoprazole 40 mg Tablet,Delayed Release (Dr/Ec) Discontinued 40 mg PO TWICE A DAY 0 0 May 10, 2023 1:00am June 19, 2023 2:57pm Thiamine (8 sources) Start: 05-05-2023 End: 07-09-2024 Thiamine Hcl (Vitamin B1) 100 mg tablet Discontinued 100 mg feeding tube DAILY May 05, 2023 1:00am July 09, 2024 9:14am VITAMIN B DIFICIENCY Start: 05-05-2023 End: 07-09-2024 Thiamine Hcl (Vitamin B1) 10 0 mg tablet Discontinued 100 mg feeding tube DAILY May 05, 2023 1:00am July 09, 2024 9:14am Start: 05-05-2023 Thiamine Hcl ( Vitamin B1) Active 100 MG feeding tube DAILY May 05, 2023 1:00am Start: 05-05-2023 Thiamine Hcl ( Vitamin B1) Active 100 MG feeding tube DAILY May 05, 2023 12:00am Start: 05-05-2023 take 100 mg by mouth once daily Thiamine Hcl (Vitamin B1) Active 100 MG PO DAILY May 05, 2023 12:00am via peg tube Problems Active Problems Problem Classification Problem Date Documented Da te Episodic/Chronic Abdominal pain (10 sources) Abdominal pain; Translations: [Unspecified abdominal pain] 05-15-2023 Episodic Acute cerebrovascular disease (1 source) Cerebral infarction, unspecified; Translations: [Acute ischemic stroke (HCC)] Onset: Chronic Delirium, dementia, and amnestic and other cognitive disorders (10 sources) Vascular dementia ; Translations: [Vascular dementia without behavioral disturbance] Onset: 5 07-09-2024 Chronic Diabetes mellitus with complications (6 sources) Hyperglycemia due to diabetes mellitus; Translations: [Type 2 diabetes mellitus with hyperglycemia] 05-15-2023 Chronic Disorders of lipid metabolism (8 sources) Hyperlipidemia; Translations: [Hyperlipidemia, unspecified] 07-09-2024 Chronic Gastroduodenal ulcer (except hemorrhage) (5 sources) Ulcer of duodenum; Translations: [Duodenal ulcer, unspecified as acute or chronic, without hemorrhage or perforation] Onset: 4 10-21-2023 Chronic Gastrointestinal hemorrhage (4 sources) Acute upper gastrointestinal hemorrhage; Translations: [Gastrointestinal hemorrhage, unspecified] 08-25-2023 Episodic Nausea and vomiting (6 sources) Vomiting; Translations: [Vomiting, unspecified] 05-15-2023 Episodic Other and ill-defined cerebrovascular disease (8 sources) Cerebrovascular disease; Translations: [Cerebrovascular disease, unspecified] 07-09-2024 Chronic Other and ill-defined cerebrovascular disease (2 sources) Cerebrovascular disease, unspecified; Translations: [Cerebrovascular disease, unspecified] Onset: 05-22-202 5 Chronic Other circulatory disease (6 sources) History of embolic cerebrovascular accident; Translations: [Personal history of transient ischemic attack (TIA), and cerebral infarction without residual deficits] 05-15-2023 Episodic Other disorders of stomach and duodenum (4 sources) Pyloric obstruction; Translations: [Adult hypertrophic pyloric stenosis] 08-25-2023 Episodic Other nutritional; endocrine; and metabolic disorders (6 sources) H/O: diabetes mellitus; Translations: [Personal history of other endocrine, nutritional and metabolic disease] 05-15-2023 Episodic Pneumonia (except that caused by tuberculosis or sexually transmitted disease) (12 sources) Pneumonia; Translations: [Pneumonia, unspecified organism] 05-05-2023 Episodic Respiratory failure; insufficiency; arrest (adult) (12 sources) Acute hypoxemic respiratory failure; Translations: [Acute respiratory failure with hypoxia] 05-05-2023 Episodic Septicemia (except in labor) (10 sources) Sepsis without septic shock; Translations: [Sepsis, [...] Test Name Value Interpretation Reference Range Facility Brain W/WO Contraston 2024 Brain W/WO Contrast [facility] [address] [place] [address] Brain W/WO Contrast MR#: [id number] Acct: [id number] Name: DREA COPELAND Compa Rep #: [id number] : 1960 M 64 From: Wally Leon MD PCP: Dr. Juan C Barnes MD Status: [facility] Study: Brain W/WO Contrast Date of Exam: 09/02/24 Exam# [id number] Ordering Dr: Werner Mccarty MD PROCEDURE: BRAIN W/WO CONTRAST 09/02/2024 REASON FOR EXAM: VASCULAR DEMENTIA; HX CVA TECHNIQUE: BRAIN W/WO CONTRAST Multiplanar and multisequence images were obtained. CONTRAST: Clariscan VOLUME: 16 mL COMPARISON: CT head without contrast, 05/05/2019. FINDINGS: There is extensive periventricular and subcortical white matter signal abnormality in both cerebral hemispheres. There are multiple chronic lacunar infarctions in the periventricular and subcortical white matter of both cerebral hemispheres. There is cerebral atrophy with concomitant ventriculomegaly. There is a normal sulcal pattern and gyral configuration. There is no evidence of acute intracranial hemorrhage or infarction. The castillo-white differentiation is well preserved. There is no evidence of restricted diffusion. The basilar cisterns are normal. There are normal flow voids demonstrated in the recognized intracranial vessels. There is abnormal signal in the white matter of the midbrain and fritz, to the left of midline. The cerebellum is unremarkable. The cerebellar pontine angles are normal. The craniovertebral junction is normal. The sella and suprasellar regions are normal. The orbits and retro-orbital regions are unremarkable. The nasal septum is midline. There is no significant paranasal sinus disease. The mastoid air cells are clear. There is normal bone marrow signal in the skull base and calvarium. MRI/Brain W/WO Contrast IMPRESSION: 1. Severe chronic ischemic white matter disease. 2. Multiple lacunar infarctions in the periventricular and subcortical white matter of both cerebral hemispheres. 3. White matter signal abnormality in the left side of the midbrain and fritz. 4. Cerebral atrophy. 5. No evidence of acute intracranial pathology. Reading Location: [id number] CC: Dr. Juan C Barnes MD; Dr. Werner Mccarty MD [employer] Liaison Officer: Signed Normal [facility] Magnetic resonance imaging r eportOrdered By: Wally Leon on 09-02-2024 Study report [facility] Imaging Services [address] [place], [place] [address] Brain W/WO Contrast MR#: [id number] Acct: [id number] Name: DREA COPELAND Rep #: [id number] : 1960 M 64 From: Cristo Leon MD PCP: Dr. Juan C Barnes MD Status: [facility] Study:Brain W/WO Contrast Date of Exam: 09/02/24 Exam# [id number] Ordering Dr: Werner Mccarty MD PROCEDURE: BRAIN W/WO CONTRAST 09/02/2024 REASON FOR EXAM: VASCULAR DEMENTIA; HX CVA TECHNIQUE: BRAIN W/WO CONTRAST Multiplanar and multisequence images were obtained. CONTRAST: Clariscan VOLUME: 16 mL COMPARISON: CT head without contrast, 05/05/2019. FINDINGS: There is extensive periventricular and subcortical white matter signal abnormality in both cerebral hemispheres. There are multiple chronic lacunar infarctions in the periventricular and subcortical white matter of both cerebral hemispheres. There is cerebral atrophy with concomitant ventriculomegaly. There is a normal sulcal pattern and gyral configuration. There is no evidence of acute intracranial hemorrhage or infarction. The castillo-white differentiation is well preserved. There is no evidence of restricted diffusion. The basilar cisterns are normal. There are normal flow voids demonstrated in the recognized intracranial vessels. There is abnormal signal in the white matter of the midbrain and fritz, to the left of midline. The cerebellum is unremarkable. The cerebellar pontine angles are normal. The craniovertebral junction is normal. The sella and suprasellar regions are normal. The orbits and retro-orbital regions are unremarkable. The nasal septum is midline. There is no significant paranasal sinus disease. The mastoid air cells are clear. There is normal bone marrow signal in the skull base and calvarium. MRI/Brain W/WO Contrast IMPRESSION: 1. Severe chronic ischemic white matter disease. 2. Multiple lacunar infarctions in the periventricular and subcortical white matter of both cerebral hemispheres. 3. White matter signal abnormality in the left side of the midbrain and fritz. 4. Cerebral atrophy. 5. No evidence of acute intracranial pathology. Reading Location: [id number] CC: Dr. Juan C Barnes MD; Dr. Werner Mccarty MD ~ [employer]ia[employer] Officer: Signed [facility] Work Phone: Duplex ultrasound of carotid artery reportOrdered By: Nam Sparks on 08-21-2024 Study report [facility] [address] [place] [address] Carotid Duplex Ultrasound 08/18/24 1307 MR#: [id number] Acct: [id number] Name: DREA COPELAND Rep #:[id number] : 1960 64 From: Nam Sparks MD [...] the left vertebral artery. Procedure Carotid Duplex 32917. This is a Carotid Duplex examination using [...] Juan C Barnes Performed By: Mars Flores, Juana 08/21/242220 Date _ Nam Sparks MD CC: Dr. Juan C Barnes MD; Dr. Werner Mccarty MD ~ Date Dictated: 08/18/24 1307 Date Transcribed: 08/21/242220 [employer]ia[employer] Officer: Signed [facility] Other Phone: Carotid Duplex Ultrasoundon 08-18-2024 Carotid Duplex Ultrasound [facility] [address] [place] [address] Carotid Duplex Ultrasound 08/18/241306 MR#: [id number] Acct: [id number] Name: DREA COPELAND Rep #: [id number] : 1960 64 From: Nam Sparks MD [...] the left vertebral artery. Procedure Carotid Duplex 62882. This is a Carotid Duplex examination using [...] Date Dictated: 08/18/24 1307 Date Transcribed: 08/21/242220 [employer]ia[employer] Officer: Signed Normal [facility] Echo Completeon 08-18-2024 Echo Complete [facility] [address] [place] [address] Echo Complete 08/18/24 1346 MR#: [id number] Acct: [id number] Name: DREA COPELAND Rep #: [id number] : 1960 64 From: Zane Wetzel MD [...] Dr. Werner Mccarty MD Date Dictated: 08/18/24 134 Date Transcribed: 08/18/24 1427 [employer]ia[employer] Officer: Signed Normal [facility] Echocardiogram study reportO rdered By: Zane Wetzel on 08-18-2024 Study report [facility] [address] [place] [address] Echo Complete 08/18/241345 MR#: [id number] Acct: [id number] Name: DREA COPELAND Rep #:[id number] : 1960 64 From: Zane Myles Attending Dr: Dr. Werner Mccarty MD Status: REG CLI Ordering Dr: Werner Mccarty MD Date: 08/18/24 Location: [facility] Sex: M AA Admitted: Reason For [...] ~ Date Dictated: 08/18/24 1346 Date Transcribed: 08/18/24 142 [employer]ia[employer] Officer: Signed [facility] Work Phone: AT III Func / Immunolon 07-04 AT3 AG, IMMUNOL 124 Normal 72-124 [facility] Comment on above: Order Comment: Test( s) 386729-Umyezylyyrlo Antigenwas developed and its performance characteristicsdetermined by [facility]. It has not been cleared or approvedby the Food and Drug Administration. Performed By: #### L 4500.5000, L101.9900, L503.5510, L3100.1725, L3100.7250, L501.9520, L501.5200, L3100.5600, L3100.7050, L500.4100, L3100.5450, L3100.5800, L3100.5700, L3300.8000, L500.4050, L3100.7325, L3300.0450, L100.0500, L4500.2000, L3100.7300, L3100.8408, L4500.0100, L3300.8200, L503.0106 ####[facility] [address] [place], [address] AT3 FUNCTIONAL 151 High 75-135 [facility] Comment on above: Order Comment: Test( s) 314815-Omdggctjmjrv Antigenwas developed and its performance characteristicsdetermined by [email or web address]. It has not been cleared or approvedby [...] L100.0500, L4500.2000, L3100.7300, L3100.8408, L4500.0100, L3300.8200, L503.0106 ####[facility] [address] [place], [place], [id number] Anticardiolipin IgA,G,Mon ANTICARDIO IgA < 9 Normal 0-11 [facility] Comment on above: Order Comment: Test( s) 010092-Lshxdgmysbhe Antigenwas developed and its performance characteristicsdetermined by [email or web address]. It has not been cleared or approvedby the Food and Drug Administration. Result Comment: Nega tive: <12 Indeterminate: 12 - 20 Low-Med Positive: >20 - 80 High Positive: >80 Performed By: #### L 4500.5000, L101.9900, L503.5510, L3100.1725, L3100.7250, L501.9520, L501.5200, L3100.5600, L3100.7050, L500.4100, L3100.5450, L3100.5800, L3100.5700, L3300.8000, L500.4050, L3100.7325, L3300.0450, L100.0500, L4500.2000, L3100.7300, L3100.8408, L4500.0100, L3300.8200, L503.0106 ####[facility] [address] [facility] [place], [place], [address] ANTICARDIO IgG < 9 Normal 0-14 [facility] Comment on above: Order Comment: Test( s) 171878-Fiqcqnwtxblv Antigenwas developed and its performance characteristicsdetermined by [email or web address]. It has not been cleared or approvedby the Food and Drug Administration. Result Comment: Nega tive: <15 Indeterminate: 15 - 20 Low-Med Positive: >20 - 80 High Positive: >80 Performed By: #### L 4500.5000, L101.9900, L503.5510, L3100.1725, L3100.7250, L501.9520, L501.5200, L3100.5600, L3100.7050, L500.4100, L3100.5450, L3100.5800, L3100.5700, L3300.8000, L500.4050, L3100.7325, L3300.0450, L100.0500, L4500.2000, L3100.7300, L3100.8408, L4500.0100, L3300.8200, L503.0106 ####[facility] [address] [place], [place], [address] Anticardio.IgM < 9 Normal 0-12 [facility] Comment on above: Order Comment: Test( s) 117217-Lhhtlrqlznfq Antigenwas developed and its performance characteristicsdetermined by [email or web address]. It has not been cleared or approvedby the Food and Drug Administration. Result Comment: Nega tive: <13 Indeterminate: 13 - 20 Low-Med Positive: >20 - 80 High Positive: >80 Performed By: #### L 4500.5000, L101.9900, L503.5510, L3100.1725, L3100.7250, L501.9520, L501.5200, L3100.5600, L3100.7050, L500.4100, L3100.5450, L3100.5800, L3100.5700, L3300.8000, L500.4050, L3100.7325, L3300.0450, L100.0500, L4500.2000, L3100.7300, L3100.8408, L4500.0100, L3300.8200, L503.0106 ####[facility] [address] [place], [place], [address] Complement C3on 07-31-2024 COMP C3 184 mg/dL High 82-167 [facility] Comment on above: Order Comment: Test( s) 930083-Fpmdgklqvvda Antigenwas developed and its performance characteristicsdetermined by [email or web address]. It has not been cleared or approvedby the Food and Drug Administration. Performed By: #### L 4500.5000, L101.9900, L503.5510, L3100.1725, L3100.7250, L501.9520, L501.5200, L3100.5600, L3100.7050, L500.4100, L3100.5450, L3100.5800, L3100.5700, L3300.8000, L500.4050, L3100.7325, L3300.0450, L100.0500, L4500.2000, L3100.7300, L3100.8408, L4500.0100, L3300.8200, L503.0106 ####[facility] [address] [place], [place], [id number] Complement C4on 07-31-2024 COMPLEMENT, C4 29 mg/dL Normal 12-38 [facility] Comment on above: Order Comment: Test( s) 621657-Acayszeectsl Antigenwas developed and its performance characteristicsdetermined by [email or web address]. It has not been cleared or approvedby the Food and Drug Administration. Performed By: #### L 4500.5000, L101.9900, L503.5510, L3100.1725, L3100.7250, L501.9520, L501.5200, L3100.5600, L3100.7050, L500.4100, L3100.5450, L3100.5800, L3100.5700, L3300.8000, L500.4050, L3100.7325, L3300.0450, L100.0500, L4500.2000, L3100.7300, L3100.8408, L4500.0100, L3300.8200, L503.0106 ####[facility] [address] [place], [place], [id number] Complement CH50on 07-31-2024 COMPLEMENT,CH50 > 60 Normal >41 [facility] Comment on above: Order Comment: Test( s) 737214-Idgskecvtvca Antigenwas developed and its performance characteristicsdetermined by [email or web address]. It has not been cleared or approvedby [...] L100.0500, L4500.2000, L3100.7300, L3100.8408, L4500.0100, L3300.8200, L503.0106 ####[facility] [address] [place], [address] Fact V Leiden Mutationon FACTOR V LEIDEN Comment Normal . [facility] Comment on above: Order Comment: Test( s) 505130-Tyxfxqywkfqu Antigenwas developed and its performance characteristicsdetermined by [facility]. It has not been cleared or approvedby the Food and Drug Administration. Result Comment: Resu lt: c.1601G>A (p.Djk367Ydf) - Not Detected This result is not associated with an increased risk for venous thromboembolism. See Additional Clinical Information and Comments. Additional Clinical Information: Venous thromboembolism is a multifactorial disease influenced by genetic, environmental, and circumstantial risk factors. The c.1601G>A (p. Pql052Odr) variant in the F5 gene, commonly referred [...] c.*97G>A variant and Factor V Leiden (PMID: 82365412). Additional risk factors include but are not [...] health care providers to discuss results at [phone] ([phone]). Test Details: Variant Analyzed: c.1601G>A (p. Rjz987Fft), referred to as Factor V Leiden Methods/Limitations: [...] developed and its performance characteristics determined by [email or web address]. It has not been cleared or approved by the Food and Drug Administration. References: Dylan Rucker, Zeny MATHEW, Jer R, Gerson WW, Miles JH; [employer] Professional Practice and Guidelines Committee. Addendum: [employer] consensus statement on factor V Leiden mutation testing. Ilana Med. 2020May 06. doi: 10.1038/[id number]-t. PMID: 31057116. Benedicto PEREZ. Factor V Leiden Thrombophilia. 1998July 15 (Updated 2017Mar 07). In: Steve MP, Bobbi HH, Jared RA, et al., editors. Thien(R) (Internet). [place] ([place]): [facility], [place]; 0397-3702. Available from: https://www.ncbi.nlm.nih.gov/books/REN5814/ Reece Rucker, Zeny MATHEW, Rickey X, Aime B, Diana EB, Ana P, Jass CS; [employer] Laboratory Roof Bolter Operator Committee. Venous thromboembolism laboratory testing (factor V Leiden and factor II c. *97G>A), 2018 update: a technical standard of the [employer] and [employer] ([employer]). Ilana Med. 2018 Feb;20(12): 4450-3465. doi: 10.1038/[id number]-t. Epub 2017Dec 06. PMID: 53120471. Performed By: #### L 4500.5000, L101.9900, L503.5510, L3100.1725, L3100.7250, L501.9520, L501.5200, L3100.5600, L3100.7050, L500.4100, L3100.5450, L3100.5800, L3100.5700, L3300.8000, L500.4050, L3100.7325, L3300.0450, L100.0500, L4500.2000, L3100.7300, L3100.8408, L4500.0100, L3300.8200, L503.0106 ####[place] [address] [facility] [place], [address] Reviewed By Comment Normal . [facility] Comment on above: Order Comment: Test( s) 875381-Ykhostrpqllc Antigenwas developed and its performance characteristicsdetermined by [facility]. It has not been cleared or approvedby the Food and Drug Administration. Result Comment: Tech nical Component performed at [facility] Professional Component performed by: Leno Allen, PhD, [facility] [id number], [facility], [address] [place] [address] Performed By: #### L 4500.5000, L101.9900, L503.5510, L3100.1725, L3100.7250, L501.9520, L501.5200, L3100.5600, L3100.7050, L500.4100, L3100.5450, L3100.5800, L3100.5700, L3300.8000, L500.4050, L3100.7325, L3300.0450, L100.0500, L4500.2000, L3100.7300, L3100.8408, L4500.0100, L3300.8200, L503.0106 ####[facility] [address] [place], [address] Factor II, DNA Analysison FACTOR II, DNA Comment Normal . [facility] Comment on above: Order Comment: Test( s) 510890-Jiypadrfhqcu Antigenwas developed and its performance characteristicsdetermined by [facility]. It has not been cleared or approvedby [...] the F2 gene and a c.1601G>A (p. Pqb606Zwl) variant in the F5 gene (commonly referred to as Factor V Leiden) have an approximately 20- fold increased risk for venous thromboembolism. Risks are likely to be even higher in more complex genotype combinations involving the F2 c.*97G>A variant and Factor V Leiden (PMID: 39929068). Additional risk factors include but are not [...] health care providers to discuss results at [phone] ([phone]). Test Details: Variant analyzed: c.*97G>A, previously referred to as C92081W Methods/Limitations: DNA analysis of the F2 gene [...] developed and its performance characteristics determined by [email or web address]. It has not been cleared or approved by the Food and Drug Administration. References: Dylan S, Zeny MATHEW, Jer R, Gerson WW, Miles JH; [employer] Professional Practice and Guidelines Committee. Addendum: [employer] consensus statement on factor V Leiden mutation testing. Ilana Med. 2020May 06. doi: 10.1038/[id number]-y. PMID: 44268552. Benedicto PEREZ. Prothrombin Thrombophilia. 2005Sep 25 [Updated 2020Apr 07]. In: Steve MP, Bobbi HH, Jared RA, et al., editors. Thien(R) [Internet]. [place] ([place]): [facility], [place]; 7040-1403. Available from: https://www.ncbi.nlm.nih.gov/books/RUE3146/ Reece S, Zeny MATHEW, Rickey X, Aime B, Diana EB, Ana P, Jass CS; [employer] Laboratory Roof Bolter Operator Committee. Venous thromboembolism laboratory testing (factor V Leiden and factor II c.*97G>A), 2018 update: a technical standard of the [employer] and [employer] ([employer]). Ilana Med. 2018 Feb;20(12):5545-9438. doi: 10.1038/[id number]-v. Epub 2017Dec 06. PMID: 01639953. Performed By: #### L 4500.5000, L101.9900, L503.5510, L3100.1725, L3100.7250, L501.9520, L501.5200, L3100.5600, L3100.7050, L500.4100, L3100.5450, L3100.5800, L3100.5700, L3300.8000, L500.4050, L3100.7325, L3300.0450, L100.0500, L4500.2000, L3100.7300, L3100.8408, L4500.0100, L3300.8200, L503.0106 ####[facility] [address] [place], [place], [id number] Folates, RBCon 07-31-2024 Fol.,Hemolysate 536.0 ng/mL Normal Not Estab. [facility] Comment on above: Order Comment: Test( s) 843034-Drlknrajznjl Antigenwas developed and its performance characteristicsdetermined by [email or web address]. It has not been cleared or approvedby the Food and Drug Administration. Performed By: #### L 4500.5000, L101.9900, L503.5510, L3100.1725, L3100.7250, L501.9520, L501.5200, L3100.5600, L3100.7050, L500.4100, L3100.5450, L3100.5800, L3100.5700, L3300.8000, L500.4050, L3100.7325, L3300.0450, L100.0500, L4500.2000, L3100.7300, L3100.8408, L4500.0100, L3300.8200, L503.0106 ####[facility] [address] [place], [place], [id number] Folate, RBC 1087 ng/mL Normal >498 [facility] Comment on above: Order Comment: Test( s) 003034-Zqfwuienylgy Antigenwas developed and its performance characteristicsdetermined by [email or web address]. It has not been cleared or approvedby the Food and Drug Administration. Performed By: #### L 4500.5000, L101.9900, L503.5510, L3100.1725, L3100.7250, L501.9520, L501.5200, L3100.5600, L3100.7050, L500.4100, L3100.5450, L3100.5800, L3100.5700, L3300.8000, L500.4050, L3100.7325, L3300.0450, L100.0500, L4500.2000, L3100.7300, L3100.8408, L4500.0100, L3300.8200, L503.0106 ####[facility] [address] [facility] [place], [place], [address] Hematocrit (Bld) [Volume fraction] 49.3 % Normal 37.5-51.0 [facility] Comment on above: Order Comment: Test( s) 358937-Hnycivtllllu Antigenwas developed and its performance characteristicsdetermined by [email or web address]. It has not been cleared or approvedby the Food and Drug Administration. Performed By: #### L 4500.5000, L101.9900, L503.5510, L3100.1725, L3100.7250, L501.9520, L501.5200, L3100.5600, L3100.7050, L500.4100, L3100.5450, L3100.5800, L3100.5700, L3300.8000, L500.4050, L3100.7325, L3300.0450, L100.0500, L4500.2000, L3100.7300, L3100.8408, L4500.0100, L3300.8200, L503.0106 ####[facility] [address] [facility]. [place], [place], [id number] L3300.8200on 07-31-2024 VITAMIN B6 29.1 ug/L Normal 3.4-65.2 [facility] Comment on above: Order Comment: Test( s) 909816-Hasnocsdbpew Antigenwas developed and its performance characteristicsdetermined by [email or web address]. It has not been cleared or approvedby the Food and Drug Administration. Result Comment: Defi ciency: <3.4 Marginal: 3.4 - 5.1 Adequate: >5.1 Performed By: #### L 4500.5000, L101.9900, L503.5510, L3100.1725, L3100.7250, L501.9520, L501.5200, L3100.5600, L3100.7050, L500.4100, L3100.5450, L3100.5800, L3100.5700, L3300.8000, L500.4050, L3100.7325, L3300.0450, L100.0500, L4500.2000, L3100.7300, L3100.8408, L4500.0100, L3300.8200, L503.0106 ####[facility] [address] [facility]. [place], [place], [id number] Lupus Anticoagulant Compon 0 - aPTT Coag (Bld) [Time] 25.6 s Normal 0.0-43.5 [facility] Comment on above: Order Comment: Test( s) 336179-Cjxqhgzqjxfg Antigenwas developed and its performance characteristicsdetermined by [email or web address]. It has not been cleared or approvedby the Food and Drug Administration. Performed By: #### L 4500.5000, L101.9900, L503.5510, L3100.1725, L3100.7250, L501.9520, L501.5200, L3100.5600, L3100.7050, L500.4100, L3100.5450, L3100.5800, L3100.5700, L3300.8000, L500.4050, L3100.7325, L3300.0450, L100.0500, L4500.2000, L3100.7300, L3100.8408, L4500.0100, L3300.8200, L503.0106 ####[facility] [address] [place], [address] DILUTE PT (dPT) 36.9 sec Normal 0.0-47.6 [facility] Comment on above: Order Comment: Test( s) 134415-Kwaaoaprydkg Antigenwas developed and its performance characteristicsdetermined by [email or web address]. It has not been cleared or approvedby the Food and Drug Administration. Performed By: #### L 4500.5000, L101.9900, L503.5510, L3100.1725, L3100.7250, L501.9520, L501.5200, L3100.5600, L3100.7050, L500.4100, L3100.5450, L3100.5800, L3100.5700, L3300.8000, L500.4050, L3100.7325, L3300.0450, L100.0500, L4500.2000, L3100.7300, L3100.8408, L4500.0100, L3300.8200, L503.0106 ####[facility] [address] [facility] [place], [address] dPT Conf. Ratio 1.27 Ratio Normal 0.00-1.34 [facility] Comment on above: Order Comment: Test( s) 608815-Qybpchtwvmxy Antigenwas developed and its performance characteristicsdetermined by [email or web address]. It has not been cleared or approvedby the Food and Drug Administration. Performed By: #### L 4500.5000, L101.9900, L503.5510, L3100.1725, L3100.7250, L501.9520, L501.5200, L3100.5600, L3100.7050, L500.4100, L3100.5450, L3100.5800, L3100.5700, L3300.8000, L500.4050, L3100.7325, L3300.0450, L100.0500, L4500.2000, L3100.7300, L3100.8408, L4500.0100, L3300.8200, L503.0106 ####[facility] [address] [facility] [place], [address] DRVVT 39.5 sec Normal 0.0-47.0 [facility] Comment on above: Order Comment: Test( s) 457374-Veckgizplnby Antigenwas developed and its performance characteristicsdetermined by [email or web address]. It has not been cleared or approvedby the Food and Drug Administration. Performed By: #### L 4500.5000, L101.9900, L503.5510, L3100.1725, L3100.7250, L501.9520, L501.5200, L3100.5600, L3100.7050, L500.4100, L3100.5450, L3100.5800, L3100.5700, L3300.8000, L500.4050, L3100.7325, L3300.0450, L100.0500, L4500.2000, L3100.7300, L3100.8408, L4500.0100, L3300.8200, L503.0106 ####[facility] [address] [place], [address] Interpretation Comment: Normal . [facility] Comment on above: Order Comment: Test( s) 364981-Qppvkgahtiub Antigenwas developed and its performance characteristicsdetermined by [email or web address]. It has not been cleared or approvedby the Food and Drug Administration. Result Comment: No l upus anticoagulant was detected. Performed By: #### L 4500.5000, L101.9900, L503.5510, L3100.1725, L3100.7250, L501.9520, L501.5200, L3100.5600, L3100.7050, L500.4100, L3100.5450, L3100.5800, L3100.5700, L3300.8000, L500.4050, L3100.7325, L3300.0450, L100.0500, L4500.2000, L3100.7300, L3100.8408, L4500.0100, L3300.8200, L503.0106 ####[facility] [address] [place], [address] THROMBIN TIME 22.6 sec Normal 0.0-23.0 [facility] Comment on above: Order Comment: Test( s) 983609-Rrkunnjabmsb Antigenwas developed and its performance characteristicsdetermined by [email or web address]. It has not been cleared or approvedby the Food and Drug Administration. Performed By: #### L 4500.5000, L101.9900, L503.5510, L3100.1725, L3100.7250, L501.9520, L501.5200, L3100.5600, L3100.7050, L500.4100, L3100.5450, L3100.5800, L3100.5700, L3300.8000, L500.4050, L3100.7325, L3300.0450, L100.0500, L4500.2000, L3100.7300, L3100.8408, L4500.0100, L3300.8200, L503.0106 ####[facility] [address] [place], [place], [address] Protein C Antigenon 08-01-19 PROTEIN C Ag 126 Normal 60-150 [facility] Comment on above: Order Comment: Test( s) 289858-Vcdwxunjsuun Antigenwas developed and its performance characteristicsdetermined by [email or web address]. It has not been cleared or approvedby the Food and Drug Administration. Performed By: #### L 4500.5000, L101.9900, L503.5510, L3100.1725, L3100.7250, L501.9520, L501.5200, L3100.5600, L3100.7050, L500.4100, L3100.5450, L3100.5800, L3100.5700, L3300.8000, L500.4050, L3100.7325, L3300.0450, L100.0500, L4500.2000, L3100.7300, L3100.8408, L4500.0100, L3300.8200, L503.0106 ####[facility] [address] [place], [place], [address] Protein C, Functionalon 07-04 PROTEIN C,FUNC 135 Normal 73-180 [facility] Comment on above: Order Comment: Test( s) 335563-Bpmsppgxionl Antigenwas developed and its performance characteristicsdetermined by [email or web address]. It has not been cleared or approvedby the Food and Drug Administration. Result Comment: Perf ormed at: [facility] [place] [id number] Roll Handler: Bandar De Anda MD, Phone: [phone] Performed at: [address] [id number] Roll Handler: Jorge Calderon PhD, Phone: [phone] Performed at: [facility] [address] [place], [place] [id number] Roll Handler: Arjun Flanagan [facility], Phone: [phone] Performed By: #### L 4500.5000, L101.9900, L503.5510, L3100.1725, L3100.7250, L501.9520, L501.5200, L3100.5600, L3100.7050, L500.4100, L3100.5450, L3100.5800, L3100.5700, L3300.8000, L500.4050, L3100.7325, L3300.0450, L100.0500, L4500.2000, L3100.7300, L3100.8408, L4500.0100, L3300.8200, L503.0106 ####[facility] [address] [place], [place], [address] Protein S Antigenon 08-01-19 25 PROTEIN S, FREE 120 Normal 61-136 [facility] Comment on above: Order Comment: Test( s) 923751-Bdqtqoiqfveh Antigenwas developed and its performance characteristicsdetermined by [facility]. It has not been cleared or approvedby the Food and Drug Administration. Performed By: #### L 4500.5000, L101.9900, L503.5510, L3100.1725, L3100.7250, L501.9520, L501.5200, L3100.5600, L3100.7050, L500.4100, L3100.5450, L3100.5800, L3100.5700, L3300.8000, L500.4050, L3100.7325, L3300.0450, L100.0500, L4500.2000, L3100.7300, L3100.8408, L4500.0100, L3300.8200, L503.0106 ####[facility] [address] [place], [place], [phone]) PROTEIN S,TOTAL 95 Normal 60-150 [facility] Comment on above: Order Comment: Test( s) 860099-Vrdindhsuixm Antigenwas developed and its performance characteristicsdetermined by [...] L100.0500, L4500.2000, L3100.7300, L3100.8408, L4500.0100, L3300.8200, L503.0106 ####[facility] [address] [place], [address] Protein S, Functionalon 05-3 0-2024 PROTEIN S, FUNC 97 Normal 63-140 [facility] Comment on above: Order Comment: Test( s) 001150-Hmujgyyxdaeu Antigenwas developed and its performance characteristicsdetermined by [...] L100.0500, L4500.2000, L3100.7300, L3100.8408, L4500.0100, L3300.8200, L503.0106 ####[facility] [address] [facility] [place], [place], [address] Vitamin B1, Thiamineon 07-31 VIT B1 THIAMINE 156.9 nmol/L Normal 66.5-200.0 [facility] Comment on above: Order Comment: Test( s) 521602-Axcetafnsgrl Antigenwas developed and its performance characteristicsdetermined by [facility]. It has not been cleared or approvedby the Food and Drug Administration. Performed By: #### L 4500.5000, L101.9900, L503.5510, L3100.1725, L3100.7250, L501.9520, L501.5200, L3100.5600, L3100.7050, L500.4100, L3100.5450, L3100.5800, L3100.5700, L3300.8000, L500.4050, L3100.7325, L3300.0450, L100.0500, L4500.2000, L3100.7300, L3100.8408, L4500.0100, L3300.8200, L503.0106 ####[facility] [address] [place], [place], [address] CASI w/ Reflex Mult Confirmon 07-28-2024 ANTI-DNA (DS)AB TNP Normal [facility] Comment on above: Performed By: #### L 4500.5000, L101.9900, L503.5510, L3100.1725, L3100.7250, L501.9520, L501.5200, L3100.5600, L3100.7050, L500.4100, L3100.5450, L3100.5800, L3100.5700, L3300.8000, L500.4050, L3100.7325, L3300.0450, L100.0500, L4500.2000, L3100.7300, L3100.8408, L4500.0100, L3300.8200, L503.0106 ####[facility] [address] [place], [place], [address] ANTI-SS-A TNP Normal [facility] Comment on above: Performed By: #### L 4500.5000, L101.9900, L503.5510, L3100.1725, L3100.7250, L501.9520, L501.5200, L3100.5600, L3100.7050, L500.4100, L3100.5450, L3100.5800, L3100.5700, L3300.8000, L500.4050, L3100.7325, L3300.0450, L100.0500, L4500.2000, L3100.7300, L3100.8408, L4500.0100, L3300.8200, L503.0106 ####[facility] [address] [place], [place], [address] ANTI-SS-B TNP Normal [facility] Comment on above: Performed By: #### L 4500.5000, L101.9900, L503.5510, L3100.1725, L3100.7250, L501.9520, L501.5200, L3100.5600, L3100.7050, L500.4100, L3100.5450, L3100.5800, L3100.5700, L3300.8000, L500.4050, L3100.7325, L3300.0450, L100.0500, L4500.2000, L3100.7300, L3100.8408, L4500.0100, L3300.8200, L503.0106 ####[facility] [address] [place], [place], [address] Ammoniaon 07-20-2024 Ammonia (P) [Moles/Vol] 55.6 umol/L Normal 16-60 [facility] Comment on above: Order Comment: CURT Myles ON ORIG. DRAW Performed By: #### L 4500.5000, L101.9900, L503.5510, L3100.1725, L3100.7250, L501.9520, L501.5200, L3100.5600, L3100.7050, L500.4100, L3100.5450, L3100.5800, L3100.5700, L3300.8000, L500.4050, L3100.7325, L3300.0450, L100.0500, L4500.2000, L3100.7300, L3100.8408, L4500.0100, L3300.8200, L503.0106 ####[facility] [address] [place], [address] Anion gap in Serum or Plasma Ordered By: Werner Mccarty on 07-20-2024 Anion gap [Moles/Vol] 11 mmol/L 5-15 [facility] BUN/creatinine ratioOrdered By: Werner Mccarty on 07-20-2024 Urea nitrogen/Creatinine [Mass ratio] 24.9 mg/mg High 10-20 [facility] Bilirubin, totalOrdered By: Werner Mccarty on 07-20-2024 Bilirubin [Mass/Vol] 0.30 mg/dL 0.00-1.30 [facility] Blood or tissue coagulation factor II targeted mutation analysis by molecular geneticOrdered By: Werner Mccarty on 07-20-2024 F2 gene targeted mutation analysis [employer] Nom (Bld/Tiss) Comment . [facility] Comment on above: Result: c.*97G>A - [...] in theF2 gene and a c.1601G>A (p. Gwo390Izw) variant in the F5 gene(commonly referred to as Factor V Leiden) have an approximately 20-fold increased risk for venous thromboembolism. Risks are likely santo even higher in more complex genotype combinations involving theF2 c.*97G>A variant and Factor V Leiden (PMID: 24543517). Additionalrisk factors include but are not limited [...] for health care providers to discussresults at [phone] ([phone]).Test Details:Variant analyzed: c.*97G>A, previously referred to as [id number]/Limitations:DNA analysis of the F2 gene (NM_000506.5) was [...] was developed and its performance characteristics determinedby [facility]. It has not been cleared or approved by the Food and DrugAdministration.References:Dylan S, Zeny AK, Jer R, Gerson WW, Miles MORTENSEN; [employer] ProfessionalPractice and Guidelines Committee. Addendum: [employer] consensus statement on factor V Leiden mutationtesting. [employer] Med. 2020May 06. doi: 10.1038/[id number]-m.PMID: 49936490.Benedicto PEREZ. Prothrombin Thrombophilia. 2005Sep 25[Updated 2020Apr 07]. In: Steve MP, Bobbi HH, Jared RA, et al.,editors. Thien(R) [Internet]. [place] ([place]): [facility]; 2724-7415. Available from:https://www.ncbi.nlm.nih.gov/books/HKP3851/Reece S, Zeny AK, Rickey X, Aime B, Diana EB, Ana P, Jass CS;[employer] [facility] [employer]of [employer] Operator Committee. Venous thromboembolismlaboratory testing (factor V Leiden and factor II c.*97G>A),2018 update: a technical standard of the [employer] ([employer]). Ilana Med. 2018 Feb;20(12):2038-5074.doi: 10.1038/[id number]-h. Epub 2017Dec 06. PMID: 19224279. CBC-Complete Blood Cnt No Di ffon 07-20-2024 Erythrocyte distribution width (RBC) [Ratio] 12.2 % Normal 11.6-14.6 [facility] Comment on above: Performed By: #### L 4500.5000, L101.9900, L503.5510, L3100.1725, L3100.7250, L501.9520, L501.5200, L3100.5600, L3100.7050, L500.4100, L3100.5450, L3100.5800, L3100.5700, L3300.8000, L500.4050, L3100.7325, L3300.0450, L100.0500, L4500.2000, L3100.7300, L3100.8408, L4500.0100, L3300.8200, L503.0106 ####[facility] [address] [place], [address] Hematocrit (Bld) [Volume fraction] 46.5 % Normal 40-54 [facility] Comment on above: Performed By: #### L 4500.5000, L101.9900, L503.5510, L3100.1725, L3100.7250, L501.9520, L501.5200, L3100.5600, L3100.7050, L500.4100, L3100.5450, L3100.5800, L3100.5700, L3300.8000, L500.4050, L3100.7325, L3300.0450, L100.0500, L4500.2000, L3100.7300, L3100.8408, L4500.0100, L3300.8200, L503.0106 ####[facility] [address] [place], [address] Hemoglobin (Bld) [Mass/Vol] 14.7 g/dL Normal 13.0-16.5 [facility] Comment on above: Performed By: #### L 4500.5000, L101.9900, L503.5510, L3100.1725, L3100.7250, L501.9520, L501.5200, L3100.5600, L3100.7050, L500.4100, L3100.5450, L3100.5800, L3100.5700, L3300.8000, L500.4050, L3100.7325, L3300.0450, L100.0500, L4500.2000, L3100.7300, L3100.8408, L4500.0100, L3300.8200, L503.0106 ####[facility] [address] [place], [address] MCH (RBC) [Entitic mass] 27.5 pg Normal 27.0-32.0 [facility] Comment on above: Performed By: #### L 4500.5000, L101.9900, L503.5510, L3100.1725, L3100.7250, L501.9520, L501.5200, L3100.5600, L3100.7050, L500.4100, L3100.5450, L3100.5800, L3100.5700, L3300.8000, L500.4050, L3100.7325, L3300.0450, L100.0500, L4500.2000, L3100.7300, L3100.8408, L4500.0100, L3300.8200, L503.0106 ####[facility] [address] [facility] [place], [place], [id number] MCHC (RBC) [Mass/Vol] 31.6 g/dL Low 32-36 [facility] Comment on above: Performed By: #### L 4500.5000, L101.9900, L503.5510, L3100.1725, L3100.7250, L501.9520, L501.5200, L3100.5600, L3100.7050, L500.4100, L3100.5450, L3100.5800, L3100.5700, L3300.8000, L500.4050, L3100.7325, L3300.0450, L100.0500, L4500.2000, L3100.7300, L3100.8408, L4500.0100, L3300.8200, L503.0106 ####[facility] [address] [place], [place], [phone] MCV (RBC) [Entitic vol] 87.1 fL Normal 80-94 [facility] Comment on above: Performed By: #### L 4500.5000, L101.9900, L503.5510, L3100.1725, L3100.7250, L501.9520, L501.5200, L3100.5600, L3100.7050, L500.4100, L3100.5450, L3100.5800, L3100.5700, L3300.8000, L500.4050, L3100.7325, L3300.0450, L100.0500, L4500.2000, L3100.7300, L3100.8408, L4500.0100, L3300.8200, L503.0106 ####[facility] [address] [place], [address] Platelet mean volume (Bld) [Entitic vol] 13.8 fL High 6.2-12.0 [facility] Comment on above: Performed By: #### L 4500.5000, L101.9900, L503.5510, L3100.1725, L3100.7250, L501.9520, L501.5200, L3100.5600, L3100.7050, L500.4100, L3100.5450, L3100.5800, L3100.5700, L3300.8000, L500.4050, L3100.7325, L3300.0450, L100.0500, L4500.2000, L3100.7300, L3100.8408, L4500.0100, L3300.8200, L503.0106 ####[facility] [address] [place], [address] Platelets (Bld) [#/Vol] 158 10*3/uL Normal 150-450 [facility] Comment on above: Performed By: #### L 4500.5000, L101.9900, L503.5510, L3100.1725, L3100.7250, L501.9520, L501.5200, L3100.5600, L3100.7050, L500.4100, L3100.5450, L3100.5800, L3100.5700, L3300.8000, L500.4050, L3100.7325, L3300.0450, L100.0500, L4500.2000, L3100.7300, L3100.8408, L4500.0100, L3300.8200, L503.0106 ####[facility] [address] [place], [address] RBC (Bld) [#/Vol] 5.34 10*6/uL Normal 4.6-6.2 [facility] Comment on above: Performed By: #### L 4500.5000, L101.9900, L503.5510, L3100.1725, L3100.7250, L501.9520, L501.5200, L3100.5600, L3100.7050, L500.4100, L3100.5450, L3100.5800, L3100.5700, L3300.8000, L500.4050, L3100.7325, L3300.0450, L100.0500, L4500.2000, L3100.7300, L3100.8408, L4500.0100, L3300.8200, L503.0106 ####[facility] [address] [place], [address] RDW SD 38.5 fl Normal 35.1-43.9 [facility] Comment on above: Performed By: #### L 4500.5000, L101.9900, L503.5510, L3100.1725, L3100.7250, L501.9520, L501.5200, L3100.5600, L3100.7050, L500.4100, L3100.5450, L3100.5800, L3100.5700, L3300.8000, L500.4050, L3100.7325, L3300.0450, L100.0500, L4500.2000, L3100.7300, L3100.8408, L4500.0100, L3300.8200, L503.0106 ####[facility] [address] [place], [place], [phone] WBC (Bld) [#/Vol] 5.2 10*3/uL Normal 4.4-11.0 [facility] Comment on above: Performed By: #### L 4500.5000, L101.9900, L503.5510, L3100.1725, L3100.7250, L501.9520, L501.5200, L3100.5600, L3100.7050, L500.4100, L3100.5450, L3100.5800, L3100.5700, L3300.8000, L500.4050, L3100.7325, L3300.0450, L100.0500, L4500.2000, L3100.7300, L3100.8408, L4500.0100, L3300.8200, L503.0106 ####[facility] [address] [place], [address] Calculated very low density lipoprotein (VLDL) cholesterol measurementOrdered By: Werner Mccarty on 07-20-2024 Calculated very low density lipoprotein (VLDL) cholesterol measurement 37 mg/dL 5-40 [facility] Carbon dioxide, total [Moles /volume] in Central venous bloodOrdered By: Werner Mccarty on 07-20-2024 CO2 [Moles/Vol] 26.7 mmol/L 21.0-32.0 [facility] Chloride assayOrdered By: Ra zain Mccarty on 07-20-2024 Chloride [Moles/Vol] 101 mmol/L 98-108 [facility] Comprehensive Metabolic Prof ilon 07-20-2024 Albumin [Mass/Vol] 4.6 g/dL Normal 3.4-4.8 [facility] Comment on above: Performed By: #### L 4500.5000, L101.9900, L503.5510, L3100.1725, L3100.7250, L501.9520, L501.5200, L3100.5600, L3100.7050, L500.4100, L3100.5450, L3100.5800, L3100.5700, L3300.8000, L500.4050, L3100.7325, L3300.0450, L100.0500, L4500.2000, L3100.7300, L3100.8408, L4500.0100, L3300.8200, L503.0106 ####[facility] [address] [place], [address] Albumin/Globulin [Mass ratio] 1.5 {ratio} Normal 0.9-2.4 [facility] Comment on above: Performed By: #### L 4500.5000, L101.9900, L503.5510, L3100.1725, L3100.7250, L501.9520, L501.5200, L3100.5600, L3100.7050, L500.4100, L3100.5450, L3100.5800, L3100.5700, L3300.8000, L500.4050, L3100.7325, L3300.0450, L100.0500, L4500.2000, L3100.7300, L3100.8408, L4500.0100, L3300.8200, L503.0106 ####[facility] [address] [place], [place], [id number] ALK PHOS 178 U/L High 40-129 [facility] Comment on above: Performed By: #### L 4500.5000, L101.9900, L503.5510, L3100.1725, L3100.7250, L501.9520, L501.5200, L3100.5600, L3100.7050, L500.4100, L3100.5450, L3100.5800, L3100.5700, L3300.8000, L500.4050, L3100.7325, L3300.0450, L100.0500, L4500.2000, L3100.7300, L3100.8408, L4500.0100, L3300.8200, L503.0106 ####[facility] [address] [place], [place], [id number] ALT [Catalytic activity/Vol] 27 U/L Normal <=46 [facility] Comment on above: Performed By: #### L 4500.5000, L101.9900, L503.5510, L3100.1725, L3100.7250, L501.9520, L501.5200, L3100.5600, L3100.7050, L500.4100, L3100.5450, L3100.5800, L3100.5700, L3300.8000, L500.4050, L3100.7325, L3300.0450, L100.0500, L4500.2000, L3100.7300, L3100.8408, L4500.0100, L3300.8200, L503.0106 ####[facility] [address] [place], [place], [id number] AST [Catalytic activity/Vol] 18 U/L Normal <=37 [facility] Comment on above: Performed By: #### L 4500.5000, L101.9900, L503.5510, L3100.1725, L3100.7250, L501.9520, L501.5200, L3100.5600, L3100.7050, L500.4100, L3100.5450, L3100.5800, L3100.5700, L3300.8000, L500.4050, L3100.7325, L3300.0450, L100.0500, L4500.2000, L3100.7300, L3100.8408, L4500.0100, L3300.8200, L503.0106 ####[facility] [address] [place], [place], [id number] Bilirubin [Mass/Vol] 0.30 mg/dL Normal 0.00-1.30 [facility] Comment on above: Performed By: #### L 4500.5000, L101.9900, L503.5510, L3100.1725, L3100.7250, L501.9520, L501.5200, L3100.5600, L3100.7050, L500.4100, L3100.5450, L3100.5800, L3100.5700, L3300.8000, L500.4050, L3100.7325, L3300.0450, L100.0500, L4500.2000, L3100.7300, L3100.8408, L4500.0100, L3300.8200, L503.0106 ####[facility] [address] [place], [address] BUN/CRE 24.9 RATIO High 10-20 [facility] Comment on above: Performed By: #### L 4500.5000, L101.9900, L503.5510, L3100.1725, L3100.7250, L501.9520, L501.5200, L3100.5600, L3100.7050, L500.4100, L3100.5450, L3100.5800, L3100.5700, L3300.8000, L500.4050, L3100.7325, L3300.0450, L100.0500, L4500.2000, L3100.7300, L3100.8408, L4500.0100, L3300.8200, L503.0106 ####[facility] [address] [place], [place], [id number] Calcium [Mass/Vol] 10.2 mg/dL Normal 7.6-11.0 [facility] Comment on above: Performed By: #### L 4500.5000, L101.9900, L503.5510, L3100.1725, L3100.7250, L501.9520, L501.5200, L3100.5600, L3100.7050, L500.4100, L3100.5450, L3100.5800, L3100.5700, L3300.8000, L500.4050, L3100.7325, L3300.0450, L100.0500, L4500.2000, L3100.7300, L3100.8408, L4500.0100, L3300.8200, L503.0106 ####[facility] [address] [place], [place], [phone] Chloride [Moles/Vol] 101 mmol/L Normal 98-108 [facility] Comment on above: Performed By: #### L 4500.5000, L101.9900, L503.5510, L3100.1725, L3100.7250, L501.9520, L501.5200, L3100.5600, L3100.7050, L500.4100, L3100.5450, L3100.5800, L3100.5700, L3300.8000, L500.4050, L3100.7325, L3300.0450, L100.0500, L4500.2000, L3100.7300, L3100.8408, L4500.0100, L3300.8200, L503.0106 ####[facility] [address] [place], [place], [id number] CO2 [Moles/Vol] 26.7 mmol/L Normal 21.0-32.0 [facility] Comment on above: Performed By: #### L 4500.5000, L101.9900, L503.5510, L3100.1725, L3100.7250, L501.9520, L501.5200, L3100.5600, L3100.7050, L500.4100, L3100.5450, L3100.5800, L3100.5700, L3300.8000, L500.4050, L3100.7325, L3300.0450, L100.0500, L4500.2000, L3100.7300, L3100.8408, L4500.0100, L3300.8200, L503.0106 ####[facility] [address] [place], [address] Creatinine [Mass/Vol] 0.84 mg/dL Normal 0.70-1.20 [facility] Comment on above: Performed By: #### L 4500.5000, L101.9900, L503.5510, L3100.1725, L3100.7250, L501.9520, L501.5200, L3100.5600, L3100.7050, L500.4100, L3100.5450, L3100.5800, L3100.5700, L3300.8000, L500.4050, L3100.7325, L3300.0450, L100.0500, L4500.2000, L3100.7300, L3100.8408, L4500.0100, L3300.8200, L503.0106 ####[facility] [address] [place], [place], [id number] GAP 11 Normal 5-15 [facility] Comment on above: Performed By: #### L 4500.5000, L101.9900, L503.5510, L3100.1725, L3100.7250, L501.9520, L501.5200, L3100.5600, L3100.7050, L500.4100, L3100.5450, L3100.5800, L3100.5700, L3300.8000, L500.4050, L3100.7325, L3300.0450, L100.0500, L4500.2000, L3100.7300, L3100.8408, L4500.0100, L3300.8200, L503.0106 ####[facility] [address] [facility] [place], [address] GFR/1.73 sq M.predicted among non-blacks MDRD (S/P/Bld) [Vol rate/Area] 97 mL/min/{1.73_m2} Normal >60 [facility] Comment on above: Result Comment: mL/m in/1.73m2 CKD-EPI Creatinine Equation (2020) Performed By: #### L 4500.5000, L101.9900, L503.5510, L3100.1725, L3100.7250, L501.9520, L501.5200, L3100.5600, L3100.7050, L500.4100, L3100.5450, L3100.5800, L3100.5700, L3300.8000, L500.4050, L3100.7325, L3300.0450, L100.0500, L4500.2000, L3100.7300, L3100.8408, L4500.0100, L3300.8200, L503.0106 ####[facility] [address] [facility] [place], [place], [phone] Globulin (S) [Mass/Vol] 3.1 g/dL Normal 2.2-4.2 [facility] Comment on above: Performed By: #### L 4500.5000, L101.9900, L503.5510, L3100.1725, L3100.7250, L501.9520, L501.5200, L3100.5600, L3100.7050, L500.4100, L3100.5450, L3100.5800, L3100.5700, L3300.8000, L500.4050, L3100.7325, L3300.0450, L100.0500, L4500.2000, L3100.7300, L3100.8408, L4500.0100, L3300.8200, L503.0106 ####[facility] [address] [place], [place], [id number] Glucose [Mass/Vol] 182 mg/dL High 70-99 [facility] Comment on above: Performed By: #### L 4500.5000, L101.9900, L503.5510, L3100.1725, L3100.7250, L501.9520, L501.5200, L3100.5600, L3100.7050, L500.4100, L3100.5450, L3100.5800, L3100.5700, L3300.8000, L500.4050, L3100.7325, L3300.0450, L100.0500, L4500.2000, L3100.7300, L3100.8408, L4500.0100, L3300.8200, L503.0106 ####[facility] [address] [place], [place], [address] Potassium [Moles/Vol] 5.0 mmol/L Normal 3.3-5.1 [facility] Comment on above: Performed By: #### L 4500.5000, L101.9900, L503.5510, L3100.1725, L3100.7250, L501.9520, L501.5200, L3100.5600, L3100.7050, L500.4100, L3100.5450, L3100.5800, L3100.5700, L3300.8000, L500.4050, L3100.7325, L3300.0450, L100.0500, L4500.2000, L3100.7300, L3100.8408, L4500.0100, L3300.8200, L503.0106 ####[facility] [address] [facility] [place], [place], [id number] Sodium [Moles/Vol] 139 mmol/L Normal 133-145 [facility] Comment on above: Performed By: #### L 4500.5000, L101.9900, L503.5510, L3100.1725, L3100.7250, L501.9520, L501.5200, L3100.5600, L3100.7050, L500.4100, L3100.5450, L3100.5800, L3100.5700, L3300.8000, L500.4050, L3100.7325, L3300.0450, L100.0500, L4500.2000, L3100.7300, L3100.8408, L4500.0100, L3300.8200, L503.0106 ####[facility] [address] [facility] [place], [place], [phone] T PROT 7.7 g/dL Normal 5.9-8.4 [facility] Comment on above: Performed By: #### L 4500.5000, L101.9900, L503.5510, L3100.1725, L3100.7250, L501.9520, L501.5200, L3100.5600, L3100.7050, L500.4100, L3100.5450, L3100.5800, L3100.5700, L3300.8000, L500.4050, L3100.7325, L3300.0450, L100.0500, L4500.2000, L3100.7300, L3100.8408, L4500.0100, L3300.8200, L503.0106 ####[facility] [address] [facility] [place], [place], [phone] Urea nitrogen [Mass/Vol] 21 mg/dL High 4-19 [facility] Comment on above: Performed By: #### L 4500.5000, L101.9900, L503.5510, L3100.1725, L3100.7250, L501.9520, L501.5200, L3100.5600, L3100.7050, L500.4100, L3100.5450, L3100.5800, L3100.5700, L3300.8000, L500.4050, L3100.7325, L3300.0450, L100.0500, L4500.2000, L3100.7300, L3100.8408, L4500.0100, L3300.8200, L503.0106 ####[facility] [address] [place], [address] Dilute Rashad's viper venom timeOrdered By: Werner Mccarty on 07-20-2024 dRVVT Coag (PPP) [Time] 39.5 s 0.0-47.0 [facility] Erythrocyte Sed Rateon 07-20 SED RATE 16 mm/hr Normal 0-20 [facility] Comment on above: Performed By: #### L 4500.5000, L101.9900, L503.5510, L3100.1725, L3100.7250, L501.9520, L501.5200, L3100.5600, L3100.7050, L500.4100, L3100.5450, L3100.5800, L3100.5700, L3300.8000, L500.4050, L3100.7325, L3300.0450, L100.0500, L4500.2000, L3100.7300, L3100.8408, L4500.0100, L3300.8200, L503.0106 ####[facility] [address] [place], [address] Erythrocyte distribution wid th ratioOrdered By: Werner Mccarty on 07-20-2024 Erythrocyte distribution width (RBC) [Ratio] 12.2 % 11.6-14.6 [facility] Erythrocyte distribution wid th standard deviationOrdered By: Werner Mccarty on 07-20-2024 Erythrocyte distribution width (RBC) [Ratio] 38.5 fl 35.1-43.9 [facility] Erythrocyte folate measureme nt with hematocritOrdered By: Werner Mccarty on 07-20-2024 Hematocrit (Bld) [Volume fraction] 49.3 % 37.5-51.0 [facility] Erythrocyte sedimentation ra teOrdered By: Werner Mccarty on 07-20-2024 ESR (Bld) [Velocity] 16 mm/h 0-20 [facility] Functional protein C measure mentOrdered By: Werner Mccarty on 07-20-2024 Protein C actual/normal Chromogenic method (PPP) [Rel catalytic activity/Vol] 135 % 73-180 [facility] Comment on above: Performed at: [employer] [address] [id number] Director: Bandar De Anda MD, Phone: [phone] at: [employer] [address] [id number] Director: Jorge Calderon PhD, Phone: [phone] at: [facility] [id number] [place], [place] [id number] Director: Arjun Flanagan [facility], Phone: [phone] Glomerular filtration rate ( GFR) estimation/1.73 sq m using serum, plasma, or whole bOrdered By: Werner Mccarty on 07-20-2024 GFR/1.73 sq M.predicted among non-blacks MDRD (S/P/Bld) [Vol rate/Area] 97 mL/min/{1.73_m2} >60 [facility] Comment on above: mL/min/1.73m2 CKD-EP I Creatinine Equation (2020) Hematocrit Auto (Bld) [Volum e fraction]Ordered By: Werner Mccarty on 07-20-2024 Hematocrit (Bld) [Volume fraction] 46.5 % 40-54 [facility] Hemoglobin measurementOrdere d By: Werner Mccarty on 07-20-2024 Hemoglobin (Bld) [Mass/Vol] 14.7 g/dL 13.0-16.5 [facility] LDL calc ser/plasOrdered By: Werner Mccarty on 07-20-2024 Cholesterol in LDL [Mass/Vol] 70 mg/dL [facility] Comment on above: Vcczhwcobf=918-653 m g/dL & Higher Pozr=186 mg/dL or greater Laboratory - Chemistry and C hemistry - challengeOrdered By: Werner Mccarty on 07-20-2024 AST [Catalytic activity/Vol] 18 U/L <38 [facility] Lipid Profileon 07-20-2024 CHOL:HDL 4.04 Normal [facility] Comment on above: Performed By: #### L 4500.5000, L101.9900, L503.5510, L3100.1725, L3100.7250, L501.9520, L501.5200, L3100.5600, L3100.7050, L500.4100, L3100.5450, L3100.5800, L3100.5700, L3300.8000, L500.4050, L3100.7325, L3300.0450, L100.0500, L4500.2000, L3100.7300, L3100.8408, L4500.0100, L3300.8200, L503.0106 ####[facility] [address] [place], [address] Cholesterol [Mass/Vol] 143 mg/dL Normal <=200 [facility] Comment on above: Result Comment: Chol esterol level, Desirable <200 mg/dL Borderline high cholesterol 200-239 mg/dL High cholesterol >=240 mg/dL Recommendations of the NCEP Adult Treatment Panel for the following risk-cutoff thresholds for the [place] population. Performed By: #### L 4500.5000, L101.9900, L503.5510, L3100.1725, L3100.7250, L501.9520, L501.5200, L3100.5600, L3100.7050, L500.4100, L3100.5450, L3100.5800, L3100.5700, L3300.8000, L500.4050, L3100.7325, L3300.0450, L100.0500, L4500.2000, L3100.7300, L3100.8408, L4500.0100, L3300.8200, L503.0106 ####[facility] [address] [place], [address] Cholesterol in HDL [Mass/Vol] 35 mg/dL Low [facility] Comment on above: Result Comment: Megan [...] L100.0500, L4500.2000, L3100.7300, L3100.8408, L4500.0100, L3300.8200, L503.0106 ####[facility] [address] [facility] [place], [address] Cholesterol in LDL [Mass/Vol] 70 mg/dL Normal [facility] Comment on above: Result Comment: Bord njgxqf=596-626 mg/dL Higher Hrro=865 mg/dL or greater Performed By: #### L 4500.5000, L101.9900, L503.5510, L3100.1725, L3100.7250, L501.9520, L501.5200, L3100.5600, L3100.7050, L500.4100, L3100.5450, L3100.5800, L3100.5700, L3300.8000, L500.4050, L3100.7325, L3300.0450, L100.0500, L4500.2000, L3100.7300, L3100.8408, L4500.0100, L3300.8200, L503.0106 ####[facility] [address] [place], [place], [id number] Cholesterol in VLDL [Mass/Vol] 37 mg/dL Normal 5-40 [facility] Comment on above: Performed By: #### L 4500.5000, L101.9900, L503.5510, L3100.1725, L3100.7250, L501.9520, L501.5200, L3100.5600, L3100.7050, L500.4100, L3100.5450, L3100.5800, L3100.5700, L3300.8000, L500.4050, L3100.7325, L3300.0450, L100.0500, L4500.2000, L3100.7300, L3100.8408, L4500.0100, L3300.8200, L503.0106 ####[facility] [address] [place], [place], [id number] Triglyceride [Mass/Vol] 187 mg/dL Normal [facility] Comment on above: Result Comment: The drugs N-Acetylcysteine and Metamizole may falsely depress this assay. Normal range: <150 mg/dL Borderline High: 150-199 mg/dL High: 200-499 mg/dL Very High: >500 mg/dL Performed By: #### L 4500.5000, L101.9900, L503.5510, L3100.1725, L3100.7250, L501.9520, L501.5200, L3100.5600, L3100.7050, L500.4100, L3100.5450, L3100.5800, L3100.5700, L3300.8000, L500.4050, L3100.7325, L3300.0450, L100.0500, L4500.2000, L3100.7300, L3100.8408, L4500.0100, L3300.8200, L503.0106 ####[facility] [address] [place], [place], [id number] MCV (mean corpuscular volume ) determinationOrdered By: Wrener Mccarty on 07-20-2024 MCV (RBC) [Entitic vol] 87.1 fL 80-94 [facility] Magnesiumon 07-20-2024 Magnesium [Mass/Vol] 2.0 mg/dL Normal 1.5-2.2 [facility] Comment on above: Performed By: #### L 4500.5000, L101.9900, L503.5510, L3100.1725, L3100.7250, L501.9520, L501.5200, L3100.5600, L3100.7050, L500.4100, L3100.5450, L3100.5800, L3100.5700, L3300.8000, L500.4050, L3100.7325, L3300.0450, L100.0500, L4500.2000, L3100.7300, L3100.8408, L4500.0100, L3300.8200, L503.0106 ####[facility] [id number] [place], [place], [id number] Magnesium measurement (mass/ volume)Ordered By: Werner Mccarty on 07-20-2024 Magnesium (Unsp spec) [Mass/Vol] 2.0 mg/dL 1.5-2.2 [facility] Mean corpuscular hemoglobin (MCH) determinationOrdered By: Werner Mccarty on 07-20-2024 MCH (RBC) [Entitic mass] 27.5 pg 27.0-32.0 [facility] Mean corpuscular hemoglobin concentration (MCHC) determinationOrdered By: Werner Mccarty on 07-20-2024 MCHC (RBC) [Mass/Vol] 31.6 g/dL Low 32-36 [facility] Mean platelet volume determi nationOrdered By: Werner Mccarty on 07-20-2024 Platelet mean volume (Bld) [Entitic vol] 13.8 fL High 6.2-12.0 [facility] Platelet countOrdered By: Ra zain Mccarty on 07-20-2024 Platelets (Bld) [#/Vol] 158 10*3/uL 150-450 [facility] Platelet poor plasma antithr ombin actual/normal ratio by chromogenic method (relativeOrdered By: Werner Mccarty on 07-20-2024 Antithrombin actual/normal Chromogenic method (PPP) [Rel catalytic activity/Vol] 151 % High 75-135 [facility] Comment on above: An elevated antithro mbin activity is of no known clinicalsignificance. Direct Xa inhibitor anticoagulants such asrivaroxaban, apixaban and edoxaban will lead to spuriouslyelevated antithrombin activity levels possibly masking adeficiency. Platelet poor plasma antithr ombin antigen detection by immunoassayOrdered By: Werner Mccarty on 07-20-2024 Antithrombin Ag IA Ql (PPP) 124 % 72-124 [facility] Platelet poor plasma protein S actual/normal ratio (relative time)Ordered By: Werner Mccarty on 07-20-2024 Protein S actual/normal Coag (PPP) [Relative time] 97 % 63-140 [facility] Comment on above: Protein S activity m ay be falsely increased (masking anabnormal, low result) in patients receiving direct Xainhibitor (e.g., rivaroxaban, apixaban, edoxaban) or adirect thrombin inhibitor (e.g., dabigatran) anticoagulanttreatment due to assay interference by these drugs. Potassium measurement (mass/ volume)Ordered By: Werner Mccarty on 07-20-2024 Potassium (Unsp spec) [Mass/Vol] 5.0 mmol/L 3.3-5.1 [facility] Protein C antigen assayOrder ed By: Werner Mccarty on 07-20-2024 Protein C Ag actual/normal IA (PPP) [Relative mass conc] 126 % 60-150 [facility] Protein S measurement in sami telet poor plasma by coagulation assay (units/volume)Ordered By: Werner Mccarty on 07-20-2024 Protein S Coag Qn (PPP) 95 % 60-150 [facility] Comment on above: This test was develo ped and its performance characteristicsdetermined by [facility]. It has not been cleared orapproved by the Food and Drug Administration. Protein S, freeOrdered By: Aziza Mccarty on 07-20-2024 Protein S Free Ag IA Qn (PPP) 120 % 61-136 [facility] RBC Auto (Bld) [#/Vol]Ordere d By: Werner Mccarty on 07-20-2024 RBC (Bld) [#/Vol] 5.34 10*6/uL 4.6-6.2 [facility] Screening total cholesterol/ high density lipoprotein (HDL) cholesterol ratioOrdered By: Werner Mccarty on 07-20-2024 Cholesterol.total/Heidy sterol in HDL [Mass ratio] 4.04 {ratio} [facility] Serum DNA double strand anti body assay (units/volume)Ordered By: Werner Mccarty on 07-20-2024 DNA double strand Ab Qn (S) [facility] Comment on above: Test not performed Serum Scl-70 antibody assay (units/volume)Ordered By: Werner Mccarty on 07-20-2024 SCL-70 extractable nuclear Ab Qn (S) [facility] Comment on above: Test not performed Serum cardiolipin IgG antibo dy assay by immunoassay (units/volume)Ordered By: Werner Mccarty on 07-20-2024 Cardiolipin IgG IA Qn (S) < 9 GPL U/mL 0-14 [facility] Comment on above: Negative: <15 Indete rminate: 15 - 20 Low-Med Positive: >20 - 80 High Positive: >80 Serum creatinine measurement (mass/volume)Ordered By: Werner Mccarty on 07-20-2024 Creatinine [Mass/Vol] 0.84 mg/dL 0.70-1.20 [facility] Serum globulin measurementOr dered By: Werner Mccarty on 07-20-2024 Globulin (S) [Mass/Vol] 3.1 g/dL 2.2-4.2 [facility] Serum glucose measurement (m ass/volume)Ordered By: Werner Mccarty on 07-20-2024 Glucose [Mass/Vol] 182 mg/dL High 70-99 [facility] Serum or plasma alanine montoya otransferase (ALT) measurementOrdered By: Werner Mccarty on 07-20-2024 ALT [Catalytic activity/Vol] 27 U/L <47 [facility] Serum or plasma albumin ruslan urement (mass/volume)Ordered By: Werner Mccarty on 07-20-2024 Albumin [Mass/Vol] 4.6 g/dL 3.4-4.8 [facility] Serum or plasma albumin/glob ulin mass ratioOrdered By: Werner Mccarty on 07-20-2024 Albumin/Globulin [Mass ratio] 1.5 {ratio} 0.9-2.4 [facility] Serum or plasma alkaline jignesh sphatase measurementOrdered By: Werner Mccarty on 07-20-2024 ALP [Catalytic activity/Vol] 178 U/L High 40-129 [facility] Serum or plasma calcium ruslan urement (mass/volume)Ordered By: Werner Mccarty on 07-20-2024 Calcium [Mass/Vol] 10.2 mg/dL 7.6-11.0 [facility] Serum or plasma cardiolipin IgA antibody assay (units/volume)Ordered By: Werner Mccarty on 07-20-2024 Cardiolipin IgA Qn < 9 APL U/mL 0-11 [facility] Comment on above: Negative: <12 Indete rminate: 12 - 20 Low-Med Positive: >20 - 80 High Positive: >80 Serum or plasma cholesterol in HDL measurement (mass/volume)Ordered By: Werner Mccarty on 07-20-2024 Cholesterol in HDL [Mass/Vol] 35 mg/dL Low >40 [facility] Comment on above: National Cholesterol Education Program (NCEP) guidelines:<40 mg/dL: Low HDL-cholesterol (major risk factor for CHD)>= 60 mg/dL: High HDL-cholesterol (negative risk factor for CHD)HDL-cholesterol is affected by a number of factors, e.g. smoking, exercise, hormones, sex and age. Serum or plasma cholesterol measurement (mass/volume)Ordered By: Werner Mccarty on 07-20-2024 Cholesterol [Mass/Vol] 143 mg/dL <201 [facility] Comment on above: Cholesterol level, D esirable <200 mg/dLBorderline high cholesterol 200-239 mg/dLHigh cholesterol >=240 mg/dLRecommendations of the NCEP Adult Treatment Panel for the following risk-cutoff thresholds for the [place] population. Serum or plasma complement C 4 measurement (mass/volume)Ordered By: Werner Mccarty on 07-20-2024 Complement C4 [Mass/Vol] 29 mg/dL 12-38 [facility] Serum or plasma thiamine allan surement (mass/volume)Ordered By: Werner Mccarty on 07-20-2024 Thiamine [Mass/Vol] 156.9 nmol/L 66.5-200.0 [facility] Serum or plasma urea nitroge n measurement (mass/volume)Ordered By: Werner Mccarty on 07-20-2024 Urea nitrogen [Mass/Vol] 21 mg/dL High 4- [facility] Sodium levelOrdered By: Gloria Mccarty on 07-20-2024 Sodium [Moles/Vol] 139 mmol/L 133-145 [facility] TSH DL <= 0.005 mIU/L QnOrde red By: Werner Mccarty on 07-20-2024 TSH Qn 1.510 uIU/mL 0.300-4.20 0 [facility] Thrombin timeOrdered By: Vargas Mccarty on 07-20-2024 Thrombin time Coag (PPP) [Time] 22.6 sec 0.0-23.0 [facility] Thyroid Stim Hormone (TSH)on 07-20-2024 TSH 1.510 uIU/mL Normal 0.300-4.20 0 [facility] Comment on above: Performed By: #### L 4500.5000, L101.9900, L503.5510, L3100.1725, L3100.7250, L501.9520, L501.5200, L3100.5600, L3100.7050, L500.4100, L3100.5450, L3100.5800, L3100.5700, L3300.8000, L500.4050, L3100.7325, L3300.0450, L100.0500, L4500.2000, L3100.7300, L3100.8408, L4500.0100, L3300.8200, L503.0106 ####[facility] [address] [place], [place], [id number] Total proteinOrdered By: Vargas Mccarty on 07-20-2024 Protein [Mass/Vol] 7.7 g/dL 5.9-8.4 [facility] Triglycerides measurementOrd ered By: Werner Mccarty on 07-20-2024 Triglyceride [Mass/Vol] 187 mg/dL <199 [facility] Comment on above: The drugs N-Acetylcy steine and Metamizole may falsely depress this assay. Normal range: <150 mg/dLBorderline High: 150-199 mg/dLHigh: 200-499 mg/dLVery High: >500 mg/dL Venous blood ammonia measure mentOrdered By: Werner Mccarty on 07-20-2024 Ammonia (P) [Moles/Vol] 55.6 umol/L 16-60 [facility] Vitamin B12on 07-20-2024 Cobalamin (Vitamin B12) [Mass/Vol] 2229 pg/mL High 180-914 [facility] Comment on above: Performed By: #### L 4500.5000, L101.9900, L503.5510, L3100.1725, L3100.7250, L501.9520, L501.5200, L3100.5600, L3100.7050, L500.4100, L3100.5450, L3100.5800, L3100.5700, L3300.8000, L500.4050, L3100.7325, L3300.0450, L100.0500, L4500.2000, L3100.7300, L3100.8408, L4500.0100, L3300.8200, L503.0106 ####[facility] [address] [place], [address] Vitamin B12 ser/plasOrdered By: Werner Mccarty on 07-20-2024 Cobalamin (Vitamin B12) [Mass/Vol] 2229 pg/mL High 180-934 [facility] White blood cell (WBC) count Ordered By: Werner Mccarty on 07-20-2024 WBC (Bld) [#/Vol] 5.2 10*3/uL 4.4-11.0 [facility] Neurology Visit Reporton Neurology Visit Report [facility] [address] [place] [address], [address] [place] [address] OFFICE VISIT Date of Service: 07/09/24 MR#: [id number] Acct: [id number] Name: DREA COPELAND Rep #: [id number] : 1960 Provider: Dr. Werner quick MD Age/Sex: 64/M Location: [facility] Status: Signed HPI HPI Chief Complaint: Establish Care Details: History: The patient is a 64-year-old right-handed male with a past medical history of hypertension, diabetes mellitus, hyperlipidemia, anemia, vitamin D deficiency, gastroesophageal reflux disease, prior alcohol abuse, and stroke who presents for evaluation of his stroke. He resides in a detention facility and is accompanied by caregiver. The [...] with hemorrhage. He now resides in a detention facility. He has a feeding tube due [...] on 5 (more content not included)... Normal [facility] Bedside Glucoseon 11-20-2023 FINGERSTICK GLU 133 mg/dL High 74-106 [facility] Comment on above: Result Comment: GADIEL SPANN OF PATIENT CARE PER NURSING PROTOCOL Performed By: #### L 501.080 ####[facility] [address] [facility] [place], [address] EGD Reporton 11-20-[address] [facility] Medical Records Department [address] [place] [address] EGD Report MR#: [id number] Acct: [id number] Name: DREA COPELAND Rep #: [id number] : 1960 63 From: Ryan Larios DO PCP: Dr. Juan C Barnes MD Status:[facility] Patient Name: Drea Copeland Procedure Date: 11/20/2023 [...] pathology results. Procedure Code(s): --- Professional --- 76377, Esophagogastroduodenoscopy, flexible, transoral; with biopsy, single or multiple CPT copyright 2021 [employer]. All rights reserved. The codes documented in this report are preliminary and upon pre coder review may be revised to meet current compliance requirements. Ryan Larios DO 11/20/2023 10:27:40 AM This report has been signed electronically. Number of Addenda: 0 Note Initiated On: 11/20/2023 9:19 AM 11/20/23 1027 Date Ryan Friend DO Cosigner Signature: Date (if indicated) CC: Dr. Juan C Barnes MD; Ryan Larios DO Date Dictated: 11/20/23918 Date Transcribed: [employer] Liaison Officer: RF Signed [facility] MR/POSTOP.ANEon 11-20-2023 MR/POSTOP.[facility] Medical Records Department [address] [place] [address] Anesthesia Postop Eval I 11/20/23 1035 MR#: [id number] Acct: [id number] Name: DREA COPELAND Rep #: [id number] : 1960 63 From: Tylor Schmidt PCP: Dr. Juan C Barnes MD Status:REG [facility] Y Race: AA Location: [place] [address] Anesthesia: Postop Eval I Current Vital Signs [...] document: Postop Eval 1 completed: Yes 11/20/23 103 Date Tylor Lara Signature: Date CC: Signed [facility] MR/[id number] 11-20-2023 MR/POSTOPAN2 [facility] Medical Records Department [address] [place] [address] Anesthesia Postop Eval II 11/20/23 1308 MR#: [id number] Acct: [id number] Name: DREA COPELAND Rep #: [id number] : 1960 63 From: Reyes Menard MD PCP: Dr. Juan C Barnes MD Status:DEP [facility] Y Race: AA Location: EN Anesthesia Postop [...] No Vomiting: No 11/20/23 1308 Date Reyes Menard MD Cosigner Signature: Date CC: Signed Normal [facility] Surgery Specimen Level Bhavin 11-20-2023 Surgery Specimen Level IV Patient Age/Sex Location Account Attending Physician DREA COPELAND 63/M EN [id number] Ryan Larios DO Specimen: [id number] Received: 11/20/23124 Status: RIYA Luis Carlos Num: [id number] Spec Type: EGD BIOPSY Subm Dr: Ryan [...] specimen is totally submitted in one cassette. SJ. 11/20/2023 TC:3 CPT:10563 Patient Age/Sex Location Account Attending Physician DREA COPELAND 63/M EN [id number] Ryan Larios DO Signed (signature on file) Dr. Anil Epps DO 11/21/23 1418 Normal [facility] Comment on above: Performed By: #### P RIDGE #### [facility] [place], [address] Gastroenterology Visit Repor ton 10-21-2023 Gastroenterology Visit Report [facility] Gastroenterology [address] [place] [address] OFFICE VISIT Date of Service: 10/21/23 MR#: [id number] Acct: [id number] Name: DREA COPELAND Rep #: [id number] : 1960 Provider: ESTHELA Ty Age/Sex: 63/M Location: [facility] Status: Signed Intake Vital Signs 08/16/23 15:06 [...] bisacodyl 10 mg rectal suppository 10 mg RI DAILY PRN constipation 06/19/23 10/21/23 History esomeprazole [...] grams 08/17/23 10/21/23 Rx topical ointment (Calmoseptine) [facility] Medical History (Updated 10/21/23 @ 12:30 by [...] office today for HFU. *BGI established via [facility] hospitalization .05.25-05.10.23. Presented with SOB per pneumonia. GI consulted for emesis, aspiration pneumonia and dysphagia. EGD 05.07.2324 Grade D erosive esophagitis with bleeding. Increased PPI to BID. [facility] ER 05.15.23 presented with nausea and vomiting. OV 4.24- Pt here with transporter with the Avenue. [...] in the first portion of the duodenum. [facility] ED 08.10.23 - 08.18.23 GI bleed - [...] a heater probe. Clip was placed. 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 OV 10.21.23 Patient has been doing well. He denies abdominal pain, blood in his PEG and n/v. He continues to take Nexium 40 mg BID. He has no concerns today. ROS Const (more content not included)... Normal [facility] Thin prep Papanicolaou smear with manual screeningOrdered By: Ryan Larios on 06-24-2023 Thin prep Papanicolaou smear with manual screening 128 mg/dL 74-106 [facility] Comment on above: MANAGEMENT OF PATIEN T CARE PER NURSING PROTOCOL Basic metabolic 2000 panelon 05-28-2023 Anion gap [Moles/Vol] 5 mmol/L Normal 5-16 [facility] Comment on above: Order Comment: Speci men Type: BLOOD SPECIMEN Ordering Facility: [facility] Address: [address] [id number] Performed By: #### 2 4321-2, 5643-2, 4024-6, 7018-7 #### [facility] CLIA [id number] [address] [place] [address] [place] Calcium [Mass/Vol] 9.3 mg/dL Normal 8.5-10.5 [facility] Comment on above: Order Comment: Speci men Type: BLOOD SPECIMEN Ordering Facility: [facility] Address: [address] [id number] Performed By: #### 2 4321-2, 5643-2, 4024-6, 8608-7 #### [facility] CLIA [id number] [address] [place], [place] [address] [place] Chloride [Moles/Vol] 104 mmol/L Normal 98-107 [facility] Comment on above: Order Comment: Speci men Type: BLOOD SPECIMEN Ordering Facility: [facility] Address: [address] [place] [address] Performed By: #### 2 4321-2, 5643-2, 4024-6, 3298-7 #### [facility] CLIA [id number] [address] [place], [place] [address] [place] CO2 [Moles/Vol] 27 mmol/L Normal 21-32 [facility] Comment on above: Order Comment: Speci men Type: BLOOD SPECIMEN Ordering Facility: [facility] Address: [address] [place] [address] Performed By: #### 2 4321-2, 5643-2, 4024-6, 3298-7 #### [facility] CLIA [id number] [address] [place], [place] [address] [place] Creatinine [Mass/Vol] 0.71 mg/dL Normal 0.50-1.40 [facility] Comment on above: Order Comment: Speci men Type: BLOOD SPECIMEN Ordering Facility: [facility] Address: [address] [place] [address] Result Comment: Bianka ents receiving either N-Acetylcysteine (NAC) or Metamizole prior to venipuncture, may have falsely depressed results. Performed By: #### 2 4321-2, 5643-2, 4024-6, 3298-7 #### [facility] CLIA [id number] [address] [place] [address] OF [facility] Creatinine and Glomerular filtration rate.predicted panel (S/P/Bld) 103 mL/min/1.73m??? Normal >=60 [facility] Comment on above: Order Comment: Speci men Type: BLOOD SPECIMEN Ordering Facility: [facility] Address: [address] [place] [address] Result Comment: Rocio mated Glomerular Filtration Rate [...] #### 2 4321-2, 5643-2, 4024-6, 3298-7 #### [facility] CLIA [id number] [address] [place] [address] [place] Glucose [Mass/Vol] 166 mg/dL High 70-100 [facility] Comment on above: Order Comment: Fatmata magallanes Type: BLOOD SPECIMEN Ordering Facility: [facility] Address: [address] [place] [address] Result Comment: The [place] [employer] (ADA) provides guidance for cutoff [...] Standards of Medical Care in Diabetes 2016, [employer] [place] [employer]. Diabetes Care. 2016.39(Suppl 1). Results may be falsely elevated after the administration of Sulfapyridine. Results may be falsely depressed after the administration of Sulfasalazine. Performed By: #### 2 4321-2, 5643-2, 4024-6, 3298-7 #### [facility] CLIA [id number] [address] [place], [place] [address] [place] Potassium [Moles/Vol] 4.5 mmol/L Normal 3.5-5.1 [facility] Comment on above: Order Comment: Fatmata magallanes Type: BLOOD SPECIMEN Ordering Facility: [facility] Address: [address] [place] [address] Performed By: #### 2 4321-2, 5643-2, 4024-6, 3298-7 #### [facility] CLIA [id number] [address] [place], [place] [address] [place] Sodium [Moles/Vol] 136 mmol/L Normal 136-145 [facility] Comment on above: Order Comment: Speci men Type: BLOOD SPECIMEN Ordering Facility: [facility] Address: [address] [id number] Performed By: #### 2 4321-2, 5643-2, 4024-6, 3298-7 #### [facility] CLIA [id number] [address] [place], [place] [address] [place] Urea nitrogen [Mass/Vol] 17 mg/dL Normal 7-26 [facility] Comment on above: Order Comment: Speci men Type: BLOOD SPECIMEN Ordering Facility: [facility] Address: [address] [place], [place] [address] Performed By: #### 2 4321-2, 5643-2, 4024-6, 3298-7 #### [facility] CLIA [id number] [address] [place], [place] [address] [place] Basophil percentageOrdered B y: Juan C Barnes on 05-21-2023 Chloride [Moles/Vol] 113 mmol/L 98-107 [facility] Glucose [Mass/Vol] 214 mg/dL 74-106 [facility] Comment on above: Glucose result great er than or equal to 200 mg/dLsuggests DIABETES MELLITUS per A.D.A. criteria. Potassium [Moles/Vol] 4.1 mmol/L 3.5-5.1 [facility] Sodium [Moles/Vol] 153 mmol/L 136-145 [facility] - Chemistry and C hemistry - challengeOrdered By: Juan C Barnes on 05-21-2023 CO2 [Moles/Vol] 35.0 mmol/L 21.0-32.0 [facility] Urea nitrogen/Creatinine [Mass ratio] 45.1 mg/mg 10-20 [facility] No Panel InformationOrdered By: Juan C Barnes on 05-21-2023 Estimated GFR (MDRD) Amer 65 mL/min >60 [facility] Comment on above: GFR Calc Estimated GFR (MDRD) Non-Af Amer 54 mL/min >60 [facility] Comment on above: Non- GFR Calc Serum or plasma calcium ruslan urement (mass/volume)Ordered By: Juan C Barnes on 05-21-2023 Calcium [Mass/Vol] 9.8 mg/dL 8.5-10.1 [facility] Serum or plasma creatinine m easurement (mass/volume)Ordered By: Juan C Barnes on 05-21-2023 Creatinine [Mass/Vol] 1.42 mg/dL 0.70-1.30 [facility] Comment on above: The validity of the calculated GFR & GFRAA in patients over 70 years has not been determined. Clinical correlation is essential. Serum or plasma urea nitroge n measurement (mass/volume)Ordered By: Juan C Barnes on 05-21-2023 Urea nitrogen [Mass/Vol] 64 mg/dL 7-18 [facility] Thin prep Papanicolaou smear with manual screeningOrdered By: Juan C Barnes on 05-21-2023 Thin prep Papanicolaou smear with manual screening 5 5-15 [facility] Absolute lymphocyte countOrd ered By: Venancio Boswell on 05-15-2023 Lymphocytes Auto (Unsp spec) [#/Vol] 2.52 10*3/uL 0.83-4.51 [facility] Automated lymphocyte count a s percentage of total leukocytesOrdered By: Venancio Boswell on 05-15-2023 Lymphocytes/100 WBC Auto (Unsp spec) 14.0 % 19-41 [facility] Basophil percentageOrdered B y: Venancio Boswell on 05-15-2023 Basophil percentage 0 SEEN /hpf 0-5 [facility] Basophils/100 WBC (Bld) 0.3 % 0-1 [facility] Bilirubin [Mass/Vol] 0.30 mg/dL 0.20-1.00 [facility] Comment on above: For patients on eltr ombopag therapy, use of Dimension [place] TBIL is not recommended. Chloride [Moles/Vol] 98 mmol/L 98-107 [facility] Eosinophils/100 WBC (Bld) 0.6 % 0-5 [facility] Glucose [Mass/Vol] 436 mg/dL 74-106 [facility] Comment on above: Glucose result great er than or equal to 200 mg/dLsuggests DIABETES MELLITUS per A.D.A. criteria. Hemoglobin (Bld) [Mass/Vol] 9.4 g/dL 13.0-16.5 [facility] Monocytes/100 WBC (Bld) 3.8 % 0-10 [facility] Neutrophils (Bld) [#/Vol] 14.5 10*3/uL 2.0-7.7 [facility] Neutrophils/100 WBC (Bld) 80.9 % 47-70 [facility] Potassium [Moles/Vol] 4.4 mmol/L 3.5-5.1 [facility] Protein [Mass/Vol] 8.4 g/dL 6.4-8.2 [facility] Sodium [Moles/Vol] 138 mmol/L 136-145 [facility] WBC (Bld) [#/Vol] 18.0 10*3/uL 4.4-11.0 [facility] Bilirubin Test strip Ql (U)O rdered By: Venancio Boswell on 05-15-2023 Bilirubin Ql (U) Negative Negative [facility] Determination of erythrocyte mean corpuscular volume (MCV)Ordered By: Venancio Boswell on 05-15-2023 MCV (RBC) [Entitic vol] 84.9 fL 80-94 [facility] Erythrocyte distribution wid th ratioOrdered By: Venancio Boswell on 05-15-2023 Erythrocyte distribution width (RBC) [Ratio] 11.9 % 11.6-14.6 [facility] Erythrocyte distribution wid th standard deviationOrdered By: Venancio Boswell on 05-15-2023 Erythrocyte distribution width (RBC) [Entitic vol] 36.3 fL 35.1-43.9 [facility] Hematocrit Auto (Bld) [Volum e fraction]Ordered By: Venancio Boswell on 05-15-2023 Hematocrit (Bld) [Volume fraction] 30.4 % 40-54 [facility] Immature granulocytes/100 WB C Auto (Bld)Ordered By: Venancio Boswell on 05-15-2023 Immature granulocytes/100 WBC (Bld) 0.400 % 0.0-0.9 [facility] Comment on above: IG% - Immature Granu locytes (promyelocytes, myelocytes and metamyelocytes) > 1% indicates that a LEFT SHIFT is Present. Ketones Test strip Ql (U)Ord ered By: Venancio Boswell on 05-15-2023 Ketones Ql (U) Negative Negative [facility] - Chemistry and C hemistry - challengeOrdered By: Venancio Boswell on 05-15-2023 Albumin/Globulin [Mass ratio] 0.4 {ratio} 0.9-2.4 [facility] ALP [Catalytic activity/Vol] 208 U/L 45-117 [facility] ALT [Catalytic activity/Vol] 72 U/L 16-61 [facility] CO2 [Moles/Vol] 32.0 mmol/L 21.0-32.0 [facility] Globulin (S) [Mass/Vol] 5.9 g/dL 2.2-4.2 [facility] Lipase [Catalytic activity/Vol] 77 U/L 13-75 [facility] Comment on above: Please note:LIPASE r evised reference range effective 22. New Lipase methodology. Expected to produce lower values than the previous assay method. NEW Reference Range: 13 - 75 U/L Urea nitrogen/Creatinine [Mass ratio] 22.7 mg/mg 10-20 [facility] - Hematology and Cell countsOrdered By: Venancio Boswell on 05-15-2023 MCH (RBC) [Entitic mass] 26.3 pg 27.0-32.0 [facility] MCHC (RBC) [Mass/Vol] 30.9 g/dL 32-36 [facility] Nucleated RBC/100 WBC (Bld) [Ratio] 0 % 0-5 [facility] Platelet mean volume (Bld) [Entitic vol] 11.2 fL 6.2-12.0 [facility] Platelets (Bld) [#/Vol] 549 10*3/uL 150-450 [facility] Mucus LM Ql (Urine sed)Order ed By: Venancio Boswell on 05-15-2023 Mucus Ql (Urine sed) 0 SEEN /hpf [facility] Nitrite Test strip Ql (U)Ord ered By: Venancio Boswell on 05-15-2023 Nitrite Ql (U) Negative Negative [facility] No Panel InformationOrdered By: Venancio Boswell on 05-15-2023 Urine RBC 0 SEEN /hpf 0-5 [facility] Estimated Creatinine Clearance Calc 66.05 ml/min [facility] Estimated GFR (MDRD) Amer 79 mL/min >60 [facility] Comment on above: GFR Calc Estimated GFR (MDRD) Non-Af Amer 66 mL/min >60 [facility] Comment on above: Non- GFR Calc Protein Test strip Ql (U)Ord ered By: Venancio Boswell on 05-15-2023 Protein Ql (U) 100 mg/dl Negative [facility] RBC Auto (Bld) [#/Vol]Ordere d By: Venancio Boswell on 05-15-2023 RBC (Bld) [#/Vol] 3.58 10*6/uL 4.6-6.2 [facility] Serum or plasma calcium ruslan urement (mass/volume)Ordered By: Venancio Boswell on 05-15-2023 Calcium [Mass/Vol] 10.5 mg/dL 8.5-10.1 [facility] Serum or plasma creatinine m easurement (mass/volume)Ordered By: Venancio Boswell on 05-15-2023 Creatinine [Mass/Vol] 1.19 mg/dL 0.70-1.30 [facility] Comment on above: The validity of the calculated GFR & GFRAA in patients over 70 years has not been determined. Clinical correlation is essential. Serum or plasma urea nitroge n measurement (mass/volume)Ordered By: Venancio Boswell on 05-15-2023 Urea nitrogen [Mass/Vol] 27 mg/dL 7-18 [facility] Squamous epithelial cells de tection in urine sediment by light microscopyOrdered By: Venancio Boswell on 05-15-2023 Epithelial cells.squamous LM Ql (Urine sed) 0-5 SEEN /hpf 0-5 [facility] Thin prep Papanicolaou smear with manual screeningOrdered By: Venancio Boswell on 05-15-2023 Thin prep Papanicolaou smear with manual screening 2.5 g/dL 3.2-5.0 [facility] Thin prep Papanicolaou smear with manual screening 20 U/L 15-37 [facility] Thin prep Papanicolaou smear with manual screening 8 5-15 [facility] Urine blood detectionOrdered By: Venancio Boswell on 05-15-2023 RBC Ql (U) Negative Negative [facility] Urine clarityOrdered By: Payam Boswell on 05-15-2023 Clarity (U) Clear Clear [facility] Urine color determinationOrd ered By: Venancio Boswell on 05-15-2023 Color (U) Yellow Yellow [facility] Urine glucose detectionOrder ed By: Venancio Boswell on 05-15-2023 Glucose Ql (U) 1000 mg/dl Normal [facility] Urine leukocyte esterase det ection by dipstickOrdered By: Venancio Boswell on 05-15-2023 Leukocyte esterase Test strip Ql (U) 25 /ul Negative [facility] Urine pHOrdered By: Venancio gramajo on 05-15-2023 pH (U) 7.0 [pH] 5.0 - 8.0 [facility] Urine sediment bacteria coun t by microscopy (number/high power field)Ordered By: Venancio Boswell on 05-15-2023 Bacteria LM.HPF (Urine sed) [#/Area] 0 /[HPF] None Seen [facility] Urine specific gravity measu rementOrdered By: Venancio Boswell on 05-15-2023 Specific gravity (U) [Rel density] 1.010 1.002-1.03 0 [facility] Urine urobilinogen measureme ntOrdered By: Venancio Boswell on 05-15-2023 Urobilinogen Ql (U) Normal mg/dl Normal [facility] Basophil percentageOrdered B y: Roverto Zavala on 05-10-2023 Chloride [Moles/Vol] 103 mmol/L 98-107 [facility] Glucose [Mass/Vol] 246 mg/dL 74-106 [facility] Comment on above: Glucose result great er than or equal to 200 mg/dLsuggests DIABETES MELLITUS per A.D.A. criteria. Hemoglobin (Bld) [Mass/Vol] 14.0 g/dL 13.0-16.5 [facility] Potassium [Moles/Vol] 3.6 mmol/L 3.5-5.1 [facility] Sodium [Moles/Vol] 136 mmol/L 136-145 [facility] WBC (Bld) [#/Vol] 5.1 10*3/uL 4.4-11.0 [facility] [facility] Determination of erythrocyte mean corpuscular volume (MCV)Ordered By: Roverto Zavala on 05-10-2023 MCV (RBC) [Entitic vol] 85.2 fL 80-94 [facility] Erythrocyte distribution wid th ratioOrdered By: Roverto Zavala on 05-10-2023 Erythrocyte distribution width (RBC) [Ratio] 12.0 % 11.6-14.6 [facility] Erythrocyte distribution wid th standard deviationOrdered By: Roverto Zavala on 05-10-2023 Erythrocyte distribution width (RBC) [Entitic vol] 37.2 fL 35.1-43.9 [facility] Hematocrit Auto (Bld) [Volum e fraction]Ordered By: Roverto Zavala on 05-10-2023 Hematocrit (Bld) [Volume fraction] 43.9 % 40-54 [facility] Laboratory - Chemistry and C hemistry - challengeOrdered By: Roverto Zavala on 05-10-2023 CO2 [Moles/Vol] 24.0 mmol/L 21.0-32.0 [facility] Urea nitrogen/Creatinine [Mass ratio] 16.2 mg/mg 10-20 [facility] - Hematology and Cell countsOrdered By: Roverto Zavala on 05-10-2023 MCH (RBC) [Entitic mass] 27.2 pg 27.0-32.0 [facility] MCHC (RBC) [Mass/Vol] 31.9 g/dL 32-36 [facility] Platelet mean volume (Bld) [Entitic vol] 12.1 fL 6.2-12.0 [facility] Platelets (Bld) [#/Vol] 105 10*3/uL 150-450 [facility] No Panel InformationOrdered By: Roverto Zavala on 05-10-2023 Estimated Creatinine Clearance Calc 109.11 ml/min [facility] Estimated GFR (MDRD) Amer 137 mL/min >60 [facility] Comment on above: GFR Calc Estimated GFR (MDRD) Non-Af Amer 114 mL/min >60 [facility] Comment on above: Non- GFR Calc RBC Auto (Bld) [#/Vol]Ordere d By: Roverto Zavala on 05-10-2023 RBC (Bld) [#/Vol] 5.15 10*6/uL 4.6-6.2 [facility] Serum or plasma calcium ruslan urement (mass/volume)Ordered By: Roverto Zavala on 05-10-2023 Calcium [Mass/Vol] 8.5 mg/dL 8.5-10.1 [facility] Serum or plasma creatinine m easurement (mass/volume)Ordered By: Roverto Zavala on 05-10-2023 Creatinine [Mass/Vol] 0.74 mg/dL 0.70-1.30 [facility] Comment on above: The validity of the calculated GFR & GFRAA in patients over 70 years has not been determined. Clinical correlation is essential. Serum or plasma trough vanco mycin levelOrdered By: Roverto Zavala on 05-10-2023 Vancomycin trough [Mass/Vol] 13.1 ug/mL 5.0-15.0 [facility] Comment on above: VANCOMYCIN STANDARED DRUG THERAPY TROUGH LEVEL: 5.0 - 15.0 mg/L VANCOMYCIN HIGH INTENSITY THERAPY TROUGH LEVEL: 15.0 - 20.0 mg/L High Intensity therapy recommended for serious lifethreatening infections include:- Yogtgpnuqq-Iflqakftuntb-Zpxnwqvrs (Ventilator/Healtcare Associated)-Sepsis PLEASE CONTACT PHARMACY SERVICES (#[id number]) FOR INTERPRETATIONOF RESULTS. Serum or plasma urea nitroge n measurement (mass/volume)Ordered By: Roverto Zavala on 05-10-2023 Urea nitrogen [Mass/Vol] 12 mg/dL 7-18 [facility] Thin prep Papanicolaou smear with manual screeningOrdered By: Roverto Zavala on 05-10-2023 Thin prep Papanicolaou smear with manual screening 210 mg/dL 74-106 [facility] Comment on above: MANAGEMENT OF PATIEN T CARE PER NURSING PROTOCOL Thin prep Papanicolaou smear with manual screening 9 5-15 [facility] Whole blood hemoglobin A1c/t otal hemoglobin ratio (mass fraction)Ordered By: Roverto Zavala on 05-07-2023 HbA1c (Bld) [Mass fraction] 7.4 % 3.8-5.6 [facility] Comment on above: Normal < 5.7 % Predi abetic 5.7 - 6.4 % Diabetic >or= 6.5 % Please note range changes. Absolute lymphocyte countOrd ered By: Abril Barrera on 05-06-2023 Lymphocytes Auto (Unsp spec) [#/Vol] 2.50 10*3/uL 0.83-4.51 [facility] Automated lymphocyte count a s percentage of total leukocytesOrdered By: Abril Brarera on 05-06-2023 Lymphocytes/100 WBC Auto (Unsp spec) 22.3 % 19-41 [facility] Basophil percentageOrdered B y: Abril Barrera on 05-06-2023 Basophils/100 WBC (Bld) 0.4 % 0-1 [facility] Eosinophils/100 WBC (Bld) 0.2 % 0-5 [facility] Monocytes/100 WBC (Bld) 4.9 % 0-10 [facility] Neutrophils (Bld) [#/Vol] 8.1 10*3/uL 2.0-7.7 [facility] Neutrophils/100 WBC (Bld) 71.9 % 47-70 [facility] Basophil percentageOrdered B y: Jd Gonzalez on 05-06-2023 Lactate [Moles/Vol] 3.3 mmol/L 0.4-2.0 [facility] Comment on above: Critical Result(s) C alled at: 01:41:12 05/06/2023 by: Gregory Manrique. DANIELA GUILLERMO RN ICU. Results read back by same. Immature granulocytes/100 WB C Auto (Bld)Ordered By: Abril Barrera on 05-06-2023 Immature granulocytes/100 WBC (Bld) 0.300 % 0.0-0.9 [facility] Comment on above: IG% - Immature Granu locytes (promyelocytes, myelocytes and metamyelocytes) > 1% indicates that a LEFT SHIFT is Present. Laboratory - Hematology and Cell countsOrdered By: Abril Barrera on 05-06-2023 Nucleated RBC/100 WBC (Bld) [Ratio] 0 % 0-5 [facility] Absolute lymphocyte countOrd ered By: Lawrence Skaggs on 05-05-2023 Lymphocytes Auto (Unsp spec) [#/Vol] 1.98 10*3/uL 0.83-4.51 [facility] Activated partial thrombopla stin time (aPTT) in platelet poor plasma by coagulation aOrdered By: Lawrence Skaggs on 05-05-2023 aPTT Coag (PPP) [Time] 22.6 s 24.1-36.2 [facility] Amorphous sediment detection in urine sediment by light microscopyOrdered By: Lawrence Skaggs on 05-05-2023 Amorphous sediment LM Ql (Urine sed) 4+ [facility] Automated lymphocyte count a s percentage of total leukocytesOrdered By: Lawrence Skaggs on 05-05-2023 Lymphocytes/100 WBC Auto (Unsp spec) 13.0 % 19-41 [facility] Base excessOrdered By: Galileo Skaggs on 05-05-2023 Base excess Calc (BldV) [Moles/Vol] 9 mmol/L -1.0-3.5 [facility] Basophil percentageOrdered B y: Lawrence Skaggs on 05-05-2023 Basophil percentage 0-5 SEEN /hpf 0-5 [facility] Basophils/100 WBC (Bld) 0.5 % 0-1 [facility] Bilirubin [Mass/Vol] 0.40 mg/dL 0.20-1.00 [facility] Comment on above: For patients on eltr ombopag therapy, use of Dimension [place] TBIL is not recommended. Chloride [Moles/Vol] 106 mmol/L 98-107 [facility] Eosinophils/100 WBC (Bld) 0.1 % 0-5 [facility] Glucose [Mass/Vol] 370 mg/dL 74-106 [facility] Comment on above: Glucose result great er than or equal to 200 mg/dLsuggests DIABETES MELLITUS per A.D.A. criteria. Hemoglobin (Bld) [Mass/Vol] 12.9 g/dL 13.0-16.5 [facility] Lactate [Moles/Vol] 3.0 mmol/L 0.4-2.0 [facility] Comment on above: Critical Result(s) C alled at: 12:42:21 05/05/2023 by: Lo Lennon. Results read back by same. Monocytes/100 WBC (Bld) 8.2 % 0-10 [facility] Neutrophils (Bld) [#/Vol] 11.8 10*3/uL 2.0-7.7 [facility] Neutrophils/100 WBC (Bld) 77.9 % 47-70 [facility] Potassium [Moles/Vol] 4.7 mmol/L 3.5-5.1 [facility] Protein [Mass/Vol] 7.0 g/dL 6.4-8.2 [facility] Sodium [Moles/Vol] 143 mmol/L 136-145 [facility] WBC (Bld) [#/Vol] 15.2 10*3/uL 4.4-11.0 [facility] Bilirubin Test strip Ql (U)O rdered By: Lawrence Skaggs on 05-05-2023 Bilirubin Ql (U) Negative Negative [facility] CO2 (BldV) [Moles/Vol]Ordere d By: Lawrence Skaggs on 05-05-2023 CO2 [Moles/Vol] 35 mmol/L 23-33 [facility] Culture, urineOrdered By: irving Skaggs on 05-05-2023 Bacteria identified Cx Nom (U) Culture exhibits no growth. [facility] Bacteria identified Cx Nom (U) Culture exhibits no growth. [facility] Determination of erythrocyte mean corpuscular volume (MCV)Ordered By: Lawrence Skaggs on 05-05-2023 MCV (RBC) [Entitic vol] 87.8 fL 80-94 [facility] Erythrocyte distribution wid th ratioOrdered By: Lawrence Skaggs on 05-05-2023 Erythrocyte distribution width (RBC) [Ratio] 12.4 % 11.6-14.6 [facility] Erythrocyte distribution wid th standard deviationOrdered By: Lawrence Skaggs on 05-05-2023 Erythrocyte distribution width (RBC) [Entitic vol] 39.8 fL 35.1-43.9 [facility] Hematocrit Auto (Bld) [Volum e fraction]Ordered By: Lawrence Skaggs on 05-05-2023 Hematocrit (Bld) [Volume fraction] 41.6 % 40-54 [facility] Immature granulocytes/100 WB C Auto (Bld)Ordered By: Lawrence Skaggs on 05-05-2023 Immature granulocytes/100 WBC (Bld) 0.300 % 0.0-0.9 [facility] Comment on above: IG% - Immature Granu locytes (promyelocytes, myelocytes and metamyelocytes) > 1% indicates that a LEFT SHIFT is Present. Ketones Test strip Ql (U)Ord ered By: Lawrence Skaggs on 05-05-2023 Ketones Ql (U) 5 mg/dl Negative [facility] Laboratory - Chemistry and C hemistry - challengeOrdered By: Lawrence Skaggs on 05-05-2023 HCO3 (Bld) [Moles/Vol] 33 mmol/L 22-26 [facility] Albumin/Globulin [Mass ratio] 0.8 {ratio} 0.9-2.4 [facility] ALP [Catalytic activity/Vol] 96 U/L 45-117 [facility] ALT [Catalytic activity/Vol] 26 U/L 16-61 [facility] CO2 [Moles/Vol] 32.0 mmol/L 21.0-32.0 [facility] Globulin (S) [Mass/Vol] 4.0 g/dL 2.2-4.2 [facility] Urea nitrogen/Creatinine [Mass ratio] 45.3 mg/mg 10-20 [facility] Laboratory - CoagulationOrde red By: Lawrence Skaggs on 05-05-2023 INR Coag (Bld) [Relative time] 1.1 {INR} [facility] PT Coag (PPP) [Time] 14.2 s 11.7-14.9 [facility] Laboratory - Hematology and Cell countsOrdered By: Lawrence Skaggs on 05-05-2023 MCH (RBC) [Entitic mass] 27.2 pg 27.0-32.0 [facility] MCHC (RBC) [Mass/Vol] 31.0 g/dL 32-36 [facility] Nucleated RBC/100 WBC (Bld) [Ratio] 0 % 0-5 [facility] Platelet mean volume (Bld) [Entitic vol] 12.7 fL 6.2-12.0 [facility] Platelets (Bld) [#/Vol] 219 10*3/uL 150-450 [facility] - Microbiology an d Antimicrobial susceptibilityOrdered By: Lawrence Skaggs on 05-05-2023 SARS-CoV-2 (COVID-19) RNA YARA+probe Ql (Unsp spec) [facility] Bacteria identified Cx Nom (Bld) No growth in 5 days. [facility] SARS-CoV-2 (COVID-19) RNA YARA+probe Ql (Unsp spec) [facility] Bacteria identified Cx Nom (Bld) No growth in 5 days. [facility] Lower GI hemoglobin IA Ql (S tl)Ordered By: Lawrence Skaggs on 05-05-2023 Stool Occult Blood (JOANA) Positive [facility] Stool Occult Blood (JOANA) Positive [facility] Mucus LM Ql (Urine sed)Order ed By: Lawrence Skaggs on 05-05-2023 Mucus Ql (Urine sed) 0 SEEN /hpf [facility] Nitrite Test strip Ql (U)Ord ered By: Lawrence Skaggs on 05-05-2023 Nitrite Ql (U) Negative Negative [facility] No Panel InformationOrdered By: Abril Barrera on 05-05-2023 Methicillin-Resist S.aureus DNA PCR Negative Negative [facility] No Panel InformationOrdered By: Lawrence Skaggs on 05-05-2023 Urine RBC 10-25 SEEN /hpf 0-5 [facility] Ethyl Alcohol Level < 3.0 mg/dL [facility] Comment on above: The serum:whole bloo d ethanol ratio is approximately 1.14and varies slightly with hematocrit. Medical Alcohol reference interval and critical value innon-tolerant individuals; 50 - 100 Impairment 100 Intoxication 100 - 250 Severe Poisoning 250 - 400 Deep/possible fatal coma Blood Gas Oxygen Percent 15.0 [facility] Blood Gas Sample Site Not entered [facility] Blood Gas Specimen Type JER [facility] Oxygen Delivery Device HFNC [facility] Estimated Creatinine Clearance Calc 47.37 ml/min [facility] Estimated GFR (MDRD) Amer 53 mL/min >60 [facility] Comment on above: GFR Calc Estimated GFR (MDRD) Non-Af Amer 44 mL/min >60 [facility] Comment on above: Non- GFR Calc Troponin I High Sensitivity 7 pg/mL 3.0-78.0 [facility] Comment on above: Please Note: New [place] t Units and Gender Specific Reference Ranges. For more information see Policy Stat Procedure [place] High Sensitivity Troponin (TNIH) and attachments. PCO2 venousOrdered By: Galileo Skaggs on 05-05-2023 CO2 (BldV) [Partial pressure] 48.7 mm[Hg] 41-51 [facility] PO2 venousOrdered By: Lawrence Skaggs on 05-05-2023 Oxygen (BldV) [Partial pressure] 22 mm[Hg] 25-40 [facility] Protein Test strip Ql (U)Ord ered By: Lawrence Skaggs on 05-05-2023 Protein Ql (U) 100 mg/dl Negative [facility] RBC Auto (Bld) [#/Vol]Ordere d By: Lawrence Skaggs on 05-05-2023 RBC (Bld) [#/Vol] 4.74 10*6/uL 4.6-6.2 [facility] Serum or plasma acetone ruslan urement (mass/volume)Ordered By: Lawrence Skaggs on 05-05-2023 Acetone [Mass/Vol] Negative NEG [facility] Serum or plasma calcium ruslan urement (mass/volume)Ordered By: Lawrence Skaggs on 05-05-2023 Calcium [Mass/Vol] 10.1 mg/dL 8.5-10.1 [facility] Serum or plasma creatinine m easurement (mass/volume)Ordered By: Lawrence Skaggs on 05-05-2023 Creatinine [Mass/Vol] 1.70 mg/dL 0.70-1.30 [facility] Comment on above: The validity of the calculated GFR & GFRAA in patients over 70 years has not been determined. Clinical correlation is essential. Serum or plasma urea nitroge n measurement (mass/volume)Ordered By: Lawrence Skaggs on 05-05-2023 Urea nitrogen [Mass/Vol] 77 mg/dL 7-18 [facility] Squamous epithelial cells de tection in urine sediment by light microscopyOrdered By: Lawrence Skaggs on 05-05-2023 Epithelial cells.squamous LM Ql (Urine sed) 0 SEEN /hpf 0-5 [facility] Staphylococcus aureus DNA de tection by probe and target amplification methodOrdered By: Abril Barrera on 05-05-2023 S. aureus DNA YARA+probe Ql (Unsp spec) Positive Negative [facility] Thin prep Papanicolaou smear with manual screeningOrdered By: Lawrence Skaggs on 05-05-2023 Thin prep Papanicolaou smear with manual screening 3.0 g/dL 3.2-5.0 [facility] Thin prep Papanicolaou smear with manual screening 9 U/L 15-37 [facility] Thin prep Papanicolaou smear with manual screening 5 5-15 [facility] Urine blood detectionOrdered By: Lawrence Skaggs on 05-05-2023 RBC Ql (U) 250 /ul Negative [facility] Urine clarityOrdered By: Itzel Skaggs on 05-05-2023 Clarity (U) Cloudy Clear [facility] Urine color determinationOrd ered By: Lawrence Skaggs on 05-05-2023 Color (U) Yellow Yellow [facility] Urine glucose detectionOrder ed By: Lawrence Skaggs on 05-05-2023 Glucose Ql (U) 50 mg/dl Normal [facility] Urine leukocyte esterase det ection by dipstickOrdered By: Lawrence Skaggs on 05-05-2023 Leukocyte esterase Test strip Ql (U) 25 /ul Negative [facility] Urine pHOrdered By: Lawrence banda on 05-05-2023 pH (U) 6.5 [pH] 5.0 - 8.0 [facility] Urine sediment bacteria coun t by microscopy (number/high power field)Ordered By: Lawrence Skaggs on 05-05-2023 Bacteria LM.HPF (Urine sed) [#/Area] 0 /[HPF] None Seen [facility] Urine specific gravity measu rementOrdered By: Lawrence Skaggs on 05-05-2023 Specific gravity (U) [Rel density] 1.015 1.002-1.03 0 [facility] Urine urobilinogen measureme ntOrdered By: Lawrence Skaggs on 05-05-2023 Urobilinogen Ql (U) 1 mg/dl Normal [facility] Venous blood pH measurementO rdered By: Lawrence Skaggs on 05-05-2023 pH (BldV) 7.44 [pH] 7.32-7.42 [facility] Vital signsOrdered By: Galileo Skaggs on 05-05-2023 Oxygen saturation in Blood 39 % 50-70 [facility] CASE MANAGEMon 12-10-2022 CASE MANAGEM HNO ID: [id number] Author: Karen aMhan RN Service: ? Author Type: Registered Nurse Type: Care Mgt Progress Note Filed: 12/10/2022 2:54 PM Note Text: CARE MANAGEMENT PROGRESS NOTE SERVICE DATE: 12/10/2022 SERVICE TIME: 2:54 PM LOS: 1 day [facility] has set transport for this patient for 630pm. MD and nursing staff notified. DC packet on chart with facesheet and HANDP. SIGNATURE: Karen Mahan RN PATIENT NAME: Drea Copeland DATE: December 10, 2022 TIME: 2:54 PM PAGER/CONTACT #: [phone] [facility] CASE MANAGEM HNO ID: [id number] Author: Karen Mahan RN Service: ? Author Type: Registered Nurse Type: Care Mgt Progress Note Filed: 12/10/2022 2:06 PM Note Text: CARE MANAGEMENT PROGRESS NOTE SERVICE DATE: 12/10/2022 SERVICE TIME: 2:05 PM LOS: 1 day Per [facility] with MD transfer [facility], they will accept patient. Awaiting transport time. Form with patient and MD signature faxed back to [facility] this date. SIGNATURE: Karen Mahan RN PATIENT NAME: Drea Copeland DATE: December 10, 2022 TIME: 2:05 PM PAGER/CONTACT #: [phone] [facility] CBC panel Auto (Bld)on 12-10 Erythrocyte distribution width (RBC) [Ratio] 11.9 % Normal 11.5-15.0 [facility] Comment on above: Order Comment: Speci men Type: BLOOD SPECIMEN Ordering Facility: [facility] Address: [address] [place] [address] Performed By: #### 2 4321-2, 5643-2, 4024-6, 3298-7 #### [facility] CLIA [id number] [address] [place] [address] [place] Hematocrit (Bld) [Volume fraction] 48.6 % Normal 39.0-51.0 [facility] Comment on above: Order Comment: Speci men Type: BLOOD SPECIMEN Ordering Facility: [facility] Address: [address] [place] [address] Performed By: #### 2 4321-2, 5643-2, 4024-6, 3298-7 #### [facility] CLIA [id number] [address] [place] [address] [place] Hemoglobin (Bld) [Mass/Vol] 16.5 g/dL Normal 13.0-17.0 [facility] Comment on above: Order Comment: Speci men Type: BLOOD SPECIMEN Ordering Facility: [facility] Address: [address] [facility] [place] [address] Performed By: #### 2 4321-2, 5643-2, 4024-6, 3298-7 #### [facility] CLIA [id number] [address] [place] [address] [place] MCH (RBC) [Entitic mass] 28.8 pg Normal 26.0-34.0 [facility] Comment on above: Order Comment: Speci men Type: BLOOD SPECIMEN Ordering Facility: [facility] Address: [place] [address] Performed By: #### 2 4321-2, 5643-2, 4024-6, 329-7 #### [facility] CLIA [id number] [address] [place] [address] [place] MCHC (RBC) [Mass/Vol] 34.0 g/dL Normal 30.5-36.0 [facility] Comment on above: Order Comment: Speci men Type: BLOOD SPECIMEN Ordering Facility: [facility] Address: [address] [place] [id number] Performed By: #### 2 4321-2, 5643-2, 4024-6, 933-7 #### [facility] CLIA [id number] [address] [place] [address] [place] MCV (RBC) [Entitic vol] 84.8 fL Normal 80.0-100.0 [facility] Comment on above: Order Comment: Speci men Type: BLOOD SPECIMEN Ordering Facility: [facility] Address: [place] [address] Performed By: #### 2 4321-2, 5643-2, 4024-6, 1548-7 #### [facility] CLIA [id number] [address] [place] [address] [place] Nucleated RBC (Bld) [#/Vol] 10*3/uL Normal <0.01 [facility] Comment on above: Order Comment: Speci men Type: BLOOD SPECIMEN Ordering Facility: [facility] Address: [address] [place] [address] Performed By: #### 2 4321-2, 5643-2, 4024-6, 3298-7 #### [facility] CLIA [id number] [address] [place] [address] [place] Platelet mean volume (Bld) [Entitic vol] 10.3 fL Normal 9.0-12.7 [facility] Comment on above: Order Comment: Speci men Type: BLOOD SPECIMEN Ordering Facility: [facility] Address: [address] [place] [address] Performed By: #### 2 4321-2, 5643-2, 4024-6, 3298-7 #### [facility] CLIA [id number] [address] [place] [address] [place] Platelets (Bld) [#/Vol] 204 10*3/uL Normal 150-400 [facility] Comment on above: Order Comment: Speci men Type: BLOOD SPECIMEN Ordering Facility: [facility] Address: [address] [place] [address] Performed By: #### 2 4321-2, 5643-2, 4024-6, 329-7 #### [facility] CLIA [id number] [address] [place] [address] [place] RBC (Bld) [#/Vol] 5.73 10*6/uL Normal 4.20-6.00 [facility] Comment on above: Order Comment: Speci men Type: BLOOD SPECIMEN Ordering Facility: [facility] Address: [address] [place] [address] Performed By: #### 2 4321-2, 5643-2, 4024-6, 3298-7 #### [facility] CLIA [id number] [address] [place] [address] [place] WBC (Bld) [#/Vol] 7.22 10*3/uL Normal 3.70-11.00 [facility] Comment on above: Order Comment: Speci men Type: BLOOD SPECIMEN Ordering Facility: [facility] Address: [address], [place] [address] Performed By: #### 2 4321-2, 5643-2, 4024-6, 3298-7 #### [facility] CLIA [id number] [address] [place] [address] [place] CONSULTon 12-10-2022 CONSULT HNO ID: [id number] Author: Vishal Oneal DO Service: Neurology General Author Type: Physician Type: Consults Filed: 12/10/2022 4:07 PM Note Text: INITIAL CONSULT - GENERAL NEUROLOGY SERVICE DATE: 12/10/2022 Current Attending Provider: Cha Willingham DO Reason for Evaluation: Acute stroke HPI: This is Mr. Drea Copeland a 62 year old male who presented to the [facility] with right hemiparesis and word finding [...] by computer aided detection software: Not Performed. [employer] Liaison Officer: DONTAE Transcribe Date/Time: Dec 09 2022 10:34A Dictated by : CHA MCNAMARA MD This examination was interpreted and the report reviewed and electronically signed by: CHA MCNAMAAR MD on Dec 09 2022 10:39AM EST CTA HEAD W IVCON Exam End: 12/09/2022 10:33 AM (Final result) Impression: IMPRESSION: No large vessel occlusion or high-grade stenosis in the head or neck. Arterial blood flow was measured to detect acute large vessel occlusion by computer aided detection software: Not Performed. [employer] Liaison Officer: [facility] Transcribe Date/Time: Dec 09 2022 10:34A Dictated by : CHA MCNAMARA MD This examination was interpreted and the report reviewed and electronically signed by: CHA MCNAMARA MD on Dec 09 2022 10:39AM EST CT Head/Brain - Last [address] BRAIN WO IVCON Exam End: 12/09/2022 9:22 AM (Final result) Impression: IMPRESSION: Chronic changes are stable. No acute process. [employer] Liaison Officer: [facility] Transcribe Date/Time: Dec 09 2022 9:24A Dictated by : JENNA KNOX MD This examination was interpreted and the report reviewed and electronically signed by: JENNA KNOX MD on Dec 09 2022 9:25AM EST CT BRAIN ATTACK WO IVCON Exam En (more content not included)... [facility] CONSULT HNO ID: [id number] Author: Sandy Aquino APRN.FRONT OFFICE COORDINATOR Service: Neurology Stroke Author Type: Nurse Practitioner Type: Consults Filed: 12/10/2022 9:49 AM Note Text: Shoder Filler Note SERVICE DATE: 12/10/2022 SERVICE TIME: 9:22 AM PCP: MD OSMIN MARTIN REASON FOR STROKE EVALUATION: Aphasia, [...] (LIPITOR) 40 mg ORAL AT BEDTIME Dean Mcginnis, DO 40 mg at 12/09/222049 hydrALAZINE 10 mg injection (APRESOLINE) 10 mg INTRAVENOUS q 4 H PRN Dean Mcginnis DO heparin 5,000 Units injection 5,000 Units SUBCUTANEOUS q 12 H VenkateshDean price, 5,000 Units at 12/09/222049 REVIEW OF SYSTEMS [...] Arterial blood (more content not included)... Normal [facility] [facility] Comprehensive metabolic 2000 panelon 12-10-2022 Albumin [Mass/Vol] 3.7 g/dL Normal 3.2-5.0 [facility] Comment on above: Order Comment: Fatmata magallanes Type: BLOOD SPECIMEN Ordering Facility: [facility] Address: [address] [place] [address] Performed By: #### 2 4321-2, 5643-2, 4024-6, 3298-7 #### [facility] CLIA [id number] [address] [place] [address] [place] ALP [Catalytic activity/Vol] 100 U/L Normal 45-117 [facility] Comment on above: Order Comment: Felixi men Type: BLOOD SPECIMEN Ordering Facility: [facility] Address: [address] [place] [address] Performed By: #### 2 4321-2, 5643-2, 4024-6, 3298-7 #### [facility] CLIA [id number] [address] [place], [place] [address] [place] ALT [Catalytic activity/Vol] 15 U/L Normal 13-61 [facility] Comment on above: Order Comment: Fatmata magallanes Type: BLOOD SPECIMEN Ordering Facility: [facility] Address: [address] [place] [address] Result Comment: Resu lts may be falsely depressed after the administration of Sulfasalazine and/or Sulfapyridine. Performed By: #### 2 4321-2, 5643-2, 4024-6, 3298-7 #### [facility] CLIA [id number] [address] [place], [place] [address] [place] Anion gap [Moles/Vol] 13 mmol/L Normal 5-16 [facility] Comment on above: Order Comment: Felixi men Type: BLOOD SPECIMEN Ordering Facility: [facility] Address: [address] [place] [address] Performed By: #### 2 4321-2, 5643-2, 4024-6, 3298-7 #### [facility] CLIA [id number] [address] [place], [place] [address] [place] AST [Catalytic activity/Vol] 16 U/L Normal 8-34 [facility] Comment on above: Order Comment: Speci men Type: BLOOD SPECIMEN Ordering Facility: [facility] Address: [address] [place] [address] Result Comment: Resu lts may be falsely depressed after the administration of Sulfasalazine and/or Sulfapyridine. Performed By: #### 2 4321-2, 5643-2, 4024-6, 3297 #### [facility] CLIA [id number] [address] [place] [address] [place] Bilirubin [Mass/Vol] 1.1 mg/dL High 0.2-1.0 [facility] Comment on above: Order Comment: Speci men Type: BLOOD SPECIMEN Ordering Facility: [facility] Address: [address] [place] [address] Performed By: #### 2 4321-2, 5643-2, 4024-6, 3297 #### [facility] CLIA [id number] [address] [place] [address] [place] Calcium [Mass/Vol] 9.3 mg/dL Normal 8.5-10.5 [facility] Comment on above: Order Comment: Speci men Type: BLOOD SPECIMEN Ordering Facility: [facility] Address: [address] [place] [address] Performed By: #### 2 4321-2, 5643-2, 4024-6, 3297 #### [facility] CLIA [id number] [address] [place], [place] [address] [place] Chloride [Moles/Vol] 107 mmol/L Normal 98-107 [facility] Comment on above: Order Comment: Speci men Type: BLOOD SPECIMEN Ordering Facility: [facility] Address: [address] [place] [address] Performed By: #### 2 4321-2, 5643-2, 4024-6, 329-7 #### [facility] CLIA [id number] [address] [place] [address] [place] CO2 [Moles/Vol] 22 mmol/L Normal 21-32 [facility] Comment on above: Order Comment: Speci men Type: BLOOD SPECIMEN Ordering Facility: [facility] Address: [address] [place] [address] Performed By: #### 2 4321-2, 5643-2, 4024-6, 3298-7 #### [facility] CLIA [id number] [address] [place], [place] [address] [place] Creatinine [Mass/Vol] 1.01 mg/dL Normal 0.50-1.40 [facility] Comment on above: Order Comment: Speci men Type: BLOOD SPECIMEN Ordering Facility: [facility] Address: [address] [place] [address] Result Comment: Bianka ents receiving either N-Acetylcysteine (NAC) or Metamizole prior to venipuncture, may have falsely depressed results. Performed By: #### 2 4321-2, 5643-2, 4024-6, 3298-7 #### [facility] CLIA [id number] [address] [place] [address] Creatinine and Glomerular filtration rate.predicted panel (S/P/Bld) 84 mL/min/1.73m??? Normal >=60 [facility] Comment on above: Order Comment: Speci sona Type: BLOOD SPECIMEN Ordering Facility: [facility] Address: [address] [place] [address] Result Comment: Rocio mated Glomerular Filtration Rate [...] #### 2 4321-2, 5643-2, 4024-6, 3298-7 #### [facility] CLIA [id number] [address] [place] [address] [place] Glucose [Mass/Vol] 183 mg/dL High 70-100 [facility] Comment on above: Order Comment: Fatmata magallanes Type: BLOOD SPECIMEN Ordering Facility: [facility] Address: [address] [place] [address] Result Comment: The [place] Diabetes Association (ADA) provides guidance for cutoff [...] Standards of Medical Care in Diabetes 2016, [place] [employer]. Diabetes Care. 2016.39(Suppl 1). Results may be falsely elevated after the administration of Sulfapyridine. Results may be falsely depressed after the administration of Sulfasalazine. Performed By: #### 2 4321-2, 5643-2, 4024-6, 3298-7 #### [facility] CLIA [id number] [address] [place] [address] [place] Potassium [Moles/Vol] 4.0 mmol/L Normal 3.5-5.1 [facility] Comment on above: Order Comment: Fatmata magallanes Type: BLOOD SPECIMEN Ordering Facility: [facility] Address: [address] [place] [address] Performed By: #### 2 4321-2, 5643-2, 4024-6, 3298-7 #### [facility] CLIA [id number] [address] [place], [place] [address] [place] Protein [Mass/Vol] 6.6 g/dL Normal 6.0-8.5 [facility] Comment on above: Order Comment: Fatmata magallanes Type: BLOOD SPECIMEN Ordering Facility: [facility] Address: [address] [place] [address] Performed By: #### 2 4321-2, 5643-2, 4024-6, 3298-7 #### [facility] CLIA [id number] [address] [place], [place] [address] [place] Sodium [Moles/Vol] 142 mmol/L Normal 136-145 [facility] Comment on above: Order Comment: Speci men Type: BLOOD SPECIMEN Ordering Facility: [facility] Address: [address] [place] [address] Performed By: #### 2 4321-2, 5643-2, 4024-6, 3298-7 #### [facility] CLIA [id number] [address] [place], [place] [address] [place] Urea nitrogen [Mass/Vol] 10 mg/dL Normal 7-26 [facility] Comment on above: Order Comment: Speci men Type: BLOOD SPECIMEN Ordering Facility: [facility] Address: [address] [place], [place] [address] Performed By: #### 2 4321-2, 5643-2, 4024-6, 3298-7 #### [facility] CLIA [id number] [address] [place], [place] [address] [place] ECHOon 12-10-2022 Echocardiography Echocardiography Rep ort: Transthoracic Echo [facility] Date of service: 12/10/2022 9:53:25 AM Ordering physician: DEAN MCGINNIS Indication: Initial evaluation of Heart Failure Technologist: Alexandra Nuñez [facility] Interpreting physician: Aj Elias MD PATIENT: Name: [...] * * Final * * * CC [employer] : [id number] Normal [facility] HbA1c (Bld)on 12-10-2022 Average glucose Estimated from glycated hemoglobin (Bld) [Mass/Vol] 186 mg/dL Normal [facility] Comment on above: Order Comment: Fatmata magallanes Type: BLOOD SPECIMEN Ordering Facility: [facility] Address: [address] [place] [address] Result Comment: eAG: (Estimated average glucose) is a calculated value from HgbA1c and is factory representative of the average blood glucose level in the last 2-3 month period. Performed By: #### 2 4321-2, 5643-2, 4024-6, 3298-7 #### [facility] CLIA [id number] [address] [place] [address] [place] HbA1c (Bld) [Mass fraction] 8.1 % High 4.3-6.0 [facility] Comment on above: Order Comment: Fatmata magallanes Type: BLOOD SPECIMEN Ordering Facility: [facility] Address: [address] [place] [address] Result Comment: [facility] Diabetes Association guidelines indicate that patients with HgbA1c in the range 5.7-6.4% are at increased risk for development of diabetes, and intervention by lifestyle modification may be beneficial. HgbA1c greater or equal to 6.5% is considered diagnostic of diabetes. Performed By: #### 2 4321-2, 5643-2, 4024-6, 3298-7 #### [facility] CLIA [id number] [address] [place], [place] [address] [place] Lipid 1996 panelon 3 Cholesterol [Mass/Vol] 252 mg/dL High 0-199 [facility] Comment on above: Order Comment: Fatmata magallanes Type: BLOOD SPECIMEN Ordering Facility: [facility] Address: [address] [place] [address] Result Comment: <200 mg/dL, Desirable 200-239 mg/dL, Borderline high >239 mg/dL, High Performed By: #### 2 4321-2, 5643-2, 4024-6, 6988-7 #### [facility] CLIA [id number] [address] [place] [address] [place] Cholesterol in HDL [Mass/Vol] 37 mg/dL Low >40 [facility] Comment on above: Order Comment: Fatmata magallanes Type: BLOOD SPECIMEN Ordering Facility: [facility] Address: [address] [place] [address] Result Comment: 40-5 9 mg/dL, Acceptable >59 mg/dL, High: Negative risk factor for coronary heart disease <40 mg/dL, Low: Positive risk factor for coronary heart disease Performed By: #### 2 4321-2, 5643-2, 4024-6, 3298-7 #### [facility] CLIA [id number] [address] [place], [place] [address] [place] Cholesterol in LDL [Mass/Vol] 180 mg/dL High 0-129 [facility] Comment on above: Order Comment: Fatmata magallanes Type: BLOOD SPECIMEN Ordering Facility: [facility] Address: [address] [place] [address] Result Comment: <100 mg/dL, Optimal 100-129 mg/dL, Near optimal/above optimal 130-159 mg/dL, Borderline high 160-189 mg/dL, High >189 mg/dL, Very high Secondary prevention optimal LDL Cholesterol levels are recommended to be < 70 mg/dL Performed By: #### 2 4321-2, 5643-2, 4024-6, 3298-7 #### [facility] CLIA [id number] [address] [place], [place] [address] [place] Cholesterol in LDL/Cholesterol in HDL [Mass ratio] 4.86 {ratio} High <2.54 [facility] Comment on above: Order Comment: Fatmata magallanes Type: BLOOD SPECIMEN Ordering Facility: [facility] Address: [address] [place] [address] Result Comment: Refe nevillece: 1. National Cholesterol Education Program ATP III Guideline At-A-Glance Quick Desk Reference: National Heart, Lung, and Blood [place]. National Institutes of Health. 2001: NIH Publication No. 01-3305. 2. An International Atherosclerosis Society position paper: global recommendations for the management of dyslipidemia: executive summary, Atherosclerosis. 2014: 232(2):410-413. Performed By: #### 2 4321-2, 5643-2, 4024-6, 3298-7 #### [facility] CLIA [id number] [address] [place], [place] [address] [place] Cholesterol in VLDL [Mass/Vol] 35 mg/dL High <30 [facility] Comment on above: Order Comment: Fatmata magallanes Type: BLOOD SPECIMEN Ordering Facility: [facility] Address: [address] [place] [address] Performed By: #### 2 4321-2, 5643-2, 4024-6, 3298-7 #### [facility] CLIA [id number] [address] [place], [place] [address] [place] Cholesterol non HDL [Mass/Vol] 215 mg/dL High <130 [facility] Comment on above: Order Comment: Fatmata magallanes Type: BLOOD SPECIMEN Ordering Facility: [facility] Address: [address] [place] [address] Result Comment: <130 mg/dL, Optimal 130-159 mg/dL, Near optimal/above optimal 160-189 mg/dL, Borderline high 190-219 mg/dL, High >219 mg/dL, Very high Secondary prevention optimal non HDL Cholesterol levels are recommended to be <100 mg/dL Performed By: #### 2 4321-2, 5643-2, 4024-6, 7 #### [facility] CLIA [id number] [address] [place] [address] [place] Cholesterol.total/Heidy sterol in HDL [Mass ratio] 6.81 {ratio} High <5.10 [facility] Comment on above: Order Comment: Fatmata magallanes Type: BLOOD SPECIMEN Ordering Facility: [facility] Address: [address] [place] [address] Performed By: #### 2 4321-2, 5643-2, 4023-6, 7 #### [facility] CLIA [id number] [address] [place] [address] [place] FASTING TIME 0 hrs Normal [facility] Comment on above: Order Comment: Fatmata magallanes Type: BLOOD SPECIMEN Ordering Facility: [facility] Address: [address] [place] [address] Performed By: #### 2 4321-2, 5643-2, 6, 3297-09 #### [facility] CLIA [id number] [address] [place] [address] [place] Triglyceride [Mass/Vol] 174 mg/dL High 30-149 [facility] Comment on above: Order Comment: Fatmata magallanes Type: BLOOD SPECIMEN Ordering Facility: [facility] Address: [address] [place] [address] Result Comment: <150 mg/dL, Normal 150-199 mg/dL, Borderline high 200-499 mg/dL, High >499 mg/dL, Very high Patients receiving either N-Acetylcysteine (NAC) or Metamizole prior to venipuncture, may have falsely depressed results. Performed By: #### 2 4321-2, 5643-2, 4024-6, 7 #### [facility] CLIA [id number] [address] [place] MRI BRAIN WO IVCONon [...] nasal mass such as a nasal polyp.. [employer] Liaison Officer: DONTAE Transcribe Date/Time: Dec 10 2022 9:40A Dictated by : CESARIO WILLIAMSON, This examination was interpreted and the report reviewed and electronically signed by: WM REYEZ MD on Dec 10 2022 10:32AM EST [id number] [facility] Magnesium SerPl-mCncon 12-10 Magnesium [Mass/Vol] 1.5 mg/dL Low 1.6-2.6 [facility] Comment on above: Order Comment: Speci men Type: BLOOD SPECIMEN Ordering Facility: [facility] Address: [address] [place] [address] Performed By: #### 2 4321-2, 5643-2, 4024-6, 3298-7 #### [facility] CLIA [id number] [address] [place] [address] [place] NURSING PROGon 12-10-2022 NURSING PROG HNO ID: [id number] Author: Miranda Guzman RN Service: Nursing Author Type: Registered Nurse Type: Nursing Progress Note Filed: 12/10/2022 6:55 PM Note Text: Medication given for high blood pressure. Patient alert to Person and Place.. Sister at bedside, updated on patient status with patient's permission. Second bag of Mag hung at this time. [facility] NURSING PROG HNO ID: [id number] Author: Miranda Guzman RN Service: Nursing Author Type: Registered Nurse Type: Nursing Progress Note Filed: 12/10/2022 3:41 PM Note Text: Lost patient's IV site, RN attempted x2 with no success. Peer Rn attempted x1 with no success. Awaiting arrival of staff with ultrasound machine. Normal [facility] SARS-CoV-2 RNA Resp Ql YARA+p robeon 12-10-2022 SARS-CoV-2 (COVID-19) RNA YARA+probe Ql (Resp) COVID 19 RESULT: Not detected The method used is RT-PCR or an equivalent NAAT method. Reference Range(the expected result in uninfected individuals): Not detected Normal [facility] Comment on above: Performed By: #### 2 4321-2, 5643-2, 4024-6, 3298-7 #### [facility] CLIA [id number] [address] [place] [address] THERAPY NTon 12-10-2022 THERAPY NT HNO ID: [id number] Author: Robinson Chowdhury PT Service: Physical Therapy Author Type: Physical Therapist Type: Therapy (PT/OT/Speech/Resp) Filed: 12/10/2022 2:28 PM Note Text: Physical Therapy Evaluation SERVICE DATE: 12/10/2022 SERVICE TIME: 1320 to 1346 ROOM: [place] [address] Recommended Discharge Disposition: Acute Rehab Recommended Discharge Disposition Due to: Patient requires an active, intensive rehabilitation therapy program due to:, anticipate community discharge/previous community dweller, decline in functional status requiring daily skilled care, ongoing intervention of multiple therapy disciplines, poor trunk control PT 6 Clicks Score: 8 Precautions/Activity Restrictions: Fall Risk Current Hospital Course: Pt presents to [facility] with stroke like symptoms. He was admitted [...] Tub/Shower Type: walk in shower Equipment Owned: [employer]- Shower, Shower Chair Prior Functional Level: Within [...] R UE grossly 1/5, R LE grossly 1/5 Vital Signs Pulse: 93 SpO2: 98 % [...] Weakness (generalized) Interventions Provided: Evaluation, Therapeutic Activity (88102) $ Evaluation-Moderate (66525) Billed Units: 1 unit Therapeutic Activity (52777) Treatment Minutes: 11 $ Therapeutic Activity (70682) Billed Units: 1 unit Training AND Education [...] for complete details (more content not included)... [facility] THERAPY NT HNO ID: [id number] Author: Becky Graham OTR/Fabian Service: Occupational Therapy Author Type: Occupational Therapist Type: Therapy (PT/OT/Speech/Resp) Filed: 12/10/2022 10:52 AM Note Text: OCCUPATIONAL THERAPY MISSED VISIT SERVICE DATE: 12/10/2022 SERVICE TIME: 1052 to 1052 ROOM: [place] [address] ([facility] Patient not seen due to Test / Procedure (Card lab). SIGNATURE: NOAH Carlson/Fabian PATIENT NAME: Drea Copeland DATE: December 10, 2022 TIME: 10:[address] [facility] CBC W Auto Differential pane l (Bld)on 12-09-2022 Basophils (Bld) [#/Vol] 0.04 10*3/uL Normal <0.11 [facility] Comment on above: Order Comment: Speci sona Type: BLOOD SPECIMEN Ordering Facility: [facility] Address: [address] [place] [address] Performed By: #### 5 8410-2 #### [facility] CLIA [id number] [address] [place] [address] [place] Basophils/100 WBC (Bld) 0.6 % Normal [facility] Comment on above: Order Comment: Fatmata magallanes Type: BLOOD SPECIMEN Ordering Facility: [facility] Address: [address] [place] [address] Performed By: #### 5 8410-2 #### [facility] CLIA [id number] [address] [place] [address] [place] Differential cell count method Nom (Bld) Auto Normal [facility] Comment on above: Order Comment: Speci men Type: BLOOD SPECIMEN Ordering Facility: [facility] Address: [address] [place] [address] Performed By: #### 5 8410-2 #### [facility] CLIA [id number] [address] [place] [address] [place] Eosinophils (Bld) [#/Vol] 0.08 10*3/uL Normal <0.46 [facility] Comment on above: Order Comment: Speci men Type: BLOOD SPECIMEN Ordering Facility: [facility] Address: [address] [place] [address] Performed By: #### 5 8410-2 #### [facility] CLIA [id number] [address] [place] [address] [place] Eosinophils/100 WBC (Bld) 1.2 % Normal [facility] Comment on above: Order Comment: Speci men Type: BLOOD SPECIMEN Ordering Facility: [facility] Address: [address] [place] [address] Performed By: #### 5 8410-2 #### [facility] CLIA [id number] [address] [place] [address] [place] Erythrocyte distribution width (RBC) [Ratio] 11.6 % Normal 11.5-15.0 [facility] Comment on above: Order Comment: Speci men Type: BLOOD SPECIMEN Ordering Facility: [facility] Address: [address] [place] [address] Performed By: #### 5 8410-2 #### [facility] CLIA [id number] [address] [place] [address] [place] Hematocrit (Bld) [Volume fraction] 49.0 % Normal 39.0-51.0 [facility] Comment on above: Order Comment: Speci men Type: BLOOD SPECIMEN Ordering Facility: [facility] Address: [address] [place] [address] Performed By: #### 5 8410-2 #### [facility] CLIA [id number] [address] [place] [address] [place] Hemoglobin (Bld) [Mass/Vol] 16.7 g/dL Normal 13.0-17.0 [facility] Comment on above: Order Comment: Speci men Type: BLOOD SPECIMEN Ordering Facility: [facility] Address: [address] [place] [address] Performed By: #### 5 8410-2 #### [facility] CLIA [id number] [address] [place] [address] [place] Immature granulocytes (Bld) [#/Vol] 10*3/uL Normal <0.10 [facility] Comment on above: Order Comment: Speci men Type: BLOOD SPECIMEN Ordering Facility: [facility] Address: [address] [place] [address] Performed By: #### 5 8410-2 #### [facility] CLIA [id number] [address] [place] [address] [place] Immature granulocytes/100 WBC (Bld) 0.3 % Normal [facility] Comment on above: Order Comment: Speci men Type: BLOOD SPECIMEN Ordering Facility: [facility] Address: [address] [place] [address] Performed By: #### 5 8410-2 #### [facility] CLIA [id number] [address] [place] [address] [place] Lymphocytes (Bld) [#/Vol] 2.22 10*3/uL Normal 1.00-4.00 [facility] Comment on above: Order Comment: Speci men Type: BLOOD SPECIMEN Ordering Facility: [facility] Address: [address] [place] [address] Performed By: #### 5 8410-2 #### [facility] CLIA [id number] [address] [place] [address] [place] Lymphocytes/100 WBC (Bld) 33.7 % Normal [facility] Comment on above: Order Comment: Speci men Type: BLOOD SPECIMEN Ordering Facility: [facility] Address: [address] [place] [address] Performed By: #### 5 8410-2 #### [facility] CLIA [id number] [address] [place] [address] [place] MCH (RBC) [Entitic mass] 28.9 pg Normal 26.0-34.0 [facility] Comment on above: Order Comment: Speci men Type: BLOOD SPECIMEN Ordering Facility: [facility] Address: [address] [place] [address] Performed By: #### 5 8410-2 #### [facility] CLIA [id number] [address] [place] [address] [place] MCHC (RBC) [Mass/Vol] 34.1 g/dL Normal 30.5-36.0 [facility] Comment on above: Order Comment: Speci men Type: BLOOD SPECIMEN Ordering Facility: [facility] Address: [address] [place] [address] Performed By: #### 5 8410-2 #### [facility] CLIA [id number] [address] [place] [address] [place] MCV (RBC) [Entitic vol] 84.8 fL Normal 80.0-100.0 [facility] Comment on above: Order Comment: Speci men Type: BLOOD SPECIMEN Ordering Facility: [facility] Address: [address] [place] [address] Performed By: #### 5 8410-2 #### [facility] CLIA [id number] [address] [place] [address] [place] Monocytes (Bld) [#/Vol] 0.37 10*3/uL Normal <0.87 [facility] Comment on above: Order Comment: Speci men Type: BLOOD SPECIMEN Ordering Facility: [facility] Address: [address] [place] [address] Performed By: #### 5 8410-2 #### [facility] CLIA [id number] [address] [place] [address] [place] Monocytes/100 WBC (Bld) 5.6 % Normal [facility] Comment on above: Order Comment: Speci men Type: BLOOD SPECIMEN Ordering Facility: [facility] Address: [address] [place] [address] Performed By: #### 5 8410-2 #### [facility] CLIA [id number] [address] [place] [address] [place] Neutrophils (Bld) [#/Vol] 3.86 10*3/uL Normal 1.45-7.50 [facility] Comment on above: Order Comment: Speci men Type: BLOOD SPECIMEN Ordering Facility: [facility] Address: [address] [place] [address] Performed By: #### 5 8410-2 #### [facility] CLIA [id number] [address] [place] [address] [place] Neutrophils/100 WBC (Bld) 58.6 % Normal [facility] Comment on above: Order Comment: Speci men Type: BLOOD SPECIMEN Ordering Facility: [facility] Address: [address] [place] [address] Performed By: #### 5 8410-2 #### [facility] CLIA [id number] [address] [place] [address] [place] Nucleated RBC (Bld) [#/Vol] 10*3/uL Normal <0.01 [facility] Comment on above: Order Comment: Speci men Type: BLOOD SPECIMEN Ordering Facility: [facility] Address: [address] [place] [address] Performed By: #### 5 8410-2 #### [facility] CLIA [id number] [address] [place] [address] [place] Nucleated RBC/100 WBC (Bld) [Ratio] 0.0 /100 WBC Normal [facility] Comment on above: Order Comment: Speci men Type: BLOOD SPECIMEN Ordering Facility: [facility] Address: [address] [place] [address] Performed By: #### 5 8410-2 #### [facility] CLIA [id number] [address] [place] [address] [place] Platelet mean volume (Bld) [Entitic vol] 10.3 fL Normal 9.0-12.7 [facility] Comment on above: Order Comment: Speci men Type: BLOOD SPECIMEN Ordering Facility: [facility] Address: [address] [place] [address] Performed By: #### 5 8410-2 #### [facility] CLIA [id number] [address] [place] [address] [place] Platelets (Bld) [#/Vol] 194 10*3/uL Normal 150-400 [facility] Comment on above: Order Comment: Speci men Type: BLOOD SPECIMEN Ordering Facility: [facility] Address: [address] [place] [address] Performed By: #### 5 8410-2 #### [facility] CLIA [id number] [address] [place] [address] [place] RBC (Bld) [#/Vol] 5.78 10*6/uL Normal 4.20-6.00 [facility] Comment on above: Order Comment: Speci men Type: BLOOD SPECIMEN Ordering Facility: [facility] Address: [address] [place] [address] Performed By: #### 5 8410-2 #### [facility] CLIA [id number] [address] [place] [address] [place] WBC (Bld) [#/Vol] 6.59 10*3/uL Normal 3.70-11.00 [facility] Comment on above: Order Comment: Speci men Type: BLOOD SPECIMEN Ordering Facility: [facility] Address: [address] [place] [address] Performed By: #### 5 8410-2 #### [facility] CLIA [id number] [address] [place] [address] BRAIN WO IVCONon 12-10-[address] BRAIN WO IVCON * * *Final Report* * * DATE OF EXAM: Dec 09 2022 9:22AM [facility] 0504 - CT BRAIN WO IVCON / [...] base and imaged soft tissues are unremarkable. Chalker Soles (topogram) images: Unremarkable. IMPRESSION: Chronic changes are stable. No acute process. [employer] Liaison Officer: PSCB Transcribe Date/Time: Dec 09 2022 9:24A Dictated by : JENNA KNOX MD This examination was interpreted and the report reviewed and electronically signed by: JENNA KNOX MD on Dec 09 2022 9:25AM EST [id number] [facility] CTA HEAD W IVCONon 3 CTA HEAD W IVCON * * *Final Report* * * DATE OF EXAM: Dec 09 2022 10:33AM [facility] 0022 - CTA HEAD W IVCON / [...] circulation: Distal vertebral arteries, basilar trunk and programs assistant are normal in caliber. No vessel cut off, filling defect, significant focal narrowing, or evidence of aneurysm. Opacified dural venous sinuses and major deep and superficial draining veins are patent. Chalker Soles (topogram) images: No additional findings. IMPRESSION: No large vessel occlusion or high-grade stenosis in the head or neck. Arterial blood flow was measured to detect acute large vessel occlusion by computer aided detection software: Not Performed. [employer] Liaison Officer: PSCB Transcribe Date/Time: Dec 09 2022 10:34A Dictated by : CHA MCNAMARA MD This examination was interpreted and the report reviewed and electronically signed by: CHA MCNAMARA MD on Dec 09 2022 10:39AM EST [id number] [facility] CTA NECK W IVCONon CTA NECK W IVCON * * *Final Report* * * DATE OF EXAM: Dec 09 2022 10:33AM [facility] 0024 - CTA NECK W IVCON / [...] circulation: Distal vertebral arteries, basilar trunk and programs assistant are normal in caliber. No vessel cut off, filling defect, significant focal narrowing, or evidence of aneurysm. Opacified dural venous sinuses and major deep and superficial draining veins are patent. Chalker Soles (topogram) images: No additional findings. IMPRESSION: No large vessel occlusion or high-grade stenosis in the head or neck. Arterial blood flow was measured to detect acute large vessel occlusion by computer aided detection software: Not Performed. [employer] Liaison Officer: PSCB Transcribe Date/Time: Dec 09 2022 10:34A Dictated by : CHA MCNAMARA MD This examination was interpreted and the report reviewed and electronically signed by: CHA MCNAMARA MD on Dec 09 2022 10:39AM EST [id number] Normal [facility] Comprehensive metabolic 2000 panelon 12-09-2022 Albumin [Mass/Vol] 3.9 g/dL Normal 3.2-5.0 [facility] Comment on above: Order Comment: Speci men Type: BLOOD SPECIMEN Ordering Facility: [facility] Address: [address] [place] [address] Performed By: #### 5 8410-2 #### [facility] CLIA [id number] [address] [place] [address] [place] ALP [Catalytic activity/Vol] 107 U/L Normal 45-117 [facility] Comment on above: Order Comment: Speci men Type: BLOOD SPECIMEN Ordering Facility: [facility] Address: [address] [place] [address] Performed By: #### 5 8410-2 #### [facility] CLIA [id number] [address] [place] [address] [place] ALT [Catalytic activity/Vol] 17 U/L Normal 13-61 [facility] Comment on above: Order Comment: Fatmata magallanes Type: BLOOD SPECIMEN Ordering Facility: [facility] Address: [address] [place] [address] Result Comment: Resu lts may be falsely depressed after the administration of Sulfasalazine and/or Sulfapyridine. Performed By: #### 5 8410-2 #### [facility] CLIA [id number] [address] [place] [address] [place] Anion gap [Moles/Vol] 11 mmol/L Normal 5-16 [facility] Comment on above: Order Comment: Felixi men Type: BLOOD SPECIMEN Ordering Facility: [facility] Address: [address] [place] [address] Performed By: #### 5 8410-2 #### [facility] CLIA [id number] [address] [place] [address] [place] AST [Catalytic activity/Vol] 17 U/L Normal 8-34 [facility] Comment on above: Order Comment: Speci men Type: BLOOD SPECIMEN Ordering Facility: [facility] Address: [address] [place] [address] Result Comment: Resu lts may be falsely depressed after the administration of Sulfasalazine and/or Sulfapyridine. Performed By: #### 5 8410-2 #### [facility] CLIA [id number] [address] [place] [address] [place] Bilirubin [Mass/Vol] 1.1 mg/dL High 0.2-1.0 [facility] Comment on above: Order Comment: Speci men Type: BLOOD SPECIMEN Ordering Facility: [facility] Address: [address] [place] [address] Performed By: #### 5 8410-2 #### [facility] CLIA [id number] [address] [place] [address] [place] Calcium [Mass/Vol] 9.6 mg/dL Normal 8.5-10.5 [facility] Comment on above: Order Comment: Speci men Type: BLOOD SPECIMEN Ordering Facility: [facility] Address: [address] [place] [address] Performed By: #### 5 8410-2 #### [facility] CLIA [id number] [address] [place] [address] [place] Chloride [Moles/Vol] 104 mmol/L Normal 98-107 [facility] Comment on above: Order Comment: Speci men Type: BLOOD SPECIMEN Ordering Facility: [facility] Address: [address] [place] [address] Performed By: #### 5 8410-2 #### [facility] CLIA [id number] [address] [place] [address] [place] CO2 [Moles/Vol] 27 mmol/L Normal 21-32 [facility] Comment on above: Order Comment: Fatmata magallanes Type: BLOOD SPECIMEN Ordering Facility: [facility] Address: [address] [place] [address] Performed By: #### 5 8410-2 #### [facility] CLIA [id number] [address] [place] [address] [place] Creatinine [Mass/Vol] 1.03 mg/dL Normal 0.50-1.40 [facility] Comment on above: Order Comment: Speci men Type: BLOOD SPECIMEN Ordering Facility: [facility] Address: [address] [place] [address] Result Comment: Bianka ents receiving either N-Acetylcysteine (NAC) or Metamizole prior to venipuncture, may have falsely depressed results. Performed By: #### 5 8410-2 #### [facility] CLIA [id number] [address] [place] [address] [place] Creatinine and Glomerular filtration rate.predicted panel (S/P/Bld) 82 mL/min/1.73m??? Normal >=60 [facility] Comment on above: Order Comment: Felixi sona Type: BLOOD SPECIMEN Ordering Facility: [facility] Address: [address] [place] [address] Result Comment: Rocio mated Glomerular Filtration Rate [...] GFR. Performed By: #### 5 8410-2 #### [facility] CLIA [id number] [address] [place] [address] [place] Glucose [Mass/Vol] 201 mg/dL High 70-100 [facility] Comment on above: Order Comment: Fatmata magallanes Type: BLOOD SPECIMEN Ordering Facility: [facility] Address: [address] [place] [address] Result Comment: The [employer] [place] [employer] (ADA) provides guidance for cutoff [...] Standards of Medical Care in Diabetes 2016, [employer] [place] [employer]. Diabetes Care. 2016.39(Suppl 1). Results may be falsely elevated after the administration of Sulfapyridine. Results may be falsely depressed after the administration of Sulfasalazine. Performed By: #### 5 8410-2 #### [facility] CLIA [id number] [address] [place] [address] [place] Potassium [Moles/Vol] 3.7 mmol/L Normal 3.5-5.1 [facility] Comment on above: Order Comment: Speci men Type: BLOOD SPECIMEN Ordering Facility: [facility] Address: [address] [place] [address] Performed By: #### 5 8410-2 #### [facility] CLIA [id number] [address] [place] [address] [place] Protein [Mass/Vol] 6.9 g/dL Normal 6.0-8.5 [facility] Comment on above: Order Comment: Speci men Type: BLOOD SPECIMEN Ordering Facility: [facility] Address: [address] [place] [address] Performed By: #### 5 8410-2 #### [facility] CLIA [id number] [address] [place] [address] [place] Sodium [Moles/Vol] 142 mmol/L Normal 136-145 [facility] Comment on above: Order Comment: Speci men Type: BLOOD SPECIMEN Ordering Facility: [facility] Address: [address] [place] [address] Performed By: #### 5 8410-2 #### [facility] CLIA [id number] [address] [place], [place] [address] [place] Urea nitrogen [Mass/Vol] 9 mg/dL Normal 09-26 [facility] Comment on above: Order Comment: Speci men Type: BLOOD SPECIMEN Ordering Facility: [facility] Address: [place] [address] Performed By: #### 5 8410-2 #### [facility] CLIA [id number] [address] [place], [place] [address] [place] ECG COMPLETEon 12-09-2022 ECG COMPLETE Ventricular Rate : 9 0 BPM Atrial Rate : 90 BPM P-R Interval : 142 ms QRS Duration : 82 ms Q-T Interval : 378 ms QTC Calculation(Bazett) : 463 ms Calculated P Stephens : 51 degrees Calculated R Stephens : 40 degrees Calculated T Stephens : 56 degrees Normal sinus rhythm Prolonged QT Abnormal ECG When compared with ECG of 06-DEC-2022 17:22, No significant change was found Confirmed by TIMI TSAI MD ([id number]) on 12/09/2022 4:32:23 PM NAME : DREA COPELAND PID : [id number] : 1960 Gender : Male Race : ORD : [id number] Procedure Date : Dec 09 2022 08:02:26 Edit Date : Dec 09 2022 16:32:23 Diagnosis: Normal sinus rhythm Prolonged QT Abnormal ECG When compared with ECG of 06-DEC-2022 17:22, No significant change was found Confirmed by TIMI TSAI MD ([id number]) on 12/09/2022 4:32:23 PM Test Reason : STAT Location : 0 : ED 10 Overread By : TIMI TSAI MD Edited By : TIMI TSAI MD Referred By : , Acquired by : [facility] ED NOTEon 12-09-2022 ED NOTE HNO ID: [id number] Author: Noy Harding RN Service: ? Author Type: Registered Nurse Type: ED Notes Filed: 12/09/2022 2:16 PM Note Text: Report to 5M RN [facility] ED NOTE HNO ID: [id number] Author: Alexandra Crawford RN Service: ? Author Type: Registered Nurse Type: ED Notes Filed: 12/09/2022 7:47 AM Note Text: Bed: 10-ED Expected date: Expected time: Means of arrival: Comments: EMS Normal [facility] ED PROV NOTEon 12-09-2022 ED PROV NOTE HNO ID: [id number] Author: Hubert Bustillo MD Service: Emergency Medicine Author Type: Physician [...] By, (c) = Cosigned By Initials Name Hubert Church MD Diagnostic Testing ED Labs Ordered and [...] APTT re (more content not included)... Normal [facility] Ethanol SerPl-ncon 023 Ethanol [Mass/Vol] 0.004 gm/dL Normal <0.010 [facility] Comment on above: Order Comment: Fatmata magallanes Type: BLOOD SPECIMEN Ordering Facility: [facility] Address: [address] [place] [address] Performed By: #### 5 8410-2 #### [facility] CLIA [id number] [address] [place] [address] STATES [facility] HIGH SENSITIVITY TROPONIN Io n 12-09-2022 Tropinin I.cardiac panel High sensitivity method 15.1 pg/mL Normal 0.0-54.0 [facility] Comment on above: Order Comment: Fatmata magallanes Type: BLOOD SPECIMEN Ordering Facility: [facility] Address: [address] [place] [address] Result Comment: This assay uses different antibodies than our current assay, and assays, even by the same hammer smith may recognize different regions of the antibody and cannot be used interchangeably. Expect results of this assay to run higher than the previous assay. Performed By: #### 5 8410-2 #### [facility] CLIA [id number] [address] [place] [address] [place] HISTORY PHYSICALon 3 HISTORY PHYSICAL HNO ID: [id number] Author: Dean Mcginnis DO Service: Hospital Medicine Author Type: Physician Type: HANDP Filed: 12/09/2022 6:21 PM Note Text: HISTORY AND PHYSICAL SERVICE DATE: 12/09/2022 SERVICE TIME: 6:00 PM PRIMARY CARE PHYSICIAN: NEO MARTIN Subjective CHIEF COMPLAINT: Right-sided facial droop and weakness HPI: Patient is a 62-year-old male who was brought to the [facility] emergency department earlier today by EMS [...] Luis Alberto (more content not included)... Normal [facility] Lipase SerPl-cCncon 12-10-19 Lipase [Catalytic activity/Vol] 37 U/L Normal 12-60 [facility] Comment on above: Order Comment: Fatmata magallanes Type: BLOOD SPECIMEN Ordering Facility: [facility] Address: [address] [place] [address] Performed By: #### 5 8410-2 #### [facility] CLIA [id number] [address] [place], [place] [address] [place] Magnesium SerPl-mCncon 12-09 Magnesium [Mass/Vol] 1.5 mg/dL Low 1.6-2.6 [facility] Comment on above: Order Comment: Fatmata magallanes Type: BLOOD SPECIMEN Ordering Facility: [facility] Address: [address] [place] [address] Performed By: #### 5 8410-2 #### [facility] CLIA [id number] [address] [place] [address] [place] PT panel Coag (PPP)on 2022 INR Coag (PPP) [Relative time] 1.2 {INR} Normal 0.9-1.3 [facility] Comment on above: Order Comment: Fatmata magallanes Type: BLOOD SPECIMEN Ordering Facility: [facility] Address: [address] [place] [address] Result Comment: Kylie min K Antagonist (VKA) Therapeutic Range: INR 2 to 3 (Target INR of 2.5) Note: For patients treated with VKA drugs, such as warfarin, the [employer] [place] [employer] 2012 Guideline recommends [...] GH, et al. Chest 2012, 141:7S-47S Giles RA et al. [facility] 2017, 70: 252-289 Performed By: #### 5 8410-2 #### [facility] CLIA [id number] [address] [place] [address] [place] PT Coag (PPP) [Time] 12.6 s Normal 9.7-13.0 [facility] Comment on above: Order Comment: Speci men Type: BLOOD SPECIMEN Ordering Facility: [facility] Address: [address] [place] [address] Performed By: #### 5 8410-2 #### [facility] CLIA [id number] [address] [place] [address] [place] TOX SCREEN ROUT URon 023 Amphetamines Confirm (U) [Mass/Vol] Negative Normal Negative [facility] Comment on above: Order Comment: Speci men Type: BLOOD SPECIMEN Ordering Facility: [facility] Address: [address] [place] [address] Result Comment: Cuto ff threshold at 1000 ng/mL. Performed By: #### 2 4321-2, 5643-2, 4024-6, 3298-7 #### [facility] CLIA [id number] [address] [place] [address] [place] BARBITURATES, URINE Negative Normal Negative [facility] Comment on above: Order Comment: Speci men Type: BLOOD SPECIMEN Ordering Facility: [facility] Address: [address] [place] [address] Result Comment: Cuto ff threshold at 200 ng/mL. Performed By: #### 2 4321-2, 5643-2, 4024-6, 3298-7 #### [facility] CLIA [id number] [address] [place] [address] [place] BENZODIAZEPINES, UR Negative Normal Negative [facility] Comment on above: Order Comment: Speci men Type: BLOOD SPECIMEN Ordering Facility: [facility] Address: [address] [place] [address] Result Comment: Cuto ff threshold at 200 ng/mL. Performed By: #### 2 4321-2, 5643-2, 4024-6, 3298-7 #### [facility] CLIA [id number] [address] [place] [address] [place] Cannabinoids Screen Ql (U) Negative Normal Negative [facility] Comment on above: Order Comment: Speci men Type: BLOOD SPECIMEN Ordering Facility: [facility] Address: [address] [place] [address] Result Comment: Cuto ff threshold at 50 ng/mL. Performed By: #### 2 4321-2, 5643-2, 4024-6, 329-7 #### [facility] CLIA [id number] [address] [place] [address] [place] [place]ACK[place] Cocaine Ql (U) Negative Normal Negative [facility] Comment on above: Order Comment: Speci men Type: BLOOD SPECIMEN Ordering Facility: [facility] Address: [address] [place] [address] Result Comment: Cuto ff threshold at 300 ng/mL. Performed By: #### 2 4321-2, 5643-2, 4024-6, 329-7 #### [facility] CLIA [id number] [address] [place] [address] [place] Opiates Screen Ql (U) Negative Normal Negative [facility] Comment on above: Order Comment: Speci men Type: BLOOD SPECIMEN Ordering Facility: [facility] Address: [address] [place] [address] Result Comment: Cuto ff threshold at 300 ng/mL. Performed By: #### 2 4321-2, 5643-2, 4024-6, 329-7 #### [facility] CLIA [id number] [address] [place] [address] Phencyclidine Ql (U) Negative Normal Negative [facility] Comment on above: Order Comment: Speci men Type: BLOOD SPECIMEN Ordering Facility: [facility] Address: [address] [place] [address] Result Comment: Cuto ff threshold at 25 ng/mL. Performed By: #### 2 4321-2, 5643-2, 4024-6, 329-7 #### [facility] CLIA [id number] [address] [place] [address] [place] Urinalysis complete panel (U )on 12-09-2022 Bacteria LM.HPF (Urine sed) [#/Area] None Seen Normal None Seen [facility] Comment on above: Order Comment: Speci men Type: BLOOD SPECIMEN Ordering Facility: [facility] Address: [address] [place] [address] Performed By: #### 2 4321-2, 5643-2, 4024-6, 7 #### [facility] CLIA [id number] [address] [place] [address] [place] Bilirubin Ql (U) Negative Normal Negative [facility] Comment on above: Order Comment: Speci men Type: BLOOD SPECIMEN Ordering Facility: [facility] Address: [address] [place] [address] Performed By: #### 2 4321-2, 5643-2, 4024-6, 7 #### [facility] CLIA [id number] [address] [place] [address] [place] Clarity (Unsp spec) Clear Normal Clear [facility] Comment on above: Order Comment: Speci men Type: BLOOD SPECIMEN Ordering Facility: [facility] Address: [address] [place] [address] Performed By: #### 2 4321-2, 5643-2, 4024-6, 329-7 #### [facility] CLIA [id number] [address] [place] [address] [place] Color (U) Yellow Normal Yellow [facility] Comment on above: Order Comment: Speci men Type: BLOOD SPECIMEN Ordering Facility: [facility] Address: [address] [place] [address] Performed By: #### 2 4321-2, 5643-2, 4024-6, 3298-7 #### [facility] CLIA [id number] [address] [place] [address] [place] Epithelial cells LM.HPF (Urine sed) [#/Area] Few Normal [facility] Comment on above: Order Comment: Speci men Type: BLOOD SPECIMEN Ordering Facility: [facility] Address: [address] [place] [address] Performed By: #### 2 4321-2, 5643-2, 4024-6, 3298-7 #### [facility] CLIA [id number] [address] [place] [address] [place] Glucose Test strip (U) [Mass/Vol] 1+ Abnormal Negative [facility] Comment on above: Order Comment: Speci men Type: BLOOD SPECIMEN Ordering Facility: [facility] Address: [address] [place] [address] Performed By: #### 2 4321-2, 5643-2, 4024-6, 3298-7 #### [facility] CLIA [id number] [address] [place] [address] [place] Hemoglobin Ql (U) 2+ Abnormal Negative [facility] Comment on above: Order Comment: Speci men Type: BLOOD SPECIMEN Ordering Facility: [facility] Address: [address] [place] [address] Performed By: #### 2 4321-2, 5643-2, 4024-6, 3298-7 #### [facility] CLIA [id number] [address] [place], [place] [address] [place] Ketones Ql (U) 1+ Abnormal Negative [facility] Comment on above: Order Comment: Speci men Type: BLOOD SPECIMEN Ordering Facility: [facility] Address: [address] [place] [address] Performed By: #### 2 4321-2, 5643-2, 4024-6, 7 #### [facility] CLIA [id number] [address] [place] [address] Leukocyte esterase Test strip Ql (U) Negative Normal Negative [facility] Comment on above: Order Comment: Speci men Type: BLOOD SPECIMEN Ordering Facility: [facility] Address: [address] [place] [address] Performed By: #### 2 4321-2, 5643-2, 4024-6, 7 #### [facility] CLIA [id number] [address] [place] [address] [place] Nitrite Ql (U) Negative Normal Negative [facility] Comment on above: Order Comment: Speci men Type: BLOOD SPECIMEN Ordering Facility: [facility] Address: [address] [place] [address] Performed By: #### 2 4321-2, 5643-2, 402-6, 3297-09 #### [facility] CLIA [id number] [address] [place] [address] [place] pH (U) 5.0 [pH] Normal 5.0-8.0 [facility] Comment on above: Order Comment: Speci men Type: BLOOD SPECIMEN Ordering Facility: [facility] Address: [address] [place] [address] Performed By: #### 2 4321-2, 5643-2, 402-6, 7 #### [facility] CLIA [id number] [address] [place] [address] [place] Protein (U) [Mass/Vol] 3+ Abnormal Negative [facility] Comment on above: Order Comment: Speci men Type: BLOOD SPECIMEN Ordering Facility: [facility] Address: [address] [place] [address] Performed By: #### 2 4321-2, 5643-2, 4024-6, 329-7 #### [facility] CLIA [id number] [address] [place] [address] [place] RBC LM.HPF (Urine sed) [#/Area] 3-5 /HPF Abnormal 0-3 /HPF [facility] Comment on above: Order Comment: Speci men Type: BLOOD SPECIMEN Ordering Facility: [facility] Address: [address] [place] [address] Performed By: #### 2 4321-2, 5643-2, 4024-6, 3298-7 #### [facility] CLIA [id number] [address] [place] [address] [place] Specific gravity (U) [Rel density] >1.030 High 1.005-1.03 0 [facility] Comment on above: Order Comment: Speci men Type: BLOOD SPECIMEN Ordering Facility: [facility] Address: [address] [place] [address] Performed By: #### 2 4321-2, 5643-2, 4024-6, 3298-7 #### [facility] CLIA [id number] [address] [place] [address] Urobilinogen Ql (U) Negative Normal Negative [facility] Comment on above: Order Comment: Speci men Type: BLOOD SPECIMEN Ordering Facility: [facility] Address: [address] [place] [address] Performed By: #### 2 4321-2, 5643-2, 4024-6, 3298-7 #### [facility] CLIA [id number] [address] [place] [address] OF [place] WBC LM.HPF (Urine sed) [#/Area] 0-5 /HPF Normal 0-5 /HPF [facility] Comment on above: Order Comment: Speci men Type: BLOOD SPECIMEN Ordering Facility: [facility] Address: [address] [place] [address] Performed By: #### 2 4321-2, 5643-2, 4024-6, 3298-7 #### [facility] CLIA [id number] [address] [place] [address] OF [place]ACKIE XR CHEST 1V FRONTAL PORTon [...] IMPRESSION: No acute radiographic process. Dictated by [employer] Operator: Brandon Ortiz MD I, Jenna Knox MD, have supervised the procedure and/or image review, and agree with the above interpretation and report. [employer] Liaison Officer: PSCB Transcribe Date/Time: Dec 09 2022 9:04A Dictated by : BRANDON ORTIZ MD This examination was interpreted and the report reviewed and electronically signed by: JENNA KNOX MD on Dec 09 2022 9:19AM EST [id number] Normal [facility] aPTT PPPon 12-09-2022 aPTT Coag (PPP) [Time] 30.8 s Normal 23.0-32.4 [facility] Comment on above: Order Comment: Speci men Type: BLOOD SPECIMEN Ordering Facility: [facility] Address: [address] [place] [address] Performed By: #### 5 8410-2 #### [facility] CLIA [id number] [address] ED NOTEon 12-07-2022 ED NOTE HNO ID: [id number] Author: Ember Alvarado RN Service: ? Author [...] headache, and denied any sensory deficits. Normal [facility] APAP SerPl-mCncon 12-06-2022 Acetaminophen [Mass/Vol] ug/mL Low 10-30 [facility] Comment on above: Order Comment: Fatmata magallanes Type: BLOOD SPECIMEN Ordering Facility: [facility] Address: [address] [place] [address] Result Comment: Toxi c > 50 ug/mL 4 hours post ingestion The Aissatou Trejo nomogram can be used to estimate the probability of hepatotoxicity via the relationship of plasma acetaminophen concentration to the post ingestion interval. (Tor. Pediatrics. 1975. 55:871 to 876 and Aissatou et al. Arch Database Management System Specialist Med. 1981. 141:380 to 385). Reference ranges and high/low indicator flags are provided as general guidelines only. The treating physician must determine appropriate target levels/dosing based on the specific clinical situation. Performed By: #### 2 4321-2, 5643-2, 4024-6, 3298-7 #### [facility] CLIA [id number] [address] [place], [place] [address] [place] Basic metabolic 2000 panelon 12-06-2022 Anion gap [Moles/Vol] 10 mmol/L Normal 5-16 [facility] Comment on above: Order Comment: Fatmata magallanes Type: BLOOD SPECIMEN Ordering Facility: [facility] Address: [address] [place] [address] Performed By: #### 2 4321-2, 5643-2, 4024-6, 3298-7 #### [facility] CLIA [id number] [address] [place], [place] [address] [place] Calcium [Mass/Vol] 9.7 mg/dL Normal 8.5-10.5 [facility] Comment on above: Order Comment: Speci men Type: BLOOD SPECIMEN Ordering Facility: [facility] Address: [address] [place] [id number] Performed By: #### 2 4321-2, 5643-2, 4024-6, 3298-7 #### [facility] CLIA [id number] [address] [place], [place] [address] [place] Chloride [Moles/Vol] 103 mmol/L Normal 98-107 [facility] Comment on above: Order Comment: Speci men Type: BLOOD SPECIMEN Ordering Facility: [facility] Address: [address] [place] [id number] Performed By: #### 2 4321-2, 5643-2, 4024-6, 3298-7 #### [facility] CLIA [id number] [address] [place], [place] [address] [place] CO2 [Moles/Vol] 25 mmol/L Normal 21-32 [facility] Comment on above: Order Comment: Speci men Type: BLOOD SPECIMEN Ordering Facility: [facility] Address: [address] [place] [address] Performed By: #### 2 4321-2, 5643-2, 4024-6, 3298-7 #### [facility] CLIA [id number] [address] [place], [place] [address] [place] Creatinine [Mass/Vol] 1.08 mg/dL Normal 0.50-1.40 [facility] Comment on above: Order Comment: Speci men Type: BLOOD SPECIMEN Ordering Facility: [facility] Address: [address] [place], [place] [address] Result Comment: Bianka ents receiving either N-Acetylcysteine (NAC) or Metamizole prior to venipuncture, may have falsely depressed results. Performed By: #### 2 4321-2, 5643-2, 4024-6, 3298-7 #### [facility] CLIA [id number] [address] [place], [place] [address] [place] Creatinine and Glomerular filtration rate.predicted panel (S/P/Bld) 78 mL/min/1.73m??? Normal >=60 [facility] Comment on above: Order Comment: Fatmata magallanes Type: BLOOD SPECIMEN Ordering Facility: [facility] Address: [address] [place] [address] Result Comment: Rocio mated Glomerular Filtration Rate [...] #### 2 4321-2, 5643-2, 4024-6, 3298-7 #### [facility] CLIA [id number] [address] [place], [place] [address] [place] Glucose [Mass/Vol] 267 mg/dL High 70-100 [facility] Comment on above: Order Comment: Fatmata magallanes Type: BLOOD SPECIMEN Ordering Facility: [facility] Address: [address] [place] [address] Result Comment: The [place] [employer] (ADA) provides guidance for cutoff [...] Standards of Medical Care in Diabetes 2016, [place] [employer]. Diabetes Care. 2016.39(Suppl 1). Results may be falsely elevated after the administration of Sulfapyridine. Results may be falsely depressed after the administration of Sulfasalazine. Performed By: #### 2 4321-2, 5643-2, 4024-6, 3298-7 #### [facility] CLIA [id number] [address] [place] [address] [place] Potassium [Moles/Vol] Normal [facility] Comment on above: Order Comment: Speci men Type: BLOOD SPECIMEN Ordering Facility: [facility] Address: [address] [place] [address] Result Comment: Unab le to assay due to interference from hemolysis. Suggest reorder as clinically indicated. Performed By: #### 2 4321-2, 5643-2, 4024-6, 3298-7 #### [facility] CLIA [id number] [address] [place] [address] [place] Sodium [Moles/Vol] 138 mmol/L Normal 136-145 [facility] Comment on above: Order Comment: Speci men Type: BLOOD SPECIMEN Ordering Facility: [facility] Address: [address] [place] [address] Performed By: #### 2 4321-2, 5643-2, 4024-6, 3298-7 #### [facility] CLIA [id number] [address] [place] [address] [place] Urea nitrogen [Mass/Vol] 15 mg/dL Normal 7-26 [facility] Comment on above: Order Comment: Speci men Type: BLOOD SPECIMEN Ordering Facility: [facility] Address: [address] [place] [address] Performed By: #### 2 4321-2, 5643-2, 4024-6, 3298-7 #### [facility] CLIA [id number] [address] [place] [address] [place] CBC panel Auto (Bld)on 12-06 Erythrocyte distribution width (RBC) [Ratio] 11.8 % Normal 11.5-15.0 [facility] Comment on above: Order Comment: Speci men Type: BLOOD SPECIMEN Ordering Facility: [facility] Address: [address] [place] [address] Performed By: #### 5 8410-2 #### [facility] CLIA [id number] [address] [place], [place] [address] [place] Hematocrit (Bld) [Volume fraction] 50.8 % Normal 39.0-51.0 [facility] Comment on above: Order Comment: Speci men Type: BLOOD SPECIMEN Ordering Facility: [facility] Address: [address] [place] [address] Performed By: #### 5 8410-2 #### [facility] CLIA [id number] [address] [place] [address] OF [place] Hemoglobin (Bld) [Mass/Vol] 17.0 g/dL Normal 13.0-17.0 [facility] Comment on above: Order Comment: Speci men Type: BLOOD SPECIMEN Ordering Facility: [facility] Address: [address] [place] [address] Performed By: #### 5 8410-2 #### [facility] CLIA [id number] [address] [place] [address] [place] MCH (RBC) [Entitic mass] 28.5 pg Normal 26.0-34.0 [facility] Comment on above: Order Comment: Speci men Type: BLOOD SPECIMEN Ordering Facility: [facility] Address: [address] [place] [address] Performed By: #### 5 8410-2 #### [facility] CLIA [id number] [address] [place] [address] [place] MCHC (RBC) [Mass/Vol] 33.5 g/dL Normal 30.5-36.0 [facility] Comment on above: Order Comment: Speci men Type: BLOOD SPECIMEN Ordering Facility: [facility] Address: [address] [place] [address] Performed By: #### 5 8410-2 #### [facility] CLIA [id number] [address] [place] [address] [place] MCV (RBC) [Entitic vol] 85.2 fL Normal 80.0-100.0 [facility] Comment on above: Order Comment: Speci men Type: BLOOD SPECIMEN Ordering Facility: [facility] Address: [address] [place] [address] Performed By: #### 5 8410-2 #### [facility] CLIA [id number] [address] [place] [address] [place] Nucleated RBC (Bld) [#/Vol] 10*3/uL Normal <0.01 [facility] Comment on above: Order Comment: Speci men Type: BLOOD SPECIMEN Ordering Facility: [facility] Address: [address] [place] [address] Performed By: #### 5 8410-2 #### [facility] CLIA [id number] [address] [place] [address] [place] Platelet mean volume (Bld) [Entitic vol] 11.1 fL Normal 9.0-12.7 [facility] Comment on above: Order Comment: Speci men Type: BLOOD SPECIMEN Ordering Facility: [facility] Address: [address] [place] [address] Performed By: #### 5 8410-2 #### [facility] CLIA [id number] [address] [place] [address] [place] Platelets (Bld) [#/Vol] 204 10*3/uL Normal 150-400 [facility] Comment on above: Order Comment: Speci men Type: BLOOD SPECIMEN Ordering Facility: [facility] Address: [address] [place] [address] Performed By: #### 5 8410-2 #### [facility] CLIA [id number] [address] [place] [address] [place] RBC (Bld) [#/Vol] 5.96 10*6/uL Normal 4.20-6.00 [facility] Comment on above: Order Comment: Speci men Type: BLOOD SPECIMEN Ordering Facility: [facility] Address: [address] [place] [address] Performed By: #### 5 8410-2 #### [facility] CLIA [id number] [address] [place] [address] [place] WBC (Bld) [#/Vol] 6.65 10*3/uL Normal 3.70-11.00 [facility] Comment on above: Order Comment: Speci men Type: BLOOD SPECIMEN Ordering Facility: [facility] Address: [address] [place] [address] Performed By: #### 5 8410-2 #### [facility] CLIA [id number] [address] [place] [address] [place] BRAIN ATTACK WO IVCONon 1 CT BRAIN ATTACK WO IVCON * * *Final Report* * * DATE OF EXAM: Dec 06 2022 5:15PM [facility] 0502 - CT BRAIN ATTACK WO IVCON [...] orbits and extracranial soft tissues are normal. Chalker Soles (topogram) images: No additional findings. IMPRESSION: 1. NO ACUTE INTRACRANIAL PROCESS 2. SEVERE NONSPECIFIC WHITE MATTER CHANGE CRITICAL TEST/RESULTS: Notification initiated at 1720. Communicated with Dr Araiza on 12/06/2022 at 1720 . CR_1 [employer] Liaison Officer: DONTAE Transcribe Date/Time: Dec 06 2022 5:18P Dictated by : LENORA DAUGHERTY MD This examination was interpreted and the report reviewed and electronically signed by: LENORA DAUGHERTY MD on Dec 06 2022 5:22PM EST [id number] CRITICAL!! Invalid Interpretation Code [facility] CTA HEAD W IVCONon 3 CTA HEAD W IVCON * * *Final Report* * * DATE OF EXAM: Dec 06 2022 8:22PM [facility] 0022 - CTA HEAD W IVCON / [...] normal in caliber. origin of the right CERTIFIED WELLNESS PROGRAM COORDINATOR with hypoplastic right P1 segment. Patent left posterior communicating artery. The proximal bilateral programs assistant are patent and normal in caliber. Proximal bilateral SCA and PICA are patent. Dural venous sinuses, major deep and superficial draining veins are patent. Chalker Soles (topogram) images: Unremarkable. IMPRESSION: No proximal large [...] between software and imaging review: Not Applicable. [employer] Liaison Officer: PSCB Transcribe Date/Time: Dec 06 2022 8:37P Dictated by : WM REYEZ MD This examination was interpreted and the report reviewed and electronically signed by: WM REYEZ MD on Dec 06 2022 8:45PM EST [id number] [facility] CTA NECK W IVCONon 3 CTA NECK W IVCON * * *Final Report* * * DATE OF EXAM: Dec 06 2022 8:22PM [facility] 0024 - CTA NECK W IVCON / [...] normal in caliber. origin of the right CERTIFIED WELLNESS PROGRAM COORDINATOR with hypoplastic right P1 segment. Patent left posterior communicating artery. The proximal bilateral programs assistant are patent and normal in caliber. Proximal bilateral SCA and PICA are patent. Dural venous sinuses, major deep and superficial draining veins are patent. Chalker Soles (topogram) images: Unremarkable. IMPRESSION: No proximal large [...] between software and imaging review: Not Applicable. [employer] Liaison Officer: DONTAE Transcribe Date/Time: Dec 06 2022 8:37P Dictated by : WM REYEZ MD This examination was interpreted and the report reviewed and electronically signed by: WM REYEZ MD on Dec 06 2022 8:45PM EST [id number] [facility] ECG COMPLETEon 12-06-2022 ECG COMPLETE Ventricular Rate : 1 02 BPM Atrial Rate : 102 BPM P-R Interval : 150 ms QRS Duration : 78 ms Q-T Interval : 360 ms QTC Calculation(Bazett) : 469 ms Calculated P Stephens : 52 degrees Calculated R Stephens : 44 degrees Calculated T Stephens : 60 degrees Sinus tachycardia Prolonged QT Abnormal ECG No previous ECGs available Confirmed by TIMI TSAI MD ([id number]) on 12/07/2022 5:50:42 PM NAME : DREA COPELAND PID : [id number] : 1960 Gender : Male Race : ORD : [id number] Procedure Date : Dec 06 2022 17:22:37 Edit Date : Dec 07 2022 17:50:45 Diagnosis: Sinus tachycardia Prolonged QT Abnormal ECG No previous ECGs available Confirmed by TIMI TSAI MD ([id number]) on 12/07/2022 5:50:42 PM Test Reason : STAT Location : 0 : ED [id number] Overread By : TIMI TSAI MD Edited By : TIMI TSAI MD Referred By : , Acquired by : [facility] ED NOTEon 12-06-2022 ED NOTE HNO ID: [id number] Author: Ember Alvarado RN Service: ? Author Type: Registered Nurse Type: ED Notes Filed: 12/06/2022 6:06 PM Note Text: Pt requesting to leave, LIP discussed patients risks with both patient and . [facility] ED PROV NOTEon 12-06-2022 ED PROV NOTE HNO ID: [id number] Author: Henrry Montalvo MD Service: Emergency Medicine [...] CT Noncon was ordered. Patient sent to me pending multiple reevaluations and laboratory evaluation. On [...] TIME: 8:53 PM PAGER/CONTACT #: HENRRY MONTALVO 12/06/22 2240 HENRRY MONTALVO 12/06/[address] [facility] ED PROV NOTE HNO ID: [id number] Author: Cheikh Araiza DO Service: ? Author Type: Donation Coordinator [...] would eithe (more content not included)... Normal [facility] Ethanol SerPl-mCncon 023 Ethanol [Mass/Vol] 0.090 gm/dL High <0.010 [facility] Comment on above: Order Comment: Fatmata magallanes Type: BLOOD SPECIMEN Ordering Facility: [facility] Address: [address] [place] [address] Performed By: #### 2 4321-2, 5643-2, 4024-6, 3298-7 #### [facility] CLIA [id number] [address] [place] [address] [place] HIGH SENSITIVITY TROPONIN Io n 12-06-2022 Tropinin I.cardiac panel High sensitivity method 8.1 pg/mL Normal 0.0-54.0 [facility] Comment on above: Order Comment: Fatmata magallanes Type: BLOOD SPECIMEN Ordering Facility: [facility] Address: [address] [place] [address] Result Comment: This assay uses different antibodies than our current assay, and assays, even by the same hammer smith may recognize different regions of the antibody and cannot be used interchangeably. Expect results of this assay to run higher than the previous assay. Performed By: #### H STROP #### [facility] CLIA [id number] [address] [place] [address] [place] POTASSIUM BLDon 12-06-2022 Potassium [Moles/Vol] 4.0 mmol/L Normal 3.5-5.1 [facility] Comment on above: Order Comment: Speci men Type: BLOOD SPECIMENOrdering Facility: [facility] Address: [place] [address] Performed By: #### K 1, 3016-3 ####[facility]ORYCLIA [id number] [place] [address] [place] PT panel Coag (PPP)on 2022 INR Coag (PPP) [Relative time] 1.0 {INR} Normal 0.9-1.3 [facility] Comment on above: Order Comment: Speci men Type: BLOOD SPECIMEN Ordering Facility: [facility] Address: [place] [address] Result Comment: Kylie min K Antagonist (VKA) Therapeutic Range: INR 2 to 3 (Target INR of 2.5) Note: For patients treated with VKA drugs, such as warfarin, the [employer] 2012 Guideline recommends [...] GH, et al. Chest 2012, 141:7S-47S Giles RA et al. [facility] 2017, 70: 252-289 Performed By: #### 3 4528-0, 06168-7 #### [facility] CLIA [id number] [address] [place] [address] [place] PT Coag (PPP) [Time] 10.6 s Normal 9.7-13.0 [facility] Comment on above: Order Comment: Felixi men Type: BLOOD SPECIMEN Ordering Facility: [facility] Address: [place] [address] Performed By: #### 3 4528-0, 16343-4 #### [facility] CLIA [id number] [address] [place] [address] [place] Salicylates SerPl-mCncon Salicylates [Mass/Vol] mg/dL Normal 2.8-20.0 [facility] Comment on above: Order Comment: Speci men Type: BLOOD SPECIMEN Ordering Facility: [facility] Address: [address] [place] [address] Result Comment: Refe rence ranges and high/low indicator flags are provided as general guidelines only. The treating physician must determine appropriate target levels/dosing based on the specific clinical situation. Performed By: #### 2 4321-2, 5643-2, 4024-6, 3298-7 #### [facility] CLIA [id number] [address] [place] [address] [place] TOX SCREEN ROUT URon 023 Amphetamines Confirm (U) [Mass/Vol] Negative Normal Negative [facility] Comment on above: Order Comment: Speci men Type: URINE SPECIMENOrdering Facility: [facility] Address: [address] [place] [address] Result Comment: Cuto ff threshold at 1000 ng/mL. Performed By: #### U TOX2 ####[facility]ORYCLIA [id number] [place] [address] [place] BARBITURATES, URINE Negative Normal Negative [facility] Comment on above: Order Comment: Speci men Type: URINE SPECIMENOrdering Facility: [facility] Address: [address] [place] [address] Result Comment: Cuto ff threshold at 200 ng/mL. Performed By: #### U TOX2 ####[facility]ORYCLIA [id number] [place] [address] [place] BENZODIAZEPINES, UR Negative Normal Negative [facility] Comment on above: Order Comment: Speci men Type: URINE SPECIMENOrdering Facility: [facility] Address: [address] [place] [address] Result Comment: Cuto ff threshold at 200 ng/mL. Performed By: #### U TOX2 ####[facility]ORY[facility]IA [id number] [address] [place] Cannabinoids Screen Ql (U) Negative Normal Negative [facility] Comment on above: Order Comment: Speci men Type: URINE SPECIMENOrdering Facility: [facility] Address: [address] [place] [address] Result Comment: Cuto ff threshold at 50 ng/mL. Performed By: #### U TOX2 ####[facility]ORYCLIA [id number] [place] [address] [place] Cocaine Ql (U) Negative Normal Negative [facility] Comment on above: Order Comment: Speci men Type: URINE SPECIMENOrdering Facility: [facility] Address: [address] [place] [address] Result Comment: Cuto ff threshold at 300 ng/mL. Performed By: #### U TOX2 ####[facility]ORYCLIA [id number] [address] [place] Opiates Screen Ql (U) Negative Normal Negative [facility] Comment on above: Order Comment: Speci men Type: URINE SPECIMENOrdering Facility: [facility] Address: [address] [place] [address] Result Comment: Cuto ff threshold at 300 ng/mL. Performed By: #### U TOX2 ####[facility]ORYCLIA [id number] [place] [address] [place] Phencyclidine Ql (U) Negative Normal Negative [facility] Comment on above: Order Comment: Speci men Type: URINE SPECIMENOrdering Facility: [facility] Address: [address] [place] [address] Result Comment: Cuto ff threshold at 25 ng/mL. Performed By: #### U TOX2 ####[facility]ORYCLIA [id number] [place] [address] [place] TSH SerPl-aCncon 12-06-2022 TSH Qn 1.325 m[IU]/L Normal 0.358-3.74 0 [facility] Comment on above: Order Comment: Speci men Type: BLOOD SPECIMENOrdering Facility: [facility] Address: [address] [place] [address] Result Comment: 3rd generation ultra sensitive TSH. Performed By: #### K 1, 3016-3 ####[facility]ORYCLIA [id number] [address] Urinalysis complete panel (U )on 12-06-2022 Bacteria LM.HPF (Urine sed) [#/Area] None Seen Normal None Seen [facility] Comment on above: Order Comment: Speci men Type: URINE SPECIMENOrdering Facility: [facility] Address: [address] [place] [address] Performed By: #### 2 4356-8 ####[facility]ORYCLIA [id number] [address] [place] Bilirubin Ql (U) Negative Normal Negative [facility] Comment on above: Order Comment: Speci men Type: URINE SPECIMENOrdering Facility: [facility] Address: [address] [place] [address] Performed By: #### 2 4356-8 ####[facility]ORYCLIA [id number] [address] [place] Clarity (Unsp spec) Clear Normal Clear [facility] Comment on above: Order Comment: Speci men Type: URINE SPECIMENOrdering Facility: [facility] Address: [address] [place] [address] Performed By: #### 2 4356-8 ####[facility]ORYCLIA [id number] [address] [place] Color (U) Yellow Normal Yellow [facility] Comment on above: Order Comment: Speci men Type: URINE SPECIMENOrdering Facility: [facility] Address: [address] [place] [address] Performed By: #### 2 4356-8 ####[facility]ORYCLIA [id number] [address] [place] Epithelial cells LM.HPF (Urine sed) [#/Area] Few Normal [facility] Comment on above: Order Comment: Speci men Type: URINE SPECIMENOrdering Facility: [facility] Address: [address] [place] [address] Performed By: #### 2 4356-8 ####[facility]ORYCLIA [id number] [address] [place] Glucose Test strip (U) [Mass/Vol] 3+ Abnormal Negative [facility] Comment on above: Order Comment: Speci men Type: URINE SPECIMENOrdering Facility: [facility] Address: [address] [place] [address] Performed By: #### 2 4356-8 ####[facility]ORYCLIA [id number] [address] STATES OF [facility] Hemoglobin Ql (U) 1+ Abnormal Negative [facility] Comment on above: Order Comment: Speci men Type: URINE SPECIMENOrdering Facility: [facility] Address: [address] [place] [address] Performed By: #### 2 4356-8 ####[facility]ORYCLIA [id number] [place] [address] [place] Hyaline casts (Urine sed) [#/Area] 1-3 /LPF Abnormal 0 /LPF [facility] Comment on above: Order Comment: Speci men Type: URINE SPECIMENOrdering Facility: [facility] Address: [address] [place] [address] Performed By: #### 2 4356-8 ####[facility]ORYCLIA [id number] [address] [place] Ketones Ql (U) Negative Normal Negative [facility] Comment on above: Order Comment: Speci men Type: URINE SPECIMENOrdering Facility: [facility] Address: [address] [place] [address] Performed By: #### 2 4356-8 ####[facility]ORYCLIA [id number] [place] [address] [place] Leukocyte esterase Test strip Ql (U) Negative Normal Negative [facility] Comment on above: Order Comment: Speci men Type: URINE SPECIMENOrdering Facility: [facility] Address: [address] [place] [address] Performed By: #### 2 4356-8 ####[facility]ORYCLIA [id number] [place] [address] [place] Nitrite Ql (U) Negative Normal Negative [facility] Comment on above: Order Comment: Speci men Type: URINE SPECIMENOrdering Facility: [facility] Address: [address] [place] [address] Performed By: #### 2 4356-8 ####[facility]ORYCLIA [id number] [place] [address] [place] pH (U) 5.0 [pH] Normal 5.0-8.0 [facility] Comment on above: Order Comment: Speci men Type: URINE SPECIMENOrdering Facility: [facility] Address: [address] [place] [address] Performed By: #### 2 4356-8 ####[facility]ORYCLIA [id number] [place] [address] [place] Protein (U) [Mass/Vol] 3+ Abnormal Negative [facility] Comment on above: Order Comment: Speci men Type: URINE SPECIMENOrdering Facility: [facility] Address: [address] [place] [address] Performed By: #### 2 4356-8 ####[facility]ORYCLIA [id number] [place] [address] [place] RBC LM.HPF (Urine sed) [#/Area] 0-3 /HPF Normal 0-3 /HPF [facility] Comment on above: Order Comment: Speci men Type: URINE SPECIMENOrdering Facility: [facility] Address: [address] [place] [address] Performed By: #### 2 4356-8 ####[facility]ORYCLIA [id number] [place] [address] [place] Specific gravity (U) [Rel density] 1.011 Normal 1.005-1.03 0 [facility] Comment on above: Order Comment: Speci men Type: URINE SPECIMENOrdering Facility: [facility] Address: [address] [place] [address] Performed By: #### 2 4356-8 ####[facility]ORYCLIA [id number] [address] Urobilinogen Ql (U) Negative Normal Negative [facility] Comment on above: Order Comment: Speci men Type: URINE SPECIMENOrdering Facility: [facility] Address: [address] [place] [address] Performed By: #### 2 4356-8 ####[facility]ORYCLIA [id number] [address] STATES OF [facility] WBC LM.HPF (Urine sed) [#/Area] 0-5 /HPF Normal 0-5 /HPF [facility] Comment on above: Order Comment: Speci men Type: URINE SPECIMENOrdering Facility: [facility] Address: [address] [place] [address] Performed By: #### 2 4356-8 ####[facility]ORYCLIA [id number] [address] [place] aPTT PPPon 12-06-2022 aPTT Coag (PPP) [Time] 26.8 s Normal 23.0-32.4 [facility] Comment on above: Order Comment: Speci men Type: BLOOD SPECIMEN Ordering Facility: [facility] Address: [address] [place] [address] Performed By: #### 3 4528-0, 56902-2 #### [facility] CLIA [id number] STATES OF [facility] Vital Signs Date Time Vital Sign Value Performing Clinician Jerod solis 11-09-2024 09:44-0400 Body temperature 98.9 [degF] Dr. Juan C Barnes MD Work Phone: [facility] 11-09-2024 09:44-0400 Diastolic blood pressure 93 mm[Hg] Dr. Juan C Barnes MD Work Phone: [facility] 11-09-2024 09:44-0400 Heart rate 82 /min Dr. Juan C Barnes MD Work Phone: [facility] 11-09-2024 09:44-0400 Respiratory rate 20 /min Dr. Juan C Barnes MD Work Phone: [facility] 11-09-2024 09:44-0400 SaO2% (BldA) [Mass fraction] 98 % Dr. Juan C Barnes MD Work Phone: [facility] 11-09-2024 09:44-0400 Systolic blood pressure 165 mm[Hg] Dr. Juan C Barnes MD Work Phone: [facility] 07-09-2024 09:04-0400 Body temperature 97.7 [degF] Dr. Juan C Barnes MD Work Phone: [facility] 07-09-2024 09:04-0400 Diastolic blood pressure 89 mm[Hg] Dr. Juan C Barnes MD Work Phone: [facility] 07-09-2024 09:04-0400 Heart rate 76 /min Dr. Juan C Barnes MD Work Phone: [facility] 07-09-2024 09:04-0400 Respiratory rate 15 /min Dr. Juan C Barnes MD Work Phone: [facility] 07-09-2024 09:04-0400 SaO2% (BldA) [Mass fraction] 100 % Dr. Juan C Barnes MD Work Phone: [facility] 07-09-2024 09:04-0400 Systolic blood pressure 153 mm[Hg] Dr. Juan C Barnes MD Work Phone: [facility] 06-24-2023 13:40-0400 Body temperature 97.3 [degF] Dr. Lawrence Skaggs Work Phone: [facility] 06-24-2023 13:40-0400 Diastolic blood pressure 96 mm[Hg] Dr. Lawrence Skaggs Work Phone: 7(646)434-748271 [place] [address] 06-24-2023 13:40-0400 Heart rate 92 /min Dr. Lawrence Skaggs Work Phone: 1(208)898-320271 [place] [address] 06-24-2023 13:40-0400 Respiratory rate 16 /min Dr. Lawrence Skaggs Work Phone: 1(751)556-912871 [place] [address] 06-24-2023 13:40-0400 SaO2% (BldA) [Mass fraction] 100 % Dr. Lawrence Skaggs Work Phone: 0(748)636-012171 [place] [address] 06-24-2023 13:40-0400 Systolic blood pressure 137 mm[Hg] Dr. Lawrence Skaggs Work Phone: 3(028)610-177271 [place] [address] 06-24-2023 11:42-0400 Body height 198.[address] Lawrence Skaggs Work Phone: 8(772)931-332671 [place] [address] 06-24-2023 11:42-0400 Body mass index (BMI) [Ratio] 17.8 kg/m2 Dr. Lawrence Skaggs Work Phone: 1(187)361-747471 [place] [address] 06-24-2023 11:42-0400 Body weight 69.[address] Lawrence Skaggs Work Phone: 2(872)958-677471 [place] [address] 05-15-2023 19:00-0400 Body temperature 98 [degF] Dr. Lawrence Skaggs Work Phone: 1(841)742-575171 [place] [address] 05-15-2023 19:00-0400 Diastolic blood pressure 74 mm[Hg] Dr. Lawrence Skaggs Work Phone: 5(317)836-288771 [place] [address] 05-15-2023 19:00-0400 Heart rate 76 /min Dr. Lawrence Skaggs Work Phone: 0(082)268-881571 [place] [address] 05-15-2023 19:00-0400 Respiratory rate 18 /min Dr. Lawrence Skaggs Work Phone: 1(277)372-676771 [place] [address] 05-15-2023 19:00-0400 SaO2% (BldA) [Mass fraction] 99 % Dr. Lawrence Skaggs Work Phone: 7(810)825-055771 [place] [address] 05-15-2023 19:00-0400 Systolic blood pressure 126 mm[Hg] Dr. Lawrence Skaggs Work Phone: 5(916)462-582171 [place] [address] 05-15-2023 09:12-0400 Body mass index (BMI) [Ratio] 18.7 kg/m2 Dr. Lawrence Skaggs Work Phone: 9(579)789-113571 [place] [address] 05-15-2023 09:12-0400 Body weight 73.[address] Lawrence Skaggs Work Phone: 3(561)105-621171 [place] [address] 05-15-2023 09:10-0400 Body height 198.[address] Lawrence Skaggs Work Phone: 2(487)628-721571 [place] [address] 05-10-2023 12:46-0500 Body height 182.[address] Lawrence Skaggs Work Phone: 0(243)069-666871 [place] [address] 05-10-2023 12:46-0500 Body weight 77.[address] Lawrence Skaggs Work Phone: 3(014)909-467871 [place] [address] 05-10-2023 09:38-0500 Body temperature 98.9 [degF] Dr. Lawrence Skaggs Work Phone: 0(952)955-046171 [place] [address] 05-10-2023 09:38-0500 Diastolic blood pressure 68 mm[Hg] Dr. Lawrence Skaggs Work Phone: 1(899)335-405171 [place] [address] 05-10-2023 09:38-0500 Heart rate 98 /min Dr. Lawrence Skaggs Work Phone: 5(215)893-522771 [place] [address] 05-10-2023 09:38-0500 Respiratory rate 16 /min Dr. Lawrence Skaggs Work Phone: 3(378)186-128671 [place] [address] 05-10-2023 09:38-0500 SaO2% (BldA) [Mass fraction] 95 % Dr. Lawrence Skaggs Work Phone: 0(320)839-503871 [place] [address] 05-10-2023 09:38-0500 Systolic blood pressure 133 mm[Hg] Dr. Lawrence Skaggs Work Phone: [facility] 05-10-2023 05:53-0500 Body mass index (BMI) [Ratio] 23.1 kg/m2 Dr. Lawrence Skaggs Work Phone: [facility] 05-07-2023 18:20-0500 Inhaled oxygen flow rate 4 L/min Dr. Lawrence Skaggs Work Phone: [facility] 05-05-2023 14:19-0500 Body temperature 97.9 [degF] [facility] 05-05-2023 14:19-0500 Diastolic blood pressure 59 mm[Hg] [facility] 05-05-2023 14:19-0500 Heart rate 101 /min [facility] 05-05-2023 14:19-0500 Respiratory rate 34 /min [facility] 05-05-2023 14:19-0500 SaO2% (BldA) [Mass fraction] 99 % [facility] 05-05-2023 14:19-0500 Systolic blood pressure 104 mm[Hg] [facility] 05-05-2023 14:00-0500 Inhaled oxygen flow rate 15 L/min [facility] 05-05-2023 11:50-0500 Body height 182.88 cm [facility] 05-05-2023 11:50-0500 Body mass index (BMI) [Ratio] 22.5 kg/m2 [facility] 05-05-2023 11:50-0500 Body weight 75.3 kg [facility] Encounters Encounter Date Encounter Type Care Provider Facility Start: 11-09-2024 End: 11-09-[address] Juan C Barnes MD Work Phone: -[facility] Start: 11-09-2024 End: 11-09-[address] Werner Mccarty MD -[facility] Work Phone: Start: 09-02-2024 End: 09-02-[address] Juan C Barnes MD Work Phone: [facility] Start: 09-02-2024 End: 09-02-[address] Werner Mccarty MD -[facility] Work Phone: Start: 09-02-2024 End: 09-02-2024 ambulatory [employer] Facility:[facility] Start: 08-18-2024 Non-patient / Non-visit Dr. Zane Wetzel MD -[facility] Start: 08-18-2024 End: 08-18-[address] Juan C Barnes MD Work Phone: [facility] Work Phone: Start: 08-18-2024 End: 08-18-[address] Werner Mccarty MD -[facility] Work Phone: Start: 08-18-2024 End: 08-18-[facility] Start: 07-22-2024 Non-patient / Non-visit Dr. Marky Matamoros MD -[facility] Work Phone: Start: 07-22-2024 ambulatory Juan C Barnes Facility:[facility] Start: 07-22-[address] Dean Mccarty MD -[facility] Work Phone: Start: 07-20-2024 End: 07-20-[address] Juan C Barnes MD Work Phone: [facility] Work Phone: Start: 07-20-2024 End: 07-20-[address] Werner Mccarty MD -[facility] Work Phone: Start: 07-20-2024 End: 07-20-20[address] [employer] Facility:[facility] Start: 07-09-2024 End: 07-09-[address] Werner Mccarty MD -[facility] Work Phone: Start: 07-09-2024 End: 07-09-2024 ambulatory Juan C Barnes Facility:[facility] Start: 11-20-2023 ambulatory Juan C Barnes Facility:[facility] Start: 11-20-2023 End: 11-20-2023 ambulatory Juan C Barnes Facility:[facility] Start: 10-21-2023 End: 10-21-2023 ambulatory Constance Fitzgerald Facility:[facility] Start: 06-24-2023 Non-patient / Non-visit Dr. Lawrence Skaggs Work Phone: [facility] Start: 06-24-2023 End: 06-24-2023 Admission to same day surgery center Dr. Lawrence Skaggs Work Phone: [facility] Work Phone: Start: 06-24-2023 End: 06-24-[address] Lawrence Skaggs Work Phone: [facility] Work Phone: Start: 06-07-2023 End: 06-07-[address] Lawrence Skaggs Work Phone: [facility] Work Phone: Start: 05-21-[address] Lawrence Skaggs Work Phone: [facility] Start: 05-15-2023 End: 05-15-2023 Emergency department patient visit Dr. Lawrence Skaggs Work Phone: [facility] Work Phone: Start: 05-10-2023 Non-patient / Non-visit Dr. Lawrence Skaggs Work Phone: [facility] Work Phone: Start: 05-09-2023 Non-patient / Non-visit Dr. Lawrence Skaggs Work Phone: [facility] Work Phone: Start: 05-08-2023 Non-patient / Non-visit Dr. Lawrence Skaggs Work Phone: [facility] Start: 05-08-2023 Non-patient / Non-visit Dr. Lawrence Skaggs Work Phone: [facility] Work Phone: Start: 05-07-2023 Non-patient / Non-visit Dr. Lawrence Skaggs Work Phone: [facility] Start: 05-07-2023 Non-patient / Non-visit Dr. Lawrence Skaggs Work Phone: [facility] Work Phone: Start: 05-06-2023 Non-patient / Non-visit Dr. Lawrence Skaggs Work Phone: [facility] Start: 05-06-2023 Non-patient / Non-visit Dr. Lawrence Skaggs Work Phone: [facility] Work Phone: Start: 05-06-2023 Non-patient / Non-visit Dr. Lawrence Skaggs Work Phone: [facility] Start: 05-05-2023 End: 05-10-2023 [facility]: Start: 12-09-2022 End: 12-10-2022 Evaluation and management of inpatient [facility] Facility:[id number] Start: 12-06-2022 End: 12-07-2022 Emergency department patient visit [facility] Facility:[id number] Procedures Date Procedure Procedure Detail Performing Clinician Start: 09-02-2024 MRI of brain with contrast Dr. Juan C gilliam MD Work Phone: Start: 07-20-[address] Juan C Barnes MD Work Phone: Comment on above: Performed at: [address] [id number] Director: Jorge Calderon PhD, Phone: [phone] Start: 07-20-2024 Antibody to centromere measurement Dr. [...] Work Phone: Comment on above: Result: c.1601G>A (p.Kto862Yen) - Not De tectedThis result is not associated with an increased risk for venousthromboembolism. See Additional Clinical Information andComments.Additional Clinical Information: Venous thromboembolism is a multifactorial diseaseinfluenced by genetic, environmental, and circumstantialrisk factors. The c.1601G>A (p. Cxw904Pep) variant in theF5 gene, commonly referred to [...] F2 c.*97G>Avariant and Factor V Leiden (PMID: 71057790). Additionalrisk factors include but are not limited [...] for health careproviders to discuss results at [phone] (7508).Test Details: Variant Analyzed: c.1601G>A (p. Ikm164Wmc), referredto as Factor V LeidenMethods/Limitations: DNA analysis [...] was developed and its performancecharacteristics determined by [employer]. It has not beencleared or approved by the Food and Drug Administration.References: Dylan S, Zeny AK, Randle R, Gerson WW, Miles JH;[facility] Professional Practice and Guidelines Committee.Addendum: [employer] consensusstatement on factor V Leiden mutation testing. Ilana Med.2020May 06. doi: 10.1038/a20527-461-76781-q. PMID:94889201. Benedicto PEREZ. Factor V Leiden Thrombophilia. 1998July 15(Updated 2017Mar 07). In: Steve REDDY, Bobbi HH, Jared RA,et al., editors. Thien(Aziza) (Internet). Echo (MS):[facility], Echo; 4282-2856. Availablefrom: https://www.ncbi.nlm.nih.gov/books/BQV6546/ Reece S, Zeny AK, Rickey X, Aime B, Diana EB, Ana P,Jass CS; [facility] Laboratory Roof Bolter Operator Committee.Venous thromboembolism laboratory testing (factor V Leidenand factor II c. *97G>A), 2018 update: a technical standardof the [employer] and Genomics([facility]). Ilana Med. 2018 Feb;20(12): 3783-5757. doi:10.1038/r72069-570-2302-g. Epub 2017Dec 06. PMID: 97074493. Start: 07-20-2024 Folic acid measurement, RBC Dr. [...] C Barnes MD Work Phone: Start: 07-20-2024 SUPERINTENDENT MEASUREMENT antibody measurement Dr. Juan C mares MD [...] and IgG and IgM panel - Serum [facility] Start: 07-20-2024 Complement C3 [Mass/volume] in Serum or Plasma [facility] Start: 07-20-2024 Complement C4 [Mass/volume] in Serum or Plasma [facility] Start: 07-20-2024 Complement total hemolytic CH50 [Units/volume] in Serum or Plasma [facility] Start: 07-20-2024 Cytoplasmic ANCA Screen [facility] Start: 07-20-2024 Factor V Leiden genotype [facility] Start: 07-20-2024 Folic acid measurement, RBC [facility] Start: 07-20-2024 Lupus anticoagulant assay [facility] Start: 07-20-2024 Protein C [Units/volume] in Platelet poor plasma by Coagulation assay [facility] Start: 07-20-2024 Protein C Ag actual/normal in Platelet poor plasma by Immunoassay [facility] Start: 07-20-2024 Protein S assay [facility] Start: 07-20-2024 Protein S function estimate [facility] Start: 07-20-2024 Targeted analysis for gene mutation [facility] Start: 07-20-2024 Thiamine measurement [facility] Start: 07-20-2024 [facility] Start: 07-20-2024 Vitamin B6 measurement [facility] Start: 06-24-2023 Patient discharge [facility] Start: 05-15-2023 [facility] Start: 05-15-2023 Insj non-ndwellg bladder catheter INSERT BLADDER CATHETER [facility] Start: 05-13-2023 Blood chemistry [facility] Start: 05-13-2023 Complete blood count [facility] Start: 05-12-2023 Blood chemistry [facility] Start: 05-12-2023 Complete blood count [facility] Start: 05-11-2023 Blood chemistry [facility] Start: 05-11-2023 Complete blood count [facility] Start: 05-10-2023 Patient discharge [facility] Start: 05-09-2023 Removal of urinary catheter [facility] Start: 05-08-2023 [facility] Start: 05-07-2023 Application of intermittent pneumatic compression device [facility] Start: 05-06-2023 End: 05-07-2023 [facility] Start: 05-06-2023 Care planning and problem solving actions [facility] Start: 05-06-2023 Care regimes management [facility] Start: 05-06-2023 Notification of physician [facility] Start: 05-05-2023 Referral to gastroenterology service [facility] Start: 05-05-2023 Speech therapy assessment [facility] Start: 05-05-2023 Following clinical pathway protocol [facility] Start: 05-05-2023 Assessment of risk of venous thromboembolism [facility] Start: 05-05-2023 Bedrest [facility] Start: 05-05-2023 Insertion of catheter into peripheral vein [facility] Start: 05-05-2023 Measuring intake and output [facility] Start: 05-05-2023 Providing care according to standard [facility] Start: 05-05-2023 Referral to occupational therapist [facility] Start: 05-05-2023 Referral to service [facility] Start: 05-05-2023 Vital signs measurements [facility] Start: 05-05-2023 [facility] Start: 05-05-2023 Consultation [facility] Start: 05-05-2023 Bacteria identified in Blood by Culture Blood Culture [facility] Start: 05-05-2023 Bacteria identified in Urine by Culture [facility] Start: 05-05-2023 Verification routine [facility] Start: 05-05-2023 Admission procedure [facility] Start: 05-05-2023 Hospital admission, emergency, from emergency room, medical nature [facility] Start: 05-05-2023 End: 05-06-2023 [facility] Start: 05-05-2023 End: 05-05-2023 Blood culture [facility] Start: 05-05-2023 Inhalation therapy procedure [facility] Start: 05-05-2023 Patient referral to dietitian [facility] Antibody to lupus La protein measurement [facility] Antibody to SS-A measurement [facility] Antithrombin III assay [facility] Antithrombin III ass ay, functional [facility] Blood ammonia measurement [facility] Cardiac event recording [facility] Cardiolipin IgG Ab [Units/volume] in Serum or Plasma [facility] Cardiolipin IgM Ab [Units/volume] in Serum or Plasma [facility] Complement C3 [Mass/ volume] in Serum or Plasma [facility] DNA double strand Ab [Units/volume] in Serum [facility] F5 gene mutations fo und [Identifier] in Blood or Tissue by Molecular genetics method Nominal [facility] Hematocrit [Volume Fraction] of Blood [facility] IgA anticardiolipin level [facility] Lupus anticoagulant screening test [facility] MR Brain WO and W co ntrast IV [facility] Partial thromboplast in time ratio [facility] Patient Education ED Diabetic Hyperglycemia ED Vomiting (Adult) [facility] Work Phone: Patient referral [facility] Work Phone: Procedure [facility] Protein S Free Ag actual/normal in Platelet poor plasma by Immunoassay [facility] Protein S, functional assay [facility] Radionuclide gastric emptying study [facility] Thrombin time [facility] US Carotid arteries [facility] US Heart [facility] Vitamin B6 measurement [facility] Payers Date Payer Category Payer Self-pay 2023 Unknown [id number] 2018 Unknown [id number] Unknown [id number] 2.16.8 [id number] Unknown [id number] 2.16.8 [id number] Unknown [id number] 2.16.8 [id number] Unknown [id number] 2.16.8 [id number] Unknown [id number] 2.16.8 [id number] Unknown [id number] 2.16.8 [id number] Unknown [id number] 2.16.8 [id number] Unknown [id number] 2.16.8 [id number] Unknown [id number] 2.16.8 [id number] Unknown [id number] 2.16.8 [id number] Social History Date Type Detail Facility Start: 05-05-2023 End: 06-19-2023 Tobacco smoking status DCIS Unknown if ever smoked [facility] Start: 1960 Sex Assigned At Male [facility] Start: 11-19-2023 End: 11-09-2024 Tobacco smoking status NHIS Ex-smoker (finding) [facility] Medical Equipment Procedure Code Equipment Code Equipment Origin al Text Equipment Identifier Dates EGD, with monitored anesthesia care Ligation clip, metallic [id number] FDA Start: 08-12-2023 Goals Date Patient Goal Desired Activity /State Functional Status Date Assessment Result Facility 05-10-2023 Functional status Bedrest [facility] Work Phone: Mental Status Date Assessment Result Facility 06-24-2023 Cognitive function Light Pain [facility] Work Phone: 06-24-2023 Cognitive function Patient Orientation Pe rson [facility] Work Phone: 05-10-2023 Cognitive function Voice/Name [facility] Work Phone: Clinical Notes 12-09-2022 to 07-09-2024 Note Date & Type Note Facility 07-09-2024 Evaluation note Diagnosis Onset Date Resolution Cerebrovascular disease acute M 2024 9:02am Hyperlipidemia acute July 09, 2 025 9:02am Vascular dementia acute July 9:02am [facility] Work Phone: 1(491) 460-716309-18-2024 [facility] Medical Records Department [address] [place] [address] History Physical Exam 11/20/23928 MR#: [id number] Acct: [id number] Name: DREA COPELAND Rep #: [id number] : 1960 63 From: Ryan Friend DO PCP: Dr. Juan C Barnes MD Status:REG [facility] Location: [place] [address] History and Physical Date of Admission: 11/20/23 DREA COPELAND, is a 63 M who presents to the office today for HFU. *BGI established via [facility] hospitalization 3.05.25-05.10.23. Presented with SOB per pneumonia. GI consulted for emesis, aspiration pneumonia and dysphagia. EGD 05.07.2324 Grade D erosive esophagitis with bleeding. Increased PPI to BID. [facility] ER 05.15.23 presented with nausea and vomiting. [...] in the first portion of the duodenum. [facility] ED 6.10.25 - 08.18.23 GI bleed - blood in [...] a heater probe. Clip was placed. 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 OV 10.21.23 Patient has been doing well. [...] no clinical changes since date of exam. 11/20/23 0929 Cosigner Signature (if applicable): CC: Dr. Juan C Barnes MD; Ryan Larios DO [facility]-2024 History and physical note Author Ryan Larios [facility] June 24, 2023 11:29am Note Date/Time June 24, 2023 11: 29am [facility] Medical Records Department [address] [place] [address] History & Physical Exam 06/24/23 1129 MR#: [id number] Acct: [id number] Name: DREA COPELAND Rep #:[id number] : 1960 63 From: Ryan Friend DO PCP: Dr. Juan C Barnes MD Status:REG S DC Location: [place] [address] History and Physical Date of Admission: 06/24/23 DREA COPELAND, is a 63 M who presents to the office today for HFU. BGI established via [facility] hospitalization 3.05.25-05.10.23. Presented with SOB per pneumonia. GI consulted for emesis, aspiration pneumonia and dysphagia. EGD .07.2524 Grade D erosive esophagitis with bleeding. Increased PPI to BID. [facility] ER 05.15.23 presented with nausea and vomiting. [...] Appearance: average body habitus and well nourished HENMT Head: normal to inspection Ears: hearing [...] Affect: normal affect Quality Reporting Tobacco Screening ([facility] 138) Smoking Status: Former smoker Assessment [...] no clinicalchanges since date of exam. 06/24/23 1129 <Electronically signed by Ryan Larios DO> Cosigner Signature (if applicable): CC: Dr. Juan C Barnes MD; Ryan Larios DO~ Signed [facility] Work Phone: 1(556) 335-142004-22-2024 [facility] 06-24-2023 Procedure [facility]03-13-2024 Discharge summary Author Venancio Boswell [facility] May 15, 2023 4:21pm Note Date/Time May 15, 2023 9:4 7am [facility] Medical Records Department [address] [place] [address] Emergency Department Summary 05/15/23 MR#: [id number] Acct: [id number] Name: DREA COPELAND Rep #:[id number] : 1960 63 From: Venancio Boswell MD PCP: Dr. Juan C Barnes MD Status:REG E R Location: ED HPI History of Present Illness Chief Complaint: Nausea/Vomiting Informant: patient and parent Onset/Context/Timing Onset: Today Context: Gradual Onset Timing: Continuous Current Severity: Mild Maximum Severity: Mild Narrative Narrative: 63-year-old male currently in resident of the longterm [facility]. Had a large stroke with right-sided hemiparalysis in December. Was here than [facility] in the MD. He then was readmitted and discharged a week ago for pneumonia and dehydration. He does have a history of diabetes and hypertension also. Reportedly had nausea and vomiting today. Patient is a limited informant. His parents have arrived while was doing my exam. I spoken with them. Prior similar symptoms: Yes Recent Illness/Hospital[facility]: [facility] Medical History Alcohol abuse, uncomplicated Cerebral infarction [...] the bed. 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 Call [facility] ([phone]) or report to the closest Emergency Room. Call 911 if necessary. 05/15/23 1621 <Electronically signed by Venancio Boswell MD> Cosigner Signature (if applicable): CC: Dr. Juan C Barnes MD ~ Signed [facility] Work Phone: 1(572) 601-614703-08-2024 Consult note Author Vic Leon [facility] May 10, 2023 2:53pm Note Date/Time May 10, 2023 2:53 pm [facility] Medical Records Department [address] [place] [address] Counseling Note - Pharmacy 05/10/23 1453 MR#: [id number] Acct: [id number] Name: DREA COPELAND Rep #:[id number] : 1960 63 From: Vic Leon PCP: KATIE Jiménez Status :ADM IN Y Location: [place] [address] Pharmacy [place] [facility] Service has performed discharge [...] mg PO BID #0 tabs 05/10/23 05/10/23 8278 <Electronically signed by Vic robles> Date _ Vic Lara Signature (if applicable): Date CC: ~ Signed [facility] Work Phone: 1(757) 197-421303-08-2024 Discharge summary Author Roverto Zavala [facility] May 10, 2023 2:11pm Note Date/Time May 10, 2023 2:03 pm [facility] Medical Records Department [address] [place] [address] Instructions for Home/Discharge Instructions 05/10/23 1402 MR#: [id number] Acct: [id number] Name: DREA COPELAND Rep #:[id number] : 1960 63 From: Roverto pérez DO [...] in before D/C Order can be placed): Penitentiary Facility 05/10/23 1411<Electronically signed by Roverto Zavala DO>Roverto Zavala DO CC: STACEY-Shiloh Monte; Dr. Abril Barrera MD ~ Signed [facility] Work Phone: 1(503) 880-330903-08-2024 Discharge summary Author Roverto Zavala [facility] May 10, 2023 6:04pm Note Date/Time May 10, 2023 2:11 pm [facility] Medical Records Department [address] [place] [address] Discharge Summary 05/10/23 1411 MR#: [id number] Acct: [id number] Name: DREA COPELAND Rep #:[id number] : 1960 63 From: Roverto pérez DO PCP: KATIE Jiménez Status :ADM IN Location: [place] [address] Providers Date of Admission: 05/05/23 Date of Discharge: 05/10/23 Primary Care Physician: KATIE Jiménez Consultations 05/05/23 14:17 Consult: Roaster Operator / Pulmonary Medicine Routine Consulting Provider: Intensivists/Pulmonary Med Reason for Consult: acute hypoxic respiratory failure EMERGENT Consult: No Notified: Yes Date Notified: 05/05/23 Time Notified: 14:17 Method of Notification: Notified TELE-ICU 05/05/23 18:53 Consult: Gastroenterology Routine Consulting Provider: [facility] Reason for Consult: GI Bleed EMERGENT Consult: No Notified: Yes Date Notified: 05/05/23 Time Notified: [...] is a 63-year-old male who presented to [facility] ED on 05/05/2023 with shortness of [...] produce sputum culture. Blood cultures negative. ? Roaster Operator followed. Stable on room air on 05/05, [...] in before D/C Order can be placed): Penitentiary Facility Charges/Coding Visit Charges Inpatient E&M: 14900 Disch Hosp >30min 05/10/23 1804 <Electronically signed by Roverto Zavala DO> Cosigner Signature (if applicable): CC: KATIE Monte; Dr. Roverto Zavala DO~ Signed [facility] Work Phone: 1(851) 249-383303-08-2024 Discharge summary Author Roverto Zavala [facility] May 10, 2023 2:10pm Note Date/Time May 10, 2023 2:10 pm [facility] Medical Records Department [address] [place] [address] Transfer to [facility] MR#: [id number] Acct: [id number] Name: DREA COPELAND Rep #:[id number] : 1960 63 From: Roverto pérez DO PCP: KATIE Jiménez Status :ADM IN Certification of patient admission REQUIRED AT TIME OF ADMISSION. I CERTIFY THAT POST-HOSPITAL ECF SERVICES ARE REQUIRED TO BE GIVEN ON AN IN-PATIENT BASIS BECAUSE OF THE ABOVE NAMED PATIENT'S NEED FOR FCI CARE ON A CONTINUING BASIS FOR THE [...] is a 63-year-old male who presented to [facility] ED on 05/05/2023 with shortness of [...] produce sputum culture. Blood cultures negative. ? Roaster Operator followed. Stable on room air on 05/05, [...] regular diet as tolerated with textures/consistency per PATIENT CARRIER. Will adjust diet/Enteral nutrition support as indicated; [...] Staff - Active Staff] - Maddy Monte, VENETIAN BLIND CLEANER-C [Primary Care Provider] - Disposition Disposition (needs filled in before D/C Order can be placed): Penitentiary Facility Charges/Coding Visit Charges Inpatient E&M: 69832 Disch Hosp >30min 05/10/23 1410 <Electronically signed by Roverto Zavala DO> Cosigner Signature (if applicable): CC: KATIE Monte; Dr. Abril Barrera MD ~ [facility] Work Phone: 1(790) 697-829203-08-2024 Consult note Author Elliot Walker [facility] May 10, 2023 3:07am Note Date/Time May 10, 2023 3:07 am [facility] Medical Records Department [address] [place] [address] Pharmacokinetic/Renal -Consult 05/10/23 0306 MR#: [id number] Acct: [id number] Name: DREA COPELAND Rep #:[id number] : 1960 63 From: Elliot Cagle od PCP: KATIE Jiménez Status :ADM IN Y Location: [place] [address] Consult Antibiotic Management Pharmacy has been consulted [...] signed by Elliot palacios> Date _ Elliot Lockeigndayanara Signature (if applicable): Date CC: ~ Signed [facility] Work Phone: 1(221) 359-173203-07-2024 Progress note Author Roverto [facility] May 09, 2023 5:14pm Note Date/Time May 09, 2023 3:14 pm [facility] Medical Records Department [address] [place] [address] Progress Note - Hospitalist 05/09/23 1514 MR#: [id number] Acct: [id number] Name: DREA COPELAND Rep #:[id number] : 1960 63 From: Roverto Drew dayanara DO PCP: KATIE Jiménez Status :ADM IN Location: [place] [address] Reason for Visit Reason for Visit: Diagnoses [...] is a 63-year-old male who presented to [facility] ED on 06/01/2023 with shortness of [...] to produce sputum culture. Blood culturespending. ? Roaster Operator followed. Stable on room air on 05/05, [...] 35 minutes. Charges/Coding Visit Charges Inpatient E&M: 41770 Subs Hosp L2 05/09/23 1714 <Electronically signed by Roverto Zvaala DO> Cosigner Signature (if applicable): CC: ~ Signed [facility] Work Phone: 1(985) 370-987803-06-2024 Progress note Author Ryan Larios [facility] May 08, 2023 7:35pm Note Date/Time May 08, 2023 7:34 pm [facility] Medical Records Department [address] [place] [address] Progress Note - GI 05/08/231931 MR#: [id number] Acct: [id number] Name: DREA COPELAND Rep #:[id number] : 1960 63 From: Ryan Larios DO PCP: KATIE Jiménez Status :ADM IN Location: [place] [address] Subjective Subjective Patient underwent an upper endoscopy [...] 05/08/23 16:00 05/08/23 16:00 05/08/23 16:00 05/08/23 16:00 05/08/23 16:00 05/08/23 16:00 05/07/23 18:20 Oxygen Flow Rate (L/min) 4 [...] 24.7 H, Glucose 219 H, Calcium 8.5 03/06/24 11:58: POC Glucose 226 H 05/08/23 14:00: [...] nondistended bleeding, infection, sepsis, perforation, 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 He will have an ASA [...] via PEG Charges/Coding Visit Charges Inpatient E&M: 02074 [facility] Hosp 05/08/231934 <Electronically signed by Ryan Friend DO> Cosigner Signature (if applicable): CC: ~ Signed [facility] Work Phone: 1(300) 601-495903-06-2024 Progress note Author Roverto Zavala [facility] May 08, 2023 3:37pm Note Date/Time May 08, 2023 1:22 pm [facility] Medical Records Department [address] [place] [address] Progress Note - Hospitalist 05/08/23 1322 MR#: [id number] Acct: [id number] Name: DREA COPELAND Rep #:[id number] : 1960 63 From: Roverto pérez DO PCP: KATIE Jiménez Status :ADM IN Location: [place] [address] Reason for Visit Reason for Visit: Diagnoses [...] 05/07/23 05/08/23 23:59 23:59 23:59 Intake Total 9.66 / 2048.66 1848.00 / 1848.00 1570.17 / 1570.17 Output [...] is a 63-year-old male who presented to [facility] ED on 06/01/2023 with shortness of [...] produce sputum culture. Blood cultures pending. ? Roaster Operator followed. Stable on room air on 05/05, [...] stroke in 12/2022. Has been residing at [facility] nurse facility since then. Has PEG tube [...] 35 minutes. Charges/Coding Visit Charges Inpatient E&M: 55327 Subs Hosp L2 05/08/23 1535 <Electronically signed by Roverto Zavala DO> Cosigner Signature (if applicable): CC: ~ Signed [facility] [facility] Work Phone: 1(369) 946-347203-06-2024 Procedure [facility] 05-07-2023 Consult note Author Ryan Larios [facility] May 07, 2023 6:39pm Note Date/Time May 07, 2023 6:34 pm [facility] Medical Records Department [address] [place] [address] Consultation - GI 05/06/23 1834 MR#: [id number] Acct: [id number] Name: DREA COPELAND Rep #:[id number] : 1960 63 From: Ryan Larios DO PCP: KATIE Jiménez Status :ADM IN Location: [place] [address] HPI Consult Data Date of Consult: 05/06/23 HPI Narrative Reason for Consultation: GI bleed HPI Narrative: DREA COPELAND, is a 63 M who presents via the ED on 05/05/2023 with a PMH as outlined with a complaint of shortness of breath. He was brought from his detention facility. He was noted to be short of breath and somnolent in his SNF. Patient was alert but could not give much of a history. Vitals in the ED were BP of 94/60, RI of 102, RR of 25 and oxygen [...] most history is obtained from the chart. [facility] Medical History (Updated 05/06/23 @ 15:[address] Roverto Zavala, DO) Alcohol abuse, uncomplicated Cerebral infarction due [...] nondistended bleeding, infection, sepsis, perforation, 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 He will have an ASA [...] full code. Charges/Coding Visit Charges Inpatient E&M: 54052 Init Hosp L3 05/07/23 1839 <Electronically signed by Ryan Friend > Cosigner Signature (if applicable): CC: KATIE Monte; Dr. Parish Sanchez MD; Dr. Brain Franks MD; Dr. Rafael Mahan DO; Dr. Vinnie Castillo MD; Dr. Max Mata MD; Dr. Germania Moore MD; Dr. López Pena MD; Dr. Abril Barrera MD; Dr. Michael Mansfield MD; Dr. Augie Davila MD; Dr. Jd Gonzalez MD; Dr. Vaughn Arnold MD;Dr. Elvira Jones MD~ Signed [facility] Work Phone: 1(944) 288-628303-05-2024 Procedure [facility] 05-07-2023 Procedure [facility]03-05-2024 Progress note Author Roverto Zavala [facility] May 07, 2023 1:35pm Note Date/Time May 07, 2023 10:1 3am [facility] Medical Records Department [address] [place] [address] Progress Note - Hospitalist 05/07/23 1013 MR#: [id number] Acct: [id number] Name: DREA COPELAND Rep #:[id number] : 1960 63 From: Roverto pérez DO PCP: KATIE Jiménez Status :ADM IN Location: [place] [address] Reason for Visit Reason for Visit: Diagnoses [...] is a 63-year-old male who presented to [facility] ED on 06/01/2023 with shortness of [...] produce sputum culture. Blood cultures pending. ? Roaster Operator followed. Stable on room air on 05/05, [...] 35 minutes. Charges/Coding Visit Charges Inpatient E&M: 14664 Subs Hosp L2 05/07/23 8878 <Electronically signed by Roverto Zavala DO> Cosigner Signature (if applicable): CC: ~ Signed [facility] Work Phone: 1(226) 278-968003-05-2024 Consult note Author Jonathan Regan [facility] May 07, 2023 2:19am Note Date/Time May 07, 2023 2:19 am [facility] Medical Records Department [address] [place], [place] [address] [address] Pharmacokinetic/Renal -Consult 05/07/23 0216 MR#: [id number] Acct: [id number] Name: DREA COPELAND Rep #:[id number] : 1960 63 From: Jonathan Regan PCP: KATIE Jiménez Status :ADM IN Location: [place] [address] Consult [facility] has been consulted [...] Signature (if applicable): Date CC: ~ Signed [facility] Work Phone: 1(142) 314-725603-04-2024 Progress note Author Roverto Zavala [facility] May 06, 2023 3:59pm Note Date/Time May 06, 2023 1:05 pm [facility] Medical Records Department [address] [place] [address] Progress Note - Hospitalist 05/06/23 1303 MR#: [id number] Acct: [id number] Name: DREA COPELAND Rep #:[id number] : 1960 63 From: Roverto pérez DO PCP: Maddy Monte NP-C Status :ADM IN Location: ICU ICU02-1 Reason [...] Clarity Cloudy, Urine pH 6.5, Ur Specific [place] 1.015, Urine Protein 100 H, Urine Glucose [...] (Auto) 71.9 H, Lymph % (Auto) 22.3, [place] % (Auto) 4.9, Eos % (Auto) 0.2, [...] intracranial abnormality. Chronic microvascular changes. Electronically Signed: Circket Lancaster MD at 13:36 EST , Chest [...] is a 63-year-old male who presented to [facility] ED on 06/01/2023 with shortness of [...] produce sputum culture. Blood cultures pending. ? Roaster Operator following. Stable on room air on 05/05, [...] 35 minutes. Charges/Coding Visit Charges Inpatient E&M: 43491 Subs Hosp L2 05/06/23 1559 <Electronically signed by Roverto Zavala DO> Cosigner Signature (if applicable): CC: ~ Signed [facility] Work Phone: 1(830) 281-487603-04-2024 Progress note Author Rafael Mahan [facility] May 06, 2023 9:44am Note Date/Time May 06, 2023 7:20 am [facility] Medical Records Department [address] [place] [address] Progress Note - Roaster Operator 05/06/23 0718 MR#: [id number] Acct: [id number] Name: DREA COPELAND Rep #:[id number] : 1960 63 From: Rafael Mahan DO PCP: KATIE Jiménez Status :ADM IN [...] for now. This note was generated with Agilyx dictation software. It may contain incorrectwords, spelling, [...] was admitted yesterday after presenting from his detention facility with shortness of breath. There is [...] 77.9 H, Lymph % (Auto) 13.0 L, [place] % (Auto) 8.2, Eos % (Auto) 0.1, [...] Clarity Cloudy, Urine pH 6.5, Ur Specific [place] 1.015, Urine Protein 100 H, Urine Glucose [...] (Auto) 71.9 H, Lymph % (Auto) 22.3, [place] % (Auto) 4.9, Eos % (Auto) 0.2, [...] 13:36 EST Reading Location ID and State: [facility] / MD Tel , Service support , Chest X-Ray 05/05/23 12:20 IMPRESSION: Right lower lobe pneumonia. Question small left lower lobe infiltrate. Electronically Signed: Cricket Lancaster MD at 12:51 EST Reading Location ID and State: [facility] / [place] Tel , Service support , Chest CT 05/06/23 00:04 IMPRESSION: Dense [...] flat affect Charges/Coding Visit Charges Inpatient E&M: 45912 Subs Hosp L3 05/06/23 0944 <Electronically signed by Rafael Mahan DO> Cosigner Signature (if applicable): CC: ~ Signed [facility] Work Phone: 1(374) 490-370503-03-2024 Discharge summary Author Lawrence Skaggs [facility] May 05, 2023 8:31pm Note Date/Time May 05, 2023 12:1 6pm [facility] Medical Records Department [address] [facility] [place] [address] Emergency Department Summary 05/05/23 MR#: [id number] Acct: [id number] Name: DREA COPELAND Rep #:[id number] : 1960 63 From: Lawrence Morrison PCP: KATIE Jiménez Status :ADM IN Location: ICU ICU02-1 HPI History of Present Illness Chief Complaint: Shortness of Breath PFSH [facility] Medical History (Updated 05/05/23 @ 16:22 by [...] High Flow Oxygen Flow Rate (L/min) 15 MDM [facility] MDM Narrative Medical decision making narrative: [...] bruit : No CVAT rectal: Performed with hearing aid assistant Yarely DINAA revealed dark stool. Sent for Hemoccult Extremities: No edema Neuro: No focal neurological deficits, cranial nerves II through XII intact, 5/5strength in all extremities. Intact sensation to light touch in all extremities,2+ reflexes bilateral patella tendons. Normal gait. No ataxia. Skin: No rash or lesions noted MEDICAL DECISION MAKING: Chief Complaint: AMS External records reviewed: No records noted in [employer] Factors affecting care: CVA, right hemiplegia, type [...] to ICU This note was generated with Agilyx dictation software. It may contain incorrectwords, spelling, [...] 77.9 H Lymph % (Auto) 13.0 L [place] % (Auto) 8.2 Eos % (Auto) 0.1 [...] Clarity Cloudy Urine pH 6.5 Ur Specific [place] 1.015 Urine Protein 100 H Urine Glucose [...] respiratory failure Disposition Disposition: Acute Care Hospital [facility] Discharge Date/Time: 05/05/23 14:26 What to do if you have Problems For any increased pain, shortness of breath, bleeding, nausea or vomiting, chestpain, or any unexpected problems, contact your Primary Care Provider. Call [facility] ([phone]) or report to the closest Emergency Room. Call 911 if necessary. 05/05/232030 <Electronically signed by Lawrence Skaggs DO> Cosigner Signature (if applicable): CC: KATIE Monte ~ Signed [facility] Work Phone: 1(679) 401-598503-03-2024 Consult note Author Jd Gonzalez [facility] May 05, 2023 4:49pm Note Date/Time May 05, 2023 3:37 pm [facility] Medical Records Department [address] [place] [address] Consultation - Roaster Operator 05/05/23 1534 MR#: [id number] Acct: [id number] Name: DREA COPELAND Rep #:[id number] : 1960 63 From: Jd Gonzalez MD PCP: KATIE Jiménez Status :ADM IN Location: ICU ICU02-1 HPI Consult Data Date of Consult: 05/05/23 HPI Narrative HPI Narrative: 63yo M w/ CVA 12/2022 c/b R sided hemiplegia, DM, h/o EtOH/tobacco abuse, anemia, dysphagia s/p G-tube who was admitted for respiratory failure. He is unable to provide much history. Per his sister he was apparently stable when shesaw him yesterday at longterm, however earlier today he apparently developedworsening lethargy [...] smoke tobacco until he had his CVA. [facility] Medical History (Updated 05/05/23 @ 16:22 by [...] 05/05/23 23:59 11:59 23:59 Intake Total 2099 / 2099 Balance 2099 I&O: Total Stay 05/05/23 11:49 thru 05/05/23 15:16 Intake Total 2099 Balance 2099 Current Meds Ordered / Administered: Current meds ordered / Administered Generic Name Dose Route Start Last Admin Trade Name Freq PRN Reason Stop Dose Admin Acetaminophen 650 mg 05/05/23 14:29 Acetaminophen 325 Mg Tablet PO Q6H PRN PRN Pain 1-10 Or Fever >100.7 Enoxaparin Sodium 40 mg 05/06/23 10:00 Enoxaparin 40 Mg/0.4 Ml Syringe SC DAILY VINCE Sodium Chloride 1,000 mls @ 150 mls/hr 05/05/23 14:29 IV 05/06/23 03:48 .Q6H40M VINCE Vancomycin IV-PHARMACY TO DOSE 500 mls @ 250 mls/hr 05/05/23 14:29 1 each/ Sodium Chloride IV PRN PRN Rx to Dose Protocol Piperacillin Sod/Tazobactam 50 mls @ 12.5 mls/hr 05/05/23 22:00 Sod 3.375 gm/ Sodium Chloride IV Q8 VINCE Sodium Chloride 250 mls @ 15 mls/hr 05/05/23 14:40 IV .[id number] PRN Additional IVPB Infusion Sodium Chloride 250 mls @ 15 mls/hr 05/05/23 14:40 IV .[id number] PRN Saline Flush Vancomycin HCl 500 mg [...] 1 lab 05/06/23 23:30 Vancomycin Trough/Random Due [facility] 05/07/23 03:30 DAILY [facility] Lab / Micro Data 05/05/23 12:02 05/05/23 [...] 77.9 H, Lymph % (Auto) 13.0 L, [place] % (Auto) 8.2, Eos % (Auto) 0.1, [...] Clarity Cloudy, Urine pH 6.5, Ur Specific [place] 1.015, Urine Protein 100 H, Urine Glucose [...] 13:36 EST Reading Location ID and State: [facility] / MD Tel , Service support , Chest X-Ray 05/05/23 12:20 IMPRESSION: Right lower lobe pneumonia. Question small left lower lobe infiltrate. Electronically Signed: Cricket Lancaster MD at 12:51 EST , Assessment and Plan . Assessment and [...] this encounter was completed via telemedicine 05/05/23 0331 <Electronically signed by Jd Gonzalez MD> Cosigner Signature (if applicable): CC: [employer] Maddy Monte; Dr. Parish Sanchez MD; Dr. Brain Franks MD; Dr. Rafael Mahan DO; Dr. Vinnie Castillo MD; Dr. Max Mata MD; Dr. Germania Moore MD; Dr. López Pena MD; Dr. Michael Mansfield MD; Dr. Augie Davila MD; Dr. Jd Gonzalez MD; Dr. Vaughn Arnold MD; Dr. Elvira Jones MD~ Signed [facility] Work Phone: 1(857) 772-298703-03-2024 History and physical note Author Abril [facility] May 05, 2023 3:42pm Note Date/Time May 05, 2023 1:56 pm [facility] Medical Records Department [address] [place] [address] History & Physical Exam 05/05/23 1345 MR#: [id number] Acct: [id number] Name: DREA COPELAND Rep #:[id number] : 1960 63 From: Abril Barrera MD [...] of breath. He was brought from his detention facility. He was noted to be short of breath and somnolent in his SNF. Patient was alert but could not give much of a history. Vitals in the ED were BP of 94/60, RI of 102, RR of 25 and oxygen [...] respiratory failure due to community acquired pneumonia. [facility] Medical History (Updated 05/05/23 @ 13:52 by [...] 77.9 H, Lymph % (Auto) 13.0 L, [place] % (Auto) 8.2, Eos % (Auto) 0.1, [...] Clarity Cloudy, Urine pH 6.5, Ur Specific [place] 1.015, Urine Protein 100 H, Urine Glucose [...] full code. Charges/Coding Visit Charges Inpatient E&M: 78738 Init Hosp L3 Procedures Hospitalists Procedures: 58943 Advncd Care Plan 30 Min 05/05/23 1542 <Electronically signed by Abril Barrera MD> Cosigner Signature (if applicable): CC: KATIE Monte; Dr. Abril Barrera MD~ Signed [facility] Work Phone: 1(391) 788-828103-03-2024 Consult note Author Abril Barrera [facility] May 05, 2023 2:57pm Note Date/Time May 05, 2023 2:40 pm [facility] Medical Records Department [address] [place] [address] Pharmacokinetic/Renal -Consult 05/05/23 1440 MR#: [id number] Acct: [id number] Name: DREA COPELAND Rep #:[id number] : 1960 63 From: Vic Leon PCP: [...] Date Abril Barrera MD CC: ~ Signed [facility] Work Phone: 1(974) 467-392710-14-2023 NoteHNO ID: [id number] Author: Note, Interface Service: ? Author Type: ? Type: Progress Notes Filed: 12/15/2022 6:01 AM Note Text: Epic Scheduled Downtime: 12/15/2022 1:00:00 AM to 12/15/2022 1:28:00 [facility]10-09-2023 NoteHNO ID: [id number] Author: Cha Willingham DO Service: Hospital Medicine [...] Doctor: Cha Willingham DO Primary Care Provider: [employer] VERONICA My Medical Team Members: Treatment Team: Attending [...] permissive hypertension was followed by stroke neurologist [employer], PT and OT to work with patient, [...] preference was to be transferred back to [facility] and George Singh accepted with transport plan [...] Transitions of Care Critical Issues: SPECIALIST FOLLOW-UP: MD Neurologist LABS AND PROCEDURES PENDING AT DISCHARGE: No pending results. FOLLOW-UP APPOINTMENTS ALREADY SCHEDULED WITH A [facility] PROVIDER: No future appointments. ALLERGIES [...] 1 Active Anticoagulant I have performed the [id number] and relevant services for a total of >30 minutes. SIGNATURE: Cha Willingham DO DATE: December 10, 2022 TIME: 1:43 [facility]10-09-2023 NoteHNO ID: [id number] Author: Luz Maria Leon RT(Aziza) Service: ? Author Type: Technologist Type: Progress [...] DATA: Not applicable SIGNED BY: Luz Maria Leon, RT(R) December 10, 2022 9:29 [facility]10-08-2023 NoteHNO ID: [id number] Author: Taiwo Taylor RN Service: Care Management Author Type: Registered Nurse Type: Care Mgt Progress Note Filed: 12/09/2022 1:17 PM Note Text: CARE MANAGEMENT PROGRESS NOTE SERVICE DATE: 12/09/2022 SERVICE TIME: 10:05 AM LOS: [address] Bustillo pt will need to be admitted for probable stroke, but pt is service connected [place] and [place] [facility] [place]. Called [facility] and spoke to Serenity who will review clinicals that were faxed and call back. 11:05 Josephine from [facility] called back, states she will fax over consent to transfer form for pt to complete and will review case with their ED physician for approval for ED to ED transfer. If approved, she will arrange transportation. 13:10 Josephine from [facility] called back, states their ED physician does not want to do ED to ED transfer, would rather pt be evaluated by their neurologist for direct admit to neurology, but they do not have an on-call neurologist over the weekend. Josephine states to admit pt here at [facility] today and they will follow up in the morning for transfer to [facility]. Dr. Bustillo notified. SIGNATURE: Taiwo Taylor RN PATIENT NAME: Drea Copeland DATE: December 09, 2022 TIME: 10:05 AM PAGER/CONTACT #: [phone] * Diagnosis Onset Date Resolution Status Acute hypoxemic respiratory failure acute Pneumonia acute [facility] Work Phone: Evaluation note* Diagnosis Onset Date Resolution Status Acute hypoxemic respiratory failure acute Pneumonia acute Sepsis without septic shock acute [facility] Work Phone: Evaluation note* Diagnosis Onset Date Resolution Status Acute hypoxemic respiratory failure resolved Pneumonia resolved Sepsis without septic shock resolved [facility] Work Phone: Evaluation note* Diagnosis Onset Date Resolution Status Admit Date Cerebrovascular disease acute S eptember 2024 9:36am Hyperlipidemia acute November 09, 2024 9:36am Vascular dementia acute Septemb er 2024 9:36am [facility] Work Phone: Hospital Discharge instructions Additional Instructions [...] his abdomen did not show any acute pathology.[facility] Work Phone: Reason for referral (narrative)No reason for referral information availableWooSelect Medical [facility] Work Phone: Chief Complaint and Reason for [...] RESPIRATORY FAILURE ACUTE HYPOXIC RESPIRATORY FAILURE N/V LABWORK Hospital FU Reason for Visit Acute hypoxemic resp iratory [...] Cerebrovascular disease, Hyperlipidemia August 18, 2024 12:54pm Chief Complaint Admit Date STROKE July 09, 2024 9:02am EORDERS July 20, 2024 10:15 am CEREBROVASCULAR DISEASE July 22, 2024 8 :07am 30 DAY MONITOR July 22, 2024 9:00a m Cerebrovascular disease, Hyperlipidemia August 18, 2024 12:54pm HX CVA August 18, 2024 1:07 pm VAS DEMENTIA, HX CVA September 02, 2024 7:13 am Chief Complaint Admit Date EORDERS July 20, 2024 10:15 am CEREBROVASCULAR DISEASE July 22, 2024 8 :07am 30 DAY MONITOR July 22, 2024 9:00a m Cerebrovascular disease, Hyperlipidemia August 18, 2024 12:54pm HX CVA August 18, 2024 1:07 pm VAS DEMENTIA, HX CVA September 02, 2024 7:13 am 4 M FU November 09, 2024 9:36am Reason for Visit Admit Date Cerebrovascular disease November 09, 2 025 9:36am Hyperlipidemia November 09, 2024 9:36am Vascular dementia November 09, 2024 9:36am Advance Directives Advance Directive Response Recorded Date/ Time Living Will No May 05, 2023 11:56am Power of Tool Dispatcher No May 04 11:56am Advance Directive Response Recorded Date/ Time Living Will No May 05, 2023 2:40pm Power of Tool Dispatcher No May 04 2:40pm Advance Directive Response Recorded Date/ Time Living Will No May 15, 2023 9:09am Power of Tool Dispatcher No May 14 9:09am Advance Directive Response Recorded Date/ Time Living Will No June 19, 2023 3:12pm Power of Tool Dispatcher No June 18 3:12pm Advance Directive Response Recorded Date/ Time Living Will No August 10, 2023 2 :02pm Do you have a Healthcare Power of Tool Dispatcher? No August 10, 2023 2:02pm Summary Purpose Family History Relationship Condition Age at Onset Recorded Date/T [...] Member Role Status Dates Maddy Monte , [employer] Primary Care Provider Acti ve Team Status: Active Member Role Status Dates Dr. Lawrence Skaggs DO Emergency Provider Active Maddylyric Monte , [employer]C Primary Care Provider Acti ve Dr. Abril Barrera MD Admit Provider, Attending Prov ider Active Team Status: Active Member Role Status Dates Dr. Lawrence Skaggs DO Emergency Provider Active Maddylyric Monte , [employer]C Primary Care Provider Acti ve Dr. Abril [...] Other Provider Active Dr. Roverto Zavala , Referring Provider, Other Provider Active Team Status: Active Member Role Status Dates Dr. Lawrence Skaggs , DO Emergency Provider Active Maddy Statlamineos , [employer]-C Primary Care Provider Acti ve Dr. Abril [...] Mansfield MD Other Provider Active Dr. Augie Daivla MD Other Provider Active Dr. Jd Gonzalez MD Other Provider Active Dr. Vaughn Arnold MD Other Provider Active Team Status: Active Member Role Status Dates Maddy Monte , [employer]C Primary Care Provider Acti ve Dr. Ryan Larios , DO Attending Provider Active Team Status: Active Member Role Status Dates Dr. Lawrence Skaggs , DO Emergency Provider Active Maddyjimmie Monte , [employer]-C Primary Care Provider Acti ve Dr. Abril [...] Skaggs , DO Emergency Provider Active Maddy Stathopkaty , [employer]-C Primary Care Provider Acti ve Dr. Abril Barrera MD Admit Provider, Other Provider Active Dr. Roverto Zavala , DO Attending Provider, Other Provider Active Team Status: Inactive Member Role Status Dates Dr. Lawrence Skaggs , DO Emergency Provider Active Maddy Monte , [employer]C Primary Care Provider Acti ve Dr. Abril Barrera MD Admit Provider, Other Provider Active Dr. Roverto Zavala , DO Attending Provider Active Team Status: Active Member Role Status Dates Maddy Monte [employer] Primary Care Provider Acti ve Dr. Ryan Larios , DO Attending Provider Active Dr. Roverto Zavala , DO Referring Provider Active Team Status: Active Member Role Status Dates Dr. Lawrence Skaggs , Emergency Provider Active Maddy Monte , [employer]-C Primary Care Provider Acti ve Dr. Abril [...] Other Provider Active Dr. Ryan Larios , Attending Provider Active Team Status: Inactive Member Role Status Dates Dr. Venancio Boswell MD Emergency Provider Active Dr. Juan C Barnes MD Primary Care Provider Active Team Status: Inactive Member Role Status Dates Dr. Juan C Barnes MD Primary Care Provider, Referring Provider Active Dr. Ryan Larios DO Attending Provider Active Team Status: Active [...] Provider Active S tart: August 18, 2024 Team Status: Active Member Role/Relationship Status Dates Dr. Juan C Barnes MD Primary Care Provider Active Team Status: Inactive Member Role/Relationship Status Dates Dr. Juan C Barnes MD Primary Care Provider Active Start: July 09, 2024 End: July 09, 2024 Dr. uJan C Barnes MD Referring Provider Active Start: July 09, 2024 End: July 09, 2024 Dr. Werner Mccarty MD Attending Provider Active Start: July 09, 2024 End: July 09, 2024 Team Status: Inactive Member Role/Relationship Status Dates Dr. Juan C Barnes MD Primary Care Provider Active Start: July 20, 2024 End: July 20, 2024 Dr. Werner Mccarty MD Attending Provider Active Start: July 20, 2024 End: July 20, 2024 Dr. Werner Mccarty MD Referring Provider Active Start: July 20, 2024 End: July 20, 2024 Team Status: Active Member Role/Relationship Status Dates Dr. Juan C Barnes MD Primary Care Provider Active Start: July 22, 2024 Dr. Werner Mccarty MD Attending Provider Active Start: July 22, 2024 Dr. Werner Mccarty MD Referring Provider Active Start: July 22, 2024 Team Status: Active Member Role/Relationship Status Dates Dr. Juan C Barnes MD Primary Care Provider Active Start: July 22, 2024 Dr. Marky Matamoros MD Attending Provider Active Start: July 22, 2024 Dr. Werner Mccarty MD Referring Provider Active Start: July 22, 2024 Team Status: Inactive Member Role/Relationship Status Dates Dr. Juan C Barnes MD Primary Care Provider Active Start: August 18, 2024 End: August 18, 2024 Dr. Werner Mccarty MD Attending Provider Active Start: August 18, 2024 End: August 18, 2024 Dr. Werner Mccarty MD Referring Provider Active Start: August 18, 2024 End: August 18, 2024 Team Status: Active Member Role/Relationship Status Dates Dr. Nam Sparks MD Attending Provider Active Start: August 18, 2024 Dr. Werner Mccarty MD Referring Provider Active Start: August 18, 2024 Team Status: Active Member Role/Relationship Status Dates Dr. Juan C Barnes MD Primary Care Provider Active Start: August 18, 2024 Dr. Zane Wetzel MD Attending Provider Active S tart: August 18, 2024 Team Status: Inactive Member Role/Relationship Status Dates Dr. Juan C Barnes MD Primary Care Provider Active Start: September 02, 2024 End: September 02, 2024 Dr. Werner Mccarty MD Attending Provider Active Start: September 02, 2024 End: September 02, 2024 Dr. Werner Mccarty MD Referring Provider Active Start: September 02, 2024 End: September 02, 2024 Team Status: Inactive Member Role/Relationship Status Dates Dr. Juan C Barnes MD Primary Care Provider Active Start: July 20, 2024 End: July 20, 2024 Dr. Werner Mccarty MD Attending Provider Active Start: July 20, 2024 End: July 20, 2024 Dr. Werner Mccarty MD Referring Provider Active Start: July 20, 2024 End: July 20, 2024 Team Status: Active Member Role/Relationship Status Dates Dr. Juan C Barnes MD Primary Care Provider Active Start: July 22, 2024 Dr. Werner Mccarty MD Attending Provider Active Start: July 22, 2024 Dr. Werner Mccarty MD Referring Provider Active Start: July 22, 2024 Team Status: Active Member Role/Relationship Status Dates Dr. Juan C Barnes MD Primary Care Provider Active Start: July 22, 2024 Dr. Marky Matamoros MD Attending Provider Active Start: July 22, 2024 Dr. Werner Mccarty MD Referring Provider Active Start: July 22, 2024 Team Status: Inactive Member Role/Relationship Status Dates Dr. Juan C Barnes MD Primary Care Provider Active Start: August 18, 2024 End: August 18, 2024 Dr. Werner Mccarty MD Attending Provider Active Start: August 18, 2024 End: August 18, 2024 Dr. Werner Mccarty MD Referring Provider Active Start: August 18, 2024 End: August 18, 2024 Team Status: Active Member Role/Relationship Status Dates Dr. Nam Sparks MD Attending Provider Active Start: August 18, 2024 Dr. Werner Mccarty MD Referring Provider Active Start: August 18, 2024 Team Status: Active Member Role/Relationship Status Dates Dr. Juan C Barnes MD Primary Care Provider Active Start: August 18, 2024 Dr. Zane Wetzel MD Attending Provider Active S tart: August 18, 2024 Team Status: Inactive Member Role/Relationship Status Dates Dr. Juan C Barnes MD Primary Care Provider Active Start: September 02, 2024 End: September 02, 2024 Dr. Werner Mccarty MD Attending Provider Active Start: September 02, 2024 End: September 02, 2024 Dr. Werner Mccarty MD Referring Provider Active Start: September 02, 2024 End: September 02, 2024 Team Status: Inactive Member Role/Relationship Status Dates Dr. Juan C Barnes MD Primary Care Provider Active Start: November 09, 2024 End: November 09, 2024 Dr. Juan C Barnes MD Referring Provider Active Start: November 09, 2024 End: November 09, 2024 Dr. Werner Mccarty MD Attending Provider Active Start: November 09, 2024 End: November 09, 2024 Goals (unrecognized section and content) Goals [...] section and content) DATE CREATED AUTHOR 05/30/2023 [facility] DATE CREATED AUTHOR AUTHOR'S ORGANIZ ATION 09/13/2024 [facility] FOR RECORDS PERTAINING TO PATIENTS WHO ARE [...] BE BASED ON THE PRIMARY CLINICAL RECORDS. [employer] provides no warranty or guarantee of the accuracy or completeness of information in this document.
== END | disposition home or self-care (01) ==
PROVIDERS: PCP Family Medicine; Referring Provider Psychiatry & Neurology Neurology; Visit Provider Psychiatry & Neurology Neurology
DX: I67.9 Cerebrovascular disease, unspecified (principal)